=== PATIENT | female | born 1955 | race Caucasian/White ===

== ENCOUNTER 2023-04-28 14:49 | Emergency (ER) | payer MEDICARE, SELFPAY ==
[2023-04-28] VITALS (15 sets, daily range): BP systolic 144–218; BP diastolic 78–112; PULSE 59–72; RESP 14–29; TEMP 36.7; O2SAT 95–97; BMI 23.1
--- NOTE | 2023-04-28 16:32 | ECG_ITS ---
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
--- NOTE | 2023-04-28 16:33 | ED_ITS ---
HPI - General Adult General Chief complaint: Recheck/Abnormal Lab/Rx Stated complaint: HIGH BLOOD PRESSURE Time Seen by Provider: 04/28/23 16:26 Source: patient Mode of arrival: walk-in History of Present Illness HPI narrative: 67-year-old female presents for elevated blood pressure. She has a history of hypertension and takes 20 mg of lisinopril every day and she hasn't missed any doses and she took it this morning, her regular scheduled time. She felt a little bit dizzy today and she checked her blood pressure was high. She had been seen at another hospital's emergency department three days ago and at that time was diagnosed with radiculopathy after an extensive workup. She's been on prednisone. She doesn't complain of fever or chest pain or vomiting. Related Data Home Medications Medication Instructions Recorded Confirmed levothyroxine 25 mcg tablet 25 mcg PO DAILY 04/28/23 04/28/23 lisinopril 20 mg tablet 20 mg PO DAILY 04/28/23 04/28/23 simvastatin 40 mg tablet 40 mg PO QPM 04/28/23 04/28/23 Allergies Allergy/AdvReac Type Severity Reaction Status Date / Time cephalexin [From Keflex] Allergy Severe Verified 04/28/23 15:17 ciprofloxacin [From Cipro] Allergy Severe Verified 04/28/23 15:17 naproxen Allergy Severe Verified 04/28/23 15:17 Penicillins Allergy Severe Verified 04/28/23 15:17 Review of Systems ROS Narrative A ten point review of systems is negative except as noted above. Exam Narrative Exam Narrative: Nurses note and vital signs reviewed and patient is not hypoxic. General: The patient appears well and in no apparent distress. Patient is resting comfortably on cart. Skin: Warm, dry, no pallor noted. There is no rash noted. Head: Normocephalic, atraumatic Eye: Normal conjunctiva, no drainage Ears, Nose, Mouth, and Throat: oral mucosa is moist. Nares patent. Cardiovascular: Regular Rate and Rhythm Respiratory: Patient is in no distress, no accessory muscle use, lungs are clear to auscultation, no wheezing, rales or rhonchi Back: non-tender GI: soft and nontender Musculoskeletal: The patient has no evidence of calf tenderness, no pitting edema, symmetrical pulses noted bilaterally Neurological: A&O, normal speech Psychiatric: Cooperative Constitutional Vital Signs, click to edit/add: Last Vital Signs Temp 98.0 F 04/28/23 15:07 Pulse 68 04/28/23 17:00 Resp 29 H 04/28/23 17:00 BP 152/80 H 04/28/23 17:00 Pulse Ox 97 04/28/23 17:00 O2 Del Method Room Air 04/28/23 15:07 Course Vital Signs Vital signs: Vital Signs Temperature 98.0 F 04/28/23 15:07 Pulse Rate 64 04/28/23 15:07 Respiratory Rate 16 04/28/23 15:07 Blood Pressure 180/102 H 04/28/23 15:07 Pulse Oximetry 95 04/28/23 15:07 Oxygen Delivery Method Room Air 04/28/23 15:07 Temperature 98.0 F 04/28/23 15:07 Pulse Rate 68 04/28/23 17:00 Respiratory Rate 29 H 04/28/23 17:00 Blood Pressure 152/80 H 04/28/23 17:00 Pulse Oximetry 97 04/28/23 17:00 Oxygen Delivery Method Room Air 04/28/23 15:07 Medical Decision Making MDM Narrative Medical decision making narrative: the patient presented with elevated blood pressure. This may be due to the prednisone that she was recently started on and she took her last dose today. She was given IV hydralazine with appropriate decrease in her blood pressure. She has an appointment with her doctor in three days that she will keep. She will check her blood pressure twice a day beginning tomorrow and will have her blood pressure rechecked at her appointment. Treatment diagnosis and follow-up were discussed with the patient. Differential Diagnosis Differential Diagnosis: hypertension, acute kidney injury Lab Data Lab results reviewed: Yes I reviewed the patient's lab results Labs: Lab Results 04/28/23 Range/Units 16:25 WBC 9.3 (4.0-11.0) 10^3/uL RBC 4.01 L (4.20-5.40) 10^6/uL Hgb 12.8 (12.0-16.0) g/dL Hct 39.6 (36.0-48.0) % MCV 98.8 (81.0-99.0) fL MCH 31.9 (26.7-34.0) pg MCHC 32.3 (29.9-35.2) g/dL RDW 13.0 (11.0-15.0) % Plt Count 237 (150-450) 10^3/uL MPV 10.1 (9.5-13.5) fL Neut % (Auto) 84.2 H (43.0-75.0) % Lymph % (Auto) 14.3 L (20.5-60.0) % [place] % (Auto) 0.9 L (1.7-12.0) % Eos % (Auto) 0.0 L (0.9-7.0) % Baso % (Auto) 0.2 (0.2-2.0) % Neut # (Auto) 7.8 H (1.4-6.5) 10^3/uL Lymph # (Auto) 1.3 (1.2-3.8) 10^3/uL [place] # (Auto) 0.1 L (0.3-0.8) 10^3/uL Eos # (Auto) 0.0 (0.0-0.7) 10^3/uL Baso # (Auto) 0.0 (0.0-0.1) 10^3/uL Abs Immat Gran (auto) 0.04 H (0.00-0.03) 10^3/uL Imm/Tot Granulo (auto) 0.4 (0.0-0.5) % Sodium 140 (136-145) mmol/L Potassium 3.9 (3.5-5.1) mmol/L Chloride 104 (98-107) mmol/L Carbon Dioxide 23.5 (21.0-32.0) mmol/L Anion Gap 16.4 BUN 25.0 H (7.0-18.0) mg/dL Creatinine 0.84 (0.55-1.02) mg/dL Est GFR ( Amer) >60 (>=60) Est GFR (Non-Af Amer) >60 (>=60) BUN/Creatinine Ratio 29.8 Glucose 123 H (74-106) mg/dL Calcium 8.9 (8.5-10.1) mg/dL ECG Data Attestation: I personally reviewed and interpreted this ECG as follows: (EKG on my interpretation shows normal sinus rhythm without acute change and a rate of 57.) Critical Care Time Critical Care Time Critical Care Time: Yes Total Critical Care Time: 35 Attestation: Due to the high probability of sudden and clinically significant deterioration in the patient's condition he/she required the highest level of my preparedness to intervene urgently I provided critical care time including documentation time, medication orders and management, reevaluation, vital sign assessment, ordering and reviewing of lab tests, ordering and reviewing of x-ray studies, and admission orders. Aggregate critical care time is 35 minutes including only time during which I was engaged in work directly related to his/her care and did not include time spent treating other patients simultaneously. Discharge Plan Discharge Chief Complaint: Recheck/Abnormal Lab/Rx Clinical Impression: Hypertension Patient Disposition: Home, Self-Care Time of Disposition Decision: 17:21 Condition: Good Mode of Transportation: Private Vehicle Prescriptions / Home Meds: No Action lisinopril 20 mg tablet 20 mg PO DAILY levothyroxine 25 mcg tablet 25 mcg PO DAILY simvastatin 40 mg tablet 40 mg PO QPM Instructions: Hypertension (ED) Additional Instructions: see her doctor at your appointment on Saturday. Check your blood pressure twice a day until then. Stand Alone Forms: Portal Instructions Referrals: Olu Coelho MD [Primary Care Provider] - 1 week
[2023-04-28 16:42] LABS: Basophils Percent Auto 0.2 % (0.2-2.0); Hematocrit 39.6 % (36.0-48.0); Hemoglobin 12.8 g/dL (12.0-16.0); Immature Granulocytes Abs Auto 0.04 10^3/uL (0.00-0.03); Immature Granulocytes Pct Auto 0.4 % (0.0-0.5); Lymphocytes Absolute Auto 1.3 10^3/uL (1.2-3.8); Lymphocytes Percent Auto 14.3 % (20.5-60.0); Mean Corpuscular HGB Conc 32.3 g/dL (29.9-35.2); Mean Corpuscular Hemoglobin 31.9 pg (26.7-34.0); Mean Corpuscular Volume 98.8 fL (81.0-99.0); Mean Platelet Volume 10.1 fL (9.5-13.5); Monocytes Absolute Auto 0.1 10^3/uL (0.3-0.8); Monocytes Percent Auto 0.9 % (1.7-12.0); Neutrophils Absolute Auto 7.8 10^3/uL (1.4-6.5); Neutrophils Percent Auto 84.2 % (43.0-75.0); Platelet Count 237 10^3/uL (150-450); Red Blood Count 4.01 10^6/uL (4.20-5.40); White Blood Count 9.3 10^3/uL (4.0-11.0)
[2023-04-28] MEDS: HYDRALAZINE HCL 20 MG/ML VIAL 10 MG IVP (16:48)
[2023-04-28 16:51] LABS: Anion Gap 16.4; BUN Creatinine Ratio 29.8; Calcium 8.9 mg/dL (8.5-10.1); Carbon Dioxide 23.5 mmol/L (21.0-32.0); Chloride 104 mmol/L (98-107); Estimated GFR (African America >60 (>=60); Estimated GFR (Non-African Ame >60 (>=60); Glucose 123 mg/dL (74-106); Potassium 3.9 mmol/L (3.5-5.1); Sodium 140 mmol/L (136-145)
== END 2023-04-28 17:51 | disposition home or self-care (01) ==
PROVIDERS: Emergency Provider Emergency Medicine; PCP Family Medicine
DX: I10 Essential (primary) hypertension (principal); Z79.899 Other long term (current) drug therapy; Z79.890 Hormone replacement therapy
CPT/HCPCS: 36415; 80048; 85025; 93005; 96374; 99285

== ENCOUNTER 2023-05-22 06:49 | Outpatient (OUT) | payer MEDICARE, SELFPAY ==
--- NOTE | 2023-05-22 | MM_ITS ---
Patient Name: MARK SAL MR#: [id number] : 1955 Exam Date: 05/22/2023 Ordering Doctor: RAFIA Corona CNP RADIOLOGY REPORT PROCEDURE: MM TOMOSYNTHESIS SCREENING BI COMPARISON: MG MAMM SCREEN 3D TACO CAD, 10/31/2021. MG MAMM SCREEN 3D TACO CAD, 10/28/2020. MG MAMM SCREEN TACO W CAD, 10/27/2019. MG MAMM TACO SCRN W CAD DIG, 02/07/2016. INDICATIONS: Taco Screening Mammogram Calculator Name NCI Breast Cancer Risk Assessment Tool 5 Year Breast Cancer Risk 1.40% Lifetime Breast Cancer Risk 4.60% Personal Breast Cancer No Personal Ovarian Cancer No Treatments None Family Cancers Grandmother-maternal with throat cancer at age ~60; Mother with lung cancer at age 82; Father with throat cancer at age 82. LOCATION: [facility] BREAST COMPOSITION: Heterogeneously dense,which may obscure small masses. FINDINGS: DIAGNOSTIC CATEGORY 1--NEGATIVE. RIGHT BREAST: No significant suspicious finding. No significant change has occurred. LEFT BREAST: No significant suspicious finding. No significant change has occurred. RECOMMENDATIONS: ROUTINE MAMMOGRAM AND CLINICAL EVALUATION IN 12 MONTHS. PLEASE NOTE: A NORMAL MAMMOGRAM DOES NOT EXCLUDE THE POSSIBILITY OF BREAST CANCER. A CLINICALLY SUSPICIOUS PALPABLE LUMP SHOULD BE BIOPSIED. Dictated by: Vince Drew M.D. on 05/22/2023 at 10:36 Approved by: Vince Drew M.D. on 05/22/2023 at 10:38
--- OUTSIDE RECORDS SUMMARY | 2023-05-22 06:52 | XMS_ITS | CCD ---
Author Name Unknown Address [address] [facility] [facility] [address] [place] [address] Organization [facility] Care Team Providers Care Compressor Operator Name Role Phone ELIZABETH, DR OLU Martinez Primary Care Unavailable PAY ., DR HUTCHINS Admitting Unavailable PAY ., DR HUTCHINS Attending Unavailable PAY ., DR HUTCHINS Consulting Unavailable NADERER, DR OLU Martinez Primary Care Unavailable NADERER, DR OLU Martinez Admitting Unavailable NADERER, DR OLU Martinez Attending Unavailable NADERER, DR OLU Martinez Consulting Unavailable NADERER, DR OLU Martinez Primary Care Unavailable NADERER, DR OLU Martinez Admitting Unavailable NADERER, DR OLU Martinez Referring Unavailable GERONIMO, DR JIMENEZ Hernandez Consulting Unavailable NADERER, DR OLU Martinez Attending Unavailable NADERER, DR OLU Martinez Consulting Unavailable CECILY Falk Emergency Provider [phone] MD Olu Johnson Primary Care Provider [phone] Candelaria Falk Attending Unavailable Candelaria Falk Admitting Unavailable Olu Johnson Primary Care Unavailable Allergies Allergy Classification Reported Allergen(s) Allergy Type Date of Onset Reaction(s) Facility (1 source) Cephalexin Drug Allergy 07-28-19 [facility] (1 source) Ciprofloxacin Drug Allergy 07-28-19 [facility] (1 source) Penicillin Drug Allergy 07-28-19 [facility] (2 sources) Cephalexin; Translations: [cephalexin] Drug Allergy 04-25-20 Dizziness [facility] (2 sources) Ciprofloxacin; Translations: [ciprofloxacin] Drug Allergy 04-25-20 Gastrointestinal Upset [facility] (2 sources) Penicillins; Translations: [Penicillins] Allergy to substance 04-25-20 Unknown Reaction [facility] Medications Current Medications Medication Drug Class(es) Dates Sig (Normalized) Sig (Original) levothyroxine sodium 0.025 mg oral tablet (1 source) l-Thyroxine Start: 04-25-2023 Levothyroxine Active MCG TABLET April 25, 2023 12:00am lisinopril 20 mg oral tablet (1 source) Angiotensin Converting Enzyme Inhibitor Start: 04-25-2023 Lisinopril Active MG TABLET April 25, 2023 12:00am naproxen 500 mg oral tablet (1 source) Nonsteroidal Anti-inflammatory Drug Start: 04-25-2023 take 500 mg by mouth twice daily Naproxen Active 500 MG PO Twice daily April 25, 2023 12:00am predniSONE 20 mg oral tablet (1 source) Start: 04-25-2023 take 40 mg by mouth once daily Prednisone Active 40 MG PO Daily 6 April 25, 2023 12:00am simvastatin 40 mg oral tablet (1 source) HMG-CoA Reductase Inhibitor Start: 04-25-2023 Simvastatin Active MG TABLET April 25, 2023 12:00am Problems Active Problems Problem Classification Problem Date Documented Da te Episodic/Chronic Disorders of lipid metabolism (2 sources) Pure hypercholesterole fang, unspecified; Translations: [Hyperlipidemia, unspecified] Onset: 10-21-2021 Chronic Essential hypertension (5 sources) Essential (primary) hypertension; Translations: [ESSENTIAL PRIMARY HYPERTENSION] Onset: 10-18-2021 Chronic Headache; including migraine (1 source) Headache; including migraine; Translations: [HEADACHE UNSPECIFIED] Onset: 07-31-2022 Nausea and vomiting (4 sources) Nausea with vomiting, unspecified; Translations: [NAUSEA WITH VOMITING UNSPECIFIED] Onset: 07-27-2022 Episodic Nonspecific chest pain (2 sources) Chest pain; Translations: [Chest pain, unspecified] Onset: 04-25-2023 04-25-2023 Episodic Other aftercare (1 source) 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; Translations: [OTH SHELTER CURRENT DRUG THERAPY] Onset: 07-31-2022 Episodic Other gastrointestinal disorders (1 source) Diarrhea, unspecified; Translations: [DIARRHEA UNSPECIFIED] Onset: 07-31-2022 Episodic Screening and history of mental health and substance abuse codes (1 source) Personal history of nicotine dependence; Translations: [PERSONAL HISTORY OF NICOTINE DEPEND] Onset: 07-31-2022 Episodic Spondylosis; intervertebral disc disorders; other back problems (1 source) Nerve root disorder; Translations: [Radiculopathy, site unspecified] 04-25-2023 Episodic Thyroid disorders (1 source) Hypothyroidism, unspecified; Translations: [HYPOTHYROIDISM UNSPECIFIED] Onset: 10-21-2021 Chronic Past or Other Problems Problem Classification Problem Date Documented Da te Episodic/Chronic Other lower respiratory disease (4 sources) Solitary pulmonary nodule; Translations: [SOLITARY PULMONARY NODULE] Onset: 10-31-2021 Episodic Other screening for suspected conditions (not mental disorders or infectious disease) (1 source) Encounter for screening mammogram for malignant neoplasm of breast; Translations: [ENC SCR MAMMO MALIG NEOPLASM BREAST] Onset: 11-02-2021 Episodic Residual codes; unclassified (1 source) Family history of malignant neoplasm of trachea, bronchus and lung; Translations: [FAM HX MALIG NEOPLSM TRACH BRON LNG] Onset: 11-02-2021 Episodic Residual codes; unclassified (1 source) Family history of malignant neoplasm of other organs or systems; Translations: [FAM HX MALIG NEOPLASM OTH ORGN/SYS] Onset: 11-02-2021 Episodic Results Test Name Value Interpretation Reference Range Facility Activated partial thrombopla stin time (aPTT) in platelet poor plasma by coagulation aOrdered By: Candelaria Falk on 04-25-2023 aPTT Coag (PPP) [Time] 27.5 s 25.1-36.5 [facility] Comment on above: A hematocrit value g reater than 55% may lead to inaccurate results in coagulation testing. Patients having hematocrit values >55% require a special collection tube for coagulation studies. Please contact the laboratory at [phone] for redraw instructions. B-Type Natriuretic Peptideon 04-25-2023 Natriuretic peptide B (Bld) [Mass/Vol] 44.0 pg/mL Normal 5-100 [facility] Comment on above: Result Comment: PERF ORMED BY: [place] [address] PATHOLOGIST SWING RIDE OPERATOR YUSRA WHITE M.D. Performed By: #### P TT, BMP, CBC, HS TROP, PT, BNP #### [address] Basic Metabolic Panelon 12- Anion gap [Moles/Vol] 12.1 mmol/L Normal 6.0-15.0 [facility] Comment on above: Performed By: #### P TT, BMP, CBC, HS TROP, PT, BNP #### [facility] [address] Calcium [Mass/Vol] 9.5 mg/dL Normal 8.6-10.3 [facility] Comment on above: Performed By: #### P TT, BMP, CBC, HS TROP, PT, BNP #### [facility] [address] Chloride [Moles/Vol] 103 mmol/L Normal 98-107 [facility] Comment on above: Performed By: #### P TT, BMP, CBC, HS TROP, PT, BNP #### [facility] [address] CO2 [Moles/Vol] 27.0 mmol/L Normal 21.0-31.0 [facility] Comment on above: Performed By: #### P TT, BMP, CBC, HS TROP, PT, BNP #### [facility] [address] Creatinine [Mass/Vol] 0.81 mg/dL Normal 0.60-1.20 [facility] Comment on above: Performed By: #### P TT, BMP, CBC, HS TROP, PT, BNP #### [facility] [address] [place] [address] [place] Creatinine Clr Calc Pharmacy 57.40 [facility] Comment on above: Result Comment: PERF ORMED BY: [place] [address] PATHOLOGIST SWING RIDE OPERATOR YUSRA WHITE M.D. Performed By: #### P TT, BMP, CBC, HS TROP, PT, BNP #### [facility] [address] [place] [address] [place] GFR/1.73 sq M.predicted MDRD (S/P/Bld) [Vol rate/Area] mL/min/{1.73_m2} Normal [facility] Comment on above: Performed By: #### P TT, BMP, CBC, HS TROP, PT, BNP #### [facility] [address] Glucose [Mass/Vol] 87 mg/dL Normal 70-100 [facility] Comment on above: Result Comment: [place] Glucose Reference Range is dependent on time and content of last meal. Glucose of more than 200 mg/dL in a nonstressed, ambulatory subject supports the diagnosis of Diabetes Mellitus. ADA recommended reference range Performed By: #### P TT, BMP, CBC, HS TROP, PT, BNP #### [facility] [address] Potassium [Moles/Vol] 4.1 mmol/L Normal 3.5-5.1 [facility] Comment on above: Performed By: #### P TT, BMP, CBC, HS TROP, PT, BNP #### [address] Sodium [Moles/Vol] 138 mmol/L Normal 136-145 [facility] Comment on above: Performed By: #### P TT, BMP, CBC, HS TROP, PT, BNP #### [address] Urea nitrogen [Mass/Vol] 17 mg/dL Normal 7-25 [facility] Comment on above: Performed By: #### P TT, BMP, CBC, HS TROP, PT, BNP #### [place] [address] [place] Basophils Auto (Bld) [#/Vol] Ordered By: Candelaria Falk on 04-25-2023 Basophils (Bld) [#/Vol] 0.0 10*3/uL 0.0-0.2 [facility] Basophils/100 WBC Auto (Bld) Ordered By: Candelaria Falk on 04-25-2023 Basophils/100 WBC (Bld) 0.3 % . [facility] COVID CepheidOrdered By: Carie Falk on 04-25-2023 SARS-CoV-2 (COVID-19) Ab IA Ql Negative Negative [facility] Comment on above: This is a duplicate Cepheid Xpert Xpress CoV-2/Flu/RSV Plus RNA by RT-PCR result to be used for statistical tracking purpose only. SARS-CoV-2 (COVID-19) RNA CASSIDY+probe Ql (Unsp spec) [facility] COVID-19 / Flu A/B / RSV PCR on 04-25-2023 SARS-CoV-2 (COVID-19) RNA CASSIDY+probe Ql (Unsp spec) COVID-19 Cepheid Result Negative for SARS-CoV-2 RNA by RT-PCR Flu A Cepheid Result Negative for Flu A RNA by RT-PCR Flu B Cepheid Result Negative for Flu B RNA by RT-PCR RSV Cepheid Result Negative for RSV RNA by RT-PCR COVID19 Blank Space -- Reference: Negative COVID19 Blank Space -- Cepheid Disclaimer The Cepheid Xpert Xpress CoV-2/Flu/RSV Plus has Cepheid Disclaimer not been FDA cleared or approved; this test has Cepheid Disclaimer been authorized by FDA under an EUA for use by Cepheid Disclaimer authorized laboratories; this test has been Cepheid Disclaimer authorized only for the simultaneous qualitative Cepheid Disclaimer detection and differentiation of nucleic acids from Cepheid Disclaimer SARS-CoV-2, influenza A, influenza B, and Cepheid Disclaimer respiratory syncytial virus (RSV), and not for any Cepheid Disclaimer other viruses or pathogens; and this test is only Cepheid Disclaimer authorized for the duration of the declaration that Cepheid Disclaimer circumstances exist justifying the authorization of Cepheid Disclaimer emergency use of in vitro diagnostic tests for Cepheid Disclaimer detection and/or diagnosis of COVID-19 under Cepheid Disclaimer Section 564(b)(1) of the Act, 21 U.S.C. 360bbb- Cepheid Disclaimer 3(b)(1), unless the authorization is terminated or Cepheid Disclaimer revoked sooner. PERFORMED BY: [place] [address] PATHOLOGIST SWING RIDE OPERATOR YUSRA WHITE M.D. [facility] Comment on above: Performed By: #### C EPHEID NEG, COVID19 FLU RSV #### [address] head/brain wo conon 04-25 CT head/brain wo con [facility] [place] [address] [place] [address] CT Scan Report Signed Patient: Edilma Leonardo MR#: [id number] : 1955 Acct:[id number] Age/Sex: 67 / F ADM Date: 04/25/23 Loc: ER Room: Type: [facility] ER Attending Dr: Copies to: Candelaria Falk APRN Ordering Provider: Candelaria Falk APRN Date of Service: 04/25/23 CT/CT head/brain wo con: left arm deficit CT head/brain wo con 04/25/2023 6:08 PM SIGNS AND SYMPTOMS: Left arm numbness and tingling, chest pain TECHNIQUE:Multi-detector CT axial slices of the brain were obtained without IV contrast. CT was performed with one or more of the following dose reduction techniques: Automated exposure control, adjustment of the mA and/or kV according to patient size, or use of iterative reconstruction technique. COMPARISON: None. FINDINGS: There is no shift of the midline structures, acute intracranial bleeding, mass effects, or evidence of acute ischemia. There is periventricular and subcortical white matter hypoattenuation suggesting mild chronic microvascular ischemic change. The ventricular system is normal in size. The brainstem and the cerebellum are unremarkable. The visualized intraorbital contents, the visualized paranasal sinuses, and the infratemporal soft tissues show no acute abnormality. The osseous structures in the skull base and the calvarium show no abnormality. CT/CT head/brain wo con IMPRESSION: No acute intracranial pathology. Findings suggest chronic microvascular ischemic change. Impression dictated by: Lamin Park M.D.04/25/2023 9:04 PM Dictation Location: [place] [address] Transcribed By: JONATHON 04/25/232103 Dictated By: Lamin Park II, MD 04/25/232101 Signed By: 04/25/232103 Normal [facility] Calcium [Mass/volume] in Ser um or PlasmaOrdered By: Candelaria Falk on 04-25-2023 Calcium [Mass/Vol] 9.5 mg/dL 8.6-10.3 [facility] Carbon dioxide, total [Moles /volume] in Serum or PlasmaOrdered By: Candelaria Falk on 04-25-2023 CO2 [Moles/Vol] 27.0 mmol/L 21.0-31.0 [facility] Cepheid COVID PCR Negativeon 04-25-2023 SARS-CoV-2 (COVID-19) RNA CASSIDY+probe Ql (Unsp spec) Negative Normal Negative [facility] Comment on above: Result Comment: This is a duplicate Cepheid Xpert Xpress CoV-2/Flu/RSV Plus RNA by RT-PCR result to be used for statistical tracking purpose only. PERFORMED BY: [place] [address] PATHOLOGIST SWING RIDE OPERATOR YUSRA WHITE M.D. Performed By: #### C EPHEID NEG, COVID19 FLU RSV #### [address] Chloride [Moles/volume] in S pawel or PlasmaOrdered By: Candelaria Falk on 04-25-2023 Chloride [Moles/Vol] 103 mmol/L 98-107 [facility] Complete Blood Count Auto Di ffon 04-25-2023 Basophils (Bld) [#/Vol] 0.0 10*3/uL Normal 0.0-0.2 [facility] Comment on above: Result Comment: PERF ORMED BY: [place] [address] PATHOLOGIST SWING RIDE OPERATOR YUSRA WHITE M.D. Performed By: #### P TT, BMP, CBC, HS TROP, PT, BNP #### [address] Basophils/100 WBC (Bld) 0.3 % Normal . [facility] Comment on above: Performed By: #### P TT, BMP, CBC, HS TROP, PT, BNP #### [address] Eosinophils (Bld) [#/Vol] 0.2 10*3/uL Normal 0.0-0.45 [facility] Comment on above: Performed By: #### P TT, BMP, CBC, HS TROP, PT, BNP #### [address] Eosinophils/100 WBC (Bld) 2.6 % Normal . [facility] Comment on above: Performed By: #### P TT, BMP, CBC, HS TROP, PT, BNP #### [address] Erythrocyte distribution width (RBC) [Ratio] 13.5 % Normal 11.9-15.3 [facility] Comment on above: Performed By: #### P TT, BMP, CBC, HS TROP, PT, BNP #### [address] Hematocrit (Bld) [Volume fraction] 42.5 % Normal 34.0-46.4 [facility] Comment on above: Performed By: #### P TT, BMP, CBC, HS TROP, PT, BNP #### [address] Hemoglobin (Bld) [Mass/Vol] 14.4 g/dL Normal 11.8-15.4 [facility] Comment on above: Performed By: #### P TT, BMP, CBC, HS TROP, PT, BNP #### [address] Lymphocytes (Bld) [#/Vol] 2.9 10*3/uL Normal 1.00-4.8 [facility] Comment on above: Performed By: #### P TT, BMP, CBC, HS TROP, PT, BNP #### [address] Lymphocytes/100 WBC (Bld) 40.1 % Normal . [facility] Comment on above: Performed By: #### P TT, BMP, CBC, HS TROP, PT, BNP #### [address] MCH (RBC) [Entitic mass] 31.9 pg Normal 24.7-34.3 [facility] Comment on above: Performed By: #### P TT, BMP, CBC, HS TROP, PT, BNP #### [address] MCV (RBC) [Entitic vol] 93.8 fL Normal 80-100 [facility] Comment on above: Performed By: #### P TT, BMP, CBC, HS TROP, PT, BNP #### [address] Mean Corpuscular HGB Conc 34.0 g/dL Normal 32.0-35.0 [facility] Comment on above: Performed By: #### P TT, BMP, CBC, HS TROP, PT, BNP #### [address] Monocytes (Bld) [#/Vol] 0.6 10*3/uL Normal 0.0-0.8 [facility] Comment on above: Performed By: #### P TT, BMP, CBC, HS TROP, PT, BNP #### [address] Monocytes/100 WBC (Bld) 20.21 % High 0.00-20.00 [facility] Comment on above: Result Comment: For adults in ED, MDW > 20.0 may be associated with a higher risk of sepsis during the first 12 hrs of hospital admission Performed By: #### P TT, BMP, CBC, HS TROP, PT, BNP #### [address] Monocytes/100 WBC (Bld) 7.9 % Normal . [facility] Comment on above: Performed By: #### P TT, BMP, CBC, HS TROP, PT, BNP #### [address] Neutrophils (Bld) [#/Vol] 3.5 10*3/uL Normal 1.8-7.7 [facility] Comment on above: Performed By: #### P TT, BMP, CBC, HS TROP, PT, BNP #### [address] Neutrophils/100 WBC (Bld) 49.1 % Normal . [facility] Comment on above: Performed By: #### P TT, BMP, CBC, HS TROP, PT, BNP #### [address] NRBC% 0.0 /100{WBC} Normal 0-0.5 [facility] Comment on above: Performed By: #### P TT, BMP, CBC, HS TROP, PT, BNP #### [address] Platelet mean volume (Bld) [Entitic vol] 8.1 fL Normal 6.3-10.7 [facility] Comment on above: Performed By: #### P TT, BMP, CBC, HS TROP, PT, BNP #### [place] [address] [place] Platelets (Bld) [#/Vol] 247 10*3/uL Normal 150-450 [facility] Comment on above: Performed By: #### P TT, BMP, CBC, HS TROP, PT, BNP #### [place] [address] [place] RBC (Bld) [#/Vol] 4.53 10*6/uL Normal 3.60-5.00 [facility] Comment on above: Performed By: #### P TT, BMP, CBC, HS TROP, PT, BNP #### [place] [address] [place] WBC (Bld) [#/Vol] 7.2 10*3/uL Normal 3.8-11.6 [facility] Comment on above: Performed By: #### P TT, BMP, CBC, HS TROP, PT, BNP #### [facility] [address] Creatinine [Mass/volume] in Serum or PlasmaOrdered By: Candelaria Falk on 04-25-2023 Creatinine [Mass/Vol] 0.81 mg/dL 0.60-1.20 [facility] ECG 12 lead ECGon 04-25-2023 ECG 12 lead ECG [facility] [place] [address] [place] [address] Electrocardiograph Report Signed Patient: Edilma Leonardo MR#: [id number] : 1955 Acct:[id number] Age/Sex: 67 / F ADM Date: 04/25/23 Loc: ER Room: Type: PRE ER Attending Dr: Ordering Provider: Candelaria Falk APRN Date of Service: 04/25/23 ECG/ECG 12 lead ECG: Chest Pain Copies to: Test Reason : Blood Pressure : / mmHG Vent. Rate : 073 BPM Atrial Rate : 073 BPM P-R Int : 150 ms QRS Dur : 070 ms QT Int : 388 ms P-R-T Axes : 077 082 066 degrees QTc Int : 427 ms Normal sinus rhythm Confirmed by Santiago GLORIA DO ([id number]) on 04/25/2023 6:14:25 PM Referred By: Electronically Signed By:Santiago GLORIA DO Transcribed By: MUS Signed By Santiago Gloria DO 1 06/26/22 181 Normal [facility] Eosinophils Auto (Bld) [#/Vo l]Ordered By: Candelaria Falk on 04-25-2023 Eosinophils (Bld) [#/Vol] 0.2 10*3/uL 0.0-0.45 [facility] Eosinophils/100 WBC Auto (Bl d)Ordered By: Candelaria Falk on 04-25-2023 Eosinophils/100 WBC (Bld) 2.6 % . [facility] Erythrocyte distribution wid th Auto (RBC) [Ratio]Ordered By: Candelaria Falk on 04-25-2023 Erythrocyte distribution width (RBC) [Ratio] 13.5 % 11.9-15.3 [facility] Glucose [Mass/volume] in Ser um or PlasmaOrdered By: Candelaria Falk on 04-25-2023 Glucose [Mass/Vol] 87 mg/dL 70-100 [facility] Comment on above: ADA recommended refe rence rangeRandom Glucose Reference Range is dependent on time and content of last meal. Glucose of more than 200 mg/dL in a nonstressed, ambulatory subject supports the diagnosis of Diabetes Mellitus. Hematocrit Auto (Bld) [Volum e fraction]Ordered By: Candelaria Falk on 04-25-2023 Hematocrit (Bld) [Volume fraction] 42.5 % 34.0-46.4 [facility] Hemoglobin [Mass/volume] in BloodOrdered By: Candelaria Falk on 04-25-2023 Hemoglobin (Bld) [Mass/Vol] 14.4 g/dL 11.8-15.4 [facility] INR in Platelet poor plasma by Coagulation assayOrdered By: Candelaria Falk on 04-25-2023 INR Coag (PPP) [Relative time] 1.0 {INR} [facility] Comment on above: INR Therapeutic Rang e A) Pre- and Peroperative OAT started two weeks before surgery. NOT HIP SURGERY: 1.5 - 2.5 HIP SURGERY: 2 - 3B) Primary and secondary prevention of venous THROMBOSIS: 2 - 3C) Active venous thrombosis, pulmonary embolismand prevention of recurrent venous thrombosis: 2 - 3D) Prevention of arterial thromboembolismincluding patients with mechanical heart valves: 3 - 4.5 Leukocytes [#/volume] correc jovana for nucleated erythrocytes in Blood by Automated counOrdered By: Candelaria Falk on 04-25-2023 WBC corrected for nucl RBC Auto (Bld) [#/Vol] 7.2 10*3/uL 3.8-11.6 [facility] Lymphocytes Auto (Bld) [#/Vo l]Ordered By: Candelaria Falk on 04-25-2023 Lymphocytes (Bld) [#/Vol] 2.9 10*3/uL 1.00-4.8 [facility] Lymphocytes/100 WBC Auto (Bl d)Ordered By: Candelaria Falk on 04-25-2023 Lymphocytes/100 WBC (Bld) 40.1 % . [facility] MCH Auto (RBC) [Entitic mass ]Ordered By: Candelaria Falk on 04-25-2023 MCH (RBC) [Entitic mass] 31.9 pg 24.7-34.3 [facility] MCHC Auto (RBC) [Mass/Vol]Or dered By: Candelaria Falk on 04-25-2023 MCHC (RBC) [Mass/Vol] 34.0 g/dL 32.0-35.0 [facility] MCV Auto (RBC) [Entitic vol] Ordered By: Candelaria Falk on 04-25-2023 MCV (RBC) [Entitic vol] 93.8 fL 80-100 [facility] Monocyte distribution width [Entitic volume] in Blood by AutomatedOrdered By: Candelaria Falk on 04-25-2023 Monocyte distribution width Auto (Bld) [Entitic vol] 20.21 % 0.00-20.00 [facility] Comment on above: For adults in ED, MD W > 20.0 may be associated with a higher risk of sepsis during the first 12 hrs of hospital admission Monocytes Auto (Bld) [#/Vol] Ordered By: Candelaria Falk on 04-25-2023 Monocytes (Bld) [#/Vol] 0.6 10*3/uL 0.0-0.8 [facility] Monocytes/100 WBC Auto (Bld) Ordered By: Candelaria Falk on 04-25-2023 Monocytes/100 WBC (Bld) 7.9 % . [facility] Natriuretic peptide B [Mass/ Vol]Ordered By: Candelaria Falk on 04-25-2023 Natriuretic peptide B (Bld) [Mass/Vol] 44.0 pg/mL 5-100 [facility] Neutrophils Auto (Bld) [#/Vo l]Ordered By: Candelaria Falk on 04-25-2023 Neutrophils (Bld) [#/Vol] 3.5 10*3/uL 1.8-7.7 [facility] Neutrophils/100 WBC Auto (Bl d)Ordered By: Candelaria Falk on 04-25-2023 Neutrophils/100 WBC (Bld) 49.1 % . [facility] No Panel InformationOrdered By: Candelaria Snelltata on 04-25-2023 Estimated GFR (CKD-EPI) > 60.0 mL/Min [facility] Creatinine Clearance (Chem 57.40 [facility] Nucleated erythrocytes [Pres ence] in Blood by Automated countOrdered By: Candelaria Falk on 04-25-2023 Nucleated RBC Auto Ql (Bld) 0.0 /100{WBC} 0-0.5 [facility] Partial Thromboplastin Timeo n 04-25-2023 aPTT Coag (Bld) [Time] 27.5 s Normal 25.1-36.5 [facility] Comment on above: Result Comment: A he matocrit value greater than 55% may lead to inaccurate results in coagulation testing. Patients having hematocrit values >55% require a special collection tube for coagulation studies. Please contact the laboratory at [phone] for redraw instructions. PERFORMED BY: [place] [address] PATHOLOGIST SWING RIDE OPERATOR YUSRA WHITE M.D. Performed By: #### H S TROP #### [address] Platelet mean volume Auto (B ld) [Entitic vol]Ordered By: Candelaria Falk on 04-25-2023 Platelet mean volume (Bld) [Entitic vol] 8.1 fL 6.3-10.7 [facility] Platelets Auto (Bld) [#/Vol] Ordered By: Candelaria Falk on 04-25-2023 Platelets (Bld) [#/Vol] 247 10*3/uL 150-450 [facility] Potassium [Moles/volume] in Serum or PlasmaOrdered By: Candelaria Falk on 04-25-2023 Potassium [Moles/Vol] 4.1 mmol/L 3.5-5.1 [facility] Prothrombin Time INRon 04-25 INR Coag (PPP) [Relative time] 1.0 {INR} Normal [facility] Comment on above: Result Comment: INR Therapeutic Range A) Pre- and Peroperative OAT started two weeks before surgery. NOT HIP SURGERY: 1.5 - 2.5 HIP SURGERY: 2 - 3 B) Primary and secondary prevention of venous THROMBOSIS: 2 - 3 C) Active venous thrombosis, pulmonary embolism and prevention of recurrent venous thrombosis: 2 - 3 D) Prevention of arterial thromboembolism including patients with mechanical heart valves: 3 - 4.5 Performed By: #### P TT, BMP, CBC, HS TROP, PT, BNP #### [facility] [id number] [facility] PT Coag (PPP) [Time] 11.5 s Normal 9.0-12.9 [facility] Comment on above: Result Comment: A he matocrit value greater than 55% may lead to inaccurate results in coagulation testing. Patients having hematocrit values >55% require a special collection tube for coagulation studies. Please contact the laboratory at [phone] for redraw instructions. Performed By: #### P TT, BMP, CBC, HS TROP, PT, BNP #### [facility] [id number] [facility] Prothrombin time (PT)Ordered By: Candelaria Falk on 04-25-2023 PT Coag (PPP) [Time] 11.5 s 9.0-12.9 [facility] Comment on above: A hematocrit value g reater than 55% may lead to inaccurate results in coagulation testing. Patients having hematocrit values >55% require a special collection tube for coagulation studies. Please contact the laboratory at [phone] for redraw instructions. RBC Auto (Bld) [#/Vol]Ordere d By: Candelaria Falk on 04-25-2023 RBC (Bld) [#/Vol] 4.53 10*6/uL 3.60-5.00 [facility] Serum or plasma anion gap de terminationOrdered By: Candelaria Falk on 04-25-2023 Anion gap [Moles/Vol] 12.1 mmol/L 6.0-15.0 [facility] Sodium [Moles/volume] in Ser um or PlasmaOrdered By: Candelaria Falk on 04-25-2023 Sodium [Moles/Vol] 138 mmol/L 136-145 [facility] Troponin I High Sensitivityo n 04-25-2023 Troponin I High Sensitivity 3.8 pg/mL Normal 0.0-15.0 [facility] Comment on above: Result Comment: PERF ORMED BY: [place] [address] PATHOLOGIST SWING RIDE OPERATOR YUSRA WHITE M.D. Performed By: #### H S TROP #### [address] Troponin I High Sensitivity 3.9 pg/mL Normal 0.0-15.0 [facility] Comment on above: Result Comment: PERF ORMED BY: [place] [address] PATHOLOGIST SWING RIDE OPERATOR YUSRA WHITE M.D. Performed By: #### P TT, BMP, CBC, HS TROP, PT, BNP #### [facility] [address] [place] [address] Troponin I.cardiac [Mass/vol ume] in Serum or Plasma by Detection limit <= 0.01 ng/Ordered By: Candelaria Falk on 04-25-2023 Troponin I.cardiac DL <= 0.01 ng/mL [Mass/Vol] 3.8 pg/mL 0.0-15.0 [facility] Urea nitrogen [Mass/volume] in Serum or PlasmaOrdered By: Candelaria Falk on 04-25-2023 Urea nitrogen [Mass/Vol] 17 mg/dL 7-25 [facility] WBC Auto (Bld) [#/Vol]Ordere d By: Candelaria Falk on 04-25-2023 WBC (Bld) [#/Vol] 7.2 10*3/uL 3.8-11.6 [facility] XR chest 2V*on 04-25-2023 XR chest 2V* [facility] [place] [address] [place] [id number] XRay Report Signed Patient: Edilma Leonardo MR#: [id number] : 1955 Acct:[id number] Age/Sex: 67 / F ADM Date: 04/25/23 Loc: ER Room: Type: [facility] ER Attending Dr: Copies to: Candelaria Falk APRN Ordering Provider: Candelaria Falk APRN Date of Service: 04/25/23 XR/XR chest 2V*: Chest Pain XR chest 2V* 04/25/2023 5:48 PM SIGNS AND SYMPTOMS: Chest and left arm pain, hypertension PROTOCOL: Frontal and lateral radiographs of the chest COMPARISON: None FINDINGS: The trachea is midline. The heart and mediastinal structures are within normal limits. The lung parenchyma is clear. The bony thorax is intact. XR/XR chest 2V* IMPRESSION: No acute cardiopulmonary pathology. Impression dictated by: Lamin Park M.D.04/25/2023 6:34 PM Dictation Location: [place] [address] Transcribed By: [facility] 04/25/231833 Dictated By: Lamin Park II, MD 04/25/231832 Signed By: 04/25/231833 [facility] CBC W MANUAL DIFFon 07-28-19 ATYPICAL LYMPH # Normal [facility] Comment on above: Performed By: #### F T3, ALT, AST, BMP, TSH, LIPID #### [facility] [address] [place] [address] Dr. Reji Pickett ATYPICAL LYMPH % Normal [facility] Comment on above: Performed By: #### F T3, ALT, AST, BMP, TSH, LIPID #### [facility] [address] [address] [address] Reji Pickett BAND # Normal 0.0-0.3 [facility] Comment on above: Performed By: #### F T3, ALT, AST, BMP, TSH, LIPID #### [facility] [address] [address] [address] Reji Pickett BAND % Normal 0-5 [facility] Comment on above: Performed By: #### F T3, ALT, AST, BMP, TSH, LIPID #### [facility] [address] [address] [address] Reji Pickett BASOM # 0.00 103/ul Normal 0.00-0.10 [facility] Comment on above: Performed By: #### F T3, ALT, AST, BMP, TSH, LIPID #### [facility] [address] [address] [address] Reji Pickett BASOM % 0.0 % Critically low 0.2-2.0 [facility] Comment on above: Performed By: #### F T3, ALT, AST, BMP, TSH, LIPID #### [facility] [address] [address] [address] Reji Pickett BLAST # Normal [facility] Comment on above: Performed By: #### F T3, ALT, AST, BMP, TSH, LIPID #### [facility] [address] [place] [address] Dr. Reji Pickett BLAST % Normal [facility] Comment on above: Performed By: #### F T3, ALT, AST, BMP, TSH, LIPID #### [facility] [address] [place] [address] Dr. Reji Pickett CORRECTED WBC Normal 4.0-11.0 [facility] Comment on above: Performed By: #### F T3, ALT, AST, BMP, TSH, LIPID #### [facility] [address] [place] [address] Dr. Reji Pickett EOS # 0.10 103/ul Normal 0.00-0.70 [facility] Comment on above: Performed By: #### F T3, ALT, AST, BMP, TSH, LIPID #### [facility] [address] [place] [address] Dr. Reji Pickett EOS% 1.0 % Normal 0.9-7.0 [facility] Comment on above: Performed By: #### F T3, ALT, AST, BMP, TSH, LIPID #### [facility] [address] [place] [address] Dr. Reji Pickett HCT 41.1 % Normal 36.0-48.0 [facility] Comment on above: Performed By: #### F T3, ALT, AST, BMP, TSH, LIPID #### [facility] [address] [place] [address] Dr. Reji Pickett HGB 13.6 g/dl Normal 12.0-16.0 [facility] Comment on above: Performed By: #### F T3, ALT, AST, BMP, TSH, LIPID #### [facility] [address] [address] [address] Reji Pickett LYMPHM # 0.40 103/ul Critically low 1.20-3.80 [facility] Comment on above: Performed By: #### F T3, ALT, AST, BMP, TSH, LIPID #### [facility] [address] [place] [address] Dr. Reji Pickett LYMPHM% 4.0 % Critically low 20.5-60.0 [facility] Comment on above: Performed By: #### F T3, ALT, AST, BMP, TSH, LIPID #### [facility] [address] [place] [address] Dr. Reji Pickett MCH 31.3 pg Normal 26.7-34.0 [facility] Comment on above: Performed By: #### F T3, ALT, AST, BMP, TSH, LIPID #### [facility] [address] [place] [address] Dr. Reji Pickett MCHC 33.1 g/dl Normal 29.9-35.2 [facility] Comment on above: Performed By: #### F T3, ALT, AST, BMP, TSH, LIPID #### [facility] [address] [place] [address] Dr. Reji Pickett MCV 94.5 fL Normal 81.0-99.0 [facility] Comment on above: Performed By: #### F T3, ALT, AST, BMP, TSH, LIPID #### [facility] [address] [place] [address] Dr. Reji Pickett METAMYELOCYTE # Normal [facility] Comment on above: Performed By: #### F T3, ALT, AST, BMP, TSH, LIPID #### [facility] [address] [address] [address] Reji Pickett METAMYELOCYTE % Normal [facility] Comment on above: Performed By: #### F T3, ALT, AST, BMP, TSH, LIPID #### [facility] [address] [place] [address] Dr. Reji Pickett MONOM# 0.61 103/ul Normal 0.30-0.80 [facility] Comment on above: Performed By: #### F T3, ALT, AST, BMP, TSH, LIPID #### [facility] [address] [place] [address] Dr. Reji Pickett MONOM% 6.0 % Normal 1.7-12.0 [facility] Comment on above: Performed By: #### F T3, ALT, AST, BMP, TSH, LIPID #### [facility] [address] [place] [address] Dr. Reji Pickett MPV 9.8 fL Normal 9.5-13.5 [facility] Comment on above: Performed By: #### F T3, ALT, AST, BMP, TSH, LIPID #### [facility] [address] [place] [address] Dr. Reji Pickett MYELOCYTE # Normal [facility] Comment on above: Performed By: #### F T3, ALT, AST, BMP, TSH, LIPID #### [facility] [address] [place] [address] Dr. Reji Pickett MYELOCYTE % Normal [facility] Comment on above: Performed By: #### F T3, ALT, AST, BMP, TSH, LIPID #### [facility] [address] [place] [address] Dr. Reji Pickett NRBC Normal [facility] Comment on above: Performed By: #### F T3, ALT, AST, BMP, TSH, LIPID #### [facility] [address] [place] [address] Dr. Reji Pickett PLT 191 103/ul Normal 150-450 [facility] Comment on above: Performed By: #### F T3, ALT, AST, BMP, TSH, LIPID #### [facility] [address] [place] [address] Dr. Reji Pickett RBC 4.35 106/ul Normal 4.20-5.40 [facility] Comment on above: Performed By: #### F T3, ALT, AST, BMP, TSH, LIPID #### [facility] [address] [place] [address] Dr. Reji Pickett RDW 13.7 % Normal 11.0-15.0 [facility] Comment on above: Performed By: #### F T3, ALT, AST, BMP, TSH, LIPID #### [facility] [address] [place] [address] Dr. Reji Pickett SEG # 8.99 103/ul Critically high 1.40-6.50 [facility] Comment on above: Performed By: #### F T3, ALT, AST, BMP, TSH, LIPID #### [facility] [address] [place] [address] Dr. Reji Pickett SEG % 89.0 % Critically high 43.0-75.0 [facility] Comment on above: Performed By: #### F T3, ALT, AST, BMP, TSH, LIPID #### [facility] [address] [place] [address] Dr. Reji Pickett WBC 10.1 103/ul Normal 4.0-11.0 [facility] Comment on above: Performed By: #### F T3, ALT, AST, BMP, TSH, LIPID #### [facility] [address] [place] [address] Dr. Reji Pickett CPKon 07-27-2022 CK [Catalytic activity/Vol] 53 U/L Normal 26-192 [facility] Comment on above: Performed By: #### F T3, ALT, AST, BMP, TSH, LIPID #### [facility] [address] [place] [address] Dr. Reji Pickett ER URINE PROFILEon 3 Bilirubin Ql (U) Negative Normal NEGATIVE [facility] Comment on above: Performed By: #### E RUR #### [facility] [address] [place] [address] Dr. Reji Pickett Clarity (U) CLEAR Normal CLEAR [facility] Comment on above: Performed By: #### E RUR #### [facility] [address] [place] [address] Dr. Reji Pickett Color (U) LT. YELLOW Normal YELLOW [facility] Comment on above: Performed By: #### E RUR #### [facility] [address] [place] [address] Dr. Reji BOYD A micrscopic examina tion will be performed if indicated. Normal [facility] Comment on above: Performed By: #### E RUR #### [facility] [address] [place] [address] Dr. Reji Pickett Glucose Ql (U) Negative Normal NEGATIVE [facility] Comment on above: Performed By: #### E RUR #### [facility] [address] [place] [address] Dr. Reji Pickett Hemoglobin Ql (U) Negative Normal NEGATIVE [facility] Comment on above: Performed By: #### E RUR #### [facility] [address] [place] [address] Dr. Reji Pickett Ketones Ql (U) TRACE Abnormal NEGATIVE [facility] Comment on above: Performed By: #### E RUR #### [facility] [address] [place] [address] Dr. Reji Pickett LEUKOCYTES Negative Normal NEGATIVE [facility] Comment on above: Performed By: #### E RUR #### [facility] [address] [place] [address] Dr. Reji Pickett Nitrite Ql (U) Negative Normal NEGATIVE [facility] Comment on above: Performed By: #### E RUR #### [facility] [address] [place] [address] Dr. Reji Pickett pH (U) 6.0 [pH] Normal 5-9 [facility] Comment on above: Performed By: #### E RUR #### [facility] [address] [place] [address] Dr. Reji Pickett SPEC GRAVITY 1.020 Normal 1.005-<=1.0 25 [facility] Comment on above: Performed By: #### E RUR #### [facility] [address] [place] [address] Dr. Reji Pickett UA PROTEIN Negative Normal NEGATIVE/ TRACE [facility] Comment on above: Performed By: #### E RUR #### [facility] [address] [place] [address] Dr. Reji Pickett UR MICRO IND NOT INDICATED Normal [facility] Comment on above: Performed By: #### E RUR #### [facility] [address] [place] [address] Dr. Reji Pickett Urobilinogen Qn (U) 0.2 {Yamile'U}/dL Normal 0.2 - 1. 0 [facility] Comment on above: Performed By: #### E RUR #### [facility] [address] [place] [address] Dr. Reji Pickett LIPASEon 07-27-2022 Lipase [Catalytic activity/Vol] 138.0 U/L Normal 73.0-393.0 [facility] Comment on above: Performed By: #### F T3, ALT, AST, BMP, TSH, LIPID #### [facility] [address] [place] [address] Dr. Reji Pickett PROF 14(COMP METB)on 023 Albumin [Mass/Vol] 3.8 g/dL Normal 3.4-5.0 [facility] Comment on above: Performed By: #### F T3, ALT, AST, BMP, TSH, LIPID #### [facility] [address] [place] [address] Dr. Reji Pickett Albumin/Globulin [Mass ratio] 1.4 {ratio} Normal [facility] Comment on above: Performed By: #### F T3, ALT, AST, BMP, TSH, LIPID #### [facility] [address] [place] [address] Dr. Reji Pickett ALP [Catalytic activity/Vol] 74 U/L Normal 46-116 [facility] Comment on above: Performed By: #### F T3, ALT, AST, BMP, TSH, LIPID #### [facility] [address] [place] [address] Dr. Reji Pickett ALT [Catalytic activity/Vol] 36 U/L Normal 14-59 [facility] Comment on above: Performed By: #### F T3, ALT, AST, BMP, TSH, LIPID #### [facility] [address] [address] [address] Reji Pickett Anion gap [Moles/Vol] 14.1 mmol/L Normal [facility] Comment on above: Performed By: #### F T3, ALT, AST, BMP, TSH, LIPID #### [facility] [address] [place] [address] Dr. Reji Pickett AST [Catalytic activity/Vol] 25 U/L Normal 15-37 [facility] Comment on above: Performed By: #### F T3, ALT, AST, BMP, TSH, LIPID #### [facility] [address] [place] [address] Dr. Reji Pickett Bilirubin [Mass/Vol] 0.8 mg/dL Normal 0.2-1.0 [facility] Comment on above: Performed By: #### F T3, ALT, AST, BMP, TSH, LIPID #### [facility] [address] [place] [address] Dr. Reji Pickett Calcium [Mass/Vol] 8.7 mg/dL Normal 8.5-10.1 [facility] Comment on above: Performed By: #### F T3, ALT, AST, BMP, TSH, LIPID #### [facility] [address] [place] [address] Dr. Reji Pickett Chloride [Moles/Vol] 111 mmol/L Critically high 98-107 [facility] Comment on above: Performed By: #### F T3, ALT, AST, BMP, TSH, LIPID #### [facility] [address] [place] [address] Dr. Reji Pickett CO2 [Moles/Vol] 22.7 mmol/L Normal 21.0-32.0 [facility] Comment on above: Performed By: #### F T3, ALT, AST, BMP, TSH, LIPID #### [facility] [address] [place] [address] Dr. Reji Pickett Creatinine [Mass/Vol] 0.79 mg/dL Normal 0.55-1.02 [facility] Comment on above: Performed By: #### F T3, ALT, AST, BMP, TSH, LIPID #### [facility] [address] [address] [address] Reji Pickett EGFR-AF TUVALUAN >60 Normal >=60 [facility] Comment on above: Performed By: #### F T3, ALT, AST, BMP, TSH, LIPID #### [facility] [address] [address] [address] Reji Pickett EGFR-NON AF TUVALUAN >60 Normal >=60 [facility] Comment on above: Performed By: #### F T3, ALT, AST, BMP, TSH, LIPID #### [facility] [address] [address] [address] Reji Pickett Globulin (S) [Mass/Vol] 2.7 g/dL Normal [facility] Comment on above: Performed By: #### F T3, ALT, AST, BMP, TSH, LIPID #### [facility] [address] [address] [address] Reji Pickett Glucose [Mass/Vol] 94 mg/dL Normal 74-106 [facility] Comment on above: Performed By: #### F T3, ALT, AST, BMP, TSH, LIPID #### [facility] [address] [address] [address] Reji Pickett Potassium [Moles/Vol] 4.8 mmol/L Normal 3.5-5.1 [facility] Comment on above: Performed By: #### F T3, ALT, AST, BMP, TSH, LIPID #### [facility] [address] [address] [address] Reji Pickett Protein [Mass/Vol] 6.5 g/dL Normal 6.4-8.2 [facility] Comment on above: Performed By: #### F T3, ALT, AST, BMP, TSH, LIPID #### [facility] [address] [place] [address] Dr. Reji Pickett Sodium [Moles/Vol] 143 mmol/L Normal 136-145 [facility] Comment on above: Performed By: #### F T3, ALT, AST, BMP, TSH, LIPID #### [facility] [address] [place], [place] [id number] Dr. Reji Pickett Urea nitrogen [Mass/Vol] 20.0 mg/dL Critically high 7.0-18.0 [facility] Comment on above: Performed By: #### F T3, ALT, AST, BMP, TSH, LIPID #### [facility] [address] [address] [address] Reji Pickett Urea nitrogen/Creatinine [Mass ratio] 25.3 mg/mg Normal [facility] Comment on above: Performed By: #### F T3, ALT, AST, BMP, TSH, LIPID #### [facility] [address] [address] [address] Reji Pickett TROPONIN, HIGH SENSITIVITYon 07-27-2022 HSTROP 4.5 pg/mL Normal 4.0-51.3 [facility] Comment on above: Result Comment: CUT- OFF POINTS HAVE BEEN ESTABLISHED BASED ON THE FOURTH UNIVERSAL DEFINITIONS OF MYOCARDIAL INFARCTION. THE UPPER REFERENCE LIMIT (URL) OF TROPONIN, DEFINED THE 99TH PERCENTILE OF cTnI DISTRIBUTION IN A REFERENCE POPULATION, HAS BEEN CONFIRMED THE DECISION THRESHOLD FOR DC DIAGNOSIS. Performed By: #### F T3, ALT, AST, BMP, TSH, LIPID #### [facility] [address] [address] [address] CHEST WO CONon 10-31-2021 CT CHEST WO CON EXAMINATION: CT CHES T WO CON HISTORY: Solitary nodule of lung COMPARISON: 10/28/2020, 10/23/2019 TECHNIQUE: Multi-planar CT images were created with IV contrast. Axial, Coronal, and Sagittal images. Dose reduction techniques were achieved by using automated exposure control and/or adjustment of mA and/or kV according to patient size and/or use of iterative reconstruction technique. FINDINGS: LUNGS: Stable spiculated 1.5 x 1.0 cm groundglass nodule in the right lower lobe best seen on axial image 72, stable from the exam one year ago. Additional stable scattered patchy nodular densities throughout both lungs. No new significant pulmonary nodule or mass. PLEURA: No mass, effusion, or pneumothorax. VASCULATURE: No abnormality. FRANCISCO J: No mass or adenopathy. MEDIASTINUM: No mass or adenopathy. CARDIAC: No enlargement or pericardial effusion. Mild coronary atherosclerosis. AORTA: No aneurysm or dissection. CHEST WALL: No mass or axillary adenopathy. BONES: No bone lesion or fracture. LIMITED ABDOMEN: No suspicious findings. Limited images of the upper abdomen. OTHER: Negative. IMPRESSION: Stable spiculated groundglass nodule in the right lower lobe. Stability over the course of 2 years suggests a benign process Electronically authenticated by: JIMENEZ OLIVA Date: 2021-10-31 11:54 Normal [facility] MG MAMM SCREEN 3D TACO CADon 10-31-2021 MG MAMM SCREEN 3D TACO CAD Patient: EDILMA LEONARDO Exam Date: 10/31/2021 : 1955 Gender:F Ordering : DR OLU JOHNSON . Admission #: [id number] Family : Order #: [id number] CLICK HERE TO VIEW EXAM RADIOLOGY REPORT PROCEDURE: MAMMOGRAM SCREENING 3D BILATERAL CAD COMPARISON: MG MAMM SCREEN TACO W CAD, 10/27/2019. MG MAMM SCREEN 3D TACO CAD, 10/28/2020. INDICATIONS: Screening mammography Calculator Name NCI Breast Cancer Risk Assessment Tool 5 Year Breast Cancer Risk 1.40% Lifetime Breast Cancer Risk 4.80% Personal Breast Cancer No Personal Ovarian Cancer No Treatments None Family Cancers Grandmother-maternal with throat cancer at age 60; Mother with lung cancer at age 82; Father with throat cancer at age 82. LOCATION: [facility] BREAST COMPOSITION: Heterogeneously dense,which may obscure small masses. FINDINGS: DIAGNOSTIC CATEGORY 1--NEGATIVE. NO CHANGE FROM COMPARISON ASSESSMENT. Scattered benign-appearing calcifications are present. Scattered benign-appearing lymph nodes are present. RIGHT BREAST: No significant suspicious finding. LEFT BREAST: No significant suspicious finding. RECOMMENDATIONS: ROUTINE MAMMOGRAM AND CLINICAL EVALUATION IN 12 MONTHS. PLEASE NOTE: A NORMAL MAMMOGRAM DOES NOT EXCLUDE THE POSSIBILITY OF BREAST CANCER. A CLINICALLY SUSPICIOUS PALPABLE LUMP SHOULD BE BIOPSIED. Dictated by: Jimenez Oliva MD on 10/31/2021 at 13:48 Approved by: Jimenez Oliva MD on 10/31/2021 at 13:49 Normal [facility] CBC AUTO DIFFon 10-18-2021 BASO # 0.1 103/ul Normal 0.0-0.1 [facility] Comment on above: Performed By: #### F T3, ALT, AST, BMP, TSH, LIPID #### [facility] [address] [place] [address] Dr. Reji Pickett Basophils/100 WBC (Bld) 1.2 % Normal 0.2-2.0 [facility] [facility] Comment on above: Performed By: #### F T3, ALT, AST, BMP, TSH, LIPID #### [facility] [address] [place] [address] Dr. Reji Pickett EO # 0.1 103/ul Normal 0.0-0.7 [facility] Comment on above: Performed By: #### F T3, ALT, AST, BMP, TSH, LIPID #### [facility] [address] [place] [address] Dr. Reji Pickett Eosinophils/100 WBC (Bld) 2.3 % Normal 0.9-7.0 [facility] Comment on above: Performed By: #### F T3, ALT, AST, BMP, TSH, LIPID #### [facility] [address] [place] [address] Dr. Reji Pickett Erythrocyte distribution width (RBC) [Ratio] 14.3 % Normal 11.0-15.0 [facility] Comment on above: Performed By: #### F T3, ALT, AST, BMP, TSH, LIPID #### [facility] [address] [place] [address] Dr. Reji Pickett Hematocrit (Bld) [Volume fraction] 40.6 % Normal 36.0-48.0 [facility] Comment on above: Performed By: #### F T3, ALT, AST, BMP, TSH, LIPID #### [facility] [address] [place] [address] Dr. Reji Pickett Hemoglobin (Bld) [Mass/Vol] 12.6 g/dL Normal 12.0-16.0 [facility] Comment on above: Performed By: #### F T3, ALT, AST, BMP, TSH, LIPID #### [facility] [address] [place] [address] Dr. Reji Pickett IG # 0.01 10e3/ul Normal 0.00-0.03 [facility] Comment on above: Performed By: #### F T3, ALT, AST, BMP, TSH, LIPID #### [facility] [address] [place] [address] Dr. Reji Pickett IG % 0.2 % Normal 0.0-0.5 [facility] Comment on above: Performed By: #### F T3, ALT, AST, BMP, TSH, LIPID #### [facility] [address] [place] [address] Dr. Reji Pickett LYMPH # 2.2 103/ul Normal 1.2-3.8 [facility] Comment on above: Performed By: #### F T3, ALT, AST, BMP, TSH, LIPID #### [facility] [address] [place] [address] Dr. Reji Pickett Lymphocytes/100 WBC (Bld) 39.1 % Normal 20.5-60.0 [facility] Comment on above: Performed By: #### F T3, ALT, AST, BMP, TSH, LIPID #### [facility] [address] [place] [address] Dr. Reji Pickett MANUAL DIFF REQ NO Normal [facility] Comment on above: Performed By: #### F T3, ALT, AST, BMP, TSH, LIPID #### [facility] [address] [place] [address] Dr. Reji Pickett MCH (RBC) [Entitic mass] 31.0 pg Normal 26.7-34.0 [facility] Comment on above: Performed By: #### F T3, ALT, AST, BMP, TSH, LIPID #### [facility] [address] [place] [address] Dr. Reji Pickett MCHC (RBC) [Mass/Vol] 31.0 g/dL Normal 29.9-35.2 [facility] Comment on above: Performed By: #### F T3, ALT, AST, BMP, TSH, LIPID #### [facility] [address] [place] [address] Dr. Reji Pickett MCV (RBC) [Entitic vol] 99.8 fL Critically high 81.0-99.0 [facility] Comment on above: Performed By: #### F T3, ALT, AST, BMP, TSH, LIPID #### [facility] [address] [place] [address] Dr. Reji Pickett MONO # 0.6 103/ul Normal 0.3-0.8 [facility] Comment on above: Performed By: #### F T3, ALT, AST, BMP, TSH, LIPID #### [facility] [address] [place] [address] Dr. Reji Pickett Monocytes/100 WBC (Bld) 10.5 % Normal 1.7-12.0 [facility] Comment on above: Performed By: #### F T3, ALT, AST, BMP, TSH, LIPID #### [facility] [address] [place] [address] Dr. Reji Pickett NEUT # 2.7 103/ul Normal 1.4-6.5 [facility] Comment on above: Performed By: #### F T3, ALT, AST, BMP, TSH, LIPID #### [facility] [address] [place] [address] Dr. Reji Pickett Neutrophils/100 WBC (Bld) 46.7 % Normal 43.0-75.0 [facility] Comment on above: Performed By: #### F T3, ALT, AST, BMP, TSH, LIPID #### [facility] [address] [place] [address] Dr. Reji Pickett Platelet mean volume (Bld) [Entitic vol] 11.2 fL Normal 9.5-13.5 [facility] Comment on above: Performed By: #### F T3, ALT, AST, BMP, TSH, LIPID #### [facility] [address] [place] [address] Dr. Reji Pickett PLT 242 103/ul Normal 150-450 [facility] Comment on above: Performed By: #### F T3, ALT, AST, BMP, TSH, LIPID #### [facility] [address] [place] [address] Dr. Reji Pickett RBC 4.07 106/ul Critically low 4.20-5.40 [facility] Comment on above: Performed By: #### F T3, ALT, AST, BMP, TSH, LIPID #### [facility] [address] [place] [address] Dr. Reji Pickett WBC 5.7 103/ul Normal 4.0-11.0 [facility] Comment on above: Performed By: #### F T3, ALT, AST, BMP, TSH, LIPID #### [facility] [address] [address] [address] Reji Pickett FREE T3on 10-18-2021 FREE T3 1.91 pg/mlL Critically low 2.18-3.98 [facility] Comment on above: Performed By: #### F T3, ALT, AST, BMP, TSH, LIPID #### [facility] [address] [address] [address] Reji Pickett FREE T4on 10-18-2021 Free T4 [Mass/Vol] 1.06 ng/dL Normal 0.76-1.46 [facility] Comment on above: Performed By: #### F T4 #### [facility] [address] [place] [address] Dr. Reji Pickett LIPID PROFILEon 10-18-2021 CHOL-HDL RATIO NORM SEE BELOW Normal [facility] Comment on above: Result Comment: 3.3 - 4.4 LOW RISK 4.4 - 7.1 AVERAGE RISK 7.1 - 11.0 MODERATE RISK >11.0 HIGH RISK Performed By: #### F T3, ALT, AST, BMP, TSH, LIPID #### [facility] [address] [address] [address] Reji Pickett Cholesterol [Mass/Vol] 181 mg/dL Normal <=200 [facility] Comment on above: Performed By: #### F T3, ALT, AST, BMP, TSH, LIPID #### [facility] [address] [address] [address] Reji Pickett Cholesterol in HDL [Mass/Vol] 69 mg/dL Critically high 40-60 [facility] Comment on above: Performed By: #### F T3, ALT, AST, BMP, TSH, LIPID #### [facility] [address] [address] [address] Reji Pickett Cholesterol in LDL [Mass/Vol] 97.4 mg/dL Normal [facility] Comment on above: Performed By: #### F T3, ALT, AST, BMP, TSH, LIPID #### [facility] [address] [address] [address] Reji Pickett Cholesterol.total/Chol esterol in HDL [Mass ratio] 2.6 {ratio} Normal [facility] Comment on above: Performed By: #### F T3, ALT, AST, BMP, TSH, LIPID #### [facility] [address] [address] [address] Reji Pickett HDL NORMAL > or = 60 mg/dl - LO W CARDIOVASCULAR RISK <40 mg/dl - HIGH CARDIOVASCULAR RISK Normal [facility] Comment on above: Performed By: #### F T3, ALT, AST, BMP, TSH, LIPID #### [facility] [address] [address] [address] Reji Pickett LDL CALC NORMAL SEE BELOW Normal [facility] Comment on above: Result Comment: <100 mg/dl OPTIMAL 100 - 129 mg/dl NEAR OR ABOVE OPTIMAL 130 - 159 mg/dl BORDERLINE HIGH 160 - 189 mg/dl HIGH >190 mg/dl VERY HIGH Performed By: #### F T3, ALT, AST, BMP, TSH, LIPID #### [facility] [address] [place] [address] Dr. Reji Pickett Triglyceride [Mass/Vol] 73 mg/dL Normal <=150 [facility] Comment on above: Performed By: #### F T3, ALT, AST, BMP, TSH, LIPID #### [facility] [address] [address] [address] Reji Pickett VLDL CALC 14.6 mg/dL Normal [facility] Comment on above: Performed By: #### F T3, ALT, AST, BMP, TSH, LIPID #### [facility] [address] [address] [address] Reji Pickett PROF CHEM 8 (BAS METB)on Anion gap [Moles/Vol] 14.1 mmol/L Normal [facility] Comment on above: Performed By: #### F T3, ALT, AST, BMP, TSH, LIPID #### [facility] [address] [place] [address] Dr. Reji Pickett Calcium [Mass/Vol] 9.1 mg/dL Normal 8.5-10.1 [facility] Comment on above: Performed By: #### F T3, ALT, AST, BMP, TSH, LIPID #### [facility] [address] [address] [address] Reji Pickett Chloride [Moles/Vol] 105 mmol/L Normal 98-107 [facility] Comment on above: Performed By: #### F T3, ALT, AST, BMP, TSH, LIPID #### [facility] [address] [address] [address] Reji Pickett CO2 [Moles/Vol] 27.0 mmol/L Normal 21.0-32.0 [facility] Comment on above: Performed By: #### F T3, ALT, AST, BMP, TSH, LIPID #### [facility] [address] [place] [address] Dr. Reji Pickett Creatinine [Mass/Vol] 0.78 mg/dL Normal 0.55-1.02 [facility] Comment on above: Performed By: #### F T3, ALT, AST, BMP, TSH, LIPID #### [facility] [address] [address] [address] Reji Pickett EGFR-AF TUVALUAN Normal >=60 [facility] Comment on above: Performed By: #### F T3, ALT, AST, BMP, TSH, LIPID #### [facility] [address] [address] [address] Reji Pickett EGFR-NON AF TUVALUAN Normal >=60 [facility] Comment on above: Performed By: #### F T3, ALT, AST, BMP, TSH, LIPID #### [facility] [address] [address] [address] Reji Pickett Glucose [Mass/Vol] 74 mg/dL Normal 74-106 [facility] Comment on above: Performed By: #### F T3, ALT, AST, BMP, TSH, LIPID #### [facility] [address] [address] [address] Reji Pickett Potassium [Moles/Vol] 4.1 mmol/L Normal 3.5-5.1 [facility] Comment on above: Performed By: #### F T3, ALT, AST, BMP, TSH, LIPID #### [facility] [address] [place] [address] Dr. Reji Pickett Sodium [Moles/Vol] 142 mmol/L Normal 136-145 [facility] Comment on above: Performed By: #### F T3, ALT, AST, BMP, TSH, LIPID #### [facility] [address] [place] [address] Dr. Reji Pickett Urea nitrogen [Mass/Vol] 15.0 mg/dL Normal 7.0-18.0 [facility] Comment on above: Performed By: #### F T3, ALT, AST, BMP, TSH, LIPID #### [facility] [address] [place] [address] Dr. Reji Pickett Urea nitrogen/Creatinine [Mass ratio] 19.2 mg/mg Normal [facility] Comment on above: Performed By: #### F T3, ALT, AST, BMP, TSH, LIPID #### [facility] [address] [place] [address] Dr. Reji Pickett SGOToanastasia 10-18-2021 AST [Catalytic activity/Vol] 33 U/L Normal 15-37 [facility] Comment on above: Performed By: #### F T3, ALT, AST, BMP, TSH, LIPID #### [facility] [address] [place] [address] Dr. Reji Pickett SGPTon 10-18-2021 ALT [Catalytic activity/Vol] 59 U/L Normal 14-59 [facility] Comment on above: Performed By: #### F T3, ALT, AST, BMP, TSH, LIPID #### [facility] [address] [place] [address] Dr. Reji Pickett TSHon 10-18-2021 TSH 1.079 uIU/mL Normal 0.358-3.740 [facility] Comment on above: Performed By: #### F T3, ALT, AST, BMP, TSH, LIPID #### [facility] [address] [place] [address] Dr. Reji Pickett TSH RANGE SEE BELOW Normal [facility] Comment on above: Result Comment: <0.3 4 UIU/ml HYPERTHYROID 0.34-5.60 UIU/ml EUTHYROID >5.60 UIU/ml HYPOTHYROID Performed By: #### F T3, ALT, AST, BMP, TSH, LIPID #### [facility] [address] [address] [address] Reji Pickett Vital Signs Date Time Vital Sign Value Performing Clinician Faci lity 04-25-2023 21:50-0500 Body temperature 97.5 [degF] SEED TR[employer]ER Candelaria Saffle Work Phone: [facility] 04-25-2023 21:50-0500 Diastolic blood pressure 71 mm[Hg] SEED TR[employer]ER Candelaria Saffle Work Phone: [facility] 04-25-2023 21:50-0500 Heart rate 59 /min SE[employer] TR[employer]ER Candelaria Snellfle Work Phone: [facility] 04-25-2023 21:50-0500 Respiratory rate 20 /min SEED TR[employer]ER Candelaria Saffle Work Phone: [facility] 04-25-2023 21:50-0500 SaO2% (BldA) [Mass fraction] 95 % SE[employer] TR[employer]ER Candelaria Saffle Work Phone: [facility] 04-25-2023 21:50-0500 Systolic blood pressure 134 mm[Hg] SEED TR[employer]ER Candelaria Saffle Work Phone: [facility] 04-25-2023 17:23-0500 Body height 162.56 cm SEED TR[employer]ER Candelaria Snellfle Work Phone: [facility] 04-25-2023 17:23-0500 Body weight 63.4 kg SEED TR[employer]ER Candelaria Snellfle Work Phone: [facility] Encounters Encounter Date Encounter Type Care Provider Facility Start: 04-25-2023 End: 04-26-2023 Emergency department patient visit Candelaria Merlos Milagromartha Facility:[facility] Start: 04-25-2023 End: 04-25-2023 Emergency department patient visit CECILY Falk Work Phone: [facility] Work Phone: Start: 07-27-2022 End: 07-27-[address] OLU JOHNSON Facility:[facility] Start: 10-31-2021 End: 11-01-[address] OLU JOHNSON Facility:[facility] Start: 10-18-2021 End: 10-19-[address] OLU JOHNSON Facility:[facility] Procedures Date Procedure Procedure Detail Performing Clinician Start: 04-25-2023 CT of head without contrast CECILY Falk Work Phone: Start: 04-25-2023 Plain chest X-ray CECILY Falk Work Phone: Start: 04-25-2023 SARS-CoV-2, Influenz a & RSV (PCR) SEED TRUCKERAnastasia Falk Work Phone: Plan of Treatment Date Care Activity Detail Author Patient Education Radiculopathy [facility] Work Phone: Patient referral [facility] Work Phone: Payers Date Payer Category Payer Self-pay 1960 Medicare [id number] 1960 Private Health Insurance CLI [id number] 1955 Unknown [id number] 1955 Unknown [id number] 1954 Unknown [id number] Unknown [employer] [id number] Unknown [id number] Social History Date Type Detail Facility Start: 04-25-2023 Tobacco smoking stat us NHIS Ex-smoker (finding) [facility] Start: 1955 Sex Assigned At Female F [facility] Evaluation note Note Date & Type Note Facility Evaluation note No assessment information availa ble [facility] Work Phone: Hospital Discharge instructions Note Date & Type Note Facility Hospital Discharge instructions Additional Instructions Take steroids as directed Apply ice for the next 24 hours and rotate heat You can take your Flexeril at home if needed for muscle spasms Follow-up with your PCP regarding your chest pain and radiculopathy for further evaluation Take Naprosyn or Tylenol if needed for pain Return here if you have any increased numbness, tingling, fevers, chills, unsteady gait or any other concerns [facility] Work Phone: Summary Purpose Family History No Family History Records FoundNo Family History Records Found Advance Directives No Advanced Directives Records Found Advance Directive Response Recorded Date/ Time Advance Directives No April 6:19pm Chief Complaint and Reason for Visit Chief Complaint lt arm numb Additional Source Comments INFORMATION SOURCE (unrecogn ized section and content) DATE CREATED AUTHOR 07/31/2022 [facility] DATE CREATED AUTHOR AUTHOR'S ORGANIZ ATION 05/03/2023 [facility] Care Teams (unrecognized sec tion and content) Team Status: Active Member Role Status Dates Olu Johnson MD Primary Care Provider Active Team Status: Inactive Member Role Status Dates Candelaria Falk APRN Emergency Provider Active Olu Johnson MD Primary Care Provider Active Goals (unrecognized section and content) Goals may be documented in a n alternate section FOR RECORDS PERTAINING TO PATIENTS WHO ARE OR HAVE BEEN ENROLLED IN A CHEMICAL DEPENDENCY/SUBSTANCEABUSE PROGRAM, SOME INFORMATION MAY BE OMITTED. This clinical summary was aggregated from multiple sources. Caution should be exercised in using it in the provision of clinical care. This summary normalizes information from multiple sources, and as a consequence, information in this document may materially change the coding, format and clinical context of patient data. In addition, data may be omitted in some cases. CLINICAL DECISIONS SHOULD BE BASED ON THE PRIMARY CLINICAL RECORDS. [facility] [employer] [facility]. provides no warranty or guarantee of the accuracy or completeness of information in this document.
[2023-05-22 07:41] LABS: Basophils Absolute Auto 0.1 10^3/uL (0.0-0.1); Basophils Percent Auto 1.5 % (0.2-2.0); Eosinophils Absolute Auto 0.2 10^3/uL (0.0-0.7); Eosinophils Percent Auto 3.7 % (0.9-7.0); Hematocrit 41.3 % (36.0-48.0); Hemoglobin 13.5 g/dL (12.0-16.0); Immature Granulocytes Abs Auto 0.02 10^3/uL (0.00-0.03); Immature Granulocytes Pct Auto 0.4 % (0.0-0.5); Lymphocytes Percent Auto 37.6 % (20.5-60.0); Mean Corpuscular HGB Conc 32.7 g/dL (29.9-35.2); Mean Corpuscular Hemoglobin 31.3 pg (26.7-34.0); Mean Corpuscular Volume 95.6 fL (81.0-99.0); Monocytes Absolute Auto 0.6 10^3/uL (0.3-0.8); Monocytes Percent Auto 10.2 % (1.7-12.0); Neutrophils Absolute Auto 2.5 10^3/uL (1.4-6.5); Neutrophils Percent Auto 46.6 % (43.0-75.0); Platelet Count 275 10^3/uL (150-450); Red Blood Count 4.32 10^6/uL (4.20-5.40); Red Cell Distribution Width 12.7 % (11.0-15.0); White Blood Count 5.4 10^3/uL (4.0-11.0)
[2023-05-22 07:49] LABS: Bilirubin Urine NEGATIVE (NEGATIVE); Blood Urine NEGATIVE (NEGATIVE); Clarity Urine CLEAR (CLEAR); Color Urine LT. YELLOW (YELLOW); Glucose Urine UA NEGATIVE (NEGATIVE); Ketones Urine NEGATIVE (NEGATIVE); Leukocyte Esterase Urine NEGATIVE (NEGATIVE); Nitrite Urine NEGATIVE (NEGATIVE); Protein Urine NEGATIVE (NEG/TRACE); Urobilinogen Urine 0.2 EU/dL (0.2-1.0)
[2023-05-22 07:54] LABS: Urine Microscopic Indicated NO
[2023-05-22 08:28] LABS: Alanine Aminotransferase 35 U/L (14-59); Albumin Globulin Ratio 1.1; Albumin Level 3.8 g/dL (3.4-5.0); Alkaline Phosphatase 70 U/L (46-116); Aspartate Amino Transferase 21 U/L (15-37); BUN Creatinine Ratio 28.9; Bilirubin Total 0.6 mg/dL (0.2-1.0); Calcium 9.7 mg/dL (8.5-10.1); Carbon Dioxide 31.1 mmol/L (21.0-32.0); Chloride 102 mmol/L (98-107); Cholesterol 231 mg/dL (<=200); Estimated GFR (African America >60 (>=60); Estimated GFR (Non-African Ame >60 (>=60); Globulin 3.6 g/dL; Glucose 93 mg/dL (74-106); HDL Cholesterol 78 mg/dL (40-60); Potassium 4.1 mmol/L (3.5-5.1); Sodium 140 mmol/L (136-145); TSH W/ REFLEX FT4 1.713 uIU/mL (0.358-3.740); Total Protein 7.4 g/dL (6.4-8.2); Triglycerides 77 mg/dL (<=150); VLDL CHOLESTEROL 15.4 mg/dL
== END 2023-05-22 06:50 | disposition home or self-care (01) ==
LOC: MAMMO 06:50
PROVIDERS: PCP Family Medicine; Visit Provider Nurse Practitioner
DX: E78.2 Mixed hyperlipidemia (principal); E03.9 Hypothyroidism, unspecified; I10 Essential (primary) hypertension; Z12.31 Encounter for screening mammogram for malignant neoplasm of breast; Z80.1 Family history of malignant neoplasm of trachea, bronchus and lung; Z80.8 Family history of malignant neoplasm of other organs or systems
CPT/HCPCS: 36415; 77063; 77067; 80053; 80061; 81003; 84443; 85025

== ENCOUNTER 2023-06-25 09:46 | Outpatient (OUT) | payer MEDICARE, SELFPAY ==
--- OUTSIDE RECORDS SUMMARY | 2023-06-25 09:56 | XMS_ITS | CCD ---
Author Name Unknown Address [id number] [place] [address] Organization [facility] Care Team Providers Care Supervisor Refractory Products Name Role Phone ELIZABETH, DR OLU Martinez [...] Unavailable NADERER, DR OLU Martinez Referring Unavailable RAYNESFORD, DR JIMEENZ Hernandez Consulting Unavailable NADERER, DR OLU Martinez Attending Unavailable NADERER, DR OLU Martinez Consulting Unavailable CECILY Falk Emergency Provider [phone] MD Olu Johnson Primary Care Provider Candelaria Falk Attending Unavailable Candelaria Falk Admitting Unavailable Elizabeth, Olu Primary Care Unavailable Chloe DYED YARN OPERATOR, Laure Unavailable Olu Johnson MD Primary Care Provider Allergies Allergy Classification Reported Allergen(s) Allergy Type Date of Onset Reaction(s) Facility (1 source) Cephalexin Drug Allergy 07-28-19 [facility] Repository (1 source) Ciprofloxacin Drug Allergy 07-28-19 [facility] (1 source) Penicillin Drug Allergy 07-28-19 [facility] Rep[facility] (5 sources) Cephalexin; Translations: [cephalexin] Drug Allergy 11-11-19 Dizziness, Rash [facility] (2 sources) Ciprofloxacin; Translations: [ciprofloxacin] Drug Allergy 12-14-20 23 Gastrointestinal Upset [facility] (5 sources) Penicillins; Translations: [Penicillins] Allergy to substance 04-25-20 23 Rash [facility] (3 sources) Naproxen Drug Allergy 05-20-19 24 Swelling, Rash [facility] Medications Current Medications Medication Drug Class(es) Dates Sig (Normalized) Sig (Original) amLODIPine 5 mg oral tablet (2 sources) Dihydropyridine Calcium Channel [place] Start: 06-18-2023 End: 07-18-2023 take 1 tablet by mouth in the morning amLODIPine (Norvasc) 5 MG tablet Indications: Primary hypertension (CMS/HCC) Take 1 tablet (5 mg) by mouth in the morning. 30 tablet 1 06/18/2023 07/18/2023 Active levothyroxine sodium 0.025 mg oral tablet (4 sources) l-Thyroxine Start: 04-25-2023 Levothyroxine Active MCG TABLET April 25, 2023 12:00am Start: 02-08-2023 take 1 tablet by maria a th in the morning levothyroxine (Synthroid, Levoxyl) 25 MCG tablet Take 25 mcg by mouth in the morning. 0 02/08/2023 Active lisinopril 20 mg oral tablet (4 sources) Angiotensin Converting Enzyme Inhibitor Start: 06-18-2023 End: 09-16-2023 take 1 tablet by mouth in the morning, then take 1 tablet by mouth twice daily at bedtime lisinopril 20 MG tablet Indications: Primary hypertension (CMS/HCC) Take 1 tablet (20 mg) by mouth in the morning and 1 tablet (20 mg) before bedtime. Twice a day. 180 tablet 1 06/18/2023 09/16/2023 Active Start: 05-01-2023 lisinopril 20 MG tablet Indications: Primary hypertension (CMS/HCC) Twice a day 60 tablet 1 05/01/2023 Active Start: 04-25-2023 Lisinopril Act reed MG TABLET April 25, 2023 12:00am naproxen 500 mg oral tablet (1 source) Nonsteroidal Anti-inflammatory Drug Start: 04-25-2023 take 500 mg by mouth twice daily Naproxen Active 500 MG PO Twice daily April 25, 2023 12:00am predniSONE 20 mg oral tablet (1 source) Start: 04-25-2023 take 40 mg by mouth once daily Prednisone Active 40 MG PO Daily 6 3 April 25, 2023 12:00am simvastatin 40 mg oral tablet (4 sources) HMG-CoA Reductase Inhibitor Start: 04-25-2023 Simvastatin Active MG TABLET April 25, 2023 12:00am Start: 02-08-2023 take 1 tablet by maria a th at bedtime simvastatin (Zocor) 40 MG tablet Take 40 mg by mouth at bedtime 0 02/08/2023 Active Problems Active Problems Problem Classification Problem Date Documented Da te Episodic/Chronic Disorders of lipid metabolism (5 sources) Pure hypercholesterolemi a, unspecified; Translations: [Hyperlipidemia, unspecified] Onset: 03-19-2019 05-01-2023 Chronic Essential hypertension (10 sources) Essential (primary) hypertension; Translations: [Hypertensive disorder] Onset: 03-19-2019 Chronic Headache; including migraine (1 source) Headache; including migraine; Translations: [HEADACHE UNSPECIFIED] Onset: 07-31-2022 Nausea and vomiting (4 sources) Nausea with vomiting, unspecified; Translations: [NAUSEA WITH VOMITING UNSPECIFIED] Onset: 07-27-2022 Episodic Nonspecific chest pain (2 sources) Chest pain; Translations: [Chest pain, unspecified] Onset: 04-25-2023 04-25-2023 Episodic Other aftercare (1 source) Other nursing home (current) drug therapy; Translations: [OTH MANAGER IN HOME CURRENT DRUG THERAPY] Onset: 07-31-2022 Episodic Other connective tissue disease (5 sources) Lateral epicondylitis of left humerus; Translations: [Lateral epicondylitis, left elbow] Onset: 05-01-2023 06-13-2023 Episodic Other gastrointestinal disorders (1 source) Diarrhea, unspecified; Translations: [DIARRHEA UNSPECIFIED] Onset: 07-31-2022 Episodic Other nutritional; endocrine; and metabolic disorders (2 sources) Overweight in adulthood with body mass index of 25 or more but less than 30; Translations: [Body mass index (BMI) 25.0-25.9, adult] Onset: 06-17-2023 06-17-2023 Episodic Other screening for suspected conditions (not mental disorders or infectious disease) (4 sources) Encounter for screening mammogram for malignant neoplasm of breast; Translations: [Patient encounter status] Onset: 11-02-2021 05-20-2023 Episodic Screening and history of mental health and substance abuse codes (1 source) Personal history of nicotine dependence; Translations: [PERSONAL HISTORY OF NICOTINE DEPEND] Onset: 07-31-2022 Episodic Spondylosis; intervertebral disc disorders; other back problems (6 sources) Nerve root disorder; Translations: [Radiculopathy, site unspecified] Onset: 05-01-2023 04-25-2023 Episodic Thyroid disorders (4 sources) Hypothyroidism, unspecified; Translations: [Hypothyroidism] Onset: 03-19-2019 05-01-2023 Chronic Past or Other Problems Problem Classification Problem Date Documented Da te Episodic/Chronic Mood disorders (2 sources) Mood disorders Onset: 06-17-2023 06-17-2023 Other lower respiratory disease (4 sources) Solitary pulmonary nodule; Translations: [SOLITARY PULMONARY NODULE] Onset: 10-31-2021 Episodic Residual codes; unclassified (1 source) Family [...] aPTT Coag (PPP) [Time] 27.5 s 25.1-36.5 [facility] Comment on above: A hematocrit value g reater than 55% may lead to inaccurate results in coagulation testing. Patients having hematocrit values >55% require a special collection tube for coagulation studies. Please contact the laboratory at [phone] for redraw instructions. B-Type Natriuretic Peptideon 04-25-2023 Natriuretic peptide B (Bld) [Mass/Vol] 44.0 pg/mL Normal 5-100 [facility] Comment on above: Result Comment: PERF ORMED BY: [facility] [address] [place] [address] PATHOLOGIST WATER MECHANIC YUSRA WHITE M.D. Performed By: #### P TT, BMP, CBC, HS TROP, PT, BNP #### [address] Basic Metabolic Panelon 04-12 Anion gap [Moles/Vol] 12.1 mmol/L Normal 6.0-15.0 [facility] Comment on above: Performed By: #### P TT, BMP, CBC, HS TROP, PT, BNP #### [address] Calcium [Mass/Vol] 9.5 mg/dL Normal 8.6-10.3 [facility] Comment on above: Performed By: #### P TT, BMP, CBC, HS TROP, PT, BNP #### [address] Chloride [Moles/Vol] 103 mmol/L Normal 98-107 [facility] Comment on above: Performed By: #### P TT, BMP, CBC, HS TROP, PT, BNP #### [address] CO2 [Moles/Vol] 27.0 mmol/L Normal 21.0-31.0 [facility] Comment on above: Performed By: #### P TT, BMP, CBC, HS TROP, PT, BNP #### [address] Creatinine [Mass/Vol] 0.81 mg/dL Normal 0.60-1.20 [facility] Comment on above: Performed By: #### P TT, BMP, CBC, HS TROP, PT, BNP #### [address] Creatinine Clr Calc Pharmacy 57.40 Normal [facility] Comment on above: Result Comment: PERF ORMED BY: [place] [address] PATHOLOGIST WATER MECHANIC YUSRA WHITE M.D. Performed By: #### P TT, BMP, CBC, HS TROP, PT, BNP #### [place] [address] [place] GFR/1.73 sq M.predicted MDRD (S/P/Bld) [Vol rate/Area] mL/min/{1.73_m2} Normal [facility] Comment on above: Performed By: #### P TT, BMP, CBC, HS TROP, PT, BNP #### [facility] [address] Glucose [Mass/Vol] 87 mg/dL Normal 70-100 [facility] Comment on above: Result Comment: [facility] Glucose Reference Range is dependent on time and content of last meal. Glucose of more than 200 mg/dL in a nonstressed, ambulatory subject supports the diagnosis of Diabetes Mellitus. ADA recommended reference range Performed By: #### P TT, BMP, CBC, HS TROP, PT, BNP #### [facility] [address] Potassium [Moles/Vol] 4.1 mmol/L Normal 3.5-5.1 [facility] Comment on above: Performed By: #### P TT, BMP, CBC, HS TROP, PT, BNP #### [facility] [address] [place] [address] [place] Sodium [Moles/Vol] 138 mmol/L Normal 136-145 [facility] Comment on above: Performed By: #### P TT, BMP, CBC, HS TROP, PT, BNP #### [facility] [address] [place] [address] [place] Urea nitrogen [Mass/Vol] 17 mg/dL Normal 7-25 [facility] Comment on above: Performed By: #### P TT, BMP, CBC, HS TROP, PT, BNP #### [facility] [address] [place] [address] [place] Basophils Auto (Bld) [#/Vol] Ordered By: Candelaria Falk on 04-25-2023 Basophils (Bld) [#/Vol] 0.0 10*3/uL 0.0-0.2 [facility] Basophils/100 WBC Auto (Bld) Ordered By: Candelaria Falk on 04-25-2023 Basophils/100 WBC (Bld) 0.3 % . [facility] COVID CepheidOrdered By: Carie Falk on 04-25-2023 SARS-CoV-2 (COVID-19) Ab IA Ql Negative Negative [facility] Comment on above: This is a duplicate Cepheid Xpert Xpress CoV-2/Flu/RSV Plus RNA by RT-PCR result to be used for statistical tracking purpose only. SARS-CoV-2 (COVID-19) RNA CASSIDY+probe Ql (Unsp spec) [facility] COVID-19 / Flu A/B / RSV PCR [...] or Cepheid Disclaimer revoked sooner. PERFORMED BY: [place] [address] PATHOLOGIST WATER MECHANIC YUSRA WHITE M.D. [facility] Comment on above: Performed By: #### C EPHEID NEG, COVID19 FLU RSV #### [address] head/brain wo conon 04-25 CT head/brain wo con [facility] Main [place] [address] [place] [address] CT Scan Report Signed Patient: Edilma Leonardo MR#: [id number] : 1955 Acct:[id number] Age/Sex: 67 / F ADM Date: 04/25/23 Loc: ER Room: Type: [facility] ER Attending Dr: Copies to: Candelaria Falk [...] Lamin Park M.D.04/25/2023 9:04 PM Dictation Location: [place] [address] Transcribed By: [facility] 04/25/232103 Dictated By: Lamin Park II, MD 04/25/232101 Signed By: 04/25/232103 Normal [facility] Calcium [Mass/volume] in Ser um or PlasmaOrdered By: Candelariafortunato Falk on 04-25-2023 Calcium [Mass/Vol] 9.5 mg/dL 8.6-10.3 [facility] Carbon dioxide, total [Moles /volume] in Serum or PlasmaOrdered By: Candelaria Falk on 04-25-2023 CO2 [Moles/Vol] 27.0 mmol/L 21.0-31.0 [facility] Cepheid COVID PCR Negativeon 04-25-2023 SARS-CoV-2 (COVID-19) RNA CASSIDY+probe Ql (Unsp spec) Negative Normal Negative [facility] Comment on above: Result Comment: This is a duplicate CepCentrifyid Xpert Xpress CoV-2/Flu/RSV Plus RNA by RT-PCR result to be used for statistical tracking purpose only. PERFORMED BY: [place] [address] PATHOLOGIST WATER MECHANIC YUSRA WHITE M.D. Performed By: #### C EPHEID NEG, COVID19 FLU RSV #### [address] Chloride [Moles/volume] in S pawel or PlasmaOrdered By: Candelaria Falk on 04-25-2023 Chloride [Moles/Vol] 103 mmol/L 98-107 [facility] Complete Blood Count Auto Di ffon 04-25-2023 Basophils (Bld) [#/Vol] 0.0 10*3/uL Normal 0.0-0.2 [facility] Comment on above: Result Comment: PERF ORMED BY: [place] [address] PATHOLOGIST WATER MECHANIC YUSRA WHITE M.D. Performed By: #### P TT, BMP, CBC, HS TROP, PT, BNP #### [address] Basophils/100 WBC (Bld) 0.3 % Normal . [facility] Comment on above: Performed By: #### P TT, BMP, CBC, HS TROP, PT, BNP #### [address] Eosinophils (Bld) [#/Vol] 0.2 10*3/uL Normal 0.0-0.45 [facility] Comment on above: Performed By: #### P TT, BMP, CBC, HS TROP, PT, BNP #### [address] Eosinophils/100 WBC (Bld) 2.6 % Normal . [facility] Comment on above: Performed By: #### P TT, BMP, CBC, HS TROP, PT, BNP #### [address] Erythrocyte distribution width (RBC) [Ratio] 13.5 % Normal 11.9-15.3 [facility] Comment on above: Performed By: #### P TT, BMP, CBC, HS TROP, PT, BNP #### [address] Hematocrit (Bld) [Volume fraction] 42.5 % Normal 34.0-46.4 [facility] Comment on above: Performed By: #### P TT, BMP, CBC, HS TROP, PT, BNP #### [address] Hemoglobin (Bld) [Mass/Vol] 14.4 g/dL Normal 11.8-15.4 [facility] Comment on above: Performed By: #### P TT, BMP, CBC, HS TROP, PT, BNP #### [place] [address] [place] Lymphocytes (Bld) [#/Vol] 2.9 10*3/uL Normal 1.00-4.8 [facility] Comment on above: Performed By: #### P TT, BMP, CBC, HS TROP, PT, BNP #### [address] Lymphocytes/100 WBC (Bld) 40.1 % Normal . [facility] Comment on above: Performed By: #### P TT, BMP, CBC, HS TROP, PT, BNP #### [address] MCH (RBC) [Entitic mass] 31.9 pg Normal 24.7-34.3 [facility] Comment on above: Performed By: #### P TT, BMP, CBC, HS TROP, PT, BNP #### [address] MCV (RBC) [Entitic vol] 93.8 fL Normal 80-100 [facility] Comment on above: Performed By: #### P TT, BMP, CBC, HS TROP, PT, BNP #### [address] Mean Corpuscular HGB Conc 34.0 g/dL Normal 32.0-35.0 [facility] Comment on above: Performed By: #### P TT, BMP, CBC, HS TROP, PT, BNP #### [address] Monocytes (Bld) [#/Vol] 0.6 10*3/uL Normal 0.0-0.8 [facility] Comment on above: Performed By: #### P TT, BMP, CBC, HS TROP, PT, BNP #### [address] Monocytes/100 WBC (Bld) 20.21 % High 0.00-20.00 [facility] Comment on above: Result Comment: For adults in ED, MDW > 20.0 may be associated with a higher risk of sepsis during the first 12 hrs of hospital admission Performed By: #### P TT, BMP, CBC, HS TROP, PT, BNP #### [address] Monocytes/100 WBC (Bld) 7.9 % Normal . [facility] Comment on above: Performed By: #### P TT, BMP, CBC, HS TROP, PT, BNP #### [address] Neutrophils (Bld) [#/Vol] 3.5 10*3/uL Normal 1.8-7.7 [facility] Comment on above: Performed By: #### P TT, BMP, CBC, HS TROP, PT, BNP #### [address] Neutrophils/100 WBC (Bld) 49.1 % Normal . [facility] Comment on above: Performed By: #### P TT, BMP, CBC, HS TROP, PT, BNP #### [address] NRBC% 0.0 /100{WBC} Normal 0-0.5 [facility] Comment on above: Performed By: #### P TT, BMP, CBC, HS TROP, PT, BNP #### [address] Platelet mean volume (Bld) [Entitic vol] 8.1 fL Normal 6.3-10.7 [facility] Comment on above: Performed By: #### P TT, BMP, CBC, HS TROP, PT, BNP #### [address] Platelets (Bld) [#/Vol] 247 10*3/uL Normal 150-450 [facility] Comment on above: Performed By: #### P TT, BMP, CBC, HS TROP, PT, BNP #### [address] RBC (Bld) [#/Vol] 4.53 10*6/uL Normal 3.60-5.00 [facility] Comment on above: Performed By: #### P TT, BMP, CBC, HS TROP, PT, BNP #### [facility] [address] [place] [address] [place] WBC (Bld) [#/Vol] 7.2 10*3/uL Normal 3.8-11.6 [facility] Comment on above: Performed By: #### P TT, BMP, CBC, HS TROP, PT, BNP #### [facility] [address] Creatinine [Mass/volume] in Serum or PlasmaOrdered By: Candelaria Falk on 04-25-2023 Creatinine [Mass/Vol] 0.81 mg/dL 0.60-1.20 [facility] ECG 12 lead ECGon 04-25-2023 ECG 12 lead ECG [facility] Main [place] [address] [place] [address] Electrocardiograph Report Signed Patient: Edilma Leonardo MR#: [id number] : 1955 Acct:[id number] Age/Sex: 67 / F ADM Date: 04/25/23 [...] ms Normal sinus rhythm Confirmed by Santiago BLAKE DO ([id number]) on 04/25/2023 6:14:25 PM Referred By: Electronically Signed By:Santiago BLAKE DO Transcribed By: MUS Signed By Santiago Blake DO 1 06/26/221813 Normal [facility] Eosinophils Auto (Bld) [#/Vo l]Ordered By: Candelaria Falk on 04-25-2023 Eosinophils (Bld) [#/Vol] 0.2 10*3/uL 0.0-0.45 [facility] Eosinophils/100 WBC Auto (Bl d)Ordered By: Candelaria Falk on 04-25-2023 Eosinophils/100 WBC (Bld) 2.6 % . [facility] Erythrocyte distribution wid th Auto (RBC) [Ratio]Ordered By: Candelaria Falk on 04-25-2023 Erythrocyte distribution width (RBC) [Ratio] 13.5 % 11.9-15.3 [facility] Glucose [Mass/volume] in Ser um or PlasmaOrdered By: Candelaria Falk on 04-25-2023 Glucose [Mass/Vol] 87 mg/dL 70-100 [facility] Comment on above: ADA recommended refe rence rangeRandom Glucose Reference Range is dependent on time and content of last meal. Glucose of more than 200 mg/dL in a nonstressed, ambulatory subject supports the diagnosis of Diabetes Mellitus. Hematocrit Auto (Bld) [Volum e fraction]Ordered By: Candelaria Falk on 04-25-2023 Hematocrit (Bld) [Volume fraction] 42.5 % 34.0-46.4 [facility] Hemoglobin [Mass/volume] in BloodOrdered By: Candelaria Falk on 04-25-2023 Hemoglobin (Bld) [Mass/Vol] 14.4 g/dL 11.8-15.4 [facility] INR in Platelet poor plasma by Coagulation assayOrdered By: Candelaria Falk on 04-25-2023 INR Coag (PPP) [Relative time] 1.0 {INR} [facility] Comment on above: INR Therapeutic Rang e [...] RBC Auto (Bld) [#/Vol] 7.2 10*3/uL 3.8-11.6 [facility] Lymphocytes Auto (Bld) [#/Vo l]Ordered By: Candelaria Falk on 04-25-2023 Lymphocytes (Bld) [#/Vol] 2.9 10*3/uL 1.00-4.8 [facility] Lymphocytes/100 WBC Auto (Bl d)Ordered By: Candelaria Falk on 04-25-2023 Lymphocytes/100 WBC (Bld) 40.1 % . [facility] MCH Auto (RBC) [Entitic mass ]Ordered By: Candelaria Falk on 04-25-2023 MCH (RBC) [Entitic mass] 31.9 pg 24.7-34.3 [facility] MCHC Auto (RBC) [Mass/Vol]Or dered By: Candelaria Falk on 04-25-2023 MCHC (RBC) [Mass/Vol] 34.0 g/dL 32.0-35.0 [facility] MCV Auto (RBC) [Entitic vol] Ordered By: Candelaria Falk on 04-25-2023 MCV (RBC) [Entitic vol] 93.8 fL 80-100 [facility] Monocyte distribution width [Entitic volume] in Blood by AutomatedOrdered By: Candelaria Falk on 04-25-2023 Monocyte distribution width Auto (Bld) [Entitic vol] 20.21 % 0.00-20.00 [facility] Comment on above: For adults in ED, MD W > 20.0 may be associated with a higher risk of sepsis during the first 12 hrs of hospital admission Monocytes Auto (Bld) [#/Vol] Ordered By: Candelaria Falk on 04-25-2023 Monocytes (Bld) [#/Vol] 0.6 10*3/uL 0.0-0.8 [facility] Monocytes/100 WBC Auto (Bld) Ordered By: Candelaria Falk on 04-25-2023 Monocytes/100 WBC (Bld) 7.9 % . [facility] Natriuretic peptide B [Mass/ Vol]Ordered By: Candelaria Falk on 04-25-2023 Natriuretic peptide B (Bld) [Mass/Vol] 44.0 pg/mL 5-100 [facility] Neutrophils Auto (Bld) [#/Vo l]Ordered By: Candelaria Falk on 04-25-2023 Neutrophils (Bld) [#/Vol] 3.5 10*3/uL 1.8-7.7 [facility] Neutrophils/100 WBC Auto (Bl d)Ordered By: Candelaria Falk on 04-25-2023 Neutrophils/100 WBC (Bld) 49.1 % . [facility] No Panel InformationOrdered By: Candelaria Falk on 04-25-2023 Estimated GFR (CKD-EPI) > 60.0 mL/Min [facility] Pharmacy Creatinine Clearance (Chem 57.40 [facility] Nucleated erythrocytes [Pres ence] in Blood by Automated countOrdered By: Candelaria Falk on 04-25-2023 Nucleated RBC Auto Ql (Bld) 0.0 /100{WBC} 0-0.5 [facility] Partial Thromboplastin Timeo n 04-25-2023 aPTT Coag (Bld) [Time] 27.5 s Normal 25.1-36.5 [facility] Comment on above: Result Comment: A he matocrit value greater than 55% may lead to inaccurate results in coagulation testing. Patients having hematocrit values >55% require a special collection tube for coagulation studies. Please contact the laboratory at [phone] for redraw instructions. PERFORMED BY: [place] [address] PATHOLOGIST WATER MECHANIC YUSRA WHITE M.D. Performed By: #### H S TROP #### [address] Platelet mean volume Auto (B ld) [Entitic vol]Ordered By: Candelaria Falk on 04-25-2023 Platelet mean volume (Bld) [Entitic vol] 8.1 fL 6.3-10.7 [facility] Platelets Auto (Bld) [#/Vol] Ordered By: Candelaria Falk on 04-25-2023 Platelets (Bld) [#/Vol] 247 10*3/uL 150-450 [facility] Potassium [Moles/volume] in Serum or PlasmaOrdered By: Candelaria Falk on 04-25-2023 Potassium [Moles/Vol] 4.1 mmol/L 3.5-5.1 [facility] Prothrombin Time INRon 04-25 INR Coag (PPP) [Relative time] 1.0 {INR} Normal [facility] Comment on above: Result Comment: INR Therapeutic [...] BMP, CBC, HS TROP, PT, BNP #### [facility] [address] [place] [id number] [facility] PT Coag (PPP) [Time] 11.5 s Normal 9.0-12.9 [facility] Comment on above: Result Comment: A he matocrit value greater than 55% may lead to inaccurate results in coagulation testing. Patients having hematocrit values >55% require a special collection tube for coagulation studies. Please contact the laboratory at [phone] for redraw instructions. Performed By: #### P TT, BMP, CBC, HS TROP, PT, BNP #### [facility] [address] [place] [id number] [facility] Prothrombin time (PT)Ordered By: Candelaria Falk on 04-25-2023 PT Coag (PPP) [Time] 11.5 s 9.0-12.9 [facility] Comment on above: A hematocrit value g reater than 55% may lead to inaccurate results in coagulation testing. Patients having hematocrit values >55% require a special collection tube for coagulation studies. Please contact the laboratory at [phone] for redraw instructions. RBC Auto (Bld) [#/Vol]Ordere d By: Candelaria Falk on 04-25-2023 RBC (Bld) [#/Vol] 4.53 10*6/uL 3.60-5.00 [facility] Serum or plasma anion gap de terminationOrdered By: Candelaria Falk on 04-25-2023 Anion gap [Moles/Vol] 12.1 mmol/L 6.0-15.0 [facility] Sodium [Moles/volume] in Ser um or PlasmaOrdered By: Candelaria Falk on 04-25-2023 Sodium [Moles/Vol] 138 mmol/L 136-145 [facility] Troponin I High Sensitivityo n 04-25-2023 Troponin I High Sensitivity 3.8 pg/mL Normal 0.0-15.0 [facility] Comment on above: Result Comment: PERF ORMED BY: [place] [address] PATHOLOGIST WATER MECHANIC YUSRA WHITE M.D. Performed By: #### H S TROP #### [address] Troponin I High Sensitivity 3.9 pg/mL Normal 0.0-15.0 [facility] Comment on above: Result Comment: PERF ORMED BY: [place] [address] PATHOLOGIST WATER MECHANIC YUSRA WHITE M.D. Performed By: #### P TT, BMP, CBC, HS TROP, PT, BNP #### [facility] [address] [place] [id number] [facility] Troponin I.cardiac [Mass/vol ume] in Serum or Plasma by Detection limit <= 0.01 ng/Ordered By: Candelaria Falk on 04-25-2023 Troponin I.cardiac DL <= 0.01 ng/mL [Mass/Vol] 3.8 pg/mL 0.0-15.0 [facility] Urea nitrogen [Mass/volume] in Serum or PlasmaOrdered By: Candelaria Falk on 04-25-2023 Urea nitrogen [Mass/Vol] 17 mg/dL 7-25 [facility] WBC Auto (Bld) [#/Vol]Ordere d By: Candelaria Falk on 04-25-2023 WBC (Bld) [#/Vol] 7.2 10*3/uL 3.8-11.6 [facility] XR chest 2V*on 04-25-2023 XR chest 2V* [facility] Main [place] [address] [place] [id number] XRay Report Signed Patient: Edilma Leonardo MR#: [id number] : 1955 Acct:[id number] Age/Sex: 67 / F ADM Date: 04/25/23 Loc: ER Room: Type: [facility] ER Attending Dr: Copies to: Candelaria Falk [...] Lamin Park M.D.04/25/2023 6:34 PM Dictation Location: [place] [address] Transcribed By: JONATHON 04/25/231833 Dictated By: Lamin Park II, MD 04/25/231832 Signed By: 04/25/231833 [facility] CBC W MANUAL DIFFon 07-28-19 ATYPICAL LYMPH # Normal [facility] Comment on above: Performed By: #### F T3, ALT, AST, BMP, TSH, LIPID #### [facility] [address] [address] [address] Reji Pickett ATYPICAL LYMPH % Normal [facility] Comment on above: Performed By: #### F T3, ALT, AST, BMP, TSH, LIPID #### [facility] [address] [address] [address] Reji Pickett BAND # Normal 0.0-0.3 [facility] Comment on above: Performed By: #### F T3, ALT, AST, BMP, TSH, LIPID #### [facility] [address] [address] [address] Reji Pickett BAND % Normal 0-5 [facility] Comment on above: Performed By: #### F T3, ALT, AST, BMP, TSH, LIPID #### [facility] [address] [address] [address] Reji Pickett BASOM # 0.00 103/ul Normal 0.00-0.10 [facility] Comment on above: Performed By: #### F T3, ALT, AST, BMP, TSH, LIPID #### [facility] [address] [place] [address] Dr. Reji Pickett BASOM % 0.0 % Critically low 0.2-2.0 [facility] Comment on above: Performed By: #### F T3, ALT, AST, BMP, TSH, LIPID #### [facility] [address] [place] [address] Dr. Reji Pickett BLAST # Normal [facility] Comment on above: Performed By: #### F T3, ALT, AST, BMP, TSH, LIPID #### [facility] [address] [place] [address] Dr. Reji Pickett BLAST % Normal [facility] Comment on above: Performed By: #### F T3, ALT, AST, BMP, TSH, LIPID #### [facility] [address] [place] [address] Dr. Reji Pickett CORRECTED WBC Normal 4.0-11.0 [facility] Comment on above: Performed By: #### F T3, ALT, AST, BMP, TSH, LIPID #### [facility] [address] [place] [address] Dr. Reji Pickett EOS # 0.10 103/ul Normal 0.00-0.70 [facility] Comment on above: Performed By: #### F T3, ALT, AST, BMP, TSH, LIPID #### [facility] [address] [place] [address] Dr. Reji Pickett EOS% 1.0 % Normal 0.9-7.0 [facility] Comment on above: Performed By: #### F T3, ALT, AST, BMP, TSH, LIPID #### [facility] [address] [place] [address] Dr. Reji Pickett HCT 41.1 % Normal 36.0-48.0 [facility] Comment on above: Performed By: #### F T3, ALT, AST, BMP, TSH, LIPID #### [facility] [address] [address] [address] Reji Pickett HGB 13.6 g/dl Normal 12.0-16.0 [facility] Comment on above: Performed By: #### F T3, ALT, AST, BMP, TSH, LIPID #### [facility] [address] [place] [address] Dr. Reji Pickett LYMPHM # 0.40 103/ul Critically low 1.20-3.80 [facility] Comment on above: Performed By: #### F T3, ALT, AST, BMP, TSH, LIPID #### [facility] [address] [place] [address] Dr. Reji Pickett LYMPHM% 4.0 % Critically low 20.5-60.0 [facility] Comment on above: Performed By: #### F T3, ALT, AST, BMP, TSH, LIPID #### [facility] [address] [place] [address] Dr. Reji Pickett MCH 31.3 pg Normal 26.7-34.0 [facility] Comment on above: Performed By: #### F T3, ALT, AST, BMP, TSH, LIPID #### [facility] [address] [place] [address] Dr. Reji Pickett MCHC 33.1 g/dl Normal 29.9-35.2 [facility] Comment on above: Performed By: #### F T3, ALT, AST, BMP, TSH, LIPID #### [facility] [address] [place] [address] Dr. Reji Pickett MCV 94.5 fL Normal 81.0-99.0 [facility] Comment on above: Performed By: #### F T3, ALT, AST, BMP, TSH, LIPID #### [facility] [address] [place] [address] Dr. Reji Pickett METAMYELOCYTE # Normal [facility] Comment on above: Performed By: #### F T3, ALT, AST, BMP, TSH, LIPID #### [facility] [address] [place] [address] Dr. Reji Pickett METAMYELOCYTE % Normal [facility] Comment on above: Performed By: #### F T3, ALT, AST, BMP, TSH, LIPID #### [facility] [address] [address] [address] Reji Pickett MONOM# 0.61 103/ul Normal 0.30-0.80 [facility] Comment on above: Performed By: #### F T3, ALT, AST, BMP, TSH, LIPID #### [facility] [address] [place] [address] Dr. Reji Pickett MONOM% 6.0 % Normal 1.7-12.0 [facility] Comment on above: Performed By: #### F T3, ALT, AST, BMP, TSH, LIPID #### [facility] [address] [place] [address] Dr. Reij Pickett MPV 9.8 fL Normal 9.5-13.5 [facility] Comment on above: Performed By: #### F T3, ALT, AST, BMP, TSH, LIPID #### [facility] [address] [place] [address] Dr. Reji Pickett MYELOCYTE # Normal [facility] Comment on above: Performed By: #### F T3, ALT, AST, BMP, TSH, LIPID #### [facility] [address] [place] [address] Dr. Reji Pickett MYELOCYTE % Normal [facility] Comment on above: Performed By: #### F T3, ALT, AST, BMP, TSH, LIPID #### [facility] [address] [place] [address] Dr. Reji Pickett NRBC Normal [facility] Comment on above: Performed By: #### F T3, ALT, AST, BMP, TSH, LIPID #### [facility] [address] [place] [address] Dr. Reji Pickett PLT 191 103/ul Normal 150-450 [facility] Comment on above: Performed By: #### F T3, ALT, AST, BMP, TSH, LIPID #### [facility] [address] [place] [address] Dr. Reji Pickett RBC 4.35 106/ul Normal 4.20-5.40 [facility] Comment on above: Performed By: #### F T3, ALT, AST, BMP, TSH, LIPID #### [facility] [address] [place] [address] Dr. Reji Pickett RDW 13.7 % Normal 11.0-15.0 [facility] Comment on above: Performed By: #### F T3, ALT, AST, BMP, TSH, LIPID #### [facility] [address] [place] [address] Dr. Reji Pickett SEG # 8.99 103/ul Critically high 1.40-6.50 [facility] Comment on above: Performed By: #### F T3, ALT, AST, BMP, TSH, LIPID #### [facility] [address] [place] [address] Dr. Reji Pickett SEG % 89.0 % Critically high 43.0-75.0 [facility] Comment on above: Performed By: #### F T3, ALT, AST, BMP, TSH, LIPID #### [facility] [address] [place] [address] Dr. Reji Pickett WBC 10.1 103/ul Normal 4.0-11.0 [facility] Comment on above: Performed By: #### F T3, ALT, AST, BMP, TSH, LIPID #### [facility] [address] [place] [address] Dr. Reji Pickett CPKon 07-27-2022 CK [Catalytic activity/Vol] 53 U/L Normal 26-192 [facility] Comment on above: Performed By: #### F T3, ALT, AST, BMP, TSH, LIPID #### [facility] [address] [place] [address] Dr. Reji Pickett ER URINE PROFILEon 3 Bilirubin Ql (U) Negative Normal NEGATIVE [facility] Comment on above: Performed By: #### E RUR #### [facility] [address] [place] [address] Dr. Reji Pickett Clarity (U) CLEAR Normal CLEAR [facility] Comment on above: Performed By: #### E RUR #### [facility] [address] [place] [address] Dr. Reji Pickett Color (U) LT. YELLOW Normal YELLOW [facility] Comment on above: Performed By: #### E RUR #### [facility] [address] [place] [address] Dr. Reji Pickett ERUAHD A micrscopic examina tion will be performed if indicated. Normal [facility] Comment on above: Performed By: #### E RUR #### [facility] [address] [place] [address] Dr. Reji Pickett Glucose Ql (U) Negative Normal NEGATIVE [facility] Comment on above: Performed By: #### E RUR #### [facility] [address] [place] [address] Dr. Reji Pickett Hemoglobin Ql (U) Negative Normal NEGATIVE [facility] Comment on above: Performed By: #### E RUR #### [facility] [address] [place] [address] Dr. Reji Pickett Ketones Ql (U) TRACE Abnormal NEGATIVE [facility] Comment on above: Performed By: #### E RUR #### [facility] [address] [place] [address] Dr. Reji Pickett LEUKOCYTES Negative Normal NEGATIVE [facility] Comment on above: Performed By: #### E RUR #### [facility] [address] [place] [address] Dr. Reji Pickett Nitrite Ql (U) Negative Normal NEGATIVE [facility] Comment on above: Performed By: #### E RUR #### [facility] [address] [place] [address] Dr. Reji Pickett pH (U) 6.0 [pH] Normal 5-9 [facility] Comment on above: Performed By: #### E RUR #### [facility] [address] [place] [address] Dr. Reji Pickett SPEC GRAVITY 1.020 Normal 1.005-<=1.0 25 [facility] Comment on above: Performed By: #### E RUR #### [facility] [address] [place] [address] Dr. Reji Pickett UA PROTEIN Negative Normal NEGATIVE/ TRACE [facility] Comment on above: Performed By: #### E RUR #### [facility] [address] [place] [address] Dr. Reji Pickett UR MICRO IND NOT INDICATED Normal [facility] Comment on above: Performed By: #### E RUR #### [facility] [address] [place] [address] Dr. Reji Pickett Urobilinogen Qn (U) 0.2 {Yamile'U}/dL Normal 0.2 - 1. 0 [facility] Comment on above: Performed By: #### E RUR #### [facility] [address] [place] [address] Dr. Reji Pickett LIPASEon 07-27-2022 Lipase [Catalytic activity/Vol] 138.0 U/L Normal 73.0-393.0 [facility] Comment on above: Performed By: #### F T3, ALT, AST, BMP, TSH, LIPID #### [facility] [address] [place] [address] Dr. Reji Pickett PROF 14(COMP METB)on 023 Albumin [Mass/Vol] 3.8 g/dL Normal 3.4-5.0 [facility] Comment on above: Performed By: #### F T3, ALT, AST, BMP, TSH, LIPID #### [facility] [address] [place] [address] Dr. Reji Pickett Albumin/Globulin [Mass ratio] 1.4 {ratio} Normal [facility] Comment on above: Performed By: #### F T3, ALT, AST, BMP, TSH, LIPID #### [facility] [address] [place] [address] Dr. Reji Pickett ALP [Catalytic activity/Vol] 74 U/L Normal 46-116 [facility] Comment on above: Performed By: #### F T3, ALT, AST, BMP, TSH, LIPID #### [facility] [address] [place] [address] Dr. Reji Pickett ALT [Catalytic activity/Vol] 36 U/L Normal 14-59 [facility] Comment on above: Performed By: #### F T3, ALT, AST, BMP, TSH, LIPID #### [facility] [address] [address] [address] Reji Pickett Anion gap [Moles/Vol] 14.1 mmol/L Normal Th e [facility] Comment on above: Performed By: #### F T3, ALT, AST, BMP, TSH, LIPID #### [facility] [address] [place] [address] Dr. Reji Pickett AST [Catalytic activity/Vol] 25 U/L Normal 15-37 [facility] Comment on above: Performed By: #### F T3, ALT, AST, BMP, TSH, LIPID #### [facility] [address] [place] [address] Dr. Reji Pickett Bilirubin [Mass/Vol] 0.8 mg/dL Normal 0.2-1.0 [facility] Comment on above: Performed By: #### F T3, ALT, AST, BMP, TSH, LIPID #### [facility] [address] [place] [address] Dr. Reji Pickett Calcium [Mass/Vol] 8.7 mg/dL Normal 8.5-10.1 [facility] Comment on above: Performed By: #### F T3, ALT, AST, BMP, TSH, LIPID #### [facility] [address] [address] [address] Reji Pickett Chloride [Moles/Vol] 111 mmol/L Critically high 98-107 [facility] Comment on above: Performed By: #### F T3, ALT, AST, BMP, TSH, LIPID #### [facility] [address] [address] [address] Reji Pickett CO2 [Moles/Vol] 22.7 mmol/L Normal 21.0-32.0 [facility] Comment on above: Performed By: #### F T3, ALT, AST, BMP, TSH, LIPID #### [facility] [address] [place] [address] Dr. Reji Pickett Creatinine [Mass/Vol] 0.79 mg/dL Normal 0.55-1.02 [facility] Comment on above: Performed By: #### F T3, ALT, AST, BMP, TSH, LIPID #### [facility] [address] [address] [address] Reji Pickett EGFR-AF ARGENTINE >60 Normal >=60 [facility] Comment on above: Performed By: #### F T3, ALT, AST, BMP, TSH, LIPID #### [facility] [address] [address] [address] Reji Pickett EGFR-NON AF ARGENTINE >60 Normal >=60 [facility] Comment on above: Performed By: #### F T3, ALT, AST, BMP, TSH, LIPID #### [facility] [address] [place] [address] Dr. Reji Pickett Globulin (S) [Mass/Vol] 2.7 g/dL Normal [facility] Comment on above: Performed By: #### F T3, ALT, AST, BMP, TSH, LIPID #### [facility] [address] [place] [address] Dr. Reji Pickett Glucose [Mass/Vol] 94 mg/dL Normal 74-106 [facility] Comment on above: Performed By: #### F T3, ALT, AST, BMP, TSH, LIPID #### [facility] [address] [place] [address] Dr. Reji Pickett Potassium [Moles/Vol] 4.8 mmol/L Normal 3.5-5.1 [facility] Comment on above: Performed By: #### F T3, ALT, AST, BMP, TSH, LIPID #### [facility] [address] [place] [address] Dr. Reji Pickett Protein [Mass/Vol] 6.5 g/dL Normal 6.4-8.2 [facility] Comment on above: Performed By: #### F T3, ALT, AST, BMP, TSH, LIPID #### [facility] [address] [place] [address] Dr. Reji Pickett Sodium [Moles/Vol] 143 mmol/L Normal 136-145 [facility] Comment on above: Performed By: #### F T3, ALT, AST, BMP, TSH, LIPID #### [facility] [address] [address] [address] Reji Pickett Urea nitrogen [Mass/Vol] 20.0 mg/dL Critically high 7.0-18.0 [facility] Comment on above: Performed By: #### F T3, ALT, AST, BMP, TSH, LIPID #### [facility] [address] [address] [address] Reji Pickett Urea nitrogen/Creatinine [Mass ratio] 25.3 mg/mg Normal [facility] Comment on above: Performed By: #### F T3, ALT, AST, BMP, TSH, LIPID #### [facility] [address] [address] [address] Reji Pickett TROPONIN, HIGH SENSITIVITYon 07-27-2022 HSTROP 4.5 pg/mL Normal 4.0-51.3 [facility] Comment on above: Result Comment: CUT- OFF POINTS HAVE BEEN ESTABLISHED BASED ON THE FOURTH UNIVERSAL DEFINITIONS OF MYOCARDIAL INFARCTION. THE UPPER REFERENCE LIMIT (URL) OF TROPONIN, DEFINED THE 99TH PERCENTILE OF cTnI DISTRIBUTION IN A REFERENCE POPULATION, HAS BEEN CONFIRMED THE DECISION THRESHOLD FOR AL DIAGNOSIS. Performed By: #### F T3, ALT, AST, BMP, TSH, LIPID #### [facility] [address] [address] [address] CHEST WO CONon [...] by: JIMENEZ OLIVA Date: 2021-10-31 11:54 Normal [facility] MAMM SCREEN 3D TACO CADon 10-31-2021 MG MAMM SCREEN 3D TACO CAD Patient: EDILMA LEONARDO Exam Date: 10/31/2021 : 1955 Gender:F Ordering : DR OLU JOHNSON . Admission #: [id number] Family : Order #: [id number] CLICK HERE TO VIEW EXAM RADIOLOGY REPORT [...] throat cancer at age 81. LOCATION: [facility] BREAST COMPOSITION: Heterogeneously dense,which may obscure small [...] MD on 10/31/2021 at 13:49 Normal [facility] CBC AUTO DIFFon 10-18-2021 BASO # 0.1 103/ul Normal 0.0-0.1 [facility] Comment on above: Performed By: #### F T3, ALT, AST, BMP, TSH, LIPID #### [facility] [address] [place] [address] Dr. Reji Pickett Basophils/100 WBC (Bld) 1.2 % Normal 0.2-2.0 [facility] Comment on above: Performed By: #### F T3, ALT, AST, BMP, TSH, LIPID #### [facility] [address] [place] [address] Dr. Reji Pickett EO # 0.1 103/ul Normal 0.0-0.7 [facility] Comment on above: Performed By: #### F T3, ALT, AST, BMP, TSH, LIPID #### [facility] [address] [place] [address] Dr. Reji Pickett Eosinophils/100 WBC (Bld) 2.3 % Normal 0.9-7.0 [facility] Comment on above: Performed By: #### F T3, ALT, AST, BMP, TSH, LIPID #### [facility] [address] [place] [address] Dr. Reji Pickett Erythrocyte distribution width (RBC) [Ratio] 14.3 % Normal 11.0-15.0 [facility] Comment on above: Performed By: #### F T3, ALT, AST, BMP, TSH, LIPID #### [facility] [address] [place] [address] Dr. Reji Pickett Hematocrit (Bld) [Volume fraction] 40.6 % Normal 36.0-48.0 [facility] Comment on above: Performed By: #### F T3, ALT, AST, BMP, TSH, LIPID #### [facility] [address] [place] [address] Dr. Reji Pickett Hemoglobin (Bld) [Mass/Vol] 12.6 g/dL Normal 12.0-16.0 [facility] Comment on above: Performed By: #### F T3, ALT, AST, BMP, TSH, LIPID #### [facility] [address] [place] [address] Dr. Reji Pickett IG # 0.01 10e3/ul Normal 0.00-0.03 [facility] Comment on above: Performed By: #### F T3, ALT, AST, BMP, TSH, LIPID #### [facility] [address] [place] [address] Dr. Reji Pickett IG % 0.2 % Normal 0.0-0.5 [facility] Comment on above: Performed By: #### F T3, ALT, AST, BMP, TSH, LIPID #### [facility] [address] [place] [address] Dr. Reji Pickett LYMPH # 2.2 103/ul Normal 1.2-3.8 [facility] Comment on above: Performed By: #### F T3, ALT, AST, BMP, TSH, LIPID #### [facility] [address] [place] [address] Dr. Reji Pickett Lymphocytes/100 WBC (Bld) 39.1 % Normal 20.5-60.0 [facility] Comment on above: Performed By: #### F T3, ALT, AST, BMP, TSH, LIPID #### [facility] [address] [place] [address] Dr. Reji Pickett MANUAL DIFF REQ NO Normal [facility] Comment on above: Performed By: #### F T3, ALT, AST, BMP, TSH, LIPID #### [facility] [address] [place] [address] Dr. Reji Pickett MCH (RBC) [Entitic mass] 31.0 pg Normal 26.7-34.0 [facility] Comment on above: Performed By: #### F T3, ALT, AST, BMP, TSH, LIPID #### [facility] [address] [place] [address] Dr. Reji Pickett MCHC (RBC) [Mass/Vol] 31.0 g/dL Normal 29.9-35.2 [facility] Comment on above: Performed By: #### F T3, ALT, AST, BMP, TSH, LIPID #### [facility] [address] [place] [address] Dr. Reji Pickett MCV (RBC) [Entitic vol] 99.8 fL Critically high 81.0-99.0 [facility] Comment on above: Performed By: #### F T3, ALT, AST, BMP, TSH, LIPID #### [facility] [address] [place] [address] Dr. Reji Pickett MONO # 0.6 103/ul Normal 0.3-0.8 [facility] Comment on above: Performed By: #### F T3, ALT, AST, BMP, TSH, LIPID #### [facility] [address] [place] [address] Dr. Reji Pickett Monocytes/100 WBC (Bld) 10.5 % Normal 1.7-12.0 [facility] Comment on above: Performed By: #### F T3, ALT, AST, BMP, TSH, LIPID #### [facility] [address] [place] [address] Dr. Reji Pickett NEUT # 2.7 103/ul Normal 1.4-6.5 [facility] Comment on above: Performed By: #### F T3, ALT, AST, BMP, TSH, LIPID #### [facility] [address] [place] [address] Dr. Reji Pickett Neutrophils/100 WBC (Bld) 46.7 % Normal 43.0-75.0 [facility] Comment on above: Performed By: #### F T3, ALT, AST, BMP, TSH, LIPID #### [facility] [address] [place] [address] Dr. Reji Pickett Platelet mean volume (Bld) [Entitic vol] 11.2 fL Normal 9.5-13.5 [facility] Comment on above: Performed By: #### F T3, ALT, AST, BMP, TSH, LIPID #### [facility] [address] [place] [address] Dr. Reji Pickett PLT 242 103/ul Normal 150-450 [facility] Comment on above: Performed By: #### F T3, ALT, AST, BMP, TSH, LIPID #### [facility] [address] [place] [address] Dr. Reji Pickett RBC 4.07 106/ul Critically low 4.20-5.40 [facility] Comment on above: Performed By: #### F T3, ALT, AST, BMP, TSH, LIPID #### [facility] [address] [address] [address] Reji Pickett WBC 5.7 103/ul Normal 4.0-11.0 [facility] Comment on above: Performed By: #### F T3, ALT, AST, BMP, TSH, LIPID #### [facility] [address] [address] [address] Reji Pickett FREE T3on 10-18-2021 FREE T3 1.91 pg/mlL Critically low 2.18-3.98 [facility] Comment on above: Performed By: #### F T3, ALT, AST, BMP, TSH, LIPID #### [facility] [address] [place] [address] Dr. Reji Pcikett FREE T4on 10-18-2021 Free T4 [Mass/Vol] 1.06 ng/dL Normal 0.76-1.46 [facility] Comment on above: Performed By: #### F T4 #### [facility] [address] [place] [address] Dr. Reji Pickett LIPID PROFILEon 10-18-2021 CHOL-HDL RATIO NORM SEE BELOW Normal [facility] Comment on above: Result Comment: 3.3 - 4.4 LOW RISK 4.4 - 7.1 AVERAGE RISK 7.1 - 11.0 MODERATE RISK >11.0 HIGH RISK Performed By: #### F T3, ALT, AST, BMP, TSH, LIPID #### [facility] [address] [place] [address] Dr. Reji Pickett Cholesterol [Mass/Vol] 181 mg/dL Normal <=200 [facility] Comment on above: Performed By: #### F T3, ALT, AST, BMP, TSH, LIPID #### [facility] [address] [place] [address] Dr. Reji Pickett Cholesterol in HDL [Mass/Vol] 69 mg/dL Critically high 40-60 [facility] Comment on above: Performed By: #### F T3, ALT, AST, BMP, TSH, LIPID #### [facility] [address] [place] [address] Dr. Reji Pickett Cholesterol in LDL [Mass/Vol] 97.4 mg/dL Normal [facility] Comment on above: Performed By: #### F T3, ALT, AST, BMP, TSH, LIPID #### [facility] [address] [address] [address] Reji Pickett Cholesterol.total/Chol esterol in HDL [Mass ratio] 2.6 {ratio} Normal [facility] Comment on above: Performed By: #### F T3, ALT, AST, BMP, TSH, LIPID #### [facility] [address] [address] [address] Reji Pickett HDL NORMAL > or = 60 mg/dl - LO W CARDIOVASCULAR RISK <40 mg/dl - HIGH CARDIOVASCULAR RISK Normal [facility] Comment on above: Performed By: #### F T3, ALT, AST, BMP, TSH, LIPID #### [facility] [address] [address] [address] Reji Pickett LDL CALC NORMAL SEE BELOW Normal [facility] Comment on above: Result Comment: <100 mg/dl OPTIMAL 100 - 129 mg/dl NEAR OR ABOVE OPTIMAL 130 - 159 mg/dl BORDERLINE HIGH 160 - 189 mg/dl HIGH >190 mg/dl VERY HIGH Performed By: #### F T3, ALT, AST, BMP, TSH, LIPID #### [facility] [address] [address] [address] Reji Pickett Triglyceride [Mass/Vol] 73 mg/dL Normal <=150 [facility] Comment on above: Performed By: #### F T3, ALT, AST, BMP, TSH, LIPID #### [facility] [address] [address] [address] Reji Pickett VLDL CALC 14.6 mg/dL Normal [facility] Comment on above: Performed By: #### F T3, ALT, AST, BMP, TSH, LIPID #### [facility] [address] [address] [address] Reji Pickett PROF CHEM 8 (BAS METB)on Anion gap [Moles/Vol] 14.1 mmol/L Normal [facility] Comment on above: Performed By: #### F T3, ALT, AST, BMP, TSH, LIPID #### [facility] [address] [place] [address] Dr. Reji Pickett Calcium [Mass/Vol] 9.1 mg/dL Normal 8.5-10.1 [facility] Comment on above: Performed By: #### F T3, ALT, AST, BMP, TSH, LIPID #### [facility] [address] [place] [address] Dr. Reji Pickett Chloride [Moles/Vol] 105 mmol/L Normal 98-107 [facility] Comment on above: Performed By: #### F T3, ALT, AST, BMP, TSH, LIPID #### [facility] [address] [place] [address] Dr. Reji Pickett CO2 [Moles/Vol] 27.0 mmol/L Normal 21.0-32.0 [facility] Comment on above: Performed By: #### F T3, ALT, AST, BMP, TSH, LIPID #### [facility] [address] [place] [address] Dr. Reji Pickett Creatinine [Mass/Vol] 0.78 mg/dL Normal 0.55-1.02 [facility] Comment on above: Performed By: #### F T3, ALT, AST, BMP, TSH, LIPID #### [facility] [address] [place] [address] Dr. Reji Pickett EGFR-AF ARGENTINE Normal >=60 [facility] Comment on above: Performed By: #### F T3, ALT, AST, BMP, TSH, LIPID #### [facility] [address] [place] [address] Dr. Reji Pickett EGFR-NON AF ARGENTINE Normal >=60 [facility] Comment on above: Performed By: #### F T3, ALT, AST, BMP, TSH, LIPID #### [facility] [address] [place] [address] Dr. Reji Pickett Glucose [Mass/Vol] 74 mg/dL Normal 74-106 [facility] Comment on above: Performed By: #### F T3, ALT, AST, BMP, TSH, LIPID #### [facility] [address] [place] [address] Dr. Reji Pickett Potassium [Moles/Vol] 4.1 mmol/L Normal 3.5-5.1 [facility] Comment on above: Performed By: #### F T3, ALT, AST, BMP, TSH, LIPID #### [facility] [address] [place] [address] Dr. Reji Pickett Sodium [Moles/Vol] 142 mmol/L Normal 136-145 [facility] Comment on above: Performed By: #### F T3, ALT, AST, BMP, TSH, LIPID #### [facility] [address] [place] [address] Dr. Reji Pickett Urea nitrogen [Mass/Vol] 15.0 mg/dL Normal 7.0-18.0 [facility] Comment on above: Performed By: #### F T3, ALT, AST, BMP, TSH, LIPID #### [facility] [address] [place] [address] Dr. Reji Pickett Urea nitrogen/Creatinine [Mass ratio] 19.2 mg/mg Normal [facility] Comment on above: Performed By: #### F T3, ALT, AST, BMP, TSH, LIPID #### [facility] [address] [place] [address] Dr. Reji Pickett SGOTon 10-18-2021 AST [Catalytic activity/Vol] 33 U/L Normal 15-37 [facility] Comment on above: Performed By: #### F T3, ALT, AST, BMP, TSH, LIPID #### [facility] [address] [place] [address] Dr. Reji Pickett SGPTon 10-18-2021 ALT [Catalytic activity/Vol] 59 U/L Normal 14-59 [facility] Comment on above: Performed By: #### F T3, ALT, AST, BMP, TSH, LIPID #### [facility] [address] [place] [address] Dr. Reji Pickett TSHon 10-18-2021 TSH 1.079 uIU/mL Normal 0.358-3.740 [facility] Comment on above: Performed By: #### F T3, ALT, AST, BMP, TSH, LIPID #### [facility] [address] [place], [place] [address] Dr. Reji Pickett TSH RANGE SEE BELOW Normal [facility] Comment on above: Result Comment: <0.3 4 UIU/ml HYPERTHYROID 0.34-5.60 UIU/ml EUTHYROID >5.60 UIU/ml HYPOTHYROID Performed By: #### F T3, ALT, AST, BMP, TSH, LIPID #### [facility] [address] [place], [place] [address] Dr. Reji Pickett Vital Signs Date Time Vital Sign Value Performing Clinician Faci lity 04-25-2023 21:50-0500 Body temperature 97.5 [degF] GRAPHIC DESIGN INTERN Candelaria Saffle Work Phone: [facility] 04-25-2023 21:50-0500 Diastolic blood pressure 71 mm[Hg] GRAPHIC DESIGN INTERN Candelaria Saffle Work Phone: [facility] 04-25-2023 21:50-0500 Heart rate 59 /min GRAPHIC DESIGN INTERN Candelaria Saffle Work Phone: [facility] 04-25-2023 21:50-0500 Respiratory rate 20 /min GRAPHIC DESIGN INTERN Candelaria Saffle Work Phone: [facility] 04-25-2023 21:50-0500 SaO2% (BldA) [Mass fraction] 95 % GRAPHIC DESIGN INTERN Candelaria Saffle Work Phone: [facility] 04-25-2023 21:50-0500 Systolic blood pressure 134 mm[Hg] GRAPHIC DESIGN INTERN Candelaria Saffle Work Phone: [facility] 04-25-2023 17:23-0500 Body height 162.56 cm GRAPHIC DESIGN INTERN Candelaria Saffle Work Phone: [facility] 04-25-2023 17:23-0500 Body weight 63.4 kg GRAPHIC DESIGN INTERN Candelaria Saffle Work Phone: [facility] Encounters Encounter Date Encounter Type Care Provider Facility Start: 06-24-2023 Bamboo flowsheet Yemi Self 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 [facility] Start: 06-24-2023 Bamboo flowsheet Yemi Self 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 [facility] Start: 06-24-2023 End: 06-24-2023 ambulatory Yemi Self 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 [facility] Comment on above: Radiculopathy affect ing upper extremity (Primary Dx); Lateral epicondylitis of left elbow Start: 06-17-2023 Patient encounter procedure Yemi Self 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 [facility] Start: 06-13-2023 End: 06-13-2023 ambulatory Cassi Pollard 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 [facility] Comment on above: Radiculopathy affect ing upper extremity (Primary Dx); Lateral epicondylitis of left elbow Start: 04-25-2023 End: 04-26-2023 Emergency department patient visit Candelaria Falk Facility:[facility] Start: 04-25-2023 End: 04-25-2023 Emergency department patient visit CECILY Falk Work Phone: [facility] Work Phone: Start: 07-27-2022 End: 07-27-[address] OLU JOHNSON Facility:[facility] Start: 10-31-2021 End: 11-01-[address] OLU JOHNSON Facility:[facility] Start: 10-18-2021 End: 10-19-[address] OLU JOHNSON Facility:[facility] Procedures Date Procedure Procedure Detail Performing Clinician Start: 05-22-2023 Mammography Cassi Hensley candis 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 Start: 04-25-2023 CT of head without contrast GRAPHIC DESIGN INTERNChelita Falk Work Phone: Start: 04-25-2023 Plain chest X-ray CECILY Falk Work Phone: Start: 04-25-2023 SARS-CoV-2, Influenz a & RSV (PCR) GRAPHIC DESIGN INTERNChelita Falk Work Phone: Start: 12-07-2019 Colonoscopy Cassi Hensley ricardakendal 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 Plan of Treatment Date Care Activity Detail Author Start: 12-06-2029 Screening for malignant neoplasm of colon [facility] Start: 06-17-2024 Medicare Annual Wellness (AWV) Medicare Annual Wellness (AWV) [facility] Start: 05-22-2024 Screening for malignant neoplasm of breast Mammogram [facility] Start: 07-10-2023 End: 07-10-2023 Patient encounter procedure 07/10/2023 9:00 AM EST Office Visit [facility] [address] [place] [address] Laure Corona, DYED YARN OPERATOR [address] [place] [address] [facility] Start: 06-26-2023 End: 06-26-2023 ambulatory 06/26/2023 11:00 AM EST Treatment [facility] [address] [place] [address] Nick Prasad, PT [address] [place] [address] [facility] Start: 06-24-2023 End: 06-24-2023 ambulatory [facility] Comment on above: Arrived Start: 06-20-2023 End: 06-20-2023 ambulatory 06/20/2023 11:30 AM EST Treatment [facility] [address] [place] [address] 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, 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 [facility] Start: 06-18-2023 End: 06-18-2023 ambulatory 06/18/2023 11:30 AM EST Treatment [facility] [address] [place] [address] 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, [employer]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 [facility] Start: 06-17-2023 End: 06-17-2023 Patient encounter procedure 06/17/2023 4:30 PM EST Office Visit [facility] [address] [place] [address] Laure Corona, DYED YARN OPERATOR [address] [place] [address] [facility] Start: 10-26-2022 Screening for malignant neoplasm of colon [facility] Start: 1955 Medicare Annual Wellness (AWV) Medicare Annual Wellness (AWV) [facility] Start: 1955 Screening for malignant neoplasm of colon [facility] Patient Education Radiculopathy [facility] Work Phone: Patient referral [facility] Work Phone: Payers Date Payer Category Payer Private Health Insurance [id number] 2023 Self-pay 2019 Medicare MEDICARE MEDICAR E PART B [id number] 2019-[place] [address] [place] [address] Medicare [id number] 1959 Medicare [id number] 1959 Private Health Insurance CLI [id number] 1954 Unknown [id number] 1954 Unknown [id number] 1954 Unknown [id number] Unknown [employer] [id number] Unknown [id number] Social History Date Type Detail Facility Start: 04-25-2023 End: 05-20-2023 Tobacco smoking status NHIS Ex-smoker (finding) [facility] Start: 1955 Sex Assigned At Female [facility] End: 05-13-2015 History of tobacco use Current smoker [facility] End: 05-13-2015 History of tobacco use Cigarette Smoker [facility] Start: 05-20-2023 Tobacco use and exposure Smokeless tobacco non-user [facility] Start: 05-20-2023 End: 06-17-2023 Alcohol intake Current drinker of alcohol (finding) [facility] Start: 05-13-2023 End: 05-20-2023 Alcohol intake [facility] Start: 05-13-2023 End: 06-17-2023 Humiliation, Afraid, Rape, and Kick questionnaire [HARK] [facility] Within the last year , have you been afraid of your partner or ex-partner? No [facility] Frequency of Communication with Friends and Family Not on file [facility] Do you belong to any clubs or organizations such as latter-day groups, unions, fraternal or athletic groups, or school groups? Yes [facility] Are you now , , , , never or living with a partner? [facility] How often to you hav e a drink containing alcohol? 2-4 times a month [facility] How many standard dr inks containing alcohol do you have on a typical day? 3 or 4 [facility] How often do you hav e 6 or more drinks on 1 occasion? Less than monthly [facility] Do you feel stress - tense, restless, nervous, or anxious, or unable to sleep at night because your mind is troubled all the time - these days [OSQ] Very much [facility] (I/We) worried wheth er (my/our) food would run out before (I/we) got money to buy more. Never true [facility] Start: 05-20-2023 Alcohol Comment caffine: 3cups daily [facility] Start: 05-01-2023 Gender identity Identifies as female gender (finding) [facility] How often do you hav e 6 or more drinks on 1 occasion? Never [facility] Do you feel stress - tense, restless, nervous, or anxious, or unable to sleep at night because your mind is troubled all the time - these days [OSQ] Only a little [facility] History of Present illness Narrative 06-13-2023 Cassi Pollard, [employer]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 - 06/13/2023 11:30 AM EST Note Date & Type Note Facility 06-13-2023 History of Presen t illness Narrative Physical Therapy Physical Therapy Treatment Visit Patient Name: Edilma Leonardo Today's Date: 06/13/2023 Encounter Diagnoses Name Primary? Radiculopathy affecting upper extremity Yes Lateral epicondylitis of left elbow Visit number: 2 Supervised Time: 41 minutes Total Time: 56 minutes Time IN: 11:31 AM Time OUT: 12:25 PM History: Pt. Presents PT with c/c left elbow/arm pain which started a month ago. Reports of severe elbow with supination/pronation. Left Upper trapezius muscle spasm catching with shoulder flexion movement. Pt. Injured left UE while throwing her grandson up in air and catching him and a couple days later she started having severe left arm pain. Denies N/T sensation. Presents to PT with left elbow brace. Unable to sleep on left side. Precautions: as tolerated Objective: PT Evaluation (06/11/23) Left shoulder: WFL in all planes except severe catching pain with ER behind head movement Cervical ROM: normal Elbow ROM: supination/pronation WFL but has severe catching pain with movement. Flexibility: right upper trapezius muscle tightness, right deltoid muscle tightness/spasm Strength: shoulder grossly 4+/5 in all planes, triceps 4/5, ER 4/5 Palpation: TTP lateral deltiod UEFS: 50/80 Goals: To be met by 4-6 weeks 1) Pt. Will report of 0/10 left arm pain while reaching/lifting objects to help improve her functional mobility with daily tasks and return to prior level of function. 2) Pt. Will demonstrate normal shoulder AROM ER behind head to blow dry her hair to help improve her functional mobility. 3) Pt. Will demonstrate normal supination/pronation ROM to help improve her functional mobility with daily tasks. 4) Pt. Will demonstrate normal right upper trapezius muscle flexibility to help decrease pain and improve her functional mobility with daily tasks. 5) Pt will demonstrate 5/5 left shoulder strength grossly in all planes to allow her to lift/carry objects to help return to prior level of function. 6) Pt. Will score 70 or greater on UEFS to help improve her functional mobility. Subjective/Pain: localized mid L bicep pain 4/10 denies cervical pain this date TREATMENT: Manual:Delivered manual ther pt supine: SOR, cervical distraction,bilateral UT stretching, STM to left lateral arm/ bicep muscle belly ( 23 minutes) Therapeutic Exercise: Guided patient through skilled therapeutic exercises; exercises in grid ( 18 minutes)focusing on cervical and L UE mobility and strength Therapeutic Activity: Neuromuscular Re-education: Modalities: sitting: IFC with MHP to left shoulder (15 minutes) Assessment: The patient has participated in 2 outpatient PT sessions since start of care on 06/11/23 left arm pain with radicular symptoms. Pt reports pain in elbow has subsided and c/o 4/10 left bicep pain, with popping and grabbing sensation with abduction and external rotation. Continued with manual demos lump along mid bicep muscle. Relief post I.E but pain returned after a few hours. Compliant with performing HEP as instructed. Discussed icing for pain, voiced understanding Plan: Recommend outpatient PT 2x/week for 4-6 weeks per above PT POC pending patient progress and medical necessity standards I hereby deem this POC medically necessary. Please sign below and fax back to the number below. Physician Signature: Date: documented in this encounter [facility] Evaluation note Note Date & Type Note Facility Evaluation note No assessment information availa [facility] Work Phone: Evaluation note Note Date & Type Note Facility Evaluation note Diagnosis Radiculopathy affecting upper extremity- Primary Lateral epicondylitis of left elbow documented in this encounter [facility] Evaluation note Note Date & Type Note Facility Evaluation note Diagnosis Radiculopathy affecting upper extremity- Primary Lateral epicondylitis of left elbow documented in this encounter [facility] Hospital Discharge instructions Note Date & Type [...] chills, unsteady gait or any other concerns [facility] Work Phone: Reason for visit Narrative Consultation (Routine) - Authorized Note Date & Type Note Facility Reason for visit Narrative Specialty Diagnoses / Procedures Referred By Tina vora Referred To Contact Physical Therapy Diagnoses Radiculopathy affecting upper extremity Lateral epicondylitis of left elbow Procedures [facility] OFFICE/OUTPATIENT NEW HIGH [facility] 60 MINUTES Laure Corona NP [address] [place] [address] Nick Prasad, PT [address] [address] Referral ID Status Reason Start Date Expiration Date Visits Requested Visits Authorized [id number] Authorized Consult and Treat 05/20/2023 11/16/2023 10 10 [facility] Reason for visit Narrative Consultation (Routine) - Pending Review Note Date & Type Note Facility Reason for visit Narrative Specialty Diagnoses / Procedures Referred By Tina vora Referred To Contact Physical Therapy Diagnoses Radiculopathy affecting upper extremity Lateral epicondylitis of left elbow Procedures MS OFFICE/OUTPATIENT NEW HIGH [facility] 60 MINUTES Laure Corona NP [address] [place] [address] Nick Prasad, PT [address] [address] Referral ID Status Reason Start Date Expiration Date Visits Requested Visits Authorized [id number] Pending Review Consult and Treat 05/20/2023 11/16/2023 10 10 [facility] Summary Purpose Family History No Family History Records FoundNo Family History Records Found Advance Directives Advance Directive Response Recorded Date/ Time Advance Directives No April 6:19pm Chief Complaint and Reason for Visit Chief Complaint lt arm numb Additional Source Comments INFORMATION SOURCE (unrecogn ized section and content) DATE CREATED AUTHOR 07/31/2022 [facility] DATE CREATED AUTHOR AUTHOR'S ORGANIZ ATION 05/03/2023 [facility] Care Teams (unrecognized sec tion and content) Team Status: Active Member Role Status Dates Olu Johnson MD Primary Care Provider Active Team Status: Inactive Member Role Status Dates Candelaria Falk , GRAPHIC DESIGN INTERN Emergency Provider Active Olu Johnson MD Primary Care Provider Active Supervisor [employer] Relationship Specialty Start Date End Date Olu Johnson MD [address] [place] [address] PCP - General Family Medicine 05/01/23 Laure Cornoa NP [address] [place] [address] Nurse Practitioner Family Medicine 05/01/23 Supervisor [employer] Relationship Specialty Start Date End Date Olu Johnson MD [address] [place] [address] PCP - General Family Medicine 05/01/23 Laure Corona NP [address] [place] [address] Nurse Practitioner Family Medicine 05/01/23 Supervisor [employer] Relationship Specialty Start Date End Date Olu Johnson MD [address] [place] [address] PCP - General Family Medicine 05/01/23 Laure Corona NP [address] [place] [id number] Nurse Practitioner Family Medicine 05/01/23 Goals (unrecognized section and content) Goals may [...] BE BASED ON THE PRIMARY CLINICAL RECORDS. [facility] [employer] [facility]. provides no warranty or guarantee of the accuracy or completeness of information in this document.
[2023-06-25 10:43] LABS: Basophils Absolute Auto 0.1 10^3/uL (0.0-0.1); Basophils Percent Auto 1.5 % (0.2-2.0); Eosinophils Absolute Auto 0.2 10^3/uL (0.0-0.7); Eosinophils Percent Auto 3.2 % (0.9-7.0); Hematocrit 41.7 % (36.0-48.0); Hemoglobin 13.2 g/dL (12.0-16.0); Immature Granulocytes Abs Auto 0.04 10^3/uL (0.00-0.03); Immature Granulocytes Pct Auto 0.6 % (0.0-0.5); Lymphocytes Absolute Auto 2.5 10^3/uL (1.2-3.8); Lymphocytes Percent Auto 38.4 % (20.5-60.0); Mean Corpuscular HGB Conc 31.7 g/dL (29.9-35.2); Mean Corpuscular Hemoglobin 30.6 pg (26.7-34.0); Mean Corpuscular Volume 96.5 fL (81.0-99.0); Mean Platelet Volume 10.2 fL (9.5-13.5); Monocytes Absolute Auto 0.8 10^3/uL (0.3-0.8); Monocytes Percent Auto 11.8 % (1.7-12.0); Neutrophils Absolute Auto 2.9 10^3/uL (1.4-6.5); Neutrophils Percent Auto 44.5 % (43.0-75.0); Platelet Count 259 10^3/uL (150-450); Red Blood Count 4.32 10^6/uL (4.20-5.40); Red Cell Distribution Width 13.2 % (11.0-15.0); White Blood Count 6.6 10^3/uL (4.0-11.0)
== END 2023-06-25 09:47 | disposition home or self-care (01) ==
LOC: LAB 09:47
PROVIDERS: PCP Family Medicine
DX: H02.839 Dermatochalasis of unspecified eye, unspecified eyelid (principal)
CPT/HCPCS: 85025

== ENCOUNTER 2023-11-06 11:13 | Emergency (ER) | payer MEDICARE, SELFPAY ==
[2023-11-06] VITALS (14 sets, daily range): BP systolic 148–214; BP diastolic 69–107; PULSE 43–60; TEMP 36.4; O2SAT 92–96; BMI 24.1
--- NOTE | 2023-11-06 11:25 | ECG_ITS ---
[facility] Test Date: 2023-11-06 Pat Name: MARK SAL Department: Room: - Gender: Female Decaler: : 1955 Requested By: MIRTA JOHNSON Order Number: [id number] Reading MD: CRISTHIAN CARRANZA Measurements Intervals [place] Rate: 59 P: 78 [place]: 156 QRS: 84 QRSD: 74 T: 81 QT: 446 QTc: 446 Interpretive Statements 1100 Sinus rhythm 9110 normal ECG Compared to ECG 04/28/2023 16:20:03 No significant changes Electronically Signed On 11-06-2023 22:42:20 EDT by CRISTHIAN CARRANZA
--- NOTE | 2023-11-06 11:26 | ED_ITS ---
HPI HPI - General Adult General Chief complaint: Headache Stated complaint: HIGH BLOOD PRESSURE Time Seen by Provider: 11/06/23 11:19 Source: patient Mode of arrival: walk-in Limitations: no limitations History of Present Illness HPI narrative: 68-year-old female presents to the emergency department for an elevated blood pressure. She has a history of hypertension and has been taking her medications regularly. For the past few days she has had a headache and elevated blood pressure readings at home. No trauma fever or stiff neck and the headache was not of sudden onset. Her headache is mild to moderate. Related Data Home Medications ?Medication ?Instructions ?Recorded ?Confirmed levothyroxine 25 mcg tablet 25 mcg PO DAILY 04/28/23 11/06/23 lisinopril 20 mg tablet 20 mg PO BID 04/28/23 11/06/23 simvastatin 40 mg tablet 40 mg PO QPM 04/28/23 11/06/23 carvedilol 3.125 mg tablet mg 11/06/23 sertraline 25 mg tablet mg 11/06/23 Allergies Allergy/AdvReac Type Severity Reaction Status Date / Time cephalexin [From Keflex] Allergy Severe Verified 11/06/23 11:20 ciprofloxacin [From Cipro] Allergy Severe Verified 11/06/23 11:20 naproxen Allergy Severe Verified 11/06/23 11:20 Penicillins Allergy Severe Verified 11/06/23 11:20 Opioid HPI Opioid Management Most Recent Opioid Data: Last Pain Scale 4 11/06/23 12:35 Last ED Pain Assessment 11/06/23 12:35 Last MAR Pain Assessment 11/06/23 11:53 Review of Systems ROS Narrative A ten point review of systems is negative except as noted above. Exam Narrative Exam Narrative: Nurses note and vital signs reviewed and patient is not hypoxic. General: The patient appears well and in no apparent distress. Patient is resting comfortably on cart. Skin: Warm, dry, no pallor noted. There is no rash noted. Head: Normocephalic, atraumatic Eye: Normal conjunctiva, no drainage Ears, Nose, Mouth, and Throat: oral mucosa is moist. Nares patent. Neck supple, no nuchal rigidity Cardiovascular: Regular Rate and Rhythm Respiratory: Patient is in no distress, no accessory muscle use, lungs are clear to auscultation, no wheezing, rales or rhonchi Back: non-tender GI: Soft and nontender Musculoskeletal: The patient has no evidence of calf tenderness, no pitting edema, symmetrical pulses noted bilaterally Neurological: A&O, normal speech Psychiatric: Cooperative Constitutional Vital Signs, click to edit/add: Last Vital Signs Temp 97.5 F L 11/06/23 11:17 Pulse 55 L 11/06/23 12:30 Resp 16 11/06/23 12:30 BP 148/91 H 11/06/23 12:30 Pulse Ox 96 11/06/23 12:11 O2 Del Method Room Air 11/06/23 11:17 Course Vital Signs Vital signs: Vital Signs Temperature 97.5 F L 11/06/23 11:17 Pulse Rate 60 11/06/23 11:17 Respiratory Rate 16 11/06/23 11:17 Blood Pressure 210/90 H 11/06/23 11:17 Pulse Oximetry 95 11/06/23 11:17 Oxygen Delivery Method Room Air 11/06/23 11:17 Temperature 97.5 F L 11/06/23 11:17 Pulse Rate 55 L 11/06/23 12:30 Respiratory Rate 16 11/06/23 12:30 Blood Pressure 148/91 H 11/06/23 12:30 Pulse Oximetry 96 11/06/23 12:11 Oxygen Delivery Method Room Air 11/06/23 11:17 Medical Decision Making MDM Narrative Medical decision making narrative: Blood pressure has come down with IV hydralazine and her head is feeling better as well. I have no clinical suspicion of intracranial hemorrhage. She is able to be discharged home and will follow-up with her PCP for blood pressure recheck. Differential Diagnosis Differential Diagnosis: Hypertension, intracranial hemorrhage, tension headache Lab Data Lab results reviewed: Yes I reviewed the patient's lab results Labs: Lab Results 11/06/23 Range/Units 11:27 WBC 7.2 (4.0-11.0) 10^3/uL RBC 3.92 L (4.20-5.40) 10^6/uL Hgb 12.2 (12.0-16.0) g/dL Hct 37.2 (36.0-48.0) % MCV 94.9 (81.0-99.0) fL MCH 31.1 (26.7-34.0) pg MCHC 32.8 (29.9-35.2) g/dL RDW 13.7 (11.0-15.0) % Plt Count 200 (150-450) 10^3/uL MPV 10.3 (9.5-13.5) fL Neut % (Auto) 62.3 (43.0-75.0) % Lymph % (Auto) 25.5 (20.5-60.0) % [place] % (Auto) 9.2 (1.7-12.0) % Eos % (Auto) 2.2 (0.9-7.0) % Baso % (Auto) 0.7 (0.2-2.0) % Neut # (Auto) 4.5 (1.4-6.5) 10^3/uL Lymph # (Auto) 1.8 (1.2-3.8) 10^3/uL [place] # (Auto) 0.7 (0.3-0.8) 10^3/uL Eos # (Auto) 0.2 (0.0-0.7) 10^3/uL Baso # (Auto) 0.1 (0.0-0.1) 10^3/uL Abs Immat Gran (auto) 0.01 (0.00-0.03) 10^3/uL Imm/Tot Granulo (auto) 0.1 (0.0-0.5) % Sodium 141 (136-145) mmol/L Potassium 4.0 (3.5-5.1) mmol/L Chloride 106 (98-107) mmol/L Carbon Dioxide 26.3 (21.0-32.0) mmol/L Anion Gap 12.7 BUN 13.0 (7.0-18.0) mg/dL Creatinine 0.81 (0.55-1.02) mg/dL Est GFR ( Amer) >60 (>=60) Est GFR (Non-Af Amer) >60 (>=60) BUN/Creatinine Ratio 16.0 Glucose 100 (74-106) mg/dL Calcium 9.2 (8.5-10.1) mg/dL ECG Data Attestation: I personally reviewed and interpreted this ECG as follows: (EKG on my interpretation shows normal sinus rhythm with a rate of 59 and no acute changes) Critical Care Time Critical Care Time Critical Care Time: Yes Total Critical Care Time: 35 Attestation: Due to the high probability of sudden and clinically significant deterioration in the patient's condition he/she required the highest level of my preparedness to intervene urgently I provided critical care time including documentation time, medication orders and management, reevaluation, vital sign assessment, ordering and reviewing of lab tests, ordering and reviewing of x-ray studies, and admission orders. Aggregate critical care time is 35 minutes including only time during which I was engaged in work directly related to his/her care and did not include time spent treating other patients simultaneously. Discharge Plan Discharge Stand Alone Forms: Portal Instructions Chief Complaint: Headache Clinical Impression: Hypertension Patient Disposition: Home, Self-Care Time of Disposition Decision: 12:39 Condition: Good Mode of Transportation: Private Vehicle Prescriptions / Home Meds: No Action carvedilol 3.125 mg tablet sertraline 25 mg tablet lisinopril 20 mg tablet 20 mg PO BID levothyroxine 25 mcg tablet 25 mcg PO DAILY simvastatin 40 mg tablet 40 mg PO QPM Print Language: Serbian Instructions: How to Take a Blood Pressure Reading (ED), Hypertension (ED) Additional Instructions: Follow-up with your PCP and keep a record of your blood pressure readings. Referrals: Olu Coelho MD [Primary Care Provider] - 1 week
--- OUTSIDE RECORDS SUMMARY | 2023-11-06 11:28 | XMS_ITS ---
Patient Summarization (C-CDA 2.1 CCD) Created on: November 06, 2023 EDILMA LEONARDO : 1955 Sex: Female Author Organization Sample organization Care Team Providers Care Sales Manager [place] Name Role Phone ELIZABETH, DR OLU Martinez [...] Unavailable NADERER, DR OLU Martinez Referring Unavailable BRYANTS STORE, DR JIMENEZ Hernandez Consulting Unavailable NADERER, DR OLU Martinez Attending Unavailable NADERER, DR OLU Martinez Consulting Unavailable CECILY Falk Emergency Provider MD Olu Johnson Primary Care Provider [phone] Candelaria Falk Attending Unavailable Candelaria Falk Admitting Unavailable Elizabeth, Olu Primary Care Unavailable Aichholz POSTMASTER RELIEF, Laure Unavailable Olu Johnson MD Primary Care Provider AICHHOLZ, LAURE Attending Unavailable BHAKTI PRASAD Attending Unavailable AICHHOLZ, LAURE Referring Unavailable BLANCA POLLARD Attending Unavailable AICHHOLZ, LAURE Referring Unavailable AICHHOLZ, LAURE Attending Unavailable YEMI STERN Attending Unavailable AICHHOLZ, LAURE Referring Unavailable YEMI STERN Attending Unavailable AICHHOLZ, LAURE Referring Unavailable YEMI STERN Attending Unavailable AICHHOLZ, LAURE Referring Unavailable BHAKTI PRASAD Attending Unavailable AICHHOLZ, LAURE Referring Unavailable AICHHOLZ, LAURE Attending Unavailable GARY CEBALLOS Attending Unavailable GARY CEBALLOS Referring Unavailable AICHHOLZ, LAURE Attending Unavailable AICHHOLZ, LAURE Attending Unavailable AICHHOLZ, LAURE Attending Unavailable AICHHOLZ, LAURE Attending Unavailable Allergies Allergy Classification Reported Allergen(s) Allergy Type Date of Onset Reaction(s) Facility (1 source) Cephalexin Drug Allergy 07-28-19 23 [facility] (1 source) Ciprofloxacin Drug Allergy 07-28-19 23 [facility] (1 source) Penicillin Drug Allergy 07-28-19 [facility] (8 sources) Cephalexin; Translations: [cephalexin] Drug Allergy 11-11-19 Dizziness, Rash [facility] (2 sources) Ciprofloxacin; Translations: [ciprofloxacin] Drug Allergy 04-25-20 Gastrointestinal Upset [facility] (8 sources) Penicillins; Translations: [Penicillins] Allergy to substance 04-25-20 Rash [facility] (6 sources) Naproxen Drug Allergy 05-20-19 Swelling, Rash [facility] Encounters Encounter Date Encounter Type Care Provider Facility Start: 10-16-2023 End: 10-16-2023 ambulatory LAURE SABRINA Not Available Start: 09-23-2023 End: 09-23-2023 ambulatory LAURE LITAHHOLZ Not Available Start: 08-21-2023 End: 08-21-2023 ambulatory LAURE CIELOHOLZ Not Available Start: 07-15-2023 End: 07-15-2023 ambulatory GARY Dandre CEBALLOS Not Available Start: 07-10-2023 End: 07-10-2023 ambulatory LAURE LITAHHOLZ Not Available Start: 06-26-2023 Bamboo flowsmichelle hdz PT Work Phone: [facility] Start: 06-26-2023 Bamboo flowsmichelle hdz PT Work Phone: [facility] Start: 06-26-2023 End: 06-26-2023 ambulatory Bhakti Prasad PT Work Phone: [facility] Comment on above: Radiculopathy affect ing upper extremity (Primary Dx); Lateral epicondylitis of left elbow Start: 06-25-2023 Clinisync Result Encounter Generic External Data Provider [facility] Unsolicited Start: 02-13-2024 Clinisync Result Encounter Generic External Data Provider [facility] Unsolicited Start: 06-24-2023 Bamboo flowsheet Yemi Stern TUBING ASSEMBLER [facility] Start: 06-24-2023 Bamboo flowsheet Yemi Stern TUBING ASSEMBLER [facility] Start: 06-24-2023 End: 06-24-2023 ambulatory Yemi Stern TUBING ASSEMBLER [facility] Comment on above: Radiculopathy affect ing upper extremity (Primary Dx); Lateral epicondylitis of left elbow Start: 06-20-2023 End: 06-20-2023 ambulatory YEMI STERN Not Available Start: 06-18-2023 End: 06-18-2023 ambulatory YEMI STERN Not Available Start: 06-17-2023 End: 06-17-2023 ambulatory LAURE AICHHOLZ Not Available Start: 06-17-2023 Patient encounter procedure Yemi Stern TUBING ASSEMBLER [facility] Start: 06-13-2023 End: 06-13-2023 ambulatory Blanca Pollard TUBING ASSEMBLER [facility] Comment on above: Radiculopathy affect ing upper extremity (Primary Dx); Lateral epicondylitis of left elbow Start: 06-11-2023 End: 06-11-2023 ambulatory BHAKTI PRASAD Not Available Start: 05-20-2023 End: 05-20-2023 ambulatory LAURE AICHHOLZ Not Available Start: 05-01-2023 End: 05-01-2023 ambulatory LAURE AICHHOLZ Not Available Start: 04-25-2023 End: 04-26-2023 Emergency department patient visit Candelaria Falk Facility:[facility] Start: 04-25-2023 End: 04-25-2023 Emergency department patient visit CECILY Falk Work Phone: [facility] Work Phone: Start: 07-27-2022 End: 07-27-[address] OLU JOHNSON Facility:[facility] Start: 10-31-2021 End: 11-01-[address] OLU JOHNSON Facility:[facility] Start: 10-18-2021 End: 10-19-[address] OLU JOHNSON Facility:[facility] Medications Current Medications Medication Drug Class(es) Dates Sig (Normalized) Sig (Original) amLODIPine 5 mg oral tablet (5 sources) Dihydropyridine Calcium Channel Balbina Start: 06-18-2023 End: 07-18-2023 take 1 tablet by mouth in the morning amLODIPine (Norvasc) 5 MG tablet Indications: Primary hypertension (CMS/HCC) Take 1 tablet (5 mg) by mouth in the morning. 30 tablet 1 06/18/2023 07/18/2023 Active levothyroxine sodium 0.025 mg oral tablet (7 sources) l-Thyroxine Start: 04-25-2023 Levothyroxine Active MCG TABLET April 25, 2023 12:00am Start: 02-08-2023 take 1 tablet by maria a th in the morning levothyroxine (Synthroid, Levoxyl) 25 MCG tablet Take 25 mcg by mouth in the morning. 0 02/08/2023 Active lisinopril 20 mg oral tablet (7 sources) Angiotensin Converting Enzyme Inhibitor Start: 06-18-2023 [...] 2023 12:00am simvastatin 40 mg oral tablet (7 sources) HMG-CoA Reductase Inhibitor Start: 04-25-2023 Simvastatin Active MG TABLET April 25, 2023 12:00am Start: 02-08-2023 take 1 tablet by maria a th at bedtime simvastatin (Zocor) 40 MG tablet Take 40 mg by mouth at bedtime 0 02/08/2023 Active Payers Date Payer Category Payer Private Health Insurance [id number] 2023 Self-pay 2019 Medicare MEDICARE MEDICAR E PART B [id number] 2019-[place] [address] Medicare [id number] 1959 Medicare [id number] 1959 Private Health Insurance CLI [id number] 1955 Unknown [id number] [id number] .593 1955 Unknown [id number] 2.16.840.1.663413.3.579.2 .593 1954 Unknown [id number] 2.16.840.1.564695.3.579.2 .593 1954 Unknown [id number] 2.16.840.1.355202.3.579.2 .1259 1954 Unknown [id number] 2.16.840.1.126328.3.579.2 .1258 1954 Unknown [id number] 2.16.840.1.653769.3.579.2 .1259 1954 Unknown [id number] 2.16.840.1.194471.3.579.2 .1258 1954 Unknown [id number] 2.16.840.1.381614.3.579.2 .1259 1954 Unknown [id number] 2.16.840.1.330080.3.579.2 .1258 1954 Unknown [id number] 2.16.840.1.967177.3.579.2 .1259 1954 Unknown [id number] 2.16.840.1.342088.3.579.2 .1258 1954 Unknown [id number] 2.16.840.1.273904.3.579.2 .9 1955 Unknown [id number] 2.16.840.1.801164.3.579.2 .1258 1954 Unknown [id number] 2.16.840.1.957246.3.579.2 .1258 1954 Unknown [id number] 2.16.840.1.433658.3.579.2 .1258 1954 Unknown [id number] 2.16.840.1.246896.3.579.2 .1258 1954 Unknown [id number] 2.16.840.1.249396.3.579.2 .1258 1954 Unknown [id number] 2.16.840.1.603041.3.579.2 .1259 Unknown [facility] CLAIM[facility] [id number] Unknown [id number] 2.16.840.1.501243.3.579.2 .531 Plan of Treatment Date Care Activity Detail Author Start: 12-06-2029 Screening for malignant neoplasm of colon [facility] Start: 06-17-2024 Medicare Annual Wellness (AWV) Medicare Annual Wellness (AWV) [facility] Start: 05-22-2024 Screening for malignant neoplasm of breast Mammogram [facility] Start: 07-10-2023 End: 07-10-2023 Patient encounter procedure 07/10/2023 9:00 AM EST Office Visit [facility] [address] [place] [address] Laure Corona NP [address] [place] [id number] [facility] Start: 06-26-2023 End: 06-26-2023 ambulatory [facility] Comment on above: Arrived Start: 06-24-2023 End: 06-24-2023 ambulatory [facility] Comment on above: Arrived Start: 06-20-2023 End: 06-20-2023 ambulatory 06/20/2023 11:30 AM EST Treatment [facility] [address] [facility] [address] [place] [address] Yemi Stern PTA [facility] Start: 06-18-2023 End: 06-18-2023 ambulatory 06/18/2023 11:30 AM EST Treatment [facility] [address] [place] [address] [place] [address] Yemi Stern TUBING ASSEMBLER [facility] Start: 06-17-2023 End: 06-17-2023 Patient encounter procedure 06/17/2023 4:30 PM EST Office Visit [facility] [address] [place] [address] Laure Corona, POSTMASTER RELIEF [address] [place] [address] [facility] Start: 10-26-2022 Screening for malignant neoplasm of colon FIT-DNA [facility] Start: 1955 Medicare Annual Wellness (AWV) Medicare Annual Wellness (AWV) [facility] Start: 1955 Screening for malignant neoplasm of colon [facility] Patient Education Radiculopathy [facility] Work Phone: Patient referral [facility] Work Phone: Problems Active Problems Problem Classification Problem Date Documented Da te Episodic/Chronic Disorders of lipid metabolism (8 sources) Pure hypercholesterolemi a, unspecified; Translations: [Hyperlipidemia, unspecified] Onset: 03-19-2019 05-01-2023 Chronic Essential hypertension (16 sources) Essential (primary) hypertension; Translations: [Hypertensive disorder] Onset: 03-19-2019 Chronic Headache; including migraine (1 source) Headache; including migraine; Translations: [HEADACHE UNSPECIFIED] Onset: 07-31-2022 Nausea and vomiting (4 sources) Nausea with vomiting, unspecified; Translations: [NAUSEA WITH VOMITING UNSPECIFIED] Onset: 07-27-2022 Episodic Nonspecific chest pain (2 sources) Chest pain; Translations: [Chest pain, unspecified] Onset: 04-25-2023 04-25-2023 Episodic Other aftercare (1 source) 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 therapy; Translations: [OTH CUSTODIAL CURRENT DRUG THERAPY] Onset: 07-31-2022 Episodic Other connective tissue disease (9 sources) Lateral epicondylitis of left humerus; Translations: [Lateral epicondylitis, left elbow] Onset: 05-01-2023 06-13-2023 Episodic Other gastrointestinal disorders (1 source) Diarrhea, unspecified; Translations: [DIARRHEA UNSPECIFIED] Onset: 07-31-2022 Episodic Other nutritional; endocrine; and metabolic disorders (5 sources) Overweight in adulthood with body mass index of 25 or more but less than 30; Translations: [Body mass index (BMI) 25.0-25.9, adult] Onset: 06-17-2023 06-17-2023 Episodic Other screening for suspected conditions (not mental disorders or infectious disease) (7 sources) Encounter for screening mammogram for malignant neoplasm of breast; Translations: [Patient encounter status] Onset: 11-02-2021 05-20-2023 Episodic Screening and history of mental health and substance abuse codes (1 source) Personal history of nicotine dependence; Translations: [PERSONAL HISTORY OF NICOTINE DEPEND] Onset: 07-31-2022 Episodic Spondylosis; intervertebral disc disorders; other back problems (10 sources) Nerve root disorder; Translations: [Radiculopathy, site unspecified] Onset: 05-01-2023 04-25-2023 Episodic Thyroid disorders (7 sources) Hypothyroidism, unspecified; Translations: [Hypothyroidism] Onset: 03-19-2019 05-01-2023 Chronic Past or Other Problems Problem Classification Problem Date Documented Da te Episodic/Chronic Mood disorders (5 sources) Mood disorders Onset: 06-17-2023 06-17-2023 Other lower respiratory disease (4 sources) Solitary pulmonary nodule; Translations: [SOLITARY PULMONARY NODULE] Onset: 10-31-2021 Episodic Residual codes; unclassified (1 source) Family history of malignant neoplasm of trachea, bronchus and lung; Translations: [FAM HX MALLORRAINE NEOPLSM TRACH BRON LNG] Onset: 11-02-2021 Episodic Residual codes; unclassified (1 source) Family history of malignant neoplasm of other organs or systems; Translations: [FAM HX MALLORRAINE NEOPLASM OTH ORGN/SYS] Onset: 11-02-2021 Episodic Procedures Date Procedure Procedure Detail Performing Clinician Start: 06-25-2023 ALL CBC WITH AUTO DIFF Generic External Data Provider Start: 05-22-2023 Mammography Blanca chirinos TUBING ASSEMBLER Start: 04-25-2023 CT of head without contrast 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Anastasia Gaona Door 6 Work Phone: Start: 04-25-2023 Plain chest X-ray 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Anastasia Gaona [address] Work Phone: Start: 04-25-2023 SARS-CoV-2, Influenz a & RSV (PCR) 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Anastasia Gaona [address] Work Phone: Start: 12-07-2019 Colonoscopy Blanca chirinos TUBING ASSEMBLER Results Test Name Value Interpretation Reference Range Facility ALL CBC WITH AUTO DIFFon BASOPHILS ABSOLUTE AUTO 0.1 [facility] Basophils/100 WBC (Bld) 1.5 % 0.2 - 2.0 % [facility] Eosinophils/100 WBC (Bld) 3.2 % 0.9 - 7.0 % [facility] Erythrocyte distribution width (RBC) [Ratio] 13.2 % 11.0 - 15.0 % [facility] Hematocrit (Bld) [Volume fraction] 41.7 % 36.0 - 48.0 % [facility] Hemoglobin (Bld) [Mass/Vol] 13.2 g/dL 12.0 - 16.0 g/dL [facility] IMMATURE GRANULOCYTES ABS AUTO 0.04 High [facility] Immature granulocytes/100 WBC (Bld) 0.6 % High 0.0 - 0.5 % [facility] Interpretation and review of laboratory results Abnormal [facility] LYMPHOCYTES ABSOLUTE AUTO 2.5 [facility] Lymphocytes/100 WBC (Bld) 38.4 % 20.5 - 60.0 % [facility] MCH (RBC) [Entitic mass] 30.6 pg 26.7 - 34.0 pg [facility] MCHC (RBC) [Mass/Vol] 31.7 g/dL 29.9 - 35.2 g/dL [facility] MCV (RBC) [Entitic vol] 96.5 fL 81.0 - 99.0 fL [facility] MONOCYTES ABSOLUTE AUTO 0.8 [facility] Monocytes/100 WBC (Bld) 11.8 % 1.7 - 12.0 % [facility] NEUTROPHILS ABSOLUTE AUTO 2.9 [facility] Neutrophils/100 WBC (Bld) 44.5 % 43.0 - 75.0 % [facility] Platelet mean volume (Bld) [Entitic vol] 10.2 fL 9.5 - 13.5 fL [facility] TBH EO # 0.2 [facility]H PLT 259 [facility] TBH RBC 4.32 [facility] WBC 6.6 [facility] Activated partial thrombopla stin time (aPTT) in platelet poor plasma by coagulation aOrdered By: Candelaria Falk on 04-25-2023 aPTT Coag (PPP) [Time] 27.5 s 25.1-36.5 [facility] Comment on above: A hematocrit value g reater than 55% may lead to inaccurate results in coagulation testing. Patients having hematocrit values >55% require a special collection tube for coagulation studies. Please contact the laboratory at [phone] for redraw instructions. B-Type Natriuretic Peptideon 04-25-2023 Natriuretic peptide B (Bld) [Mass/Vol] 44.0 pg/mL Normal 5-100 [facility] Comment on above: Result Comment: PERF ORMED BY: [place] [address] PATHOLOGIST SHIPFITTER YUSRA WHITE M.D. Performed By: #### P TT, BMP, CBC, HS TROP, PT, BNP #### [facility] [address] [place] [address] Basic Metabolic Panelon 04-12 Anion gap [Moles/Vol] 12.1 mmol/L Normal 6.0-15.0 [facility] Comment on above: Performed By: #### P TT, BMP, CBC, HS TROP, PT, BNP #### [facility] [address] Calcium [Mass/Vol] 9.5 mg/dL Normal 8.6-10.3 [facility] Comment on above: Performed By: #### P TT, BMP, CBC, HS TROP, PT, BNP #### [facility] [address] [place] [address] [place] Chloride [Moles/Vol] 103 mmol/L Normal 98-107 [facility] Comment on above: Performed By: #### P TT, BMP, CBC, HS TROP, PT, BNP #### [facility] [address] CO2 [Moles/Vol] 27.0 mmol/L Normal 21.0-31.0 [facility] Comment on above: Performed By: #### P TT, BMP, CBC, HS TROP, PT, BNP #### [facility] [address] Creatinine [Mass/Vol] 0.81 mg/dL Normal 0.60-1.20 [facility] Comment on above: Performed By: #### P TT, BMP, CBC, HS TROP, PT, BNP #### [facility] [address] [place] [address] [place] Creatinine Clr Calc Pharmacy 57.40 [facility] Comment on above: Result Comment: PERF ORMED BY: [place] [address] PATHOLOGIST SHIPFITTER YUSRA WHITE M.D. Performed By: #### P TT, BMP, CBC, HS TROP, PT, BNP #### [facility] [address] [place] [address] [place] GFR/1.73 sq M.predicted MDRD (S/P/Bld) [Vol rate/Area] mL/min/{1.73_m2} [facility] Comment on above: Performed By: #### P TT, BMP, CBC, HS TROP, PT, BNP #### [facility] [address] [place] [address] [place] Glucose [Mass/Vol] 87 mg/dL Normal 70-100 [facility] Comment on above: Result Comment: [place] Glucose Reference Range is dependent on time and content of last meal. Glucose of more than 200 mg/dL in a nonstressed, ambulatory subject supports the diagnosis of Diabetes Mellitus. ADA recommended reference range Performed By: #### P TT, BMP, CBC, HS TROP, PT, BNP #### [facility] [address] Potassium [Moles/Vol] 4.1 mmol/L Normal 3.5-5.1 [facility] Comment on above: Performed By: #### P TT, BMP, CBC, HS TROP, PT, BNP #### [facility] [address] Sodium [Moles/Vol] 138 mmol/L Normal 136-145 [facility] Comment on above: Performed By: #### P TT, BMP, CBC, HS TROP, PT, BNP #### [facility] [address] Urea nitrogen [Mass/Vol] 17 mg/dL Normal 7-25 [facility] Comment on above: Performed By: #### P TT, BMP, CBC, HS TROP, PT, BNP #### [facility] [address] Basophils Auto (Bld) [#/Vol] Ordered By: Candelaria Falk on 04-25-2023 Basophils (Bld) [#/Vol] 0.0 10*3/uL 0.0-0.2 [facility] Basophils/100 WBC Auto (Bld) Ordered By: Candelaria Falk on 04-25-2023 Basophils/100 WBC (Bld) 0.3 % . [facility] COVID CepheidOrdered By: Carie Falk on 04-25-2023 SARS-CoV-2 (COVID-19) Ab IA Ql Negative Negative [facility] Comment on above: This is a duplicate Cepheid Xpert Xpress CoV-2/Flu/RSV Plus RNA by RT-PCR result to be used for statistical tracking purpose only. SARS-CoV-2 (COVID-19) RNA CASSIDY+probe Ql (Unsp spec) [facility] COVID-19 / Flu A/B / [...] or Cepheid Disclaimer revoked sooner. PERFORMED BY: [facility] [place] [id number] PATHOLOGIST SHIPFITTER YUSRA WHITE M.D. [facility] Comment on above: Performed By: #### C EPHEID NEG, COVID19 FLU RSV #### [address] head/brain wo conon 04-25 CT head/brain wo con [facility] [place] [address] [place] [address] CT Scan Report Signed Patient: Edilma Leonardo MR#: [id number] : 1955 Acct:[id number] Age/Sex: 67 / F ADM Date: 04/25/23 Loc: ER Room: Type: [facility] ER Attending Dr: Copies to: Candelaria Falk [...] Lamin Park M.D.04/25/2023 9:04 PM Dictation Location: [place] [address] Transcribed By: [facility] 04/25/232103 Dictated By: Lamin Park II, MD 04/25/232101 Signed By: 04/25/232103 Normal [facility] Calcium [Mass/volume] in Ser um or PlasmaOrdered By: Candelaria Falk on 04-25-2023 Calcium [Mass/Vol] 9.5 mg/dL 8.6-10.3 [facility] Carbon dioxide, total [Moles /volume] in Serum or PlasmaOrdered By: Candelaria Falk on 04-25-2023 CO2 [Moles/Vol] 27.0 mmol/L 21.0-31.0 [facility] Cepheid COVID PCR Negativeon 04-25-2023 SARS-CoV-2 (COVID-19) RNA CASSIDY+probe Ql (Unsp spec) Negative Normal Negative [facility] Comment on above: Result Comment: This is a duplicate CepMeridian Xpert Xpress CoV-2/Flu/RSV Plus RNA by RT-PCR result to be used for statistical tracking purpose only. PERFORMED BY: [place] [address] PATHOLOGIST SHIPFITTER YUSRA WHITE M.D. Performed By: #### C EPHEID NEG, COVID19 FLU RSV #### [facility] [address] [place] [address] [place] Chloride [Moles/volume] in S pawel or PlasmaOrdered By: Candelaria Falk on 04-25-2023 Chloride [Moles/Vol] 103 mmol/L 98-107 [facility] Complete Blood Count Auto Di ffon 04-25-2023 Basophils (Bld) [#/Vol] 0.0 10*3/uL Normal 0.0-0.2 [facility] Comment on above: Result Comment: PERF ORMED BY: [facility] [address] [place] [address] PATHOLOGIST SHIPFITTER YUSRA WHITE M.D. Performed By: #### P TT, BMP, CBC, HS TROP, PT, BNP #### [facility] [address] [place] [address] [place] Basophils/100 WBC (Bld) 0.3 % Normal . [facility] Comment on above: Performed By: #### P TT, BMP, CBC, HS TROP, PT, BNP #### [address] Eosinophils (Bld) [#/Vol] 0.2 10*3/uL Normal 0.0-0.45 [facility] Comment on above: Performed By: #### P TT, BMP, CBC, HS TROP, PT, BNP #### [address] Eosinophils/100 WBC (Bld) 2.6 % Normal . [facility] Comment on above: Performed By: #### P TT, BMP, CBC, HS TROP, PT, BNP #### [address] Erythrocyte distribution width (RBC) [Ratio] 13.5 % Normal 11.9-15.3 [facility] Comment on above: Performed By: #### P TT, BMP, CBC, HS TROP, PT, BNP #### [address] Hematocrit (Bld) [Volume fraction] 42.5 % Normal 34.0-46.4 [facility] Comment on above: Performed By: #### P TT, BMP, CBC, HS TROP, PT, BNP #### [address] Hemoglobin (Bld) [Mass/Vol] 14.4 g/dL Normal 11.8-15.4 [facility] Comment on above: Performed By: #### P TT, BMP, CBC, HS TROP, PT, BNP #### [address] Lymphocytes (Bld) [#/Vol] 2.9 10*3/uL Normal 1.00-4.8 [facility] Comment on above: Performed By: #### P TT, BMP, CBC, HS TROP, PT, BNP #### [address] Lymphocytes/100 WBC (Bld) 40.1 % Normal . [facility] Comment on above: Performed By: #### P TT, BMP, CBC, HS TROP, PT, BNP #### [address] MCH (RBC) [Entitic mass] 31.9 pg Normal 24.7-34.3 [facility] Comment on above: Performed By: #### P TT, BMP, CBC, HS TROP, PT, BNP #### [address] MCV (RBC) [Entitic vol] 93.8 fL Normal 80-100 [facility] Comment on above: Performed By: #### P TT, BMP, CBC, HS TROP, PT, BNP #### [address] Mean Corpuscular HGB Conc 34.0 g/dL Normal 32.0-35.0 [facility] Comment on above: Performed By: #### P TT, BMP, CBC, HS TROP, PT, BNP #### [address] Monocytes (Bld) [#/Vol] 0.6 10*3/uL Normal 0.0-0.8 [facility] Comment on above: Performed By: #### P TT, BMP, CBC, HS TROP, PT, BNP #### [address] Monocytes/100 WBC (Bld) 20.21 % High 0.00-20.00 [facility] Comment on above: Result Comment: For adults in ED, MDW > 20.0 may be associated with a higher risk of sepsis during the first 12 hrs of hospital admission Performed By: #### P TT, BMP, CBC, HS TROP, PT, BNP #### [address] Monocytes/100 WBC (Bld) 7.9 % Normal . [facility] Comment on above: Performed By: #### P TT, BMP, CBC, HS TROP, PT, BNP #### [address] Neutrophils (Bld) [#/Vol] 3.5 10*3/uL Normal 1.8-7.7 [facility] Comment on above: Performed By: #### P TT, BMP, CBC, HS TROP, PT, BNP #### [facility] [address] Neutrophils/100 WBC (Bld) 49.1 % Normal . [facility] Comment on above: Performed By: #### P TT, BMP, CBC, HS TROP, PT, BNP #### [facility] [address] NRBC% 0.0 /100{WBC} Normal 0-0.5 [facility] Comment on above: Performed By: #### P TT, BMP, CBC, HS TROP, PT, BNP #### [address] Platelet mean volume (Bld) [Entitic vol] 8.1 fL Normal 6.3-10.7 [facility] Comment on above: Performed By: #### P TT, BMP, CBC, HS TROP, PT, BNP #### [address] Platelets (Bld) [#/Vol] 247 10*3/uL Normal 150-450 [facility] Comment on above: Performed By: #### P TT, BMP, CBC, HS TROP, PT, BNP #### [address] RBC (Bld) [#/Vol] 4.53 10*6/uL Normal 3.60-5.00 [facility] Comment on above: Performed By: #### P TT, BMP, CBC, HS TROP, PT, BNP #### [address] WBC (Bld) [#/Vol] 7.2 10*3/uL Normal 3.8-11.6 [facility] Comment on above: Performed By: #### P TT, BMP, CBC, HS TROP, PT, BNP #### [address] Creatinine [Mass/volume] in Serum or PlasmaOrdered By: Candelaria Falk on 04-25-2023 Creatinine [Mass/Vol] 0.81 mg/dL 0.60-1.20 [facility] ECG 12 lead ECGon 04-25-2023 ECG [address] [facility] Main [place] [id number] Electrocardiograph Report Signed Patient: Edilma Leonardo MR#: [id number] : 1955 Acct:[id number] Age/Sex: 67 / F ADM Date: 04/25/23 [...] sinus rhythm Confirmed by Santiago BLAKE DO ([id number]) on 04/25/2023 6:14:25 PM Referred By: Electronically Signed By:Santiago BLAKE DO Transcribed By: MUS Signed By Santiago Blake DO 1 06/26/221813 Normal [facility] Eosinophils Auto (Bld) [#/Vo l]Ordered By: Candelaria Falk on 04-25-2023 Eosinophils (Bld) [#/Vol] 0.2 10*3/uL 0.0-0.45 [facility] Eosinophils/100 WBC Auto (Bl d)Ordered By: Candelaria Falk on 04-25-2023 Eosinophils/100 WBC (Bld) 2.6 % . [facility] Erythrocyte distribution wid th Auto (RBC) [Ratio]Ordered By: Candelaria Falk on 04-25-2023 Erythrocyte distribution width (RBC) [Ratio] 13.5 % 11.9-15.3 [facility] Glucose [Mass/volume] in Ser um or PlasmaOrdered By: Candelaria Falk on 04-25-2023 Glucose [Mass/Vol] 87 mg/dL 70-100 [facility] Comment on above: ADA recommended refe rence rangeRandom Glucose Reference Range is dependent on time and content of last meal. Glucose of more than 200 mg/dL in a nonstressed, ambulatory subject supports the diagnosis of Diabetes Mellitus. Hematocrit Auto (Bld) [Volum e fraction]Ordered By: Candelaria Falk on 04-25-2023 Hematocrit (Bld) [Volume fraction] 42.5 % 34.0-46.4 [facility] Hemoglobin [Mass/volume] in BloodOrdered By: Candelaria Falk on 04-25-2023 Hemoglobin (Bld) [Mass/Vol] 14.4 g/dL 11.8-15.4 [facility] INR in Platelet poor plasma by Coagulation assayOrdered By: Candelaria Falk on 04-25-2023 INR Coag (PPP) [Relative time] 1.0 {INR} [facility] Comment on above: INR Therapeutic [...] RBC Auto (Bld) [#/Vol] 7.2 10*3/uL 3.8-11.6 [facility] Lymphocytes Auto (Bld) [#/Vo l]Ordered By: Candelaria Falk on 04-25-2023 Lymphocytes (Bld) [#/Vol] 2.9 10*3/uL 1.00-4.8 [facility] Lymphocytes/100 WBC Auto (Bl d)Ordered By: Candelaria Falk on 04-25-2023 Lymphocytes/100 WBC (Bld) 40.1 % . [facility] MCH Auto (RBC) [Entitic mass ]Ordered By: Candelaria Falk on 04-25-2023 MCH (RBC) [Entitic mass] 31.9 pg 24.7-34.3 [facility] MCHC Auto (RBC) [Mass/Vol]Or dered By: Candelaria Falk on 04-25-2023 MCHC (RBC) [Mass/Vol] 34.0 g/dL 32.0-35.0 [facility] MCV Auto (RBC) [Entitic vol] Ordered By: Candelaria Falk on 04-25-2023 MCV (RBC) [Entitic vol] 93.8 fL 80-100 [facility] Monocyte distribution width [Entitic volume] in Blood by AutomatedOrdered By: Candelaria Falk on 04-25-2023 Monocyte distribution width Auto (Bld) [Entitic vol] 20.21 % 0.00-20.00 [facility] Comment on above: For adults in ED, MD W > 20.0 may be associated with a higher risk of sepsis during the first 12 hrs of hospital admission Monocytes Auto (Bld) [#/Vol] Ordered By: Candelaria Falk on 04-25-2023 Monocytes (Bld) [#/Vol] 0.6 10*3/uL 0.0-0.8 [facility] Monocytes/100 WBC Auto (Bld) Ordered By: Candelaria Falk on 04-25-2023 Monocytes/100 WBC (Bld) 7.9 % . [facility] Natriuretic peptide B [Mass/ Vol]Ordered By: Candelaria Falk on 04-25-2023 Natriuretic peptide B (Bld) [Mass/Vol] 44.0 pg/mL 5-100 [facility] Neutrophils Auto (Bld) [#/Vo l]Ordered By: Candelaria Falk on 04-25-2023 Neutrophils (Bld) [#/Vol] 3.5 10*3/uL 1.8-7.7 [facility] Neutrophils/100 WBC Auto (Bl d)Ordered By: Candelaria Falk on 04-25-2023 Neutrophils/100 WBC (Bld) 49.1 % . [facility] No Panel InformationOrdered By: Candelaria Falk on 04-25-2023 Estimated GFR (CKD-EPI) > 60.0 mL/Min [facility] Creatinine Clearance (Chem 57.40 [facility] Nucleated erythrocytes [Pres ence] in Blood by Automated countOrdered By: Candelaria Falk on 04-25-2023 Nucleated RBC Auto Ql (Bld) 0.0 /100{WBC} 0-0.5 [facility] Partial Thromboplastin Timeo n 04-25-2023 aPTT Coag (Bld) [Time] 27.5 s Normal 25.1-36.5 [facility] Comment on above: Result Comment: A he matocrit value greater than 55% may lead to inaccurate results in coagulation testing. Patients having hematocrit values >55% require a special collection tube for coagulation studies. Please contact the laboratory at [phone] for redraw instructions. PERFORMED BY: [place] [address] PATHOLOGIST SHIPFITTER YUSRA WHITE M.D. Performed By: #### H S TROP #### [address] Platelet mean volume Auto (B ld) [Entitic vol]Ordered By: Candelaria Falk on 04-25-2023 Platelet mean volume (Bld) [Entitic vol] 8.1 fL 6.3-10.7 [facility] Platelets Auto (Bld) [#/Vol] Ordered By: Candelaria Falk on 04-25-2023 Platelets (Bld) [#/Vol] 247 10*3/uL 150-450 [facility] Potassium [Moles/volume] in Serum or PlasmaOrdered By: Candelaria Falk on 04-25-2023 Potassium [Moles/Vol] 4.1 mmol/L 3.5-5.1 [facility] Prothrombin Time INRon 04-25 INR Coag (PPP) [Relative time] 1.0 {INR} Normal [facility] Comment on above: Result Comment: [...] BMP, CBC, HS TROP, PT, BNP #### [facility] [address] [place] [address] [facility] PT Coag (PPP) [Time] 11.5 s Normal 9.0-12.9 [facility] Comment on above: Result Comment: A he matocrit value greater than 55% may lead to inaccurate results in coagulation testing. Patients having hematocrit values >55% require a special collection tube for coagulation studies. Please contact the laboratory at [phone] for redraw instructions. Performed By: #### P TT, BMP, CBC, HS TROP, PT, BNP #### [facility] [address] [place] [address] [facility] Prothrombin time (PT)Ordered By: Candelaria Falk on 04-25-2023 PT Coag (PPP) [Time] 11.5 s 9.0-12.9 [facility] Comment on above: A hematocrit value g reater than 55% may lead to inaccurate results in coagulation testing. Patients having hematocrit values >55% require a special collection tube for coagulation studies. Please contact the laboratory at [phone] for redraw instructions. RBC Auto (Bld) [#/Vol]Ordere d By: Candelaria Falk on 04-25-2023 RBC (Bld) [#/Vol] 4.53 10*6/uL 3.60-5.00 [facility] Serum or plasma anion gap de terminationOrdered By: Candelaria Falk on 04-25-2023 Anion gap [Moles/Vol] 12.1 mmol/L 6.0-15.0 [facility] Sodium [Moles/volume] in Ser um or PlasmaOrdered By: Candelaria Falk on 04-25-2023 Sodium [Moles/Vol] 138 mmol/L 136-145 [facility] Troponin I High Sensitivityo n 04-25-2023 Troponin I High Sensitivity 3.9 pg/mL Normal 0.0-15.0 [facility] Comment on above: Result Comment: PERF ORMED BY: [facility] [address] [place] [id number] PATHOLOGIST SHIPFITTER YUSRA WHITE M.D. Performed By: #### P TT, BMP, CBC, HS TROP, PT, BNP #### [facility] [address] [place] [id number] [facility] Troponin I High Sensitivity 3.8 pg/mL Normal 0.0-15.0 [facility] Comment on above: Result Comment: PERF ORMED BY: [place] [address] PATHOLOGIST SHIPFITTER YUSRA WHITE M.D. Performed By: #### H S TROP #### [address] Troponin I.cardiac [Mass/vol ume] in Serum or Plasma by Detection limit <= 0.01 ng/Ordered By: Candelaria Falk on 04-25-2023 Troponin I.cardiac DL <= 0.01 ng/mL [Mass/Vol] 3.8 pg/mL 0.0-15.0 [facility] Urea nitrogen [Mass/volume] in Serum or PlasmaOrdered By: Candelaria Falk on 04-25-2023 Urea nitrogen [Mass/Vol] 17 mg/dL 7-25 [facility] WBC Auto (Bld) [#/Vol]Ordere d By: Candelaria Falk on 04-25-2023 WBC (Bld) [#/Vol] 7.2 10*3/uL 3.8-11.6 [facility] XR chest 2V*on 04-25-2023 XR chest 2V* [facility] Main [address] [address] XRay Report Signed Patient: Edilma Leonardo MR#: [id number] : 1955 Acct:[id number] Age/Sex: 67 / F ADM Date: 04/25/23 Loc: ER Room: Type: [facility] ER Attending Dr: Copies to: Candelaria Falk [...] Lamin Park M.D.04/25/2023 6:34 PM Dictation Location: [place] [address] Transcribed By: [facility] 04/25/231833 Dictated By: Lamin Park II, MD 04/25/231832 Signed By: 04/25/231833 Normal [facility] CBC W MANUAL DIFFon 07-28-19 ATYPICAL LYMPH # Normal [facility] Comment on above: Performed By: #### F T3, ALT, AST, BMP, TSH, LIPID #### [facility] [address] [place] [address] [address] Reji Pickett ATYPICAL LYMPH % Normal [facility] Comment on above: Performed By: #### F T3, ALT, AST, BMP, TSH, LIPID #### [facility] [address] [place] [address] [address] Reji Pickett BAND # Normal 0.0-0.3 [facility] Comment on above: Performed By: #### F T3, ALT, AST, BMP, TSH, LIPID #### [facility] [address] [place] [address] [address] Reji Pickett BAND % Normal 0-5 [facility] Comment on above: Performed By: #### F T3, ALT, AST, BMP, TSH, LIPID #### [facility] [address] [place] [address] [address] Reji Pickett BASOM # 0.00 103/ul Normal 0.00-0.10 [facility] Comment on above: Performed By: #### F T3, ALT, AST, BMP, TSH, LIPID #### [facility] [address] [place] [address] [address] Reji Pickett BASOM % 0.0 % Critically low 0.2-2.0 [facility] Comment on above: Performed By: #### F T3, ALT, AST, BMP, TSH, LIPID #### [facility] [address] [place] [address] Dr. Reji Pickett BLAST # Normal [facility] Comment on above: Performed By: #### F T3, ALT, AST, BMP, TSH, LIPID #### [facility] [address] [place] [address] Dr. Reji Pickett BLAST % Normal [facility] Comment on above: Performed By: #### F T3, ALT, AST, BMP, TSH, LIPID #### [facility] [address] [place] [address] Dr. Reji Pickett CORRECTED WBC Normal 4.0-11.0 [facility] Comment on above: Performed By: #### F T3, ALT, AST, BMP, TSH, LIPID #### [facility] [address] [place] [address] Dr. Reji Pickett EOS # 0.10 103/ul Normal 0.00-0.70 [facility] Comment on above: Performed By: #### F T3, ALT, AST, BMP, TSH, LIPID #### [facility] [address] [place] [address] Dr. Reji Pickett EOS% 1.0 % Normal 0.9-7.0 [facility] Comment on above: Performed By: #### F T3, ALT, AST, BMP, TSH, LIPID #### [facility] [address] [place] [address] Dr. Reji Pickett HCT 41.1 % Normal 36.0-48.0 [facility] Comment on above: Performed By: #### F T3, ALT, AST, BMP, TSH, LIPID #### [facility] [address] [place] [address] Dr. Reji Pickett HGB 13.6 g/dl Normal 12.0-16.0 [facility] Comment on above: Performed By: #### F T3, ALT, AST, BMP, TSH, LIPID #### [facility] [address] [place] [address] Dr. Reji Pickett LYMPHM # 0.40 103/ul Critically low 1.20-3.80 [facility] Comment on above: Performed By: #### F T3, ALT, AST, BMP, TSH, LIPID #### [facility] [address] [place] [address] Dr. Reji Pickett LYMPHM% 4.0 % Critically low 20.5-60.0 [facility] Comment on above: Performed By: #### F T3, ALT, AST, BMP, TSH, LIPID #### [facility] [address] [place] [address] Dr. Reji Pickett MCH 31.3 pg Normal 26.7-34.0 [facility] Comment on above: Performed By: #### F T3, ALT, AST, BMP, TSH, LIPID #### [facility] [address] [place] [address] Dr. Reji Pickett MCHC 33.1 g/dl Normal 29.9-35.2 [facility] Comment on above: Performed By: #### F T3, ALT, AST, BMP, TSH, LIPID #### [facility] [address] [place] [address] Dr. Reji Pickett MCV 94.5 fL Normal 81.0-99.0 [facility] Comment on above: Performed By: #### F T3, ALT, AST, BMP, TSH, LIPID #### [facility] [address] [place] [address] Dr. Reji Pickett METAMYELOCYTE # Normal [facility] Comment on above: Performed By: #### F T3, ALT, AST, BMP, TSH, LIPID #### [facility] [address] [place] [address] Dr. Reji Pickett METAMYELOCYTE % Normal [facility] Comment on above: Performed By: #### F T3, ALT, AST, BMP, TSH, LIPID #### [facility] [address] [place] [address] Dr. Reji Pickett MONOM# 0.61 103/ul Normal 0.30-0.80 [facility] Comment on above: Performed By: #### F T3, ALT, AST, BMP, TSH, LIPID #### [facility] [address] [place] [address] Dr. Reji Pickett MONOM% 6.0 % Normal 1.7-12.0 [facility] Comment on above: Performed By: #### F T3, ALT, AST, BMP, TSH, LIPID #### [facility] [address] [place] [address] Dr. Reji Pickett MPV 9.8 fL Normal 9.5-13.5 [facility] Comment on above: Performed By: #### F T3, ALT, AST, BMP, TSH, LIPID #### [facility] [address] [place] [address] Dr. Reji Pickett MYELOCYTE # Normal [facility] Comment on above: Performed By: #### F T3, ALT, AST, BMP, TSH, LIPID #### [facility] [address] [place] [address] Dr. Reji Pickett MYELOCYTE % Normal [facility] Comment on above: Performed By: #### F T3, ALT, AST, BMP, TSH, LIPID #### [facility] [address] [place] [address] Dr. Reji Pickett NRBC Normal [facility] Comment on above: Performed By: #### F T3, ALT, AST, BMP, TSH, LIPID #### [facility] [address] [place] [address] Dr. Reji Pickett PLT 191 103/ul Normal 150-450 [facility] Comment on above: Performed By: #### F T3, ALT, AST, BMP, TSH, LIPID #### [facility] [address] [place] [address] Dr. Reji Pickett RBC 4.35 106/ul Normal 4.20-5.40 [facility] Comment on above: Performed By: #### F T3, ALT, AST, BMP, TSH, LIPID #### [facility] [address] [place] [address] Dr. Rjei Pickett RDW 13.7 % Normal 11.0-15.0 [facility] Comment on above: Performed By: #### F T3, ALT, AST, BMP, TSH, LIPID #### [facility] [address] [place] [address] Dr. Reji Pickett SEG # 8.99 103/ul Critically high 1.40-6.50 [facility] Comment on above: Performed By: #### F T3, ALT, AST, BMP, TSH, LIPID #### [facility] [address] [place] [address] Dr. Reji Pickett SEG % 89.0 % Critically high 43.0-75.0 [facility] Comment on above: Performed By: #### F T3, ALT, AST, BMP, TSH, LIPID #### [facility] [address] [place] [address] Dr. Reji Pickett WBC 10.1 103/ul Normal 4.0-11.0 [facility] Comment on above: Performed By: #### F T3, ALT, AST, BMP, TSH, LIPID #### [facility] [address] [place] [address] Dr. Reji Pickett CPKon 07-27-2022 CK [Catalytic activity/Vol] 53 U/L Normal 26-192 [facility] Comment on above: Performed By: #### F T3, ALT, AST, BMP, TSH, LIPID #### [facility] [address] [place] [address] Dr. Reji Pickett ER URINE PROFILEon 3 Bilirubin Ql (U) Negative Normal NEGATIVE [facility] Comment on above: Performed By: #### E RUR #### [facility] [address] [place] [address] Dr. Reji Pickett Clarity (U) CLEAR Normal CLEAR [facility] Comment on above: Performed By: #### E RUR #### [facility] [address] [place] [address] Dr. Reji Pickett Color (U) LT. YELLOW Normal YELLOW [facility] Comment on above: Performed By: #### E RUR #### [facility] [address] [place] [address] Dr. Reji Pickett ERUAHD A micrscopic examina tion will be performed if indicated. Normal [facility] Comment on above: Performed By: #### E RUR #### [facility] [address] [place] [address] Dr. Reji Pickett Glucose Ql (U) Negative Normal NEGATIVE [facility] Comment on above: Performed By: #### E RUR #### [facility] [address] [place] [address] Dr. Reji Pickett Hemoglobin Ql (U) Negative Normal NEGATIVE [facility] Comment on above: Performed By: #### E RUR #### [facility] [address] [place] [address] Dr. Reji Pickett Ketones Ql (U) TRACE Abnormal NEGATIVE [facility] Comment on above: Performed By: #### E RUR #### [facility] [address] [place] [address] Dr. Reji Pickett LEUKOCYTES Negative Normal NEGATIVE [facility] Comment on above: Performed By: #### E RUR #### [facility] [address] [place] [address] Dr. Reji Pickett Nitrite Ql (U) Negative Normal NEGATIVE [facility] Comment on above: Performed By: #### E RUR #### [facility] [address] [place] [address] Dr. Reji Pickett pH (U) 6.0 [pH] Normal 5-9 [facility] Comment on above: Performed By: #### E RUR #### [facility] [address] [place] [address] Dr. Reji Pickett SPEC GRAVITY 1.020 Normal 1.005-<=1. 025 [facility] Comment on above: Performed By: #### E RUR #### [facility] [address] [place] [address] Dr. Reji Pickett UA PROTEIN Negative Normal NEGATIVE/ TRACE [facility] Comment on above: Performed By: #### E RUR #### [facility] [address] [place] [address] Dr. Reji Pickett UR MICRO IND NOT INDICATED Normal [facility] Comment on above: Performed By: #### E RUR #### [facility] [address] [place] [address] Dr. Reji Pickett Urobilinogen Qn (U) 0.2 {Yamile'U}/dL Normal 0.2 - 1. 0 [facility] Comment on above: Performed By: #### E RUR #### [facility] [address] [place] [address] Dr. Reji Pickett LIPASEon 07-27-2022 Lipase [Catalytic activity/Vol] 138.0 U/L Normal 73.0-393.0 [facility] Comment on above: Performed By: #### F T3, ALT, AST, BMP, TSH, LIPID #### [facility] [address] [place] [address] Dr. Reji Pickett PROF 14(COMP METB)on 023 Albumin [Mass/Vol] 3.8 g/dL Normal 3.4-5.0 [facility] Comment on above: Performed By: #### F T3, ALT, AST, BMP, TSH, LIPID #### [facility] [address] [place] [address] Dr. Reji Pickett Albumin/Globulin [Mass ratio] 1.4 {ratio} Normal [facility] Comment on above: Performed By: #### F T3, ALT, AST, BMP, TSH, LIPID #### [facility] [address] [place] [address] Dr. Reji Pickett ALP [Catalytic activity/Vol] 74 U/L Normal 46-116 [facility] Comment on above: Performed By: #### F T3, ALT, AST, BMP, TSH, LIPID #### [facility] [address] [place] [address] Dr. Reji Pickett ALT [Catalytic activity/Vol] 36 U/L Normal 14-59 [facility] Comment on above: Performed By: #### F T3, ALT, AST, BMP, TSH, LIPID #### [facility] [address] [place] [address] Dr. Reji Pickett Anion gap [Moles/Vol] 14.1 mmol/L Normal [facility] Comment on above: Performed By: #### F T3, ALT, AST, BMP, TSH, LIPID #### [facility] [address] [place] [address] Dr. Reji Pickett AST [Catalytic activity/Vol] 25 U/L Normal 15-37 [facility] Comment on above: Performed By: #### F T3, ALT, AST, BMP, TSH, LIPID #### [facility] [address] [place] [address] Dr. Reji Pickett Bilirubin [Mass/Vol] 0.8 mg/dL Normal 0.2-1.0 [facility] Comment on above: Performed By: #### F T3, ALT, AST, BMP, TSH, LIPID #### [facility] [address] [place] [address] [address] Reji Pickett Calcium [Mass/Vol] 8.7 mg/dL Normal 8.5-10.1 [facility] Comment on above: Performed By: #### F T3, ALT, AST, BMP, TSH, LIPID #### [facility] [address] [place] [address] [address] Reji Pickett Chloride [Moles/Vol] 111 mmol/L Critically high 98-107 [facility] Comment on above: Performed By: #### F T3, ALT, AST, BMP, TSH, LIPID #### [facility] [facility] [address] [place] [address] Dr. Reji Pickett CO2 [Moles/Vol] 22.7 mmol/L Normal 21.0-32.0 [facility] Comment on above: Performed By: #### F T3, ALT, AST, BMP, TSH, LIPID #### [facility] [address] [place] [address] Dr. Reji Pickett Creatinine [Mass/Vol] 0.79 mg/dL Normal 0.55-1.02 [facility] Comment on above: Performed By: #### F T3, ALT, AST, BMP, TSH, LIPID #### [facility] [address] [place] [address] Dr. Reji Pickett EGFR-AF MACEDONIAN >60 Normal >=60 [facility] Comment on above: Performed By: #### F T3, ALT, AST, BMP, TSH, LIPID #### [facility] [address] [address] [address] Reji Pickett EGFR-NON AF MACEDONIAN >60 Normal >=60 [facility] Comment on above: Performed By: #### F T3, ALT, AST, BMP, TSH, LIPID #### [facility] [address] [address] [address] Reji Pickett Globulin (S) [Mass/Vol] 2.7 g/dL Normal [facility] Comment on above: Performed By: #### F T3, ALT, AST, BMP, TSH, LIPID #### [facility] [address] [place] [address] Dr. Reji Pickett Glucose [Mass/Vol] 94 mg/dL Normal 74-106 [facility] Comment on above: Performed By: #### F T3, ALT, AST, BMP, TSH, LIPID #### [facility] [address] [place] [address] Dr. Reji Pickett Potassium [Moles/Vol] 4.8 mmol/L Normal 3.5-5.1 [facility] Comment on above: Performed By: #### F T3, ALT, AST, BMP, TSH, LIPID #### [facility] [address] [place] [address] Dr. Reji Pickett Protein [Mass/Vol] 6.5 g/dL Normal 6.4-8.2 [facility] Comment on above: Performed By: #### F T3, ALT, AST, BMP, TSH, LIPID #### [facility] [address] [place] [address] Dr. Reji Pickett Sodium [Moles/Vol] 143 mmol/L Normal 136-145 [facility] Comment on above: Performed By: #### F T3, ALT, AST, BMP, TSH, LIPID #### [facility] [address] [place] [address] Dr. Reji Pickett Urea nitrogen [Mass/Vol] 20.0 mg/dL Critically high 7.0-18.0 [facility] Comment on above: Performed By: #### F T3, ALT, AST, BMP, TSH, LIPID #### [facility] [address] [place], [place] [address] Dr. Reji Pickett Urea nitrogen/Creatinine [Mass ratio] 25.3 mg/mg Normal [facility] Comment on above: Performed By: #### F T3, ALT, AST, BMP, TSH, LIPID #### [facility] [address] [place], [place] [address] Dr. Reji Pickett TROPONIN, HIGH SENSITIVITYon 07-27-2022 HSTROP 4.5 pg/mL Normal 4.0-51.3 [facility] Comment on above: Result Comment: CUT- OFF POINTS HAVE BEEN ESTABLISHED BASED ON THE FOURTH UNIVERSAL DEFINITIONS OF MYOCARDIAL INFARCTION. THE UPPER REFERENCE LIMIT (URL) OF TROPONIN, DEFINED THE 99TH PERCENTILE OF cTnI DISTRIBUTION IN A REFERENCE POPULATION, HAS BEEN CONFIRMED THE DECISION THRESHOLD FOR OR DIAGNOSIS. Performed By: #### F T3, ALT, AST, BMP, TSH, LIPID #### [facility] [address] [place], [place] [address] CHEST WO CONon [...] JIMENEZ OLIVA Date: 2021-10-31 11:54 Normal [facility] MG MAMM SCREEN 3D TACO CADon 10-31-2021 MG MAMM SCREEN 3D TACO CAD Patient: EDILMA LEONARDO Exam Date: 10/31/2021 : 1955 Gender:F Ordering : DR OLU JOHNSON . Admission #: [id number] Family : Order #: [id number] CLICK HERE TO VIEW EXAM RADIOLOGY REPORT [...] throat cancer at age 81. LOCATION: [facility] BREAST COMPOSITION: Heterogeneously dense,which may obscure [...] MD on 10/31/2021 at 13:49 Normal [facility] CBC AUTO DIFFon 10-18-2021 BASO # 0.1 103/ul Normal 0.0-0.1 [facility] Comment on above: Performed By: #### F T3, ALT, AST, BMP, TSH, LIPID #### [facility] [address] [address] [address] Reji Pickett Basophils/100 WBC (Bld) 1.2 % Normal 0.2-2.0 [facility] Comment on above: Performed By: #### F T3, ALT, AST, BMP, TSH, LIPID #### [facility] [address] [place] [address] Dr. Reji Pickett EO # 0.1 103/ul Normal 0.0-0.7 [facility] Comment on above: Performed By: #### F T3, ALT, AST, BMP, TSH, LIPID #### [facility] [address] [place] [address] Dr. Reji Pickett Eosinophils/100 WBC (Bld) 2.3 % Normal 0.9-7.0 [facility] Comment on above: Performed By: #### F T3, ALT, AST, BMP, TSH, LIPID #### [facility] [address] [place] [address] Dr. Reji Pickett Erythrocyte distribution width (RBC) [Ratio] 14.3 % Normal 11.0-15.0 [facility] Comment on above: Performed By: #### F T3, ALT, AST, BMP, TSH, LIPID #### [facility] [address] [place] [address] Dr. Reji Pickett Hematocrit (Bld) [Volume fraction] 40.6 % Normal 36.0-48.0 [facility] Comment on above: Performed By: #### F T3, ALT, AST, BMP, TSH, LIPID #### [facility] [address] [place] [address] Dr. Reji Pickett Hemoglobin (Bld) [Mass/Vol] 12.6 g/dL Normal 12.0-16.0 [facility] Comment on above: Performed By: #### F T3, ALT, AST, BMP, TSH, LIPID #### [facility] [address] [place] [address] Dr. Reji Pickett IG # 0.01 10e3/ul Normal 0.00-0.03 [facility] Comment on above: Performed By: #### F T3, ALT, AST, BMP, TSH, LIPID #### [facility] [address] [place] [address] Dr. Reji Pickett IG % 0.2 % Normal 0.0-0.5 [facility] Comment on above: Performed By: #### F T3, ALT, AST, BMP, TSH, LIPID #### [facility] [address] [place] [address] Dr. Reji Pickett LYMPH # 2.2 103/ul Normal 1.2-3.8 [facility] Comment on above: Performed By: #### F T3, ALT, AST, BMP, TSH, LIPID #### [facility] [address] [place] [address] Dr. Reji Pickett Lymphocytes/100 WBC (Bld) 39.1 % Normal 20.5-60.0 [facility] Comment on above: Performed By: #### F T3, ALT, AST, BMP, TSH, LIPID #### [facility] [address] [place] [address] Dr. Reji Pickett MANUAL DIFF REQ NO Normal [facility] Comment on above: Performed By: #### F T3, ALT, AST, BMP, TSH, LIPID #### [facility] [address] [place] [address] Dr. Reji Pickett MCH (RBC) [Entitic mass] 31.0 pg Normal 26.7-34.0 [facility] Comment on above: Performed By: #### F T3, ALT, AST, BMP, TSH, LIPID #### [facility] [address] [place] [address] Dr. Reji Pickett MCHC (RBC) [Mass/Vol] 31.0 g/dL Normal 29.9-35.2 [facility] Comment on above: Performed By: #### F T3, ALT, AST, BMP, TSH, LIPID #### [facility] [address] [place] [address] Dr. Reji Pickett MCV (RBC) [Entitic vol] 99.8 fL Critically high 81.0-99.0 [facility] Comment on above: Performed By: #### F T3, ALT, AST, BMP, TSH, LIPID #### [facility] [address] [place] [address] Dr. Reji Pickett MONO # 0.6 103/ul Normal 0.3-0.8 [facility] Comment on above: Performed By: #### F T3, ALT, AST, BMP, TSH, LIPID #### [facility] [address] [place] [address] Dr. Reji Pickett Monocytes/100 WBC (Bld) 10.5 % Normal 1.7-12.0 [facility] Comment on above: Performed By: #### F T3, ALT, AST, BMP, TSH, LIPID #### [facility] [address] [place] [address] Dr. Reji Pickett NEUT # 2.7 103/ul Normal 1.4-6.5 [facility] Comment on above: Performed By: #### F T3, ALT, AST, BMP, TSH, LIPID #### [facility] [address] [place] [address] Dr. Reji Pickett Neutrophils/100 WBC (Bld) 46.7 % Normal 43.0-75.0 [facility] Comment on above: Performed By: #### F T3, ALT, AST, BMP, TSH, LIPID #### [facility] [address] [place] [address] Dr. Reji Pickett Platelet mean volume (Bld) [Entitic vol] 11.2 fL Normal 9.5-13.5 [facility] Comment on above: Performed By: #### F T3, ALT, AST, BMP, TSH, LIPID #### [facility] [address] [place] [address] Dr. Reji Pickett PLT 242 103/ul Normal 150-450 [facility] Comment on above: Performed By: #### F T3, ALT, AST, BMP, TSH, LIPID #### [facility] [address] [place] [address] Dr. Reji Pickett RBC 4.07 106/ul Critically low 4.20-5.40 [facility] Comment on above: Performed By: #### F T3, ALT, AST, BMP, TSH, LIPID #### [facility] [address] [place] [address] Dr. Reji Pickett WBC 5.7 103/ul Normal 4.0-11.0 [facility] Comment on above: Performed By: #### F T3, ALT, AST, BMP, TSH, LIPID #### [facility] [address] [place] [address] Dr. Reji Pickett FREE T3on 10-18-2021 FREE T3 1.91 pg/mlL Critically low 2.18-3.98 [facility] Comment on above: Performed By: #### F T3, ALT, AST, BMP, TSH, LIPID #### [facility] [address] [address] [address] Reji Pickett FREE T4on 10-18-2021 Free T4 [Mass/Vol] 1.06 ng/dL Normal 0.76-1.46 [facility] Comment on above: Performed By: #### F T4 #### [facility] [address] [address] [address] Reji Pickett LIPID PROFILEon 10-18-2021 CHOL-HDL RATIO NORM SEE BELOW Normal [facility] Comment on above: Result Comment: 3.3 - 4.4 LOW RISK 4.4 - 7.1 AVERAGE RISK 7.1 - 11.0 MODERATE RISK >11.0 HIGH RISK Performed By: #### F T3, ALT, AST, BMP, TSH, LIPID #### [facility] [address] [address] [address] Reji Pickett Cholesterol [Mass/Vol] 181 mg/dL Normal <=200 [facility] Comment on above: Performed By: #### F T3, ALT, AST, BMP, TSH, LIPID #### [facility] [address] [address] [address] Reji Pickett Cholesterol in HDL [Mass/Vol] 69 mg/dL Critically high 40-60 [facility] Comment on above: Performed By: #### F T3, ALT, AST, BMP, TSH, LIPID #### [facility] [address] [address] [address] Reji Pickett Cholesterol in LDL [Mass/Vol] 97.4 mg/dL Normal [facility] Comment on above: Performed By: #### F T3, ALT, AST, BMP, TSH, LIPID #### [facility] [address] [address] [address] Reji Pickett Cholesterol.total/Chol esterol in HDL [Mass ratio] 2.6 {ratio} Normal [facility] Comment on above: Performed By: #### F T3, ALT, AST, BMP, TSH, LIPID #### [facility] [address] [address] [address] Reji Pickett HDL NORMAL > or = 60 mg/dl - LO W CARDIOVASCULAR RISK <40 mg/dl - HIGH CARDIOVASCULAR RISK Normal [facility] Comment on above: Performed By: #### F T3, ALT, AST, BMP, TSH, LIPID #### [facility] [address] [address] [address] Reji Pickett LDL CALC NORMAL SEE BELOW Normal [facility] Comment on above: Result Comment: <100 mg/dl OPTIMAL 100 - 129 mg/dl NEAR OR ABOVE OPTIMAL 130 - 159 mg/dl BORDERLINE HIGH 160 - 189 mg/dl HIGH >190 mg/dl VERY HIGH Performed By: #### F T3, ALT, AST, BMP, TSH, LIPID #### [facility] [address] [address] [address] Reji Pickett Triglyceride [Mass/Vol] 73 mg/dL Normal <=150 [facility] Comment on above: Performed By: #### F T3, ALT, AST, BMP, TSH, LIPID #### [facility] [address] [address] [address] Reji Pickett VLDL CALC 14.6 mg/dL Normal [facility] Comment on above: Performed By: #### F T3, ALT, AST, BMP, TSH, LIPID #### [facility] [address] [address] [address] Reji Pickett PROF CHEM 8 (BAS METB)on Anion gap [Moles/Vol] 14.1 mmol/L Normal [facility] Comment on above: Performed By: #### F T3, ALT, AST, BMP, TSH, LIPID #### [facility] [address] [address] [address] Reji Pickett Calcium [Mass/Vol] 9.1 mg/dL Normal 8.5-10.1 [facility] Comment on above: Performed By: #### F T3, ALT, AST, BMP, TSH, LIPID #### [facility] [address] [place] [address] Dr. Reji Pickett Chloride [Moles/Vol] 105 mmol/L Normal 98-107 [facility] Comment on above: Performed By: #### F T3, ALT, AST, BMP, TSH, LIPID #### [facility] [address] [address] [address] Reji Pickett CO2 [Moles/Vol] 27.0 mmol/L Normal 21.0-32.0 [facility] Comment on above: Performed By: #### F T3, ALT, AST, BMP, TSH, LIPID #### [facility] [address] [address] [address] Reji Pickett Creatinine [Mass/Vol] 0.78 mg/dL Normal 0.55-1.02 [facility] Comment on above: Performed By: #### F T3, ALT, AST, BMP, TSH, LIPID #### [facility] [address] [place] [address] Dr. Reji Pickett EGFR-AF MACEDONIAN Normal >=60 [facility] Comment on above: Performed By: #### F T3, ALT, AST, BMP, TSH, LIPID #### [facility] [address] [address] [address] Reji Pickett EGFR-NON AF MACEDONIAN Normal >=60 [facility] Comment on above: Performed By: #### F T3, ALT, AST, BMP, TSH, LIPID #### [facility] [address] [address] [address] Reji Pickett Glucose [Mass/Vol] 74 mg/dL Normal 74-106 [facility] Comment on above: Performed By: #### F T3, ALT, AST, BMP, TSH, LIPID #### [facility] [address] [address] [address] Reji Pickett Potassium [Moles/Vol] 4.1 mmol/L Normal 3.5-5.1 [facility] Comment on above: Performed By: #### F T3, ALT, AST, BMP, TSH, LIPID #### [facility] [address] [address] [address] Reji Pickett Sodium [Moles/Vol] 142 mmol/L Normal 136-145 [facility] Comment on above: Performed By: #### F T3, ALT, AST, BMP, TSH, LIPID #### [facility] [address] [place] [address] Dr. Reji Pickett Urea nitrogen [Mass/Vol] 15.0 mg/dL Normal 7.0-18.0 [facility] Comment on above: Performed By: #### F T3, ALT, AST, BMP, TSH, LIPID #### [facility] [address] [place] [address] Dr. Reji Pickett Urea nitrogen/Creatinine [Mass ratio] 19.2 mg/mg Normal [facility] Comment on above: Performed By: #### F T3, ALT, AST, BMP, TSH, LIPID #### [facility] [address] [place] [address] Dr. Reji STOKESOToanastasia 10-18-2021 AST [Catalytic activity/Vol] 33 U/L Normal 15-37 [facility] Comment on above: Performed By: #### F T3, ALT, AST, BMP, TSH, LIPID #### [facility] [address] [place] [address] Dr. Reji Pickett SGPTon 10-18-2021 ALT [Catalytic activity/Vol] 59 U/L Normal 14-59 [facility] Comment on above: Performed By: #### F T3, ALT, AST, BMP, TSH, LIPID #### [facility] [address] [place] [address] Dr. Reji Pickett TSHon 10-18-2021 TSH 1.079 uIU/mL Normal 0.358-3.74 0 [facility] Comment on above: Performed By: #### F T3, ALT, AST, BMP, TSH, LIPID #### [facility] [address] [place] [address] Dr. Reji Pickett TSH RANGE SEE BELOW Normal [facility] Comment on above: Result Comment: <0.3 4 UIU/ml HYPERTHYROID 0.34-5.60 UIU/ml EUTHYROID >5.60 UIU/ml HYPOTHYROID Performed By: #### F T3, ALT, AST, BMP, TSH, LIPID #### [facility] [address] [address] [address] Reji Pickett Social History Date Type Detail Facility Start: 05-20-2023 Tobacco use and exposure Smokeless tobacco non-user [facility] Start: 05-20-2023 End: 06-17-2023 Alcohol intake Current drinker of alcohol (finding) [facility] Start: 05-13-2023 End: 05-20-2023 Alcohol intake [facility] Start: 05-20-2023 Alcohol Comment caffine: 3cups daily [facility] Start: 05-13-2023 End: 06-17-2023 Humiliation, Afraid, Rape, and Kick questionnaire [HARK] [facility] Start: 05-01-2023 Gender identity Identifies as female gender (finding) [facility] Start: 04-25-2023 End: 05-20-2023 Tobacco smoking status NHIS Ex-smoker (finding) [facility] Start: 1955 Sex Assigned At Female [facility] End: 05-13-2015 History of tobacco use Current smoker [facility] End: 05-13-2015 History of tobacco use Cigarette Smoker [facility] Within the last year , have you been afraid of your partner or ex-partner? No [facility] Frequency of Communication with Friends and Family Not on file [facility] Do you belong to any clubs or organizations such as adventism groups, unions, fraternal or athletic groups, or [...] to buy more. Never true [facility] How often do you hav e 6 or more drinks on 1 occasion? Never [facility] Do you feel stress - tense, restless, nervous, or anxious, or unable to sleep at night because your mind is troubled all the time - these days [OSQ] Only a little [facility] Vital Signs Date Time Vital Sign Value Performing Clinician Faci lity 04-25-2023 21:50-0500 Body temperature 97.5 [degF] [facility] [address] Work Phone: [facility] 04-25-2023 21:50-0500 Diastolic blood pressure 71 mm[Hg] [facility] [employer] Work Phone: [facility] 04-25-2023 21:50-0500 Heart rate 59 /min [facility] [employer] Work Phone: [facility] 04-25-2023 21:50-0500 Respiratory rate 20 /min [facility] [employer] Work Phone: [facility] 04-25-2023 21:50-0500 SaO2% (BldA) [Mass fraction] 95 % 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 [employer] Work Phone: [facility] 04-25-2023 21:50-0500 Systolic blood pressure 134 mm[Hg] [facility] [employer] Work Phone: [facility] 04-25-2023 17:23-0500 Body height 162.56 cm [facility] [employer] Work Phone: [facility] 04-25-2023 17:23-0500 Body weight 63.4 kg [facility] [employer] Work Phone: [facility] History of Present illness Narrative 06-13-2023 Blanca Francescamaria g, [employer] - 06/13/2023 11:30 AM EST Note Date [...] Physician Signature: Date: documented in this encounter [facility] Evaluation note Note Date & Type Note Facility Evaluation note No assessment information availa [facility] Work Phone: Evaluation note Note Date & Type Note Facility Evaluation note Diagnosis Radiculopathy affecting upper extremity- Primary Lateral epicondylitis of left elbow documented in this encounter [facility] Evaluation note Note Date & Type Note Facility Evaluation note Diagnosis Radiculopathy affecting upper extremity- Primary Lateral epicondylitis of left elbow documented in this encounter [facility] Evaluation note Note Date & Type Note Facility Evaluation note Diagnosis Radiculopathy affecting upper extremity- Primary Lateral epicondylitis of left elbow documented in this encounter [facility] Discharge instructions Note Date & [...] chills, unsteady gait or any other concerns [facility] Work Phone: Reason for visit Narrative Consultation (Routine) - Authorized Note Date & Type Note Facility Reason for visit Narrative Specialty Diagnoses / Procedures Referred By Tina vora Referred To Contact Physical Therapy Diagnoses Radiculopathy affecting upper extremity Lateral epicondylitis of left elbow Procedures SC OFFICE/OUTPATIENT NEW HIGH MDM 60 MINUTES Laure Corona NP [address] [place] [address] Bhakti Prasad, PT [address] [address] Referral ID Status Reason Start Date Expiration Date Visits Requested Visits Authorized [id number] Authorized Consult and Treat 05/20/2023 11/16/2023 10 10 [facility] Reason for visit Narrative Consultation (Routine) - Pending Review Note Date & Type Note Facility Reason for visit Narrative Specialty Diagnoses / Procedures Referred By Tina vora Referred To Contact Physical Therapy Diagnoses Radiculopathy affecting upper extremity Lateral epicondylitis of left elbow Procedures SC OFFICE/OUTPATIENT NEW HIGH MDM 60 MINUTES Laure Corona NP [address] [place] [address] Bhakti Prasad, PT [address] [address] Referral ID Status Reason Start Date Expiration Date Visits Requested Visits Authorized [id number] Pending Review Consult and Treat 05/20/2023 11/16/2023 10 10 [facility] Summary Purpose Family History No Family History Records FoundNo Family History Records FoundNo Family History Records Found Advance Directives No Advanced Directives Records Found Advance Directive Response Recorded Date/ Time Advance Directives No April 6:19pm Chief Complaint and Reason for Visit Chief Complaint lt arm numb Additional Source Comments INFORMATION SOURCE (unrecogn ized section and content) DATE CREATED AUTHOR 07/31/2022 [facility] DATE CREATED AUTHOR AUTHOR'S ORGANIZ ATION 05/03/2023 [facility] DATE CREATED AUTHOR AUTHOR'S ORGANIZ ATION 10/17/2023 [facility] Care Teams (unrecognized sec tion and content) Team Status: Active Member Role Status Dates Olu Johnson MD Primary Care Provider Active Team Status: Inactive Member Role Status Dates Candelaria Falk , 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 Emergency Provider Active Olu Johnson MD Primary Care Provider Active [employer] Manager [employer] Relationship Specialty Start Date End Date Olu Johnson MD [address] [place] [phone] PCP - General Family Medicine 05/01/23 Laure Corona NP [address] [place] [phone] Nurse Practitioner Family Medicine 05/01/23 [employer] Relationship Specialty Start Date End Date Olu Johnson MD [address] [place] [phone] PCP - General Family Medicine 05/01/23 Laure Corona NP [address] [place] [phone] Nurse Practitioner Family Medicine 05/01/23 [employer] Relationship Specialty Start Date End Date Olu Johnson MD [address] [place] [phone] PCP - General Family Medicine 05/01/23 Laure Corona NP [address] [place] [phone] Nurse Practitioner Family Medicine 05/01/23 [employer] Relationship Specialty Start Date End Date Olu Johnson MD [address] [place] [id number] PCP - General [facility] 05/01/23 Laure Corona NP [address] [place] [id number] Nurse Practitioner [facility] 05/01/23 [employer] [place] [employer] Relationship Specialty Start Date End Date Olu Johnson MD [address] [place] [id number] PCP - General [facility] 05/01/23 Laure Corona NP [address] [place] [phone] Nurse Practitioner [facility] 05/01/23 Goals (unrecognized section and content) Goals [...] BE BASED ON THE PRIMARY CLINICAL RECORDS. [facility]. provides no warranty or guarantee of the accuracy or completeness of information in this document.
[2023-11-06 11:34] LABS: Basophils Absolute Auto 0.1 10^3/uL (0.0-0.1); Basophils Percent Auto 0.7 % (0.2-2.0); Eosinophils Absolute Auto 0.2 10^3/uL (0.0-0.7); Eosinophils Percent Auto 2.2 % (0.9-7.0); Hematocrit 37.2 % (36.0-48.0); Hemoglobin 12.2 g/dL (12.0-16.0); Immature Granulocytes Abs Auto 0.01 10^3/uL (0.00-0.03); Immature Granulocytes Pct Auto 0.1 % (0.0-0.5); Lymphocytes Absolute Auto 1.8 10^3/uL (1.2-3.8); Lymphocytes Percent Auto 25.5 % (20.5-60.0); Mean Corpuscular HGB Conc 32.8 g/dL (29.9-35.2); Mean Corpuscular Hemoglobin 31.1 pg (26.7-34.0); Mean Corpuscular Volume 94.9 fL (81.0-99.0); Mean Platelet Volume 10.3 fL (9.5-13.5); Monocytes Absolute Auto 0.7 10^3/uL (0.3-0.8); Monocytes Percent Auto 9.2 % (1.7-12.0); Neutrophils Absolute Auto 4.5 10^3/uL (1.4-6.5); Neutrophils Percent Auto 62.3 % (43.0-75.0); Platelet Count 200 10^3/uL (150-450); Red Blood Count 3.92 10^6/uL (4.20-5.40); Red Cell Distribution Width 13.7 % (11.0-15.0); White Blood Count 7.2 10^3/uL (4.0-11.0)
[2023-11-06] MEDS: HYDRALAZINE HCL 20 MG/ML VIAL 10 MG IVP (11:51)
[2023-11-06 11:53] LABS: Anion Gap 12.7; Calcium 9.2 mg/dL (8.5-10.1); Carbon Dioxide 26.3 mmol/L (21.0-32.0); Chloride 106 mmol/L (98-107); Estimated GFR (African America >60 (>=60); Estimated GFR (Non-African Ame >60 (>=60); Glucose 100 mg/dL (74-106); Sodium 141 mmol/L (136-145)
[2023-11-06] MEDS: MORPHINE SULFATE 4 MG/ML VIAL IV (11:53)
== END 2023-11-06 12:45 | disposition home or self-care (01) ==
PROVIDERS: Emergency Provider Emergency Medicine; PCP Family Medicine
DX: I10 Essential (primary) hypertension (principal)
CPT/HCPCS: 36415; 80048; 85025; 93005; 96374; 96375; 99284; J0360; J2270

== ENCOUNTER 2023-11-06 14:01 | Observation (INO) | payer MEDICARE, SELFPAY ==
[2023-11-06] VITALS (13 sets, daily range): BP systolic 128–243; BP diastolic 70–110; PULSE 64–74; TEMP 36.7–36.9; O2SAT 92–97; BMI 24.6; BMI 26.8
--- NOTE | 2023-11-06 14:16 | ECG_ITS ---
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
--- NOTE | 2023-11-06 14:17 | CT_ITS ---
The [address] [address] Patient Name: MARK SAL MRN: [id number] date: 1955 Sex: F Assigned Patient Location: ER Current Patient Location: ER Accession/Order Number: [id number] Exam Date: 11/06/2023 14:55 Report Date: 11/06/2023 15:22 At the request of: KIMBERLEY CARSON Procedure: CT head/brain wo con Exam: Radiographs: XR chest 1V, Reason for exam: Hypertension, headache Comparison: CT scan dated 10/31/2021 CT/CT head/brain wo con IMPRESSION: Possible small amount of atelectasis and/or infiltrate in the lower lungs bilaterally. Mild interstitial prominence in both lungs likely represent edema. Pulmonary venous hypertension. Hyperinflation both lungs. Remainder the chest is unremarkable. EXAM: CT scan of the head without contrast. Dose reduction technique used: Automated exposure control and/or adjustment of the mA and/or kV according to patient size and/or use of iterative reconstruction technique. REASON FOR EXAM: Hypertension, headache COMPARISON: None FINDINGS: No intracranial hemorrhage, mass effect, midline shift, fractures or evidence of acute ischemic infarct. No hydrocephalus. Mild small vessel gliosis. Paranasal sinuses and mastoid air cells are clear. Remainder unremarkable. IMPRESSION: No acute intracranial abnormalities. Electronically authenticated by: CHONG FERRARA Date: 11/06/2023 15:22
--- NOTE | 2023-11-06 14:24 | ED.GENADUL1 ---
HPI HPI - General Adult General Chief complaint: Nausea/Vomiting/Diarrhea Stated complaint: HIGH BLOOD PRESSURE/ SHORTNESS OF BREATH Time Seen by Provider: 11/06/23 14:02 Source: patient Mode of arrival: Wheelchair History of Present Illness HPI narrative: Patient is a 68-year-old female who returns to the emergency department for high blood pressure, frontal headache, dry heaving. She was seen in this emergency department several hours ago for high blood pressure and headache which has been going on since last night. She was given an additional blood pressure medication by her PCP last month, she has a history of high blood pressure. She denies chest pain but states she feels like she cannot breathe and has been dry heaving, she is visibly anxious at my initial interview. She has no other strokelike symptoms. She is noted to be bradycardic at initial interview, carvedilol was the medication that was added for her last month. Related Data Home Medications ?Medication ?Instructions ?Recorded ?Confirmed levothyroxine 25 mcg tablet 25 mcg PO DAILY 04/28/23 11/06/23 lisinopril 20 mg tablet 20 mg PO BID 04/28/23 11/06/23 simvastatin 40 mg tablet 40 mg PO QPM 04/28/23 11/06/23 carvedilol 3.125 mg tablet 3.125 mg 11/06/23 sertraline 25 mg tablet mg 11/06/23 Allergies Allergy/AdvReac Type Severity Reaction Status Date / Time cephalexin [From Keflex] Allergy Severe Verified 11/06/23 14:11 ciprofloxacin [From Cipro] Allergy Severe Verified 11/06/23 14:11 naproxen Allergy Severe Verified 11/06/23 14:11 Penicillins Allergy Severe Verified 11/06/23 14:11 Opioid HPI Opioid Management Most Recent Opioid Data: Last Pain Scale 8 11/06/23 14:52 Last ED Pain Assessment 11/06/23 12:35 Review of Systems ROS Constitutional Denies: fever or chills Ears, nose, mouth, and throat Denies: throat pain Cardiovascular Denies: chest pain Respiratory Reports: shortness of breath; Denies: cough Gastrointestinal Reports: nausea; Denies: vomiting Musculoskeletal Denies: back pain or neck pain Integumentary/Breast Denies: rash or itching Neurological Reports: headache; Denies: numbness in extremities or weakness in extremities Hematologic/Lymphatic Denies: easy bruising or easy bleeding Exam Narrative Exam Narrative: Gen.: Awake, alert, in no distress Head: Normocephalic, atraumatic ENT: Moist mucous membranes Respiratory: No respiratory distress, lungs clear bilaterally Cardio: Regular rate and rhythm Extremities: Moves extremities equally, No pitting edema Psych: Normal mood and affect Neuro: No focal neuro deficit Skin: Warm, dry, intact Constitutional Vital Signs, click to edit/add: Last Vital Signs Temp 98.0 F 11/06/23 14:06 Pulse 71 11/06/23 16:06 Resp 18 11/06/23 16:06 BP 142/90 H 11/06/23 16:06 Pulse Ox 92 L 11/06/23 16:06 O2 Del Method Room Air 11/06/23 14:06 Course Vital Signs Vital signs: Vital Signs Temperature 98.0 F 11/06/23 14:06 Pulse Rate 74 11/06/23 14:06 Respiratory Rate 24 H 11/06/23 14:06 Blood Pressure 214/105 H 11/06/23 14:06 Pulse Oximetry 97 11/06/23 14:06 Oxygen Delivery Method Room Air 11/06/23 14:06 Temperature 98.0 F 11/06/23 14:06 Pulse Rate 71 11/06/23 16:06 Respiratory Rate 18 11/06/23 16:06 Blood Pressure 142/90 H 11/06/23 16:06 Pulse Oximetry 92 L 11/06/23 16:06 Oxygen Delivery Method Room Air 11/06/23 14:06 Medical Decision Making MDM Narrative Medical decision making narrative: Patient medicated with 20 mg IV hydralazine and 1.25 mg IV Vasotec. Her blood pressure improved significantly after giving 0.5 mg IV Ativan. She is resting comfortably. BNP is slightly elevated, patient was reevaluated by attending physician. She states she feels better than when she came in but is not fully back at her baseline and comfortable going home. Given this is her second visit today, she will be admitted for hypertensive urgency. Repeat blood pressure prior to admission is 142/90 manually. Admitted to hospitalist for further evaluation and treatment. SHARED APC VISIT, PHYSICIAN ATTESTATION: [id number] I performed a substantive part of the MDM during the patient?s E/M visit. I personally evaluated and examined the patient. I personally made or approved the documented management plan and acknowledge its risk of complications. Medical Records Medical records reviewed: Yes I reviewed the patient's medical records Lab Data Lab results reviewed: Yes I reviewed the patient's lab results Labs: Lab Results 11/06/23 Range/Units 11:27 PT 11.2 (9.0-11.6) sec INR 1.06 Magnesium 2.0 (1.8-2.4) mg/dL Troponin I High Sens 6.9 (4.0-51.3) pg/mL NT-Pro-B Natriuret Pep 1547.0 H* (<=900.0) pg/mL TSH 1.478 (0.358-3.740) uIU/mL Imaging Data CT scan - head: Attestation: I have reviewed the pertinent imaging results. Radiologist's impression: ITS Impressions Chest X-Ray 11/06/23 14:16 IMPRESSION: Possible small amount of atelectasis and/or infiltrate in the lower lungs bilaterally. Mild interstitial prominence in both lungs likely represent edema. Pulmonary venous hypertension. Hyperinflation both lungs. Remainder the chest is unremarkable. EXAM: CT scan of the head without contrast. Dose reduction technique used: Automated exposure control and/or adjustment of the mA and/or kV according to patient size and/or use of iterative reconstruction technique. REASON FOR EXAM: Hypertension, headache COMPARISON: None FINDINGS: No intracranial hemorrhage, mass effect, midline shift, fractures or evidence of acute ischemic infarct. No hydrocephalus. Mild small vessel gliosis. Paranasal sinuses and mastoid air cells are clear. Remainder unremarkable. IMPRESSION: No acute intracranial abnormalities. Electronically authenticated by: CHONG FERRARA Date: 11/06/2023 15:[address] 11/06/23 14:17 IMPRESSION: Possible small amount of atelectasis and/or infiltrate in the lower lungs bilaterally. Mild interstitial prominence in both lungs likely represent edema. Pulmonary venous hypertension. Hyperinflation both lungs. Remainder the chest is unremarkable. EXAM: CT scan of the head without contrast. Dose reduction technique used: Automated exposure control and/or adjustment of the mA and/or kV according to patient size and/or use of iterative reconstruction technique. REASON FOR EXAM: Hypertension, headache COMPARISON: None FINDINGS: No intracranial hemorrhage, mass effect, midline shift, fractures or evidence of acute ischemic infarct. No hydrocephalus. Mild small vessel gliosis. Paranasal sinuses and mastoid air cells are clear. Remainder unremarkable. IMPRESSION: No acute intracranial abnormalities. Electronically authenticated by: CHONG FERRARA Date: 11/06/2023 15:22 ECG Data Attestation: I personally reviewed and interpreted this ECG as follows: (Normal sinus rhythm at a rate of 64, no acute ST elevation or ectopy. EKG reviewed by attending physician) Discharge Plan Discharge Chief Complaint: Nausea/Vomiting/Diarrhea Patient Disposition: Admitted as Observation Time of Disposition Decision: 16:31 Prescriptions / Home Meds: No Action carvedilol 3.125 mg tablet 3.125 mg sertraline 25 mg tablet lisinopril 20 mg tablet 20 mg PO BID levothyroxine 25 mcg tablet 25 mcg PO DAILY simvastatin 40 mg tablet 40 mg PO QPM Print Language: Mexican Referrals: Olu Coelho MD [Primary Care Provider] - 1 week
--- OUTSIDE RECORDS SUMMARY | 2023-11-06 14:25 | XMS_ITS | CCD ---
Author Organization [facility] Care Team Providers Care Finance Teacher Name Role Phone ELIZABETH, DR OLU Martinez [...] Unavailable NADERER, DR OLU Martinez Referring Unavailable [place], DR JIMENEZ Hernandez Consulting Unavailable NADERER, DR OLU Martinez Attending Unavailable NADERER, DR OLU Martinez Consulting Unavailable CECILY Falk Emergency Provider MD Olu Johnson Primary Care Provider Candelaria Falk Attending Unavailable Candelaria Falk Admitting Unavailable Olu Johnson Primary Care Unavailable Aichholz SORTER OPERATOR, Laure Unavailable Olu Johnson MD Primary Care Provider AICPAULINE, LAURE Attending Unavailable BHAKTI PRASAD Attending Unavailable AICHHOLZ, LAURE Referring Unavailable BLANCA POLLARD Attending Unavailable AICHHOLZ, LAURE Referring Unavailable AICHHOLZ, LAURE Attending Unavailable YEMI STERN Attending Unavailable AICHHOLZ, LAURE Referring Unavailable YEMI STERN Attending Unavailable AICHHOLZ, LAURE Referring Unavailable YEIM STERN Attending Unavailable AICHHOLZ, LAURE Referring Unavailable BHAKTI PRASAD Attending Unavailable AICHHOLZ, LAURE Referring Unavailable AICHHOLZ, LAURE Attending Unavailable GARY CEBALLOS Attending Unavailable GARY CEBALLOS Referring Unavailable AICHHOLZ, LAURE Attending Unavailable AICHHOLZ, LAURE Attending Unavailable AICHHOLZ, LAURE Attending Unavailable AICHHOLZ, LAURE Attending Unavailable Allergies Allergy Classification Reported Allergen(s) Allergy Type Date of Onset Reaction(s) Facility (1 source) Cephalexin Drug Allergy 07-28-19 [facility] Repository (1 source) Ciprofloxacin Drug Allergy 07-28-19 [facility] Rep[facility] (1 source) Penicillin Drug Allergy 07-28-19 [facility] Rep[facility] (8 sources) Cephalexin; Translations: [cephalexin] Drug Allergy 11-11-19 Dizziness, Rash [facility] (2 sources) Ciprofloxacin; Translations: [ciprofloxacin] Drug Allergy 04-25-20 Gastrointestinal Upset [facility] (8 sources) Penicillins; Translations: [Penicillins] Allergy to substance 04-25-20 Rash [facility] (6 sources) Naproxen Drug Allergy 05-20-19 Swelling, Rash [facility] Medications Current Medications [...] 04-25-2023 Episodic Other aftercare (1 source) Other [facility] (current) drug therapy; Translations: [OTH LONG-TERM CURRENT DRUG THERAPY] Onset: 07-31-2022 Episodic Other [...] WITH AUTO DIFFon BASOPHILS ABSOLUTE AUTO 0.1 [facility] Basophils/100 WBC (Bld) 1.5 % 0.2 - 2.0 % [facility] Eosinophils/100 WBC (Bld) 3.2 % 0.9 - 7.0 % [facility] Erythrocyte distribution width (RBC) [Ratio] 13.2 % 11.0 - 15.0 % [facility] Hematocrit (Bld) [Volume fraction] 41.7 % 36.0 - 48.0 % [facility] Hemoglobin (Bld) [Mass/Vol] 13.2 g/dL 12.0 - 16.0 g/dL [facility] IMMATURE GRANULOCYTES ABS AUTO 0.04 High [facility] Immature granulocytes/100 WBC (Bld) 0.6 % High 0.0 - 0.5 % [facility] Interpretation and review of laboratory results Abnormal [facility] LYMPHOCYTES ABSOLUTE AUTO 2.5 [facility] Lymphocytes/100 WBC (Bld) 38.4 % 20.5 - 60.0 % [facility] MCH (RBC) [Entitic mass] 30.6 pg 26.7 - 34.0 pg [facility] MCHC (RBC) [Mass/Vol] 31.7 g/dL 29.9 - 35.2 g/dL [facility] MCV (RBC) [Entitic vol] 96.5 fL 81.0 - 99.0 fL [facility] MONOCYTES ABSOLUTE AUTO 0.8 [facility] Monocytes/100 WBC (Bld) 11.8 % 1.7 - 12.0 % [facility] NEUTROPHILS ABSOLUTE AUTO 2.9 [facility] Neutrophils/100 WBC (Bld) 44.5 % 43.0 - 75.0 % [facility] Platelet mean volume (Bld) [Entitic vol] 10.2 fL 9.5 - 13.5 fL [facility] TBH EO # 0.2 [facility] PLT 259 [facility] RBC 4.32 [facility] WBC 6.6 [facility] Activated partial thrombopla stin time (aPTT) in platelet poor plasma by coagulation aOrdered By: Candelaria Falk on 04-25-2023 aPTT Coag (PPP) [Time] 27.5 s 25.1-36.5 [facility] Comment on above: A hematocrit value g reater than 55% may lead to inaccurate results in coagulation testing. Patients having hematocrit values >55% require a special collection tube for coagulation studies. Please contact the laboratory at [phone] for redraw instructions. B-Type Natriuretic Peptideon 04-25-2023 Natriuretic peptide B (Bld) [Mass/Vol] 44.0 pg/mL Normal 5-100 [facility] Comment on above: Result Comment: PERF ORMED BY: [place] [address] PATHOLOGIST HOOP MAKER HELPER MACHINE YUSRA WHITE M.D. Performed By: #### P TT, BMP, CBC, HS TROP, PT, BNP #### [address] Basic Metabolic Panelon 04-12 Anion gap [Moles/Vol] 12.1 mmol/L Normal 6.0-15.0 [facility] Comment on above: Performed By: #### P TT, BMP, CBC, HS TROP, PT, BNP #### [address] Calcium [Mass/Vol] 9.5 mg/dL Normal 8.6-10.3 [facility] Comment on above: Performed By: #### P TT, BMP, CBC, HS TROP, PT, BNP #### [facility] [address] Chloride [Moles/Vol] 103 mmol/L Normal 98-107 [facility] Comment on above: Performed By: #### P TT, BMP, CBC, HS TROP, PT, BNP #### [address] CO2 [Moles/Vol] 27.0 mmol/L Normal 21.0-31.0 [facility] Comment on above: Performed By: #### P TT, BMP, CBC, HS TROP, PT, BNP #### [address] Creatinine [Mass/Vol] 0.81 mg/dL Normal 0.60-1.20 [facility] Comment on above: Performed By: #### P TT, BMP, CBC, HS TROP, PT, BNP #### [place] [address] [place] Creatinine Clr Calc Pharmacy 57.40 Normal [facility] Comment on above: Result Comment: PERF ORMED BY: [place] [address] PATHOLOGIST HOOP MAKER HELPER MACHINE YUSRA WHITE M.D. Performed By: #### P TT, BMP, CBC, HS TROP, PT, BNP #### [address] GFR/1.73 sq M.predicted MDRD (S/P/Bld) [Vol rate/Area] mL/min/{1.73_m2} Normal [facility] Comment on above: Performed By: #### P TT, BMP, CBC, HS TROP, PT, BNP #### [address] Glucose [Mass/Vol] 87 mg/dL Normal 70-100 [facility] Comment on above: Result Comment: [facility] Glucose Reference Range is dependent on time and content of last meal. Glucose of more than 200 mg/dL in a nonstressed, ambulatory subject supports the diagnosis of Diabetes Mellitus. ADA recommended reference range Performed By: #### P TT, BMP, CBC, HS TROP, PT, BNP #### [address] Potassium [Moles/Vol] 4.1 mmol/L Normal 3.5-5.1 [facility] Comment on above: Performed By: #### P TT, BMP, CBC, HS TROP, PT, BNP #### [place] [address] [place] Sodium [Moles/Vol] 138 mmol/L Normal 136-145 [facility] Comment on above: Performed By: #### P TT, BMP, CBC, HS TROP, PT, BNP #### [place] [address] [place] Urea nitrogen [Mass/Vol] 17 mg/dL Normal 7-25 [facility] Comment on above: Performed By: #### P TT, BMP, CBC, HS TROP, PT, BNP #### [place] [address] [place] Basophils Auto (Bld) [#/Vol] Ordered By: Candelaria Falk on 04-25-2023 Basophils (Bld) [#/Vol] 0.0 10*3/uL 0.0-0.2 [facility] Basophils/100 WBC Auto (Bld) Ordered By: Candelaria Falk on 04-25-2023 Basophils/100 WBC (Bld) 0.3 % . [facility] COVID CepheidOrdered By: Carie fortunato Falk on 04-25-2023 SARS-CoV-2 (COVID-19) Ab IA Ql Negative Negative [facility] Comment on above: This is a duplicate Cepheid Xpert Xpress CoV-2/Flu/RSV Plus RNA by RT-PCR result to be used for statistical tracking purpose only. SARS-CoV-2 (COVID-19) RNA CASSIDY+probe Ql (Unsp spec) [facility] COVID-19 / Flu A/B / RSV [...] or Cepheid Disclaimer revoked sooner. PERFORMED BY: [place] [address] PATHOLOGIST HOOP MAKER HELPER MACHINE YUSRA WHITE M.D. [facility] Comment on above: Performed By: #### C EPHEID NEG, COVID19 FLU RSV #### [address] head/brain wo conon 04-25 CT head/brain wo con [facility] Main [place] [address] [place] [address] CT Scan Report Signed Patient: Edilma Leonardo MR#: [id number] : 1955 Acct:[id number] Age/Sex: 67 / F ADM Date: 04/25/23 Loc: ER Room: Type: [facility] ER Attending Dr: Copies to: Candelaria [...] Lamin Park M.D.04/25/2023 9:04 PM Dictation Location: [place] [address] Transcribed By: [facility] 04/25/232103 Dictated By: Lamin Park II, MD 04/25/232101 Signed By: 04/25/232103 Normal [facility] Calcium [Mass/volume] in Ser um or PlasmaOrdered By: Candelaria Falk on 04-25-2023 Calcium [Mass/Vol] 9.5 mg/dL 8.6-10.3 [facility] Carbon dioxide, total [Moles /volume] in Serum or PlasmaOrdered By: Candelaria Falk on 04-25-2023 CO2 [Moles/Vol] 27.0 mmol/L 21.0-31.0 [facility] Cepheid COVID PCR Negativeon 04-25-2023 SARS-CoV-2 (COVID-19) RNA CASSIDY+probe Ql (Unsp spec) Negative Normal Negative [facility] Comment on above: Result Comment: This is a duplicate Cepheid Xpert Xpress CoV-2/Flu/RSV Plus RNA by RT-PCR result to be used for statistical tracking purpose only. PERFORMED BY: [place] [address] PATHOLOGIST HOOP MAKER HELPER MACHINE YUSRA WHITE M.D. Performed By: #### C EPHEID NEG, COVID19 FLU RSV #### [address] Chloride [Moles/volume] in S pawel or PlasmaOrdered By: Candelaria Falk on 12-14-2023 Chloride [Moles/Vol] 103 mmol/L 98-107 [facility] Complete Blood Count Auto Di ffon 04-25-2023 Basophils (Bld) [#/Vol] 0.0 10*3/uL Normal 0.0-0.2 [facility] Comment on above: Result Comment: PERF ORMED BY: [place] [address] PATHOLOGIST HOOP MAKER HELPER MACHINE YUSRA WHITE M.D. Performed By: #### P TT, BMP, CBC, HS TROP, PT, BNP #### [facility] [address] Basophils/100 WBC (Bld) 0.3 % Normal . [facility] Comment on above: Performed By: #### P TT, BMP, CBC, HS TROP, PT, BNP #### [address] Eosinophils (Bld) [#/Vol] 0.2 10*3/uL Normal 0.0-0.45 [facility] Comment on above: Performed By: #### P TT, BMP, CBC, HS TROP, PT, BNP #### [address] Eosinophils/100 WBC (Bld) 2.6 % Normal . [facility] Comment on above: Performed By: #### P TT, BMP, CBC, HS TROP, PT, BNP #### [address] Erythrocyte distribution width (RBC) [Ratio] 13.5 % Normal 11.9-15.3 [facility] Comment on above: Performed By: #### P TT, BMP, CBC, HS TROP, PT, BNP #### [address] Hematocrit (Bld) [Volume fraction] 42.5 % Normal 34.0-46.4 [facility] Comment on above: Performed By: #### P TT, BMP, CBC, HS TROP, PT, BNP #### [facility] [address] [place] [address] [place] Hemoglobin (Bld) [Mass/Vol] 14.4 g/dL Normal 11.8-15.4 [facility] Comment on above: Performed By: #### P TT, BMP, CBC, HS TROP, PT, BNP #### [address] Lymphocytes (Bld) [#/Vol] 2.9 10*3/uL Normal 1.00-4.8 [facility] Comment on above: Performed By: #### P TT, BMP, CBC, HS TROP, PT, BNP #### [address] Lymphocytes/100 WBC (Bld) 40.1 % Normal . [facility] Comment on above: Performed By: #### P TT, BMP, CBC, HS TROP, PT, BNP #### [address] MCH (RBC) [Entitic mass] 31.9 pg Normal 24.7-34.3 [facility] Comment on above: Performed By: #### P TT, BMP, CBC, HS TROP, PT, BNP #### [address] MCV (RBC) [Entitic vol] 93.8 fL Normal 80-100 [facility] Comment on above: Performed By: #### P TT, BMP, CBC, HS TROP, PT, BNP #### [address] Mean Corpuscular HGB Conc 34.0 g/dL Normal 32.0-35.0 [facility] Comment on above: Performed By: #### P TT, BMP, CBC, HS TROP, PT, BNP #### [place] [address] [place] Monocytes (Bld) [#/Vol] 0.6 10*3/uL Normal 0.0-0.8 [facility] Comment on above: Performed By: #### P TT, BMP, CBC, HS TROP, PT, BNP #### [address] Monocytes/100 WBC (Bld) 20.21 % High 0.00-20.00 [facility] Comment on above: Result Comment: For adults in ED, MDW > 20.0 may be associated with a higher risk of sepsis during the first 12 hrs of hospital admission Performed By: #### P TT, BMP, CBC, HS TROP, PT, BNP #### [address] Monocytes/100 WBC (Bld) 7.9 % Normal . [facility] Comment on above: Performed By: #### P TT, BMP, CBC, HS TROP, PT, BNP #### [address] Neutrophils (Bld) [#/Vol] 3.5 10*3/uL Normal 1.8-7.7 [facility] Comment on above: Performed By: #### P TT, BMP, CBC, HS TROP, PT, BNP #### [address] Neutrophils/100 WBC (Bld) 49.1 % Normal . [facility] Comment on above: Performed By: #### P TT, BMP, CBC, HS TROP, PT, BNP #### [address] NRBC% 0.0 /100{WBC} Normal 0-0.5 [facility] Comment on above: Performed By: #### P TT, BMP, CBC, HS TROP, PT, BNP #### [address] Platelet mean volume (Bld) [Entitic vol] 8.1 fL Normal 6.3-10.7 [facility] Comment on above: Performed By: #### P TT, BMP, CBC, HS TROP, PT, BNP #### [place] [address] [place] Platelets (Bld) [#/Vol] 247 10*3/uL Normal 150-450 [facility] Comment on above: Performed By: #### P TT, BMP, CBC, HS TROP, PT, BNP #### [address] [place] [address] [place] RBC (Bld) [#/Vol] 4.53 10*6/uL Normal 3.60-5.00 [facility] Comment on above: Performed By: #### P TT, BMP, CBC, HS TROP, PT, BNP #### [facility] [address] WBC (Bld) [#/Vol] 7.2 10*3/uL Normal 3.8-11.6 [facility] Comment on above: Performed By: #### P TT, BMP, CBC, HS TROP, PT, BNP #### [address] Creatinine [Mass/volume] in Serum or PlasmaOrdered By: Candelaria Falk on 04-25-2023 Creatinine [Mass/Vol] 0.81 mg/dL 0.60-1.20 [facility] ECG 12 lead ECGon 04-25-2023 ECG 12 lead ECG [facility] Main [place] [address] [place] [address] Electrocardiograph Report Signed Patient: Edilma Leonardo MR#: [id number] : 1955 Acct:[id number] Age/Sex: 67 / F ADM Date: 04/25/23 [...] sinus rhythm Confirmed by Santiago BLAKE DO ([id number]) on 04/25/2023 6:14:25 PM Referred By: Electronically Signed By:Santiago BLAKE DO Transcribed By: MUS Signed By Santiago Blake DO 1 06/26/221813 [facility] Eosinophils Auto (Bld) [#/Vo l]Ordered By: Candelaria Falk on 04-25-2023 Eosinophils (Bld) [#/Vol] 0.2 10*3/uL 0.0-0.45 [facility] Eosinophils/100 WBC Auto (Bl d)Ordered By: Candelaria Falk on 04-25-2023 Eosinophils/100 WBC (Bld) 2.6 % . [facility] Erythrocyte distribution wid th Auto (RBC) [Ratio]Ordered By: Candelaria Falk on 04-25-2023 Erythrocyte distribution width (RBC) [Ratio] 13.5 % 11.9-15.3 [facility] Glucose [Mass/volume] in Ser um or PlasmaOrdered By: Candelaria Falk on 04-25-2023 Glucose [Mass/Vol] 87 mg/dL 70-100 [facility] Comment on above: ADA recommended refe rence rangeRandom Glucose Reference Range is dependent on time and content of last meal. Glucose of more than 200 mg/dL in a nonstressed, ambulatory subject supports the diagnosis of Diabetes Mellitus. Hematocrit Auto (Bld) [Volum e fraction]Ordered By: Candelaria Falk on 04-25-2023 Hematocrit (Bld) [Volume fraction] 42.5 % 34.0-46.4 [facility] Hemoglobin [Mass/volume] in BloodOrdered By: Candelaria Falk on 04-25-2023 Hemoglobin (Bld) [Mass/Vol] 14.4 g/dL 11.8-15.4 [facility] INR in Platelet poor plasma by Coagulation assayOrdered By: Candelaria Falk on 04-25-2023 INR Coag (PPP) [Relative time] 1.0 {INR} [facility] Comment on above: INR Therapeutic Rang [...] RBC Auto (Bld) [#/Vol] 7.2 10*3/uL 3.8-11.6 [facility] Lymphocytes Auto (Bld) [#/Vo l]Ordered By: Candelaria Falk on 04-25-2023 Lymphocytes (Bld) [#/Vol] 2.9 10*3/uL 1.00-4.8 [facility] Lymphocytes/100 WBC Auto (Bl d)Ordered By: Candelaria Falk on 04-25-2023 Lymphocytes/100 WBC (Bld) 40.1 % . [facility] MCH Auto (RBC) [Entitic mass ]Ordered By: Candelaria Falk on 04-25-2023 MCH (RBC) [Entitic mass] 31.9 pg 24.7-34.3 [facility] MCHC Auto (RBC) [Mass/Vol]Or dered By: Candelaria Falk on 04-25-2023 MCHC (RBC) [Mass/Vol] 34.0 g/dL 32.0-35.0 [facility] MCV Auto (RBC) [Entitic vol] Ordered By: Candelaria Falk on 04-25-2023 MCV (RBC) [Entitic vol] 93.8 fL 80-100 [facility] Monocyte distribution width [Entitic volume] in Blood by AutomatedOrdered By: Candelaria Falk on 04-25-2023 Monocyte distribution width Auto (Bld) [Entitic vol] 20.21 % 0.00-20.00 [facility] Comment on above: For adults in ED, MD W > 20.0 may be associated with a higher risk of sepsis during the first 12 hrs of hospital admission Monocytes Auto (Bld) [#/Vol] Ordered By: Candelaria Falk on 04-25-2023 Monocytes (Bld) [#/Vol] 0.6 10*3/uL 0.0-0.8 [facility] Monocytes/100 WBC Auto (Bld) Ordered By: Candelaria Falk on 04-25-2023 Monocytes/100 WBC (Bld) 7.9 % . [facility] Natriuretic peptide B [Mass/ Vol]Ordered By: Candelaria Falk on 04-25-2023 Natriuretic peptide B (Bld) [Mass/Vol] 44.0 pg/mL 5-100 [facility] Neutrophils Auto (Bld) [#/Vo l]Ordered By: Candelaria Falk on 04-25-2023 Neutrophils (Bld) [#/Vol] 3.5 10*3/uL 1.8-7.7 [facility] Neutrophils/100 WBC Auto (Bl d)Ordered By: Candelaria Falk on 04-25-2023 Neutrophils/100 WBC (Bld) 49.1 % . [facility] No Panel InformationOrdered By: Candelaria Falk on 04-25-2023 Estimated GFR (CKD-EPI) > 60.0 mL/Min [facility] Creatinine Clearance (Chem 57.40 [facility] Nucleated erythrocytes [Pres ence] in Blood by Automated countOrdered By: Candelaria Falk on 04-25-2023 Nucleated RBC Auto Ql (Bld) 0.0 /100{WBC} 0-0.5 [facility] Partial Thromboplastin Timeo n 04-25-2023 aPTT Coag (Bld) [Time] 27.5 s Normal 25.1-36.5 [facility] Comment on above: Result Comment: A he matocrit value greater than 55% may lead to inaccurate results in coagulation testing. Patients having hematocrit values >55% require a special collection tube for coagulation studies. Please contact the laboratory at [phone] for redraw instructions. PERFORMED BY: [place] [id number] PATHOLOGIST HOOP MAKER HELPER MACHINE YUSRA WHITE M.D. Performed By: #### H S TROP #### [address] Platelet mean volume Auto (B ld) [Entitic vol]Ordered By: Candelaria Falk on 04-25-2023 Platelet mean volume (Bld) [Entitic vol] 8.1 fL 6.3-10.7 [facility] Platelets Auto (Bld) [#/Vol] Ordered By: Candelaria Falk on 04-25-2023 Platelets (Bld) [#/Vol] 247 10*3/uL 150-450 [facility] Potassium [Moles/volume] in Serum or PlasmaOrdered By: Candelaria Falk on 04-25-2023 Potassium [Moles/Vol] 4.1 mmol/L 3.5-5.1 [facility] Prothrombin Time INRon 04-25 INR Coag (PPP) [Relative time] 1.0 {INR} Normal [facility] Comment on above: Result Comment: INR [...] BMP, CBC, HS TROP, PT, BNP #### [facility] [address] PT Coag (PPP) [Time] 11.5 s Normal 9.0-12.9 [facility] Comment on above: Result Comment: A he matocrit value greater than 55% may lead to inaccurate results in coagulation testing. Patients having hematocrit values >55% require a special collection tube for coagulation studies. Please contact the laboratory at [phone] for redraw instructions. Performed By: #### P TT, BMP, CBC, HS TROP, PT, BNP #### [facility] [address] [place] [id number] [facility] Prothrombin time (PT)Ordered By: Candelaria Falk on 04-25-2023 PT Coag (PPP) [Time] 11.5 s 9.0-12.9 [facility] Comment on above: A hematocrit value g reater than 55% may lead to inaccurate results in coagulation testing. Patients having hematocrit values >55% require a special collection tube for coagulation studies. Please contact the laboratory at [phone] for redraw instructions. RBC Auto (Bld) [#/Vol]Ordere d By: Candelaria Falk on 04-25-2023 RBC (Bld) [#/Vol] 4.53 10*6/uL 3.60-5.00 [facility] Serum or plasma anion gap de terminationOrdered By: Candelaria Falk on 04-25-2023 Anion gap [Moles/Vol] 12.1 mmol/L 6.0-15.0 [facility] Sodium [Moles/volume] in Ser um or PlasmaOrdered By: Candelaria Falk on 04-25-2023 Sodium [Moles/Vol] 138 mmol/L 136-145 [facility] Troponin I High Sensitivityo n 04-25-2023 Troponin I High Sensitivity 3.8 pg/mL Normal 0.0-15.0 [facility] Comment on above: Result Comment: PERF ORMED BY: [place] [address] PATHOLOGIST HOOP MAK[employer] HELPER MACHINE YUSRA WHITE M.D. Performed By: #### H S TROP #### [facility] [address] [place] [address] Troponin I High Sensitivity 3.9 pg/mL Normal 0.0-15.0 [facility] Comment on above: Result Comment: PERF ORMED BY: [place] [address] PATHOLOGIST HOOP MAK[employer] HELPER MACHINE YUSRA WHITE M.D. Performed By: #### P TT, BMP, CBC, HS TROP, PT, BNP #### [facility] [address] [place] [address] Troponin I.cardiac [Mass/vol ume] in Serum or Plasma by Detection limit <= 0.01 ng/Ordered By: Candelaria Falk on 04-25-2023 Troponin I.cardiac DL <= 0.01 ng/mL [Mass/Vol] 3.8 pg/mL 0.0-15.0 [facility] Urea nitrogen [Mass/volume] in Serum or PlasmaOrdered By: Candelaria Falk on 04-25-2023 Urea nitrogen [Mass/Vol] 17 mg/dL 7-25 [facility] WBC Auto (Bld) [#/Vol]Ordere d By: Candelaria Falk on 04-25-2023 WBC (Bld) [#/Vol] 7.2 10*3/uL 3.8-11.6 [facility] XR chest 2V*on 04-25-2023 XR chest 2V* [facility] Main [address] [address] XRay Report Signed Patient: Edilma Lenoardo MR#: [id number] : 1955 Acct:[id number] Age/Sex: 67 / F ADM Date: 04/25/23 Loc: ER Room: Type: [facility] ER Attending Dr: Copies to: Candelaria [...] Lamin Park M.D.04/25/2023 6:34 PM Dictation Location: [place] [address] Transcribed By: [facility] 04/25/231833 Dictated By: Lamin Park II, MD 04/25/231832 Signed By: 04/25/231833 Normal [facility] CBC W MANUAL DIFFon 07-28-19 23 ATYPICAL LYMPH # Normal [facility] Comment on above: Performed By: #### F T3, ALT, AST, BMP, TSH, LIPID #### [facility] [address] [place] [address] [address] Reji Pickett ATYPICAL LYMPH % Normal [facility] Comment on above: Performed By: #### F T3, ALT, AST, BMP, TSH, LIPID #### [facility] [address] [place], [place] [address] Dr. Reji Pickett BAND # Normal 0.0-0.3 [facility] Comment on above: Performed By: #### F T3, ALT, AST, BMP, TSH, LIPID #### [facility] [address] [place] [address] [address] Reji Pickett BAND % Normal 0-5 [facility] Comment on above: Performed By: #### F T3, ALT, AST, BMP, TSH, LIPID #### [facility] [address] [place] [address] [address] Reji Pickett BASOM # 0.00 103/ul Normal 0.00-0.10 [facility] Comment on above: Performed By: #### F T3, ALT, AST, BMP, TSH, LIPID #### [facility] [address] [place] [address] Dr. Reji Pickett BASOM % 0.0 % Critically low 0.2-2.0 [facility] Comment on above: Performed By: #### F T3, ALT, AST, BMP, TSH, LIPID #### [facility] [address] [place] [address] Dr. Reji Pickett BLAST # Normal [facility] Comment on above: Performed By: #### F T3, ALT, AST, BMP, TSH, LIPID #### [facility] [address] [place] [address] Dr. Reji Pickett BLAST % Normal [facility] Comment on above: Performed By: #### F T3, ALT, AST, BMP, TSH, LIPID #### [facility] [address] [place] [address] Dr. Reji Pickett CORRECTED WBC Normal 4.0-11.0 [facility] Comment on above: Performed By: #### F T3, ALT, AST, BMP, TSH, LIPID #### [facility] [address] [place] [address] Dr. Reji Pickett EOS # 0.10 103/ul Normal 0.00-0.70 [facility] Comment on above: Performed By: #### F T3, ALT, AST, BMP, TSH, LIPID #### [facility] [address] [place] [address] Dr. Reji Pickett EOS% 1.0 % Normal 0.9-7.0 [facility] Comment on above: Performed By: #### F T3, ALT, AST, BMP, TSH, LIPID #### [facility] [address] [place] [address] [address] Reji Pickett HCT 41.1 % Normal 36.0-48.0 [facility] Comment on above: Performed By: #### F T3, ALT, AST, BMP, TSH, LIPID #### [facility] [address] [place] [address] Dr. Reji Pickett HGB 13.6 g/dl Normal 12.0-16.0 [facility] Comment on above: Performed By: #### F T3, ALT, AST, BMP, TSH, LIPID #### [facility] [address] [place] [address] Dr. Reji Pickett LYMPHM # 0.40 103/ul Critically low 1.20-3.80 [facility] Comment on above: Performed By: #### F T3, ALT, AST, BMP, TSH, LIPID #### [facility] [address] [place] [address] Dr. Reji Pickett LYMPHM% 4.0 % Critically low 20.5-60.0 [facility] Comment on above: Performed By: #### F T3, ALT, AST, BMP, TSH, LIPID #### [facility] [address] [place] [address] Dr. Reji Pickett MCH 31.3 pg Normal 26.7-34.0 [facility] Comment on above: Performed By: #### F T3, ALT, AST, BMP, TSH, LIPID #### [facility] [address] [place] [address] Dr. Reji Pickett MCHC 33.1 g/dl Normal 29.9-35.2 [facility] Comment on above: Performed By: #### F T3, ALT, AST, BMP, TSH, LIPID #### [facility] [address] [place] [address] Dr. Reji Pickett MCV 94.5 fL Normal 81.0-99.0 [facility] Comment on above: Performed By: #### F T3, ALT, AST, BMP, TSH, LIPID #### [facility] [address] [address] [address] Reji Pickett METAMYELOCYTE # Normal [facility] Comment on above: Performed By: #### F T3, ALT, AST, BMP, TSH, LIPID #### [facility] [address] [place] [address] Dr. Reji Pickett METAMYELOCYTE % Normal [facility] Comment on above: Performed By: #### F T3, ALT, AST, BMP, TSH, LIPID #### [facility] [address] [address] [address] Reji Pickett MONOM# 0.61 103/ul Normal 0.30-0.80 [facility] Comment on above: Performed By: #### F T3, ALT, AST, BMP, TSH, LIPID #### [facility] [address] [place] [address] Dr. Reji Pickett MONOM% 6.0 % Normal 1.7-12.0 [facility] Comment on above: Performed By: #### F T3, ALT, AST, BMP, TSH, LIPID #### [facility] [address] [place] [address] Dr. Reji Pickett MPV 9.8 fL Normal 9.5-13.5 [facility] Comment on above: Performed By: #### F T3, ALT, AST, BMP, TSH, LIPID #### [facility] [address] [place] [address] Dr. Reji Pickett MYELOCYTE # Normal [facility] Comment on above: Performed By: #### F T3, ALT, AST, BMP, TSH, LIPID #### [facility] [address] [place] [address] Dr. Reji Pickett MYELOCYTE % Normal [facility] Comment on above: Performed By: #### F T3, ALT, AST, BMP, TSH, LIPID #### [facility] [address] [place] [address] Dr. Reji Pickett NRBC Normal [facility] Comment on above: Performed By: #### F T3, ALT, AST, BMP, TSH, LIPID #### [facility] [address] [place] [address] Dr. Reji Pickett PLT 191 103/ul Normal 150-450 [facility] Comment on above: Performed By: #### F T3, ALT, AST, BMP, TSH, LIPID #### [facility] [address] [address] [address] Reji Pickett RBC 4.35 106/ul Normal 4.20-5.40 [facility] Comment on above: Performed By: #### F T3, ALT, AST, BMP, TSH, LIPID #### [facility] [address] [address] [address] Reji Pickett RDW 13.7 % Normal 11.0-15.0 [facility] Comment on above: Performed By: #### F T3, ALT, AST, BMP, TSH, LIPID #### [facility] [address] [address] [address] Reji Pickett SEG # 8.99 103/ul Critically high 1.40-6.50 [facility] Comment on above: Performed By: #### F T3, ALT, AST, BMP, TSH, LIPID #### [facility] [address] [address] [address] Reji Pickett SEG % 89.0 % Critically high 43.0-75.0 [facility] Comment on above: Performed By: #### F T3, ALT, AST, BMP, TSH, LIPID #### [facility] [address] [address] [address] Reji Pickett WBC 10.1 103/ul Normal 4.0-11.0 [facility] Comment on above: Performed By: #### F T3, ALT, AST, BMP, TSH, LIPID #### [facility] [address] [address] [address] Reji Pickett CPKon 07-27-2022 CK [Catalytic activity/Vol] 53 U/L Normal 26-192 [facility] Comment on above: Performed By: #### F T3, ALT, AST, BMP, TSH, LIPID #### [facility] [address] [address] [address] Reji Pickett ER URINE PROFILEon 3 Bilirubin Ql (U) Negative Normal NEGATIVE [facility] Comment on above: Performed By: #### E RUR #### [facility] [address] [place] [address] Dr. Reji Pickett Clarity (U) CLEAR Normal CLEAR [facility] Comment on above: Performed By: #### E RUR #### [facility] [address] [place] [address] Dr. Reji Pickett Color (U) LT. YELLOW Normal YELLOW [facility] Comment on above: Performed By: #### E RUR #### [facility] [address] [place] [address] Dr. Reji Pickett ERUAHD A micrscopic examina tion will be performed if indicated. Normal [facility] Comment on above: Performed By: #### E RUR #### [facility] [address] [place] [address] Dr. Reji Pickett Glucose Ql (U) Negative Normal NEGATIVE [facility] Comment on above: Performed By: #### E RUR #### [facility] [address] [place] [address] Dr. Reji Pickett Hemoglobin Ql (U) Negative Normal NEGATIVE [facility] Comment on above: Performed By: #### E RUR #### [facility] [address] [place] [address] Dr. Reji Pickett Ketones Ql (U) TRACE Abnormal NEGATIVE [facility] Comment on above: Performed By: #### E RUR #### [facility] [address] [place] [address] Dr. Reji Pickett LEUKOCYTES Negative Normal NEGATIVE [facility] Comment on above: Performed By: #### E RUR #### [facility] [address] [place] [address] Dr. Reji Pickett Nitrite Ql (U) Negative Normal NEGATIVE [facility] Comment on above: Performed By: #### E RUR #### [facility] [address] [place] [address] Dr. Reji Pickett pH (U) 6.0 [pH] Normal 5-9 [facility] Comment on above: Performed By: #### E RUR #### [facility] [address] [place] [address] Dr. Reji Pickett SPEC GRAVITY 1.020 Normal 1.005-<=1. 025 [facility] Comment on above: Performed By: #### E RUR #### [facility] [address] [place] [address] Dr. Reji Pickett UA PROTEIN Negative Normal NEGATIVE/ TRACE [facility] Comment on above: Performed By: #### E RUR #### [facility] [address] [place] [address] Dr. Reji Pickett UR MICRO IND NOT INDICATED Normal [facility] Comment on above: Performed By: #### E RUR #### [facility] [address] [place] [address] Dr. Reji Pickett Urobilinogen Qn (U) 0.2 {Yamile'U}/dL Normal 0.2 - 1. 0 [facility] Comment on above: Performed By: #### E RUR #### [facility] [address] [place] [address] Dr. Reji Pickett LIPASEon 07-27-2022 Lipase [Catalytic activity/Vol] 138.0 U/L Normal 73.0-393.0 [facility] Comment on above: Performed By: #### F T3, ALT, AST, BMP, TSH, LIPID #### [facility] [address] [place] [address] Dr. Reji Pickett PROF 14(COMP METB)on 023 Albumin [Mass/Vol] 3.8 g/dL Normal 3.4-5.0 [facility] Comment on above: Performed By: #### F T3, ALT, AST, BMP, TSH, LIPID #### [facility] [address] [place] [address] Dr. Reji Pickett Albumin/Globulin [Mass ratio] 1.4 {ratio} Normal [facility] Comment on above: Performed By: #### F T3, ALT, AST, BMP, TSH, LIPID #### [facility] [address] [place] [address] Dr. Reji Pickett ALP [Catalytic activity/Vol] 74 U/L Normal 46-116 [facility] Comment on above: Performed By: #### F T3, ALT, AST, BMP, TSH, LIPID #### [facility] [address] [address] [address] Reji Pickett ALT [Catalytic activity/Vol] 36 U/L Normal 14-59 [facility] Comment on above: Performed By: #### F T3, ALT, AST, BMP, TSH, LIPID #### [facility] [address] [place] [address] Dr. Reji Pickett Anion gap [Moles/Vol] 14.1 mmol/L Normal Th e [facility] Comment on above: Performed By: #### F T3, ALT, AST, BMP, TSH, LIPID #### [facility] [address] [place] [address] Dr. Reji Pickett AST [Catalytic activity/Vol] 25 U/L Normal 15-37 [facility] Comment on above: Performed By: #### F T3, ALT, AST, BMP, TSH, LIPID #### [facility] [address] [place] [address] Dr. Reji Pickett Bilirubin [Mass/Vol] 0.8 mg/dL Normal 0.2-1.0 [facility] Comment on above: Performed By: #### F T3, ALT, AST, BMP, TSH, LIPID #### [facility] [address] [place] [address] Dr. Reji Pickett Calcium [Mass/Vol] 8.7 mg/dL Normal 8.5-10.1 [facility] Comment on above: Performed By: #### F T3, ALT, AST, BMP, TSH, LIPID #### [facility] [address] [address] [address] Reji Pickett Chloride [Moles/Vol] 111 mmol/L Critically high 98-107 [facility] Comment on above: Performed By: #### F T3, ALT, AST, BMP, TSH, LIPID #### [facility] [address] [address] [address] Reji Pickett CO2 [Moles/Vol] 22.7 mmol/L Normal 21.0-32.0 [facility] Comment on above: Performed By: #### F T3, ALT, AST, BMP, TSH, LIPID #### [facility] [address] [place] [address] Dr. Reji Pickett Creatinine [Mass/Vol] 0.79 mg/dL Normal 0.55-1.02 [facility] Comment on above: Performed By: #### F T3, ALT, AST, BMP, TSH, LIPID #### [facility] [address] [place] [address] Dr. Reji Pickett EGFR-AF URUGUAYAN >60 Normal >=60 [facility] Comment on above: Performed By: #### F T3, ALT, AST, BMP, TSH, LIPID #### [facility] [address] [place] [address] Dr. Reji Pickett EGFR-NON AF URUGUAYAN >60 Normal >=60 [facility] Comment on above: Performed By: #### F T3, ALT, AST, BMP, TSH, LIPID #### [facility] [address] [place] [address] Dr. Reji Pickett Globulin (S) [Mass/Vol] 2.7 g/dL Normal [facility] Comment on above: Performed By: #### F T3, ALT, AST, BMP, TSH, LIPID #### [facility] [address] [place] [address] Dr. Reji Pickett Glucose [Mass/Vol] 94 mg/dL Normal 74-106 [facility] Comment on above: Performed By: #### F T3, ALT, AST, BMP, TSH, LIPID #### [facility] [address] [place] [address] Dr. Reji Pikcett Potassium [Moles/Vol] 4.8 mmol/L Normal 3.5-5.1 [facility] Comment on above: Performed By: #### F T3, ALT, AST, BMP, TSH, LIPID #### [facility] [address] [place] [address] Dr. Reji Pickett Protein [Mass/Vol] 6.5 g/dL Normal 6.4-8.2 [facility] Comment on above: Performed By: #### F T3, ALT, AST, BMP, TSH, LIPID #### [facility] [address] [address] [address] Reji Pickett Sodium [Moles/Vol] 143 mmol/L Normal 136-145 [facility] Comment on above: Performed By: #### F T3, ALT, AST, BMP, TSH, LIPID #### [facility] [address] [address] [address] Reji Pickett Urea nitrogen [Mass/Vol] 20.0 mg/dL Critically high 7.0-18.0 [facility] Comment on above: Performed By: #### F T3, ALT, AST, BMP, TSH, LIPID #### [facility] [address] [address] [address] Reji Pickett Urea nitrogen/Creatinine [Mass ratio] 25.3 mg/mg Normal [facility] Comment on above: Performed By: #### F T3, ALT, AST, BMP, TSH, LIPID #### [facility] [address] [address] [address] Reji Pickett TROPONIN, HIGH SENSITIVITYon 07-27-2022 HSTROP 4.5 pg/mL Normal 4.0-51.3 [facility] Comment on above: Result Comment: CUT- OFF POINTS HAVE BEEN ESTABLISHED BASED ON THE FOURTH UNIVERSAL DEFINITIONS OF MYOCARDIAL INFARCTION. THE UPPER REFERENCE LIMIT (URL) OF TROPONIN, DEFINED THE 99TH PERCENTILE OF cTnI DISTRIBUTION IN A REFERENCE POPULATION, HAS BEEN CONFIRMED THE DECISION THRESHOLD FOR AR DIAGNOSIS. Performed By: #### F T3, ALT, AST, BMP, TSH, LIPID #### [facility] [address] [place] [address] CHEST WO CONon [...] JIMENEZ OLIVA Date: 2021-10-31 11:54 Normal [facility] MAMM SCREEN 3D TACO CADon 10-31-2021 MAMM SCREEN 3D TACO CAD Patient: EDILMA LEONARDO Exam Date: 10/31/2021 : 1955 Gender:F Ordering : DR OLU JOHNSON . Admission #: [id number] Family : Order #: [id number] CLICK HERE TO VIEW EXAM RADIOLOGY REPORT PROCEDURE: MAMMOGRAM SCREENING 3D BILATERAL CAD COMPARISON: MAMM SCREEN TACO W CAD, 10/27/2019. MG [...] throat cancer at age 81. LOCATION: [facility] BREAST COMPOSITION: Heterogeneously dense,which may obscure small [...] MD on 10/31/2021 at 13:49 Normal [facility] CBC AUTO DIFFon 10-18-2021 BASO # 0.1 103/ul Normal 0.0-0.1 [facility] Comment on above: Performed By: #### F T3, ALT, AST, BMP, TSH, LIPID #### [facility] [address] [place] [address] Dr. Reji Pickett Basophils/100 WBC (Bld) 1.2 % Normal 0.2-2.0 [facility] Comment on above: Performed By: #### F T3, ALT, AST, BMP, TSH, LIPID #### [facility] [address] [place] [address] Dr. Reji Pickett EO # 0.1 103/ul Normal 0.0-0.7 [facility] Comment on above: Performed By: #### F T3, ALT, AST, BMP, TSH, LIPID #### [facility] [address] [place] [address] Dr. Rjei Pickett Eosinophils/100 WBC (Bld) 2.3 % Normal 0.9-7.0 [facility] Comment on above: Performed By: #### F T3, ALT, AST, BMP, TSH, LIPID #### [facility] [address] [place] [address] Dr. Reji Pickett Erythrocyte distribution width (RBC) [Ratio] 14.3 % Normal 11.0-15.0 [facility] Comment on above: Performed By: #### F T3, ALT, AST, BMP, TSH, LIPID #### [facility] [address] [place] [address] Dr. Reji Pickett Hematocrit (Bld) [Volume fraction] 40.6 % Normal 36.0-48.0 [facility] Comment on above: Performed By: #### F T3, ALT, AST, BMP, TSH, LIPID #### [facility] [address] [place] [address] Dr. Reji Pickett Hemoglobin (Bld) [Mass/Vol] 12.6 g/dL Normal 12.0-16.0 [facility] Comment on above: Performed By: #### F T3, ALT, AST, BMP, TSH, LIPID #### [facility] [address] [place] [address] Dr. Reji Pickett IG # 0.01 10e3/ul Normal 0.00-0.03 [facility] Comment on above: Performed By: #### F T3, ALT, AST, BMP, TSH, LIPID #### [facility] [address] [place] [address] Dr. Reji Pickett IG % 0.2 % Normal 0.0-0.5 [facility] Comment on above: Performed By: #### F T3, ALT, AST, BMP, TSH, LIPID #### [facility] [address] [place] [address] Dr. Reji Pickett LYMPH # 2.2 103/ul Normal 1.2-3.8 [facility] Comment on above: Performed By: #### F T3, ALT, AST, BMP, TSH, LIPID #### [facility] [address] [place] [address] Dr. Reji Pickett Lymphocytes/100 WBC (Bld) 39.1 % Normal 20.5-60.0 [facility] Comment on above: Performed By: #### F T3, ALT, AST, BMP, TSH, LIPID #### [facility] [address] [place] [address] Dr. Reji Pickett MANUAL DIFF REQ NO Normal [facility] Comment on above: Performed By: #### F T3, ALT, AST, BMP, TSH, LIPID #### [facility] [address] [place] [address] Dr. Reji Pickett MCH (RBC) [Entitic mass] 31.0 pg Normal 26.7-34.0 [facility] Comment on above: Performed By: #### F T3, ALT, AST, BMP, TSH, LIPID #### [facility] [address] [place] [address] Dr. Reji Pickett MCHC (RBC) [Mass/Vol] 31.0 g/dL Normal 29.9-35.2 [facility] Comment on above: Performed By: #### F T3, ALT, AST, BMP, TSH, LIPID #### [facility] [address] [place] [address] Dr. Reji Pickett MCV (RBC) [Entitic vol] 99.8 fL Critically high 81.0-99.0 [facility] Comment on above: Performed By: #### F T3, ALT, AST, BMP, TSH, LIPID #### [facility] [address] [place] [address] Dr. Reji Pickett MONO # 0.6 103/ul Normal 0.3-0.8 [facility] Comment on above: Performed By: #### F T3, ALT, AST, BMP, TSH, LIPID #### [facility] [address] [place] [address] Dr. Reji Pickett Monocytes/100 WBC (Bld) 10.5 % Normal 1.7-12.0 [facility] Comment on above: Performed By: #### F T3, ALT, AST, BMP, TSH, LIPID #### [facility] [address] [place] [address] Dr. Reji Pickett NEUT # 2.7 103/ul Normal 1.4-6.5 [facility] Comment on above: Performed By: #### F T3, ALT, AST, BMP, TSH, LIPID #### [facility] [address] [place] [address] Dr. Reji Pickett Neutrophils/100 WBC (Bld) 46.7 % Normal 43.0-75.0 [facility] Comment on above: Performed By: #### F T3, ALT, AST, BMP, TSH, LIPID #### [facility] [address] [place] [address] Dr. Reji Pickett Platelet mean volume (Bld) [Entitic vol] 11.2 fL Normal 9.5-13.5 [facility] Comment on above: Performed By: #### F T3, ALT, AST, BMP, TSH, LIPID #### [facility] [address] [place] [address] Dr. Reji Pickett PLT 242 103/ul Normal 150-450 [facility] Comment on above: Performed By: #### F T3, ALT, AST, BMP, TSH, LIPID #### [facility] [address] [address] [address] Reji Pickett RBC 4.07 106/ul Critically low 4.20-5.40 [facility] Comment on above: Performed By: #### F T3, ALT, AST, BMP, TSH, LIPID #### [facility] [address] [place] [address] Dr. Reji Pickett WBC 5.7 103/ul Normal 4.0-11.0 [facility] Comment on above: Performed By: #### F T3, ALT, AST, BMP, TSH, LIPID #### [facility] [address] [place] [address] Dr. Reji Pickett FREE T3on 10-18-2021 FREE T3 1.91 pg/mlL Critically low 2.18-3.98 [facility] Comment on above: Performed By: #### F T3, ALT, AST, BMP, TSH, LIPID #### [facility] [address] [place] [address] Dr. Reji Pickett FREE T4on 10-18-2021 Free T4 [Mass/Vol] 1.06 ng/dL Normal 0.76-1.46 [facility] Comment on above: Performed By: #### F T4 #### [facility] [address] [place] [address] Dr. Reji Pickett LIPID PROFILEon 10-18-2021 CHOL-HDL RATIO NORM SEE BELOW Normal [facility] Comment on above: Result Comment: 3.3 - 4.4 LOW RISK 4.4 - 7.1 AVERAGE RISK 7.1 - 11.0 MODERATE RISK >11.0 HIGH RISK Performed By: #### F T3, ALT, AST, BMP, TSH, LIPID #### [facility] [address] [place] [address] Dr. Reji Pickett Cholesterol [Mass/Vol] 181 mg/dL Normal <=200 [facility] Comment on above: Performed By: #### F T3, ALT, AST, BMP, TSH, LIPID #### [facility] [address] [place] [address] Dr. Reji Pickett Cholesterol in HDL [Mass/Vol] 69 mg/dL Critically high 40-60 [facility] Comment on above: Performed By: #### F T3, ALT, AST, BMP, TSH, LIPID #### [facility] [address] [address] [address] Reji Pickett Cholesterol in LDL [Mass/Vol] 97.4 mg/dL Normal [facility] Comment on above: Performed By: #### F T3, ALT, AST, BMP, TSH, LIPID #### [facility] [address] [address] [address] Reji Pickett Cholesterol.total/Chol esterol in HDL [Mass ratio] 2.6 {ratio} Normal [facility] Comment on above: Performed By: #### F T3, ALT, AST, BMP, TSH, LIPID #### [facility] [address] [place] [address] Dr. Reji Pickett HDL NORMAL > or = 60 mg/dl - LO W CARDIOVASCULAR RISK <40 mg/dl - HIGH CARDIOVASCULAR RISK Normal [facility] Comment on above: Performed By: #### F T3, ALT, AST, BMP, TSH, LIPID #### [facility] [address] [address] [address] Reji Pickett LDL CALC NORMAL SEE BELOW Normal [facility] Comment on above: Result Comment: <100 mg/dl OPTIMAL 100 - 129 mg/dl NEAR OR ABOVE OPTIMAL 130 - 159 mg/dl BORDERLINE HIGH 160 - 189 mg/dl HIGH >190 mg/dl VERY HIGH Performed By: #### F T3, ALT, AST, BMP, TSH, LIPID #### [facility] [address] [address] [address] Reji Pickett Triglyceride [Mass/Vol] 73 mg/dL Normal <=150 [facility] Comment on above: Performed By: #### F T3, ALT, AST, BMP, TSH, LIPID #### [facility] [address] [address] [address] Reji Pickett VLDL CALC 14.6 mg/dL Normal [facility] Comment on above: Performed By: #### F T3, ALT, AST, BMP, TSH, LIPID #### [facility] [address] [place] [address] Dr. Reji Pickett PROF CHEM 8 (BAS METB)on Anion gap [Moles/Vol] 14.1 mmol/L Normal Th e [facility] Comment on above: Performed By: #### F T3, ALT, AST, BMP, TSH, LIPID #### [facility] [address] [place] [address] Dr. Reji Pickett Calcium [Mass/Vol] 9.1 mg/dL Normal 8.5-10.1 [facility] Comment on above: Performed By: #### F T3, ALT, AST, BMP, TSH, LIPID #### [facility] [address] [place] [address] Dr. Reji Pickett Chloride [Moles/Vol] 105 mmol/L Normal 98-107 [facility] Comment on above: Performed By: #### F T3, ALT, AST, BMP, TSH, LIPID #### [facility] [address] [place] [address] Dr. Reji Pickett CO2 [Moles/Vol] 27.0 mmol/L Normal 21.0-32.0 [facility] Comment on above: Performed By: #### F T3, ALT, AST, BMP, TSH, LIPID #### [facility] [address] [place] [address] Dr. Reji Pickett Creatinine [Mass/Vol] 0.78 mg/dL Normal 0.55-1.02 [facility] Comment on above: Performed By: #### F T3, ALT, AST, BMP, TSH, LIPID #### [facility] [address] [place] [address] Dr. Reji Pickett EGFR-AF URUGUAYAN Normal >=60 [facility] Comment on above: Performed By: #### F T3, ALT, AST, BMP, TSH, LIPID #### [facility] [address] [place] [address] Dr. Reji Pickett EGFR-NON AF URUGUAYAN Normal >=60 [facility] Comment on above: Performed By: #### F T3, ALT, AST, BMP, TSH, LIPID #### [facility] [address] [place] [address] Dr. Reji Pickett Glucose [Mass/Vol] 74 mg/dL Normal 74-106 [facility] Comment on above: Performed By: #### F T3, ALT, AST, BMP, TSH, LIPID #### [facility] [address] [place] [address] Dr. Reji Pickett Potassium [Moles/Vol] 4.1 mmol/L Normal 3.5-5.1 [facility] Comment on above: Performed By: #### F T3, ALT, AST, BMP, TSH, LIPID #### [facility] [address] [place] [address] Dr. Reji Pickett Sodium [Moles/Vol] 142 mmol/L Normal 136-145 [facility] Comment on above: Performed By: #### F T3, ALT, AST, BMP, TSH, LIPID #### [facility] [address] [place] [address] Dr. Reji Pickett Urea nitrogen [Mass/Vol] 15.0 mg/dL Normal 7.0-18.0 [facility] Comment on above: Performed By: #### F T3, ALT, AST, BMP, TSH, LIPID #### [facility] [address] [place] [address] Dr. Reij Pickett Urea nitrogen/Creatinine [Mass ratio] 19.2 mg/mg Normal [facility] Comment on above: Performed By: #### F T3, ALT, AST, BMP, TSH, LIPID #### [facility] [address] [place] [address] Dr. Reji Leyva 10-18-2021 AST [Catalytic activity/Vol] 33 U/L Normal 15-37 [facility] Comment on above: Performed By: #### F T3, ALT, AST, BMP, TSH, LIPID #### [facility] [address] [place] [address] Dr. Reji Lopez 10-18-2021 ALT [Catalytic activity/Vol] 59 U/L Normal 14-59 [facility] Comment on above: Performed By: #### F T3, ALT, AST, BMP, TSH, LIPID #### [facility] [address] [place], [place] [address] Dr. Reji Pickett TSHon 10-18-2021 TSH 1.079 uIU/mL Normal 0.358-3.74 0 [facility] Comment on above: Performed By: #### F T3, ALT, AST, BMP, TSH, LIPID #### [facility] [address] [place], [place] [address] Dr. Reji Pickett TSH RANGE SEE BELOW Normal [facility] Comment on above: Result Comment: <0.3 4 UIU/ml HYPERTHYROID 0.34-5.60 UIU/ml EUTHYROID >5.60 UIU/ml HYPOTHYROID Performed By: #### F T3, ALT, AST, BMP, TSH, LIPID #### [facility] [address] [place] [id number] Reji Pickett Vital Signs Date Time Vital Sign Value Performing Clinician Faci lity 04-25-2023 21:50-0500 Body temperature 97.5 [degF] 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 Candelaria [employer] Work Phone: [facility] 04-25-2023 21:50-0500 Diastolic blood pressure 71 mm[Hg] 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 Candelaria [employer] Work Phone: [facility] 04-25-2023 21:50-0500 Heart rate 59 /min 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 Candelaria [employer] Work Phone: [facility] 04-25-2023 21:50-0500 Respiratory rate 20 /min 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 Candelaria [employer] Work Phone: [facility] 04-25-2023 21:50-0500 SaO2% (BldA) [Mass fraction] 95 % 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 Candelaria [employer] Work Phone: [facility] 04-25-2023 21:50-0500 Systolic blood pressure 134 mm[Hg] 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 Candelaria [employer] Work Phone: [facility] 04-25-2023 17:23-0500 Body height 162.56 cm 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 Candelaria Saffle Work Phone: [facility] 04-25-2023 17:49-7689 Body weight 63.4 kg CECILY Falk Work Phone: [facility] Encounters Encounter Date Encounter Type Care Provider Facility Start: 10-16-2023 End: 10-16-2023 ambulatory LAURE AICHHOLZ Not Available Start: 09-23-2023 End: 09-23-2023 ambulatory LAURE AICHHOLZ Not Available Start: 08-21-2023 End: 08-21-2023 ambulatory LAURE AICHHOLZ Not Available Start: 07-15-2023 End: 07-15-2023 ambulatory GARY CEBALLOS Not Available Start: 07-10-2023 End: 07-10-2023 ambulatory LAURE AICHHOLZ Not Available Start: 06-26-2023 Bamboo flowsheet Bhakti hdz PT Work Phone: [facility] Start: 06-26-2023 Bamboo flowsheet Bhakti hdz PT Work Phone: [facility] Start: 06-26-2023 End: 06-26-2023 ambulatory Bhakti Prasad PT Work Phone: [facility] Comment on above: Radiculopathy affect ing upper extremity (Primary Dx); Lateral epicondylitis of left elbow Start: 06-25-2023 Clinisync Result Encounter Generic External Data Provider [facility] Unsolicited Start: 06-25-2023 Clinisync Result Encounter Generic External Data Provider [facility] Unsolicited Start: 06-24-2023 Bamboo flowsheet Yemi Stern PERMIT AGENT [facility] Start: 06-24-2023 Bamboo flowsheet Yemi Brink PERMIT AGENT [facility] Start: 06-24-2023 End: 06-24-2023 ambulatory Yemi Stern PERMIT AGENT [facility] Comment on above: Radiculopathy affect ing upper extremity (Primary Dx); Lateral epicondylitis of left elbow Start: 06-20-2023 End: 06-20-2023 ambulatory YEMI STERN Not Available Start: 06-18-2023 End: 06-18-2023 ambulatory YEMI STERN Not Available Start: 06-17-2023 End: 06-17-2023 ambulatory LAURE AICHHOLZ Not Available Start: 06-17-2023 Patient encounter procedure Yemi Stern PERMIT AGENT [facility] Start: 06-13-2023 End: 06-13-2023 ambulatory Blanca Pollard PERMIT AGENT [facility] Comment on above: Radiculopathy affect ing upper extremity (Primary Dx); Lateral epicondylitis of left elbow Start: 06-11-2023 End: 06-11-2023 ambulatory BHAKTI PRASAD Not Available Start: 05-20-2023 End: 05-20-2023 ambulatory LAURE AICHHOLZ Not Available Start: 05-01-2023 End: 05-01-2023 ambulatory LAURE AICHHOLZ Not Available Start: 04-25-2023 End: 04-26-2023 Emergency department patient visit Candelaria Falk Facility:[facility] Start: 04-25-2023 End: 04-25-2023 Emergency department patient visit CECILY Falk Work Phone: [facility] Work Phone: Start: 07-27-2022 End: 07-27-[address] OLU JOHNSON Facility:[facility] Start: 10-31-2021 End: 11-01-[address] OLU JOHNSON Facility:[facility] Start: 10-18-2021 End: 10-19-[address] OLU JOHNSON Facility:[facility] Procedures Date Procedure Procedure Detail Performing Clinician Start: 06-25-2023 ALL CBC WITH AUTO DIFF Generic External Data Provider Start: 05-22-2023 Mammography Blanca chirinos PERMIT AGENT Start: 04-25-2023 CT of head without contrast 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 Candelaria Falk Work Phone: Start: 04-25-2023 Plain chest X-ray CECILY Falk Work Phone: Start: 04-25-2023 SARS-CoV-2, Influenz a & RSV (PCR) 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 Candelaria Falk Work Phone: Start: 12-07-2019 Colonoscopy Blanca Ayden chirinos PERMIT AGENT Plan of Treatment Date Care Activity Detail Author Start: 12-06-2029 Screening for malignant neoplasm of colon [facility] Start: 06-17-2024 Medicare Annual Wellness (AWV) Medicare Annual Wellness (AWV) [facility] Start: 05-22-2024 Screening for malignant neoplasm of breast Mammogram [facility] Start: 07-10-2023 End: 07-10-2023 Patient encounter procedure 07/10/2023 9:00 AM EST Office Visit [facility] [address] [place] [address] Laure Corona, JORDEN [address] [place] [address] [facility] Start: 06-26-2023 End: 06-26-2023 ambulatory [facility] Comment on above: Arrived Start: 06-24-2023 End: 06-24-2023 ambulatory [facility] Comment on above: Arrived Start: 06-20-2023 End: 06-20-2023 ambulatory 06/20/2023 11:30 AM EST Treatment [facility] [address] [place] [address] Yemi Stern PTA [facility] Start: 06-18-2023 End: 06-18-2023 ambulatory 06/18/2023 11:30 AM EST Treatment [facility] [address] [place] [address] Yemi Stern PTA [facility] Start: 06-17-2023 End: 06-17-2023 Patient encounter procedure 06/17/2023 4:30 PM EST Office Visit [facility] [address] [place] [address] Laure Corona, JORDEN [address] [place] [address] [facility] Start: 10-26-2022 Screening for malignant neoplasm of colon FIT-DNA [facility] Start: 1954 Medicare Annual Wellness (AWV) Medicare Annual Wellness (AWV) [facility] Start: 1955 Screening for malignant neoplasm of colon [facility] Patient Education Radiculopathy [facility] Work Phone: Patient referral [facility] Work Phone: Payers Date Payer Category Payer Private Health Insurance [id number] 2023 Self-pay 2019 Medicare MEDICARE MEDICAR E PART B [id number] 2019-[place] [address] Medicare [id number] 1959 Medicare [id number] 1959 Private Health Insurance CLI [id number] 1954 Unknown [id number] [id number] .593 1954 Unknown [id number] 2.16.840.1.880392.3.579.2 .593 1954 Unknown [id number] 2.16.840.1.997258.3.579.2 .593 1954 Unknown [id number] 2.16.840.1.089930.3.579.2 .1259 1954 Unknown [id number] 2.16.840.1.830956.3.579.2 .1258 1954 Unknown [id number] 2.16.840.1.633397.3.579.2 .1259 1954 Unknown [id number] 2.16.840.1.979826.3.579.2 .1259 1954 Unknown [id number] 2.16.840.1.812074.3.579.2 .9 1954 Unknown [id number] 2.16.840.1.085538.3.579.2 .1258 1954 Unknown [id number] 2.16.840.1.668359.3.579.2 .1258 1954 Unknown [id number] 2.16.840.1.669236.3.579.2 .1258 1954 Unknown [id number] 2.16.840.1.059613.3.579.2 .1258 1954 Unknown [id number] 2.16.840.1.719481.3.579.2 .1258 1954 Unknown [id number] 2.16.840.1.490281.3.579.2 .1258 1954 Unknown [id number] 2.16.840.1.263408.3.579.2 .1258 1954 Unknown [id number] 2.16.840.1.911571.3.579.2 .1258 1954 Unknown [id number] 2.16.840.1.424079.3.579.2 .1258 1954 Unknown [id number] 2.16.840.1.456247.3.579.2 .1259 Unknown [employer] [id number] Unknown [id number] 2.16.840.1.613651.3.579.2 .531 Social History Date Type Detail Facility Start: 04-25-2023 End: 05-20-2023 Tobacco smoking status NDIS Ex-smoker (finding) [facility] Start: 1955 Sex Assigned At Female [facility] End: 05-13-2015 History of tobacco use Current smoker [facility] End: 05-13-2015 History of tobacco use Cigarette Smoker [facility] Start: 05-20-2023 Tobacco use and exposure Smokeless tobacco non-user [facility] Start: 05-20-2023 End: 06-17-2023 Alcohol intake [...] to any clubs or organizations such as pentecostal groups, unions, fraternal or athletic groups, or [...] Healthcare History of Present illness Narrative 06-13-2023 Blanca Atul, PERMIT AGENT - 06/13/2023 11:30 AM EST Note Date [...] Facility Evaluation note No assessment information availa [facility] Work Phone: Evaluation note Note [...] of left elbow documented in this encounter [facility] Discharge instructions Note Date & Type [...] chills, unsteady gait or any other concerns [facility] Work Phone: Reason for visit Narrative Consultation (Routine) - Authorized Note Date & Type Note Facility Reason for visit Narrative Specialty Diagnoses / Procedures Referred By Tina vora Referred To Contact Physical Therapy Diagnoses Radiculopathy affecting upper extremity Lateral epicondylitis of left elbow Procedures DC OFFICE/OUTPATIENT NEW HIGH MDM 60 MINUTES Laure Corona NP [address] [place] [address] Bhakti Prasad, PT [address] [address] Referral ID Status Reason Start Date Expiration Date Visits Requested Visits Authorized [id number] Authorized Consult and Treat 05/20/2023 11/16/2023 10 10 [facility] Reason for visit Narrative Consultation (Routine) - Pending Review Note Date & Type Note Facility Reason for visit Narrative Specialty Diagnoses / Procedures Referred By Tina vora Referred To Contact Physical Therapy Diagnoses Radiculopathy affecting upper extremity Lateral epicondylitis of left elbow Procedures DC OFFICE/OUTPATIENT NEW HIGH MDM 60 MINUTES Laure Corona NP [address] [place] [address] Bhakti Prasad, PT [address] [address] Referral ID Status Reason Start Date Expiration Date Visits Requested Visits Authorized [id number] Pending Review Consult and Treat 05/20/2023 11/16/2023 [...] DATE CREATED AUTHOR AUTHOR'S ORGANIZ ATION 05/03/2023 [facility] DATE CREATED AUTHOR AUTHOR'S ORGANIZ ATION 10/17/2023 [facility] EPIC Care Teams (unrecognized sec tion and content) Team Status: Active Member Role Status Dates Olu Johnson MD Primary Care Provider Active Team Status: Inactive Member Role Status Dates Candelaria Falk , 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 Emergency Provider Active Olu Johnson MD Primary Care Provider Active Finance Teacher Relationship Specialty Start Date End Date Olu Johnson MD [address] [place] [phone] PCP - General Family Medicine 05/01/23 Laure Corona NP [address] [place] [phone] Nurse Practitioner Family Medicine 05/01/23 Finance Teacher Relationship Specialty Start Date End Date Olu Johnson MD [address] [place] [phone] PCP - General Family Medicine 05/01/23 Laure Corona NP [address] [place] [phone] Nurse Practitioner Family Medicine 05/01/23 Finance Teacher Relationship Specialty Start Date End Date Olu Johnson MD [address] [place] [phone] PCP - General Family Medicine 05/01/23 Laure Corona NP [address] [place] [phone] Nurse Practitioner Family Medicine 05/01/23 Finance Teacher Relationship Specialty Start Date End Date Olu Johnson MD [address] [place] [phone] PCP - General Family [facility] 05/01/23 Laure Corona NP [address] [place] [phone] Nurse Practitioner [facility] 05/01/23 Finance Teacher Relationship Specialty Start Date End Date Olu Johnson MD [address] [place] [phone] PCP - General [facility] 05/01/23 Laure Corona NP [address] [place] [phone] Nurse Practitioner [facility] 05/01/23 Goals (unrecognized section and content) Goals [...] BE BASED ON THE PRIMARY CLINICAL RECORDS. [employer] [facility]. provides no warranty or guarantee of the accuracy or completeness of information in this document.
[2023-11-06] MEDS: ONDANSETRON PF 4 MG/2 ML VIAL IV (14:28)
[2023-11-06] MEDS: 0.9 % SODIUM CHLORIDE 1,000 ML 999 ML IV (14:28)
[2023-11-06] MEDS: ENALAPRILAT DIHYDRATE 1.25 MG/ML VIAL IV (14:28)
[2023-11-06] MEDS: HYDRALAZINE HCL 20 MG/ML VIAL IVP (14:28)
[2023-11-06 14:30] LABS: INR 1.06; Prothrombin Time 11.2 sec (9.0-11.6)
[2023-11-06] MEDS: LORAZEPAM 2 MG/ML VIAL 0.5 MG IV (14:38)
[2023-11-06 14:46] LABS: Thyroid Stimulating Hormone 1.478 uIU/mL (0.358-3.740); Troponin I High Sensitivity 6.9 pg/mL (4.0-51.3)
--- NOTE | 2023-11-06 17:13 | P.HP_ITS ---
<Statement entered by Jaison Almeida MD - 11/07/23 23:07> This documentation has been reviewed and approved. Pt seen and examined at bedside - CP had resoled at that time agree with plan from [facility] HPI H&P: HPI History of Present Illness Chief complaint: HYPERTENSIVE URGENCY Narrative: 11/06/23 [id number] This is a 68-year-old female patient with a past medical history significant for hypertension, hypothyroidism, hyperlipidemia, and anxiety; who presented to the ED twice today complaining of hypertension and headache. She was initially seen in the ED, treated with hydralazine and morphine and she was feeling improved and discharged home. After returning home she checked her blood pressure again and it was still elevated and she had a headache and then began to feel short of breath and return to the ED for further evaluation. Her initial labs had been unremarkable. On representation troponin, NT proBNP, TSH, and magnesium were added to her lab profile and these were all unremarkable except her proBNP was mildly elevated (1547). Chest x-ray revealed possible mild interstitial prominence in both lungs representing likely edema. CT of the brain was unremarkable. Repeat dosing with hydralazine did not significantly improve the patient's hypertension she was finally given IV Ativan and the ED provider did note a significant drop in her blood pressure at that time. She is being admitted in observation to the hospitalist service due to persistent hypertension and headache. At the time of my exam the patient is resting comfortably in bed. She is alert and oriented x 3 and able to explain her recent medical history. She reports that her PCP recently took her off of amlodipine due to swelling in her legs and started carvedilol twice daily about 1 month ago. The patient monitors her blood pressure every day and has not seen a significant change in her blood pressure and this has been concerning her. Her PCP also initiated sertraline about 2 weeks ago as she was concerned that the patient's anxiety is driving some of her hypertension. The patient admits that she only took 1 tablet of the sertraline and did not take it daily as prescribed. When asked why, she commented that it was, just for anxiety and I thought I had only take it when I needed it . Appropriate dosing of sertraline was explained to the patient, and she verbalizes understanding. Opioid HPI Opioid Management Most Recent Pain and Opioid Data: Last Pain Scale 8 11/07/23 10:00 Last Pain Assessment 11/07/23 10:00 Last ED Pain Assessment 11/06/23 12:35 Last MAR Pain Assessment 11/07/23 05:49 Last ORT Total Score 0 11/06/23 17:28 Last ORT Risk Category Low Risk 11/06/23 17:28 Review of Systems ROS Status of ROS 10 or more systems reviewed and unremark able except as noted in history and below PFSH PFS Medical History (Updated 11/07/23 @ 11:23 by Paulina Harvey NP) Anxiety ?F41.9 - Anxiety disorder, unspecified (ICD-10) Hyperlipidemia ?E78.5 - Hyperlipidemia, unspecified (ICD-10) Hypothyroidism ?E03.9 - Hypothyroidism, unspecified (ICD-10) Hypertension ?I10 - Essential (primary) hypertension (ICD-10) Family History (Updated 11/06/23 @ 17:24 by Kristen Smart LPN) Father Family history of cancer Mother Family history of cancer Family history of hypertension Social History (Updated 11/06/23 @ 17:25 by Kristen Smart LPN) Within the past year, how often did you have a drink containing alcohol: 2-3 times a week Within the past year, how many standard drinks containing alcohol did you have on a typical day: 1 or 2 Within the past year, how often did you have six or more drinks on one occasion: never Total score: 0 Score interpretation: Questions 2 and 3 are 0. It can be assumed that the patient's drinking is below the recommended limits. However, please confirm the accuracy of the patient's alcohol intake over the last few months. Smoking status: Former smoker Second hand tobacco smoke exposure: No Non-prescribed substance use: denies use Previous occupational history: retired Known occupational exposures/hazards: No Highest level of school completed/degree received: some college, no degree Do you want help with school or training: No Are you now , , , , never or living with a partner: In a typical week, how many times do you talk on the telephone with family, friends, or neighbors: 3 or more times per week How often do you get together with friends or relatives: 3 or more times per week How often do you attend mandaen or mandaen services: never Do you belong to any clubs or organizations such as mandaen groups unions, fraternal or athletic groups, or school groups: no Total score: 2 Score interpretation: A score of greater than or equal to 2 indicates the lowest level of social isolation. Little interest or pleasure in doing things: not at all Feeling down, depressed, or hopeless: not at all Feel stressed/tense/nervous/anxious/difficulty sleeping: rather much Due to disability, difficulty making decisions: No Do you think of yourself as: straight/heterosexual Gender Identity: female Meds Home Medications and Allergies Home Medications ?Medication ?Instructions ?Recorded ?Confirmed ?Type levothyroxine 25 mcg tablet 25 mcg PO DAILY 04/28/23 11/06/23 History lisinopril 20 mg tablet 20 mg PO BID 04/28/23 11/06/23 History simvastatin 40 mg tablet 40 mg PO QPM 04/28/23 11/06/23 History carvedilol 3.125 mg tablet 3.125 mg 11/06/23 History sertraline 25 mg tablet mg 11/06/23 History Allergies Allergy/AdvReac Type Severity Reaction Status Date / Time cephalexin [From Keflex] Allergy Severe Verified 11/06/23 14:11 ciprofloxacin [From Cipro] Allergy Severe Verified 11/06/23 14:11 naproxen Allergy Severe Verified 11/06/23 14:11 Penicillins Allergy Severe Verified 11/06/23 14:11 Exam Constitutional Vital Signs, click to edit/add: Last Vital Signs Temp 98.0 F 11/06/23 14:06 Pulse 71 11/06/23 16:06 Resp 18 11/06/23 16:06 BP 142/90 H 11/06/23 16:06 Pulse Ox 92 L 11/06/23 16:06 O2 Del Method Room Air 11/06/23 14:06 Common normals: no apparent distress, oriented x3, alert and well nourished General appearance: cooperative Orientation/consciousness: Yes awake HENMT Common normals: normocephalic, head/scalp atraumatic, hearing grossly normal bilaterally, external nose normal and moist oral mucous membranes Eye Common normals: PERRL, EOMs intact bilaterally, conjunctivae normal and no scleral icterus Alignment: alignment normal Eyelid: eyelids normal Neck & C-Spine Common normals: full ROM, supple and no JVD Chest Common normals: inspection of chest normal Chest: symmetrical chest wall rise Respiratory Common normals: normal respiratory effort, no retractions, no use of accessory muscles and clear to auscultation bilaterally Auscultation: diminished lung sounds (Slightly diminished BLL) Cardio Common normals: no JVD, regular rate, regular rhythm, S1 normal heart sound, S2 normal heart sound, no gallops, no clicks, no rub and peripheral pulses 2+ throughout Heart sounds: murmur (HSM 2/6) GI Common normals: Normal to inspection, nondistended, normoactive bowel sounds present, soft to palpation, non-tender, no hepatosplenomegaly, no masses and no bruits Bladder/kidney exam: bladder normal to palpation Back & Pelvis Common normals: thoracic and lumbar spine normal to inspection Extremity Common normals: normal capillary refill General: normal exam except as noted and edema (Trace bilat insteps); no clubbing and no cyanosis Neuro [place] Coma Scale: GCS not evaluated Common normals: CN's II-XII intact bilaterally, moves all extremities, no focal motor deficits and no sensory deficits noted Speech: speech normal Motor exam: strength 5/5 throughout Psych Common normals: mental status grossly normal, thought process normal, affect normal and activity/motor behavior normal Mood and affect: anxious Insight: fair Judgement: fair Results Pulse Oximetry Attestation: I have reviewed the pertinent pulse oximetry results. Imaging Chest x-ray: Attestation: I have reviewed the pertinent imaging results. Radiologist's impression: IMPRESSION: Possible small amount of atelectasis and/or infiltrate in the lower lungs bilaterally. Mild interstitial prominence in both lungs likely represent edema. Pulmonary venous hypertension. Hyperinflation both lungs. Remainder the chest is unremarkable. CT scan - head: Attestation: I have reviewed the pertinent imaging results. Radiologist's impression: IMPRESSION: No acute intracranial abnormalities. Assessment and Plan Assessment and Plan (1) Hypertensive urgency: Assessment and Plan: Acute * Adm observation * BP 230/110 in the ED on re-presentation today * BP improved some with IVP Hydralazine in the ED on first visit, but rebounded * Significant improvement noted after Ativan was given in the ED but BP is starting to rise again * Suspect poorly controlled baseline hypertension, but exacerbated by anxiety/panic attack today * Amlodipine recently discontinued by PCP d/t peripheral edema * Coreg recently added by PCP at 3.125 BID * HR in the low to mid 50's in the ED today * Add HCTZ 25 mg daily to BP regimen * PRN Ativan PO for anxiety * PRN Hydralazine IVP for uncontrolled BP despite the above measures (2) Elevated brain natriuretic peptide (BNP) level: Assessment and Plan: Acute * No known CHF history * Recent onset of peripheral edema, thought to be 2/2 amlodipine (D/C'd) * CXR - Mild interstitial prominence bilaterally which may indicate pulmonary edema * 2D Echo in AM * Daily weights/ strict I&O * Consider lasix dosing pending clinical course (3) Headache: Assessment and Plan: Acute * Unclear if the HAWK is 2/2 to her elevated BP or contributing to HTN, as it persists even when BP is lowered * NSAIDS cause increased BP so will avoid ibuprofen/Toradol for now * Tylenol PRN for HAWK * Reduce HTN as much as possible - see above (4) Anxiety: Assessment and Plan: Chronic * Pt and spouse admit to significant anxiety at times, and likely panic attack earlier today leading to her subjective SOB and return to the ED * Start home Zoloft per PCP order * Pt instructed to take this daily as prescribed (not PRN) to help control her baseline anxiety (5) Hypothyroidism: Assessment and Plan: Chronic * Continue home levothyroxine (6) Hyperlipidemia: Assessment and Plan: Chronic * Continue home statin
--- OUTSIDE RECORDS SUMMARY | 2023-11-06 17:34 | XMS_ITS | CCD ---
Author Organization [facility] Care Team Providers Care Scientist/Engineer Name Role Phone ELIZABETH, DR OLU Martinez [...] Unavailable NADERER, DR OLU Martinez Referring Unavailable BARRE, DR JIMENEZ Hernandez Consulting Unavailable NADERER, DR OLU Martinez Attending Unavailable NADERER, DR OLU Martinez Consulting Unavailable CECILY Falk Emergency Provider [phone] MD Olu Johnson Primary Care Provider Candelaria Falk Attending Unavailable Candelaria Falk Admitting Unavailable Olu Johnson Primary Care Unavailable Aichholz CIGAR HEAD PIERCER, Laure Unavailable Olu Johnson MD Primary Care [...] (1 source) Cephalexin Drug Allergy 07-28-19 [facility] (1 source) Ciprofloxacin Drug Allergy 07-28-19 [facility] (1 source) Penicillin Drug Allergy 07-28-19 [facility] (8 sources) Cephalexin; Translations: [cephalexin] Drug Allergy 11-11-19 Dizziness, Rash [facility] (2 sources) Ciprofloxacin; Translations: [ciprofloxacin] Drug Allergy 04-25-20 Gastrointestinal Upset [facility] (8 sources) Penicillins; Translations: [Penicillins] Allergy to substance 04-25-20 Rash [facility] (6 sources) Naproxen Drug Allergy 05-20-19 Swelling, [...] 04-25-2023 Episodic Other aftercare (1 source) Other jail (current) drug therapy; Translations: [OTH PRISON CURRENT DRUG THERAPY] Onset: 07-31-2022 Episodic Other [...] 13.2 % 11.0 - 15.0 % [facility] Hematocrit (Bld) [Volume fraction] 41.7 % 36.0 - 48.0 % [facility] Hemoglobin (Bld) [Mass/Vol] 13.2 g/dL 12.0 - 16.0 g/dL [facility] IMMATURE GRANULOCYTES ABS AUTO 0.04 High [facility] Immature granulocytes/100 WBC (Bld) 0.6 % High 0.0 - 0.5 % [facility] Interpretation and review of laboratory results Abnormal [facility] LYMPHOCYTES ABSOLUTE AUTO 2.5 [facility] Lymphocytes/100 WBC (Bld) 38.4 % 20.5 - 60.0 % [facility] MCH (RBC) [Entitic mass] 30.6 pg 26.7 - 34.0 pg [facility] MCHC (RBC) [Mass/Vol] 31.7 g/dL 29.9 - 35.2 g/dL [facility] MCV (RBC) [Entitic vol] 96.5 fL 81.0 - 99.0 fL [facility] MONOCYTES ABSOLUTE AUTO 0.8 [facility] Monocytes/100 WBC (Bld) 11.8 % 1.7 - 12.0 % [facility] NEUTROPHILS ABSOLUTE AUTO 2.9 [facility] Neutrophils/100 WBC (Bld) 44.5 % 43.0 - 75.0 % [facility] Platelet mean volume (Bld) [Entitic vol] 10.2 fL 9.5 - 13.5 fL [facility] TBH EO # 0.2 [facility] PLT 259 [facility] RBC 4.32 [facility] WBC 6.6 [facility] Activated partial thrombopla stin time (aPTT) in platelet poor plasma by coagulation aOrdered By: Candelaria Falk on 04-25-2023 aPTT Coag (PPP) [Time] 27.5 s 25.1-36.5 [facility] Comment on above: A hematocrit value g reater than 55% may lead to inaccurate results in coagulation testing. Patients having hematocrit values >55% require a special collection tube for coagulation studies. Please contact the laboratory at [phone] for redraw instructions. B-Type Natriuretic Peptideon 04-25-2023 Natriuretic peptide B (Bld) [Mass/Vol] 44.0 pg/mL Normal 5-100 [facility] Comment on above: Result Comment: PERF ORMED BY: [place] [address] PATHOLOGIST POCKET GRINDER OPERATOR YUSRA WHITE M.D. Performed By: #### P TT, BMP, CBC, HS TROP, PT, BNP #### [address] Basic Metabolic Panelon 04-12 Anion gap [Moles/Vol] 12.1 mmol/L Normal 6.0-15.0 [facility] Comment on above: Performed By: #### P TT, BMP, CBC, HS TROP, PT, BNP #### [address] Calcium [Mass/Vol] 9.5 mg/dL Normal 8.6-10.3 [facility] Comment on above: Performed By: #### P TT, BMP, CBC, HS TROP, PT, BNP #### [facility] [address] Chloride [Moles/Vol] 103 mmol/L Normal 98-107 [facility] Comment on above: Performed By: #### P TT, BMP, CBC, HS TROP, PT, BNP #### [address] CO2 [Moles/Vol] 27.0 mmol/L Normal 21.0-31.0 [facility] Comment on above: Performed By: #### P TT, BMP, CBC, HS TROP, PT, BNP #### [address] Creatinine [Mass/Vol] 0.81 mg/dL Normal 0.60-1.20 [facility] Comment on above: Performed By: #### P TT, BMP, CBC, HS TROP, PT, BNP #### [place] [address] [place] Creatinine Clr Calc Pharmacy 57.40 Normal [facility] Comment on above: Result Comment: PERF ORMED BY: [place] [address] PATHOLOGIST POCKET GRINDER OPERATOR YUSRA WHITE M.D. Performed By: #### P TT, BMP, CBC, HS TROP, PT, BNP #### [address] GFR/1.73 sq M.predicted MDRD (S/P/Bld) [Vol rate/Area] mL/min/{1.73_m2} Normal [facility] Comment on above: Performed By: #### P TT, BMP, CBC, HS TROP, PT, BNP #### [address] Glucose [Mass/Vol] 87 mg/dL Normal 70-100 [facility] Comment on above: Result Comment: [facility] Glucose Reference Range is dependent on time and content of last meal. Glucose of more than 200 mg/dL in a nonstressed, ambulatory subject supports the diagnosis of Diabetes Mellitus. ADA recommended reference range Performed By: #### P TT, BMP, CBC, HS TROP, PT, BNP #### [address] Potassium [Moles/Vol] 4.1 mmol/L Normal 3.5-5.1 [facility] Comment on above: Performed By: #### P TT, BMP, CBC, HS TROP, PT, BNP #### [place] [address] [place] Sodium [Moles/Vol] 138 mmol/L Normal 136-145 [facility] Comment on above: Performed By: #### P TT, BMP, CBC, HS TROP, PT, BNP #### [place] [address] [place] Urea nitrogen [Mass/Vol] 17 mg/dL Normal 7-25 [facility] Comment on above: Performed By: #### P TT, BMP, CBC, HS TROP, PT, BNP #### [place] [address] [place] Basophils Auto (Bld) [#/Vol] Ordered By: Candelaria Falk on 04-25-2023 Basophils (Bld) [#/Vol] 0.0 10*3/uL 0.0-0.2 [facility] Basophils/100 WBC Auto (Bld) Ordered By: Candelaria Falk on 04-25-2023 Basophils/100 WBC (Bld) 0.3 % . [facility] COVID CepheidOrdered By: Carie fortunato Falk on 04-25-2023 SARS-CoV-2 (COVID-19) Ab IA Ql Negative Negative [facility] Comment on above: This is a duplicate Cepheid Xpert Xpress CoV-2/Flu/RSV Plus RNA by RT-PCR result to be used for statistical tracking purpose only. SARS-CoV-2 (COVID-19) RNA CASSIDY+probe Ql (Unsp spec) [facility] COVID-19 / Flu A/B / RSV PCR [...] or Cepheid Disclaimer revoked sooner. PERFORMED BY: [place] [address] PATHOLOGIST POCKET GRINDER OPERATOR YUSRA WHITE M.D. [facility] Comment on above: Performed By: #### C EPHEID NEG, COVID19 FLU RSV #### [address] head/brain wo conon 04-25 CT head/brain wo con [facility] [address] [place] [address] CT Scan Report Signed Patient: Edilma Leonardo MR#: [id number] : 1955 Acct:[id number] Age/Sex: 67 / F ADM Date: 04/25/23 Loc: ER Room: Type: [facility] ER Attending Dr: Copies to: Candelaria Falk [...] Lamin Park M.D.04/25/2023 9:04 PM Dictation Location: [place] [address] Transcribed By: [facility] 04/25/232103 Dictated By: Lamin Park II, MD 04/25/232101 Signed By: 04/25/232103 Normal [facility] Calcium [Mass/volume] in Ser um or PlasmaOrdered By: Candelaria Falk on 04-25-2023 Calcium [Mass/Vol] 9.5 mg/dL 8.6-10.3 [facility] Carbon dioxide, total [Moles /volume] in Serum or PlasmaOrdered By: Candelaria Falk on 04-25-2023 CO2 [Moles/Vol] 27.0 mmol/L 21.0-31.0 [facility] Cepheid COVID PCR Negativeon 04-25-2023 SARS-CoV-2 (COVID-19) RNA CASSIDY+probe Ql (Unsp spec) Negative Normal Negative [facility] Comment on above: Result Comment: This is a duplicate Cepheid Xpert Xpress CoV-2/Flu/RSV Plus RNA by RT-PCR result to be used for statistical tracking purpose only. PERFORMED BY: [place] [address] PATHOLOGIST POCKET GRINDER OPERATOR YUSRA WHITE M.D. Performed By: #### C EPHEID NEG, COVID19 FLU RSV #### [address] Chloride [Moles/volume] in S pawel or PlasmaOrdered By: Candelaria Falk on 12-14-2023 Chloride [Moles/Vol] 103 mmol/L 98-107 [facility] Complete Blood Count Auto Di ffon 04-25-2023 Basophils (Bld) [#/Vol] 0.0 10*3/uL Normal 0.0-0.2 [facility] Comment on above: Result Comment: PERF ORMED BY: [place] [address] PATHOLOGIST POCKET GRINDER OPERATOR YUSRA WHITE M.D. Performed By: #### P TT, BMP, CBC, HS TROP, PT, BNP #### [facility] [address] Basophils/100 WBC (Bld) 0.3 % Normal . [facility] Comment on above: Performed By: #### P TT, BMP, CBC, HS TROP, PT, BNP #### [address] Eosinophils (Bld) [#/Vol] 0.2 10*3/uL Normal 0.0-0.45 [facility] Comment on above: Performed By: #### P TT, BMP, CBC, HS TROP, PT, BNP #### [address] Eosinophils/100 WBC (Bld) 2.6 % Normal . [facility] Comment on above: Performed By: #### P TT, BMP, CBC, HS TROP, PT, BNP #### [address] Erythrocyte distribution width (RBC) [Ratio] 13.5 % Normal 11.9-15.3 [facility] Comment on above: Performed By: #### P TT, BMP, CBC, HS TROP, PT, BNP #### [address] Hematocrit (Bld) [Volume fraction] 42.5 % Normal 34.0-46.4 [facility] Comment on above: Performed By: #### P TT, BMP, CBC, HS TROP, PT, BNP #### [facility] [address] [place] [address] [place] Hemoglobin (Bld) [Mass/Vol] 14.4 g/dL Normal 11.8-15.4 [facility] Comment on above: Performed By: #### P TT, BMP, CBC, HS TROP, PT, BNP #### [address] Lymphocytes (Bld) [#/Vol] 2.9 10*3/uL Normal 1.00-4.8 [facility] Comment on above: Performed By: #### P TT, BMP, CBC, HS TROP, PT, BNP #### [address] Lymphocytes/100 WBC (Bld) 40.1 % Normal . [facility] Comment on above: Performed By: #### P TT, BMP, CBC, HS TROP, PT, BNP #### [address] MCH (RBC) [Entitic mass] 31.9 pg Normal 24.7-34.3 [facility] Comment on above: Performed By: #### P TT, BMP, CBC, HS TROP, PT, BNP #### [address] MCV (RBC) [Entitic vol] 93.8 fL Normal 80-100 [facility] Comment on above: Performed By: #### P TT, BMP, CBC, HS TROP, PT, BNP #### [address] Mean Corpuscular HGB Conc 34.0 g/dL Normal 32.0-35.0 [facility] Comment on above: Performed By: #### P TT, BMP, CBC, HS TROP, PT, BNP #### [place] [address] [place] Monocytes (Bld) [#/Vol] 0.6 10*3/uL Normal 0.0-0.8 [facility] Comment on above: Performed By: #### P TT, BMP, CBC, HS TROP, PT, BNP #### [address] Monocytes/100 WBC (Bld) 20.21 % High 0.00-20.00 [facility] Comment on above: Result Comment: For adults in ED, MDW > 20.0 may be associated with a higher risk of sepsis during the first 12 hrs of hospital admission Performed By: #### P TT, BMP, CBC, HS TROP, PT, BNP #### [address] Monocytes/100 WBC (Bld) 7.9 % Normal . [facility] Comment on above: Performed By: #### P TT, BMP, CBC, HS TROP, PT, BNP #### [address] Neutrophils (Bld) [#/Vol] 3.5 10*3/uL Normal 1.8-7.7 [facility] Comment on above: Performed By: #### P TT, BMP, CBC, HS TROP, PT, BNP #### [address] Neutrophils/100 WBC (Bld) 49.1 % Normal . [facility] Comment on above: Performed By: #### P TT, BMP, CBC, HS TROP, PT, BNP #### [address] NRBC% 0.0 /100{WBC} Normal 0-0.5 [facility] Comment on above: Performed By: #### P TT, BMP, CBC, HS TROP, PT, BNP #### [address] Platelet mean volume (Bld) [Entitic vol] 8.1 fL Normal 6.3-10.7 [facility] Comment on above: Performed By: #### P TT, BMP, CBC, HS TROP, PT, BNP #### [place] [address] [place] Platelets (Bld) [#/Vol] 247 10*3/uL Normal 150-450 [facility] Comment on above: Performed By: #### P TT, BMP, CBC, HS TROP, PT, BNP #### [address] [place] [address] [place] RBC (Bld) [#/Vol] 4.53 10*6/uL Normal 3.60-5.00 [facility] Comment on above: Performed By: #### P TT, BMP, CBC, HS TROP, PT, BNP #### [facility] [address] WBC (Bld) [#/Vol] 7.2 10*3/uL Normal 3.8-11.6 [facility] Comment on above: Performed By: #### P TT, BMP, CBC, HS TROP, PT, BNP #### [address] Creatinine [Mass/volume] in Serum or PlasmaOrdered By: Candelaria Falk on 04-25-2023 Creatinine [Mass/Vol] 0.81 mg/dL 0.60-1.20 [facility] ECG 12 lead ECGon 04-25-2023 ECG 12 lead ECG [facility] [place] [address] [place] [address] Electrocardiograph Report Signed Patient: Edilma Leonardo MR#: [id number] : 1955 Acct:[id number] Age/Sex: 67 / F ADM Date: 04/25/23 [...] sinus rhythm Confirmed by Santiago BLAKE DO ([id number]) on 04/25/2023 6:14:25 PM Referred By: Electronically Signed By:Santiago BLAKE DO Transcribed By: MUS Signed By Santiago Blake DO 1 06/26/221813 [facility] Eosinophils Auto (Bld) [#/Vo l]Ordered By: Candelaria Falk on 04-25-2023 Eosinophils (Bld) [#/Vol] 0.2 10*3/uL 0.0-0.45 [facility] Eosinophils/100 WBC Auto (Bl d)Ordered By: Candelaria Falk on 04-25-2023 Eosinophils/100 WBC (Bld) 2.6 % . [facility] Erythrocyte distribution wid th Auto (RBC) [Ratio]Ordered By: Candelaria Falk on 04-25-2023 Erythrocyte distribution width (RBC) [Ratio] 13.5 % 11.9-15.3 [facility] Glucose [Mass/volume] in Ser um or PlasmaOrdered By: Candelaria Falk on 04-25-2023 Glucose [Mass/Vol] 87 mg/dL 70-100 [facility] Comment on above: ADA recommended refe rence rangeRandom Glucose Reference Range is dependent on time and content of last meal. Glucose of more than 200 mg/dL in a nonstressed, ambulatory subject supports the diagnosis of Diabetes Mellitus. Hematocrit Auto (Bld) [Volum e fraction]Ordered By: Candelaria Falk on 04-25-2023 Hematocrit (Bld) [Volume fraction] 42.5 % 34.0-46.4 [facility] Hemoglobin [Mass/volume] in BloodOrdered By: Candelaria Falk on 04-25-2023 Hemoglobin (Bld) [Mass/Vol] 14.4 g/dL 11.8-15.4 [facility] INR in Platelet poor plasma by Coagulation assayOrdered By: Candelaria Falk on 04-25-2023 INR Coag (PPP) [Relative time] 1.0 {INR} [facility] Comment on above: INR Therapeutic Rang e [...] RBC Auto (Bld) [#/Vol] 7.2 10*3/uL 3.8-11.6 [facility] Lymphocytes Auto (Bld) [#/Vo l]Ordered By: Candelaria Falk on 04-25-2023 Lymphocytes (Bld) [#/Vol] 2.9 10*3/uL 1.00-4.8 [facility] Lymphocytes/100 WBC Auto (Bl d)Ordered By: Candelaria Falk on 04-25-2023 Lymphocytes/100 WBC (Bld) 40.1 % . [facility] MCH Auto (RBC) [Entitic mass ]Ordered By: Candelaria Falk on 04-25-2023 MCH (RBC) [Entitic mass] 31.9 pg 24.7-34.3 [facility] MCHC Auto (RBC) [Mass/Vol]Or dered By: Candelaria Falk on 04-25-2023 MCHC (RBC) [Mass/Vol] 34.0 g/dL 32.0-35.0 [facility] MCV Auto (RBC) [Entitic vol] Ordered By: Candelaria Falk on 04-25-2023 MCV (RBC) [Entitic vol] 93.8 fL 80-100 [facility] Monocyte distribution width [Entitic volume] in Blood by AutomatedOrdered By: Candelaria Falk on 04-25-2023 Monocyte distribution width Auto (Bld) [Entitic vol] 20.21 % 0.00-20.00 [facility] Comment on above: For adults in ED, MD W > 20.0 may be associated with a higher risk of sepsis during the first 12 hrs of hospital admission Monocytes Auto (Bld) [#/Vol] Ordered By: Candelaria Falk on 04-25-2023 Monocytes (Bld) [#/Vol] 0.6 10*3/uL 0.0-0.8 [facility] Monocytes/100 WBC Auto (Bld) Ordered By: Candelaria Falk on 04-25-2023 Monocytes/100 WBC (Bld) 7.9 % . [facility] Natriuretic peptide B [Mass/ Vol]Ordered By: Candelaria Falk on 04-25-2023 Natriuretic peptide B (Bld) [Mass/Vol] 44.0 pg/mL 5-100 [facility] Neutrophils Auto (Bld) [#/Vo l]Ordered By: Candelaria Falk on 04-25-2023 Neutrophils (Bld) [#/Vol] 3.5 10*3/uL 1.8-7.7 [facility] Neutrophils/100 WBC Auto (Bl d)Ordered By: Candelaria Falk on 04-25-2023 Neutrophils/100 WBC (Bld) 49.1 % . [facility] No Panel InformationOrdered By: Candelaria Falk on 04-25-2023 Estimated GFR (CKD-EPI) > 60.0 mL/Min [facility] Pharmacy Creatinine Clearance (Chem 57.40 [facility] Nucleated erythrocytes [Pres ence] in Blood by Automated countOrdered By: Candelaria Falk on 04-25-2023 Nucleated RBC Auto Ql (Bld) 0.0 /100{WBC} 0-0.5 [facility] Partial Thromboplastin Timeo n 04-25-2023 aPTT Coag (Bld) [Time] 27.5 s Normal 25.1-36.5 [facility] Comment on above: Result Comment: A he matocrit value greater than 55% may lead to inaccurate results in coagulation testing. Patients having hematocrit values >55% require a special collection tube for coagulation studies. Please contact the laboratory at [phone] for redraw instructions. PERFORMED BY: [place] [id number] PATHOLOGIST POCKET GRINDER OPERATOR YUSRA WHITE M.D. Performed By: #### H S TROP #### [address] Platelet mean volume Auto (B ld) [Entitic vol]Ordered By: Candelaria Falk on 04-25-2023 Platelet mean volume (Bld) [Entitic vol] 8.1 fL 6.3-10.7 [facility] Platelets Auto (Bld) [#/Vol] Ordered By: Candelaria Falk on 04-25-2023 Platelets (Bld) [#/Vol] 247 10*3/uL 150-450 [facility] Potassium [Moles/volume] in Serum or PlasmaOrdered By: Candelaria Falk on 04-25-2023 Potassium [Moles/Vol] 4.1 mmol/L 3.5-5.1 [facility] Prothrombin Time INRon 04-25 INR Coag (PPP) [Relative time] 1.0 {INR} Normal [facility] Comment on above: Result Comment: INR Therapeutic [...] BMP, CBC, HS TROP, PT, BNP #### [facility] [address] PT Coag (PPP) [Time] 11.5 s Normal 9.0-12.9 [facility] Comment on above: Result Comment: A he matocrit value greater than 55% may lead to inaccurate results in coagulation testing. Patients having hematocrit values >55% require a special collection tube for coagulation studies. Please contact the laboratory at [phone] for redraw instructions. Performed By: #### P TT, BMP, CBC, HS TROP, PT, BNP #### [facility] [address] [place] [id number] [facility] Prothrombin time (PT)Ordered By: Candelaria Falk on 04-25-2023 PT Coag (PPP) [Time] 11.5 s 9.0-12.9 [facility] Comment on above: A hematocrit value g reater than 55% may lead to inaccurate results in coagulation testing. Patients having hematocrit values >55% require a special collection tube for coagulation studies. Please contact the laboratory at [phone] for redraw instructions. RBC Auto (Bld) [#/Vol]Ordere d By: Candelaria Falk on 04-25-2023 RBC (Bld) [#/Vol] 4.53 10*6/uL 3.60-5.00 [facility] Serum or plasma anion gap de terminationOrdered By: Candelaria Falk on 04-25-2023 Anion gap [Moles/Vol] 12.1 mmol/L 6.0-15.0 [facility] Sodium [Moles/volume] in Ser um or PlasmaOrdered By: Candelaria Falk on 04-25-2023 Sodium [Moles/Vol] 138 mmol/L 136-145 [facility] Troponin I High Sensitivityo n 04-25-2023 Troponin I High Sensitivity 3.8 pg/mL Normal 0.0-15.0 [facility] Comment on above: Result Comment: PERF ORMED BY: [place] [address] PATHOLOGIST POCKET GRINDER OPERATOR YUSRA WHITE M.D. Performed By: #### H S TROP #### [facility] [address] [place] [address] Troponin I High Sensitivity 3.9 pg/mL Normal 0.0-15.0 [facility] Comment on above: Result Comment: PERF ORMED BY: [place] [address] PATHOLOGIST POCKET GRINDER OPERATOR YUSRA WHITE M.D. Performed By: #### P TT, BMP, CBC, HS TROP, PT, BNP #### [facility] [address] [place] [address] Troponin I.cardiac [Mass/vol ume] in Serum or Plasma by Detection limit <= 0.01 ng/Ordered By: Candelaria Falk on 04-25-2023 Troponin I.cardiac DL <= 0.01 ng/mL [Mass/Vol] 3.8 pg/mL 0.0-15.0 [facility] Urea nitrogen [Mass/volume] in Serum or PlasmaOrdered By: Candelaria Falk on 04-25-2023 Urea nitrogen [Mass/Vol] 17 mg/dL 7-25 [facility] WBC Auto (Bld) [#/Vol]Ordere d By: Candelaria Falk on 04-25-2023 WBC (Bld) [#/Vol] 7.2 10*3/uL 3.8-11.6 [facility] XR chest 2V*on 04-25-2023 XR chest 2V* [facility] Main [address] [address] XRay Report Signed Patient: Edilma Leonardo MR#: [id number] : 1955 Acct:[id number] Age/Sex: 67 / F ADM Date: 04/25/23 Loc: ER Room: Type: [facility] ER Attending Dr: Copies to: Candelaria Falk [...] Lamin Park M.D.04/25/2023 6:34 PM Dictation Location: [place] [address] Transcribed By: [facility] 04/25/231833 Dictated By: Lamin Park II, MD 04/25/231832 Signed By: 04/25/231833 Normal [facility] CBC W MANUAL DIFFon 07-28-19 23 ATYPICAL LYMPH # Normal [facility] Comment on above: Performed By: #### F T3, ALT, AST, BMP, TSH, LIPID #### [facility] [address] [place] [address] [address] Reji Pickett ATYPICAL LYMPH % Normal [facility] Comment on above: Performed By: #### F T3, ALT, AST, BMP, TSH, LIPID #### [facility] [address] [place], [place] [address] Dr. Reji Pickett BAND # Normal 0.0-0.3 [facility] Comment on above: Performed By: #### F T3, ALT, AST, BMP, TSH, LIPID #### [facility] [address] [place] [address] [address] Reji Pickett BAND % Normal 0-5 [facility] Comment on above: Performed By: #### F T3, ALT, AST, BMP, TSH, LIPID #### [facility] [address] [place] [address] [address] Reji Pickett BASOM # 0.00 103/ul Normal 0.00-0.10 [facility] Comment on above: Performed By: #### F T3, ALT, AST, BMP, TSH, LIPID #### [facility] [address] [place] [address] Dr. Reji [place] BASOM % 0.0 % Critically low 0.2-2.0 [facility] Comment on above: Performed By: #### F T3, ALT, AST, BMP, TSH, LIPID #### [facility] [address] [place] [address] Dr. Reji Pickett BLAST # Normal [facility] Comment on above: Performed By: #### F T3, ALT, AST, BMP, TSH, LIPID #### [facility] [address] [place] [address] Dr. Reji Pickett BLAST % Normal [facility] Comment on above: Performed By: #### F T3, ALT, AST, BMP, TSH, LIPID #### [facility] [address] [place] [address] Dr. Reji Pickett CORRECTED WBC Normal 4.0-11.0 [facility] Comment on above: Performed By: #### F T3, ALT, AST, BMP, TSH, LIPID #### [facility] [address] [place] [address] Dr. Reji Pickett EOS # 0.10 103/ul Normal 0.00-0.70 [facility] Comment on above: Performed By: #### F T3, ALT, AST, BMP, TSH, LIPID #### [facility] [address] [place] [address] Dr. Reji Pickett EOS% 1.0 % Normal 0.9-7.0 [facility] Comment on above: Performed By: #### F T3, ALT, AST, BMP, TSH, LIPID #### [facility] [address] [address] [address] Reji Pickett HCT 41.1 % Normal 36.0-48.0 [facility] Comment on above: Performed By: #### F T3, ALT, AST, BMP, TSH, LIPID #### [facility] [address] [place] [address] Dr. Reji Pickett HGB 13.6 g/dl Normal 12.0-16.0 [facility] Comment on above: Performed By: #### F T3, ALT, AST, BMP, TSH, LIPID #### [facility] [address] [place] [address] Dr. Reji Pickett LYMPHM # 0.40 103/ul Critically low 1.20-3.80 [facility] Comment on above: Performed By: #### F T3, ALT, AST, BMP, TSH, LIPID #### [facility] [address] [place] [address] Dr. Reji Pickett LYMPHM% 4.0 % Critically low 20.5-60.0 [facility] Comment on above: Performed By: #### F T3, ALT, AST, BMP, TSH, LIPID #### [facility] [address] [place] [address] Dr. Reji Pickett MCH 31.3 pg Normal 26.7-34.0 [facility] Comment on above: Performed By: #### F T3, ALT, AST, BMP, TSH, LIPID #### [facility] [address] [place] [address] Dr. Reji Pickett MCHC 33.1 g/dl Normal 29.9-35.2 [facility] Comment on above: Performed By: #### F T3, ALT, AST, BMP, TSH, LIPID #### [facility] [address] [place] [address] Dr. Reji Pickett MCV 94.5 fL Normal 81.0-99.0 [facility] Comment on above: Performed By: #### F T3, ALT, AST, BMP, TSH, LIPID #### [facility] [address] [address] [address] Reji Pickett METAMYELOCYTE # Normal [facility] Comment on above: Performed By: #### F T3, ALT, AST, BMP, TSH, LIPID #### [facility] [address] [place] [address] Dr. Reji Pickett METAMYELOCYTE % Normal [facility] Comment on above: Performed By: #### F T3, ALT, AST, BMP, TSH, LIPID #### [facility] [address] [address] [address] Reji Pickett MONOM# 0.61 103/ul Normal 0.30-0.80 [facility] Comment on above: Performed By: #### F T3, ALT, AST, BMP, TSH, LIPID #### [facility] [address] [place] [address] Dr. Reji Pickett MONOM% 6.0 % Normal 1.7-12.0 [facility] Comment on above: Performed By: #### F T3, ALT, AST, BMP, TSH, LIPID #### [facility] [address] [place] [address] Dr. Reji Pickett MPV 9.8 fL Normal 9.5-13.5 [facility] Comment on above: Performed By: #### F T3, ALT, AST, BMP, TSH, LIPID #### [facility] [address] [place] [address] Dr. Reji Pickett MYELOCYTE # Normal [facility] Comment on above: Performed By: #### F T3, ALT, AST, BMP, TSH, LIPID #### [facility] [address] [place] [address] Dr. Reji Pickett MYELOCYTE % Normal [facility] Comment on above: Performed By: #### F T3, ALT, AST, BMP, TSH, LIPID #### [facility] [address] [place] [address] Dr. Reji Pickett NRBC Normal [facility] Comment on above: Performed By: #### F T3, ALT, AST, BMP, TSH, LIPID #### [facility] [address] [place] [address] Dr. Reji Pickett PLT 191 103/ul Normal 150-450 [facility] Comment on above: Performed By: #### F T3, ALT, AST, BMP, TSH, LIPID #### [facility] [address] [address] [address] Reji Pickett RBC 4.35 106/ul Normal 4.20-5.40 [facility] Comment on above: Performed By: #### F T3, ALT, AST, BMP, TSH, LIPID #### [facility] [address] [address] [address] Reji Pickett RDW 13.7 % Normal 11.0-15.0 [facility] Comment on above: Performed By: #### F T3, ALT, AST, BMP, TSH, LIPID #### [facility] [address] [address] [address] Reji Pickett SEG # 8.99 103/ul Critically high 1.40-6.50 [facility] Comment on above: Performed By: #### F T3, ALT, AST, BMP, TSH, LIPID #### [facility] [address] [address] [address] Reji Pickett SEG % 89.0 % Critically high 43.0-75.0 [facility] Comment on above: Performed By: #### F T3, ALT, AST, BMP, TSH, LIPID #### [facility] [address] [address] [address] Reji Pickett WBC 10.1 103/ul Normal 4.0-11.0 [facility] Comment on above: Performed By: #### F T3, ALT, AST, BMP, TSH, LIPID #### [facility] [address] [address] [address] Reji Pickett CPKon 07-27-2022 CK [Catalytic activity/Vol] 53 U/L Normal 26-192 [facility] Comment on above: Performed By: #### F T3, ALT, AST, BMP, TSH, LIPID #### [facility] [address] [address] [address] Reji Pickett ER URINE PROFILEon 3 Bilirubin Ql (U) Negative Normal NEGATIVE [facility] Comment on above: Performed By: #### E RUR #### [facility] [address] [place] [address] Dr. Reji Pickett Clarity (U) CLEAR Normal CLEAR [facility] Comment on above: Performed By: #### E RUR #### [facility] [address] [place] [address] Dr. Reji Pickett Color (U) LT. YELLOW Normal YELLOW [facility] Comment on above: Performed By: #### E RUR #### [facility] [address] [place] [address] Dr. Reji Pickett ERUAHD A micrscopic examina tion will be performed if indicated. Normal [facility] Comment on above: Performed By: #### E RUR #### [facility] [address] [place] [address] Dr. Reji Pickett Glucose Ql (U) Negative Normal NEGATIVE [facility] Comment on above: Performed By: #### E RUR #### [facility] [address] [place] [address] Dr. Reji Pickett Hemoglobin Ql (U) Negative Normal NEGATIVE [facility] Comment on above: Performed By: #### E RUR #### [facility] [address] [place] [address] Dr. Reji Pickett Ketones Ql (U) TRACE Abnormal NEGATIVE [facility] Comment on above: Performed By: #### E RUR #### [facility] [address] [place] [address] Dr. Reji Pickett LEUKOCYTES Negative Normal NEGATIVE [facility] Comment on above: Performed By: #### E RUR #### [facility] [address] [place] [address] Dr. Reji Pickett Nitrite Ql (U) Negative Normal NEGATIVE [facility] Comment on above: Performed By: #### E RUR #### [facility] [address] [place] [address] Dr. Reji Pickett pH (U) 6.0 [pH] Normal 5-9 [facility] Comment on above: Performed By: #### E RUR #### [facility] [address] [place] [address] Dr. Reji Pickett SPEC GRAVITY 1.020 Normal 1.005-<=1. 025 [facility] Comment on above: Performed By: #### E RUR #### [facility] [address] [place] [address] Dr. Reji Pickett UA PROTEIN Negative Normal NEGATIVE/ TRACE [facility] Comment on above: Performed By: #### E RUR #### [facility] [address] [place] [address] Dr. Reji Pickett UR MICRO IND NOT INDICATED Normal [facility] Comment on above: Performed By: #### E RUR #### [facility] [address] [place] [address] Dr. Reji Pickett Urobilinogen Qn (U) 0.2 {Yamile'U}/dL Normal 0.2 - 1. 0 [facility] Comment on above: Performed By: #### E RUR #### [facility] [address] [place] [address] Dr. Reji Pickett LIPASEon 07-27-2022 Lipase [Catalytic activity/Vol] 138.0 U/L Normal 73.0-393.0 [facility] Comment on above: Performed By: #### F T3, ALT, AST, BMP, TSH, LIPID #### [facility] [address] [place] [address] Dr. Reji Pickett PROF 14(COMP METB)on 023 Albumin [Mass/Vol] 3.8 g/dL Normal 3.4-5.0 [facility] Comment on above: Performed By: #### F T3, ALT, AST, BMP, TSH, LIPID #### [facility] [address] [place] [address] Dr. Reji Pickett Albumin/Globulin [Mass ratio] 1.4 {ratio} Normal [facility] Comment on above: Performed By: #### F T3, ALT, AST, BMP, TSH, LIPID #### [facility] [address] [place] [address] Dr. Reji Pickett ALP [Catalytic activity/Vol] 74 U/L Normal 46-116 [facility] Comment on above: Performed By: #### F T3, ALT, AST, BMP, TSH, LIPID #### [facility] [address] [address] [address] Reji Pickett ALT [Catalytic activity/Vol] 36 U/L Normal 14-59 [facility] Comment on above: Performed By: #### F T3, ALT, AST, BMP, TSH, LIPID #### [facility] [address] [place] [address] Dr. Reji Pickett Anion gap [Moles/Vol] 14.1 mmol/L Normal [facility] Comment on above: Performed By: #### F T3, ALT, AST, BMP, TSH, LIPID #### [facility] [address] [place] [address] Dr. Reji Pickett AST [Catalytic activity/Vol] 25 U/L Normal 15-37 [facility] Comment on above: Performed By: #### F T3, ALT, AST, BMP, TSH, LIPID #### [facility] [address] [place] [address] Dr. Reji Pickett Bilirubin [Mass/Vol] 0.8 mg/dL Normal 0.2-1.0 [facility] Comment on above: Performed By: #### F T3, ALT, AST, BMP, TSH, LIPID #### [facility] [address] [place] [address] Dr. Reji Pickett Calcium [Mass/Vol] 8.7 mg/dL Normal 8.5-10.1 [facility] Comment on above: Performed By: #### F T3, ALT, AST, BMP, TSH, LIPID #### [facility] [address] [address] [address] Reji Pickett Chloride [Moles/Vol] 111 mmol/L Critically high 98-107 [facility] Comment on above: Performed By: #### F T3, ALT, AST, BMP, TSH, LIPID #### [facility] [address] [address] [address] Reji Pickett CO2 [Moles/Vol] 22.7 mmol/L Normal 21.0-32.0 [facility] Comment on above: Performed By: #### F T3, ALT, AST, BMP, TSH, LIPID #### [facility] [address] [place] [address] Dr. Reji Pickett Creatinine [Mass/Vol] 0.79 mg/dL Normal 0.55-1.02 [facility] Comment on above: Performed By: #### F T3, ALT, AST, BMP, TSH, LIPID #### [facility] [address] [place] [address] Dr. Reji Pickett EGFR-AF GAMBIAN >60 Normal >=60 [facility] Comment on above: Performed By: #### F T3, ALT, AST, BMP, TSH, LIPID #### [facility] [address] [place] [address] Dr. Reji Pickett EGFR-NON AF GAMBIAN >60 Normal >=60 [facility] Comment on above: Performed By: #### F T3, ALT, AST, BMP, TSH, LIPID #### [facility] [address] [place] [address] Dr. Reji Pickett Globulin (S) [Mass/Vol] 2.7 g/dL Normal [facility] Comment on above: Performed By: #### F T3, ALT, AST, BMP, TSH, LIPID #### [facility] [address] [place] [address] Dr. Reji Pickett Glucose [Mass/Vol] 94 mg/dL Normal 74-106 [facility] Comment on above: Performed By: #### F T3, ALT, AST, BMP, TSH, LIPID #### [facility] [address] [place] [address] Dr. Reji Pickett Potassium [Moles/Vol] 4.8 mmol/L Normal 3.5-5.1 [facility] Comment on above: Performed By: #### F T3, ALT, AST, BMP, TSH, LIPID #### [facility] [address] [place] [address] Dr. Reji Pickett Protein [Mass/Vol] 6.5 g/dL Normal 6.4-8.2 [facility] Comment on above: Performed By: #### F T3, ALT, AST, BMP, TSH, LIPID #### [facility] [address] [address] [address] Reji Pickett Sodium [Moles/Vol] 143 mmol/L Normal 136-145 [facility] Comment on above: Performed By: #### F T3, ALT, AST, BMP, TSH, LIPID #### [facility] [address] [address] [address] Reji Pickett Urea nitrogen [Mass/Vol] 20.0 mg/dL Critically high 7.0-18.0 [facility] Comment on above: Performed By: #### F T3, ALT, AST, BMP, TSH, LIPID #### [facility] [address] [address] [address] Reji Pickett Urea nitrogen/Creatinine [Mass ratio] 25.3 mg/mg Normal [facility] Comment on above: Performed By: #### F T3, ALT, AST, BMP, TSH, LIPID #### [facility] [address] [address] [address] Reji Pickett TROPONIN, HIGH SENSITIVITYon 07-27-2022 HSTROP 4.5 pg/mL Normal 4.0-51.3 [facility] Comment on above: Result Comment: CUT- OFF POINTS HAVE BEEN ESTABLISHED BASED ON THE FOURTH UNIVERSAL DEFINITIONS OF MYOCARDIAL INFARCTION. THE UPPER REFERENCE LIMIT (URL) OF TROPONIN, DEFINED THE 99TH PERCENTILE OF cTnI DISTRIBUTION IN A REFERENCE POPULATION, HAS BEEN CONFIRMED THE DECISION THRESHOLD FOR MO DIAGNOSIS. Performed By: #### F T3, ALT, AST, BMP, TSH, LIPID #### [facility] [address] [place] [address] CHEST WO CONon [...] JIMENEZ OLIVA Date: 2021-10-31 11:54 Normal [facility] MAMM SCREEN 3D TACO CADon 10-31-2021 MAMM SCREEN 3D TACO CAD Patient: EDILMA LEONARDO Exam Date: 10/31/2021 : 1955 Gender:F Ordering : DR OLU JOHNSON . Admission #: [id number] Family : Order #: [id number] CLICK HERE TO VIEW EXAM RADIOLOGY REPORT [...] throat cancer at age 81. LOCATION: [facility] BREAST COMPOSITION: Heterogeneously dense,which may [...] MD on 10/31/2021 at 13:49 Normal [facility] CBC AUTO DIFFon 10-18-2021 BASO # 0.1 103/ul Normal 0.0-0.1 [facility] Comment on above: Performed By: #### F T3, ALT, AST, BMP, TSH, LIPID #### [facility] [address] [place] [address] Dr. Reji Pickett Basophils/100 WBC (Bld) 1.2 % Normal 0.2-2.0 [facility] Comment on above: Performed By: #### F T3, ALT, AST, BMP, TSH, LIPID #### [facility] [address] [place] [address] Dr. Reji Pickett EO # 0.1 103/ul Normal 0.0-0.7 [facility] Comment on above: Performed By: #### F T3, ALT, AST, BMP, TSH, LIPID #### [facility] [address] [place] [address] Dr. Reji Pickett Eosinophils/100 WBC (Bld) 2.3 % Normal 0.9-7.0 [facility] Comment on above: Performed By: #### F T3, ALT, AST, BMP, TSH, LIPID #### [facility] [address] [place] [address] Dr. Reji Pickett Erythrocyte distribution width (RBC) [Ratio] 14.3 % Normal 11.0-15.0 [facility] Comment on above: Performed By: #### F T3, ALT, AST, BMP, TSH, LIPID #### [facility] [address] [place] [address] Dr. Reji Pickett Hematocrit (Bld) [Volume fraction] 40.6 % Normal 36.0-48.0 [facility] Comment on above: Performed By: #### F T3, ALT, AST, BMP, TSH, LIPID #### [facility] [address] [place] [address] Dr. Reji Pickett Hemoglobin (Bld) [Mass/Vol] 12.6 g/dL Normal 12.0-16.0 [facility] Comment on above: Performed By: #### F T3, ALT, AST, BMP, TSH, LIPID #### [facility] [address] [place] [address] Dr. Reji Pickett IG # 0.01 10e3/ul Normal 0.00-0.03 [facility] Comment on above: Performed By: #### F T3, ALT, AST, BMP, TSH, LIPID #### [facility] [address] [place] [address] Dr. Reji Pickett IG % 0.2 % Normal 0.0-0.5 [facility] Comment on above: Performed By: #### F T3, ALT, AST, BMP, TSH, LIPID #### [facility] [address] [place] [address] Dr. Reji Pickett LYMPH # 2.2 103/ul Normal 1.2-3.8 [facility] Comment on above: Performed By: #### F T3, ALT, AST, BMP, TSH, LIPID #### [facility] [address] [place] [address] Dr. Reji Pickett Lymphocytes/100 WBC (Bld) 39.1 % Normal 20.5-60.0 [facility] Comment on above: Performed By: #### F T3, ALT, AST, BMP, TSH, LIPID #### [facility] [address] [place] [address] Dr. Reji Pickett MANUAL DIFF REQ NO Normal [facility] Comment on above: Performed By: #### F T3, ALT, AST, BMP, TSH, LIPID #### [facility] [address] [place] [address] Dr. Reji Pickett MCH (RBC) [Entitic mass] 31.0 pg Normal 26.7-34.0 [facility] Comment on above: Performed By: #### F T3, ALT, AST, BMP, TSH, LIPID #### [facility] [address] [place] [address] Dr. Reji Pickett MCHC (RBC) [Mass/Vol] 31.0 g/dL Normal 29.9-35.2 [facility] Comment on above: Performed By: #### F T3, ALT, AST, BMP, TSH, LIPID #### [facility] [address] [place] [address] Dr. Reji Pickett MCV (RBC) [Entitic vol] 99.8 fL Critically high 81.0-99.0 [facility] Comment on above: Performed By: #### F T3, ALT, AST, BMP, TSH, LIPID #### [facility] [address] [place] [address] Dr. Reji Pickett MONO # 0.6 103/ul Normal 0.3-0.8 [facility] Comment on above: Performed By: #### F T3, ALT, AST, BMP, TSH, LIPID #### [facility] [address] [place] [address] Dr. Reji Pickett Monocytes/100 WBC (Bld) 10.5 % Normal 1.7-12.0 [facility] Comment on above: Performed By: #### F T3, ALT, AST, BMP, TSH, LIPID #### [facility] [address] [place] [address] Dr. Reji Pickett NEUT # 2.7 103/ul Normal 1.4-6.5 [facility] Comment on above: Performed By: #### F T3, ALT, AST, BMP, TSH, LIPID #### [facility] [address] [place] [address] Dr. Reji Pickett Neutrophils/100 WBC (Bld) 46.7 % Normal 43.0-75.0 [facility] Comment on above: Performed By: #### F T3, ALT, AST, BMP, TSH, LIPID #### [facility] [address] [place] [address] Dr. Reji Pickett Platelet mean volume (Bld) [Entitic vol] 11.2 fL Normal 9.5-13.5 [facility] Comment on above: Performed By: #### F T3, ALT, AST, BMP, TSH, LIPID #### [facility] [address] [place] [address] Dr. Reji Pickett PLT 242 103/ul Normal 150-450 [facility] Comment on above: Performed By: #### F T3, ALT, AST, BMP, TSH, LIPID #### [facility] [address] [address] [address] Reji Pickett RBC 4.07 106/ul Critically low 4.20-5.40 [facility] Comment on above: Performed By: #### F T3, ALT, AST, BMP, TSH, LIPID #### [facility] [address] [place] [address] Dr. Reji Pickett WBC 5.7 103/ul Normal 4.0-11.0 [facility] Comment on above: Performed By: #### F T3, ALT, AST, BMP, TSH, LIPID #### [facility] [address] [place] [address] Dr. Reji Pickett FREE T3on 10-18-2021 FREE T3 1.91 pg/mlL Critically low 2.18-3.98 [facility] Comment on above: Performed By: #### F T3, ALT, AST, BMP, TSH, LIPID #### [facility] [address] [place] [address] Dr. Reji Pickett FREE T4on 10-18-2021 Free T4 [Mass/Vol] 1.06 ng/dL Normal 0.76-1.46 [facility] Comment on above: Performed By: #### F T4 #### [facility] [address] [place] [address] Dr. Reji Pickett LIPID PROFILEon 10-18-2021 CHOL-HDL RATIO NORM SEE BELOW Normal [facility] Comment on above: Result Comment: 3.3 - 4.4 LOW RISK 4.4 - 7.1 AVERAGE RISK 7.1 - 11.0 MODERATE RISK >11.0 HIGH RISK Performed By: #### F T3, ALT, AST, BMP, TSH, LIPID #### [facility] [address] [place] [address] Dr. Reji Pickett Cholesterol [Mass/Vol] 181 mg/dL Normal <=200 [facility] Comment on above: Performed By: #### F T3, ALT, AST, BMP, TSH, LIPID #### [facility] [address] [place] [address] Dr. Reji Pickett Cholesterol in HDL [Mass/Vol] 69 mg/dL Critically high 40-60 [facility] Comment on above: Performed By: #### F T3, ALT, AST, BMP, TSH, LIPID #### [facility] [address] [address] [address] Reji Pickett Cholesterol in LDL [Mass/Vol] 97.4 mg/dL Normal [facility] Comment on above: Performed By: #### F T3, ALT, AST, BMP, TSH, LIPID #### [facility] [address] [address] [address] Reji Pickett Cholesterol.total/Chol esterol in HDL [Mass ratio] 2.6 {ratio} Normal [facility] Comment on above: Performed By: #### F T3, ALT, AST, BMP, TSH, LIPID #### [facility] [address] [place] [address] Dr. Reji Pickett HDL NORMAL > or = 60 mg/dl - LO W CARDIOVASCULAR RISK <40 mg/dl - HIGH CARDIOVASCULAR RISK Normal [facility] Comment on above: Performed By: #### F T3, ALT, AST, BMP, TSH, LIPID #### [facility] [address] [address] [address] Reji Pickett LDL CALC NORMAL SEE BELOW Normal [facility] Comment on above: Result Comment: <100 mg/dl OPTIMAL 100 - 129 mg/dl NEAR OR ABOVE OPTIMAL 130 - 159 mg/dl BORDERLINE HIGH 160 - 189 mg/dl HIGH >190 mg/dl VERY HIGH Performed By: #### F T3, ALT, AST, BMP, TSH, LIPID #### [facility] [address] [address] [address] Reji Pickett Triglyceride [Mass/Vol] 73 mg/dL Normal <=150 [facility] Comment on above: Performed By: #### F T3, ALT, AST, BMP, TSH, LIPID #### [facility] [address] [address] [address] Reji Pickett VLDL CALC 14.6 mg/dL Normal [facility] Comment on above: Performed By: #### F T3, ALT, AST, BMP, TSH, LIPID #### [facility] [address] [place] [address] Dr. Reji Pickett PROF CHEM 8 (BAS METB)on Anion gap [Moles/Vol] 14.1 mmol/L Normal Th e [facility] Comment on above: Performed By: #### F T3, ALT, AST, BMP, TSH, LIPID #### [facility] [address] [place] [address] Dr. Reji Pickett Calcium [Mass/Vol] 9.1 mg/dL Normal 8.5-10.1 [facility] Comment on above: Performed By: #### F T3, ALT, AST, BMP, TSH, LIPID #### [facility] [address] [place] [address] Dr. Reji Pickett Chloride [Moles/Vol] 105 mmol/L Normal 98-107 [facility] Comment on above: Performed By: #### F T3, ALT, AST, BMP, TSH, LIPID #### [facility] [address] [place] [address] Dr. Reji Pickett CO2 [Moles/Vol] 27.0 mmol/L Normal 21.0-32.0 [facility] Comment on above: Performed By: #### F T3, ALT, AST, BMP, TSH, LIPID #### [facility] [address] [place] [address] Dr. Reji Pickett Creatinine [Mass/Vol] 0.78 mg/dL Normal 0.55-1.02 [facility] Comment on above: Performed By: #### F T3, ALT, AST, BMP, TSH, LIPID #### [facility] [address] [place] [address] Dr. Reji Pickett EGFR-AF GAMBIAN Normal >=60 [facility] Comment on above: Performed By: #### F T3, ALT, AST, BMP, TSH, LIPID #### [facility] [address] [place] [address] Dr. Reji Pickett EGFR-NON AF GAMBIAN Normal >=60 [facility] Comment on above: Performed By: #### F T3, ALT, AST, BMP, TSH, LIPID #### [facility] [address] [place] [address] Dr. Reji Pickett Glucose [Mass/Vol] 74 mg/dL Normal 74-106 [facility] Comment on above: Performed By: #### F T3, ALT, AST, BMP, TSH, LIPID #### [facility] [address] [place] [address] Dr. Reji Pickett Potassium [Moles/Vol] 4.1 mmol/L Normal 3.5-5.1 [facility] Comment on above: Performed By: #### F T3, ALT, AST, BMP, TSH, LIPID #### [facility] [address] [place] [address] Dr. Reji Pickett Sodium [Moles/Vol] 142 mmol/L Normal 136-145 [facility] Comment on above: Performed By: #### F T3, ALT, AST, BMP, TSH, LIPID #### [facility] [address] [place] [address] Dr. Reji Pickett Urea nitrogen [Mass/Vol] 15.0 mg/dL Normal 7.0-18.0 [facility] Comment on above: Performed By: #### F T3, ALT, AST, BMP, TSH, LIPID #### [facility] [address] [place] [address] Dr. Reji Pickett Urea nitrogen/Creatinine [Mass ratio] 19.2 mg/mg Normal [facility] Comment on above: Performed By: #### F T3, ALT, AST, BMP, TSH, LIPID #### [facility] [address] [place] [address] Dr. Reji Leyva 10-18-2021 AST [Catalytic activity/Vol] 33 U/L Normal 15-37 [facility] Comment on above: Performed By: #### F T3, ALT, AST, BMP, TSH, LIPID #### [facility] [address] [place] [address] Dr. Reji Lopez 10-18-2021 ALT [Catalytic activity/Vol] 59 U/L Normal 14-59 [facility] Comment on above: Performed By: #### F T3, ALT, AST, BMP, TSH, LIPID #### [facility] [address] [place], [place] [address] Dr. Reji Pickett TSHon 10-18-2021 TSH 1.079 uIU/mL Normal 0.358-3.74 0 [facility] Comment on above: Performed By: #### F T3, ALT, AST, BMP, TSH, LIPID #### [facility] [address] [place], [place] [address] Dr. Reji Pickett TSH RANGE SEE BELOW Normal [facility] Comment on above: Result Comment: <0.3 4 UIU/ml HYPERTHYROID 0.34-5.60 UIU/ml EUTHYROID >5.60 UIU/ml HYPOTHYROID Performed By: #### F T3, ALT, AST, BMP, TSH, LIPID #### [facility] [id number] Reji Pickett Vital Signs Date Time Vital Sign Value Performing Clinician Faci lity 04-25-2023 21:50-0500 Body temperature 97.5 [degF] PUBLICATIONS DISTRIBUTION CLERK Candelaria Lolly Wolly Doodlee Work Phone: [facility] 04-25-2023 21:50-0500 Diastolic blood pressure 71 mm[Hg] PUBLICATIONS DISTRIBUTION CLERK Candelaria Lolly Wolly Doodlee Work Phone: [facility] 04-25-2023 21:50-0500 Heart rate 59 /min PUBLICATIONS DISTRIBUTION CLERK Candelaria Lolly Wolly Doodlee Work Phone: [facility] 04-25-2023 21:50-0500 Respiratory rate 20 /min PUBLICATIONS DISTRIBUTION CLERK Candelaria Lolly Wolly Doodlee Work Phone: [facility] 04-25-2023 21:50-0500 SaO2% (BldA) [Mass fraction] 95 % PUBLICATIONS DISTRIBUTION CLERK Candelaria Lolly Wolly Doodlee Work Phone: [facility] 04-25-2023 21:50-0500 Systolic blood pressure 134 mm[Hg] PUBLICATIONS DISTRIBUTION CLERK Candelaria Lolly Wolly Doodlee Work Phone: [facility] 04-25-2023 17:23-0500 Body height 162.56 cm PUBLICATIONS DISTRIBUTION CLERK Candelaria Saffle Work Phone: [facility] 04-25-2023 17:21-5684 Body weight 63.4 kg CECILY Falk Work Phone: [facility] Encounters Encounter Date Encounter Type Care Provider [...] Unsolicited Start: 06-24-2023 Bamboo flowsheet Yemi Stern 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 [facility] Start: 06-24-2023 Bamboo flowsheet Yemi Brink 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 [facility] Start: 06-24-2023 End: 06-24-2023 ambulatory Yemi Stern 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 [facility] Comment on above: Radiculopathy affect ing upper extremity (Primary Dx); Lateral epicondylitis of left elbow Start: 06-20-2023 End: 06-20-2023 ambulatory YEMI STERN Not Available Start: 06-18-2023 End: 06-18-2023 ambulatory EYMI STERN Not Available Start: 06-17-2023 End: 06-17-2023 ambulatory LAURE AICHHOLZ Not Available Start: 06-17-2023 Patient encounter procedure Yemi Stern 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 [facility] Start: 06-13-2023 End: 06-13-2023 ambulatory Blanca Pollard 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 [facility] Comment on above: Radiculopathy affect ing upper extremity (Primary Dx); Lateral epicondylitis of left elbow Start: 06-11-2023 End: 06-11-2023 ambulatory BHAKTI PRASAD Not Available Start: 05-20-2023 End: 05-20-2023 ambulatory LAURE AICHHOLZ Not Available Start: 05-01-2023 End: 05-01-2023 ambulatory LAURE AICHHOLZ Not Available Start: 04-25-2023 End: 04-26-2023 Emergency department patient visit Candelaria Falk Facility:[facility] Start: 04-25-2023 End: 04-25-2023 Emergency department patient visit CECILY Falk Work Phone: [facility] Work Phone: Start: 07-27-2022 End: 07-27-[address] OLU JOHNSON Facility:[facility] Start: 10-31-2021 End: 11-01-[address] OLU JOHNSON Facility:[facility] Start: 10-18-2021 End: 10-19-[address] OLU JOHNSON Facility:[facility] Procedures Date Procedure Procedure Detail Performing Clinician Start: 06-25-2023 ALL CBC WITH AUTO DIFF Generic External Data Provider Start: 05-22-2023 Mammography Blanca chirinos 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 Start: 04-25-2023 CT of head without contrast PUBLICATIONS DISTRIBUTION CLERK Candelaria Falk Work Phone: Start: 04-25-2023 Plain chest X-ray CECILY Falk Work Phone: Start: 04-25-2023 SARS-CoV-2, Influenz a & RSV (PCR) PUBLICATIONS DISTRIBUTION CLERK Candelaria Falk Work Phone: Start: 12-07-2019 Colonoscopy Blanca Ayden chirinos 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 Plan of Treatment Date Care Activity Detail Author Start: 12-06-2029 Screening for malignant neoplasm of colon [facility] Start: 06-17-2024 Medicare Annual Wellness (AWV) Medicare Annual Wellness (AWV) [facility] Start: 05-22-2024 Screening for malignant neoplasm of breast Mammogram [facility] Start: 07-10-2023 End: 07-10-2023 Patient encounter procedure 07/10/2023 9:00 AM EST Office Visit [facility] [address] [place] [address] Laure Corona, JORDEN [address] [place] [address] [facility] Start: 06-26-2023 End: 06-26-2023 ambulatory [facility] Comment on above: Arrived Start: 06-24-2023 End: 06-24-2023 ambulatory [facility] Comment on above: Arrived Start: 06-20-2023 End: 06-20-2023 ambulatory 06/20/2023 11:30 AM EST Treatment [facility] [address] [place] [address] Yemi Stern PTA [facility] Start: 06-18-2023 End: 06-18-2023 ambulatory 06/18/2023 11:30 AM EST Treatment [facility] [address] [place] [address] Yemi Stern PTA [facility] Start: 06-17-2023 End: 06-17-2023 Patient encounter procedure 06/17/2023 4:30 PM EST Office Visit [facility] [address] [place] [address] Laure Corona, JORDEN [address] [place] [address] [facility] Start: 10-26-2022 Screening for malignant neoplasm of colon [facility] Start: 1955 Medicare Annual Wellness (AWV) Medicare Annual Wellness (AWV) [facility] Start: 1955 Screening for malignant neoplasm of colon [facility] Patient Education Radiculopathy [facility] Work Phone: Patient referral [facility] Work Phone: Payers Date Payer Category Payer Private Health Insurance [id number] 2023 Self-pay 2019 Medicare MEDICARE MEDICAR E PART B [id number] 2019-[place] [address] Medicare [id number] 1959 Medicare [id number] 1959 Private Health Insurance CLI [id number] 1954 Unknown [id number] [id number] .593 1954 Unknown [id number] 2.16.840.1.085416.3.579.2 .593 1954 Unknown [id number] 2.16.840.1.639732.3.579.2 .593 1954 Unknown [id number] 2.16.840.1.461322.3.579.2 .1259 1954 Unknown [id number] 2.16.840.1.440216.3.579.2 .1258 1954 Unknown [id number] 2.16.840.1.017603.3.579.2 .1259 1954 Unknown [id number] 2.16.840.1.104443.3.579.2 .1259 1954 Unknown [id number] 2.16.840.1.663733.3.579.2 .9 1954 Unknown [id number] 2.16.840.1.461622.3.579.2 .1258 1954 Unknown [id number] 2.16.840.1.574120.3.579.2 .1258 1954 Unknown [id number] 2.16.840.1.491081.3.579.2 .1258 1954 Unknown [id number] 2.16.840.1.030036.3.579.2 .1258 1954 Unknown [id number] 2.16.840.1.887840.3.579.2 .1258 1954 Unknown [id number] 2.16.840.1.955869.3.579.2 .1258 1954 Unknown [id number] 2.16.840.1.650670.3.579.2 .1258 1954 Unknown [id number] 2.16.840.1.681020.3.579.2 .1258 1954 Unknown [id number] 2.16.840.1.663891.3.579.2 .1258 1954 Unknown [id number] 2.16.840.1.454052.3.579.2 .1259 Unknown [employer] [id number] Unknown [id number] 2.16.840.1.457807.3.579.2 .531 Social History Date Type Detail Facility Start: 04-25-2023 End: 05-20-2023 Tobacco smoking status WAIS Ex-smoker (finding) [facility] Start: 1955 Sex Assigned At Female [facility] End: 05-13-2015 History of tobacco use Current smoker [facility] End: 05-13-2015 History of tobacco use Cigarette Smoker [facility] Start: 05-20-2023 Tobacco use and exposure Smokeless tobacco non-user [facility] Start: 05-20-2023 End: 06-17-2023 Alcohol intake [...] of Present illness Narrative 06-13-2023 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, 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 - 06/13/2023 11:30 AM EST Note Date [...] Physician Signature: Date: documented in this encounter [facility] Evaluation note Note Date & Type Note Facility Evaluation note No assessment information availa [facility] Work Phone: Evaluation note Note Date & Type Note Facility Evaluation note Diagnosis Radiculopathy affecting upper extremity- Primary Lateral epicondylitis of left elbow documented in this encounter [facility] Evaluation note Note Date & Type Note Facility Evaluation note Diagnosis Radiculopathy affecting upper extremity- Primary Lateral epicondylitis of left elbow documented in this encounter [facility] Evaluation note Note Date & Type Note Facility Evaluation note Diagnosis Radiculopathy affecting upper extremity- Primary Lateral epicondylitis of left elbow documented in this encounter [facility] Discharge instructions Note Date & [...] chills, unsteady gait or any other concerns [facility] Work Phone: Reason for visit Narrative Consultation (Routine) - Authorized Note Date & Type Note Facility Reason for visit Narrative Specialty Diagnoses / Procedures Referred By Tina vora Referred To Contact Physical Therapy Diagnoses Radiculopathy affecting upper extremity Lateral epicondylitis of left elbow Procedures UT OFFICE/OUTPATIENT NEW HIGH MDM 60 MINUTES Laure Corona NP [address] [place] [address] Bhakti Prasad, PT [address] [address] Referral ID Status Reason Start Date Expiration Date Visits Requested Visits Authorized [id number] Authorized Consult and Treat 05/20/2023 11/16/2023 10 10 [facility] Reason for visit Narrative Consultation (Routine) - Pending Review Note Date & Type Note Facility Reason for visit Narrative Specialty Diagnoses / Procedures Referred By Tina vora Referred To Contact Physical Therapy Diagnoses Radiculopathy affecting upper extremity Lateral epicondylitis of left elbow Procedures UT OFFICE/OUTPATIENT NEW HIGH MDM 60 MINUTES Laure Corona NP [address] [place] [address] Bhakti Prasad, PT [address] [address] Referral ID Status Reason Start Date Expiration Date Visits Requested Visits Authorized [id number] Pending Review Consult and Treat 05/20/2023 11/16/2023 [...] DATE CREATED AUTHOR AUTHOR'S ORGANIZ ATION 05/03/2023 [facility] DATE CREATED AUTHOR AUTHOR'S ORGANIZ ATION 10/17/2023 [facility] dical Specialists EPIC Care Teams (unrecognized sec tion and content) Team Status: Active Member Role Status Dates Olu Johnson MD Primary Care Provider Active Team Status: Inactive Member Role Status Dates Candelaria Falk , PUBLICATIONS DISTRIBUTION CLERK Emergency Provider Active Olu Johnson MD Primary Care Provider Active Scientist/Engineer Relationship Specialty Start Date End Date Olu Johnson MD [address] [place] [address] PCP - General Family Medicine 05/01/23 Laure Corona NP [address] [place] [address] Nurse Practitioner Family Medicine 05/01/23 Scientist/Engineer Relationship Specialty Start Date End Date Olu Johnson MD [address] [place] [address] PCP - General Family Medicine 05/01/23 Laure Corona NP [address] [place] [address] Nurse Practitioner Family Medicine 05/01/23 Scientist/Engineer Relationship Specialty Start Date End Date Olu Johnson MD [address] [place] [phone] PCP - General Family Medicine 05/01/23 Laure Corona NP [address] [place] [address] Nurse Practitioner Family Medicine 05/01/23 Scientist/Engineer Relationship Specialty Start Date End Date Olu Johnson MD [address] [place] [address] PCP - General Family [facility] 05/01/23 Laure Corona NP [address] [place] [address] Nurse Practitioner [facility] 05/01/23 Scientist/Engineer Relationship Specialty Start Date End Date Olu Johnson MD [address] [place] [address] PCP - General [facility] 05/01/23 Laure Corona NP [address] [place] [address] Nurse Practitioner [facility] 05/01/23 Goals (unrecognized section and content) Goals [...] BE BASED ON THE PRIMARY CLINICAL RECORDS. [employer] [facility]. provides no warranty or guarantee of the accuracy or completeness of information in this document.
[2023-11-06] MEDS: HYDROCHLOROTHIAZIDE 25 MG TABLET PO (18:38)
[2023-11-06] MEDS: ENOXAPARIN SODIUM 40 MG/0.4 ML SYRINGE SUBQ (18:38)
[2023-11-06] MEDS: ATORVASTATIN CALCIUM 20 MG TABLET PO (20:55)
[2023-11-06] MEDS: CARVEDILOL 3.125 MG TABLET PO (20:55)
[2023-11-06] MEDS: LISINOPRIL 20 MG TABLET PO (20:55)
[2023-11-06] MEDS: ACETAMINOPHEN 325 MG TABLET 650 MG PO (20:55)
[2023-11-07] VITALS (15 sets, daily range): BP systolic 109–155; BP diastolic 61–71; PULSE 60–76; TEMP 36.8–37.2; O2SAT 88–91
[2023-11-07 05:46] LABS: Basophils Absolute Auto 0.1 10^3/uL (0.0-0.1); Basophils Percent Auto 0.9 % (0.2-2.0); Eosinophils Absolute Auto 0.1 10^3/uL (0.0-0.7); Eosinophils Percent Auto 1.2 % (0.9-7.0); Hematocrit 33.2 % (36.0-48.0); Hemoglobin 10.6 g/dL (12.0-16.0); Immature Granulocytes Abs Auto 0.03 10^3/uL (0.00-0.03); Immature Granulocytes Pct Auto 0.4 % (0.0-0.5); Lymphocytes Absolute Auto 1.7 10^3/uL (1.2-3.8); Lymphocytes Percent Auto 25.1 % (20.5-60.0); Mean Corpuscular HGB Conc 31.9 g/dL (29.9-35.2); Mean Corpuscular Hemoglobin 30.9 pg (26.7-34.0); Mean Corpuscular Volume 96.8 fL (81.0-99.0); Mean Platelet Volume 10.6 fL (9.5-13.5); Monocytes Absolute Auto 0.6 10^3/uL (0.3-0.8); Monocytes Percent Auto 9.4 % (1.7-12.0); Neutrophils Absolute Auto 4.2 10^3/uL (1.4-6.5); Platelet Count 169 10^3/uL (150-450); Red Blood Count 3.43 10^6/uL (4.20-5.40); Red Cell Distribution Width 13.7 % (11.0-15.0); White Blood Count 6.7 10^3/uL (4.0-11.0)
[2023-11-07] MEDS: LEVOTHYROXINE SODIUM 25 MCG TABLET PO (05:49)
[2023-11-07] MEDS: ACETAMINOPHEN 325 MG TABLET 650 MG PO (05:49)
--- NOTE | 2023-11-07 06:00 | CA_ITS ---
Patient Name: MARK SAL MR#: [id number] : 1955 Exam Date: 11/07/2023 Ordering Doctor: Paulina Harvey ECHOCARDIOGRAM REPORT PROCEDURE: CA ECHO DOPPLER COMPLETE INDICATIONS: SOB, pulmonary edema, elevated BNP, hypertension COMPARISON: None. DESCRIPTION: COMPLETE ECHOCARDIOGRAM Real-time transthoracic echocardiography with 2D, M-mode, spectral and color flow Doppler performed. QUALITY: Technical quality was good. LEFT VENTRICLE: Normal chamber size. Normal left ventricular wall thickness. Normal systolic function. LV EF: Normal left ventricular ejection fraction, (>55%). DIASTOLIC: Diastolic function is indeterminate. ATRIAL SEPTUM: Visually appears intact. LEFT ATRIUM: Mild dilatation. RIGHT ATRIUM: Normal chamber size. RIGHT VENTRICLE: Normal chamber size. Normal right ventricular systolic function. TRICUSPID VALVE: Normal mobility and thickness. No stenosis with trivial regurgitation. No evidence of pulmonary hypertension. RVSP 26 mmHg MITRAL VALVE: Normal mobility and thickness. No evidence of mitral valve stenosis. Mild mitral annular calcification. Trivial mitral regurgitation. AORTIC VALVE: Normal trileaflet appearance. Mildly calcified aortic valve. Normal leaflet mobility. No evidence of aortic valve stenosis. No aortic regurgitation. AORTIC ROOT: Normal diameter and appearance. PULMONIC VALVE: Not well visualized. Normal with No regurgitation. PERICARDIUM: No evidence of pericardial effusion. IVC: Collapses with inspirations. IVC is normal in size. PLEURA: CONCLUSION: 1. Normal ventricular size and systolic function. LVEF is estimated at 55 to 60%. 2. Mild left atrial dilatation. 3. No significant valvular dysfunction. 4. Normal right-sided pressures. Adult Echocardiography Procedure Report Left Ventricle LVEDD (3.7 - 5.6 cm): 4.47 cm LVESD (2.2 - 4.0 cm): 3.02 cm LVIVS thickness (0.6 - 1.2 cm): 0.99 cm LVPW thickness (0.5 - 1.0 cm): 0.74 cm e': 0.08 m/s E - e': 11.16 LVOT Max Gradient: 7.74 mm[Hg] LVOT Area (cm2): 1.39 m/s Peak Velocity (LVOT): 1.39 m/s Mean Velocity (LVOT): 0.99 m/s LVOT Diameter 1.96 cm Left Atrium LA Volume Index (2D A2C): 26.84 ml/m2 Left Atrium Systolic Dimension: 3.49 cm Mitral Valve MV E to A Ratio: 0.85 Mitral Valve A-Wave Peak Velocity: 1.05 m/s Mitral Valve E-Wave Peak Velocity: 0.90 m/s Right Ventricle Aorta AO Root Diam: 3.11 cm Aortic Valve AoV Area (Peak Darvin): 1.69 cm2, 1.69 cm2 AoV Area (VTI): 1.58 cm2, 1.58 cm2 Peak Velocity(Antegrade Flow): 2.47 m/s Peak Gradient(Antegrade Flow): 24.37 mm[Hg] Mean Velocity(Antegrade Flow): 1.65 m/s Mean Gradient(Antegrade Flow): 12.40 mm[Hg] Velocity Time Integral: 56.09 cm Tricuspid Valve Peak Velocity (Regurgitant Flow): 2.42 m/s Pulmonic Valve Mean Gradient: 1.36 mm[Hg] Mean Velocity: 0.56 m/s Peak Velocity: 0.78 m/s, 0.92 m/s Peak Gradient: 3.36 mm[Hg], 2.43 mm[Hg] Right Atrium Right Atrium Systolic Pressure: 23.64 ml, 23.64 ml Dictated by: Bola Silva M.D. on 11/07/2023 at 17:41 Approved by: Bola Silva M.D. on 11/07/2023 at 17:43
[2023-11-07 06:22] LABS: Alanine Aminotransferase 31 U/L (14-59); Albumin Globulin Ratio 1.1; Albumin Level 3.1 g/dL (3.4-5.0); Alkaline Phosphatase 67 U/L (46-116); Anion Gap 14.5; Aspartate Amino Transferase 19 U/L (15-37); BUN Creatinine Ratio 13.6; Bilirubin Total 0.8 mg/dL (0.2-1.0); Calcium 8.3 mg/dL (8.5-10.1); Carbon Dioxide 25.1 mmol/L (21.0-32.0); Chloride 105 mmol/L (98-107); Estimated GFR (African America >60 (>=60); Estimated GFR (Non-African Ame >60 (>=60); Globulin 2.8 g/dL; Glucose 82 mg/dL (74-106); Potassium 3.6 mmol/L (3.5-5.1); Sodium 141 mmol/L (136-145); Total Protein 5.9 g/dL (6.4-8.2)
[2023-11-07] MEDS: LISINOPRIL 20 MG TABLET PO (08:23)
[2023-11-07] MEDS: SERTRALINE HCL 50 MG TABLET 25 MG PO (08:23)
[2023-11-07] MEDS: POTASSIUM CHLORIDE 10 MEQ ER TABLET PO (08:23)
[2023-11-07] MEDS: HYDROCHLOROTHIAZIDE 25 MG TABLET PO (08:23)
[2023-11-07] MEDS: FUROSEMIDE 20 MG/2 ML VIAL IVP (08:23)
[2023-11-07] MEDS: CARVEDILOL 3.125 MG TABLET PO ×2 (08:23→09:06)
--- NOTE | 2023-11-07 08:36 | XR_ITS ---
The [address] [address] Patient Name: MARK SAL MRN: [id number] date: 1955 Sex: F Assigned Patient Location: [place] Current Patient Location: [place] Accession/Order Number: [id number] Exam Date: 11/07/2023 09:00 Report Date: 11/07/2023 09:17 At the request of: LANI LONGO Procedure: XR chest 1V EXAM: XR chest 1V HISTORY: Hypoxia COMPARISON: 11/06/2023 TECHNIQUE: AP portable FINDINGS: LUNGS: No significant pulmonary parenchymal abnormalities. VASCULATURE: No increased pulmonary vasculature. PLEURA: No pneumothorax, effusion, or pleural thickening. CARDIAC: No cardiomegaly or cardiac silhouette abnormality. MEDIASTINUM: No visible mass or adenopathy. BONES: No fracture or visible bone lesion. OTHER: Negative. XR/XR chest 1V IMPRESSION: No acute radiographic abnormality Electronically authenticated by: JIMENEZ OLIVA Date: 11/07/2023 09:17
[2023-11-07] MEDS: BUTALB/ACETAMINOPHEN/CAFFEINE 50-325-40MG TABLET 1 TAB PO (09:50)
--- NOTE | 2023-11-07 10:57 | SWNOTE1 ---
SW attempted to see pt 2x this morning. 1st time she was using restroom and 2nd attempt she was sleeping. Daughter was in room both times, she wanted pt to sleep so SW did not wake her.
--- NOTE | 2023-11-07 11:19 | CM.NOTE ---
Rounds made with Dr. Almeida. Dr Almeida discussed labs and plan of care including adjustment of BP med. Edilma Verbalized understanding. Edilma did state SOB improved but has bad HAWK. Plan is for possible discharge later today if HAWK improved.
--- NOTE | 2023-11-07 12:12 | SWNOTE1 ---
SW met with pt to discuss dc needs. Pt is independent and has no anticipated discharge needs. Medicare Outpatient Observation Notice reviewed and discussed with patient. Pt. verbalized understanding and signed the form. Original given to patient and copy placed in patient?s chart.
[2023-11-07 15:30] LABS: D Dimer 0.27 mg/L FEU (<=0.59)
[2023-11-07] MEDS: KETOROLAC TROMETHAMINE 30 MG/ML VIAL IVP (16:32)
--- NOTE | 2023-11-07 16:32 | P.DS_ITS ---
<Statement entered by Jaison Almeida MD - 11/07/23 22:57> This documentation has been reviewed and approved. Pt seen and examined, no complaints agree with inoput and plan as reviewed adn provided by drink box mechanic DS: Providers Provider Date of admission: 11/06/23 17:08 Primary care physician: Olu Coelho MD Discharging clinician: Paulina Harvey DS: Diagnosis Discharge Diagnosis (1) Hypertensive urgency: (2) Elevated brain natriuretic peptide (BNP) level: (3) Headache: (4) Anxiety: (5) Hypothyroidism: (6) Hyperlipidemia: DS: Summary Hospital Course Hospital Course: The patient was admitted in observation for hypertensive urgency and associated headache. The patient was treated with multiple modalities, but initially her first improvement in blood pressure was after administration of Ativan, thus anxiety is suspected to be partially driving her hypertension. The patient had not been taking her sertraline that was recently prescribed for anxiety as she thought she could just take it when she felt anxious. She has been instructed to take this on a daily basis to improve her anxiety management. She was given hydrochlorothiazide and tolerated this well with improvement in her blood pressure. On the day of discharge her Coreg was increased and she tolerated this well without bradycardia or hypotension. She did have a mildly elevated proBNP and suggestion of pulmonary edema on her initial chest x-ray. A 2D echo was obtained during her stay and official cardiology reading is still pending, however her LVEF is 55 to 60%. The patient was borderline hypoxic on her day of discharge and she was given a dose of Lasix due to concern for fluid overload after receiving a fluid bolus in the ED. She appeared euvolemic at the time of discharge. A repeat chest x-ray was unremarkable and no evidence of pulmonary edema was noted. A D-dimer was negative and thus PE is not suspected. She remains borderline hypoxic (90-92%) with activity but she does not appear to be dyspneic and denies shortness of breath. She is being discharged home in stable condition with prescriptions for hydrochlorothiazide and increased dosing of Coreg. She should follow-up with her PCP in 5 to 7 days. She is instructed to return to the ED if she becomes short of breath. Time Spent with Patient Time attestation: Total time spent providing and/or coordinating discharge services: Time spent: greater than 30 minutes Specific discharge activities: Physical exam, discussion of discharge plan, questions answered. Exam Constitutional Vital Signs, click to edit/add: Last Vital Signs Temp 98.2 F 11/07/23 12:06 Pulse 71 11/07/23 16:14 Resp 14 11/07/23 12:06 BP 109/61 11/07/23 12:06 Pulse Ox 90 L 11/07/23 16:14 O2 Del Method Room Air 11/07/23 16:14 Common normals: no apparent distress, oriented x3 and alert General appearance: cooperative Orientation/consciousness: Yes awake HENMT Common normals: normocephalic and head/scalp atraumatic Eye Common normals: PERRL, EOMs intact bilaterally, conjunctivae normal and no scleral icterus Neck & C-Spine Common normals: no JVD Respiratory Common normals: normal respiratory effort and no use of accessory muscles Effort & inspection: able to speak in complete sentences and symmetric chest movement Auscultation: rales (Faint rales RLL) and diminished lung sounds (BLL) Cardio Common normals: no JVD, regular rate, regular rhythm, S1 normal heart sound, S2 normal heart sound, no murmurs and peripheral pulses 2+ throughout Heart sounds: murmur (HSM 2/6) GI Common normals: Normal to inspection, nondistended, normoactive bowel sounds present, soft to palpation and non-tender Bladder/kidney exam: bladder normal to palpation Extremity Common normals: normal to inspection, full ROM and normal capillary refill General: edema (Tr-1+ bilat shins and insteps); no clubbing and no cyanosis Neuro Common normals: moves all extremities, no focal motor deficits and no sensory deficits noted Speech: speech normal Psych Common normals: mental status grossly normal and activity/motor behavior normal DS: Data Data Completed and Pending Completed studies during hospitalization: CXR, Head CT, 2D Echo Labs on day of discharge: Labs from last 24 hours 11/07/23 11/07/23 14:48 05:16 WBC 6.7 RBC 3.43 L Hgb 10.6 L Hct 33.2 L MCV 96.8 MCH 30.9 MCHC 31.9 RDW 13.7 Plt Count 169 MPV 10.6 Neut % (Auto) 63.0 Lymph % (Auto) 25.1 [place] % (Auto) 9.4 Eos % (Auto) 1.2 Baso % (Auto) 0.9 Neut # (Auto) 4.2 Lymph # (Auto) 1.7 [place] # (Auto) 0.6 Eos # (Auto) 0.1 Baso # (Auto) 0.1 Abs Immat Gran (auto) 0.03 Imm/Tot Granulo (auto) 0.4 D-Dimer 0.27 Sodium 141 Potassium 3.6 Chloride 105 Carbon Dioxide 25.1 Anion Gap 14.5 BUN 12.0 Creatinine 0.88 Est GFR ( Amer) >60 Est GFR (Non-Af Amer) >60 BUN/Creatinine Ratio 13.6 Glucose 82 Calcium 8.3 L Total Bilirubin 0.8 AST 19 ALT 31 Alkaline Phosphatase 67 NT-Pro-B Natriuret Pep 1864.0 H* Total Protein 5.9 L Albumin 3.1 L Globulin 2.8 Albumin/Globulin Ratio 1.1 Imaging Chest x-ray: Attestation: I have reviewed the pertinent imaging results. Radiologist's impression: 11/07/23 IMPRESSION: No acute radiographic abnormality Discharge Plan Discharge Disposition: Home, Self-Care Condition: Good Discharge Medications: New carvedilol 6.25 mg tablet 6.25 mg PO BID Qty: 60 0RF Rx Instructions: Must administer with a meal/food. hydrochlorothiazide 25 mg tablet 25 mg PO DAILY Qty: 30 0RF Continued sertraline 25 mg tablet 25 mg PO DAILY lisinopril 20 mg tablet 20 mg PO BID levothyroxine 25 mcg tablet 25 mcg PO DAILY simvastatin 40 mg tablet 40 mg PO QPM Discontinued carvedilol 3.125 mg tablet 3.125 mg Activity: increase activity as tolerated Diet: advance to your usual diet Print Language: Romanian Activity Restrictions/Additional Instructions: - May take two 3.125 carvedilol tabs to equal 6.25 dosing until your previous prescription is gone. - Return to the ED if you become short of breath Forms: Portal Instructions Follow Up Appointments: November 12 @ 2pm with Dr. Lugo [phone]
--- NOTE | 2023-11-11 11:36 | CM.DCFOLLOWU ---
1st attempt 11/11/23
== END 2023-11-07 17:37 | disposition home or self-care (01) ==
LOC: ER 16:31 → MS 17:20
PROVIDERS: Physician Assistant; Admitting Provider Family Medicine; Emergency Provider Emergency Medicine; PCP Family Medicine; Visit Provider Nurse Practitioner
DX: I16.0 Hypertensive urgency (principal); R51.9 Headache, unspecified; R79.89 Other specified abnormal findings of blood chemistry; F41.9 Anxiety disorder, unspecified; E03.9 Hypothyroidism, unspecified; E78.5 Hyperlipidemia, unspecified; Z79.899 Other long term (current) drug therapy; Z79.890 Hormone replacement therapy; Z87.891 Personal history of nicotine dependence; R06.02 Shortness of breath; I10 Essential (primary) hypertension
CPT/HCPCS: 36415; 70450; 71045; 80048; 80053; 83735; 83880; 84443; 84484; 85025; 85378; 85610; 93005; 93306; 94667; 96372; 96374; 96375; 99284; 99285; G0378; J0360; J1650; J1885; J1940; J2060; J2270; J2405

== ENCOUNTER 2023-11-15 08:16 | Outpatient (OUT) | payer MEDICARE, SELFPAY ==
--- OUTSIDE RECORDS SUMMARY | 2023-11-15 08:21 | XMS_ITS | CCD ---
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 Role Phone ELIZABETH, DR OLU [...] Unavailable NADERER, DR OLU Martinez Referring Unavailable CARMEL, DR JIMENEZ Hernandez Consulting Unavailable NADERER, DR OLU Martinez Attending Unavailable NADERER, DR OLU Martinez Consulting Unavailable CECILY Falk Emergency Provider [phone] MD Olu Johnson Primary Care Provider Candelaria Falk Attending Unavailable Candelaria Falk Admitting Unavailable Olu Johnson Primary Care Unavailable Aichholz SUPERVISOR SHED WORKERS, Laure Unavailable Olu Johnson MD Primary Care [...] LAURE Attending Unavailable AICHHOLZ, LAURE Attending Unavailable SHAIKH WRIGHT Attending Unavailable Allergies Allergy Classification Reported Allergen(s) Allergy Type Date of Onset Reaction(s) Facility (1 source) Cephalexin Drug Allergy 07-28-19 [facility] Repository (1 source) Ciprofloxacin Drug Allergy 07-28-19 [facility] (1 source) Penicillin Drug Allergy 07-28-19 [facility] (8 sources) Cephalexin; Translations: [cephalexin] Drug Allergy 11-11-19 Dizziness, Rash [facility] (2 sources) Ciprofloxacin; Translations: [ciprofloxacin] Drug Allergy 04-25-20 Gastrointestinal Upset [facility] (8 sources) Penicillins; Translations: [Penicillins] Allergy to substance 04-25-20 [facility] (6 sources) Naproxen Drug Allergy 05-20-19 [...] 04-25-2023 Episodic Other aftercare (1 source) Other emt intermediate (current) drug therapy; Translations: [OTH PROGRAMMING INTERN CURRENT DRUG THERAPY] Onset: 07-31-2022 Episodic Other [...] [Ratio] 13.2 % 11.0 - 15.0 % [facility] Hematocrit (Bld) [Volume fraction] 41.7 % 36.0 - 48.0 % [facility] Hemoglobin (Bld) [Mass/Vol] 13.2 g/dL 12.0 - 16.0 g/dL [facility] IMMATURE GRANULOCYTES ABS AUTO 0.04 High [facility] Immature granulocytes/100 WBC (Bld) 0.6 % High 0.0 - 0.5 % [facility] Interpretation and review of laboratory results Abnormal [facility] LYMPHOCYTES ABSOLUTE AUTO 2.5 [facility] Lymphocytes/100 WBC (Bld) 38.4 % 20.5 - 60.0 % [facility] MCH (RBC) [Entitic mass] 30.6 pg 26.7 - 34.0 pg [facility] MCHC (RBC) [Mass/Vol] 31.7 g/dL 29.9 - 35.2 g/dL [facility] MCV (RBC) [Entitic vol] 96.5 fL 81.0 - 99.0 fL [facility] MONOCYTES ABSOLUTE AUTO 0.8 [facility] Monocytes/100 WBC (Bld) 11.8 % 1.7 - 12.0 % [facility] NEUTROPHILS ABSOLUTE AUTO 2.9 [facility] Neutrophils/100 WBC (Bld) 44.5 % 43.0 - 75.0 % [facility] Platelet mean volume (Bld) [Entitic vol] 10.2 fL 9.5 - 13.5 fL [facility] TBH EO # 0.2 [facility] PLT 259 [facility] RBC 4.32 [facility] WBC 6.6 [facility] Activated partial thrombopla stin time (aPTT) in platelet poor plasma by coagulation aOrdered By: Candelaria Falk on 04-25-2023 aPTT Coag (PPP) [Time] 27.5 s 25.1-36.5 [facility] Comment on above: A hematocrit value g reater than 55% may lead to inaccurate results in coagulation testing. Patients having hematocrit values >55% require a special collection tube for coagulation studies. Please contact the laboratory at [phone] for redraw instructions. B-Type Natriuretic Peptideon 12-14-2023 Natriuretic peptide B (Bld) [Mass/Vol] 44.0 pg/mL Normal 5-100 [facility] Comment on above: Result Comment: PERF ORMED BY: [place] [address] PATHOLOGIST NAVAL ENGINEER YUSRA WHITE M.D. Performed By: #### P TT, BMP, CBC, HS TROP, PT, BNP #### [address] Basic Metabolic Panelon 12- Anion gap [Moles/Vol] 12.1 mmol/L Normal 6.0-15.0 [facility] Comment on above: Performed By: #### P TT, BMP, CBC, HS TROP, PT, BNP #### [address] Calcium [Mass/Vol] 9.5 mg/dL Normal 8.6-10.3 [facility] Comment on above: Performed By: #### P TT, BMP, CBC, HS TROP, PT, BNP #### [address] Chloride [Moles/Vol] 103 mmol/L Normal 98-107 [facility] Comment on above: Performed By: #### P TT, BMP, CBC, HS TROP, PT, BNP #### [address] CO2 [Moles/Vol] 27.0 mmol/L Normal 21.0-31.0 [facility] Comment on above: Performed By: #### P TT, BMP, CBC, HS TROP, PT, BNP #### [address] Creatinine [Mass/Vol] 0.81 mg/dL Normal 0.60-1.20 [facility] Comment on above: Performed By: #### P TT, BMP, CBC, HS TROP, PT, BNP #### [place] [address] [place] Creatinine Clr Calc Pharmacy 57.40 Normal [facility] Comment on above: Result Comment: PERF ORMED BY: [place] [address] PATHOLOGIST NAVAL ENGINEER YUSRA WHITE M.D. Performed By: #### P TT, BMP, CBC, HS TROP, PT, BNP #### [facility] [address] [place] [address] [place] GFR/1.73 sq M.predicted MDRD (S/P/Bld) [Vol rate/Area] mL/min/{1.73_m2} Normal [facility] Comment on above: Performed By: #### P TT, BMP, CBC, HS TROP, PT, BNP #### [facility] [address] Glucose [Mass/Vol] 87 mg/dL Normal 70-100 [facility] Comment on above: Result Comment: [facility] Glucose Reference Range is dependent on time and content of last meal. Glucose of more than 200 mg/dL in a nonstressed, ambulatory subject supports the diagnosis of Diabetes Mellitus. ADA recommended reference range Performed By: #### P TT, BMP, CBC, HS TROP, PT, BNP #### [facility] [address] Potassium [Moles/Vol] 4.1 mmol/L Normal 3.5-5.1 [facility] Comment on above: Performed By: #### P TT, BMP, CBC, HS TROP, PT, BNP #### [facility] [address] [place] [address] [place] Sodium [Moles/Vol] 138 mmol/L Normal 136-145 [facility] Comment on above: Performed By: #### P TT, BMP, CBC, HS TROP, PT, BNP #### [facility] [address] [place] [address] [place] Urea nitrogen [Mass/Vol] 17 mg/dL Normal 7-25 [facility] Comment on above: Performed By: #### P TT, BMP, CBC, HS TROP, PT, BNP #### [facility] [address] [place] [address] [place] Basophils Auto (Bld) [#/Vol] Ordered By: Candelaria Falk on 04-25-2023 Basophils (Bld) [#/Vol] 0.0 10*3/uL 0.0-0.2 [facility] Basophils/100 WBC Auto (Bld) Ordered By: Candelaria Snelltata on 04-25-2023 Basophils/100 WBC (Bld) 0.3 % . [facility] COVID CepheidOrdered By: Carie richard Snelltata on 04-25-2023 SARS-CoV-2 (COVID-19) Ab IA Ql Negative Negative [facility] Comment on above: This is a duplicate Cepheid Xpert Xpress CoV-2/Flu/RSV Plus RNA by RT-PCR result to be used for statistical tracking purpose only. SARS-CoV-2 (COVID-19) RNA CASSIDY+probe Ql (Unsp spec) [facility] COVID-19 / Flu A/B / RSV [...] or Cepheid Disclaimer revoked sooner. PERFORMED BY: [place] [address] PATHOLOGIST NAVAL ENGINEER YUSRA WHITE M.D. [facility] Comment on above: Performed By: #### C EPHEID NEG, COVID19 FLU RSV #### [address] head/brain wo conon 04-25 CT head/brain wo con [facility] [place] [address] [place] [address] CT Scan Report Signed Patient: Edilma Leonardo MR#: [id number] : 1955 Acct:[id number] Age/Sex: 67 / F ADM Date: 04/25/23 Loc: ER Room: Type: [facility] ER Attending Dr: Copies to: Candelaria [...] chronic microvascular ischemic change. Impression dictated by: aLmin Park M.D.04/25/2023 9:04 PM Dictation Location: [place] [address] Transcribed By: [facility] 04/25/232103 Dictated By: Lamin Park II, MD 04/25/232101 Signed By: 04/25/232103 Normal [facility] Calcium [Mass/volume] in Ser um or PlasmaOrdered By: Candelaria Falk on 04-25-2023 Calcium [Mass/Vol] 9.5 mg/dL 8.6-10.3 [facility] Carbon dioxide, total [Moles /volume] in Serum or PlasmaOrdered By: Candelaria Falk on 04-25-2023 CO2 [Moles/Vol] 27.0 mmol/L 21.0-31.0 [facility] Cepheid COVID PCR Negativeon 04-25-2023 SARS-CoV-2 (COVID-19) RNA CASSIDY+probe Ql (Unsp spec) Negative Normal Negative [facility] Comment on above: Result Comment: This is a duplicate Cepheid Xpert Xpress CoV-2/Flu/RSV Plus RNA by RT-PCR result to be used for statistical tracking purpose only. PERFORMED BY: [place] [address] PATHOLOGIST NAVAL ENGINEER YUSRA WHITE M.D. Performed By: #### C EPHEID NEG, COVID19 FLU RSV #### [address] Chloride [Moles/volume] in S pawel or PlasmaOrdered By: Candelaria Falk on 04-25-2023 Chloride [Moles/Vol] 103 mmol/L 98-107 [facility] Complete Blood Count Auto Di ffon 04-25-2023 Basophils (Bld) [#/Vol] 0.0 10*3/uL Normal 0.0-0.2 [facility] Comment on above: Result Comment: PERF ORMED BY: [place] [address] PATHOLOGIST NAVAL ENGINEER YUSRA WHITE M.D. Performed By: #### P TT, BMP, CBC, HS TROP, PT, BNP #### [address] Basophils/100 WBC (Bld) 0.3 % Normal . [facility] Comment on above: Performed By: #### P TT, BMP, CBC, HS TROP, PT, BNP #### [address] Eosinophils (Bld) [#/Vol] 0.2 10*3/uL Normal 0.0-0.45 [facility] Comment on above: Performed By: #### P TT, BMP, CBC, HS TROP, PT, BNP #### [address] Eosinophils/100 WBC (Bld) 2.6 % Normal . [facility] Comment on above: Performed By: #### P TT, BMP, CBC, HS TROP, PT, BNP #### [facility] [address] [place] [address] Erythrocyte distribution width (RBC) [Ratio] 13.5 % Normal 11.9-15.3 [facility] Comment on above: Performed By: #### P TT, BMP, CBC, HS TROP, PT, BNP #### [address] Hematocrit (Bld) [Volume fraction] 42.5 % Normal 34.0-46.4 [facility] Comment on above: Performed By: #### P TT, BMP, CBC, HS TROP, PT, BNP #### [address] Hemoglobin (Bld) [Mass/Vol] 14.4 g/dL Normal 11.8-15.4 [facility] Comment on above: Performed By: #### P TT, BMP, CBC, HS TROP, PT, BNP #### [address] Lymphocytes (Bld) [#/Vol] 2.9 10*3/uL Normal 1.00-4.8 [facility] Comment on above: Performed By: #### P TT, BMP, CBC, HS TROP, PT, BNP #### [address] Lymphocytes/100 WBC (Bld) 40.1 % Normal . [facility] Comment on above: Performed By: #### P TT, BMP, CBC, HS TROP, PT, BNP #### [address] MCH (RBC) [Entitic mass] 31.9 pg Normal 24.7-34.3 [facility] Comment on above: Performed By: #### P TT, BMP, CBC, HS TROP, PT, BNP #### [address] MCV (RBC) [Entitic vol] 93.8 fL Normal 80-100 [facility] Comment on above: Performed By: #### P TT, BMP, CBC, HS TROP, PT, BNP #### [address] Mean Corpuscular HGB Conc 34.0 g/dL Normal 32.0-35.0 [facility] Comment on above: Performed By: #### P TT, BMP, CBC, HS TROP, PT, BNP #### [address] Monocytes (Bld) [#/Vol] 0.6 10*3/uL Normal 0.0-0.8 [facility] Comment on above: Performed By: #### P TT, BMP, CBC, HS TROP, PT, BNP #### [address] Monocytes/100 WBC (Bld) 20.21 % High 0.00-20.00 [facility] Comment on above: Result Comment: For adults in ED, MDW > 20.0 may be associated with a higher risk of sepsis during the first 12 hrs of hospital admission Performed By: #### P TT, BMP, CBC, HS TROP, PT, BNP #### [address] Monocytes/100 WBC (Bld) 7.9 % Normal . [facility] Comment on above: Performed By: #### P TT, BMP, CBC, HS TROP, PT, BNP #### [address] Neutrophils (Bld) [#/Vol] 3.5 10*3/uL Normal 1.8-7.7 [facility] Comment on above: Performed By: #### P TT, BMP, CBC, HS TROP, PT, BNP #### [address] Neutrophils/100 WBC (Bld) 49.1 % Normal . [facility] Comment on above: Performed By: #### P TT, BMP, CBC, HS TROP, PT, BNP #### [address] NRBC% 0.0 /100{WBC} Normal 0-0.5 [facility] Comment on above: Performed By: #### P TT, BMP, CBC, HS TROP, PT, BNP #### [address] Platelet mean volume (Bld) [Entitic vol] 8.1 fL Normal 6.3-10.7 [facility] Comment on above: Performed By: #### P TT, BMP, CBC, HS TROP, PT, BNP #### [address] Platelets (Bld) [#/Vol] 247 10*3/uL Normal 150-450 [facility] Comment on above: Performed By: #### P TT, BMP, CBC, HS TROP, PT, BNP #### [facility] [address] RBC (Bld) [#/Vol] 4.53 10*6/uL Normal 3.60-5.00 [facility] Comment on above: Performed By: #### P TT, BMP, CBC, HS TROP, PT, BNP #### [facility] [address] WBC (Bld) [#/Vol] 7.2 10*3/uL Normal 3.8-11.6 [facility] Comment on above: Performed By: #### P TT, BMP, CBC, HS TROP, PT, BNP #### [facility] [address] Creatinine [Mass/volume] in Serum or PlasmaOrdered By: Candelaria Falk on 04-25-2023 Creatinine [Mass/Vol] 0.81 mg/dL 0.60-1.20 [facility] ECG 12 lead ECGon 04-25-2023 ECG 12 lead ECG [facility] [place] [address] [place] [address] Electrocardiograph Report Signed Patient: Edilma Leonardo MR#: [id number] : 1955 Acct:[id number] Age/Sex: 67 / F ADM Date: 04/25/23 [...] sinus rhythm Confirmed by Santiago BLAKE DO ([id number]) on 04/25/2023 6:14:25 PM Referred By: Electronically Signed By:Santiago BLAKE DO Transcribed By: [facility] Signed By Santiago Blake DO [address] [facility] Eosinophils Auto (Bld) [#/Vo l]Ordered By: Candelaria Falk on 04-25-2023 Eosinophils (Bld) [#/Vol] 0.2 10*3/uL 0.0-0.45 [facility] Eosinophils/100 WBC Auto (Bl d)Ordered By: Candelaria Falk on 04-25-2023 Eosinophils/100 WBC (Bld) 2.6 % . [facility] Erythrocyte distribution wid th Auto (RBC) [Ratio]Ordered By: Candelaria Falk on 04-25-2023 Erythrocyte distribution width (RBC) [Ratio] 13.5 % 11.9-15.3 [facility] Glucose [Mass/volume] in Ser um or PlasmaOrdered By: Candelaria Falk on 04-25-2023 Glucose [Mass/Vol] 87 mg/dL 70-100 [facility] Comment on above: ADA recommended refe rence rangeRandom Glucose Reference Range is dependent on time and content of last meal. Glucose of more than 200 mg/dL in a nonstressed, ambulatory subject supports the diagnosis of Diabetes Mellitus. Hematocrit Auto (Bld) [Volum e fraction]Ordered By: Candelaria Falk on 04-25-2023 Hematocrit (Bld) [Volume fraction] 42.5 % 34.0-46.4 [facility] Hemoglobin [Mass/volume] in BloodOrdered By: Candelaria Falk on 04-25-2023 Hemoglobin (Bld) [Mass/Vol] 14.4 g/dL 11.8-15.4 [facility] INR in Platelet poor plasma by Coagulation assayOrdered By: Candelaria Falk on 04-25-2023 INR Coag (PPP) [Relative time] 1.0 {INR} [facility] Comment on above: INR Therapeutic Rang [...] Auto (Bld) [#/Vol] 7.2 10*3/uL 3.8-11.6 [facility] Lymphocytes Auto (Bld) [#/Vo l]Ordered By: Candelaria Falk on 04-25-2023 Lymphocytes (Bld) [#/Vol] 2.9 10*3/uL 1.00-4.8 [facility] Lymphocytes/100 WBC Auto (Bl d)Ordered By: Candelaria Falk on 04-25-2023 Lymphocytes/100 WBC (Bld) 40.1 % . [facility] MCH Auto (RBC) [Entitic mass ]Ordered By: Candelaria Falk on 04-25-2023 MCH (RBC) [Entitic mass] 31.9 pg 24.7-34.3 [facility] MCHC Auto (RBC) [Mass/Vol]Or dered By: Candelaria Falk on 04-25-2023 MCHC (RBC) [Mass/Vol] 34.0 g/dL 32.0-35.0 [facility] MCV Auto (RBC) [Entitic vol] Ordered By: Candelaria Falk on 04-25-2023 MCV (RBC) [Entitic vol] 93.8 fL 80-100 [facility] Monocyte distribution width [Entitic volume] in Blood by AutomatedOrdered By: Candelaria Falk on 04-25-2023 Monocyte distribution width Auto (Bld) [Entitic vol] 20.21 % 0.00-20.00 [facility] Comment on above: For adults in ED, MD W > 20.0 may be associated with a higher risk of sepsis during the first 12 hrs of hospital admission Monocytes Auto (Bld) [#/Vol] Ordered By: Candelaria Falk on 04-25-2023 Monocytes (Bld) [#/Vol] 0.6 10*3/uL 0.0-0.8 [facility] Monocytes/100 WBC Auto (Bld) Ordered By: Candelaria Falk on 04-25-2023 Monocytes/100 WBC (Bld) 7.9 % . [facility] Natriuretic peptide B [Mass/ Vol]Ordered By: Candelaria Falk on 04-25-2023 Natriuretic peptide B (Bld) [Mass/Vol] 44.0 pg/mL 5-100 [facility] Neutrophils Auto (Bld) [#/Vo l]Ordered By: Candelaria Falk on 04-25-2023 Neutrophils (Bld) [#/Vol] 3.5 10*3/uL 1.8-7.7 [facility] Neutrophils/100 WBC Auto (Bl d)Ordered By: Candelaria Falk on 04-25-2023 Neutrophils/100 WBC (Bld) 49.1 % . [facility] No Panel InformationOrdered By: Candelaria Falk on 04-25-2023 Estimated GFR (CKD-EPI) > 60.0 mL/Min [facility] Creatinine Clearance (Chem 57.40 [facility] Nucleated erythrocytes [Pres ence] in Blood by Automated countOrdered By: Candelaria Falk on 04-25-2023 Nucleated RBC Auto Ql (Bld) 0.0 /100{WBC} 0-0.5 [facility] Partial Thromboplastin Timeo n 04-25-2023 aPTT Coag (Bld) [Time] 27.5 s Normal 25.1-36.5 [facility] Comment on above: Result Comment: A he matocrit value greater than 55% may lead to inaccurate results in coagulation testing. Patients having hematocrit values >55% require a special collection tube for coagulation studies. Please contact the laboratory at [phone] for redraw instructions. PERFORMED BY: [place] [address] PATHOLOGIST NAVAL ENGINEER YUSRA WHITE M.D. Performed By: #### H S TROP #### [address] Platelet mean volume Auto (B ld) [Entitic vol]Ordered By: Candelaria Falk on 04-25-2023 Platelet mean volume (Bld) [Entitic vol] 8.1 fL 6.3-10.7 [facility] Platelets Auto (Bld) [#/Vol] Ordered By: Candelaria Falk on 04-25-2023 Platelets (Bld) [#/Vol] 247 10*3/uL 150-450 [facility] Potassium [Moles/volume] in Serum or PlasmaOrdered By: Candelaria Falk on 04-25-2023 Potassium [Moles/Vol] 4.1 mmol/L 3.5-5.1 [facility] Prothrombin Time INRon 04-25 INR Coag (PPP) [Relative time] 1.0 {INR} Normal [facility] Comment on above: Result Comment: INR [...] #### [facility] [address] PT Coag (PPP) [Time] 11.5 s Normal 9.0-12.9 [facility] Comment on above: Result Comment: A he matocrit value greater than 55% may lead to inaccurate results in coagulation testing. Patients having hematocrit values >55% require a special collection tube for coagulation studies. Please contact the laboratory at [phone] for redraw instructions. Performed By: #### P TT, BMP, CBC, HS TROP, PT, BNP #### [facility] [address] [place] [id number] [facility] Prothrombin time (PT)Ordered By: Candelaria Falk on 04-25-2023 PT Coag (PPP) [Time] 11.5 s 9.0-12.9 [facility] Comment on above: A hematocrit value g reater than 55% may lead to inaccurate results in coagulation testing. Patients having hematocrit values >55% require a special collection tube for coagulation studies. Please contact the laboratory at [phone] for redraw instructions. RBC Auto (Bld) [#/Vol]Ordere d By: Candelaria Falk on 04-25-2023 RBC (Bld) [#/Vol] 4.53 10*6/uL 3.60-5.00 [facility] Serum or plasma anion gap de terminationOrdered By: Candelaria Falk on 04-25-2023 Anion gap [Moles/Vol] 12.1 mmol/L 6.0-15.0 [facility] Sodium [Moles/volume] in Ser um or PlasmaOrdered By: Candelaria Falk on 04-25-2023 Sodium [Moles/Vol] 138 mmol/L 136-145 [facility] Troponin I High Sensitivityo n 04-25-2023 Troponin I High Sensitivity 3.8 pg/mL Normal 0.0-15.0 [facility] Comment on above: Result Comment: PERF ORMED BY: [place] [address] PATHOLOGIST NAVAL ENGINEER YUSRA WHITE M.D. Performed By: #### H S TROP #### [facility] [address] [place] [address] Troponin I High Sensitivity 3.9 pg/mL Normal 0.0-15.0 [facility] Comment on above: Result Comment: PERF ORMED BY: [place] [address] PATHOLOGIST NAVAL ENGINEER YUSRA WHITE M.D. Performed By: #### P TT, BMP, CBC, HS TROP, PT, BNP #### [facility] [address] [place] [address] Troponin I.cardiac [Mass/vol ume] in Serum or Plasma by Detection limit <= 0.01 ng/Ordered By: Candelaria Falk on 04-25-2023 Troponin I.cardiac DL <= 0.01 ng/mL [Mass/Vol] 3.8 pg/mL 0.0-15.0 [facility] Urea nitrogen [Mass/volume] in Serum or PlasmaOrdered By: Candelaria Falk on 04-25-2023 Urea nitrogen [Mass/Vol] 17 mg/dL 7-25 [facility] WBC Auto (Bld) [#/Vol]Ordere d By: Candelaria Falk on 04-25-2023 WBC (Bld) [#/Vol] 7.2 10*3/uL 3.8-11.6 [facility] XR chest 2V*on 04-25-2023 XR chest 2V* [facility] [place] [address] [place], [place] [id number] XRay Report Signed Patient: Edilma Leonardo MR#: [id number] : 1955 Acct:[id number] Age/Sex: 67 / F ADM Date: 04/25/23 Loc: ER Room: Type: [facility] ER Attending Dr: Copies to: Candelaria [...] Lamin Park M.D.04/25/2023 6:34 PM Dictation Location: [place] [address] Transcribed By: [facility] 04/25/231833 Dictated By: Lamin Park II, MD 04/25/231832 Signed By: 04/25/231833 Normal [facility] CBC W MANUAL DIFFon 07-28-19 23 ATYPICAL LYMPH # Normal [facility] Comment on above: Performed By: #### F T3, ALT, AST, BMP, TSH, LIPID #### [facility] [address] [place] [address] [address] Reji Pickett ATYPICAL LYMPH % Normal [facility] Comment on above: Performed By: #### F T3, ALT, AST, BMP, TSH, LIPID #### [facility] [address] [place] [address] [address] Reji Pickett BAND # Normal 0.0-0.3 [facility] Comment on above: Performed By: #### F T3, ALT, AST, BMP, TSH, LIPID #### [facility] [address] [place] [address] [address] Reji Pickett BAND % Normal 0-5 [facility] Comment on above: Performed By: #### F T3, ALT, AST, BMP, TSH, LIPID #### [facility] [address] [place] [address] [address] Reji MORELOM # 0.00 103/ul Normal 0.00-0.10 [facility] Comment on above: Performed By: #### F T3, ALT, AST, BMP, TSH, LIPID #### [facility] [address] [place] [address] [address] Reji Pickett BASOM % 0.0 % Critically low 0.2-2.0 [facility] Comment on above: Performed By: #### F T3, ALT, AST, BMP, TSH, LIPID #### [facility] [address] [place] [address] [address] Reji Pickett BLAST # Normal [facility] Comment on above: Performed By: #### F T3, ALT, AST, BMP, TSH, LIPID #### [facility] [address] [place] [address] [address] Reji Pickett BLAST % Normal [facility] Comment on above: Performed By: #### F T3, ALT, AST, BMP, TSH, LIPID #### [facility] [address] [place] [address] [address] Reji Pickett CORRECTED WBC Normal 4.0-11.0 [facility] Comment on above: Performed By: #### F T3, ALT, AST, BMP, TSH, LIPID #### [facility] [address] [place] [address] [address] Reji Pickett EOS # 0.10 103/ul Normal 0.00-0.70 [facility] Comment on above: Performed By: #### F T3, ALT, AST, BMP, TSH, LIPID #### [facility] [address] [place] [address] [address] Reji Pickett EOS% 1.0 % Normal 0.9-7.0 [facility] Comment on above: Performed By: #### F T3, ALT, AST, BMP, TSH, LIPID #### [facility] [address] [address] [address] Reji Pickett HCT 41.1 % Normal 36.0-48.0 [facility] Comment on above: Performed By: #### F T3, ALT, AST, BMP, TSH, LIPID #### [facility] [address] [address] [address] Reji Pickett HGB 13.6 g/dl Normal 12.0-16.0 [facility] Comment on above: Performed By: #### F T3, ALT, AST, BMP, TSH, LIPID #### [facility] [address] [place] [address] Dr. Reji Pickett LYMPHM # 0.40 103/ul Critically low 1.20-3.80 [facility] Comment on above: Performed By: #### F T3, ALT, AST, BMP, TSH, LIPID #### [facility] [address] [place] [address] Dr. Reji Pickett LYMPHM% 4.0 % Critically low 20.5-60.0 [facility] Comment on above: Performed By: #### F T3, ALT, AST, BMP, TSH, LIPID #### [facility] [address] [place] [address] Dr. Reji Pickett MCH 31.3 pg Normal 26.7-34.0 [facility] Comment on above: Performed By: #### F T3, ALT, AST, BMP, TSH, LIPID #### [facility] [address] [place] [address] Dr. Reji Pickett MCHC 33.1 g/dl Normal 29.9-35.2 [facility] Comment on above: Performed By: #### F T3, ALT, AST, BMP, TSH, LIPID #### [facility] [address] [place] [address] Dr. eRji Pikcett MCV 94.5 fL Normal 81.0-99.0 [facility] Comment on above: Performed By: #### F T3, ALT, AST, BMP, TSH, LIPID #### [facility] [address] [address] [address] Reji Pickett METAMYELOCYTE # Normal [facility] Comment on above: Performed By: #### F T3, ALT, AST, BMP, TSH, LIPID #### [facility] [address] [address] [address] Reji Pickett METAMYELOCYTE % Normal [facility] Comment on above: Performed By: #### F T3, ALT, AST, BMP, TSH, LIPID #### [facility] [address] [address] [address] Reji Pickett MONOM# 0.61 103/ul Normal 0.30-0.80 [facility] Comment on above: Performed By: #### F T3, ALT, AST, BMP, TSH, LIPID #### [facility] [address] [address] [address] Reji Pickett MONOM% 6.0 % Normal 1.7-12.0 [facility] Comment on above: Performed By: #### F T3, ALT, AST, BMP, TSH, LIPID #### [facility] [address] [address] [address] Reji Pickett MPV 9.8 fL Normal 9.5-13.5 [facility] Comment on above: Performed By: #### F T3, ALT, AST, BMP, TSH, LIPID #### [facility] [address] [address] [address] Reji Pickett MYELOCYTE # Normal [facility] Comment on above: Performed By: #### F T3, ALT, AST, BMP, TSH, LIPID #### [facility] [address] [address] [address] Reji Pickett MYELOCYTE % Normal [facility] Comment on above: Performed By: #### F T3, ALT, AST, BMP, TSH, LIPID #### [facility] [address] [address] [address] Reji Pickett NRBC Normal [facility] Comment on above: Performed By: #### F T3, ALT, AST, BMP, TSH, LIPID #### [facility] [address] [place] [address] Dr. Reji Pickett PLT 191 103/ul Normal 150-450 [facility] Comment on above: Performed By: #### F T3, ALT, AST, BMP, TSH, LIPID #### [facility] [address] [place] [address] Dr. Reji Pickett RBC 4.35 106/ul Normal 4.20-5.40 [facility] Comment on above: Performed By: #### F T3, ALT, AST, BMP, TSH, LIPID #### [facility] [address] [place] [address] Dr. Reji Pickett RDW 13.7 % Normal 11.0-15.0 [facility] Comment on above: Performed By: #### F T3, ALT, AST, BMP, TSH, LIPID #### [facility] [address] [place] [address] Dr. Reji Pickett SEG # 8.99 103/ul Critically high 1.40-6.50 [facility] Comment on above: Performed By: #### F T3, ALT, AST, BMP, TSH, LIPID #### [facility] [address] [place] [address] Dr. Reji Pickett SEG % 89.0 % Critically high 43.0-75.0 [facility] Comment on above: Performed By: #### F T3, ALT, AST, BMP, TSH, LIPID #### [facility] [address] [place] [address] Dr. Reji Pickett WBC 10.1 103/ul Normal 4.0-11.0 [facility] Comment on above: Performed By: #### F T3, ALT, AST, BMP, TSH, LIPID #### [facility] [address] [place] [address] Dr. Reji Pickett CPKon 07-27-2022 CK [Catalytic activity/Vol] 53 U/L Normal 26-192 [facility] Comment on above: Performed By: #### F T3, ALT, AST, BMP, TSH, LIPID #### [facility] [address] [place] [address] Dr. Reji Pickett ER URINE PROFILEon 3 Bilirubin Ql (U) Negative Normal NEGATIVE [facility] Comment on above: Performed By: #### E RUR #### [facility] [address] [place] [address] Dr. Reji Pickett Clarity (U) CLEAR Normal CLEAR [facility] Comment on above: Performed By: #### E RUR #### [facility] [address] [place] [address] Dr. Reji Pickett Color (U) LT. YELLOW Normal YELLOW [facility] Comment on above: Performed By: #### E RUR #### [facility] [address] [place] [address] Dr. Reji Pickett ERUAHD A micrscopic examina tion will be performed if indicated. Normal [facility] Comment on above: Performed By: #### E RUR #### [facility] [address] [place] [address] Dr. Reji Pickett Glucose Ql (U) Negative Normal NEGATIVE [facility] Comment on above: Performed By: #### E RUR #### [facility] [address] [place] [address] Dr. Reji Pickett Hemoglobin Ql (U) Negative Normal NEGATIVE [facility] Comment on above: Performed By: #### E RUR #### [facility] [address] [place] [address] Dr. Reji Pickett Ketones Ql (U) TRACE Abnormal NEGATIVE [facility] Comment on above: Performed By: #### E RUR #### [facility] [address] [place] [address] Dr. Reji Pickett LEUKOCYTES Negative Normal NEGATIVE [facility] Comment on above: Performed By: #### E RUR #### [facility] [address] [place] [address] Dr. Reji Pickett Nitrite Ql (U) Negative Normal NEGATIVE [facility] Comment on above: Performed By: #### E RUR #### [facility] [address] [place] [address] Dr. Reji Pickett pH (U) 6.0 [pH] Normal 5-9 [facility] Comment on above: Performed By: #### E RUR #### [facility] [address] [place] [address] Dr. Reji Pickett SPEC GRAVITY 1.020 Normal 1.005-<=1. 025 [facility] Comment on above: Performed By: #### E RUR #### [facility] [address] [place] [address] Dr. Reji Pickett UA PROTEIN Negative Normal NEGATIVE/ TRACE [facility] Comment on above: Performed By: #### E RUR #### [facility] [address] [place] [address] Dr. Reji Pickett UR MICRO IND NOT INDICATED Normal [facility] Comment on above: Performed By: #### E RUR #### [facility] [address] [place] [address] Dr. Reji Pickett Urobilinogen Qn (U) 0.2 {Yamile'U}/dL Normal 0.2 - 1. 0 [facility] Comment on above: Performed By: #### E RUR #### [facility] [address] [place] [address] Dr. Reji Pickett LIPASEon 07-27-2022 Lipase [Catalytic activity/Vol] 138.0 U/L Normal 73.0-393.0 [facility] Comment on above: Performed By: #### F T3, ALT, AST, BMP, TSH, LIPID #### [facility] [address] [place] [address] Dr. Reji Pickett PROF 14(COMP METB)on 023 Albumin [Mass/Vol] 3.8 g/dL Normal 3.4-5.0 [facility] Comment on above: Performed By: #### F T3, ALT, AST, BMP, TSH, LIPID #### [facility] [address] [place] [address] Dr. Reji Pickett Albumin/Globulin [Mass ratio] 1.4 {ratio} Normal [facility] Comment on above: Performed By: #### F T3, ALT, AST, BMP, TSH, LIPID #### [facility] [address] [place], [place] [id number] Dr. Reji Pickett ALP [Catalytic activity/Vol] 74 U/L Normal 46-116 [facility] Comment on above: Performed By: #### F T3, ALT, AST, BMP, TSH, LIPID #### [facility] [address] [place] [address] Dr. Reji Pickett ALT [Catalytic activity/Vol] 36 U/L Normal 14-59 [facility] Comment on above: Performed By: #### F T3, ALT, AST, BMP, TSH, LIPID #### [facility] [address] [place] [address] Dr. Reji Pickett Anion gap [Moles/Vol] 14.1 mmol/L Normal [facility] Comment on above: Performed By: #### F T3, ALT, AST, BMP, TSH, LIPID #### [facility] [address] [place] [address] Dr. Reji Pickett AST [Catalytic activity/Vol] 25 U/L Normal 15-37 [facility] Comment on above: Performed By: #### F T3, ALT, AST, BMP, TSH, LIPID #### [facility] [address] [place] [address] Dr. Reji Pickett Bilirubin [Mass/Vol] 0.8 mg/dL Normal 0.2-1.0 [facility] Comment on above: Performed By: #### F T3, ALT, AST, BMP, TSH, LIPID #### [facility] [address] [place] [address] Dr. Reji Pickett Calcium [Mass/Vol] 8.7 mg/dL Normal 8.5-10.1 [facility] Comment on above: Performed By: #### F T3, ALT, AST, BMP, TSH, LIPID #### [facility] [address] [place] [address] Dr. Reji Pickett Chloride [Moles/Vol] 111 mmol/L Critically high 98-107 [facility] Comment on above: Performed By: #### F T3, ALT, AST, BMP, TSH, LIPID #### [facility] [address] [place] [address] Dr. Reji Pickett CO2 [Moles/Vol] 22.7 mmol/L Normal 21.0-32.0 [facility] Comment on above: Performed By: #### F T3, ALT, AST, BMP, TSH, LIPID #### [facility] [address] [address] [address] Reji Pickett Creatinine [Mass/Vol] 0.79 mg/dL Normal 0.55-1.02 [facility] Comment on above: Performed By: #### F T3, ALT, AST, BMP, TSH, LIPID #### [facility] [address] [address] [address] Reji Pickett EGFR-AF CONGOLESE >60 Normal >=60 [facility] Comment on above: Performed By: #### F T3, ALT, AST, BMP, TSH, LIPID #### [facility] [address] [place] [address] Dr. Reji Pickett EGFR-NON AF CONGOLESE >60 Normal >=60 [facility] Comment on above: Performed By: #### F T3, ALT, AST, BMP, TSH, LIPID #### [facility] [address] [address] [address] Reji Pickett Globulin (S) [Mass/Vol] 2.7 g/dL Normal [facility] Comment on above: Performed By: #### F T3, ALT, AST, BMP, TSH, LIPID #### [facility] [address] [place] [address] Dr. Reji Pickett Glucose [Mass/Vol] 94 mg/dL Normal 74-106 [facility] Comment on above: Performed By: #### F T3, ALT, AST, BMP, TSH, LIPID #### [facility] [address] [address] [address] Reji Pickett Potassium [Moles/Vol] 4.8 mmol/L Normal 3.5-5.1 [facility] Comment on above: Performed By: #### F T3, ALT, AST, BMP, TSH, LIPID #### [facility] [address] [place] [address] Dr. Reji Pickett Protein [Mass/Vol] 6.5 g/dL Normal 6.4-8.2 [facility] Comment on above: Performed By: #### F T3, ALT, AST, BMP, TSH, LIPID #### [facility] [address] [address] [address] Reji Pickett Sodium [Moles/Vol] 143 mmol/L Normal 136-145 [facility] Comment on above: Performed By: #### F T3, ALT, AST, BMP, TSH, LIPID #### [facility] [address] [address] [address] Reji Pickett Urea nitrogen [Mass/Vol] 20.0 mg/dL Critically high 7.0-18.0 [facility] Comment on above: Performed By: #### F T3, ALT, AST, BMP, TSH, LIPID #### [facility] [address] [address] [address] Reji Pickett Urea nitrogen/Creatinine [Mass ratio] 25.3 mg/mg Normal [facility] Comment on above: Performed By: #### F T3, ALT, AST, BMP, TSH, LIPID #### [facility] [address] [address] [address] Reji Pickett TROPONIN, HIGH SENSITIVITYon 07-27-2022 HSTROP 4.5 pg/mL Normal 4.0-51.3 [facility] Comment on above: Result Comment: CUT- OFF POINTS HAVE BEEN ESTABLISHED BASED ON THE FOURTH UNIVERSAL DEFINITIONS OF MYOCARDIAL INFARCTION. THE UPPER REFERENCE LIMIT (URL) OF TROPONIN, DEFINED THE 99TH PERCENTILE OF cTnI DISTRIBUTION IN A REFERENCE POPULATION, HAS BEEN CONFIRMED THE DECISION THRESHOLD FOR GA DIAGNOSIS. Performed By: #### F T3, ALT, AST, BMP, TSH, LIPID #### [facility] [address] [place] [address] CHEST WO CONon [...] JIMENEZ OLIVA Date: 2021-10-31 11:54 Normal [facility] MAMM SCREEN 3D TACO CADon 10-31-2021 MG MAMM SCREEN 3D TACO CAD Patient: EDILMA LEONARDO Exam Date: 10/31/2021 : 1955 Gender:F Ordering : DR OLU JOHNSON . Admission #: [id number] Family : Order #: [id number] CLICK HERE TO VIEW EXAM RADIOLOGY REPORT [...] throat cancer at age 81. LOCATION: [facility] BREAST COMPOSITION: Heterogeneously dense,which may obscure small [...] MD on 10/31/2021 at 13:49 Normal [facility] CBC AUTO DIFFon 10-18-2021 BASO # 0.1 103/ul Normal 0.0-0.1 [facility] Comment on above: Performed By: #### F T3, ALT, AST, BMP, TSH, LIPID #### [facility] [address] [place] [address] Dr. Reji Pickett Basophils/100 WBC (Bld) 1.2 % Normal 0.2-2.0 [facility] Comment on above: Performed By: #### F T3, ALT, AST, BMP, TSH, LIPID #### [facility] [address] [place] [address] Dr. Reji Pickett EO # 0.1 103/ul Normal 0.0-0.7 [facility] Comment on above: Performed By: #### F T3, ALT, AST, BMP, TSH, LIPID #### [facility] [address] [place] [address] Dr. Reji Pickett Eosinophils/100 WBC (Bld) 2.3 % Normal 0.9-7.0 [facility] Comment on above: Performed By: #### F T3, ALT, AST, BMP, TSH, LIPID #### [facility] [address] [place] [address] Dr. Reji Pickett Erythrocyte distribution width (RBC) [Ratio] 14.3 % Normal 11.0-15.0 [facility] Comment on above: Performed By: #### F T3, ALT, AST, BMP, TSH, LIPID #### [facility] [address] [place] [address] Dr. Reji Pickett Hematocrit (Bld) [Volume fraction] 40.6 % Normal 36.0-48.0 [facility] Comment on above: Performed By: #### F T3, ALT, AST, BMP, TSH, LIPID #### [facility] [address] [place] [address] Dr. Reji Pickett Hemoglobin (Bld) [Mass/Vol] 12.6 g/dL Normal 12.0-16.0 [facility] Comment on above: Performed By: #### F T3, ALT, AST, BMP, TSH, LIPID #### [facility] [address] [place] [address] Dr. Reji Pickett IG # 0.01 10e3/ul Normal 0.00-0.03 [facility] Comment on above: Performed By: #### F T3, ALT, AST, BMP, TSH, LIPID #### [facility] [address] [place] [address] Dr. Reji Pickett IG % 0.2 % Normal 0.0-0.5 [facility] Comment on above: Performed By: #### F T3, ALT, AST, BMP, TSH, LIPID #### [facility] [address] [place] [address] Dr. Reji Pickett LYMPH # 2.2 103/ul Normal 1.2-3.8 [facility] Comment on above: Performed By: #### F T3, ALT, AST, BMP, TSH, LIPID #### [facility] [address] [place] [address] Dr. Reji Pickett Lymphocytes/100 WBC (Bld) 39.1 % Normal 20.5-60.0 [facility] Comment on above: Performed By: #### F T3, ALT, AST, BMP, TSH, LIPID #### [facility] [address] [place] [address] Dr. Reji Pickett MANUAL DIFF REQ NO Normal [facility] Comment on above: Performed By: #### F T3, ALT, AST, BMP, TSH, LIPID #### [facility] [address] [place] [address] Dr. Reji Pickett MCH (RBC) [Entitic mass] 31.0 pg Normal 26.7-34.0 [facility] Comment on above: Performed By: #### F T3, ALT, AST, BMP, TSH, LIPID #### [facility] [address] [place] [address] Dr. Reji Pickett MCHC (RBC) [Mass/Vol] 31.0 g/dL Normal 29.9-35.2 [facility] Comment on above: Performed By: #### F T3, ALT, AST, BMP, TSH, LIPID #### [facility] [address] [place] [address] Dr. Reji Pickett MCV (RBC) [Entitic vol] 99.8 fL Critically high 81.0-99.0 [facility] Comment on above: Performed By: #### F T3, ALT, AST, BMP, TSH, LIPID #### [facility] [address] [place] [address] Dr. Reji Pickett MONO # 0.6 103/ul Normal 0.3-0.8 [facility] Comment on above: Performed By: #### F T3, ALT, AST, BMP, TSH, LIPID #### [facility] [address] [place] [address] Dr. Reji Pickett Monocytes/100 WBC (Bld) 10.5 % Normal 1.7-12.0 [facility] Comment on above: Performed By: #### F T3, ALT, AST, BMP, TSH, LIPID #### [facility] [address] [place] [address] Dr. Reji Pickett NEUT # 2.7 103/ul Normal 1.4-6.5 [facility] Comment on above: Performed By: #### F T3, ALT, AST, BMP, TSH, LIPID #### [facility] [address] [place] [address] Dr. Reji Pickett Neutrophils/100 WBC (Bld) 46.7 % Normal 43.0-75.0 [facility] Comment on above: Performed By: #### F T3, ALT, AST, BMP, TSH, LIPID #### [facility] [address] [place] [address] Dr. Reji Pickett Platelet mean volume (Bld) [Entitic vol] 11.2 fL Normal 9.5-13.5 [facility] Comment on above: Performed By: #### F T3, ALT, AST, BMP, TSH, LIPID #### [facility] [address] [place] [address] Dr. Reji Pickett PLT 242 103/ul Normal 150-450 [facility] Comment on above: Performed By: #### F T3, ALT, AST, BMP, TSH, LIPID #### [facility] [address] [place] [address] Dr. Reji Pickett RBC 4.07 106/ul Critically low 4.20-5.40 [facility] Comment on above: Performed By: #### F T3, ALT, AST, BMP, TSH, LIPID #### [facility] [address] [place] [address] Dr. Reji Pickett WBC 5.7 103/ul Normal 4.0-11.0 [facility] Comment on above: Performed By: #### F T3, ALT, AST, BMP, TSH, LIPID #### [facility] [address] [place] [address] Dr. Reji Pickett FREE T3on 10-18-2021 FREE T3 1.91 pg/mlL Critically low 2.18-3.98 [facility] Comment on above: Performed By: #### F T3, ALT, AST, BMP, TSH, LIPID #### [facility] [address] [place] [address] Dr. Reji Pickett FREE T4on 10-18-2021 Free T4 [Mass/Vol] 1.06 ng/dL Normal 0.76-1.46 [facility] Comment on above: Performed By: #### F T4 #### [facility] [address] [place] [address] Dr. Reji Pickett LIPID PROFILEon 10-18-2021 CHOL-HDL RATIO NORM SEE BELOW Normal [facility] Comment on above: Result Comment: 3.3 - 4.4 LOW RISK 4.4 - 7.1 AVERAGE RISK 7.1 - 11.0 MODERATE RISK >11.0 HIGH RISK Performed By: #### F T3, ALT, AST, BMP, TSH, LIPID #### [facility] [address] [place] [address] Dr. Reji Pickett Cholesterol [Mass/Vol] 181 mg/dL Normal <=200 [facility] Comment on above: Performed By: #### F T3, ALT, AST, BMP, TSH, LIPID #### [facility] [address] [address] [address] Reji Pickett Cholesterol in HDL [Mass/Vol] 69 mg/dL Critically high 40-60 [facility] Comment on above: Performed By: #### F T3, ALT, AST, BMP, TSH, LIPID #### [facility] [address] [address] [address] Reji Pickett Cholesterol in LDL [Mass/Vol] 97.4 mg/dL Normal [facility] Comment on above: Performed By: #### F T3, ALT, AST, BMP, TSH, LIPID #### [facility] [address] [address] [address] Reji Pickett Cholesterol.total/Chol esterol in HDL [Mass ratio] 2.6 {ratio} Normal [facility] Comment on above: Performed By: #### F T3, ALT, AST, BMP, TSH, LIPID #### [facility] [address] [address] [address] Reji Pickett HDL NORMAL > or = 60 mg/dl - LO W CARDIOVASCULAR RISK <40 mg/dl - HIGH CARDIOVASCULAR RISK Normal [facility] Comment on above: Performed By: #### F T3, ALT, AST, BMP, TSH, LIPID #### [facility] [address] [address] [address] Reji Pickett LDL CALC NORMAL SEE BELOW Normal [facility] Comment on above: Result Comment: <100 mg/dl OPTIMAL 100 - 129 mg/dl NEAR OR ABOVE OPTIMAL 130 - 159 mg/dl BORDERLINE HIGH 160 - 189 mg/dl HIGH >190 mg/dl VERY HIGH Performed By: #### F T3, ALT, AST, BMP, TSH, LIPID #### [facility] [address] [address] [address] Reji Pickett Triglyceride [Mass/Vol] 73 mg/dL Normal <=150 [facility] Comment on above: Performed By: #### F T3, ALT, AST, BMP, TSH, LIPID #### [facility] [address] [address] [address] Reji Pickett VLDL CALC 14.6 mg/dL Normal [facility] Comment on above: Performed By: #### F T3, ALT, AST, BMP, TSH, LIPID #### [facility] [address] [place] [address] Dr. Reji Pickett PROF CHEM 8 (BAS METB)on Anion gap [Moles/Vol] 14.1 mmol/L Normal Th [facility] Comment on above: Performed By: #### F T3, ALT, AST, BMP, TSH, LIPID #### [facility] [address] [place] [address] Dr. Reji Pickett Calcium [Mass/Vol] 9.1 mg/dL Normal 8.5-10.1 [facility] Comment on above: Performed By: #### F T3, ALT, AST, BMP, TSH, LIPID #### [facility] [address] [place] [address] Dr. Reji Pickett Chloride [Moles/Vol] 105 mmol/L Normal 98-107 [facility] Comment on above: Performed By: #### F T3, ALT, AST, BMP, TSH, LIPID #### [facility] [address] [place] [address] Dr. Reji Pickett CO2 [Moles/Vol] 27.0 mmol/L Normal 21.0-32.0 [facility] Comment on above: Performed By: #### F T3, ALT, AST, BMP, TSH, LIPID #### [facility] [address] [place] [address] Dr. Reji Pickett Creatinine [Mass/Vol] 0.78 mg/dL Normal 0.55-1.02 [facility] Comment on above: Performed By: #### F T3, ALT, AST, BMP, TSH, LIPID #### [facility] [address] [place] [address] Dr. Reji Pickett EGFR-AF CONGOLESE Normal >=60 [facility] Comment on above: Performed By: #### F T3, ALT, AST, BMP, TSH, LIPID #### [facility] [address] [place] [address] Dr. Reji Pickett EGFR-NON AF CONGOLESE Normal >=60 [facility] Comment on above: Performed By: #### F T3, ALT, AST, BMP, TSH, LIPID #### [facility] [address] [place] [address] Dr. Reji Pickett Glucose [Mass/Vol] 74 mg/dL Normal 74-106 [facility] Comment on above: Performed By: #### F T3, ALT, AST, BMP, TSH, LIPID #### [facility] [address] [place] [address] Dr. Reji Pickett Potassium [Moles/Vol] 4.1 mmol/L Normal 3.5-5.1 [facility] Comment on above: Performed By: #### F T3, ALT, AST, BMP, TSH, LIPID #### [facility] [address] [place] [address] Dr. Reji Pickett Sodium [Moles/Vol] 142 mmol/L Normal 136-145 [facility] Comment on above: Performed By: #### F T3, ALT, AST, BMP, TSH, LIPID #### [facility] [address] [place] [address] Dr. Reji Pickett Urea nitrogen [Mass/Vol] 15.0 mg/dL Normal 7.0-18.0 [facility] Comment on above: Performed By: #### F T3, ALT, AST, BMP, TSH, LIPID #### [facility] [address] [place] [address] Dr. Reji Pickett Urea nitrogen/Creatinine [Mass ratio] 19.2 mg/mg Normal [facility] Comment on above: Performed By: #### F T3, ALT, AST, BMP, TSH, LIPID #### [facility] [address] [place] [address] Dr. Reji Leyva 10-18-2021 AST [Catalytic activity/Vol] 33 U/L Normal 15-37 [facility] Comment on above: Performed By: #### F T3, ALT, AST, BMP, TSH, LIPID #### [facility] [address] [place] [address] Dr. Reji Lopez 10-18-2021 ALT [Catalytic activity/Vol] 59 U/L Normal 14-59 [facility] Comment on above: Performed By: #### F T3, ALT, AST, BMP, TSH, LIPID #### [facility] [address], [place] [address] Dr. Reji Pickett TSHon 10-18-2021 TSH 1.079 uIU/mL Normal 0.358-3.74 0 [facility] Comment on above: Performed By: #### F T3, ALT, AST, BMP, TSH, LIPID #### [facility] [address] [id number] [address] Reji Pickett TSH RANGE SEE BELOW Normal [facility] Comment on above: Result Comment: <0.3 4 UIU/ml HYPERTHYROID 0.34-5.60 UIU/ml EUTHYROID >5.60 UIU/ml HYPOTHYROID Performed By: #### F T3, ALT, AST, BMP, TSH, LIPID #### [facility] [address], [place] [address] Dr. Reji Pickett Vital Signs Date Time Vital Sign Value Performing Clinician Joycei lity 04-25-2023 21:50-0500 Body temperature 97.5 [degF] [facility] [employer] Work Phone: [facility] 04-25-2023 21:50-0500 Diastolic blood pressure 71 mm[Hg] [employer] Work Phone: [facility] 04-25-2023 21:50-0500 Heart rate 59 /min [employer] Work Phone: [facility] 04-25-2023 21:50-0500 Respiratory rate 20 /min [facility] [employer] Work Phone: [facility] 04-25-2023 21:50-0500 SaO2% (BldA) [Mass fraction] 95 % [employer] Work Phone: [facility] 04-25-2023 21:50-0500 Systolic blood pressure 134 mm[Hg] [facility] 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[employer]ADC[employer]ita Falk Work Phone: [facility] Encounters Encounter Date Encounter Type Care Provider Facility Start: 11-13-2023 End: 11-13-2023 ambulatory SHAIKH ADRIANA Not Available Start: 10-16-2023 End: 10-16-2023 ambulatory LAURE AICHHOLZ [...] Department Unsolicited Start: 06-24-2023 Bamboo flowsheet Yemi Brink [employer] DEVEL[employer] [facility] Start: 06-24-2023 Bamboo flowsheet Yemi Brink [employer] DEVELOPER [facility] Start: 06-24-2023 End: 06-24-2023 ambulatory Yemi Stern [employer] DEVEL[employer] [facility] Comment on above: Radiculopathy affect ing upper extremity (Primary Dx); Lateral epicondylitis of left elbow Start: 06-20-2023 End: 06-20-2023 ambulatory YEMI STERN Not Available Start: 06-18-2023 End: 06-18-2023 ambulatory YEMI STERN Not Available Start: 06-17-2023 End: 06-17-2023 ambulatory LAURE AICHHOLZ Not Available Start: 06-17-2023 Patient encounter procedure Yemi Stern [employer] DEVELOPER [facility] Start: 06-13-2023 End: 06-13-2023 ambulatory Blanca Pollard [employer] DEVEL[employer] [facility] Comment on above: Radiculopathy affect ing upper extremity (Primary Dx); Lateral epicondylitis of left elbow Start: 06-11-2023 End: 06-11-2023 ambulatory BHAKTI PRASAD Not Available Start: 05-20-2023 End: 05-20-2023 ambulatory LAURE AICHHOLZ Not Available Start: 05-01-2023 End: 05-01-2023 ambulatory LAURE AICHHOLZ Not Available Start: 04-25-2023 End: 04-26-2023 Emergency department patient visit Candelaria Falk Facility:[facility] Start: 04-25-2023 End: 04-25-2023 Emergency department patient visit CECILY Falk Work Phone: [facility] Work Phone: Start: 07-27-2022 End: 07-27-[address] OLU JOHNSON Facility:[facility] Start: 10-31-2021 End: 11-01-[address] OLU JOHNSON Facility:[facility] Start: 10-18-2021 End: 10-19-[address] OLU JOHNSON Facility:[facility] Procedures Date Procedure Procedure Detail Performing Clinician Start: 06-25-2023 ALL CBC WITH AUTO DIFF Generic External Data Provider Start: 05-22-2023 Mammography Blanca chirinos [employer] DEVELOPER Start: 04-25-2023 CT of head without contrast CECILY Falk Work Phone: Start: 04-25-2023 Plain chest X-ray CECILY Falk Work Phone: Start: 04-25-2023 SARS-CoV-2, Influenz a & RSV (PCR) CECILY Falk Work Phone: Start: 12-07-2019 Colonoscopy Blanca chirinos PTA Plan of Treatment Date Care Activity Detail Author Start: 12-06-2029 Screening for malignant neoplasm of colon [facility] Start: 06-17-2024 Medicare Annual Wellness (AWV) Medicare Annual Wellness (AWV) [facility] Start: 05-22-2024 Screening for malignant neoplasm of breast Mammogram [facility] Start: 07-10-2023 End: 07-10-2023 Patient encounter procedure 07/10/2023 9:00 AM EST Office Visit [facility] [address] [place] [phone] Laure Corona NP [address] [place] [phone] [facility] Start: 06-26-2023 End: 06-26-2023 ambulatory [facility] Comment on above: Arrived Start: 06-24-2023 End: 06-24-2023 ambulatory [facility] Comment on above: Arrived Start: 06-20-2023 End: 06-20-2023 ambulatory 06/20/2023 11:30 AM EST Treatment [facility] [address] [place] [address] Yemi Stern PTA [facility] Start: 06-18-2023 End: 06-18-2023 ambulatory 06/18/2023 11:30 AM EST Treatment [facility] [address] [place] [address] Yemi Stern PTA [facility] Start: 06-17-2023 End: 06-17-2023 Patient encounter procedure 06/17/2023 4:30 PM EST Office Visit [facility] [address] [place] [phone] Laure Corona, JORDEN [address] [place] [address] [facility] Start: 10-26-2022 Screening for malignant neoplasm of colon FIT-DNA [facility] Start: 1955 Medicare Annual Wellness (AWV) Medicare Annual Wellness (AWV) [facility] Start: 1955 Screening for malignant neoplasm of colon [facility] Patient Education Radiculopathy [facility] Work Phone: Patient referral [facility] Work Phone: Payers Date Payer Category Payer Private Health Insurance [id number] 2023 Self-pay 2019 Medicare MEDICARE MEDICAR E PART B [id number] 2019-[place] [address] [place] [address] Medicare [id number] 1959 Medicare [id number] 1959 Private Health Insurance CLI [id number] 1954 Unknown [id number] 2.16.840.1.798089.3.579.2 .593 1954 Unknown [id number] 2.16.840.1.333481.3.579.2 .593 1954 Unknown [id number] 2.16.840.1.794979.3.579.2 .593 1954 Unknown [id number] 2.16.840.1.486247.3.579.2 .1259 1954 Unknown [id number] 2.16.840.1.285995.3.579.2 .1259 1954 Unknown [id number] 2.16.840.1.635825.3.579.2 .1259 1954 Unknown [id number] 2.16.840.1.287507.3.579.2 .1258 1954 Unknown [id number] 2.16.840.1.844124.3.579.2 .1258 1954 Unknown [id number] 2.16.840.1.102566.3.579.2 .1258 1954 Unknown [id number] 2.16.840.1.209036.3.579.2 .1258 1954 Unknown [id number] 2.16.840.1.209806.3.579.2 .1258 1954 Unknown [id number] 2.16.840.1.064624.3.579.2 .1258 1954 Unknown [id number] 2.16.840.1.498557.3.579.2 .1258 1954 Unknown [id number] 2.16.840.1.524143.3.579.2 .1258 1954 Unknown [id number] 2.16.840.1.715207.3.579.2 .1258 1954 Unknown [id number] 2.16.840.1.458705.3.579.2 .1258 1954 Unknown [id number] 2.16.840.1.028438.3.579.2 .1258 1954 Unknown [id number] 2.16.840.1.239226.3.579.2 .1258 1954 Unknown [id number] 2.16.840.1.578173.3.579.2 .1259 Unknown [employer] [id number] Unknown [id number] 2.16.840.1.008696.3.579.2 .531 Social History Date Type Detail Facility Start: 04-25-2023 End: 05-20-2023 Tobacco smoking status ARIS Ex-smoker (finding) [facility] Start: 1955 Sex Assigned At Female [facility] End: 05-13-2015 History of tobacco use [...] to any clubs or organizations such as yazidism groups, unions, [employer] or athletic groups, or school groups? Yes [...] History of Present illness Narrative 06-13-2023 Blanca Pollard, [employer] DEVELOPER - 06/13/2023 11:30 AM EST Note Date [...] Physician Signature: Date: documented in this encounter [facility] Evaluation note Note Date & Type Note Facility Evaluation note No assessment information availa [facility] Work Phone: Evaluation note Note Date & Type Note Facility Evaluation note Diagnosis Radiculopathy affecting upper extremity- Primary Lateral epicondylitis of left elbow documented in this encounter [facility] Evaluation note Note Date & Type Note Facility Evaluation note Diagnosis Radiculopathy affecting upper extremity- Primary Lateral epicondylitis of left elbow documented in this encounter [facility] Evaluation note Note Date & Type Note Facility Evaluation note Diagnosis Radiculopathy affecting upper extremity- Primary Lateral epicondylitis of left elbow documented in this encounter [facility] Discharge instructions Note Date & Type [...] [facility] Work Phone: Reason for visit Narrative Consultation (Routine) - Authorized Note Date & Type Note Facility Reason for visit Narrative Specialty Diagnoses / Procedures Referred By Tina vora Referred To Contact Physical Therapy Diagnoses Radiculopathy affecting upper extremity Lateral epicondylitis of left elbow Procedures OR OFFICE/OUTPATIENT NEW HIGH MDM 60 MINUTES Laure Corona NP [address] [place] [address] Bhakti Prasad, PT [address] [employer] [address] [address] Referral ID Status Reason Start Date Expiration Date Visits Requested Visits Authorized [id number] Authorized Consult and Treat 05/20/2023 11/16/2023 10 [address] [facility] Reason for visit Narrative Consultation (Routine) - Pending Review Note Date & Type Note Facility Reason for visit Narrative Specialty Diagnoses / Procedures Referred By Tina vora Referred To Contact Physical Therapy Diagnoses Radiculopathy affecting upper extremity Lateral epicondylitis of left elbow Procedures OR OFFICE/OUTPATIENT NEW HIGH MDM 60 MINUTES Laure Corona NP [address] [place] [address] Bhakti Prasad, PT [address] [employer] [facility] [address] [place] [address] Referral ID Status Reason Start Date Expiration Date Visits Requested Visits Authorized [id number] Pending Review Consult and Treat 05/20/2023 11/16/2023 10 10 [facility] Summary Purpose Family History No Family History [...] DATE CREATED AUTHOR AUTHOR'S ORGANIZ ATION 05/03/2023 [facility] DATE CREATED AUTHOR AUTHOR'S ORGANIZ ATION 11/14/2023 [facility] dical Specialists EPIC Care Teams (unrecognized sec tion and content) Team Status: Active Member Role Status Dates Olu Johnson MD Primary Care Provider Active Team Status: Inactive Member Role Status Dates Candelaria Falk , CECILY Emergency Provider Active Olu Johnson MD Primary Care Provider Active [employer] Relationship Specialty Start Date End Date Olu Johnson MD [address] [place] [phone] PCP - General Family Medicine 05/01/23 Laure Corona NP [address] [place] [phone] Nurse Practitioner Family Medicine 05/01/23 [employer] Relationship Specialty Start Date End Date Olu Johnson MD [address] [place] [phone] PCP - General Family Medicine 05/01/23 Laure Corona NP [address] [place] [phone] Nurse Practitioner Family Medicine 05/01/23 [employer] Operator Relationship Specialty Start Date End Date Olu Johnson MD [address] [place] [phone] PCP - General Family Medicine 05/01/23 Laure Corona NP [address] [place] [phone] Nurse Practitioner [facility] 05/01/23 [employer] Operator Relationship Specialty Start Date End Date Olu Johnson MD [address] [place] [phone] PCP - General [facility] 05/01/23 Laure Corona NP [address] [place] [phone] Nurse Practitioner [facility] 05/01/23 [employer] Operator Relationship Specialty Start Date End Date Olu Johnson MD [address] [place] [phone] PCP - General [facility] 05/01/23 Laure Corona NP [address] [place] [phone] Nurse Practitioner [facility] 05/01/23 Goals (unrecognized section and [...] BE BASED ON THE PRIMARY CLINICAL RECORDS. [facility] [employer] [facility]. provides no warranty or guarantee of the accuracy or completeness of information in this document.
[2023-11-15 09:13] LABS: Anion Gap 10.1; Chloride 102 mmol/L (98-107); Estimated GFR (African America >60 (>=60); Estimated GFR (Non-African Ame 58 (>=60); Glucose 102 mg/dL (74-106); Potassium 4.1 mmol/L (3.5-5.1); Sodium 139 mmol/L (136-145)
== END 2023-11-15 08:17 | disposition home or self-care (01) ==
LOC: LAB 08:17
PROVIDERS: PCP Nurse Practitioner; Visit Provider Internal Medicine
DX: I10 Essential (primary) hypertension (principal)
CPT/HCPCS: 36415; 80048

== ENCOUNTER 2024-05-27 08:38 | Outpatient (OUT) | payer MEDICARE, SELFPAY ==
--- NOTE | 2024-05-27 08:56 | MM_ITS ---
Patient Name: MARK SAL MR#: [id number] : 1955 Exam Date: 05/27/2024 Ordering Doctor: RAFIA Corona CNP RADIOLOGY REPORT PROCEDURE: MM TOMOSYNTHESIS SCREENING BI COMPARISON: MG MAMM SCREEN 3D TACO CAD, 10/31/2021. MM TOMOSYNTHESIS SCREENING BI, 05/22/2023. INDICATIONS: Screening Calculator Name NCI Breast Cancer Risk Assessment Tool 5 Year Breast Cancer Risk 1.40% Lifetime Breast Cancer Risk 4.30% Personal Breast Cancer No Personal Ovarian Cancer No Treatments None Family Cancers Grandmother-maternal with throat cancer at age ~60; Mother with lung cancer at age 82; Father with throat cancer at age 82. LOCATION: [facility] BREAST COMPOSITION: The breasts are heterogeneously dense,which may obscure small masses. FINDINGS: DIAGNOSTIC CATEGORY 1--NEGATIVE. NO CHANGE FROM COMPARISON ASSESSMENT. Scattered benign-appearing calcifications are present. Scattered benign-appearing lymph nodes are present. RIGHT BREAST: No significant suspicious finding. LEFT BREAST: No significant suspicious finding. RECOMMENDATIONS: ROUTINE MAMMOGRAM AND CLINICAL EVALUATION IN 12 MONTHS. PLEASE NOTE: A NORMAL MAMMOGRAM DOES NOT EXCLUDE THE POSSIBILITY OF BREAST CANCER. A CLINICALLY SUSPICIOUS PALPABLE LUMP SHOULD BE BIOPSIED. Dictated by: Alessandro Unger MD on 05/27/2024 at 09:55 Approved by: Alessandro Unger MD on 05/27/2024 at 10:02
[2024-05-27 09:06] LABS: Basophils Absolute Auto 0.1 10^3/uL (0.0-0.1); Basophils Percent Auto 1.1 % (0.2-2.0); Eosinophils Absolute Auto 0.1 10^3/uL (0.0-0.7); Hematocrit 38.6 % (36.0-48.0); Hemoglobin 12.7 g/dL (12.0-16.0); Immature Granulocytes Abs Auto 0.02 10^3/uL (0.00-0.03); Immature Granulocytes Pct Auto 0.3 % (0.0-0.5); Lymphocytes Absolute Auto 2.1 10^3/uL (1.2-3.8); Lymphocytes Percent Auto 33.2 % (20.5-60.0); Mean Corpuscular HGB Conc 32.9 g/dL (29.9-35.2); Mean Corpuscular Hemoglobin 31.6 pg (26.7-34.0); Mean Platelet Volume 10.3 fL (9.5-13.5); Monocytes Absolute Auto 0.6 10^3/uL (0.3-0.8); Monocytes Percent Auto 9.5 % (1.7-12.0); Neutrophils Absolute Auto 3.5 10^3/uL (1.4-6.5); Neutrophils Percent Auto 53.9 % (43.0-75.0); Platelet Count 233 10^3/uL (150-450); Red Blood Count 4.02 10^6/uL (4.20-5.40); Red Cell Distribution Width 12.5 % (11.0-15.0); White Blood Count 6.4 10^3/uL (4.0-11.0)
[2024-05-27 09:37] LABS: Free T4 0.95 ng/dL (0.76-1.46)
[2024-05-27 09:41] LABS: Alanine Aminotransferase 32 U/L (14-59); Albumin Globulin Ratio 1.2; Alkaline Phosphatase 71 U/L (46-116); Anion Gap 11.6; Aspartate Amino Transferase 26 U/L (15-37); BUN Creatinine Ratio 24.1; Bilirubin Total 0.6 mg/dL (0.2-1.0); Calcium 9.4 mg/dL (8.5-10.1); Carbon Dioxide 28.2 mmol/L (21.0-32.0); Chloride 103 mmol/L (98-107); Chol HDL Ratio 2.9; Cholesterol 240 mg/dL (<=200); Estimated GFR (African America 48 (>=60 mL/min/1.73m^2); Estimated GFR (Non-African Ame 40 (>=60 mL/min/1.73m^2); Globulin 3.4 g/dL; Glucose 101 mg/dL (74-106); HDL Cholesterol 83 mg/dL (40-60); Potassium 3.8 mmol/L (3.5-5.1); Sodium 139 mmol/L (136-145); Thyroid Stimulating Hormone 1.063 uIU/mL (0.358-3.740); Total Protein 7.4 g/dL (6.4-8.2); Triglycerides 85 mg/dL (<=150)
== END 2024-05-27 08:39 | disposition home or self-care (01) ==
LOC: MAMMO 08:38
PROVIDERS: PCP Nurse Practitioner; Visit Provider Nurse Practitioner
DX: Z12.31 Encounter for screening mammogram for malignant neoplasm of breast (principal); I10 Essential (primary) hypertension; E78.2 Mixed hyperlipidemia; E03.9 Hypothyroidism, unspecified; Z80.1 Family history of malignant neoplasm of trachea, bronchus and lung; Z80.8 Family history of malignant neoplasm of other organs or systems
CPT/HCPCS: 36415; 77063; 77067; 80053; 80061; 82043; 82570; 84439; 84443; 85025

== ENCOUNTER 2024-05-28 10:09 | Outpatient (REF) | payer MEDICARE, SELFPAY ==
--- OUTSIDE RECORDS SUMMARY | 2024-05-28 10:22 | XMS_ITS | CCD ---
Author Organization [facility] CliniSynh Care Team Providers Care Braid Pattern Setter Name Role Phone ELIZABETH, DR OLU Martinez Primary Care Unavailable PAY ., DR HUTCHINS Admitting Unavailable PAY ., DR HUTCHINS Attending Unavailable PAY ., DR HUTCHINS Consulting Unavailable NADERER, DR OLU Martinez Primary Care Unavailable NADERER, DR OLU Martinez Admitting Unavailable NADERER, DR LOU Martinez Attending Unavailable NADERER, DR OLU Martinez Consulting Unavailable NADERER, DR OLU Martinez Primary Care Unavailable NADERER, DR OLU Martinez Admitting Unavailable NADERER, DR OLU Martinez Referring Unavailable GILA BEND, DR JIMENEZ Hernandez Consulting Unavailable NADERER, DR OLU Martinez Attending Unavailable NADERER, DR OLU Martinez Consulting Unavailable CECILY Falk Emergency Provider MD Olu Johnson Primary Care Provider Candelaria Falk Attending Unavailable Candelaria Falk Admitting Unavailable Olu Johnson Primary Care Unavailable Aichholmagan COMMUNICATIONS SPECIALIST, Laure Unavailable Olu Johnson MD Primary Care Provider Chloe COMMUNICATIONS SPECIALIST, Laure Unavailable Olu Johnson MD Primary Care Provider Aicpauline COMMUNICATIONS SPECIALIST, Laure Unavailable AICHHOLZ, LAURE Attending Unavailable BHAKTI PRASAD Attending Unavailable AICHHOLZ, LAURE Referring Unavailable BLANCA POLLARD Attending Unavailable AICHHOLZ, LAURE Referring Unavailable AICHHOLZ, LAURE Attending Unavailable YEMI STERN Attending Unavailable AICHHOLZ, LAURE Referring Unavailable YEMI STERN Attending Unavailable AICHHOLZ, LAURE Referring Unavailable YEMI STERN Attending Unavailable AICHHOLZ, LAURE Referring Unavailable BHAKTI PRASAD Attending Unavailable AICPAULINE, LAURE Referring Unavailable AICPremHOLMagan, LAURE Attending Unavailable GARY CEBLALOS Attending Unavailable GARY CEBALLOS Referring Unavailable AICPremHOLMagan, LAURE Attending Unavailable AICHHOLZ, LAURE Attending Unavailable AICHHOLZ, LAURE Attending Unavailable AICHHOLZ, LAURE Attending Unavailable SHAIKH WRIGHT Attending Unavailable AICHHOLZ, LAURE Attending Unavailable AICHHOLZ, LAURE Attending Unavailable AICHHOLZ, LAURE Attending Unavailable Allergies Allergy Classification Reported Allergen(s) Allergy Type Date of Onset Reaction(s) Facility (1 source) Cephalexin Drug Allergy 07-28-19 23 [facility] (1 source) Ciprofloxacin Drug Allergy 07-28-19 23 [facility] (1 source) Penicillin Drug Allergy 07-28-19 23 [facility] (15 sources) Cephalexin; Translations: [cephalexin] Drug Allergy 11-11-19 20 Dizziness, Rash [facility] (2 sources) Ciprofloxacin; Translations: [ciprofloxacin] Drug Allergy 04-25-20 23 Gastrointestinal Upset [facility] (15 sources) Penicillins; Translations: [Penicillins] Allergy to substance 04-25-20 23 Rash [facility] (13 sources) Naproxen Drug Allergy 05-20-19 24 Swelling, Rash [facility] (7 sources) Prednisone Propensity to adverse reactions 07-10-19 24 [facility] Medications Current Medications Medication Drug Class(es) Dates Sig (Normalized) Sig (Original) amLODIPine 5 mg oral tablet (5 sources) Dihydropyridine Calcium Channel [place] Start: 06-18-19 24 End: 07-18-19 24 take 1 tablet by mouth in the morning amLODIPine (Norvasc) 5 MG tablet Indications: Primary hypertension (CMS/HCC) Take 1 tablet (5 mg) by mouth in the morning. 30 tablet 1 06/18/2023 07/18/2023 Active hydroCHLOROthiazide 25 mg oral tablet (9 sources) Thiazide Diuretic Start: 12-09-19 24 End: 12-09-19 25 take 1 tablet by mouth once daily hydroCHLOROthiazide (HYDRODiuril) 25 MG tablet Indications: Primary hypertension (CMS/HCC) Take 1 tablet (25 mg) by mouth Daily 90 tablet 1 04/21/2024 07/20/2024 Active levothyroxine sodium 0.025 mg oral tablet (16 sources) l-Thyroxine Start: 11-06-19 End: 07-26-19 take 1 tablet by mouth before mealtime levothyroxine (Synthroid, Levoxyl) 25 MCG tablet Indications: Hypothyroidism, unspecified (CMS/HCC) Take 1 tablet (25 mcg) by mouth in the morning. Take before meals. 90 tablet 1 04/26/2024 07/25/2024 Active Start: 04-25-2023 Levothyroxine Active MCG TABLET April 25, 2023 12:00am Start: 02-08-2023 take 1 tablet by maria a th in the morning levothyroxine (Synthroid, Levoxyl) 25 MCG tablet Take 25 mcg by mouth in the morning. 0 02/08/2023 Active lisinopril 20 mg oral tablet (16 sources) Angiotensin Converting Enzyme Inhibitor Start: 04-21-2024 End: 07-20-2024 take 1 tablet by mouth once daily lisinopril 20 MG tablet Indications: Primary hypertension (CMS/HCC) Take 1 tablet (20 mg) by mouth Daily 90 tablet 1 04/21/2024 07/20/2024 Active Start: 12-18-2023 End: 04-21-2024 take 1 tablet by mouth once daily lisinopril 40 MG tablet Indications: Primary hypertension (CMS/HCC) Take 1 tablet (40 mg) by mouth Daily 90 tablet 12/18/2023 04/21/2024 Discontinued (Side effects) Start: 06-18-2023 End: 09-16-2023 take 1 tablet [...] PO Daily 6 April 25, 2023 12:00am sertraline 50 mg oral tablet (9 sources) Serotonin Reuptake Inhibitor Start: 12-18-2023 End: 07-25-2024 take 1 tablet by mouth once daily sertraline (Zoloft) 50 MG tablet Indications: TIMOTEO (generalized anxiety disorder) (CMS/HCC) Take 1 tablet (50 mg) by mouth Daily 90 tablet 1 04/26/2024 07/25/2024 Active simvastatin 40 mg oral tablet (16 sources) HMG-CoA Reductase Inhibitor Start: 11-06-2023 End: 07-25-2024 take 1 tablet by mouth at bedtime simvastatin (Zocor) 40 MG tablet Indications: Hyperlipidemia, unspecified (CMS/HCC) Take 1 tablet (40 mg) by mouth at bedtime 90 tablet 1 04/26/2024 07/25/2024 Active Start: 04-25-2023 Simvastatin Ac tive MG TABLET April 25, 2023 12:00am Start: 02-08-2023 take 1 tablet by maria a th at bedtime simvastatin (Zocor) 40 MG tablet Take 40 mg by mouth at bedtime 0 02/08/2023 Active Problems Active Problems Problem Classification Problem Date Documented Da te Episodic/Chronic Anxiety disorders (11 sources) Generalized anxiety disorder; Translations: [Generalized anxiety disorder] Onset: 10-16-2023 10-16-2023 Chronic Disorders of lipid metabolism (19 sources) Pure hypercholesterolem ia, unspecified; Translations: [Hyperlipidemia, unspecified] Onset: 03-19-2019 05-01-2023 Chronic Essential hypertension (20 sources) Essential (primary) hypertension; Translations: [Hypertensive disorder] Onset: 03-19-2019 Resolved: 07-10-2023 Chronic Headache; including migraine (1 source) Headache; including migraine; Translations: [HEADACHE UNSPECIFIED] Onset: 07-31-2022 Immunizations and screening for infectious disease (5 sources) Needs influenza immunization; Translations: [Encounter for immunization] Onset: 04-21-2024 04-21-2024 Episodic Nausea and vomiting (4 sources) Nausea with vomiting, unspecified; Translations: [NAUSEA WITH VOMITING UNSPECIFIED] Onset: 07-27-2022 Episodic Nonspecific chest pain (2 sources) Chest pain; Translations: [Chest pain, unspecified] Onset: 04-25-2023 04-25-2023 Episodic Other aftercare (1 source) Other oysterman (current) drug therapy; Translations: [OTH SEAT COVERER CURRENT DRUG THERAPY] Onset: 07-31-2022 Episodic Other gastrointestinal disorders (1 source) Diarrhea, unspecified; Translations: [DIARRHEA UNSPECIFIED] Onset: 07-31-2022 Episodic Screening and history of mental health and substance abuse codes (1 source) Personal history of nicotine dependence; Translations: [PERSONAL HISTORY OF NICOTINE DEPEND] Onset: 07-31-2022 Episodic Thyroid disorders (16 sources) Hypothyroidism, unspecified; Translations: [Hypothyroidism] Onset: 03-19-2019 05-01-2023 Chronic Past or Other Problems Problem Classification Problem Date Documented Date Episodic/Chronic Mood disorders (12 sources) Mood disorders Onset: 06-17-2023 06-17-2023 Other connective tissue disease (16 sources) Lateral epicondylitis of left humerus; Translations: [Lateral epicondylitis, left elbow] Onset: 05-01-2023 06-13-2023 Episodic Other lower respiratory disease (4 sources) Solitary pulmonary nodule; Translations: [SOLITARY PULMONARY NODULE] Onset: 10-31-2021 Episodic Other non-traumatic joint disorders (7 sources) Pain in left shoulder; Translations: [Pain in joint, shoulder region] Onset: 07-10-2023 07-10-2023 Episodic Other nutritional; endocrine; and metabolic disorders (14 sources) Overweight in adulthood with body mass index of 25 or more but less than 30; Translations: [Body mass index (BMI) 25.0-25.9, adult] Onset: 06-17-2023 06-17-2023 Episodic Other screening for suspected conditions (not mental disorders or infectious disease) (16 sources) Encounter for screening mammogram for malignant neoplasm of breast; Translations: [Patient encounter status] Onset: 11-02-2021 05-20-2023 Episodic Other upper respiratory infections (15 sources) Acute upper respiratory infection; Translations: [Acute upper respiratory infection, unspecified] Onset: 07-10-2023 Resolved: 04-21-2024 12-18-2023 Episodic Residual codes; unclassified (1 source) Family history of malignant neoplasm of trachea, bronchus and lung; Translations: [FAM HX MALLORRAINE NEOPLSM TRACH BRON LNG] Onset: 11-02-2021 Episodic Residual codes; unclassified (1 source) Family history of malignant neoplasm of other organs or systems; Translations: [FAM HX MALIG NEOPLASM OTH ORGN/SYS] Onset: 11-02-2021 Episodic Spondylosis; intervertebral disc disorders; other back problems (17 sources) Nerve root disorder; Translations: [Radiculopathy, site unspecified] Onset: 05-01-2023 04-25-2023 Episodic Results Test Name Value Interpretation Reference Range Facility ALL CBC WITH AUTO DIFFon BASOPHILS ABSOLUTE AUTO 0.1 [facility] Basophils/100 WBC (Bld) 1.1 % 0.2 - 2.0 % [facility] Eosinophils/100 WBC (Bld) 2 % 0.9 - 7.0 % [facility] Erythrocyte distribution width (RBC) [Ratio] 12.5 % 11.0 - 15.0 % [facility] Hematocrit (Bld) [Volume fraction] 38.6 % 36.0 - 48.0 % [facility] Hemoglobin (Bld) [Mass/Vol] 12.7 g/dL 12.0 - 16.0 g/dL [facility] IMMATURE GRANULOCYTES ABS AUTO 0.02 [facility] Immature granulocytes/100 WBC (Bld) 0.3 % 0.0 - 0.5 % [facility] Interpretation and review of laboratory results Abnormal [facility] LYMPHOCYTES ABSOLUTE AUTO 2.1 [facility] Lymphocytes/100 WBC (Bld) 33.2 % 20.5 - 60.0 % [facility] MCH (RBC) [Entitic mass] 31.6 pg 26.7 - 34.0 pg [facility] MCHC (RBC) [Mass/Vol] 32.9 g/dL 29.9 - 35.2 g/dL [facility] MCV (RBC) [Entitic vol] 96 fL 81.0 - 99.0 fL [facility] MONOCYTES ABSOLUTE AUTO 0.6 [facility] Monocytes/100 WBC (Bld) 9.5 % 1.7 - 12.0 % [facility] NEUTROPHILS ABSOLUTE AUTO 3.5 [facility] Neutrophils/100 WBC (Bld) 53.9 % 43.0 - 75.0 % [facility] Platelet mean volume (Bld) [Entitic vol] 10.3 fL 9.5 - 13.5 fL [facility] EO # 0.1 [facility] PLT 233 [facility] RBC 4.02 Low [facility] WBC 6.4 [facility] ALL CBC WITH AUTO DIFFon BASOPHILS ABSOLUTE AUTO 0.1 [facility] Basophils/100 WBC (Bld) 1.5 % 0.2 - 2.0 % [facility] Eosinophils/100 WBC (Bld) 3.2 % 0.9 - 7.0 % [facility] Erythrocyte distribution width (RBC) [Ratio] 13.2 % 11.0 - 15.0 % [facility] Hematocrit (Bld) [Volume fraction] 41.7 % 36.0 - 48.0 % [facility] Hemoglobin (Bld) [Mass/Vol] 13.2 g/dL 12.0 - 16.0 g/dL [facility] IMMATURE GRANULOCYTES ABS AUTO 0.04 High [facility] Immature granulocytes/100 WBC (Bld) 0.6 % High 0.0 - 0.5 % [facility] Interpretation and review of laboratory results Abnormal [facility] LYMPHOCYTES ABSOLUTE AUTO 2.5 [facility] Lymphocytes/100 WBC (Bld) 38.4 % 20.5 - 60.0 % [facility] MCH (RBC) [Entitic mass] 30.6 pg 26.7 - 34.0 pg [facility] MCHC (RBC) [Mass/Vol] 31.7 g/dL 29.9 - 35.2 g/dL [facility] MCV (RBC) [Entitic vol] 96.5 fL 81.0 - 99.0 fL [facility] MONOCYTES ABSOLUTE AUTO 0.8 [facility] Monocytes/100 WBC (Bld) 11.8 % 1.7 - 12.0 % [facility] NEUTROPHILS ABSOLUTE AUTO 2.9 [facility] Neutrophils/100 WBC (Bld) 44.5 % 43.0 - 75.0 % [facility] Platelet mean volume (Bld) [Entitic vol] 10.2 fL 9.5 - 13.5 fL [facility] EO # 0.2 [facility] PLT 259 [facility] RBC 4.32 [facility] WBC 6.6 [facility] Activated partial thrombopla stin time (aPTT) in platelet poor plasma by coagulation aOrdered By: Candelaria Falk on 04-25-2023 aPTT Coag (PPP) [Time] 27.5 s 25.1-36.5 [facility] Comment on above: A hematocrit value g reater than 55% may lead to inaccurate results in coagulation testing. Patients having hematocrit values >55% require a special collection tube for coagulation studies. Please contact the laboratory at [phone] for redraw instructions. B-Type Natriuretic Peptideon 04-25-2023 Natriuretic peptide B (Bld) [Mass/Vol] 44.0 pg/mL Normal 5-100 [facility] Comment on above: Result Comment: PERF ORMED BY: [place] [address] PATHOLOGIST HOME MANAGER YUSRA WHITE M.D. Performed By: #### P TT, BMP, CBC, HS TROP, PT, BNP #### [address] Basic Metabolic Panelon 04-12 Anion gap [Moles/Vol] 12.1 mmol/L Normal 6.0-15.0 [facility] Comment on above: Performed By: #### P TT, BMP, CBC, HS TROP, PT, BNP #### [facility] [address] [place] [address] [place] Calcium [Mass/Vol] 9.5 mg/dL Normal 8.6-10.3 [facility] Comment on above: Performed By: #### P TT, BMP, CBC, HS TROP, PT, BNP #### [facility] [address] [place] [address] [place] Chloride [Moles/Vol] 103 mmol/L Normal 98-107 [facility] Comment on above: Performed By: #### P TT, BMP, CBC, HS TROP, PT, BNP #### [place] [address] [place] CO2 [Moles/Vol] 27.0 mmol/L Normal 21.0-31.0 [facility] Comment on above: Performed By: #### P TT, BMP, CBC, HS TROP, PT, BNP #### [facility] [address] Creatinine [Mass/Vol] 0.81 mg/dL Normal 0.60-1.20 [facility] Comment on above: Performed By: #### P TT, BMP, CBC, HS TROP, PT, BNP #### [facility] [address] [place] [address] [place] Creatinine Clr Calc Pharmacy 57.40 [facility] Comment on above: Result Comment: PERF ORMED BY: [place] [address] PATHOLOGIST HOME MANAGER YUSRA WHITE M.D. Performed By: #### P TT, BMP, CBC, HS TROP, PT, BNP #### [address] GFR/1.73 sq M.predicted MDRD (S/P/Bld) [Vol rate/Area] mL/min/{1.73_m2} [facility] Comment on above: Performed By: #### P TT, BMP, CBC, HS TROP, PT, BNP #### [address] Glucose [Mass/Vol] 87 mg/dL Normal 70-100 [facility] Comment on above: Result Comment: [place] Glucose Reference Range is dependent on time and content of last meal. Glucose of more than 200 mg/dL in a nonstressed, ambulatory subject supports the diagnosis of Diabetes Mellitus. ADA recommended reference range Performed By: #### P TT, BMP, CBC, HS TROP, PT, BNP #### [facility] [address] Potassium [Moles/Vol] 4.1 mmol/L Normal 3.5-5.1 [facility] Comment on above: Performed By: #### P TT, BMP, CBC, HS TROP, PT, BNP #### [address] [place] [address] [place] Sodium [Moles/Vol] 138 mmol/L Normal 136-145 [facility] Comment on above: Performed By: #### P TT, BMP, CBC, HS TROP, PT, BNP #### [facility] [address] Urea nitrogen [Mass/Vol] 17 mg/dL Normal 7-25 [facility] Comment on above: Performed By: #### P TT, BMP, CBC, HS TROP, PT, BNP #### [facility] [address] Basophils Auto (Bld) [#/Vol] Ordered By: Candelaria Falk on 04-25-2023 Basophils (Bld) [#/Vol] 0.0 10*3/uL 0.0-0.2 [facility] Basophils/100 WBC Auto (Bld) Ordered By: Candelaria Falk on 04-25-2023 Basophils/100 WBC (Bld) 0.3 % . [facility] COVID CepheidOrdered By: Carie Falk on 04-25-2023 SARS-CoV-2 (COVID-19) Ab IA Ql Negative Negative [facility] Comment on above: This is a duplicate Cepheid Xpert Xpress CoV-2/Flu/RSV Plus RNA by RT-PCR result to be used for statistical tracking purpose only. SARS-CoV-2 (COVID-19) RNA CASSIDY+probe Ql (Unsp spec) [facility] COVID-19 / Flu A/B / RSV [...] or Cepheid Disclaimer revoked sooner. PERFORMED BY: [place] [address] PATHOLOGIST HOME MANAGER YUSRA WHITE M.D. [facility] Comment on above: Performed By: #### C EPHEID NEG, COVID19 FLU RSV #### [address] head/brain wo jaye 04-25 CT head/brain wo [facility] [address] [place] [address] CT Scan Report Signed Patient: Edilma Leonardo MR#: [id number] : 1955 Acct:[id number] Age/Sex: 67 / F ADM Date: 04/25/23 Loc: ER Room: Type: [facility] ER Attending Dr: Copies to: Candelaria Falk [...] Lamin Park M.D.04/25/2023 9:04 PM Dictation Location: [place] [address] Transcribed By: [facility] 04/25/232103 Dictated By: Lamin Park II, MD 04/25/232101 Signed By: 04/25/232103 Normal [facility] Calcium [Mass/volume] in Ser um or PlasmaOrdered By: Candelaria Falk on 04-25-2023 Calcium [Mass/Vol] 9.5 mg/dL 8.6-10.3 [facility] Carbon dioxide, total [Moles /volume] in Serum or PlasmaOrdered By: Candelaria Falk on 04-25-2023 CO2 [Moles/Vol] 27.0 mmol/L 21.0-31.0 [facility] Cepheid COVID PCR Negativeon 04-25-2023 SARS-CoV-2 (COVID-19) RNA CASSIDY+probe Ql (Unsp spec) Negative Normal Negative [facility] Comment on above: Result Comment: This is a duplicate Senscient Xpert Xpress CoV-2/Flu/RSV Plus RNA by RT-PCR result to be used for statistical tracking purpose only. PERFORMED BY: [place] [address] PATHOLOGIST HOME MANAGER YUSRA WHITE M.D. Performed By: #### C EPHEID NEG, COVID19 FLU RSV #### [place] [address] [place] Chloride [Moles/volume] in S pawel or PlasmaOrdered By: Candelaria Falk on 04-25-2023 Chloride [Moles/Vol] 103 mmol/L 98-107 [facility] Complete Blood Count Auto Di ffon 04-25-2023 Basophils (Bld) [#/Vol] 0.0 10*3/uL Normal 0.0-0.2 [facility] Comment on above: Result Comment: PERF ORMED BY: [place] [address] PATHOLOGIST HOME MANAGER YUSRA WHITE M.D. Performed By: #### P TT, BMP, CBC, HS TROP, PT, BNP #### [place] [address] [place] Basophils/100 WBC (Bld) 0.3 % Normal . [facility] Comment on above: Performed By: #### P TT, BMP, CBC, HS TROP, PT, BNP #### [place] [address] [place] Eosinophils (Bld) [#/Vol] 0.2 10*3/uL Normal 0.0-0.45 [facility] Comment on above: Performed By: #### P TT, BMP, CBC, HS TROP, PT, BNP #### [place] [address] [place] Eosinophils/100 WBC (Bld) 2.6 % Normal . [facility] Comment on above: Performed By: #### P TT, BMP, CBC, HS TROP, PT, BNP #### [address] Erythrocyte distribution width (RBC) [Ratio] 13.5 % Normal 11.9-15.3 [facility] Comment on above: Performed By: #### P TT, BMP, CBC, HS TROP, PT, BNP #### [address] Hematocrit (Bld) [Volume fraction] 42.5 % Normal 34.0-46.4 [facility] Comment on above: Performed By: #### P TT, BMP, CBC, HS TROP, PT, BNP #### [address] Hemoglobin (Bld) [Mass/Vol] 14.4 g/dL Normal 11.8-15.4 [facility] Comment on above: Performed By: #### P TT, BMP, CBC, HS TROP, PT, BNP #### [address] Lymphocytes (Bld) [#/Vol] 2.9 10*3/uL Normal 1.00-4.8 [facility] Comment on above: Performed By: #### P TT, BMP, CBC, HS TROP, PT, BNP #### [address] Lymphocytes/100 WBC (Bld) 40.1 % Normal . [facility] Comment on above: Performed By: #### P TT, BMP, CBC, HS TROP, PT, BNP #### [address] MCH (RBC) [Entitic mass] 31.9 pg Normal 24.7-34.3 [facility] Comment on above: Performed By: #### P TT, BMP, CBC, HS TROP, PT, BNP #### [address] MCV (RBC) [Entitic vol] 93.8 fL Normal 80-100 [facility] Comment on above: Performed By: #### P TT, BMP, CBC, HS TROP, PT, BNP #### [facility] [address] Mean Corpuscular HGB Conc 34.0 g/dL Normal 32.0-35.0 [facility] Comment on above: Performed By: #### P TT, BMP, CBC, HS TROP, PT, BNP #### [facility] [address] Monocytes (Bld) [#/Vol] 0.6 10*3/uL Normal 0.0-0.8 [facility] Comment on above: Performed By: #### P TT, BMP, CBC, HS TROP, PT, BNP #### [address] Monocytes/100 WBC (Bld) 20.21 % High 0.00-20.00 [facility] Comment on above: Result Comment: For adults in ED, MDW > 20.0 may be associated with a higher risk of sepsis during the first 12 hrs of hospital admission Performed By: #### P TT, BMP, CBC, HS TROP, PT, BNP #### [address] Monocytes/100 WBC (Bld) 7.9 % Normal . [facility] Comment on above: Performed By: #### P TT, BMP, CBC, HS TROP, PT, BNP #### [place] [address] [place] Neutrophils (Bld) [#/Vol] 3.5 10*3/uL Normal 1.8-7.7 [facility] Comment on above: Performed By: #### P TT, BMP, CBC, HS TROP, PT, BNP #### [place] [address] [place] Neutrophils/100 WBC (Bld) 49.1 % Normal . [facility] Comment on above: Performed By: #### P TT, BMP, CBC, HS TROP, PT, BNP #### [place] [address] [place] NRBC% 0.0 /100{WBC} Normal 0-0.5 [facility] Comment on above: Performed By: #### P TT, BMP, CBC, HS TROP, PT, BNP #### [facility] [address] Platelet mean volume (Bld) [Entitic vol] 8.1 fL Normal 6.3-10.7 [facility] Comment on above: Performed By: #### P TT, BMP, CBC, HS TROP, PT, BNP #### [facility] [address] [place] [address] [place] Platelets (Bld) [#/Vol] 247 10*3/uL Normal 150-450 [facility] Comment on above: Performed By: #### P TT, BMP, CBC, HS TROP, PT, BNP #### [facility] [address] RBC (Bld) [#/Vol] 4.53 10*6/uL Normal 3.60-5.00 [facility] Comment on above: Performed By: #### P TT, BMP, CBC, HS TROP, PT, BNP #### [facility] [address] WBC (Bld) [#/Vol] 7.2 10*3/uL Normal 3.8-11.6 [facility] Comment on above: Performed By: #### P TT, BMP, CBC, HS TROP, PT, BNP #### [address] Creatinine [Mass/volume] in Serum or PlasmaOrdered By: Candelaria Falk on 04-25-2023 Creatinine [Mass/Vol] 0.81 mg/dL 0.60-1.20 [facility] ECG 12 lead ECGon 04-25-2023 ECG 12 lead ECG [facility] [address] [place] [address] Electrocardiograph Report Signed Patient: Edilma Leonardo MR#: [id number] : 1955 Acct:[id number] Age/Sex: 67 / F ADM Date: 04/25/23 [...] sinus rhythm Confirmed by Santiago BLAKE DO ([id number]) on 04/25/2023 6:14:25 PM Referred By: Electronically Signed By:Santiago BLAKE DO Transcribed By: MUS Signed By Santiago Blake DO 1 06/26/221813 Normal [facility] Eosinophils Auto (Bld) [#/Vo l]Ordered By: Candelaria Falk on 04-25-2023 Eosinophils (Bld) [#/Vol] 0.2 10*3/uL 0.0-0.45 [facility] Eosinophils/100 WBC Auto (Bl d)Ordered By: Candelaria Falk on 04-25-2023 Eosinophils/100 WBC (Bld) 2.6 % . [facility] Erythrocyte distribution wid th Auto (RBC) [Ratio]Ordered By: Candelaria Falk on 04-25-2023 Erythrocyte distribution width (RBC) [Ratio] 13.5 % 11.9-15.3 [facility] Glucose [Mass/volume] in Ser um or PlasmaOrdered By: Candelaria Falk on 04-25-2023 Glucose [Mass/Vol] 87 mg/dL 70-100 [facility] Comment on above: ADA recommended refe rence rangeRandom Glucose Reference Range is dependent on time and content of last meal. Glucose of more than 200 mg/dL in a nonstressed, ambulatory subject supports the diagnosis of Diabetes Mellitus. Hematocrit Auto (Bld) [Volum e fraction]Ordered By: Candelaria Falk on 04-25-2023 Hematocrit (Bld) [Volume fraction] 42.5 % 34.0-46.4 [facility] Hemoglobin [Mass/volume] in BloodOrdered By: Candelaria Falk on 04-25-2023 Hemoglobin (Bld) [Mass/Vol] 14.4 g/dL 11.8-15.4 [facility] INR in Platelet poor plasma by Coagulation assayOrdered By: Candelaria Falk on 04-25-2023 INR Coag (PPP) [Relative time] 1.0 {INR} [facility] Comment on above: INR Therapeutic Rang [...] RBC Auto (Bld) [#/Vol] 7.2 10*3/uL 3.8-11.6 [facility] Lymphocytes Auto (Bld) [#/Vo l]Ordered By: Candelaria Falk on 04-25-2023 Lymphocytes (Bld) [#/Vol] 2.9 10*3/uL 1.00-4.8 [facility] Lymphocytes/100 WBC Auto (Bl d)Ordered By: Candelaria Falk on 04-25-2023 Lymphocytes/100 WBC (Bld) 40.1 % . [facility] MCH Auto (RBC) [Entitic mass ]Ordered By: Candelaria Falk on 04-25-2023 MCH (RBC) [Entitic mass] 31.9 pg 24.7-34.3 [facility] MCHC Auto (RBC) [Mass/Vol]Or dered By: Candelaria Falk on 04-25-2023 MCHC (RBC) [Mass/Vol] 34.0 g/dL 32.0-35.0 [facility] MCV Auto (RBC) [Entitic vol] Ordered By: Candelaria Falk on 04-25-2023 MCV (RBC) [Entitic vol] 93.8 fL 80-100 [facility] Monocyte distribution width [Entitic volume] in Blood by AutomatedOrdered By: Candelaria Falk on 12-14-2023 Monocyte distribution width Auto (Bld) [Entitic vol] 20.21 % 0.00-20.00 [facility] Comment on above: For adults in ED, MD W > 20.0 may be associated with a higher risk of sepsis during the first 12 hrs of hospital admission Monocytes Auto (Bld) [#/Vol] Ordered By: Candelaria Falk on 04-25-2023 Monocytes (Bld) [#/Vol] 0.6 10*3/uL 0.0-0.8 [facility] Monocytes/100 WBC Auto (Bld) Ordered By: Candelaria Falk on 04-25-2023 Monocytes/100 WBC (Bld) 7.9 % . [facility] Natriuretic peptide B [Mass/ Vol]Ordered By: Candelaria Falk on 04-25-2023 Natriuretic peptide B (Bld) [Mass/Vol] 44.0 pg/mL 5-100 [facility] Neutrophils Auto (Bld) [#/Vo l]Ordered By: Candelaria Falk on 04-25-2023 Neutrophils (Bld) [#/Vol] 3.5 10*3/uL 1.8-7.7 [facility] Neutrophils/100 WBC Auto (Bl d)Ordered By: Candelaria Falk on 04-25-2023 Neutrophils/100 WBC (Bld) 49.1 % . [facility] No Panel InformationOrdered By: Candelaria Falk on 04-25-2023 Estimated GFR (CKD-EPI) > 60.0 mL/Min [facility] Creatinine Clearance (Chem 57.40 [facility] Nucleated erythrocytes [Pres ence] in Blood by Automated countOrdered By: Candelaria Falk on 04-25-2023 Nucleated RBC Auto Ql (Bld) 0.0 /100{WBC} 0-0.5 [facility] Partial Thromboplastin Timeo n 04-25-2023 aPTT Coag (Bld) [Time] 27.5 s Normal 25.1-36.5 [facility] Comment on above: Result Comment: A he matocrit value greater than 55% may lead to inaccurate results in coagulation testing. Patients having hematocrit values >55% require a special collection tube for coagulation studies. Please contact the laboratory at [phone] for redraw instructions. PERFORMED BY: [place] [address] PATHOLOGIST HOME MANAGER YUSRA WHITE M.D. Performed By: #### H S TROP #### [facility] [address] [place], [place] [id number] [facility] Platelet mean volume Auto (B ld) [Entitic vol]Ordered By: Candelaria Falk on 04-25-2023 Platelet mean volume (Bld) [Entitic vol] 8.1 fL 6.3-10.7 [facility] Platelets Auto (Bld) [#/Vol] Ordered By: Candelaria Falk on 04-25-2023 Platelets (Bld) [#/Vol] 247 10*3/uL 150-450 [facility] Potassium [Moles/volume] in Serum or PlasmaOrdered By: Candelaria Falk on 04-25-2023 Potassium [Moles/Vol] 4.1 mmol/L 3.5-5.1 [facility] Prothrombin Time INRon 04-25 INR Coag (PPP) [Relative time] 1.0 {INR} Normal [facility] Comment on above: Result Comment: INR [...] BMP, CBC, HS TROP, PT, BNP #### [facility] [address] [place] [id number] [facility] PT Coag (PPP) [Time] 11.5 s Normal 9.0-12.9 [facility] Comment on above: Result Comment: A he matocrit value greater than 55% may lead to inaccurate results in coagulation testing. Patients having hematocrit values >55% require a special collection tube for coagulation studies. Please contact the laboratory at [phone] for redraw instructions. Performed By: #### P TT, BMP, CBC, HS TROP, PT, BNP #### [facility] [address] Prothrombin time (PT)Ordered By: Candelaria Falk on 04-25-2023 PT Coag (PPP) [Time] 11.5 s 9.0-12.9 [facility] Comment on above: A hematocrit value g reater than 55% may lead to inaccurate results in coagulation testing. Patients having hematocrit values >55% require a special collection tube for coagulation studies. Please contact the laboratory at [phone] for redraw instructions. RBC Auto (Bld) [#/Vol]Ordere d By: Candelaria Falk on 04-25-2023 RBC (Bld) [#/Vol] 4.53 10*6/uL 3.60-5.00 [facility] Serum or plasma anion gap de terminationOrdered By: Candelaria Falk on 04-25-2023 Anion gap [Moles/Vol] 12.1 mmol/L 6.0-15.0 [facility] Sodium [Moles/volume] in Ser um or PlasmaOrdered By: Candelaria Falk on 04-25-2023 Sodium [Moles/Vol] 138 mmol/L 136-145 [facility] Troponin I High Sensitivityo n 04-25-2023 Troponin I High Sensitivity 3.8 pg/mL Normal 0.0-15.0 [facility] Comment on above: Result Comment: PERF ORMED BY: [place] [address] PATHOLOGIST HOME MANAGER YUSRA WHITE M.D. Performed By: #### H S TROP #### [facility] [address] [place] [address] [place] Troponin I High Sensitivity 3.9 pg/mL Normal 0.0-15.0 [facility] Comment on above: Result Comment: PERF ORMED BY: [place] [address] PATHOLOGIST HOME MANAGER YUSRA WHITE M.D. Performed By: #### P TT, BMP, CBC, HS TROP, PT, BNP #### [facility] [address] [place] [address] [facility] Troponin I.cardiac [Mass/vol ume] in Serum or Plasma by Detection limit <= 0.01 ng/Ordered By: Candelaria Falk on 04-25-2023 Troponin I.cardiac DL <= 0.01 ng/mL [Mass/Vol] 3.8 pg/mL 0.0-15.0 [facility] Urea nitrogen [Mass/volume] in Serum or PlasmaOrdered By: Candelaria Falk on 04-25-2023 Urea nitrogen [Mass/Vol] 17 mg/dL 7- [facility] WBC Auto (Bld) [#/Vol]Ordere d By: Candelaria Falk on 04-25-2023 WBC (Bld) [#/Vol] 7.2 10*3/uL 3.8-11.6 [facility] XR chest 2V*on 04-25-2023 XR chest 2V* [facility] [place] [address] [place] [address] XRay Report Signed Patient: Edilma Leonardo MR#: [id number] : 1955 Acct:[id number] Age/Sex: 67 / F ADM Date: 04/25/23 Loc: ER Room: Type: [facility] ER Attending Dr: Copies to: Candelaria Falk [...] Lamin Park M.D.04/25/2023 6:34 PM Dictation Location: [place] [address] Transcribed By: JONATHON 04/25/231833 Dictated By: Lamin Park II, MD 04/25/231832 Signed By: 04/25/231833 Normal [facility] CBC W MANUAL DIFFon 07-28-19 ATYPICAL LYMPH # Normal [facility] Comment on above: Performed By: #### F T3, ALT, AST, BMP, TSH, LIPID #### [facility] [address] [place] [address] [address] Reji Pickett ATYPICAL LYMPH % Normal [facility] Comment on above: Performed By: #### F T3, ALT, AST, BMP, TSH, LIPID #### [facility] [address] [place] [address] [address] Reji Pickett BAND # Normal 0.0-0.3 [facility] Comment on above: Performed By: #### F T3, ALT, AST, BMP, TSH, LIPID #### [facility] [address] [place] [address] [address] Reji Pickett BAND % Normal 0-5 [facility] Comment on above: Performed By: #### F T3, ALT, AST, BMP, TSH, LIPID #### [facility] [address] [place] [address] [address] Reji Pickett BASOM # 0.00 103/ul Normal 0.00-0.10 [facility] Comment on above: Performed By: #### F T3, ALT, AST, BMP, TSH, LIPID #### [facility] [address] [place] [address] [address] Reji Pickett BASOM % 0.0 % Critically low 0.2-2.0 [facility] Comment on above: Performed By: #### F T3, ALT, AST, BMP, TSH, LIPID #### [facility] [address] [place] [address] [address] Reji Pickett BLAST # Normal [facility] Comment on above: Performed By: #### F T3, ALT, AST, BMP, TSH, LIPID #### [facility] [address] [place] [address] [address] Reji Pickett BLAST % Normal [facility] Comment on above: Performed By: #### F T3, ALT, AST, BMP, TSH, LIPID #### [facility] [address] [place] [address] [address] Reji Pickett CORRECTED WBC Normal 4.0-11.0 [facility] Comment on above: Performed By: #### F T3, ALT, AST, BMP, TSH, LIPID #### [facility] [address] [place] [address] [address] Reji Pickett EOS # 0.10 103/ul Normal 0.00-0.70 [facility] Comment on above: Performed By: #### F T3, ALT, AST, BMP, TSH, LIPID #### [facility] [address] [place] [address] [address] Reji Pickett EOS% 1.0 % Normal 0.9-7.0 [facility] Comment on above: Performed By: #### F T3, ALT, AST, BMP, TSH, LIPID #### [facility] [address] [place] [address] Dr. Reji Pickett HCT 41.1 % Normal 36.0-48.0 [facility] Comment on above: Performed By: #### F T3, ALT, AST, BMP, TSH, LIPID #### [facility] [address] [place] [address] [address] Reji Pickett HGB 13.6 g/dl Normal 12.0-16.0 [facility] Comment on above: Performed By: #### F T3, ALT, AST, BMP, TSH, LIPID #### [facility] [address] [place] [address] [address] Reji Pickett LYMPHM # 0.40 103/ul Critically low 1.20-3.80 [facility] Comment on above: Performed By: #### F T3, ALT, AST, BMP, TSH, LIPID #### [facility] [address] [place] [address] [address] Reji Pickett LYMPHM% 4.0 % Critically low 20.5-60.0 [facility] Comment on above: Performed By: #### F T3, ALT, AST, BMP, TSH, LIPID #### [facility] [address] [place] [address] Dr. Reji Pickett MCH 31.3 pg Normal 26.7-34.0 [facility] Comment on above: Performed By: #### F T3, ALT, AST, BMP, TSH, LIPID #### [facility] [address] [place] [address] Dr. Reji Pickett MCHC 33.1 g/dl Normal 29.9-35.2 [facility] Comment on above: Performed By: #### F T3, ALT, AST, BMP, TSH, LIPID #### [facility] [address] [place] [address] Dr. Reji Pickett MCV 94.5 fL Normal 81.0-99.0 [facility] Comment on above: Performed By: #### F T3, ALT, AST, BMP, TSH, LIPID #### [facility] [address] [place] [address] Dr. Reji Pickett METAMYELOCYTE # Normal [facility] Comment on above: Performed By: #### F T3, ALT, AST, BMP, TSH, LIPID #### [facility] [address] [place] [address] Dr. Reji Pickett METAMYELOCYTE % Normal [facility] Comment on above: Performed By: #### F T3, ALT, AST, BMP, TSH, LIPID #### [facility] [address] [place] [address] Dr. Reji Pickett MONOM# 0.61 103/ul Normal 0.30-0.80 [facility] Comment on above: Performed By: #### F T3, ALT, AST, BMP, TSH, LIPID #### [facility] [address] [place] [address] Dr. Reji Pickett MONOM% 6.0 % Normal 1.7-12.0 [facility] Comment on above: Performed By: #### F T3, ALT, AST, BMP, TSH, LIPID #### [facility] [address] [place] [address] Dr. Reji Pickett MPV 9.8 fL Normal 9.5-13.5 [facility] Comment on above: Performed By: #### F T3, ALT, AST, BMP, TSH, LIPID #### [facility] [address] [place] [address] Dr. Reji Pickett MYELOCYTE # Normal [facility] Comment on above: Performed By: #### F T3, ALT, AST, BMP, TSH, LIPID #### [facility] [address] [place] [address] Dr. Reji Pickett MYELOCYTE % Normal [facility] Comment on above: Performed By: #### F T3, ALT, AST, BMP, TSH, LIPID #### [facility] [address] [place] [address] Dr. Reji Pickett NRBC Normal [facility] Comment on above: Performed By: #### F T3, ALT, AST, BMP, TSH, LIPID #### [facility] [address] [place] [address] Dr. Reji Pickett PLT 191 103/ul Normal 150-450 [facility] Comment on above: Performed By: #### F T3, ALT, AST, BMP, TSH, LIPID #### [facility] [address] [place] [address] Dr. Reji Pickett RBC 4.35 106/ul Normal 4.20-5.40 [facility] Comment on above: Performed By: #### F T3, ALT, AST, BMP, TSH, LIPID #### [facility] [address] [place] [address] Dr. Reji Pickett RDW 13.7 % Normal 11.0-15.0 [facility] Comment on above: Performed By: #### F T3, ALT, AST, BMP, TSH, LIPID #### [facility] [address] [place] [address] Dr. Reji Pickett SEG # 8.99 103/ul Critically high 1.40-6.50 [facility] Comment on above: Performed By: #### F T3, ALT, AST, BMP, TSH, LIPID #### [facility] [address] [place] [address] Dr. Reji Pickett SEG % 89.0 % Critically high 43.0-75.0 [facility] Comment on above: Performed By: #### F T3, ALT, AST, BMP, TSH, LIPID #### [facility] [address] [place] [address] Dr. Reji Pickett WBC 10.1 103/ul Normal 4.0-11.0 [facility] Comment on above: Performed By: #### F T3, ALT, AST, BMP, TSH, LIPID #### [facility] [address] [place] [address] Dr. Reji Pickett CPKon 07-27-2022 CK [Catalytic activity/Vol] 53 U/L Normal 26-192 [facility] Comment on above: Performed By: #### F T3, ALT, AST, BMP, TSH, LIPID #### [facility] [address] [place] [address] Dr. Reji Pickett ER URINE PROFILEon 3 Bilirubin Ql (U) Negative Normal NEGATIVE [facility] Comment on above: Performed By: #### E RUR #### [facility] [address] [place] [address] Dr. Reji Pickett Clarity (U) CLEAR Normal CLEAR [facility] Comment on above: Performed By: #### E RUR #### [facility] [address] [place] [address] Dr. Reji Pickett Color (U) LT. YELLOW Normal YELLOW [facility] Comment on above: Performed By: #### E RUR #### [facility] [address] [place] [address] Dr. Reji Pickett ERUAHD A micrscopic examina tion will be performed if indicated. Normal [facility] Comment on above: Performed By: #### E RUR #### [facility] [address] [place] [address] Dr. Reji Pickett Glucose Ql (U) Negative Normal NEGATIVE [facility] Comment on above: Performed By: #### E RUR #### [facility] [address] [place] [address] Dr. Reji Pickett Hemoglobin Ql (U) Negative Normal NEGATIVE [facility] Comment on above: Performed By: #### E RUR #### [facility] [address] [place] [address] Dr. Reji Pickett Ketones Ql (U) TRACE Abnormal NEGATIVE [facility] Comment on above: Performed By: #### E RUR #### [facility] [address] [place] [address] Dr. Reji Pickett LEUKOCYTES Negative Normal NEGATIVE [facility] Comment on above: Performed By: #### E RUR #### [facility] [address] [place] [address] Dr. Reji Pickett Nitrite Ql (U) Negative Normal NEGATIVE [facility] Comment on above: Performed By: #### E RUR #### [facility] [address] [place] [address] Dr. Reji Pickett pH (U) 6.0 [pH] Normal 5-9 [facility] Comment on above: Performed By: #### E RUR #### [facility] [address] [place] [address] Dr. Reji Pickett SPEC GRAVITY 1.020 Normal 1.005-<=1. 025 [facility] Comment on above: Performed By: #### E RUR #### [facility] [address] [place] [address] Dr. Reji Pickett UA PROTEIN Negative Normal NEGATIVE/ TRACE [facility] Comment on above: Performed By: #### E RUR #### [facility] [address] [place] [address] Dr. Reji Pickett UR MICRO IND NOT INDICATED Normal [facility] Comment on above: Performed By: #### E RUR #### [facility] [address] [place] [address] Dr. Reji Pickett Urobilinogen Qn (U) 0.2 {Yamile'U}/dL Normal 0.2 - 1. 0 [facility] Comment on above: Performed By: #### E RUR #### [facility] [address] [place] [address] Dr. Reji Pickett LIPASEon 07-27-2022 Lipase [Catalytic activity/Vol] 138.0 U/L Normal 73.0-393.0 [facility] Comment on above: Performed By: #### F T3, ALT, AST, BMP, TSH, LIPID #### [facility] [address] [place] [address] Dr. Reji Pickett PROF 14(COMP METB)on 023 Albumin [Mass/Vol] 3.8 g/dL Normal 3.4-5.0 [facility] Comment on above: Performed By: #### F T3, ALT, AST, BMP, TSH, LIPID #### [facility] [address] [place] [address] Dr. Reji Pickett Albumin/Globulin [Mass ratio] 1.4 {ratio} Normal [facility] Comment on above: Performed By: #### F T3, ALT, AST, BMP, TSH, LIPID #### [facility] [address] [place] [address] Dr. Reji Pickett ALP [Catalytic activity/Vol] 74 U/L Normal 46-116 [facility] Comment on above: Performed By: #### F T3, ALT, AST, BMP, TSH, LIPID #### [facility] [address] [place] [address] Dr. Reji Pickett ALT [Catalytic activity/Vol] 36 U/L Normal 14-59 [facility] Comment on above: Performed By: #### F T3, ALT, AST, BMP, TSH, LIPID #### [facility] [address] [place] [address] Dr. Reji Pickett Anion gap [Moles/Vol] 14.1 mmol/L Normal [facility] Comment on above: Performed By: #### F T3, ALT, AST, BMP, TSH, LIPID #### [facility] [address] [place] [address] Dr. Reji Pickett AST [Catalytic activity/Vol] 25 U/L Normal 15-37 [facility] Comment on above: Performed By: #### F T3, ALT, AST, BMP, TSH, LIPID #### [facility] [address] [place] [address] Dr. Reji Pickett Bilirubin [Mass/Vol] 0.8 mg/dL Normal 0.2-1.0 [facility] Comment on above: Performed By: #### F T3, ALT, AST, BMP, TSH, LIPID #### [facility] [address] [address] [address] Reji Picktet Calcium [Mass/Vol] 8.7 mg/dL Normal 8.5-10.1 [facility] Comment on above: Performed By: #### F T3, ALT, AST, BMP, TSH, LIPID #### [facility] [address] [address] [address] Reji Pickett Chloride [Moles/Vol] 111 mmol/L Critically high 98-107 [facility] Comment on above: Performed By: #### F T3, ALT, AST, BMP, TSH, LIPID #### [facility] [address] [address] [address] Reji Pickett CO2 [Moles/Vol] 22.7 mmol/L Normal 21.0-32.0 [facility] Comment on above: Performed By: #### F T3, ALT, AST, BMP, TSH, LIPID #### [facility] [address] [place] [address] Dr. Reji Pickett Creatinine [Mass/Vol] 0.79 mg/dL Normal 0.55-1.02 [facility] Comment on above: Performed By: #### F T3, ALT, AST, BMP, TSH, LIPID #### [facility] [address] [place] [address] Dr. Reji Pickett EGFR-AF [place] >60 Normal >=60 [facility] Comment on above: Performed By: #### F T3, ALT, AST, BMP, TSH, LIPID #### [facility] [address] [place] [address] Dr. Reji Pickett EGFR-NON AF [place] >60 Normal >=60 [facility] Comment on above: Performed By: #### F T3, ALT, AST, BMP, TSH, LIPID #### [facility] [address] [place] [address] Dr. Reji Pickett Globulin (S) [Mass/Vol] 2.7 g/dL Normal [facility] Comment on above: Performed By: #### F T3, ALT, AST, BMP, TSH, LIPID #### [facility] [address] [place] [address] Dr. Reji Pickett Glucose [Mass/Vol] 94 mg/dL Normal 74-106 [facility] Comment on above: Performed By: #### F T3, ALT, AST, BMP, TSH, LIPID #### [facility] [address] [address] [address] Reji Pickett Potassium [Moles/Vol] 4.8 mmol/L Normal 3.5-5.1 [facility] Comment on above: Performed By: #### F T3, ALT, AST, BMP, TSH, LIPID #### [facility] [address] [address] [address] Reji Pickett Protein [Mass/Vol] 6.5 g/dL Normal 6.4-8.2 [facility] Comment on above: Performed By: #### F T3, ALT, AST, BMP, TSH, LIPID #### [facility] [address] [place] [address] Dr. Reji Pickett Sodium [Moles/Vol] 143 mmol/L Normal 136-145 [facility] Comment on above: Performed By: #### F T3, ALT, AST, BMP, TSH, LIPID #### [facility] [address] [address] [address] Reji Pickett Urea nitrogen [Mass/Vol] 20.0 mg/dL Critically high 7.0-18.0 [facility] Comment on above: Performed By: #### F T3, ALT, AST, BMP, TSH, LIPID #### [facility] [address] [address] [address] Reji Pickett Urea nitrogen/Creatinine [Mass ratio] 25.3 mg/mg Normal [facility] Comment on above: Performed By: #### F T3, ALT, AST, BMP, TSH, LIPID #### [facility] [address] [place] [address] Dr. Reji Pickett TROPONIN, HIGH SENSITIVITYon 07-27-2022 HSTROP 4.5 pg/mL Normal 4.0-51.3 [facility] Comment on above: Result Comment: CUT- OFF POINTS HAVE BEEN ESTABLISHED BASED ON THE FOURTH UNIVERSAL DEFINITIONS OF MYOCARDIAL INFARCTION. THE UPPER REFERENCE LIMIT (URL) OF TROPONIN, DEFINED THE 99TH PERCENTILE OF cTnI DISTRIBUTION IN A REFERENCE POPULATION, HAS BEEN CONFIRMED THE DECISION THRESHOLD FOR NE DIAGNOSIS. Performed By: #### F T3, ALT, AST, BMP, TSH, LIPID #### [facility] [address] [address] CHEST WO CONon [...] 2021-10-31 11:54 Normal [facility] MAMM SCREEN 3D TACO CADon 10-31-2021 MG MAMM SCREEN 3D TACO CAD Patient: EDILMA LEONARDO Exam Date: 10/31/2021 : 1955 Gender:F Ordering : DR OLU JOHNSON . Admission #: [id number] Family : Order #: [id number] CLICK HERE TO VIEW EXAM RADIOLOGY REPORT [...] throat cancer at age 81. LOCATION: [facility] BREAST COMPOSITION: Heterogeneously dense,which may obscure small [...] MD on 10/31/2021 at 13:49 Normal [facility] CBC AUTO DIFFon 10-18-2021 BASO # 0.1 103/ul Normal 0.0-0.1 [facility] Comment on above: Performed By: #### F T3, ALT, AST, BMP, TSH, LIPID #### [facility] [address] [place] [address] Dr. Reji Pickett Basophils/100 WBC (Bld) 1.2 % Normal 0.2-2.0 [facility] Comment on above: Performed By: #### F T3, ALT, AST, BMP, TSH, LIPID #### [facility] [address] [place] [address] Dr. Reji Pickett EO # 0.1 103/ul Normal 0.0-0.7 [facility] Comment on above: Performed By: #### F T3, ALT, AST, BMP, TSH, LIPID #### [facility] [address] [place] [address] Dr. Reji Pickett Eosinophils/100 WBC (Bld) 2.3 % Normal 0.9-7.0 [facility] Comment on above: Performed By: #### F T3, ALT, AST, BMP, TSH, LIPID #### [facility] [address] [place] [address] Dr. Reji Pickett Erythrocyte distribution width (RBC) [Ratio] 14.3 % Normal 11.0-15.0 [facility] Comment on above: Performed By: #### F T3, ALT, AST, BMP, TSH, LIPID #### [facility] [address] [place] [address] Dr. Reji Pickett Hematocrit (Bld) [Volume fraction] 40.6 % Normal 36.0-48.0 [facility] Comment on above: Performed By: #### F T3, ALT, AST, BMP, TSH, LIPID #### [facility] [address] [place] [address] Dr. Reji Pickett Hemoglobin (Bld) [Mass/Vol] 12.6 g/dL Normal 12.0-16.0 [facility] Comment on above: Performed By: #### F T3, ALT, AST, BMP, TSH, LIPID #### [facility] [address] [place] [address] Dr. Reji Pickett IG # 0.01 10e3/ul Normal 0.00-0.03 [facility] Comment on above: Performed By: #### F T3, ALT, AST, BMP, TSH, LIPID #### [facility] [address] [place] [address] Dr. Reji Pickett IG % 0.2 % Normal 0.0-0.5 [facility] Comment on above: Performed By: #### F T3, ALT, AST, BMP, TSH, LIPID #### [facility] [address] [place] [address] Dr. Reji Pickett LYMPH # 2.2 103/ul Normal 1.2-3.8 [facility] Comment on above: Performed By: #### F T3, ALT, AST, BMP, TSH, LIPID #### [facility] [address] [place] [address] Dr. Reji Pickett Lymphocytes/100 WBC (Bld) 39.1 % Normal 20.5-60.0 [facility] Comment on above: Performed By: #### F T3, ALT, AST, BMP, TSH, LIPID #### [facility] [address] [place] [address] Dr. Reji Pickett MANUAL DIFF REQ NO Normal [facility] Comment on above: Performed By: #### F T3, ALT, AST, BMP, TSH, LIPID #### [facility] [address] [place] [address] Dr. Reji Pickett MCH (RBC) [Entitic mass] 31.0 pg Normal 26.7-34.0 [facility] Comment on above: Performed By: #### F T3, ALT, AST, BMP, TSH, LIPID #### [facility] [address] [place] [address] Dr. Reji Pickett MCHC (RBC) [Mass/Vol] 31.0 g/dL Normal 29.9-35.2 [facility] Comment on above: Performed By: #### F T3, ALT, AST, BMP, TSH, LIPID #### [facility] [address] [place] [address] Dr. Reji Pickett MCV (RBC) [Entitic vol] 99.8 fL Critically high 81.0-99.0 [facility] Comment on above: Performed By: #### F T3, ALT, AST, BMP, TSH, LIPID #### [facility] [address] [place] [address] Dr. Reji Pickett MONO # 0.6 103/ul Normal 0.3-0.8 [facility] Comment on above: Performed By: #### F T3, ALT, AST, BMP, TSH, LIPID #### [facility] [address] [place] [address] Dr. Reji Pickett Monocytes/100 WBC (Bld) 10.5 % Normal 1.7-12.0 [facility] Comment on above: Performed By: #### F T3, ALT, AST, BMP, TSH, LIPID #### [facility] [address] [place] [address] Dr. Reji Pickett NEUT # 2.7 103/ul Normal 1.4-6.5 [facility] Comment on above: Performed By: #### F T3, ALT, AST, BMP, TSH, LIPID #### [facility] [address] [place] [address] Dr. Reji Pickett Neutrophils/100 WBC (Bld) 46.7 % Normal 43.0-75.0 [facility] Comment on above: Performed By: #### F T3, ALT, AST, BMP, TSH, LIPID #### [facility] [address] [place] [address] Dr. Reji Pickett Platelet mean volume (Bld) [Entitic vol] 11.2 fL Normal 9.5-13.5 [facility] Comment on above: Performed By: #### F T3, ALT, AST, BMP, TSH, LIPID #### [facility] [address] [place] [address] Dr. Reji Pickett PLT 242 103/ul Normal 150-450 [facility] Comment on above: Performed By: #### F T3, ALT, AST, BMP, TSH, LIPID #### [facility] [address] [place] [address] Dr. Reji Pickett RBC 4.07 106/ul Critically low 4.20-5.40 [facility] Comment on above: Performed By: #### F T3, ALT, AST, BMP, TSH, LIPID #### [facility] [address] [place] [address] Dr. Reji Pickett WBC 5.7 103/ul Normal 4.0-11.0 [facility] Comment on above: Performed By: #### F T3, ALT, AST, BMP, TSH, LIPID #### [facility] [address] [place] [address] Dr. Reji Pickett FREE T3on 10-18-2021 FREE T3 1.91 pg/mlL Critically low 2.18-3.98 [facility] Comment on above: Performed By: #### F T3, ALT, AST, BMP, TSH, LIPID #### [facility] [address] [place] [address] Dr. Reji Pickett FREE T4on 10-18-2021 Free T4 [Mass/Vol] 1.06 ng/dL Normal 0.76-1.46 [facility] Comment on above: Performed By: #### F T4 #### [facility] [address] [place] [address] Dr. Reji Pickett LIPID PROFILEon 10-18-2021 CHOL-HDL RATIO NORM SEE BELOW Normal [facility] Comment on above: Result Comment: 3.3 - 4.4 LOW RISK 4.4 - 7.1 AVERAGE RISK 7.1 - 11.0 MODERATE RISK >11.0 HIGH RISK Performed By: #### F T3, ALT, AST, BMP, TSH, LIPID #### [facility] [address] [address] [address] Reji Pickett Cholesterol [Mass/Vol] 181 mg/dL Normal <=200 [facility] Comment on above: Performed By: #### F T3, ALT, AST, BMP, TSH, LIPID #### [facility] [address] [address] [address] Reji Pickett Cholesterol in HDL [Mass/Vol] 69 mg/dL Critically high 40-60 [facility] Comment on above: Performed By: #### F T3, ALT, AST, BMP, TSH, LIPID #### [facility] [address] [address] [address] Reji Pickett Cholesterol in LDL [Mass/Vol] 97.4 mg/dL Normal [facility] Comment on above: Performed By: #### F T3, ALT, AST, BMP, TSH, LIPID #### [facility] [address] [address] [address] Reji Pickett Cholesterol.total/Chol esterol in HDL [Mass ratio] 2.6 {ratio} Normal [facility] Comment on above: Performed By: #### F T3, ALT, AST, BMP, TSH, LIPID #### [facility] [address] [place] [address] Dr. Reji Pickett HDL NORMAL > or = 60 mg/dl - LO W CARDIOVASCULAR RISK <40 mg/dl - HIGH CARDIOVASCULAR RISK Normal [facility] Comment on above: Performed By: #### F T3, ALT, AST, BMP, TSH, LIPID #### [facility] [address] [address] [address] Reji Pickett LDL CALC NORMAL SEE BELOW Normal [facility] Comment on above: Result Comment: <100 mg/dl OPTIMAL 100 - 129 mg/dl NEAR OR ABOVE OPTIMAL 130 - 159 mg/dl BORDERLINE HIGH 160 - 189 mg/dl HIGH >190 mg/dl VERY HIGH Performed By: #### F T3, ALT, AST, BMP, TSH, LIPID #### [facility] [address] [address] [address] Reji Pickett Triglyceride [Mass/Vol] 73 mg/dL Normal <=150 [facility] Comment on above: Performed By: #### F T3, ALT, AST, BMP, TSH, LIPID #### [facility] [address] [address] [address] Reji Pickett VLDL CALC 14.6 mg/dL Normal [facility] Comment on above: Performed By: #### F T3, ALT, AST, BMP, TSH, LIPID #### [facility] [address] [place] [address] Dr. Reji Pickett PROF CHEM 8 (BAS METB)on Anion gap [Moles/Vol] 14.1 mmol/L Normal [facility] Comment on above: Performed By: #### F T3, ALT, AST, BMP, TSH, LIPID #### [facility] [address] [place] [address] Dr. Reji Pickett Calcium [Mass/Vol] 9.1 mg/dL Normal 8.5-10.1 [facility] Comment on above: Performed By: #### F T3, ALT, AST, BMP, TSH, LIPID #### [facility] [address] [place] [address] Dr. Reji Pickett Chloride [Moles/Vol] 105 mmol/L Normal 98-107 [facility] Comment on above: Performed By: #### F T3, ALT, AST, BMP, TSH, LIPID #### [facility] [address] [place] [address] Dr. Reji Pickett CO2 [Moles/Vol] 27.0 mmol/L Normal 21.0-32.0 [facility] Comment on above: Performed By: #### F T3, ALT, AST, BMP, TSH, LIPID #### [facility] [address] [place] [address] Dr. Reji Pickett Creatinine [Mass/Vol] 0.78 mg/dL Normal 0.55-1.02 [facility] Comment on above: Performed By: #### F T3, ALT, AST, BMP, TSH, LIPID #### [facility] [address] [address] [address] Reji Pickett EGFR-AF [place] Normal >=60 [facility] Comment on above: Performed By: #### F T3, ALT, AST, BMP, TSH, LIPID #### [facility] [address] [address] [address] Reji Pickett EGFR-NON AF [place] Normal >=60 [facility] Comment on above: Performed By: #### F T3, ALT, AST, BMP, TSH, LIPID #### [facility] [address] [place] [address] Dr. Reji Pickett Glucose [Mass/Vol] 74 mg/dL Normal 74-106 [facility] Comment on above: Performed By: #### F T3, ALT, AST, BMP, TSH, LIPID #### [facility] [address] [place] [address] Dr. Reji Pickett Potassium [Moles/Vol] 4.1 mmol/L Normal 3.5-5.1 [facility] Comment on above: Performed By: #### F T3, ALT, AST, BMP, TSH, LIPID #### [facility] [address] [place] [address] Dr. Reji Pickett Sodium [Moles/Vol] 142 mmol/L Normal 136-145 [facility] Comment on above: Performed By: #### F T3, ALT, AST, BMP, TSH, LIPID #### [facility] [address] [place] [address] Dr. Reji Pickett Urea nitrogen [Mass/Vol] 15.0 mg/dL Normal 7.0-18.0 [facility] Comment on above: Performed By: #### F T3, ALT, AST, BMP, TSH, LIPID #### [facility] [address] [place] [address] Dr. Reji Pickett Urea nitrogen/Creatinine [Mass ratio] 19.2 mg/mg Normal [facility] Comment on above: Performed By: #### F T3, ALT, AST, BMP, TSH, LIPID #### [facility] [address] [place] [address] Dr. Reji Pickett SGOTon 10-18-2021 AST [Catalytic activity/Vol] 33 U/L Normal 15-37 [facility] Comment on above: Performed By: #### F T3, ALT, AST, BMP, TSH, LIPID #### [facility] [address] [place] [address] Dr. Reji Pickett SGPTon 10-18-2021 ALT [Catalytic activity/Vol] 59 U/L Normal 14-59 [facility] Comment on above: Performed By: #### F T3, ALT, AST, BMP, TSH, LIPID #### [facility] [address] [place] [address] Dr. Reji Pickett TSHon 10-18-2021 TSH 1.079 uIU/mL Normal 0.358-3.74 0 [facility] Comment on above: Performed By: #### F T3, ALT, AST, BMP, TSH, LIPID #### [facility] [address] [place] [address] Dr. Reji Pickett TSH RANGE SEE BELOW Normal [facility] Comment on above: Result Comment: <0.3 4 UIU/ml HYPERTHYROID 0.34-5.60 UIU/ml EUTHYROID >5.60 UIU/ml HYPOTHYROID Performed By: #### F T3, ALT, AST, BMP, TSH, LIPID #### [facility] [address] [place] [address] Dr. Reji Pickett Vital Signs Date Time Vital Sign Value Performing Clinician Facility 04-21-2024 09:00-0500 Body height 161.3 cm Laure Corona COMMUNICATIONS SPECIALIST Work Phone: [facility] 04-21-2024 09:00-0500 Body mass index (BMI) [Ratio] 25.21 kg/m2 Laure Corona COMMUNICATIONS SPECIALIST Work Phone: [facility] 04-21-2024 09:00-0500 Body temperature 98.8 [degF] Laure Aichholz COMMUNICATIONS SPECIALIST Work Phone: [facility] 04-21-2024 09:00-0500 Body weight 65.59 kg Laure Aichholz COMMUNICATIONS SPECIALIST Work Phone: [facility] 04-21-2024 09:00-0500 Diastolic blood pressure 82 mm[Hg] Laure Aichholz COMMUNICATIONS SPECIALIST Work Phone: [facility] 04-21-2024 09:00-0500 Heart rate 67 /min Laure Aichholz COMMUNICATIONS SPECIALIST Work Phone: [facility] 04-21-2024 09:00-0500 Respiratory rate 18 /min Laure Aichholz COMMUNICATIONS SPECIALIST Work Phone: [facility] 04-21-2024 09:00-0500 SaO2% (BldA) [Mass fraction] 96 % Laure Aichholz COMMUNICATIONS SPECIALIST Work Phone: [facility] 04-21-2024 09:00-0500 Systolic blood pressure 122 mm[Hg] Laure Aichholz COMMUNICATIONS SPECIALIST Work Phone: [facility] 01-21-2024 09:22-0400 Body height 161.3 cm Laure Aichholz COMMUNICATIONS SPECIALIST Work Phone: [facility] 01-21-2024 09:22-0400 Body mass index (BMI) [Ratio] 25.04 kg/m2 Laure Aichholz COMMUNICATIONS SPECIALIST Work Phone: [facility] 01-21-2024 09:22-0400 Body temperature 98.71 [degF] Laure Aichholz COMMUNICATIONS SPECIALIST Work Phone: [facility] 01-21-2024 09:22-0400 Body weight 65.14 kg Laure Aichholz COMMUNICATIONS SPECIALIST Work Phone: [facility] 01-21-2024 09:22-0400 Diastolic blood pressure 90 mm[Hg] Laure Aichholz COMMUNICATIONS SPECIALIST Work Phone: [facility] 01-21-2024 09:22-0400 Heart rate 67 /min Laure Aichholz COMMUNICATIONS SPECIALIST Work Phone: [facility] 01-21-2024 09:22-0400 Respiratory rate 18 /min Laure Chloe COMMUNICATIONS SPECIALIST Work Phone: [facility] 01-21-2024 09:22-0400 SaO2% (BldA) [Mass fraction] 95 % Laure Chloe COMMUNICATIONS SPECIALIST Work Phone: [facility] 01-21-2024 09:22-0400 Systolic blood pressure 150 mm[Hg] Laure Jacypremdorothy COMMUNICATIONS SPECIALIST Work Phone: [facility] 04-25-2023 21:50-0500 Body temperature 97.5 [degF] WASHING MACHINE OPERATOR Candelaria Saffle Work Phone: [facility] 04-25-2023 21:50-0500 Diastolic blood pressure 71 mm[Hg] WASHING MACHINE OPERATOR Candelaria Saffle Work Phone: [facility] 04-25-2023 21:50-0500 Heart rate 59 /min WASHING MACHINE OPERATOR Candelaria Saffle Work Phone: [facility] 04-25-2023 21:50-0500 Respiratory rate 20 /min WASHING MACHINE OPERATOR Candelaria Saffle Work Phone: [facility] 04-25-2023 21:50-0500 SaO2% (BldA) [Mass fraction] 95 % WASHING MACHINE OPERATOR Candelaria Saffle Work Phone: [facility] 04-25-2023 21:50-0500 Systolic blood pressure 134 mm[Hg] WASHING MACHINE OPERATOR Candelaria Saffle Work Phone: [facility] 04-25-2023 17:23-0500 Body height 162.56 cm WASHING MACHINE OPERATOR Candelaria Saffle Work Phone: [facility] 04-25-2023 17:23-0500 Body weight 63.4 kg WASHING MACHINE OPERATOR Candelaria Saffle Work Phone: [facility] Encounters Encounter Date Encounter Type Care Provider Facility Start: 05-27-2024 End: 05-27-2024 Clinisync Result Encounter Laure Louiepauline COMMUNICATIONS SPECIALIST Work Phone: [facility] Unsolicited Start: 05-27-2024 End: 05-27-2024 Clinisync Result Encounter Laure Chloe COMMUNICATIONS SPECIALIST Work Phone: [facility] Unsolicited Start: 04-21-2024 End: 04-21-2024 Bamboo flowsheet Laure Chloe COMMUNICATIONS SPECIALIST Work Phone: [facility] Start: 04-21-2024 End: 04-21-2024 Bamboo flowsheet Laure Chloe COMMUNICATIONS SPECIALIST Work Phone: [facility] Start: 04-21-2024 End: 04-21-2024 Office outpatient visit 25 minutes Laure Chloe COMMUNICATIONS SPECIALIST Work Phone: [facility] Comment on above: Primary hypertension (CMS/HCC) (Primary Dx); Hypothyroidism, unspecified type (CMS/HCC); Mixed hyperlipidemia (CMS/HCC); TIMOTEO (generalized anxiety disorder) (CMS/HCC); Encounter for screening mammogram for malignant neoplasm of breast; Needs flu shot; Hypothyroidism, unspecified (CMS/HCC); Hyperlipidemia, unspecified (CMS/HCC) Start: 04-21-2024 End: 04-21-2024 ambulatory LAURE CHLOE Not Available Start: 01-21-2024 End: 01-21-2024 Bamboo flowsheet Laure Chloe COMMUNICATIONS SPECIALIST Work Phone: [facility] Start: 01-21-2024 End: 01-21-2024 Bamboo flowsheet Laure Chloe COMMUNICATIONS SPECIALIST Work Phone: [facility] Start: 01-21-2024 End: 01-21-2024 Office outpatient visit 25 minutes Laurenatalie Corona COMMUNICATIONS SPECIALIST Work Phone: [facility] Comment on above: Primary hypertension (CMS/HCC) (Primary Dx); BMI 25.0-25.9,adult; TIMOTEO (generalized anxiety disorder) (CMS/FORMERLY [facility]); Viral upper respiratory tract infection Start: 01-21-2024 End: 01-21-2024 ambulatory LAURE AICHHOLZ Not Available Start: 12-18-2023 End: 12-18-2023 ambulatory LAURE AICHHOLZ Not Available Start: 11-13-2023 End: 11-13-2023 ambulatory SHAIKH ADRIANA [...] Department Unsolicited Start: 06-24-2023 Bamboo flowsheet Yemi Negreteink REHABILITATION SERVICES MANAGER [facility] Start: 06-24-2023 Bamboo flowsheet Yemi Brink REHABILITATION SERVICES MANAGER [facility] Start: 06-24-2023 End: 06-24-2023 ambulatory Yemi Stern REHABILITATION SERVICES MANAGER [facility] Comment on above: Radiculopathy affect ing upper extremity (Primary Dx); Lateral epicondylitis of left elbow Start: 06-20-2023 End: 06-20-2023 ambulatory YEMI STERN Not Available Start: 06-18-2023 End: 06-18-2023 ambulatory YEMI STERN Not Available Start: 06-17-2023 End: 06-17-2023 ambulatory LAURE CORONA Not Available Start: 06-17-2023 Patient encounter procedure Yemi Stern REHABILITATION SERVICES MANAGER [facility] Start: 06-13-2023 End: 06-13-2023 ambulatory Blanca Pollard REHABILITATION SERVICES MANAGER [facility] Comment on above: Radiculopathy affect ing upper extremity (Primary Dx); Lateral epicondylitis of left elbow Start: 06-11-2023 End: 06-11-2023 ambulatory BAHKTI PRASAD Not Available Start: 05-20-2023 End: 05-20-2023 ambulatory LAURE CORONA Not Available Start: 05-01-2023 End: 05-01-2023 ambulatory LAURE CHLOE Not Available Start: 04-25-2023 End: 04-26-2023 Emergency department patient visit Candelaria Falk Facility:[facility] Start: 04-25-2023 End: 04-25-2023 Emergency department patient visit CECILY Falk Work Phone: [facility] Work Phone: Start: 07-27-2022 End: 07-27-[address] OLU JOHNSON Facility:[facility] Start: 10-31-2021 End: 11-01-[address] OLU JOHNSON Facility:[facility] Start: 10-18-2021 End: 10-19-[address] OLU JOHNSON Facility:[facility] Procedures Date Procedure Procedure Detail Performing Clinician Start: 05-27-2024 ALL CBC WITH AUTO DIFF Lauer Aicpauline COMMUNICATIONS SPECIALIST Work Phone: Start: 06-25-2023 ALL CBC WITH AUTO DIFF Generic External Data Provider Start: 05-22-2023 Mammography Blanca chirinos REHABILITATION SERVICES MANAGER Start: 04-25-2023 CT of head without contrast WASHING MACHINE OPERATOR Candelaria Falk Work Phone: Start: 04-25-2023 Plain chest X-ray WASHING MACHINE OPERATOR Candelaria Saffle Work Phone: Start: 04-25-2023 SARS-CoV-2, Influenz a & RSV (PCR) CECILY Falk Work Phone: Start: 12-07-2019 Colonoscopy Blanca chirinos REHABILITATION SERVICES MANAGER Plan of Treatment Date Care Activity Detail Author Start: 12-06-2029 Screening for malign ant neoplasm of colon [facility] Start: 06-23-2024 End: 06-23-2024 Patient encounter procedure 06/23/2024 10:30 AM EST Office Visit [facility] [address] [place] [address] Laure Corona NP [address] [place] [id number] [facility] Start: 06-17-2024 Medicare Annual Well ness (AWV) Medicare Annual Wellness (AWV) [facility] Start: 05-22-2024 End: 06-22-2025 MG Breast - bilateral Screening Bilateral screening mammogram Imaging Routine Encounter for screening mammogram for malignant neoplasm of breast Expected: 05/22/2024 (Approximate), Expires: 06/22/2025 [facility] Comment on above: Expected: 05/22/2024 (Approximate), Expires: 06/22/2025 Start: 05-22-2024 Screening for malign ant neoplasm of breast Mammogram [facility] Start: 04-21-2024 End: 04-21-2025 CBC W Auto Differential panel - Blood CBC and differential Lab Routine Hypothyroidism, unspecified type (CMS/HCC) Expected: 04/21/2024 (Approximate), Expires: 04/21/2025 [facility] Comment on above: Expected: 04/21/2024 (Approximate), Expires: 04/21/2025 Start: 04-21-2024 End: 04-21-2025 Comprehensive metabolic 2000 panel - Serum or Plasma Comprehensive metabolic panel Lab Routine Primary hypertension (CMS/HCC) Mixed hyperlipidemia (CMS/HCC) Expected: 04/21/2024 (Approximate), Expires: 04/21/2025 [facility] Comment on above: Expected: 04/21/2024 (Approximate), Expires: 04/21/2025 Start: 04-21-2024 End: 04-21-2025 Lipid 1996 panel - Serum or Plasma Lipid panel Lab Routine Mixed hyperlipidemia (CMS/HCC) Expected: 04/21/2024 (Approximate), Expires: 04/21/2025 [facility] Work Phone: Comment on above: Expected: 04/21/2024 (Approximate), Expires: 04/21/2025 Start: 04-21-2024 End: 04-21-2025 Microalbumin/Creatinine panel in random Urine Microalbumin / creatinine, urine ratio Lab Routine Primary hypertension (CMS/HCC) Expected: 04/21/2024 (Approximate), Expires: 04/21/2025 [facility] Comment on above: Expected: 04/21/2024 (Approximate), Expires: 04/21/2025 Start: 04-21-2024 End: 04-21-2025 Thyrotropin [Units/volume] in Serum or Plasma TSH Lab Routine Mixed hyperlipidemia (CMS/HCC) Expected: 04/21/2024 (Approximate), Expires: 04/21/2025 [facility] Comment on above: Expected: 04/21/2024 (Approximate), Expires: 04/21/2025 Start: 04-21-2024 End: 04-21-2025 Thyroxine (T4) free [Mass/volume] in Serum or Plasma T4, free Lab Routine Mixed hyperlipidemia (CMS/HCC) Expected: 04/21/2024 (Approximate), Expires: 04/21/2025 [facility] Comment on above: Expected: 04/21/2024 (Approximate), Expires: 04/21/2025 Start: 04-21-2024 End: 04-21-2025 Urinalysis complete panel - Urine Urinalysis with reflex microscopic (clean catch) Lab Routine Primary hypertension (CMS/HCC) Expected: 04/21/2024 (Approximate), Expires: 04/21/2025 [facility] Comment on above: Expected: 04/21/2024 (Approximate), Expires: 04/21/2025 Start: 04-21-2024 End: 04-21-2024 Patient encounter procedure [facility] Comment on above: Primary hypertension (CMS/HCC) (Primary Dx); Hypothyroidism, unspecified type (CMS/HCC); Mixed hyperlipidemia (CMS/HCC); TIMOTEO (generalized anxiety disorder) (CMS/HCC); Encounter for screening mammogram for malignant neoplasm of breast Start: 01-21-2024 End: 01-21-2024 Patient encounter procedure 01/21/2024 9:20 AM EDT Office Visit [facility] [address] [place] [address] Laure Corona, COMMUNICATIONS SPECIALIST [address] [place] [address] Arrived [facility] Comment on above: Arrived Start: 07-10-2023 End: 07-10-2023 Patient encounter procedure 07/10/2023 9:00 AM EST Office Visit [facility] [address] [place] [address] Laure Corona, COMMUNICATIONS SPECIALIST [address] [place] [address] [facility] Start: 06-26-2023 End: 06-26-2023 ambulatory [facility] Comment on above: Arrived Start: 06-24-2023 End: 06-24-2023 ambulatory [facility] Comment on above: Arrived Start: 06-20-2023 End: 06-20-2023 ambulatory 06/20/2023 11:30 AM EST Treatment [facility] [address] [facility] [address] [place] [address] eYmi Stern, REHABILITATION SERVICES MANAGER [facility] Start: 06-18-2023 End: 06-18-2023 ambulatory 06/18/2023 11:30 AM EST Treatment [facility] [address] [place] [place] [address] Yemi Stern, REHABILITATION SERVICES MANAGER [facility] Start: 06-17-2023 End: 06-17-2023 Patient encounter procedure 06/17/2023 4:30 PM EST Office Visit [facility] [address] [place] [id number] Laure Corona, COMMUNICATIONS SPECIALIST [address] [place] [phone] [facility] Start: 10-26-2022 Screening for malign ant neoplasm of colon FIT-DNA [facility] Start: 1955 Medicare Annual Well ness (AWV) Medicare Annual Wellness (AWV) [facility] Start: 1955 Screening for malign ant neoplasm of colon [facility] Patient Education Radiculopathy [facility] Work Phone: Patient referral [facility] Work Phone: Immunizations Immunization Date Immunization Notes Care Provider [facility] 04-21-2024 Influenza, injectabl e, Madin [place] Canine Kidney, preservative free, quadrivalent Laure Aichholz COMMUNICATIONS SPECIALIST Work Phone: [facility] 02-23-2021 Influenza, High-dose Seasonal, Quadrivalent, Preservative Free Laure Aichholz COMMUNICATIONS SPECIALIST Work Phone: [facility] 02-26-2018 influenza, injectabl e, quadrivalent, preservative free Laure Aichholz COMMUNICATIONS SPECIALIST Work Phone: [facility] 11-06-2017 zoster vaccine recombinant Laure Aichholz COMMUNICATIONS SPECIALIST Work Phone: [facility] 09-04-2017 zoster vaccine recombinant Laure Aichholz COMMUNICATIONS SPECIALIST Work Phone: [facility] 02-14-2017 influenza, seasonal, injectable Laure Aichholz COMMUNICATIONS SPECIALIST Work Phone: [facility] 03-23-2016 influenza, seasonal, injectable, preservative free Laure Aichholz COMMUNICATIONS SPECIALIST Work Phone: [facility] Payers Date Payer Category Payer Private Health Insurance [id number] 2023 Self-pay 2019 Medicare [id number] 1959 Medicare [id number] 1959 Private Health Insurance CLI [id number] 1954 Unknown [id number] 2.16.840.1.763649.3.579.2. 593 1954 Unknown [id number] 2.16.840.1.818906.3.579.2. 593 1954 Unknown [id number] 2.16.840.1.937625.3.579.2. 593 1954 Unknown [id number] 2.16.840.1.862554.3.579.2. 1258 1954 Unknown [id number] 2.16.840.1.957965.3.579.2. 1258 1954 Unknown [id number] 2.16.840.1.614907.3.579.2. 1258 1954 Unknown [id number] 2.16.840.1.120824.3.579.2. 1258 1954 Unknown [id number] 2.16.840.1.298173.3.579.2. 1258 1954 Unknown [id number] 2.16.840.1.243949.3.579.2. 1258 1954 Unknown [id number] 2.16.840.1.032099.3.579.2. 1258 1954 Unknown [id number] 2.16.840.1.967194.3.579.2. 1258 1954 Unknown [id number] 2.16.840.1.318261.3.579.2. 1258 1954 Unknown [id number] 2.16.840.1.360806.3.579.2. 1258 1954 Unknown [id number] 2.16.840.1.470195.3.579.2. 1258 1954 Unknown [id number] 2.16.840.1.042889.3.579.2. 1258 1954 Unknown [id number] 2.16.840.1.594399.3.579.2. 1258 1954 Unknown [id number] 2.16.840.1.918274.3.579.2. 1258 1954 Unknown [id number] 2.16.840.1.041569.3.579.2. 1258 1954 Unknown [id number] 2.16.840.1.285350.3.579.2. 1258 1954 Unknown [id number] 2.16.840.1.169485.3.579.2. 1258 1954 Unknown [id number] 2.16.840.1.782310.3.579.2. 1258 1954 Unknown [id number] 2.16.840.1.965536.3.579.2. 1259 Unknown [facility] [id number] Unknown [id number] 2.16.840.1.779331.3.579.2. 531 Social History Date Type Detail Facility Start: 04-25-2023 End: 11-13-2023 Tobacco smoking status [facility] Ex-smoker (finding) [facility] Start: 1955 Sex Assigned At Female [facility] End: 05-13-2015 History of tobacco use Current smoker [facility] End: 05-13-2015 History of tobacco use Cigarette Smoker [facility] Start: 05-20-2023 End: 11-13-2023 Tobacco use and exposure Smokeless tobacco non-user [facility] Start: 05-20-2023 End: 06-17-2023 Alcohol intake Current drinker of alcohol (finding) [facility] Start: 05-13-2023 End: 05-20-2023 Alcohol intake [facility] Start: 05-13-2023 End: 06-17-2023 Humiliation, Afraid, Rape, and Kick questionnaire [HARK] [facility] Within the last year , have you been afraid of your partner or ex-partner? No [facility] Frequency of Communication with Friends and Family Not on file [facility] Do you belong to any clubs or organizations such as latter day groups, unions, fraVirgance or athletic groups, or school groups? Yes [...] Only a little [facility] History of tobacco use Passive smoker [facility] Start: 01-21-2024 End: 04-21-2024 Alcoholic beverage intake Lifetime non-drinker (finding) [facility] Clinical Notes 06-13-2023 to 04-21-2024 Laure Corona NP - 04/21/2024 9:16 AM ANNALEE KINCAID 04/21/2024 9:00 AM Liz Corona NP - 04/21/2024 9:00 AM Liz Corona NP - 04/21/2024 6:28 AM ESTPatient Instructions Note Date & Type Note Facility 04-21-2024 History of Present illness Narrative Associated Problem(s): Needs flu shot Declines high dose d/t concerns about not tolerating it as sister had difficulty with this Ok for regular dose flu shot Pt cut her dosage on her blood pressure back to 20mg (lisinopril) due to making her dizzy Since middle january, pt states the dizziness has subsided she has had a few dizzy spells if she has stood up to quickly Pt states zoloft has been helping with anxiety Pt blood pressure today before appt was 113/75 she states that has been her avg Images from the original note were not included. Edilma Leonardo is a 68 y.o. female presents with chief complaint of Hypertension HPI: Hypertension This is a chronic problem. The current episode started more than 1 year ago. The problem has been gradually improving since onset. The problem is controlled. Associated symptoms include anxiety. Pertinent negatives include no blurred vision, chest pain, headaches, orthopnea, palpitations, peripheral edema or shortness of breath. There are no associated agents to hypertension. Past treatments include RADHA inhibitors and diuretics. The current treatment provides significant improvement. There are no compliance problems. Anxiety Presents for follow-up visit. Symptoms include irritability, muscle tension and nervous/anxious behavior. Patient reports no chest pain, confusion, decreased concentration, dizziness, excessive worry, impotence, insomnia, nausea, palpitations, shortness of breath or suicidal ideas. Symptoms occur most days. The quality of sleep is good. Compliance with medications is 76-100%. SUBJECTIVE: MEDICATIONS: Current Outpatient Medications Medication Instructions hydroCHLOROthiazide (HYDRODIURIL) 25 mg, Oral, Daily levothyroxine (SYNTHROID, LEVOXYL) 25 mcg, Oral, Daily before breakfast lisinopril 40 mg, Oral, Daily sertraline (ZOLOFT) 50 mg, Oral, Daily simvastatin (ZOCOR) 40 mg, Oral, Nightly ALLERGIES: Allergies Allergen Reactions Prednisone High blood pressure Aleve [Naproxen] Swelling and Rash Cephalexin Dizziness and Rash Penicillins Rash REVIEW OF SYMPTOMS: Review of Systems Constitutional: Positive for irritability. Negative for appetite change, chills and fever. HENT: Negative for congestion, ear pain and sore throat. Eyes: Negative for blurred vision, pain, discharge, redness and visual disturbance. Respiratory: Negative for cough, shortness of breath and wheezing. Cardiovascular: Negative for chest pain, palpitations, orthopnea and leg swelling. Gastrointestinal: Negative for abdominal pain, blood in stool, constipation, diarrhea (intermittent), nausea and vomiting. Genitourinary: Negative for difficulty urinating, dysuria, frequency and impotence. Musculoskeletal: Negative for arthralgias, back pain, joint swelling and myalgias. Skin: Negative for rash and wound. Neurological: Negative for dizziness, tremors, seizures, syncope and headaches. Psychiatric/Behavioral: Negative for behavioral problems, confusion, decreased concentration, self-injury and suicidal ideas. The patient is nervous/anxious. The patient does not have insomnia. Hematological: Does not bruise/bleed easily. Endocrine: Negative for polydipsia, polyphagia and polyuria. Allergic/Immunologic: Negative for environmental allergies and food allergies. PAST MEDICAL HISTORY Past Medical History: Diagnosis Date Lateral epicondylitis of left elbow 05/01/2023 Radiculopathy affecting upper extremity 05/01/2023 Past Surgical History: Procedure Laterality Date BLEPHAROPLASTY Bilateral 06/27/2023 CATARACT EXTRACTION Bilateral 2022 family history includes COPD in her mother; HTN in her mother; Stomach cancer in her father. OBJECTIVE: Visit Vitals BP 122/82 (BP Location: Left arm, Patient Position: Sitting, BP Cuff Size: Adult long) Pulse 67 Temp 98.8 F (Temporal) Resp 18 Ht 5' 3.5 Wt 144 lb 9.6 oz SpO2 96% BMI 25.21 kg/m Smoking Status Former BSA 1.71 m Physical Exam Vitals and nursing note reviewed. Constitutional: General: She is not in acute distress. Appearance: Normal appearance. HENT: Head: Normocephalic and atraumatic. Right Ear: External ear normal. Left Ear: External ear normal. Nose: Nose normal. Mouth/Throat: Mouth: Mucous membranes are moist. Eyes: Extraocular Movements: Extraocular movements intact. Conjunctiva/sclera: Conjunctivae normal. Neck: Vascular: No carotid bruit. Cardiovascular: Rate and Rhythm: Normal rate and regular rhythm. Pulses: Normal pulses. Heart sounds: Normal heart sounds. Pulmonary: Effort: Pulmonary effort is normal. Breath sounds: Normal breath sounds. Abdominal: General: Bowel sounds are normal. There is no distension. Palpations: Abdomen is soft. There is no mass. Tenderness: There is no abdominal tenderness. Musculoskeletal: General: Normal range of motion. Cervical back: Normal range of motion and neck supple. Right lower leg: No edema. Left lower leg: No edema. Lymphadenopathy: Cervical: No cervical adenopathy. Skin: General: Skin is warm and dry. Capillary Refill: Capillary refill takes 2 to 3 seconds. Findings: No rash. Neurological: General: No focal deficit present. Mental Status: She is alert and oriented to person, place, and time. Psychiatric: Mood and Affect: Mood normal. Behavior: Behavior normal. Thought Content: Thought content normal. Judgment: Judgment normal. ASSESSMENT AND PLAN: No follow-ups on file. Problem List Items Addressed This Visit Hyperlipidemia (CMS/HCC) Current med is simvastatin at 40mg daily Check labs yearly and prn dose changes Recommend low fat diet Relevant Orders Lipid panel Comprehensive metabolic panel TSH T4, free Hypothyroidism (CMS/HCC) Current med is levo at 25mcg Check labs yearly and prn dose changes Relevant Orders CBC and differential Encounter for screening mammogram for malignant neoplasm of breast Relevant Orders Bilateral screening mammogram Primary hypertension (CMS/HCC) - Primary Please check blood pressure daily and record DASH diet Limit caffeine Take medication as directed Contact office if chest pain, pressure, dizziness, shortness of breath, swelling legs Recommend slow position changes Current meds: lisinopril and hydrochlorothiazide Home reads 110's since cutting dose down to 20mg W 40mg pressures were 90's SBP Relevant Medications lisinopril 20 MG tablet hydroCHLOROthiazide (HYDRODiuril) 25 MG tablet Other Relevant Orders Comprehensive metabolic panel Urinalysis with reflex microscopic (clean catch) Microalbumin / creatinine, urine ratio TIMOTEO (generalized anxiety disorder) (CMS/HCC) Current med is sertraline at 50mg daily Relevant Medications sertraline (Zoloft) 50 MG tablet Needs flu shot Declines high dose d/t concerns about not tolerating it as sister had difficulty with this Ok for regular dose flu shot Relevant Orders Flu vaccine, MDCK, quadrivalent, PF (MST420) (Flucelvax single dose syringe) Other Visit Diagnoses Hypothyroidism, unspecified (CMS/HCC) Relevant Medications levothyroxine (Synthroid, Levoxyl) 25 MCG tablet Other Relevant Orders CBC and differential Hyperlipidemia, unspecified (CMS/HCC) Relevant Medications simvastatin (Zocor) 40 MG tablet Other Relevant Orders Lipid panel Comprehensive metabolic panel TSH T4, free Associated Problem(s): TIMOTEO (generalized anxiety disorder) (CMS/HCC) Current med is sertraline at 50mg daily Associated Problem(s): Hyperlipidemia (CMS/HCC) Current med is simvastatin at 40mg daily Check labs yearly and prn dose changes Recommend low fat diet Associated Problem(s): Hypothyroidism (CMS/HCC) Current med is levo at 25mcg Check labs yearly and prn dose changes Associated Problem(s): Primary hypertension (CMS/HCC) Please check blood pressure daily and record DASH diet Limit caffeine Take medication as directed Contact office if chest pain, pressure, dizziness, shortness of breath, swelling legs Recommend slow position changes Current meds: lisinopril and hydrochlorothiazide Home reads 110's since cutting dose down to 20mg W 40mg pressures were 90's SBP documented in this encounter [facility] 04-21-2024 Instructions Laure Corona NP - 04/21/2024 9:00 AM EST Labs/mammogram : due in mid May 2024 documented in this encounter [facility] 01-21-2024 History of Present illness Narrative Associated Problem(s): Viral upper respiratory tract infection Mild symptoms, started 2 days ago Recommend treating sxs: antihistamine, throat lozenges, warm salt water gargles, rest, fluids Recommend at home COVID testing as well Will contact office if worsening, or not improving or if positive test NAD Associated Problem(s): TIMOTEO (generalized anxiety disorder) (CMS/HCC) Continue current dose of SSRI Fu in 3 months Associated Problem(s): Primary hypertension (CMS/HCC) Home reads primarily in the 110/70 range Occ dizziness with position changes Recommend 20mg BID of lisinopril and then the 25 hydrochlorothiazide Elevated in the office, suspect white coat hypertension as well Fu in 3 months 160/100 Pt states she might be coming down with something she has a scratchy throat, headache, drainage, and nausea. Pt states she just does not feel right. Images from the original note were not included. Edilma Leonardo is a 68 y.o. female presents with chief complaint of No chief complaint on file. HPI: Early URI symptoms: no fever, +runny nose and scratchy throat, no NVD, no ear pain or body aches Hypertension This is a chronic problem. The current episode started more than 1 month ago. The problem has been gradually improving since onset. The problem is controlled. Associated symptoms include anxiety and malaise/fatigue. Pertinent negatives include no chest pain, headaches, palpitations, peripheral edema or shortness of breath. There are no associated agents to hypertension. Risk factors for coronary artery disease include dyslipidemia and post-menopausal state. Past treatments include RADHA inhibitors and diuretics. The current treatment provides significant improvement. There are no compliance problems. Anxiety Presents for follow-up visit. Symptoms include dizziness, excessive worry and irritability. Patient reports no chest pain, confusion, decreased concentration, depressed mood, nausea, nervous/anxious behavior, palpitations, shortness of breath or suicidal ideas. Symptoms occur most days. The severity of symptoms is mild. The quality of sleep is good. Compliance with medications is 76-100%. SUBJECTIVE: MEDICATIONS: Current Outpatient Medications Medication Instructions hydroCHLOROthiazide (HYDRODIURIL) 25 mg, Oral, Daily levothyroxine (SYNTHROID, LEVOXYL) 25 mcg, Oral, Daily before breakfast lisinopril 40 mg, Oral, Daily sertraline (ZOLOFT) 50 mg, Oral, Daily simvastatin (ZOCOR) 40 mg, Oral, Nightly ALLERGIES: Allergies Allergen Reactions Prednisone High blood pressure Aleve [Naproxen] Swelling and Rash Cephalexin Dizziness and Rash Penicillins Rash REVIEW OF SYMPTOMS: Review of Systems Constitutional: Positive for irritability and malaise/fatigue. Negative for appetite change, chills and fever. HENT: Positive for sinus pressure and sore throat. Negative for congestion and ear pain. Eyes: Negative for pain, discharge, redness and visual disturbance. Respiratory: Negative for cough, shortness of breath and wheezing. Cardiovascular: Negative for chest pain, palpitations and leg swelling. Gastrointestinal: Negative for abdominal pain, blood in stool, constipation, diarrhea, nausea and vomiting. Genitourinary: Negative for difficulty urinating, dysuria and frequency. Musculoskeletal: Negative for arthralgias, back pain, joint swelling and myalgias. Skin: Negative for rash and wound. Neurological: Positive for dizziness. Negative for tremors, seizures, syncope and headaches. Psychiatric/Behavioral: Negative for behavioral problems, confusion, decreased concentration, self-injury and suicidal ideas. The patient is not nervous/anxious. Hematological: Does not bruise/bleed easily. Endocrine: Negative for polydipsia, polyphagia and polyuria. Allergic/Immunologic: Negative for environmental allergies and food allergies. PAST MEDICAL HISTORY Past Medical History: Diagnosis Date Lateral epicondylitis of left elbow 05/01/2023 Radiculopathy affecting upper extremity 05/01/2023 Past Surgical History: Procedure Laterality Date BLEPHAROPLASTY Bilateral 06/27/2023 CATARACT EXTRACTION Bilateral 2022 family history includes COPD in her mother; HTN in her mother; Stomach cancer in her father. OBJECTIVE: Visit Vitals BP 150/90 (BP Location: Left arm, Patient Position: Sitting, BP Cuff Size: Adult long) Pulse 67 Temp 98.7 F (Temporal) Resp 18 Ht 5' 3.5 Wt 143 lb 9.6 oz SpO2 95% BMI 25.04 kg/m Smoking Status Former BSA 1.71 m Physical Exam Vitals and nursing note reviewed. Constitutional: General: She is not in acute distress. Appearance: Normal appearance. HENT: Head: Normocephalic and atraumatic. Right Ear: Tympanic membrane, ear canal and external ear normal. Left Ear: Tympanic membrane, ear canal and external ear normal. Nose: Congestion and rhinorrhea present. Mouth/Throat: Mouth: Mucous membranes are moist. Pharynx: No oropharyngeal exudate or posterior oropharyngeal erythema. Eyes: Extraocular Movements: Extraocular movements intact. Conjunctiva/sclera: Conjunctivae normal. Cardiovascular: Rate and Rhythm: Normal rate and regular rhythm. Pulses: Normal pulses. Heart sounds: Normal heart sounds. Pulmonary: Effort: Pulmonary effort is normal. Breath sounds: Normal breath sounds. Abdominal: General: Bowel sounds are normal. There is no distension. Palpations: Abdomen is soft. There is no mass. Tenderness: There is no abdominal tenderness. Musculoskeletal: General: Normal range of motion. Cervical back: Normal range of motion and neck supple. Right lower leg: No edema. Left lower leg: No edema. Lymphadenopathy: Cervical: No cervical adenopathy. Skin: General: Skin is warm and dry. Capillary Refill: Capillary refill takes 2 to 3 seconds. Findings: No rash. Neurological: General: No focal deficit present. Mental Status: She is alert and oriented to person, place, and time. Psychiatric: Mood and Affect: Mood normal. Behavior: Behavior normal. Thought Content: Thought content normal. Judgment: Judgment normal. ASSESSMENT AND PLAN: No follow-ups on file. Problem List Items Addressed This Visit BMI 25.0-25.9,adult Primary hypertension (CMS/HCC) - Primary Home reads primarily in the 110/70 range Occ dizziness with position changes Recommend 20mg BID of lisinopril and then the 25 hydrochlorothiazide Elevated in the office, suspect white coat hypertension as well Fu in 3 months TIMOTEO (generalized anxiety disorder) ([facility]) Continue current dose of SSRI Fu in 3 months Viral upper respiratory tract infection Mild symptoms, started 2 days ago Recommend treating sxs: antihistamine, throat lozenges, warm salt water gargles, rest, fluids Recommend at home COVID testing as well Will contact office if worsening, or not improving or if positive test NAD documented in this encounter [facility] 06-13-2023 History of Present illness Narrative Physical Therapy Physical Therapy Treatment [...] Physician Signature: Date: documented in this encounter [facility] Evaluation note No assessment inform ation available [facility] Work Phone: Evaluation note Diagnosis Radiculopathy affecting upper extremity- Primary Lateral epicondylitis of left elbow documented in this encounter [facility] HealthcareEvaluation note* Diagnosis Radiculopathy affecting upper extremity- Primary Lateral epicondylitis of left elbow documented in this encounter [facility] Healthcare[facility] note* Diagnosis Radiculopathy affecting upper extremity- Primary Lateral epicondylitis of left elbow documented in this encounter [facility] note* Diagnosis Primary hypertension (CMS/HCC)- Primary Unspecified essential hypertension Lateral epicondylitis of left elbow Radiculopathy affecting upper extremity Radiculopathy affecting upper extremity- Primary Mixed hyperlipidemia (CMS/HCC) Mixed hyperlipidemia Hypothyroidism, unspecified type (CMS/HCC) Primary hypertension (CMS/HCC) Unspecified essential hypertension Encounter for screening mammogram for malignant neoplasm of breast Lateral epicondylitis of left elbow Encounter for Medicare annual wellness exam- Primary BMI 25.0-25.9,adult Radiculopathy affecting upper extremity Primary hypertension (CMS/HCC) Unspecified essential hypertension Primary hypertension (CMS/HCC)- Primary Unspecified essential hypertension Radiculopathy affecting upper extremity BMI 25.0-25.9,adult Acute pain of left shoulder URI, acute Acute upper respiratory infections of unspecified site Primary hypertension (CMS/HCC) Unspecified essential hypertension Primary hypertension (CMS/HCC)- Primary Unspecified essential hypertension Primary hypertension (CMS/HCC)- Primary Unspecified essential hypertension TIMOTEO (generalized anxiety disorder) (CMS/HCC) Generalized anxiety disorder Primary hypertension (CMS/HCC)- Primary Unspecified essential hypertension TIMOTEO (generalized anxiety disorder) (CMS/HCC) Generalized anxiety disorder Primary hypertension (CMS/HCC) Unspecified essential hypertension TIMOTEO (generalized anxiety disorder) (CMS/HCC) Generalized anxiety disorder Primary hypertension (CMS/HCC)- Primary Unspecified essential hypertension BMI 25.0-25.9,adult TIMOTEO (generalized anxiety disorder) (CMS/HCC) Generalized anxiety disorder Viral upper respiratory tract infection Acute upper respiratory infections of unspecified site Primary hypertension (CMS/HCC)- Primary Unspecified essential hypertension Hypothyroidism, unspecified type (CMS/HCC) Mixed hyperlipidemia (CMS/HCC) Mixed hyperlipidemia TIMOTEO (generalized anxiety disorder) (CMS/HCC) Generalized anxiety disorder Encounter for screening mammogram for malignant neoplasm of breast Needs flu shot Need for prophylactic vaccination and inoculation against influenza Hyperlipidemia, unspecified (CMS/[facility]) documented in this encounter [facility] HealthcareEvaluation note* Diagnosis Primary hypertension ([facility])- Primary Unspecified essential hypertension BMI 25.0-25.9,adult TIMOTEO (generalized anxiety disorder) ([facility]) Generalized anxiety disorder Viral upper respiratory tract infection Acute upper respiratory infections of unspecified site documented in this encounter [facility] Discharge instructions Additional Instructions Take steroids as [...] fevers, chills, unsteady gait or any [facility] Phone: [facility] Narrative* Consultation (Routine) - Authorized Specialty Diagnoses / Procedures Referred By Tina vora Referred To Contact Physical Therapy Diagnoses Radiculopathy affecting upper extremity Lateral epicondylitis of left elbow Procedures [place] OFFICE/OUTPATIENT NEW HIGH MDM 60 MINUTES Laure Corona NP [address] [place] [address] Bhakti Prasad, PT [address] [address] Referral ID Status Reason Start Date Expiration Date Visits Requested Visits Authorized [id number] Authorized Consult and Treat 05/20/2023 11/16/2023 10 10 [facility] for visit Narrative* Consultation (Routine) - Pending Review Specialty Diagnoses / Procedures Referred By Tina vora Referred To Contact Physical Therapy Diagnoses Radiculopathy affecting upper extremity Lateral epicondylitis of left elbow Procedures [place] OFFICE/OUTPATIENT NEW HIGH MDM 60 MINUTES Laure Corona NP [address] [place] [address] Bhakti Prasad, PT [address] [facility] [address] [place] [address] Referral ID Status Reason Start Date Expiration Date Visits Requested Visits Authorized [id number] Pending Review Consult and Treat 05/20/2023 11/16/2023 [...] and content) DATE CREATED AUTHOR 07/31/2022 [facility] DATE CREATED AUTHOR AUTHOR'S ORGANIZ ATION 05/03/2023 [facility] DATE CREATED AUTHOR AUTHOR'S ORGANIZ ATION 04/24/2024 [facility] Care Teams (unrecognized sec tion and content) Team Status: Active Member Role Status Dates Olu Johnson MD Primary Care Provider Active Team Status: Inactive Member Role Status Dates Candelaria Falk APRN Emergency Provider Active Olu Johnson MD Primary Care Provider Active Braid Pattern Setter Relationship Specialty Start Date End Date Olu Johnson MD [address] [place] [phone] PCP - General Family Medicine 05/01/23 Laure Corona NP [address] [place] [address] Nurse Practitioner Family Medicine 05/01/23 Braid Pattern Setter Relationship Specialty Start Date End Date Olu Johnson MD [address] [place] [address] PCP - General Family Medicine 05/01/23 Laure Corona NP [address] [place] [address] Nurse Practitioner Family Medicine 05/01/23 Braid Pattern Setter Relationship Specialty Start Date End Date Olu Johnson MD [address] [place] [address] PCP - General Family Medicine 05/01/23 Laure Corona NP [address] [place] [address] Nurse Practitioner Family Medicine 05/01/23 Braid Pattern Setter Relationship Specialty Start Date End Date Olu Johnson MD [address] [place] [phone] PCP - General Family Medicine 05/01/23 Laure Corona NP [address] [place] [address] Nurse Practitioner Family Medicine 05/01/23 Braid Pattern Setter Relationship Specialty Start Date End Date Olu Johnson MD [address] [place] [address] PCP - General Family Medicine 05/01/23 Laure Corona NP [address] [place] [address] Nurse Practitioner Family Medicine 05/01/23 Braid Pattern Setter Relationship Specialty Start Date End Date Olu Johnson MD [address] [place] [address] PCP - General Family Medicine 07/10/23 Laure Corona NP [address] [place] [address] Nurse Practitioner Family Medicine 05/01/23 Laure Corona NP [address] [place] [address] Nurse Practitioner Family Medicine 07/10/23 Braid Pattern Setter Relationship Specialty Start Date End Date Olu Johnson MD [address] [place] [address] PCP - General Family Medicine 07/10/23 Laure Corona NP [address] [place] [address] Nurse Practitioner Family Medicine 05/01/23 Laure Corona NP [address] [place] [address] Nurse Practitioner Family Medicine 07/10/23 Braid Pattern Setter Relationship Specialty Start Date End Date Olu Johnson MD [address] [place] [address] PCP - General Family Medicine 07/10/23 Laure Corona NP [address] [place] [address] Nurse Practitioner Family Medicine 05/01/23 Laure Corona NP [address] [place] [address] Nurse Practitioner Family Medicine 07/10/23 Braid Pattern Setter Relationship Specialty Start Date End Date Olu Johnson MD [address] [place] [phone] PCP - General Family Medicine 07/10/23 Laure Corona NP [address] [place] [phone] Nurse Practitioner Family Medicine 05/01/23 Laure Corona NP [address] [place] [phone] Nurse Practitioner Family Medicine 07/10/23 Braid Pattern Setter Relationship Specialty Start Date End Date Olu Johnson MD [address] [place] [phone] PCP - General Family Medicine 07/10/23 Laure Corona NP [address] [place] [address] Nurse Practitioner Family Medicine 05/01/23 Laure Corona NP [address] [place] [address] Nurse Practitioner Family Medicine 07/10/23 Goals (unrecognized section and content) Goals may be documented in a n alternate section Reason for Visit (unrecogniz ed section and content) Reason Comments Hypertension FOR RECORDS PERTAINING TO PATIENTS WHO ARE [...] BE BASED ON THE PRIMARY CLINICAL RECORDS. [facility]. provides no warranty or guarantee of the accuracy or completeness of information in this document.
[2024-05-28 10:39] LABS: Bilirubin Urine NEGATIVE (NEGATIVE); Blood Urine NEGATIVE (NEGATIVE); Clarity Urine CLEAR (CLEAR); Color Urine LT. YELLOW (YELLOW); Glucose Urine UA NEGATIVE (NEGATIVE); Ketones Urine NEGATIVE (NEGATIVE); Leukocyte Esterase Urine NEGATIVE (NEGATIVE); Nitrite Urine NEGATIVE (NEGATIVE); Protein Urine NEGATIVE (NEG/TRACE); Specific Gravity Urine 1.015 (1.005-1.025); Urobilinogen Urine 0.2 EU/dL (0.2-1.0); pH Urine 5.5 (5.0-9.0)
[2024-05-28 10:41] LABS: Urine Microscopic Indicated NO
[2024-05-28 12:09] LABS: Creatinine Urine Random 74.01 mg/dL (20.00-300.00); Microalbum Creatinine Ratio Ur 17.5 mg/g (0.0-29.9); Microalbumin Urine Random <1.3 mg/dL (<=30.0)
== END 2024-05-28 10:10 | disposition home or self-care (01) ==
LOC: LAB 10:09
PROVIDERS: PCP Nurse Practitioner; Visit Provider Nurse Practitioner
DX: E78.2 Mixed hyperlipidemia (principal); I10 Essential (primary) hypertension; E03.9 Hypothyroidism, unspecified
CPT/HCPCS: 81003; 82043; 82570

== ENCOUNTER 2024-06-22 09:48 | Outpatient (OUT) | payer MEDICARE, SELFPAY ==
--- OUTSIDE RECORDS SUMMARY | 2024-06-22 09:58 | XMS_ITS | CCD ---
Author Organization [facility] Care Team Providers Care Doors Prefitter Name Role Phone ELIZABETH, DR OLU Martinez [...] Unavailable NADERER, DR OLU Martinez Referring Unavailable CANTON, DR JIMENEZ Hernandez Consulting Unavailable NADERER, DR OLU Martinez Attending Unavailable NADERER, DR OLU Martinez Consulting Unavailable CECILY Falk Emergency Provider MD Olu Johnson Primary Care Provider Candelaria Falk Attending Unavailable Candelaria Falk Admitting Unavailable Olu Johnson Primary Care Unavailable Aichholmagan WASH AND GREASER, Laure Unavailable Olu Johnson MD Primary Care Provider Chloe WASH AND GREASER, Laure Unavailable Olu Johnson MD Primary Care Provider Aicodalis WASH AND GREASER, Laure Unavailable AICHHOLZ, LAURE Attending Unavailable BHAKTI PRASAD Attending Unavailable AICHHOLZ, LAURE Referring Unavailable BLANCA POLLARD Attending Unavailable AICHHOLZ, LAURE Referring Unavailable AICHHOLZ, LAURE Attending Unavailable YEMI STERN Attending Unavailable AICHHOLZ, LAURE Referring Unavailable YEMI STERN Attending Unavailable AICHHOLZ, LAURE Referring Unavailable YEMI STERN Attending Unavailable AICHHOLZ, LAURE Referring Unavailable BHAKTI PRASAD Attending Unavailable AICJasminHOLMagan, LAURE Referring Unavailable AICJasminHOLMagan, LAURE Attending Unavailable GARY CEBALLOS Attending Unavailable GARY CEBALLOS Referring Unavailable AICJasminHOLMagan, LAURE Attending Unavailable AICHHOLZ, LAURE Attending Unavailable AICHHOLZ, LAURE Attending Unavailable AICHHOLZ, LAURE Attending Unavailable SHAIKH WRIGHT Attending Unavailable AICHHOLZ, LAURE Attending Unavailable AICHHOLZ, LAURE Attending Unavailable AICHHOLZ, LAURE Attending Unavailable Allergies Allergy Classification Reported Allergen(s) Allergy Type Date of Onset Reaction(s) Facility (1 source) Cephalexin Drug Allergy 07-28-19 23 [facility] Rep[facility] (1 source) Ciprofloxacin Drug Allergy 07-28-19 23 [facility] (1 source) Penicillin Drug Allergy 07-28-19 23 [facility] (18 sources) Cephalexin; Translations: [cephalexin] Drug Allergy 11-11-19 20 Dizziness, Rash [facility] (2 sources) Ciprofloxacin; Translations: [ciprofloxacin] Drug Allergy 04-25-20 23 Gastrointestinal Upset [facility] (18 sources) Penicillins; Translations: [Penicillins] Allergy to substance 04-25-20 23 Rash [facility] (16 sources) Naproxen Drug Allergy 05-20-19 24 Swelling, Rash [facility] (10 sources) Prednisone Propensity to adverse reactions 07-10-19 24 [facility] Medications Current Medications Medication Drug Class(es) Dates Sig (Normalized) Sig (Original) amLODIPine 5 mg oral tablet (5 sources) Dihydropyridine Calcium Channel [place] Start: 06-18-19 24 End: 07-18-19 24 take 1 tablet by mouth in the morning amLODIPine (Norvasc) 5 MG tablet Indications: Primary hypertension (CMS/HCC) Take 1 tablet (5 mg) by mouth in the morning. 30 tablet 1 06/18/2023 07/18/2023 Active atorvastatin 20 mg oral tablet (1 source) HMG-CoA Reductase Inhibitor Start: 06-03-19 25 End: 09-02-19 25 take 1 tablet by mouth at bedtime atorvastatin (Lipitor) 20 MG tablet Indications: Mixed hyperlipidemia (CMS/HCC) Take 1 tablet (20 mg) by mouth at bedtime 90 tablet 06/03/2024 09/01/2024 Active hydroCHLOROthiazide 25 mg oral tablet (12 sources) Thiazide Diuretic Start: 12-09-19 End: 12-09-19 take 1 tablet by mouth once daily hydroCHLOROthiazide (HYDRODiuril) 25 MG tablet Indications: Primary hypertension (CMS/HCC) Take 1 tablet (25 mg) by mouth Daily 90 tablet 1 04/21/2024 07/20/2024 Active levothyroxine sodium 0.025 mg oral tablet (19 sources) l-Thyroxine Start: 11-06-19 End: 07-26-19 take [...] 02/08/2023 Active lisinopril 20 mg oral tablet (19 sources) Angiotensin Converting Enzyme Inhibitor Start: 04-21-2024 [...] 2023 12:00am sertraline 50 mg oral tablet (12 sources) Serotonin Reuptake Inhibitor Start: 12-18-2023 End: 07-25-2024 take 1 tablet by mouth once daily sertraline (Zoloft) 50 MG tablet Indications: TIMOTEO (generalized anxiety disorder) (CMS/HCC) Take 1 tablet (50 mg) by mouth Daily 90 tablet 1 04/26/2024 07/25/2024 Active simvastatin 40 mg oral tablet (19 sources) HMG-CoA Reductase Inhibitor Start: 11-06-2023 End: 07-25-2024 take 1 tablet by mouth at bedtime simvastatin (Zocor) 40 MG tablet Indications: Hyperlipidemia, unspecified (CMS/HCC) Take 1 tablet (40 mg) by mouth at bedtime 90 tablet 1 04/26/2024 06/03/2024 Discontinued (Ineffective) Start: 04-25-2023 Simvastatin Ac tive MG TABLET April 25, 2023 12:00am Start: 02-08-2023 take 1 tablet by maria a th at bedtime simvastatin (Zocor) 40 MG tablet Take 40 mg by mouth at bedtime 0 02/08/2023 Active Problems Active Problems Problem Classification Problem Date Documented Da te Episodic/Chronic Anxiety disorders (14 sources) Generalized anxiety disorder; Translations: [Generalized anxiety disorder] Onset: 10-16-2023 10-16-2023 Chronic Disorders of lipid metabolism (20 sources) Pure hypercholesterolem ia, unspecified; Translations: [Hyperlipidemia, unspecified] Onset: 03-19-2019 05-01-2023 Chronic Essential hypertension (20 sources) Essential (primary) hypertension; Translations: [Hypertensive disorder] Onset: 03-19-2019 Resolved: 07-10-2023 Chronic Headache; including migraine (1 source) Headache; including migraine; Translations: [HEADACHE UNSPECIFIED] Onset: 07-31-2022 Immunizations and screening for infectious disease (8 sources) Needs influenza immunization; Translations: [Encounter for immunization] Onset: 04-21-2024 04-21-2024 Episodic Nausea and vomiting (4 sources) Nausea with vomiting, unspecified; Translations: [NAUSEA WITH VOMITING UNSPECIFIED] Onset: 07-27-2022 Episodic Nonspecific chest pain (2 sources) Chest pain; Translations: [Chest pain, unspecified] Onset: 04-25-2023 04-25-2023 Episodic Other aftercare (1 source) 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; Translations: [OTH CARE HOME CURRENT DRUG THERAPY] Onset: 07-31-2022 Episodic Other diseases of kidney and ureters (3 sources) Abnormal renal function; Translations: [Disorder of kidney and ureter, unspecified] Onset: 05-28-2024 05-28-2024 Episodic Other gastrointestinal disorders (1 source) Diarrhea, unspecified; Translations: [DIARRHEA UNSPECIFIED] Onset: 07-31-2022 Episodic Screening and history of mental health and substance abuse codes (1 source) Personal history of nicotine dependence; Translations: [PERSONAL HISTORY OF NICOTINE DEPEND] Onset: 07-31-2022 Episodic Thyroid disorders (19 sources) Hypothyroidism, unspecified; Translations: [Hypothyroidism] Onset: 03-19-2019 05-01-2023 Chronic Past or Other Problems Problem Classification Problem Date Documented Date Episodic/Chronic Mood disorders (15 sources) Mood disorders Onset: 06-17-2023 06-17-2023 Other connective tissue disease (19 sources) Lateral epicondylitis of left humerus; Translations: [Lateral epicondylitis, left elbow] Onset: 05-01-2023 06-13-2023 Episodic Other lower respiratory disease (4 sources) Solitary pulmonary nodule; Translations: [SOLITARY PULMONARY NODULE] Onset: 10-31-2021 Episodic Other non-traumatic joint disorders (10 sources) Pain in left shoulder; Translations: [Pain in joint, shoulder region] Onset: 07-10-2023 07-10-2023 Episodic Other nutritional; endocrine; and metabolic disorders (17 sources) Overweight in adulthood with body mass index of 25 or more but less than 30; Translations: [Body mass index (BMI) 25.0-25.9, adult] Onset: 06-17-2023 06-17-2023 Episodic Other screening for suspected conditions (not mental disorders or infectious disease) (19 sources) Encounter for screening mammogram for malignant neoplasm of breast; Translations: [Patient encounter status] Onset: 11-02-2021 05-20-2023 Episodic Other upper respiratory infections (20 sources) Acute upper respiratory infection; Translations: [Acute [...] Spondylosis; intervertebral disc disorders; other back problems (20 sources) Nerve root disorder; Translations: [Radiculopathy, site unspecified] Onset: 05-01-2023 04-25-2023 Episodic Results Test Name Value Interpretation Reference Range Facility [facility] UA (CLEAN/CATCH) MICROSC OPIC IF INDICATEon 05-28-2024 BILIRUBIN URINE Negative NEGATIVE [facility] BLOOD URINE Negative NEGATIVE [facility] Clarity (U) CLEAR CLEAR [facility] Color (U) LT. YELLOW YELLOW [facility] GLUCOSE URINE UA Negative NEGATIVE mg/dL [facility] Ketones Ql (U) Negative NEGATIVE mg/dL [facility] Leukocyte esterase Test strip Ql (U) Negative NEGATIVE [facility] NITRITE URINE Negative NEGATIVE [facility] pH (U) 5.5 [pH] 5.0 - 9.0 [facility] PROTEIN URINE Negative NEG/TRACE mg/dL [facility] SPECIFIC GRAVITY URINE 1.015 1.005 - 1.025 [facility] URINE MICROSCOPIC INDICATED NO [facility] UROBILINOGEN URINE 0.2 EU/dL 0.2 - 1.0 EU/dL [facility] ALL CBC WITH AUTO DIFFon BASOPHILS ABSOLUTE AUTO 0.1 [facility] Basophils/100 WBC (Bld) 1.1 % 0.2 - 2.0 % [facility] Eosinophils/100 WBC (Bld) 2 % 0.9 - 7.0 % [facility] Erythrocyte distribution width (RBC) [Ratio] 12.5 % 11.0 - 15.0 % [facility] Hematocrit (Bld) [Volume fraction] 38.6 % 36.0 - 48.0 % [facility] Hemoglobin (Bld) [Mass/Vol] 12.7 g/dL 12.0 - 16.0 g/dL [facility] IMMATURE GRANULOCYTES ABS AUTO 0.02 [facility] Immature granulocytes/100 WBC (Bld) 0.3 % 0.0 - 0.5 % [facility] Interpretation and review of laboratory results Abnormal [facility] LYMPHOCYTES ABSOLUTE AUTO 2.1 [facility] Lymphocytes/100 WBC (Bld) 33.2 % 20.5 - 60.0 % [facility] MCH (RBC) [Entitic mass] 31.6 pg 26.7 - 34.0 pg [facility] MCHC (RBC) [Mass/Vol] 32.9 g/dL 29.9 - 35.2 g/dL [facility] MCV (RBC) [Entitic vol] 96 fL 81.0 - 99.0 fL [facility] MONOCYTES ABSOLUTE AUTO 0.6 [facility] Monocytes/100 WBC (Bld) 9.5 % 1.7 - 12.0 % [facility] NEUTROPHILS ABSOLUTE AUTO 3.5 [facility] Neutrophils/100 WBC (Bld) 53.9 % 43.0 - 75.0 % [facility] Platelet mean volume (Bld) [Entitic vol] 10.3 fL 9.5 - 13.5 fL [facility] EO # 0.1 [facility] PLT 233 [facility] RBC 4.02 Low [facility] WBC 6.4 [facility] ALL CBC WITH AUTO DIFFon BASOPHILS ABSOLUTE AUTO 0.1 [facility] Basophils/100 WBC (Bld) 1.5 % 0.2 - 2.0 % [facility] Eosinophils/100 WBC (Bld) 3.2 % 0.9 - 7.0 % [facility] Erythrocyte distribution width (RBC) [Ratio] 13.2 % 11.0 - 15.0 % [facility] Hematocrit (Bld) [Volume fraction] 41.7 % 36.0 - 48.0 % [facility] Hemoglobin (Bld) [Mass/Vol] 13.2 g/dL 12.0 - 16.0 g/dL [facility] IMMATURE GRANULOCYTES ABS AUTO 0.04 High [facility] Immature granulocytes/100 WBC (Bld) 0.6 % High 0.0 - 0.5 % [facility] Interpretation and review of laboratory results Abnormal [facility] LYMPHOCYTES ABSOLUTE AUTO 2.5 [facility] Lymphocytes/100 WBC (Bld) 38.4 % 20.5 - 60.0 % [facility] MCH (RBC) [Entitic mass] 30.6 pg 26.7 - 34.0 pg [facility] MCHC (RBC) [Mass/Vol] 31.7 g/dL 29.9 - 35.2 g/dL [facility] MCV (RBC) [Entitic vol] 96.5 fL 81.0 - 99.0 fL [facility] MONOCYTES ABSOLUTE AUTO 0.8 [facility] Monocytes/100 WBC (Bld) 11.8 % 1.7 - 12.0 % [facility] NEUTROPHILS ABSOLUTE AUTO 2.9 [facility] Neutrophils/100 WBC (Bld) 44.5 % 43.0 - 75.0 % [facility] Platelet mean volume (Bld) [Entitic vol] 10.2 fL 9.5 - 13.5 fL [facility] EO # 0.2 [facility] PLT 259 [facility] RBC 4.32 [facility] WBC 6.6 [facility] Activated partial thrombopla stin time (aPTT) in platelet poor plasma by coagulation aOrdered By: Candelaria Falk on 04-25-2023 aPTT Coag (PPP) [Time] 27.5 s 25.1-36.5 [facility] Comment on above: A hematocrit value g reater than 55% may lead to inaccurate results in coagulation testing. Patients having hematocrit values >55% require a special collection tube for coagulation studies. Please contact the laboratory at [phone] for redraw instructions. B-Type Natriuretic Peptideon 04-25-2023 Natriuretic peptide B (Bld) [Mass/Vol] 44.0 pg/mL Normal 5-100 [facility] Comment on above: Result Comment: PERF ORMED BY: [place] [address] PATHOLOGIST CHURNER YUSRA WHITE M.D. Performed By: #### P TT, BMP, CBC, HS TROP, PT, BNP #### [address] Basic Metabolic Panelon 12- Anion gap [Moles/Vol] 12.1 mmol/L Normal 6.0-15.0 [facility] Comment on above: Performed By: #### P TT, BMP, CBC, HS TROP, PT, BNP #### [address] Calcium [Mass/Vol] 9.5 mg/dL Normal 8.6-10.3 [facility] Comment on above: Performed By: #### P TT, BMP, CBC, HS TROP, PT, BNP #### [address] Chloride [Moles/Vol] 103 mmol/L Normal 98-107 [facility] Comment on above: Performed By: #### P TT, BMP, CBC, HS TROP, PT, BNP #### [address] CO2 [Moles/Vol] 27.0 mmol/L Normal 21.0-31.0 [facility] Comment on above: Performed By: #### P TT, BMP, CBC, HS TROP, PT, BNP #### [address] Creatinine [Mass/Vol] 0.81 mg/dL Normal 0.60-1.20 [facility] Comment on above: Performed By: #### P TT, BMP, CBC, HS TROP, PT, BNP #### [place] [address] [place] Creatinine Clr Calc Pharmacy 57.40 Normal [facility] Comment on above: Result Comment: PERF ORMED BY: [place] [address] PATHOLOGIST CHURNER YUSRA WHITE M.D. Performed By: #### P TT, BMP, CBC, HS TROP, PT, BNP #### [facility] [address] [place] [address] [place] GFR/1.73 sq M.predicted MDRD (S/P/Bld) [Vol rate/Area] mL/min/{1.73_m2} Normal [facility] Comment on above: Performed By: #### P TT, BMP, CBC, HS TROP, PT, BNP #### [facility] [address] Glucose [Mass/Vol] 87 mg/dL Normal 70-100 [facility] Comment on above: Result Comment: [facility] Glucose Reference Range is dependent on time and content of last meal. Glucose of more than 200 mg/dL in a nonstressed, ambulatory subject supports the diagnosis of Diabetes Mellitus. ADA recommended reference range Performed By: #### P TT, BMP, CBC, HS TROP, PT, BNP #### [facility] [address] Potassium [Moles/Vol] 4.1 mmol/L Normal 3.5-5.1 [facility] Comment on above: Performed By: #### P TT, BMP, CBC, HS TROP, PT, BNP #### [facility] [address] [place] [address] [place] Sodium [Moles/Vol] 138 mmol/L Normal 136-145 [facility] Comment on above: Performed By: #### P TT, BMP, CBC, HS TROP, PT, BNP #### [facility] [address] [place] [address] [place] Urea nitrogen [Mass/Vol] 17 mg/dL Normal 7-25 [facility] Comment on above: Performed By: #### P TT, BMP, CBC, HS TROP, PT, BNP #### [facility] [address] [place] [address] [place] Basophils Auto (Bld) [#/Vol] Ordered By: Candelaria Falk on 04-25-2023 Basophils (Bld) [#/Vol] 0.0 10*3/uL 0.0-0.2 [facility] Basophils/100 WBC Auto (Bld) Ordered By: Candelaria Falk on 04-25-2023 Basophils/100 WBC (Bld) 0.3 % . [facility] COVID CepheidOrdered By: Carie Falk on 04-25-2023 SARS-CoV-2 (COVID-19) Ab IA Ql Negative Negative [facility] Comment on above: This is a duplicate Cepheid Xpert Xpress CoV-2/Flu/RSV Plus RNA by RT-PCR result to be used for statistical tracking purpose only. SARS-CoV-2 (COVID-19) RNA CASSIDY+probe Ql (Unsp spec) [facility] COVID-19 / Flu A/B / RSV [...] or Cepheid Disclaimer revoked sooner. PERFORMED BY: [place] [address] PATHOLOGIST CHURNER YUSRA WHITE M.D. [facility] Comment on above: Performed By: #### C EPHEID NEG, COVID19 FLU RSV #### [address] head/brain wo conon 04-25 CT head/brain wo con [facility] Main [place] [address] [place] [address] CT Scan Report Signed Patient: Edilma Leonardo MR#: [id number] : 1955 Acct:[id number] Age/Sex: 67 / F ADM Date: 04/25/23 Loc: ER Room: Type: [facility] Attending Dr: Copies to: Candelaria Falk APRN [...] Lamin Park M.D.04/25/2023 9:04 PM Dictation Location: [place] [address] Transcribed By: JONATHON 04/25/232103 Dictated By: Lamin Park II, MD 04/25/232101 Signed By: 04/25/232103 Normal [facility] Calcium [Mass/volume] in Ser um or PlasmaOrdered By: Candelaria Falk on 04-25-2023 Calcium [Mass/Vol] 9.5 mg/dL 8.6-10.3 [facility] Carbon dioxide, total [Moles /volume] in Serum or PlasmaOrdered By: Candelaria Falk on 04-25-2023 CO2 [Moles/Vol] 27.0 mmol/L 21.0-31.0 [facility] Cepheid COVID PCR Negativeon 04-25-2023 SARS-CoV-2 (COVID-19) RNA CASSIDY+probe Ql (Unsp spec) Negative Normal Negative [facility] Comment on above: Result Comment: This is a duplicate Cepheid Xpert Xpress CoV-2/Flu/RSV Plus RNA by RT-PCR result to be used for statistical tracking purpose only. PERFORMED BY: [place] [address] PATHOLOGIST CHURNER YUSRA WHITE M.D. Performed By: #### C EPHEID NEG, COVID19 FLU RSV #### [address] Chloride [Moles/volume] in S pawel or PlasmaOrdered By: Candelaria Falk on 04-25-2023 Chloride [Moles/Vol] 103 mmol/L 98-107 [facility] Complete Blood Count Auto Di ffon 04-25-2023 Basophils (Bld) [#/Vol] 0.0 10*3/uL Normal 0.0-0.2 [facility] Comment on above: Result Comment: PERF ORMED BY: [place] [address] PATHOLOGIST CHURNER YUSRA WHITE M.D. Performed By: #### P TT, BMP, CBC, HS TROP, PT, BNP #### [address] Basophils/100 WBC (Bld) 0.3 % Normal . [facility] Comment on above: Performed By: #### P TT, BMP, CBC, HS TROP, PT, BNP #### [place] [address] [place] Eosinophils (Bld) [#/Vol] 0.2 10*3/uL Normal 0.0-0.45 [facility] Comment on above: Performed By: #### P TT, BMP, CBC, HS TROP, PT, BNP #### [place] [address] [place] Eosinophils/100 WBC (Bld) 2.6 % Normal . [facility] Comment on above: Performed By: #### P TT, BMP, CBC, HS TROP, PT, BNP #### [address] Erythrocyte distribution width (RBC) [Ratio] 13.5 % Normal 11.9-15.3 [facility] Comment on above: Performed By: #### P TT, BMP, CBC, HS TROP, PT, BNP #### [place] [address] [place] Hematocrit (Bld) [Volume fraction] 42.5 % Normal 34.0-46.4 [facility] Comment on above: Performed By: #### P TT, BMP, CBC, HS TROP, PT, BNP #### [place] [address] [place] Hemoglobin (Bld) [Mass/Vol] 14.4 g/dL Normal 11.8-15.4 [facility] Comment on above: Performed By: #### P TT, BMP, CBC, HS TROP, PT, BNP #### [address] Lymphocytes (Bld) [#/Vol] 2.9 10*3/uL Normal 1.00-4.8 [facility] Comment on above: Performed By: #### P TT, BMP, CBC, HS TROP, PT, BNP #### [address] Lymphocytes/100 WBC (Bld) 40.1 % Normal . [facility] Comment on above: Performed By: #### P TT, BMP, CBC, HS TROP, PT, BNP #### [address] MCH (RBC) [Entitic mass] 31.9 pg Normal 24.7-34.3 [facility] Comment on above: Performed By: #### P TT, BMP, CBC, HS TROP, PT, BNP #### [address] MCV (RBC) [Entitic vol] 93.8 fL Normal 80-100 [facility] Comment on above: Performed By: #### P TT, BMP, CBC, HS TROP, PT, BNP #### [address] Mean Corpuscular HGB Conc 34.0 g/dL Normal 32.0-35.0 [facility] Comment on above: Performed By: #### P TT, BMP, CBC, HS TROP, PT, BNP #### [place] [address] [place] Monocytes (Bld) [#/Vol] 0.6 10*3/uL Normal 0.0-0.8 [facility] Comment on above: Performed By: #### P TT, BMP, CBC, HS TROP, PT, BNP #### [address] Monocytes/100 WBC (Bld) 20.21 % High 0.00-20.00 [facility] Comment on above: Result Comment: For adults in ED, MDW > 20.0 may be associated with a higher risk of sepsis during the first 12 hrs of hospital admission Performed By: #### P TT, BMP, CBC, HS TROP, PT, BNP #### [address] Monocytes/100 WBC (Bld) 7.9 % Normal . [facility] Comment on above: Performed By: #### P TT, BMP, CBC, HS TROP, PT, BNP #### [address] Neutrophils (Bld) [#/Vol] 3.5 10*3/uL Normal 1.8-7.7 [facility] Comment on above: Performed By: #### P TT, BMP, CBC, HS TROP, PT, BNP #### [address] Neutrophils/100 WBC (Bld) 49.1 % Normal . [facility] Comment on above: Performed By: #### P TT, BMP, CBC, HS TROP, PT, BNP #### [address] NRBC% 0.0 /100{WBC} Normal 0-0.5 [facility] Comment on above: Performed By: #### P TT, BMP, CBC, HS TROP, PT, BNP #### [place] [address] [place] Platelet mean volume (Bld) [Entitic vol] 8.1 fL Normal 6.3-10.7 [facility] Comment on above: Performed By: #### P TT, BMP, CBC, HS TROP, PT, BNP #### [place] [address] [place] Platelets (Bld) [#/Vol] 247 10*3/uL Normal 150-450 [facility] Comment on above: Performed By: #### P TT, BMP, CBC, HS TROP, PT, BNP #### [place] [address] [place] RBC (Bld) [#/Vol] 4.53 10*6/uL Normal 3.60-5.00 [facility] Comment on above: Performed By: #### P TT, BMP, CBC, HS TROP, PT, BNP #### [facility] [address] [place] [id number] [place] WBC (Bld) [#/Vol] 7.2 10*3/uL Normal 3.8-11.6 [facility] Comment on above: Performed By: #### P TT, BMP, CBC, HS TROP, PT, BNP #### [facility] [address] Creatinine [Mass/volume] in Serum or PlasmaOrdered By: Candelaria Falk on 04-25-2023 Creatinine [Mass/Vol] 0.81 mg/dL 0.60-1.20 [facility] ECG 12 lead ECGon 04-25-2023 ECG 12 lead ECG [facility] Main [place] [address] [place] [address] Electrocardiograph Report Signed Patient: Edilma Leonardo MR#: [id number] : 1955 Acct:[id number] Age/Sex: 67 / F ADM Date: 04/25/23 [...] sinus rhythm Confirmed by Santiago BLAKE DO ([id number]) on 04/25/2023 6:14:25 PM Referred By: Electronically Signed By:Santiago BLAKE DO Transcribed By: MUS Signed By Santiago Blake DO 1 06/26/221813 Normal [facility] Eosinophils Auto (Bld) [#/Vo l]Ordered By: Candelaria Falk on 04-25-2023 Eosinophils (Bld) [#/Vol] 0.2 10*3/uL 0.0-0.45 [facility] Eosinophils/100 WBC Auto (Bl d)Ordered By: Candelaria Falk on 04-25-2023 Eosinophils/100 WBC (Bld) 2.6 % . [facility] Erythrocyte distribution wid th Auto (RBC) [Ratio]Ordered By: Candelaria Falk on 04-25-2023 Erythrocyte distribution width (RBC) [Ratio] 13.5 % 11.9-15.3 [facility] Glucose [Mass/volume] in Ser um or PlasmaOrdered By: Candelaria Falk on 04-25-2023 Glucose [Mass/Vol] 87 mg/dL 70-100 [facility] Comment on above: ADA recommended refe rence rangeRandom Glucose Reference Range is dependent on time and content of last meal. Glucose of more than 200 mg/dL in a nonstressed, ambulatory subject supports the diagnosis of Diabetes Mellitus. Hematocrit Auto (Bld) [Volum e fraction]Ordered By: Candelaria Falk on 04-25-2023 Hematocrit (Bld) [Volume fraction] 42.5 % 34.0-46.4 [facility] Hemoglobin [Mass/volume] in BloodOrdered By: Candelaria Falk 04-25-2023 Hemoglobin (Bld) [Mass/Vol] 14.4 g/dL 11.8-15.4 [facility] INR in Platelet poor plasma by Coagulation assayOrdered By: Candelaria Falk 04-25-2023 INR Coag (PPP) [Relative time] 1.0 {INR} [facility] Comment on above: INR Therapeutic Rang [...] RBC Auto (Bld) [#/Vol] 7.2 10*3/uL 3.8-11.6 [facility] Lymphocytes Auto (Bld) [#/Vo l]Ordered By: Candelaria Falk on 04-25-2023 Lymphocytes (Bld) [#/Vol] 2.9 10*3/uL 1.00-4.8 [facility] Lymphocytes/100 WBC Auto (Bl d)Ordered By: Candealria Falk on 04-25-2023 Lymphocytes/100 WBC (Bld) 40.1 % . [facility] MCH Auto (RBC) [Entitic mass ]Ordered By: Candelaria Falk on 04-25-2023 MCH (RBC) [Entitic mass] 31.9 pg 24.7-34.3 [facility] MCHC Auto (RBC) [Mass/Vol]Or dered By: Candelaria Falk on 04-25-2023 MCHC (RBC) [Mass/Vol] 34.0 g/dL 32.0-35.0 [facility] MCV Auto (RBC) [Entitic vol] Ordered By: Candelaria Falk on 04-25-2023 MCV (RBC) [Entitic vol] 93.8 fL 80-100 [facility] Monocyte distribution width [Entitic volume] in Blood by AutomatedOrdered By: Candelaria Falk on 04-25-2023 Monocyte distribution width Auto (Bld) [Entitic vol] 20.21 % 0.00-20.00 [facility] Comment on above: For adults in ED, MD W > 20.0 may be associated with a higher risk of sepsis during the first 12 hrs of hospital admission Monocytes Auto (Bld) [#/Vol] Ordered By: Candelaria Falk on 04-25-2023 Monocytes (Bld) [#/Vol] 0.6 10*3/uL 0.0-0.8 [facility] Monocytes/100 WBC Auto (Bld) Ordered By: Candelaria Falk on 04-25-2023 Monocytes/100 WBC (Bld) 7.9 % . [facility] Natriuretic peptide B [Mass/ Vol]Ordered By: Candelaria Falk on 04-25-2023 Natriuretic peptide B (Bld) [Mass/Vol] 44.0 pg/mL 5-100 [facility] Neutrophils Auto (Bld) [#/Vo l]Ordered By: Candelaria Falk on 04-25-2023 Neutrophils (Bld) [#/Vol] 3.5 10*3/uL 1.8-7.7 [facility] Neutrophils/100 WBC Auto (Bl d)Ordered By: Candelaria Falk on 04-25-2023 Neutrophils/100 WBC (Bld) 49.1 % . [facility] No Panel InformationOrdered By: Candelaria Falk on 04-25-2023 Estimated GFR (CKD-EPI) > 60.0 mL/Min [facility] Creatinine Clearance (Chem 57.40 [facility] Nucleated erythrocytes [Pres ence] in Blood by Automated countOrdered By: Candelaria Falk on 04-25-2023 Nucleated RBC Auto Ql (Bld) 0.0 /100{WBC} 0-0.5 [facility] Partial Thromboplastin Timeo n 04-25-2023 aPTT Coag (Bld) [Time] 27.5 s Normal 25.1-36.5 [facility] Comment on above: Result Comment: A he matocrit value greater than 55% may lead to inaccurate results in coagulation testing. Patients having hematocrit values >55% require a special collection tube for coagulation studies. Please contact the laboratory at [phone] for redraw instructions. PERFORMED BY: [place] [id number] PATHOLOGIST CHURNER YUSRA WHITE M.D. Performed By: #### H S TROP #### [address] Platelet mean volume Auto (B ld) [Entitic vol]Ordered By: Candelaria Falk on 04-25-2023 Platelet mean volume (Bld) [Entitic vol] 8.1 fL 6.3-10.7 [facility] Platelets Auto (Bld) [#/Vol] Ordered By: Candelaria Falk on 04-25-2023 Platelets (Bld) [#/Vol] 247 10*3/uL 150-450 [facility] Potassium [Moles/volume] in Serum or PlasmaOrdered By: Candelaria Falk on 04-25-2023 Potassium [Moles/Vol] 4.1 mmol/L 3.5-5.1 [facility] Prothrombin Time INRon 04-25 INR Coag (PPP) [Relative time] 1.0 {INR} Normal [facility] Comment on above: Result Comment: INR [...] BMP, CBC, HS TROP, PT, BNP #### [facility] [address] PT Coag (PPP) [Time] 11.5 s Normal 9.0-12.9 [facility] Comment on above: Result Comment: A he matocrit value greater than 55% may lead to inaccurate results in coagulation testing. Patients having hematocrit values >55% require a special collection tube for coagulation studies. Please contact the laboratory at [phone] for redraw instructions. Performed By: #### P TT, BMP, CBC, HS TROP, PT, BNP #### [facility] [address] [place] [id number] [facility] Prothrombin time (PT)Ordered By: Candelaria Falk on 04-25-2023 PT Coag (PPP) [Time] 11.5 s 9.0-12.9 [facility] Comment on above: A hematocrit value g reater than 55% may lead to inaccurate results in coagulation testing. Patients having hematocrit values >55% require a special collection tube for coagulation studies. Please contact the laboratory at [phone] for redraw instructions. RBC Auto (Bld) [#/Vol]Ordere d By: Candelaria Falk on 04-25-2023 RBC (Bld) [#/Vol] 4.53 10*6/uL 3.60-5.00 [facility] Serum or plasma anion gap de terminationOrdered By: Candelaria Falk on 04-25-2023 Anion gap [Moles/Vol] 12.1 mmol/L 6.0-15.0 [facility] Sodium [Moles/volume] in Ser um or PlasmaOrdered By: Candelaria Falk on 04-25-2023 Sodium [Moles/Vol] 138 mmol/L 136-145 [facility] Troponin I High Sensitivityo n 04-25-2023 Troponin I High Sensitivity 3.8 pg/mL Normal 0.0-15.0 [facility] Comment on above: Result Comment: PERF ORMED BY: [place] [address] PATHOLOGIST CHURNER YUSRA WHITE M.D. Performed By: #### H S TROP #### [facility] [address] [place] [address] Troponin I High Sensitivity 3.9 pg/mL Normal 0.0-15.0 [facility] Comment on above: Result Comment: PERF ORMED BY: [place] [address] PATHOLOGIST CHURNER YUSRA WHITE M.D. Performed By: #### P TT, BMP, CBC, HS TROP, PT, BNP #### [facility] [address] [place] [address] Troponin I.cardiac [Mass/vol ume] in Serum or Plasma by Detection limit <= 0.01 ng/Ordered By: Candelaria Falk on 04-25-2023 Troponin I.cardiac DL <= 0.01 ng/mL [Mass/Vol] 3.8 pg/mL 0.0-15.0 [facility] Urea nitrogen [Mass/volume] in Serum or PlasmaOrdered By: Candelaria Falk on 04-25-2023 Urea nitrogen [Mass/Vol] 17 mg/dL 7-25 [facility] WBC Auto (Bld) [#/Vol]Ordere d By: Candelaria Falk on 04-25-2023 WBC (Bld) [#/Vol] 7.2 10*3/uL 3.8-11.6 [facility] XR chest 2V*on 04-25-2023 XR chest 2V* [facility] Main [employer] [address] [place] [address] XRay Report Signed Patient: Edilma Leonardo MR#: [id number] : 1955 Acct:[id number] Age/Sex: 67 / F ADM Date: 04/25/23 Loc: ER Room: Type: [facility] ER Attending Dr: Copies to: [...] Lamin Park M.D.04/25/2023 6:34 PM Dictation Location: [place] [address] Transcribed By: [facility] 04/25/231833 Dictated By: Lamin Park II, MD 04/25/231832 Signed By: 04/25/231833 Normal [facility] CBC W MANUAL DIFFon 07-28-19 ATYPICAL LYMPH # Normal [facility] Comment on above: Performed By: #### F T3, ALT, AST, BMP, TSH, LIPID #### [facility] [address] [place] [address] [address] Reji Pickett ATYPICAL LYMPH % Normal [facility] Comment on above: Performed By: #### F T3, ALT, AST, BMP, TSH, LIPID #### [facility] [address] [place] [address] [address] Reji Pickett BAND # Normal 0.0-0.3 [facility] Comment on above: Performed By: #### F T3, ALT, AST, BMP, TSH, LIPID #### [facility] [address] [place] [address] [address] Reji Pickett BAND % Normal 0-5 [facility] Comment on above: Performed By: #### F T3, ALT, AST, BMP, TSH, LIPID #### [facility] [address] [place] [address] [address] Reji Pickett BASOM # 0.00 103/ul Normal 0.00-0.10 [facility] Comment on above: Performed By: #### F T3, ALT, AST, BMP, TSH, LIPID #### [facility] [address] [place] [address] [address] Reji Pickett BASOM % 0.0 % Critically low 0.2-2.0 [facility] Comment on above: Performed By: #### F T3, ALT, AST, BMP, TSH, LIPID #### [facility] [address] [place] [address] Dr. Reji Pickett BLAST # Normal [facility] Comment on above: Performed By: #### F T3, ALT, AST, BMP, TSH, LIPID #### [facility] [address] [place] [address] Dr. Reji Pickett BLAST % Normal [facility] Comment on above: Performed By: #### F T3, ALT, AST, BMP, TSH, LIPID #### [facility] [address] [place] [address] Dr. Reji Pickett CORRECTED WBC Normal 4.0-11.0 [facility] Comment on above: Performed By: #### F T3, ALT, AST, BMP, TSH, LIPID #### [facility] [address] [place] [address] Dr. Reji Pickett EOS # 0.10 103/ul Normal 0.00-0.70 [facility] Comment on above: Performed By: #### F T3, ALT, AST, BMP, TSH, LIPID #### [facility] [address] [place] [address] Dr. Reji Pickett EOS% 1.0 % Normal 0.9-7.0 [facility] Comment on above: Performed By: #### F T3, ALT, AST, BMP, TSH, LIPID #### [facility] [address] [place] [address] [address] Reji Pickett HCT 41.1 % Normal 36.0-48.0 [facility] Comment on above: Performed By: #### F T3, ALT, AST, BMP, TSH, LIPID #### [facility] [address] [place] [address] [address] Reji Pickett HGB 13.6 g/dl Normal 12.0-16.0 [facility] Comment on above: Performed By: #### F T3, ALT, AST, BMP, TSH, LIPID #### [facility] [address] [place] [address] Dr. Reji Pickett LYMPHM # 0.40 103/ul Critically low 1.20-3.80 [facility] Comment on above: Performed By: #### F T3, ALT, AST, BMP, TSH, LIPID #### [facility] [address] [place] [address] Dr. Reji Pickett LYMPHM% 4.0 % Critically low 20.5-60.0 [facility] Comment on above: Performed By: #### F T3, ALT, AST, BMP, TSH, LIPID #### [facility] [address] [place] [address] Dr. Reji Pickett MCH 31.3 pg Normal 26.7-34.0 [facility] Comment on above: Performed By: #### F T3, ALT, AST, BMP, TSH, LIPID #### [facility] [address] [place] [address] Dr. Reji Pickett MCHC 33.1 g/dl Normal 29.9-35.2 [facility] Comment on above: Performed By: #### F T3, ALT, AST, BMP, TSH, LIPID #### [facility] [address] [place] [address] Dr. Reji Pickett MCV 94.5 fL Normal 81.0-99.0 [facility] Comment on above: Performed By: #### F T3, ALT, AST, BMP, TSH, LIPID #### [facility] [address] [place] [address] Dr. Reji Pickett METAMYELOCYTE # Normal [facility] Comment on above: Performed By: #### F T3, ALT, AST, BMP, TSH, LIPID #### [facility] [address] [place] [address] Dr. Reji Pickett METAMYELOCYTE % Normal [facility] Comment on above: Performed By: #### F T3, ALT, AST, BMP, TSH, LIPID #### [facility] [address] [place] [address] Dr. Reji Pickett MONOM# 0.61 103/ul Normal 0.30-0.80 [facility] Comment on above: Performed By: #### F T3, ALT, AST, BMP, TSH, LIPID #### [facility] [address] [place] [address] Dr. Reji Pickett MONOM% 6.0 % Normal 1.7-12.0 [facility] Comment on above: Performed By: #### F T3, ALT, AST, BMP, TSH, LIPID #### [facility] [address] [place] [address] Dr. Reji Pickett MPV 9.8 fL Normal 9.5-13.5 [facility] Comment on above: Performed By: #### F T3, ALT, AST, BMP, TSH, LIPID #### [facility] [address] [place] [address] Dr. Reji Pickett MYELOCYTE # Normal [facility] Comment on above: Performed By: #### F T3, ALT, AST, BMP, TSH, LIPID #### [facility] [address] [place] [address] Dr. Reji Pickett MYELOCYTE % Normal [facility] Comment on above: Performed By: #### F T3, ALT, AST, BMP, TSH, LIPID #### [facility] [address] [place] [address] Dr. Reji Pickett NRBC Normal [facility] Comment on above: Performed By: #### F T3, ALT, AST, BMP, TSH, LIPID #### [facility] [address] [place] [address] Dr. Reji Pickett PLT 191 103/ul Normal 150-450 [facility] Comment on above: Performed By: #### F T3, ALT, AST, BMP, TSH, LIPID #### [facility] [address] [place] [address] Dr. Reji Pickett RBC 4.35 106/ul Normal 4.20-5.40 [facility] Comment on above: Performed By: #### F T3, ALT, AST, BMP, TSH, LIPID #### [facility] [address] [place] [address] Dr. Reji Pickett RDW 13.7 % Normal 11.0-15.0 [facility] Comment on above: Performed By: #### F T3, ALT, AST, BMP, TSH, LIPID #### [facility] [address] [place] [address] Dr. Reji Pickett SEG # 8.99 103/ul Critically high 1.40-6.50 [facility] Comment on above: Performed By: #### F T3, ALT, AST, BMP, TSH, LIPID #### [facility] [address] [place] [address] Dr. Reji Pickett SEG % 89.0 % Critically high 43.0-75.0 [facility] Comment on above: Performed By: #### F T3, ALT, AST, BMP, TSH, LIPID #### [facility] [address] [place] [address] Dr. Reji Pickett WBC 10.1 103/ul Normal 4.0-11.0 [facility] Comment on above: Performed By: #### F T3, ALT, AST, BMP, TSH, LIPID #### [facility] [address] [place] [address] Dr. Reji Pickett CPKon 07-27-2022 CK [Catalytic activity/Vol] 53 U/L Normal 26-192 [facility] Comment on above: Performed By: #### F T3, ALT, AST, BMP, TSH, LIPID #### [facility] [address] [place] [address] Dr. Reji Pickett ER URINE PROFILEon 3 Bilirubin Ql (U) Negative Normal NEGATIVE [facility] Comment on above: Performed By: #### E RUR #### [facility] [address] [place] [address] [address] Reji Pickett Clarity (U) CLEAR Normal CLEAR [facility] Comment on above: Performed By: #### E RUR #### [facility] [address] [place] [address] Dr. Reji Pickett Color (U) LT. YELLOW Normal YELLOW [facility] Comment on above: Performed By: #### E RUR #### [facility] [address] [place] [address] Dr. Reji Pickett ERUDEMETRIO A micrscopic examina tion will be performed if indicated. Normal [facility] Comment on above: Performed By: #### E RUR #### [facility] [address] [place] [address] Dr. Reji Pickett Glucose Ql (U) Negative Normal NEGATIVE [facility] Comment on above: Performed By: #### E RUR #### [facility] [address] [place] [address] Dr. Reji Pickett Hemoglobin Ql (U) Negative Normal NEGATIVE [facility] Comment on above: Performed By: #### E RUR #### [facility] [address] [place] [address] Dr. Reji Pickett Ketones Ql (U) TRACE Abnormal NEGATIVE [facility] Comment on above: Performed By: #### E RUR #### [facility] [address] [place] [address] Dr. Reji Pickett LEUKOCYTES Negative Normal NEGATIVE [facility] Comment on above: Performed By: #### E RUR #### [facility] [address] [place] [address] Dr. Reji Pickett Nitrite Ql (U) Negative Normal NEGATIVE [facility] Comment on above: Performed By: #### E RUR #### [facility] [address] [place] [address] Dr. Reji Pickett pH (U) 6.0 [pH] Normal 5-9 [facility] Comment on above: Performed By: #### E RUR #### [facility] [address] [place] [address] Dr. Reji Pickett SPEC GRAVITY 1.020 Normal 1.005-<=1. 025 [facility] Comment on above: Performed By: #### E RUR #### [facility] [address] [place] [address] Dr. Reji Pickett UA PROTEIN Negative Normal NEGATIVE/ TRACE [facility] Comment on above: Performed By: #### E RUR #### [facility] [address] [place] [address] Dr. Reji Pickett UR MICRO IND NOT INDICATED Normal [facility] Comment on above: Performed By: #### E RUR #### [facility] [address] [place] [address] Dr. Reji Pickett Urobilinogen Qn (U) 0.2 {Yamile'U}/dL Normal 0.2 - 1. 0 [facility] Comment on above: Performed By: #### E RUR #### [facility] [address] [place] [address] Dr. Reji Pickett LIPASEon 07-27-2022 Lipase [Catalytic activity/Vol] 138.0 U/L Normal 73.0-393.0 [facility] Comment on above: Performed By: #### F T3, ALT, AST, BMP, TSH, LIPID #### [facility] [address] [place] [address] Dr. Reji Pickett PROF 14(COMP METB)on 023 Albumin [Mass/Vol] 3.8 g/dL Normal 3.4-5.0 [facility] Comment on above: Performed By: #### F T3, ALT, AST, BMP, TSH, LIPID #### [facility] [address] [place] [address] Dr. Reji Pickett Albumin/Globulin [Mass ratio] 1.4 {ratio} Normal [facility] Comment on above: Performed By: #### F T3, ALT, AST, BMP, TSH, LIPID #### [facility] [address] [place] [address] Dr. Reji Pickett ALP [Catalytic activity/Vol] 74 U/L Normal 46-116 [facility] Comment on above: Performed By: #### F T3, ALT, AST, BMP, TSH, LIPID #### [facility] [address] [place] [address] Dr. Reji Pickett ALT [Catalytic activity/Vol] 36 U/L Normal 14-59 [facility] Comment on above: Performed By: #### F T3, ALT, AST, BMP, TSH, LIPID #### [facility] [address] [place] [address] Dr. Reji Pickett Anion gap [Moles/Vol] 14.1 mmol/L Normal [facility] Comment on above: Performed By: #### F T3, ALT, AST, BMP, TSH, LIPID #### [facility] [address] [place] [address] Dr. Reji Pickett AST [Catalytic activity/Vol] 25 U/L Normal 15-37 [facility] Comment on above: Performed By: #### F T3, ALT, AST, BMP, TSH, LIPID #### [facility] [address] [place] [address] Dr. Reji Pickett Bilirubin [Mass/Vol] 0.8 mg/dL Normal 0.2-1.0 [facility] Comment on above: Performed By: #### F T3, ALT, AST, BMP, TSH, LIPID #### [facility] [address] [place] [address] Dr. Reji Pickett Calcium [Mass/Vol] 8.7 mg/dL Normal 8.5-10.1 [facility] Comment on above: Performed By: #### F T3, ALT, AST, BMP, TSH, LIPID #### [facility] [address] [place] [address] Dr. Reji Pickett Chloride [Moles/Vol] 111 mmol/L Critically high 98-107 [facility] Comment on above: Performed By: #### F T3, ALT, AST, BMP, TSH, LIPID #### [facility] [address] [place] [address] Dr. Reji Pickett CO2 [Moles/Vol] 22.7 mmol/L Normal 21.0-32.0 [facility] Comment on above: Performed By: #### F T3, ALT, AST, BMP, TSH, LIPID #### [facility] [address] [place] [address] [address] Reji Pickett Creatinine [Mass/Vol] 0.79 mg/dL Normal 0.55-1.02 [facility] Comment on above: Performed By: #### F T3, ALT, AST, BMP, TSH, LIPID #### [facility] [address] [place] [address] Dr. Reji Pickett EGFR-AF LEBANESE >60 Normal >=60 [facility] Comment on above: Performed By: #### F T3, ALT, AST, BMP, TSH, LIPID #### [facility] [address] [place] [address] Dr. Reji Pickett EGFR-NON AF LEBANESE >60 Normal >=60 [facility] Comment on above: Performed By: #### F T3, ALT, AST, BMP, TSH, LIPID #### [facility] [address] [place] [address] Dr. Reji Pickett Globulin (S) [Mass/Vol] 2.7 g/dL Normal [facility] Comment on above: Performed By: #### F T3, ALT, AST, BMP, TSH, LIPID #### [facility] [address] [place] [address] Dr. Reji Pickett Glucose [Mass/Vol] 94 mg/dL Normal 74-106 [facility] Comment on above: Performed By: #### F T3, ALT, AST, BMP, TSH, LIPID #### [facility] [address] [place] [address] Dr. Reji Pickett Potassium [Moles/Vol] 4.8 mmol/L Normal 3.5-5.1 [facility] Comment on above: Performed By: #### F T3, ALT, AST, BMP, TSH, LIPID #### [facility] [address] [place] [address] Dr. Reji Pickett Protein [Mass/Vol] 6.5 g/dL Normal 6.4-8.2 [facility] Comment on above: Performed By: #### F T3, ALT, AST, BMP, TSH, LIPID #### [facility] [address] [address] [address] Reji Pickett Sodium [Moles/Vol] 143 mmol/L Normal 136-145 [facility] Comment on above: Performed By: #### F T3, ALT, AST, BMP, TSH, LIPID #### [facility] [address] [address] [address] Reji Pickett Urea nitrogen [Mass/Vol] 20.0 mg/dL Critically high 7.0-18.0 [facility] Comment on above: Performed By: #### F T3, ALT, AST, BMP, TSH, LIPID #### [facility] [address] [address] [address] Reji Pickett Urea nitrogen/Creatinine [Mass ratio] 25.3 mg/mg Normal [facility] Comment on above: Performed By: #### F T3, ALT, AST, BMP, TSH, LIPID #### [facility] [address] [address] [address] Reji Pickett TROPONIN, HIGH SENSITIVITYon 07-27-2022 HSTROP 4.5 pg/mL Normal 4.0-51.3 [facility] Comment on above: Result Comment: CUT- OFF POINTS HAVE BEEN ESTABLISHED BASED ON THE FOURTH UNIVERSAL DEFINITIONS OF MYOCARDIAL INFARCTION. THE UPPER REFERENCE LIMIT (URL) OF TROPONIN, DEFINED THE 99TH PERCENTILE OF cTnI DISTRIBUTION IN A REFERENCE POPULATION, HAS BEEN CONFIRMED THE DECISION THRESHOLD FOR IA DIAGNOSIS. Performed By: #### F T3, ALT, AST, BMP, TSH, LIPID #### [facility] [address] [address] CHEST WO CONon [...] JIMENEZ OLIVA Date: 2021-10-31 11:54 Normal [facility] MAMM SCREEN 3D TACO CADon 10-31-2021 MG MAMM SCREEN 3D TACO CAD Patient: EDILMA LEONARDO Exam Date: 10/31/2021 : 1955 Gender:F Ordering : DR OLU JOHNSON . Admission #: [id number] Family : Order #: [id number] CLICK HERE TO VIEW EXAM RADIOLOGY REPORT [...] throat cancer at age 81. LOCATION: [facility] BREAST COMPOSITION: Heterogeneously dense,which may obscure [...] MD on 10/31/2021 at 13:49 Normal [facility] CBC AUTO DIFFon 10-18-2021 BASO # 0.1 103/ul Normal 0.0-0.1 [facility] Comment on above: Performed By: #### F T3, ALT, AST, BMP, TSH, LIPID #### [facility] [address] [place] [address] Dr. Reji Pickett Basophils/100 WBC (Bld) 1.2 % Normal 0.2-2.0 [facility] Comment on above: Performed By: #### F T3, ALT, AST, BMP, TSH, LIPID #### [facility] [address] [place] [address] Dr. Reji Pickett EO # 0.1 103/ul Normal 0.0-0.7 [facility] Comment on above: Performed By: #### F T3, ALT, AST, BMP, TSH, LIPID #### [facility] [address] [place] [address] Dr. Reji Pickett Eosinophils/100 WBC (Bld) 2.3 % Normal 0.9-7.0 [facility] Comment on above: Performed By: #### F T3, ALT, AST, BMP, TSH, LIPID #### [facility] [address] [place] [address] Dr. Reji Pickett Erythrocyte distribution width (RBC) [Ratio] 14.3 % Normal 11.0-15.0 [facility] Comment on above: Performed By: #### F T3, ALT, AST, BMP, TSH, LIPID #### [facility] [address] [place] [address] Dr. Reji Pickett Hematocrit (Bld) [Volume fraction] 40.6 % Normal 36.0-48.0 [facility] Comment on above: Performed By: #### F T3, ALT, AST, BMP, TSH, LIPID #### [facility] [address] [place] [address] Dr. Reji Pickett Hemoglobin (Bld) [Mass/Vol] 12.6 g/dL Normal 12.0-16.0 [facility] Comment on above: Performed By: #### F T3, ALT, AST, BMP, TSH, LIPID #### [facility] [address] [place] [address] Dr. Reji Pickett IG # 0.01 10e3/ul Normal 0.00-0.03 [facility] Comment on above: Performed By: #### F T3, ALT, AST, BMP, TSH, LIPID #### [facility] [address] [place] [address] Dr. Reji Pickett IG % 0.2 % Normal 0.0-0.5 [facility] Comment on above: Performed By: #### F T3, ALT, AST, BMP, TSH, LIPID #### [facility] [address] [place] [address] Dr. Reji Pickett LYMPH # 2.2 103/ul Normal 1.2-3.8 [facility] Comment on above: Performed By: #### F T3, ALT, AST, BMP, TSH, LIPID #### [facility] [address] [place] [address] Dr. Reji Pickett Lymphocytes/100 WBC (Bld) 39.1 % Normal 20.5-60.0 [facility] Comment on above: Performed By: #### F T3, ALT, AST, BMP, TSH, LIPID #### [facility] [address] [place] [address] Dr. Reji Pickett MANUAL DIFF REQ NO Normal [facility] Comment on above: Performed By: #### F T3, ALT, AST, BMP, TSH, LIPID #### [facility] [address] [place] [address] Dr. Reji Pickett MCH (RBC) [Entitic mass] 31.0 pg Normal 26.7-34.0 [facility] Comment on above: Performed By: #### F T3, ALT, AST, BMP, TSH, LIPID #### [facility] [address] [place] [address] Dr. Reji Pickett MCHC (RBC) [Mass/Vol] 31.0 g/dL Normal 29.9-35.2 [facility] Comment on above: Performed By: #### F T3, ALT, AST, BMP, TSH, LIPID #### [facility] [address] [place] [address] Dr. Reji Pickett MCV (RBC) [Entitic vol] 99.8 fL Critically high 81.0-99.0 [facility] Comment on above: Performed By: #### F T3, ALT, AST, BMP, TSH, LIPID #### [facility] [address] [place] [address] Dr. Reji Pickett MONO # 0.6 103/ul Normal 0.3-0.8 [facility] Comment on above: Performed By: #### F T3, ALT, AST, BMP, TSH, LIPID #### [facility] [address] [place] [address] Dr. Reji Pickett Monocytes/100 WBC (Bld) 10.5 % Normal 1.7-12.0 [facility] Comment on above: Performed By: #### F T3, ALT, AST, BMP, TSH, LIPID #### [facility] [address] [place] [address] Dr. Reji Pcikett NEUT # 2.7 103/ul Normal 1.4-6.5 [facility] Comment on above: Performed By: #### F T3, ALT, AST, BMP, TSH, LIPID #### [facility] [address] [place] [address] Dr. Reji Pickett Neutrophils/100 WBC (Bld) 46.7 % Normal 43.0-75.0 [facility] Comment on above: Performed By: #### F T3, ALT, AST, BMP, TSH, LIPID #### [facility] [address] [place] [address] Dr. Reji Pickett Platelet mean volume (Bld) [Entitic vol] 11.2 fL Normal 9.5-13.5 [facility] Comment on above: Performed By: #### F T3, ALT, AST, BMP, TSH, LIPID #### [facility] [address] [place] [address] Dr. Reji Pickett PLT 242 103/ul Normal 150-450 [facility] Comment on above: Performed By: #### F T3, ALT, AST, BMP, TSH, LIPID #### [facility] [address] [address] [address] Reji Pickett RBC 4.07 106/ul Critically low 4.20-5.40 [facility] Comment on above: Performed By: #### F T3, ALT, AST, BMP, TSH, LIPID #### [facility] [address] [place] [address] Dr. Reji Pickett WBC 5.7 103/ul Normal 4.0-11.0 [facility] Comment on above: Performed By: #### F T3, ALT, AST, BMP, TSH, LIPID #### [facility] [address] [place] [address] Dr. Reji Pickett FREE T3on 10-18-2021 FREE T3 1.91 pg/mlL Critically low 2.18-3.98 [facility] Comment on above: Performed By: #### F T3, ALT, AST, BMP, TSH, LIPID #### [facility] [address] [place] [address] Dr. Reji Pickett FREE T4on 10-18-2021 Free T4 [Mass/Vol] 1.06 ng/dL Normal 0.76-1.46 [facility] Comment on above: Performed By: #### F T4 #### [facility] [address] [place] [address] Dr. Reji Pickett LIPID PROFILEon 10-18-2021 CHOL-HDL RATIO NORM SEE BELOW Normal [facility] Comment on above: Result Comment: 3.3 - 4.4 LOW RISK 4.4 - 7.1 AVERAGE RISK 7.1 - 11.0 MODERATE RISK >11.0 HIGH RISK Performed By: #### F T3, ALT, AST, BMP, TSH, LIPID #### [facility] [address] [place] [address] Dr. Reji Pickett Cholesterol [Mass/Vol] 181 mg/dL Normal <=200 [facility] Comment on above: Performed By: #### F T3, ALT, AST, BMP, TSH, LIPID #### [facility] [address] [place] [address] Dr. Reji Pickett Cholesterol in HDL [Mass/Vol] 69 mg/dL Critically high 40-60 [facility] Comment on above: Performed By: #### F T3, ALT, AST, BMP, TSH, LIPID #### [facility] [address] [address] [address] Reji Pickett Cholesterol in LDL [Mass/Vol] 97.4 mg/dL Normal [facility] Comment on above: Performed By: #### F T3, ALT, AST, BMP, TSH, LIPID #### [facility] [address] [address] [address] Reji Pickett Cholesterol.total/Chol esterol in HDL [Mass ratio] 2.6 {ratio} Normal [facility] Comment on above: Performed By: #### F T3, ALT, AST, BMP, TSH, LIPID #### [facility] [address] [place] [address] Dr. Reji Pickett HDL NORMAL > or = 60 mg/dl - LO W CARDIOVASCULAR RISK <40 mg/dl - HIGH CARDIOVASCULAR RISK Normal [facility] Comment on above: Performed By: #### F T3, ALT, AST, BMP, TSH, LIPID #### [facility] [address] [place] [address] Dr. Reji Pickett LDL CALC NORMAL SEE BELOW Normal [facility] Comment on above: Result Comment: <100 mg/dl OPTIMAL 100 - 129 mg/dl NEAR OR ABOVE OPTIMAL 130 - 159 mg/dl BORDERLINE HIGH 160 - 189 mg/dl HIGH >190 mg/dl VERY HIGH Performed By: #### F T3, ALT, AST, BMP, TSH, LIPID #### [facility] [address] [address] [address] Reji Pickett Triglyceride [Mass/Vol] 73 mg/dL Normal <=150 [facility] Comment on above: Performed By: #### F T3, ALT, AST, BMP, TSH, LIPID #### [facility] [address] [address] [address] Reji Pickett VLDL CALC 14.6 mg/dL Normal [facility] Comment on above: Performed By: #### F T3, ALT, AST, BMP, TSH, LIPID #### [facility] [address] [address] [address] Reji Pickett PROF CHEM 8 (BAS METB)on Anion gap [Moles/Vol] 14.1 mmol/L Normal [facility] Comment on above: Performed By: #### F T3, ALT, AST, BMP, TSH, LIPID #### [facility] [address] [place] [address] Dr. Reji Pickett Calcium [Mass/Vol] 9.1 mg/dL Normal 8.5-10.1 [facility] Comment on above: Performed By: #### F T3, ALT, AST, BMP, TSH, LIPID #### [facility] [address] [place] [address] Dr. Reji Pickett Chloride [Moles/Vol] 105 mmol/L Normal 98-107 [facility] Comment on above: Performed By: #### F T3, ALT, AST, BMP, TSH, LIPID #### [facility] [address] [place] [address] Dr. Reji Pickett CO2 [Moles/Vol] 27.0 mmol/L Normal 21.0-32.0 [facility] Comment on above: Performed By: #### F T3, ALT, AST, BMP, TSH, LIPID #### [facility] [address] [place] [address] Dr. Reji Pickett Creatinine [Mass/Vol] 0.78 mg/dL Normal 0.55-1.02 [facility] Comment on above: Performed By: #### F T3, ALT, AST, BMP, TSH, LIPID #### [facility] [address] [place] [address] Dr. Reji Pcikett EGFR-AF LEBANESE Normal >=60 [facility] Comment on above: Performed By: #### F T3, ALT, AST, BMP, TSH, LIPID #### [facility] [address] [place] [address] Dr. Reji Pickett EGFR-NON AF LEBANESE Normal >=60 [facility] Comment on above: Performed By: #### F T3, ALT, AST, BMP, TSH, LIPID #### [facility] [address] [place] [address] Dr. Reji Pickett Glucose [Mass/Vol] 74 mg/dL Normal 74-106 [facility] Comment on above: Performed By: #### F T3, ALT, AST, BMP, TSH, LIPID #### [facility] [address] [place] [address] Dr. Reji Pickett Potassium [Moles/Vol] 4.1 mmol/L Normal 3.5-5.1 [facility] Comment on above: Performed By: #### F T3, ALT, AST, BMP, TSH, LIPID #### [facility] [address] [place] [address] Dr. Reji Pickett Sodium [Moles/Vol] 142 mmol/L Normal 136-145 [facility] Comment on above: Performed By: #### F T3, ALT, AST, BMP, TSH, LIPID #### [facility] [address] [place] [address] Dr. Reji Pickett Urea nitrogen [Mass/Vol] 15.0 mg/dL Normal 7.0-18.0 [facility] Comment on above: Performed By: #### F T3, ALT, AST, BMP, TSH, LIPID #### [facility] [address] [place] [address] Dr. Reji Pickett Urea nitrogen/Creatinine [Mass ratio] 19.2 mg/mg Normal [facility] Comment on above: Performed By: #### F T3, ALT, AST, BMP, TSH, LIPID #### [facility] [address] [place] [address] Dr. Reji Leyva 10-18-2021 AST [Catalytic activity/Vol] 33 U/L Normal 15-37 [facility] Comment on above: Performed By: #### F T3, ALT, AST, BMP, TSH, LIPID #### [facility] [address] [place] [address] Dr. Reji Lopez 10-18-2021 ALT [Catalytic activity/Vol] 59 U/L Normal 14-59 [facility] Comment on above: Performed By: #### F T3, ALT, AST, BMP, TSH, LIPID #### [facility] [address] [place] [address] Dr. Reji Pickett TSHon 10-18-2021 TSH 1.079 uIU/mL Normal 0.358-3.74 0 [facility] Comment on above: Performed By: #### F T3, ALT, AST, BMP, TSH, LIPID #### [facility] [address] [address] [address] Reji Pickett TSH RANGE SEE BELOW Normal [facility] Comment on above: Result Comment: <0.3 4 UIU/ml HYPERTHYROID 0.34-5.60 UIU/ml EUTHYROID >5.60 UIU/ml HYPOTHYROID Performed By: #### F T3, ALT, AST, BMP, TSH, LIPID #### [facility] [address] [address] [address] Reji Pickett Vital Signs Date Time Vital Sign Value Performing Clinician Facility 04-21-2024 09:00-0500 Body height 161.3 cm Laure Corona [employer] Work Phone: [facility] 04-21-2024 09:00-0500 Body mass index (BMI) [Ratio] 25.21 kg/m2 Laure Chloe [employer] Work Phone: [facility] 04-21-2024 09:00-0500 Body temperature 98.8 [degF] Laure Corona [employer] Work Phone: [facility] 04-21-2024 09:00-0500 Body weight 65.59 kg Laure Corona [employer] Work Phone: [facility] 04-21-2024 09:00-0500 Diastolic blood pressure 82 mm[Hg] Laure Corona [employer] Work Phone: [facility] 04-21-2024 09:00-0500 Heart rate 67 /min Laure Corona [employer] Work Phone: [facility] 04-21-2024 09:00-0500 Respiratory rate 18 /min Laure Corona [employer] Work Phone: [facility] 04-21-2024 09:00-0500 SaO2% (BldA) [Mass fraction] 96 % Laure Aichholz [employer] Work Phone: [facility] 04-21-2024 09:00-0500 Systolic blood pressure 122 mm[Hg] Laure Aichholz [employer] Work Phone: [facility] 01-21-2024 09:22-0400 Body height 161.3 cm Laure Aichholz [employer] Work Phone: [facility] 01-21-2024 09:22-0400 Body mass index (BMI) [Ratio] 25.04 kg/m2 Laure Aichholz [employer] Work Phone: [facility] 01-21-2024 09:22-0400 Body temperature 98.71 [degF] Laure Aichholz [employer] Work Phone: [facility] 01-21-2024 09:22-0400 Body weight 65.14 kg Laure Aichholz [employer] Work Phone: [facility] 01-21-2024 09:22-0400 Diastolic blood pressure 90 mm[Hg] Laure Aichholz [employer] Work Phone: [facility] 01-21-2024 09:22-0400 Heart rate 67 /min Laure Aichholz [employer] Work Phone: [facility] 01-21-2024 09:22-0400 Respiratory rate 18 /min Laure Aichholz [employer] Work Phone: [facility] 01-21-2024 09:22-0400 SaO2% (BldA) [Mass fraction] 95 % Laure Aichholz [employer] Work Phone: [facility] 01-21-2024 09:22-0400 Systolic blood pressure 150 mm[Hg] Laure Aichholz [employer] Work Phone: [facility] 04-25-2023 21:50-0500 Body temperature 97.5 [degF] WATER OPERATOR Candelaria Snellfle Work Phone: [facility] 04-25-2023 21:50-0500 Diastolic blood pressure 71 mm[Hg] WATER OPERATOR Candelaria Saffle Work Phone: [facility] 04-25-2023 21:50-0500 Heart rate 59 /min WATER OPERATOR Candelaria Saffle Work Phone: [facility] 04-25-2023 21:50-0500 Respiratory rate 20 /min WATER OPERATOR Candelaria Saffle Work Phone: [facility] 04-25-2023 21:50-0500 SaO2% (BldA) [Mass fraction] 95 % WATER OPERATOR Candelaria Saffle Work Phone: [facility] 04-25-2023 21:50-0500 Systolic blood pressure 134 mm[Hg] WATER OPERATOR Candelaria Saffle Work Phone: [facility] 04-25-2023 17:23-0500 Body height 162.56 cm WATER OPERATOR Candelaria Saffle Work Phone: [facility] 04-25-2023 17:23-0500 Body weight 63.4 kg WATER OPERATOR Candelaria Humphreye Work Phone: [facility] Encounters Encounter Date Encounter Type Care Provider Facility Start: 06-03-2024 End: 06-03-2024 Refill Laure Corona [employer] Work Phone: [facility] Comment on above: Mixed hyperlipidemia (CMS/HCC) (Primary Dx) Start: 05-28-2024 End: 05-28-2024 Clinisync Result Encounter Laure Corona [employer] Work Phone: [facility] Unsolicited Start: 05-28-2024 End: 05-28-2024 Clinisync Result Encounter Laure Corona [employer] Work Phone: [facility] Unsolicited Start: 05-28-2024 End: 05-28-2024 Orders Only Laure Corona [employer] Work Phone: [facility] Comment on above: Abnormal kidney func tion (Primary Dx); Primary hypertension (CMS/HCC) Start: 05-27-2024 End: 05-27-2024 Clinisync Result Encounter Laure Chloe [employer] Work Phone: [facility] Unsolicited Start: 05-27-2024 End: 05-27-2024 Clinisync Result Encounter Laure Chloe [employer] Work Phone: [facility] Unsolicited Start: 04-21-2024 End: 04-21-2024 Bamboo flowsheet Laure Chloe [employer] Work Phone: [facility] Start: 04-21-2024 End: 04-21-2024 Bamboo flowsheet Laure Chloe [employer] Work Phone: [facility] Start: 04-21-2024 End: 04-21-2024 Office outpatient visit 25 minutes Laurenatalie Corona [employer] Work Phone: [facility] Comment on above: Primary hypertension (CMS/HCC) (Primary Dx); Hypothyroidism, unspecified type (CMS/HCC); Mixed hyperlipidemia (CMS/HCC); TIMOTEO (generalized anxiety disorder) (CMS/HCC); Encounter for screening mammogram for malignant neoplasm of breast; Needs flu shot; Hypothyroidism, unspecified (CMS/HCC); Hyperlipidemia, unspecified (CMS/HCC) Start: 04-21-2024 End: 04-21-2024 ambulatory LAURE CHLOE Not Available Start: 01-21-2024 End: 01-21-2024 Bamboo flowsheet Laure Chloe [employer] Work Phone: [facility] Start: 01-21-2024 End: 01-21-2024 Bamboo flowsheet Laure Chloe [employer] Work Phone: [facility] Start: 01-21-2024 End: 01-21-2024 Office outpatient visit 25 minutes Laurenatalie Corona [employer] Work Phone: [facility] Comment on above: Primary hypertension (CMS/HCC) (Primary Dx); BMI 25.0-25.9,adult; TIMOTEO (generalized anxiety disorder) (CMS/[facility]); Viral upper respiratory tract infection Start: 01-21-2024 [...] Unsolicited Start: 06-24-2023 Bamboo flowsheet Yemi Brink APPLICATION SUPPORT CONSULTANT [facility] Start: 06-24-2023 Bamboo flowsheet Yemi Brink APPLICATION SUPPORT CONSULTANT [facility] Start: 06-24-2023 End: 06-24-2023 ambulatory Yemi Brink APPLICATION SUPPORT CONSULTANT [facility] Comment on above: Radiculopathy affect ing upper extremity (Primary Dx); Lateral epicondylitis of left elbow Start: 06-20-2023 End: 06-20-2023 ambulatory YEMI STERN Not Available Start: 06-18-2023 End: 06-18-2023 ambulatory YEMI STERN Not Available Start: 06-17-2023 End: 06-17-2023 ambulatory LAURE CORONA Not Available Start: 06-17-2023 Patient encounter procedure Yemi Stern APPLICATION SUPPORT CONSULTANT [facility] Start: 06-13-2023 End: 06-13-2023 ambulatory Blanca Pollard APPLICATION SUPPORT CONSULTANT [facility] Comment on above: Radiculopathy affect ing upper extremity (Primary Dx); Lateral epicondylitis of left elbow Start: 06-11-2023 End: 06-11-2023 ambulatory BHAKTI PRASAD Not Available Start: 05-20-2023 End: 05-20-2023 ambulatory LAURE CORONA Not Available Start: 05-01-2023 End: 05-01-2023 ambulatory LAURE CHLOE Not Available Start: 04-25-2023 End: 04-26-2023 Emergency department patient visit Candelaria Falk Facility:[facility] Start: 04-25-2023 End: 04-25-2023 Emergency department patient visit WATER OPERATORChelita Falk Work Phone: [facility] Work Phone: Start: 07-27-2022 End: 07-27-[address] OLU JOHNSON Facility:[facility] Start: 10-31-2021 End: 11-01-[address] OLU JOHNSON Facility:[facility] Start: 10-18-2021 End: 10-19-[address] OLU JOHNSON Facility:[facility] Procedures Date Procedure Procedure Detail Performing Clinician Start: 05-28-2024 TBH UA (CLEAN/CATCH) MICROSCOPIC IF INDICATE Laure Chloe [employer] Work Phone: Start: 05-27-2024 ALL CBC WITH AUTO DIFF Laure Corona [employer] Work Phone: Start: 05-27-2024 Mammography Laure garcía [employer] Work Phone: Start: 06-25-2023 ALL CBC WITH AUTO DIFF Generic External Data Provider Start: 05-22-2023 Mammography Blanca chirinos APPLICATION SUPPORT CONSULTANT Start: 04-25-2023 CT of head without contrast WATER OPERATORChelita Falk Work Phone: Start: 04-25-2023 Plain chest X-ray CECILY Falk Work Phone: Start: 04-25-2023 SARS-CoV-2, Influenz a & RSV (PCR) WATER OPERATORChelita [employer] Work Phone: Start: 12-07-2019 Colonoscopy Blanca chirinos APPLICATION SUPPORT CONSULTANT Plan of Treatment Date Care Activity Detail Author Start: 12-06-2029 Screening for malign ant neoplasm of colon [facility] Start: 05-27-2025 Screening for malign ant neoplasm of breast Mammogram [facility] Start: 08-03-2024 End: 06-03-2025 Alanine aminotransferase [Enzymatic activity/volume] in Serum or Plasma ALT Lab Routine Mixed hyperlipidemia ([facility]/HCC) Expected: 08/03/2024 (Approximate), Expires: 06/03/2025 [facility] Comment on above: Expected: 08/03/2024 (Approximate), Expires: 06/03/2025 Start: 08-03-2024 End: 06-03-2025 Aspartate aminotransferase [Enzymatic activity/volume] in Serum or Plasma AST Lab Routine Mixed hyperlipidemia ([facility]/HCC) Expected: 08/03/2024 (Approximate), Expires: 06/03/2025 [facility] Comment on above: Expected: 08/03/2024 (Approximate), Expires: 06/03/2025 Start: 08-03-2024 End: 06-03-2025 Lipid 1996 panel - Serum or Plasma Lipid panel Lab Routine Mixed hyperlipidemia ([facility]/HCC) Expected: 08/03/2024 (Approximate), Expires: 06/03/2025 [facility] Work Phone: Comment on above: Expected: 08/03/2024 (Approximate), Expires: 06/03/2025 Start: 06-23-2024 End: 06-23-2024 Patient encounter procedure 06/23/2024 10:30 AM EST Office Visit [facility] [address] [place] [id number] Laure Corona NP [address] [place] [address] [facility] Start: 06-18-2024 End: 05-28-2025 Basic metabolic 1998 panel - Serum or Plasma Basic metabolic panel Lab Routine Primary hypertension (CMS/HCC) Abnormal kidney function Expected: 06/18/2024 (Approximate), Expires: 05/28/2025 [facility] Work Phone: Comment on above: Expected: 06/18/2024 (Approximate), Expires: 05/28/2025 Start: 06-17-2024 Medicare Annual Well ness (AWV) Medicare Annual Wellness (AWV) [facility] Start: 05-22-2024 End: 06-22-2025 MG Breast - bilateral Screening Bilateral screening mammogram Imaging Routine Encounter for screening mammogram for malignant neoplasm of breast Expected: 05/22/2024 (Approximate), Expires: 06/22/2025 [facility] Comment on above: Expected: 05/22/2024 (Approximate), Expires: 06/22/2025 Start: 05-22-2024 Screening for malign ant neoplasm of breast Mammogram [facility] Start: 04-21-2024 End: 04-21-2025 CBC W Auto Differential panel - Blood CBC and differential Lab Routine Hypothyroidism, unspecified type (CMS/HCC) Expected: 04/21/2024 (Approximate), Expires: 04/21/2025 [facility] Comment on above: Expected: 04/21/2024 (Approximate), Expires: 04/21/2025 Start: 04-21-2024 End: 04-21-2025 Comprehensive metabolic 2000 panel - Serum or Plasma Comprehensive metabolic panel Lab Routine Primary hypertension (CMS/HCC) Mixed hyperlipidemia (CMS/HCC) Expected: 04/21/2024 (Approximate), Expires: 04/21/2025 [facility] Comment on above: Expected: 04/21/2024 (Approximate), Expires: 04/21/2025 Start: 04-21-2024 End: 04-21-2025 Lipid 1996 panel - Serum or Plasma Lipid panel Lab Routine Mixed hyperlipidemia (CMS/HCC) Expected: 04/21/2024 (Approximate), Expires: 04/21/2025 [facility] Work Phone: Comment on above: Expected: 04/21/2024 (Approximate), Expires: 04/21/2025 Start: 04-21-2024 End: 04-21-2025 Microalbumin/Creatinine panel in random Urine Microalbumin / creatinine, urine ratio Lab Routine Primary hypertension (CMS/HCC) Expected: 04/21/2024 (Approximate), Expires: 04/21/2025 [facility] Comment on above: Expected: 04/21/2024 (Approximate), Expires: 04/21/2025 Start: 04-21-2024 End: 04-21-2025 Thyrotropin [Units/volume] in Serum or Plasma TSH Lab Routine Mixed hyperlipidemia (CMS/HCC) Expected: 04/21/2024 (Approximate), Expires: 04/21/2025 [facility] Comment on above: Expected: 04/21/2024 (Approximate), Expires: 04/21/2025 Start: 04-21-2024 End: 04-21-2025 Thyroxine (T4) free [Mass/volume] in Serum or Plasma T4, free Lab Routine Mixed hyperlipidemia (CMS/HCC) Expected: 04/21/2024 (Approximate), Expires: 04/21/2025 [facility] Comment on above: Expected: 04/21/2024 (Approximate), Expires: 04/21/2025 Start: 04-21-2024 End: 04-21-2025 Urinalysis complete panel - Urine Urinalysis with reflex microscopic (clean catch) Lab Routine Primary hypertension (CMS/HCC) Expected: 04/21/2024 (Approximate), Expires: 04/21/2025 [facility] Comment on above: Expected: 04/21/2024 (Approximate), Expires: 04/21/2025 Start: 04-21-2024 End: 04-21-2024 Patient encounter procedure [facility] Comment on above: Primary hypertension (CMS/HCC) (Primary Dx); Hypothyroidism, unspecified type (CMS/HCC); Mixed hyperlipidemia (CMS/HCC); TIMOTEO (generalized anxiety disorder) (CMS/HCC); Encounter for screening mammogram for malignant neoplasm of breast Start: 01-21-2024 End: 01-21-2024 Patient encounter procedure 01/21/2024 9:20 AM EDT Office Visit [facility] [address] [place] [address] Laure Corona, WASH AND GRE[employer]ER [address] [place] [address] Arrived [facility] Comment on above: Arrived Start: 07-10-2023 End: 07-10-2023 Patient encounter procedure 07/10/2023 9:00 AM EST Office Visit [facility] [address] [place] [address] Laure Corona, [employer] AND [employer]ER [address] [place] [address] [facility] Start: 06-26-2023 End: 06-26-2023 ambulatory [facility] Comment on above: Arrived Start: 06-24-2023 End: 06-24-2023 ambulatory [facility] Comment on above: Arrived Start: 06-20-2023 End: 06-20-2023 ambulatory 06/20/2023 11:30 AM EST Treatment [facility] [address] [place] [address] Yemi Stern, APPLICATION SUPPORT CONSULTANT [facility] Start: 06-18-2023 End: 06-18-2023 ambulatory 06/18/2023 11:30 AM EST Treatment [facility] [address] [place] [address] Yemi Stern, APPLICATION SUPPORT CONSULTANT [facility] Start: 06-17-2023 End: 06-17-2023 Patient encounter procedure 06/17/2023 4:30 PM EST Office Visit [facility] [address] [place] [address] Laure Corona, [employer] AND [employer] [address] [place] [address] [facility] Start: 10-26-2022 Screening for malign ant neoplasm of colon FIT-DNA [facility] Start: 1955 Medicare Annual Well ness (AWV) Medicare Annual Wellness (AWV) [facility] Start: 1955 Screening for malign ant neoplasm of colon [facility] Patient Education Radiculopathy [facility] Work Phone: Patient referral [facility] Work Phone: Immunizations Immunization Date Immunization Notes Care Provider Fa [facility] 04-21-2024 Influenza, injectabl e, [place] Canine Kidney, preservative free, quadrivalent Laure Aichholz [employer] Work Phone: [facility] 02-23-2021 Influenza, High-dose Seasonal, Quadrivalent, Preservative Free Laure Aichholz [employer] Work Phone: [facility] 02-26-2018 influenza, injectabl e, quadrivalent, preservative free Laure Aichholz [employer] Work Phone: [facility] 11-06-2017 zoster vaccine recombinant Laure Aichholz [employer] Work Phone: [facility] 09-04-2017 zoster vaccine recombinant Laure Aichholz [employer] Work Phone: [facility] 02-14-2017 influenza, seasonal, injectable Laure Aichholz [employer] Work Phone: [facility] 03-23-2016 influenza, seasonal, injectable, preservative free Laure Aichholz [employer] Work Phone: [facility] Payers Date Payer Category Payer Private Health Insurance [id number] 2023 Self-pay 2019 Medicare [id number] 1959 Medicare [id number] 1959 Private Health Insurance CLI [id number] 1954 Unknown [id number] 2.16.840.1.912121.3.579.2. 593 1954 Unknown [id number] 2.16.840.1.020164.3.579.2. 593 1954 Unknown [id number] 2.16.840.1.768722.3.579.2. 593 1954 Unknown [id number] 2.16.840.1.968037.3.579.2. 1258 1954 Unknown [id number] 2..840.1.117490.3.579.2. 1258 1954 Unknown [id number] 2.16.840.1.127646.3.579.2. 1258 1954 Unknown [id number] 2.16.840.1.571919.3.579.2. 1258 1954 Unknown [id number] 2.16.840.1.921721.3.579.2. 1258 1954 Unknown [id number] 2.16.840.1.442995.3.579.2. 1258 1954 Unknown [id number] 2.16.840.1.200925.3.579.2. 1258 1954 Unknown [id number] 2.16.840.1.216492.3.579.2. 1258 1954 Unknown [id number] 2.16.840.1.345366.3.579.2. 1258 1954 Unknown [id number] 2.16.840.1.767556.3.579.2. 1258 1954 Unknown [id number] 2.16.840.1.073128.3.579.2. 1258 1954 Unknown [id number] 2.16.840.1.752484.3.579.2. 1258 1954 Unknown [id number] 2.16.840.1.333142.3.579.2. 1258 1954 Unknown [id number] 2.16.840.1.547713.3.579.2. 1258 1954 Unknown [id number] 2.16.840.1.953935.3.579.2. 1258 1954 Unknown [id number] 2.16.840.1.724170.3.579.2. 1258 1954 Unknown [id number] 2.16.840.1.519445.3.579.2. 1258 1954 Unknown [id number] 2.16.840.1.532372.3.579.2. 1258 1954 Unknown [id number] 2.16.840.1.556066.3.579.2. 1259 Unknown [employer] [id number] Unknown [id number] 2.16.840.1.546885.3.579.2. 531 Social History Date Type Detail Facility Start: 04-25-2023 End: 11-13-2023 Tobacco smoking status AZIS Ex-smoker (finding) [facility] Start: 1955 Sex Assigned At Female [facility] End: 05-13-2015 History of tobacco use Current smoker [facility] End: 05-13-2015 History of tobacco use Cigarette Smoker [facility] Start: 05-20-2023 End: 11-13-2023 Tobacco use and exposure Smokeless tobacco non-user [facility] Start: 05-20-2023 End: 06-17-2023 Alcohol intake Current drinker of alcohol (finding) [facility] Start: 05-13-2023 End: 05-20-2023 Alcohol intake [facility] Start: 05-13-2023 End: 06-17-2023 Humiliation, Afraid, Rape, and Kick questionnaire [HARK] [facility] Within the last year , have you been afraid of your partner or ex-partner? No [facility] Frequency of Communication with Friends and Family Not on file [facility] Do you belong to any clubs or organizations such as anabaptism groups, unions, fraternal or athletic groups, or [...] [OSQ] Very much [facility] (I/We) worried emre er (my/our) food would run out before [...] NP - 04/21/2024 9:16 AM ANNALEE KINCAID - 04/21/2024 9:00 AM Liz Corona NP [...] Problem List Items Addressed This Visit Hyperlipidemia ([facility]/HCC) Current med is simvastatin at 40mg daily Check labs yearly and prn dose changes Recommend low fat diet Relevant Orders Lipid panel Comprehensive metabolic panel TSH T4, free Hypothyroidism ([facility]/HCC) Current med is levo at 25mcg Check labs yearly and prn dose changes Relevant Orders CBC and differential Encounter for screening mammogram for malignant neoplasm of breast Relevant Orders Bilateral screening mammogram Primary hypertension ([facility]/HCC) - Primary Please check blood pressure daily [...] Relevant Orders Flu vaccine, MDCK, quadrivalent, PF ([id number]) (Flucelvax single dose syringe) Other Visit Diagnoses [...] were 90's SBP documented in this encounter [facility] 04-21-2024 Instructions Laure Corona NP - 04/21/2024 9:00 AM EST Labs/mammogram : due in mid May 2024 documented in this encounter [facility] 01-21-2024 History of Present illness Narrative Associated [...] in 3 months TIMOTEO (generalized anxiety disorder) (CMS/HCC) Continue current dose of SSRI Fu in 3 months Viral upper respiratory tract infection Mild symptoms, started 2 days ago Recommend treating sxs: antihistamine, throat lozenges, warm salt water gargles, rest, fluids Recommend at home COVID testing as well Will contact office if worsening, or not improving or if positive test NAD documented in this encounter [facility] 06-13-2023 History of Present illness Narrative Physical [...] Evaluation note No assessment inform ation available [facility] Work Phone: Evaluation note Diagnosis Radiculopathy affecting upper extremity- Primary Lateral epicondylitis of left elbow documented in this encounter [facility]* Diagnosis Radiculopathy affecting upper extremity- Primary Lateral epicondylitis of left elbow documented in this encounter [facility]* Diagnosis Radiculopathy affecting upper extremity- Primary Lateral epicondylitis of left elbow documented in this encounter [facility]* Diagnosis Primary hypertension (CMS/HCC)- Primary [...] hypertension (CMS/HCC) Unspecified essential hypertension Primary hypertension ([facility]/HCC)- Primary Unspecified essential hypertension Radiculopathy affecting upper [...] hypertension BMI 25.0-25.9,adult TIMOTEO (generalized anxiety disorder) ([facility]/HCC) Generalized anxiety disorder Viral upper respiratory tract infection Acute upper respiratory infections of unspecified site Primary hypertension (CMS/HCC)- Primary Unspecified essential hypertension Hypothyroidism, unspecified type (CMS/HCC) Mixed hyperlipidemia (CMS/HCC) Mixed hyperlipidemia TIMOTEO (generalized anxiety disorder) ([facility]/HCC) Generalized anxiety disorder Encounter for screening mammogram for malignant neoplasm of breast Needs flu shot Need for prophylactic vaccination and inoculation against influenza Hyperlipidemia, unspecified (CMS/HCC) documented in this encounter [facility]* Diagnosis Primary hypertension (CMS/HCC)- Primary Unspecified essential hypertension BMI 25.0-25.9,adult TIMOTEO (generalized anxiety disorder) ([facility]/HCC) Generalized anxiety disorder Viral upper respiratory tract infection Acute upper respiratory infections of unspecified site documented in this encounter [facility] Healthcare[facility] note* Diagnosis Primary hypertension (CMS/HCC)- Primary Unspecified essential hypertension Lateral epicondylitis of left elbow Radiculopathy affecting upper extremity Radiculopathy affecting upper extremity- Primary Mixed hyperlipidemia (CMS/HCC) Mixed hyperlipidemia Hypothyroidism, unspecified type (CMS/HCC) Primary hypertension ([facility]/HCC) Unspecified essential hypertension Encounter for screening mammogram for malignant neoplasm of breast Lateral epicondylitis of left elbow Encounter for Medicare annual wellness exam- Primary BMI 25.0-25.9,adult Radiculopathy affecting upper extremity Primary hypertension ([facility]/HCC) Unspecified essential hypertension Primary hypertension ([facility]/HCC)- Primary Unspecified essential hypertension Radiculopathy affecting upper extremity BMI 25.0-25.9,adult Acute pain of left shoulder URI, acute Acute upper respiratory infections of unspecified site Primary hypertension ([facility]/HCC) Unspecified essential hypertension Primary hypertension (CMS/HCC)- Primary Unspecified essential hypertension Primary hypertension ([facility]/HCC)- Primary Unspecified essential hypertension TIMOTEO (generalized anxiety disorder) ([facility]/HCC) Generalized anxiety disorder Primary hypertension (CMS/HCC)- Primary Unspecified essential hypertension TIMOTEO (generalized anxiety disorder) ([facility]/HCC) Generalized anxiety disorder Primary hypertension ([facility]/HCC) Unspecified essential hypertension TIMOTEO (generalized anxiety disorder) ([facility]/HCC) Generalized anxiety disorder Primary hypertension ([facility]/HCC)- Primary Unspecified essential hypertension BMI 25.0-25.9,adult TIMOTEO (generalized anxiety disorder) ([facility]/HCC) Generalized anxiety disorder Viral upper respiratory tract infection Acute upper respiratory infections of unspecified site Primary hypertension (CMS/HCC)- Primary Unspecified essential hypertension Hypothyroidism, unspecified type (CMS/HCC) Mixed hyperlipidemia (CMS/HCC) Mixed hyperlipidemia TIMOTEO (generalized anxiety disorder) ([facility]/HCC) Generalized anxiety disorder Encounter for screening mammogram for malignant neoplasm of breast Needs flu shot Need for prophylactic vaccination and inoculation against influenza Hyperlipidemia, unspecified (CMS/HCC) Abnormal kidney function- Primary Nonspecific abnormal results of kidney function study Primary hypertension ([facility]) Unspecified essential hypertension documented in this encounter [facility] HealthcareEvaluation note* Diagnosis Primary hypertension ([facility]/HCC)- Primary Unspecified essential hypertension Lateral epicondylitis of left elbow Radiculopathy affecting upper extremity Radiculopathy affecting upper extremity- Primary Mixed hyperlipidemia ([facility]/HCC) Mixed hyperlipidemia Hypothyroidism, unspecified type ([facility]/HCC) Primary hypertension ([facility]/HCC) Unspecified essential hypertension Encounter for screening mammogram for malignant neoplasm of breast Lateral epicondylitis of left elbow Encounter for Medicare annual wellness exam- Primary BMI 25.0-25.9,adult Radiculopathy affecting upper extremity Primary hypertension ([facility]/HCC) Unspecified essential hypertension Primary hypertension ([facility]/HCC)- Primary Unspecified essential hypertension Radiculopathy affecting upper extremity BMI 25.0-25.9,adult Acute pain of left shoulder URI, acute Acute upper respiratory infections of unspecified site Primary hypertension ([facility]/HCC) Unspecified essential hypertension Primary hypertension ([facility]/HCC)- Primary Unspecified essential hypertension Primary hypertension ([facility]/HCC)- Primary Unspecified essential hypertension TIMOTEO (generalized anxiety disorder) ([facility]) Generalized anxiety disorder Primary hypertension ([facility]/HCC)- Primary Unspecified essential hypertension TIMOTEO (generalized anxiety disorder) ([facility]/HCC) Generalized anxiety disorder Primary hypertension ([facility]) Unspecified essential hypertension TIMOTEO (generalized anxiety disorder) ([facility]) Generalized anxiety disorder Primary hypertension ([facility])- Primary Unspecified essential hypertension BMI 25.0-25.9,adult TIMOTEO (generalized anxiety disorder) ([facility]) Generalized anxiety disorder Viral upper respiratory tract infection Acute upper respiratory infections of unspecified site Primary hypertension ([facility]/HCC)- Primary Unspecified essential hypertension Hypothyroidism, unspecified type ([facility]) Mixed hyperlipidemia ([facility]/HCC) Mixed hyperlipidemia TIMOTEO (generalized anxiety disorder) ([facility]) Generalized anxiety disorder Encounter for screening mammogram for malignant neoplasm of breast Needs flu shot Need for prophylactic vaccination and inoculation against influenza Hyperlipidemia, unspecified (CMS/HCC) Mixed hyperlipidemia ([facility]/HCC)- Primary Mixed hyperlipidemia documented in this encounter [facility] Discharge instructions Additional Instructions Take steroids [...] fevers, chills, unsteady gait or any other concerns[facility] Work Phone: Reason for visit Narrative* Consultation (Routine) - Authorized Specialty Diagnoses / Procedures Referred By Tina voar Referred To Contact Physical Therapy Diagnoses Radiculopathy affecting upper extremity Lateral epicondylitis of left elbow Procedures AL OFFICE/OUTPATIENT NEW HIGH MDM 60 MINUTES Laure Corona, JORDEN [address] [place] [address] Bhakti Prasad, PT [address] [facility] [address] [place] [address] Referral ID Status Reason Start Date Expiration Date Visits Requested Visits Authorized [id number] Authorized Consult and Treat 05/20/2023 11/16/2023 10 10 [facility] Narrative* Consultation (Routine) - Pending Review Specialty Diagnoses / Procedures Referred By Tina vora Referred To Contact Physical Therapy Diagnoses Radiculopathy affecting upper extremity Lateral epicondylitis of left elbow Procedures AL OFFICE/OUTPATIENT NEW HIGH MDM 60 MINUTES Laure Corona NP [address] [place] [address] Bhakti Prasad, PT [address] [facility] [address] [place] [address] Referral ID Status Reason Start Date Expiration Date Visits Requested Visits Authorized [id number] Pending Review Consult and Treat 05/20/2023 11/16/2023 [...] content) DATE CREATED AUTHOR 07/31/2022 [facility] DATE CREATED AUTHOR AUTHOR'S ORGANIZ ATION 05/03/2023 [facility] DATE CREATED AUTHOR AUTHOR'S ORGANIZ ATION 04/24/2024 [facility] Special[facility] EPIC Care Teams (unrecognized sec tion and content) Team Status: Active Member Role Status Dates Olu Johnson MD Primary Care Provider Active Team Status: Inactive Member Role Status Dates Candelaria Falk APRN Emergency Provider Active Olu Johnson MD Primary Care Provider Active Doors Prefitter Relationship Specialty Start Date End Date Olu Johnson MD [address] [place] [address] PCP - General Family Medicine 05/01/23 Laure Corona NP [address] [place] [place] [address] Nurse Practitioner Family Medicine 05/01/23 Doors Prefitter Relationship Specialty Start Date End Date Olu Johnson MD [address] [place] [address] PCP - General Family Medicine 05/01/23 Laure Corona NP [address] [place] [address] Nurse Practitioner Family Medicine 05/01/23 Doors Prefitter Relationship Specialty Start Date End Date Olu Johnson MD [address] [place] [address] PCP - General Family Medicine 05/01/23 Laure Corona NP [address] [place] [address] Nurse Practitioner Family Medicine 05/01/23 Doors Prefitter Relationship Specialty Start Date End Date Olu Johnson MD [address] [place] [address] PCP - General Family Medicine 05/01/23 Laure Corona NP [address] [place] [address] Nurse Practitioner Family Medicine 05/01/23 Doors Prefitter Relationship Specialty Start Date End Date Olu Johnson MD [address] [place] [address] PCP - General Family Medicine 05/01/23 Laure Corona NP [address] [place] [address] Nurse Practitioner Family Medicine 05/01/23 Doors Prefitter Relationship Specialty Start Date End Date Olu Johnson MD [address] [place] [address] PCP - General Family Medicine 07/10/23 Laure Corona NP [address] [place] [address] Nurse Practitioner Family Medicine 05/01/23 Laure Corona NP [address] [place] [address] Nurse Practitioner Family Medicine 07/10/23 Doors Prefitter Relationship Specialty Start Date End Date Olu Johnson MD [address] [place] [address] PCP - General Family Medicine 07/10/23 Laure Corona NP [address] [place] [address] Nurse Practitioner Family Medicine 05/01/23 Laure Corona NP [address] [place] [address] Nurse Practitioner Family Medicine 07/10/23 Doors Prefitter Relationship Specialty Start Date End Date Olu Johnson MD [address] [place] [address] PCP - General Family Medicine 07/10/23 Laure Corona NP [address] [place] [address] Nurse Practitioner Family Medicine 05/01/23 Laure Corona NP [address] [place] [address] Nurse Practitioner Family Medicine 07/10/23 Doors Prefitter Relationship Specialty Start Date End Date Olu Johnson MD [address] [place] [address] PCP - General Family Medicine 07/10/23 Laure Corona NP [address] [place] [address] Nurse Practitioner Family Medicine 05/01/23 Laure Corona NP [address] [place] [address] Nurse Practitioner Family Medicine 07/10/23 Doors Prefitter Relationship Specialty Start Date End Date Olu Johnson MD [address] [place] [address] PCP - General Family Medicine 07/10/23 Laure Corona NP [address] [place] [address] Nurse Practitioner Family Medicine 05/01/23 Laure Corona NP [address] [place] [address] Nurse Practitioner Family Medicine 07/10/23 Doors Prefitter Relationship Specialty Start Date End Date Olu Johnson MD [address] [place] [address] PCP - General Family Medicine 07/10/23 Laure Corona NP [address] [place] [address] Nurse Practitioner Family Medicine 05/01/23 Laure Corona NP [address] [place] [address] Nurse Practitioner Family Medicine 07/10/23 Doors Prefitter Relationship Specialty Start Date End Date Olu Johnson MD [address] [place] [address] PCP - General Family Medicine 07/10/23 Laure Corona NP [address] [place] [address] Nurse Practitioner Family Medicine 05/01/23 Laure Corona NP [address] [place] [address] Nurse Practitioner Family Medicine 07/10/23 Goals (unrecognized [...] BE BASED ON THE PRIMARY CLINICAL RECORDS. [facility] [employer] provides no warranty or guarantee of the accuracy or completeness of information in this document.
[2024-06-22 10:52] LABS: Anion Gap 12.2; BUN Creatinine Ratio 22.5; Calcium 9.3 mg/dL (8.5-10.1); Chloride 103 mmol/L (98-107); Estimated GFR (African America 54 (>=60 mL/min/1.73m^2); Estimated GFR (Non-African Ame 45 (>=60 mL/min/1.73m^2); Glucose 95 mg/dL (74-106); Potassium 4.2 mmol/L (3.5-5.1); Sodium 142 mmol/L (136-145)
== END 2024-06-22 09:49 | disposition home or self-care (01) ==
PROVIDERS: PCP Nurse Practitioner; Visit Provider Nurse Practitioner
DX: N28.9 Disorder of kidney and ureter, unspecified (principal); I10 Essential (primary) hypertension
CPT/HCPCS: 36415; 80048

== ENCOUNTER 2024-09-02 07:40 | Outpatient (OUT) | payer MEDICARE, SELFPAY ==
[2024-09-02 08:30] LABS: Alanine Aminotransferase 41 U/L (14-59); Aspartate Amino Transferase 30 U/L (15-37); Chol HDL Ratio 2.6; Cholesterol 170 mg/dL (<=200); HDL Cholesterol 65 mg/dL (40-60); Triglycerides 70 mg/dL (<=150)
== END 2024-09-02 07:41 | disposition home or self-care (01) ==
LOC: LAB 07:43
PROVIDERS: PCP Nurse Practitioner; Visit Provider Nurse Practitioner
DX: E78.2 Mixed hyperlipidemia (principal)
CPT/HCPCS: 36415; 80061; 84450; 84460

== ENCOUNTER 2024-10-14 07:42 | Outpatient (OUT) | payer MEDICARE, SELFPAY ==
--- OUTSIDE RECORDS SUMMARY | 2024-10-08 09:40 | XMS_ITS | Encounter Summary ---
Author Organization [facility] Address [address] [place] [address] Care Team Providers Care Licensed Clinician Name Role Phone Laure Corona NP Unavailable [phone] Olu Coelho MD Primary Care Provider [phone] Laure Corona QUICK SERVICE TECHNICIAN Unavailable [phone] Laure Corona NP Unavailable [phone] Reason for Referral * Imaging (Routine) - Authorized Specialty Diagnoses / Procedures Referred By Contac t Referred To Contact [facility] Diagnoses Former smoker Procedures CT lung screening low dose Laure Corona NP [address] [place] [address] Phone: tel: fax: [facility] [address] [place] [address] Referral ID Status Reason Start Date Expiration Date V isits Requested Visits Authorized [id number] Authorized 10/08/2024 04/06/2025 1 1 Reason for Visit * Reason Comments Follow-up 3m Encounter Details Date Type Department Care Team (Late st Contact Info) Description 10/08/2024 9:40 AM EDT Office Visit [facility] [address] [place] [address] Laure Corona NP [address] [place] [phone] Primary hypertension (CMS/HCC) (Primary Dx); Hypothyroidism, unspecified type (CMS/HCC); TIMOTEO (generalized anxiety disorder) (CMS/HCC); Abnormal kidney function; Subacute cough; Former smoker Social History Tobacco Use Types Packs/Day Years Used Date Smoking Tobacco: Former Cigarettes Q uit: 2016 Passive Smoke Exposure: Past Smokeless Tobacco: Never Alcohol Use Standard Drinks/Week Comments Never 2 (1 standard drink = 0.6 oz pur e alcohol) caffine: 3cups daily B1300 Health Literacy Answer Date Recor ded How often do you need to hav e someone help you when you read instructions, pamphlets, or other written material from your doctor or pharmacy? Never 06/16/2024 Humiliation, Afraid, Rape, and Kick questionnair e Answer Date Recorded Within the last year, have y ou been afraid of your partner or ex-partner? No 05/13/2023 Within the last year, have y ou been humiliated or emotionally abused in other ways by your partner or ex-partner? No Within the last year, have y ou been kicked, hit, slapped, or otherwise physically hurt by your partner or ex-partner? No 05/13/2023 Within the last year, have y ou been raped or forced to have any kind of sexual activity by your partner or ex-partner? No 05/13/2023 Social Connection and Isolation Panel [NHANES] A nswer Date Recorded In a typical week, how many times do you talk on the phone with family, friends, or neighbors? Three times a week 06/16/2024 How often do you get togethe r with friends or relatives? Twice a week 06/16/2024 How often do you attend chur ch or restorationism services? Never 06/16/2024 Do you belong to any clubs o r organizations such as jainism groups, unions, fraternal or athletic groups, or school groups? No 06/16/2024 How often do you attend meet ings of the clubs or organizations you belong to? Never 06/16/2024 Are you , , di vorced, , never , or living with a partner? 06/16/2024 AUDIT-C Answer Date Recorded Q1: How often do you have a drink containing alc ohol? 2-4 times a month 06/16/2024 Q2: How many drinks containi ng alcohol do you have on a typical day when you are drinking? 1 or 2 06/16/2024 Q3: How often do you have si x or more drinks on one occasion? Less than monthly 06/16/2024 Overall Financial Resource Strain (CARDIA) Answe r Date Recorded How hard is it for you to pa y for the very basics like food, housing, medical care, and heating? Not hard at all 06/16/2024 PHQ-2 Answer Date Recorded Patient Health Questionnaire-2 Score 0 06/23/2024 [facility] - Occupational Stress Questionnaire Answer Date Recorded Do you feel stress - tense, restless, nervous, or anxious, or unable to sleep at night because your mind is troubled all the time - these days? Only a little 06/16/2024 Exercise Vital Sign Answer Date Recorde d On average, how many days pe r week do you engage in moderate to strenuous exercise (like a brisk walk)? 1 day 06/16/2024 On average, how many minutes do you engage in exercise at this level? 30 min 06/16/2024 Hunger Vital Sign Answer Date Recorded Within the past 12 months, y ou worried that your food would run out before you got the money to buy more. Never true 06/16/19 25 Within the past 12 months, t he food you bought just didn't last and you didn't have money to get more. Never true 06/16/2024 PRAPARE - Transportation Answer Date Re corded In the past 12 months, has l ack of transportation kept you from medical appointments or from getting medications? No 08/2024 In the past 12 months, has l ack of transportation kept you from meetings, work, or from getting things needed for daily living? No 06/16/2024 Housing Stability Vital Sign Answer Juan e Recorded In the last 12 months, was t here a time when you were not able to pay the mortgage or rent on time? No 05/13/2023 In the last 12 months, how many places have you lived? 1 05/13/2023 In the last 12 months, was t here a time when you did not have a steady place to sleep or slept in a retirement (including now)? No 05/13/2023 Housing Stability Vital Sign Answer Juan e Recorded In the last 12 months, was t here a time when you were not able to pay the mortgage or rent on time? No 06/16/2024 In the past 12 months, how m any times have you moved where you were living? 0 06/16/2024 At any time in the past 12 m [facility], were you homeless or living in a retirement (including now)? No 06/16/2024 Comments Unknown Sex and Gender Information Value Date Recorded Sex Assigned at Female 05/01/2023 11:48 AM EST Legal Sex Female 10:10 AM EST Gender Identity Female 05/01/2023 11:48 AM EST Sexual Orientation Not on file documented as of this encounter Last Filed Vital Signs Vital Sign Reading Time Taken Comments Blood Pressure 128/80 10/08/2024 9:49 AM EDT Pulse 69 10/08/2024 9:49 AM EDT Temperature 36.4 C (97.5 F) 10/08/2024 9:49 AM EDT Respiratory Rate 22 10/08/2024 9:49 AM EDT Oxygen Saturation 99% 10/08/2024 9:49 AM EDT Inhaled Oxygen Concentration - - Weight 64.9 kg (143 lb) 10/08/2024 9:49 AM EDT Height 160 cm (5' 3 ) 10/08/2024 9:49 AM EDT Body Mass Index 25.33 10/08/2024 9:49 AM EDT documented in this encounter Patient Instructions * Patient Instructions* Laure Corona NP - 10/08/2024 9:40 AM EDT Cough: try using loratadine 10mg daily and flonase nasal spray documented in this encounter Progress Notes * Laure Corona NP - 10/08/2024 10:33 AM EDTAssociated Problem(s): Former smoker Patient meets requirements for low dose CT scan for lung cancer screening: age 55-80, patient is a current smoker or has quit in the last 15 years. Smoking history is > or equal to 30 pack-year. If needed the patient is able or willing to receive treatment. The patient is not currently exhibiting any s/s of lung cancer. We have discussed the benefits as well as harms of screening, follow up testing if needed, false positive rates. We have also discussed that this type of CT scan has less radiation exposure than a traditional lung CT scan. We have also discussed that it is important to follow with annual screening for this. The patient has also been counseled on the importance of smoking cessation. * Laure Corona NP - 10/08/2024 10:29 AM EDTAssociated Problem(s): Subacute cough Usually at night, likely PND Trial OCT loratadine and flonase nasal spray * Laure Corona NP - 10/08/2024 9:40 AM EDT Images from the original note were not included. Edilma Leonardo is a 69 y.o. female presents with chief complaint of Follow-up (3m) HPI: Cough: 2 months, non productive, no blood, no shortness of breath. Used to smoke: quit 2016, after 40 years 1/2 ppd=20 pack years Benadryl helped but knocked her out. No fever chills , does get occ night sweats Hypertension This is a chronic problem. The current episode started more than 1 year ago. The problem is unchanged. The problem is controlled. Associated symptoms include anxiety. Pertinent negatives include no blurred vision, palpitations or peripheral edema. There are no associated agents to hypertension. Risk factors for coronary artery disease include dyslipidemia. Past treatments include RADHA inhibitors and diuretics. The current treatment provides significant improvement. There are no compliance problems. There is no history of CAD/IL, heart failure or PVD. Identifiable causes of hypertension includea thyroid problem. Thyroid Problem Presents for follow-up visit. Patient reports no anxiety, cold intolerance, constipation, depressedmood, diarrhea, fatigue, leg swelling, palpitations, tremors or weight gain. The symptoms have beenstable. There is no history of heart failure. Anxiety Presents for follow-up visit. Patient reports no depressed mood, dizziness, excessive worry, insomnia, muscle tension, nausea, nervous/anxious behavior, palpitations or suicidal ideas. Symptoms occuroccasionally. The severity of symptoms is mild. The quality of sleep is poor (staying with mother in hospice care). Compliance with medications is 76-100%. SUBJECTIVE: MEDICATIONS: Current Outpatient Medications Medication Instructions atorvastatin (LIPITOR) 20 mg, Oral, Nightly hydroCHLOROthiazide (HYDRODIURIL) 25 mg, Oral, Daily levothyroxine (SYNTHROID, LEVOXYL) 25 mcg, Oral, Daily before breakfast lisinopril 20 mg, Oral, Daily sertraline (ZOLOFT) 50 mg, Oral, Daily ALLERGIES: Allergies Allergen Reactions Prednisone High blood pressure Aleve [Naproxen] Swelling and Rash Cephalexin Dizziness and Rash Penicillins Rash REVIEW OF SYMPTOMS: Review of Systems Constitutional: Negative for appetite change, fatigue and weight gain. Eyes: Negative for blurred vision, pain, discharge, redness and visual disturbance. Cardiovascular: Negative for palpitations and leg swelling. Gastrointestinal: Negative for abdominal pain, blood in stool, constipation, diarrhea, nausea and vomiting. Genitourinary: Negative for difficulty urinating, dysuria and frequency. Musculoskeletal: Negative for arthralgias, back pain and joint swelling. Skin: Negative for wound. Neurological: Negative for dizziness, tremors, seizures and syncope. Psychiatric/Behavioral: Negative for behavioral problems, self-injury and suicidal ideas. The patient is not nervous/anxious and does not have insomnia. Hematological: Does not bruise/bleed easily. Endocrine: Negative for cold intolerance, polydipsia, polyphagia and polyuria. Allergic/Immunologic: Negative for food allergies. PAST MEDICAL HISTORY Past Medical History: Diagnosis Date Lateral epicondylitis of left elbow 05/01/2023 Radiculopathy affecting upper extremity 05/01/2023 Past Surgical History: Procedure Laterality Date BLEPHAROPLASTY Bilateral 06/27/2023 CATARACT EXTRACTION Bilateral 2022 family history includes COPD in her mother; HTN in her mother; Stomach cancer in her father. OBJECTIVE: Visit Vitals BP 128/80 Pulse 69 Temp 97.5 ??F Resp 22 Ht 5' 3 Wt 143 lb SpO2 99% BMI 25.33 kg/m?? Smoking Status Former BSA 1.7 m?? Physical Exam Vitals and nursing note reviewed. [...] Normal range of motion and neck supple. Skin: General: Skin is warm and dry. [...] file. Problem List Items Addressed This Visit Hypothyroidism (CMS/HCC) Current med is levo at 25mcg Check labs yearly and prn dose changes Primary hypertension (CMS/HCC) - Primary Please check blood pressure daily and record DASH diet Limit caffeine Take medication as directed Contact office if chest pain, pressure, dizziness, shortness of breath, swelling legs Recommend slow position changes Current meds: lisinopril and hydrochlorothiazide (12.5mg) Relevant Orders Basic metabolic panel TIMOTEO (generalized anxiety disorder) (CMS/HCC) Current med is sertraline at 50mg daily Abnormal kidney function Relevant Orders Basic metabolic panel Subacute cough Usually at night, likely PND Trial OCT loratadine and flonase nasal spray Former smoker Patient meets requirements for low dose CT scan for lung cancer screening: age 55-80, patient is a current smoker or has quit in the last 15 years. Smoking history is > or equal to 30 pack-year. If needed the patient is able or willing to receive treatment. The patient is not currently exhibiting any s/s of lung cancer. We have discussed the benefits as well as harms of screening, follow up testing if needed, false positive rates. We have also discussed that this type of CT scan has less radiation exposure than a traditional lung CT scan. We have also discussed that it is important to follow with annual screening for this. The patient has also been counseled on the importance of smoking cessation. Relevant Orders CT lung screening low dose * Laure Corona NP - 10/08/2024 6:29 AM EDTAssociated Problem(s): TIMOTEO (generalized anxiety disorder) (CMS/HCC) Current med is sertraline at 50mg daily * Laure Corona NP - 10/08/2024 6:29 AM EDTAssociated Problem(s): Hypothyroidism (CMS/HCC) Current med is levo at 25mcg Check labs yearly and prn dose changes * Laure Corona NP - 10/08/2024 6:29 AM EDTAssociated Problem(s): Primary hypertension (CMS/HCC) Please check blood pressure daily and record DASH diet Limit caffeine Take medication as directed Contact office if chest pain, pressure, dizziness, shortness of breath, swelling legs Recommend slow position changes Current meds: lisinopril and hydrochlorothiazide (12.5mg) documented in this encounter Plan of Treatment Upcoming Encounters Date Type Department Care Team (Late st Contact Info) Description 12/09/2024 8:40 AM EDT Office Visit [facility] [address] [place] [address] Laure Corona NP [address] [place] [phone] 06/29/2025 10:00 AM EST Office Visit [facility] [address] [place] [phone] Laure Corona NP [address] [place] [phone] Scheduled Orders Name Type Priority Associated Diagnoses Orde r Schedule Basic metabolic panel Lab Routine Primary hypertension (CMS/HCC) Abnormal kidney function Expected: 10/08/2024 (Approximate), Expires: 10/08/2025 CT lung screening low dose Imaging Routine Former smoker Expected: 10/08/2024, Expires: 10/08/2025 documented as of this encounter Visit Diagnoses Diagnosis Primary hypertension (CMS/HCC)- Primary Unspecified essential hypertension Hypothyroidism, unspecified type (CMS/HCC) TIMOTEO (generalized anxiety disorder) (CMS/HCC) Generalized anxiety disorder Abnormal kidney function Nonspecific abnormal results of kidney function study Subacute cough Former smoker Personal history of tobacco use, presenting hazards to health documented in this encounter Additional Health Concerns Assessment Noted Time PHQ-9 Depression Total Score: 2 06/23/19 25 10:00 AM EST documented as of this encounter Care Teams Licensed Clinician Relationship Specialty Start Date End Date Olu Coelho MD [address] [place] [phone] PCP - General Family Medicine 07/10/23 Laure Corona NP [address] [place] [phone] PCP - ACO Reach 06/19/24 Laure Corona NP [address] [place] [phone] Nurse Practitioner Family Medicine 05/01/23 Laure Corona NP [address] [place] [address] Nurse Practitioner Family Medicine 07/10/23 documented as of this encounter
--- OUTSIDE RECORDS SUMMARY | 2024-10-14 07:45 | XMS_ITS | Encounter Summary ---
Author Organization [facility] Address [address] [place] [address] Care Team Providers Care Insect Control Inspector Name Role Phone Laure Corona TUBING TESTER Unavailable [phone] Olu Coelho MD Primary Care Provider [phone] Laure Corona TUBING TESTER Unavailable [phone] Laure Corona NP Unavailable [phone] Reason for Visit * Reason Comments Med Refill Encounter Details Date Type Department Care Team (Late st Contact Info) Description 04/25/2024 Refill [facility] [address] [place] [address] Laure Corona TUBING TESTER [address] [place] [address] Hypothyroidism, unspecified (CMS/HCC); TIMOTEO (generalized anxiety disorder) (CMS/HCC) ; Hyperlipidemia, unspecified (CMS/HCC) Social History Tobacco Use Types Packs/Day Years Used Date Smoking Tobacco: Former Cigarettes Q uit: 2016 Passive Smoke Exposure: Past Smokeless Tobacco: Never Alcohol Use Standard Drinks/Week Comments Never 2 (1 standard drink = 0.6 oz pur e alcohol) caffine: 3cups daily Humiliation, Afraid, Rape, and Kick questionnair e [...] or ex-partner? No 05/13/2023 Social Connection and Isolat ion Panel [NHANES] Answer Date Recorded In a typical week, how many times do you talk on the phone with family, friends, or neighbors? More than three times a week 06/17/2023 How often do you get togethe r with friends or relatives? Twice a week 06/17/2023 How often do you attend chur ch or jewish services? Never 06/17/2023 Do you belong to any clubs o r organizations such as rastafari groups, unions, fraternal or athletic groups, or school groups? Yes 06/17/2023 How often do you attend meet ings of the clubs or organizations you belong to? 1 to 4 times per year 06/17/2023 Are you , , di vorced, , never , or living with a partner? 06/17/2023 AUDIT-C Answer Date Recorded Q1: How often do you have a drink containing alc ohol? 2-4 times a month 06/17/2023 Average Number of Drinks Not on file 024 Q3: How often do you have si x or more drinks on one occasion? Never 06/17/2023 Overall Financial Resource Strain (CARDIA) Answe r Date Recorded How hard is it for you to pa y for the very basics like food, housing, medical care, and heating? Not hard at all 05/13/2023 PHQ-2 Answer Date Recorded Patient Health Questionnaire-2 Score 1 11/13/2023 [facility] Occupat [facility] - Occupational Stress Questionnaire Answer Date Recorded Do you feel stress - tense, restless, nervous, or anxious, or unable to sleep at night because your mind is troubled all the time - these days? Only a little 06/17/2023 Exercise Vital Sign Answer Date Recorde d On average, how many days pe r week do you engage in moderate to strenuous exercise (like a brisk walk)? 3 days 06/17/2023 On average, how many minutes do you engage in exercise at this level? 90 min 06/17/2023 Hunger Vital Sign Answer Date Recorded Within the past 12 months, y ou worried that your food would run out before you got the money to buy more. Never true 05/13/19 24 Within the past 12 months, t he food you bought just didn't last and you didn't have money to get more. Never true 05/13/2023 PRAPARE - Transportation Answer Date Re corded In the past 12 months, has l ack of transportation kept you from medical appointments or from getting medications? No 05/2023 In the past 12 months, has l ack of transportation kept you from meetings, work, or from getting things needed for daily living? No 05/13/2023 Housing Stability Vital Sign Answer [...] place to sleep or slept in a fci (including now)? No 05/13/2023 Comments Unknown Sex and Gender Information Value Date Recorded Sex Assigned at Female 05/01/2023 11:48 AM EST Legal Sex Female 10:10 AM EST Gender Identity Female 05/01/2023 11:48 AM EST Sexual Orientation Not on file documented as of this encounter Plan of Treatment Upcoming Encounters Date Type Department Care Team (Late st Contact Info) Description 12/09/2024 8:40 AM EDT [facility] Visit [facility] [address] [place] [address] Laure Corona NP [address] [place] [address] 06/29/2025 10:00 AM EST Office Visit [facility] [address] [place] [address] Laure Corona NP [address] [place] [phone] documented as of this encounter Visit Diagnoses Diagnosis Hypothyroidism, unspecified TIMOTEO (generalized anxiety disorder) (CMS/HCC) Generalized anxiety disorder Hyperlipidemia, unspecified (CMS/HCC) documented in this encounter Additional Health Concerns Assessment Noted Time PHQ-9 Depression Total Score: 3 06/17/19 24 5:00 PM EST documented as of this encounter Care Teams Insect Control Inspector Relationship Specialty Start Date End Date Olu Coelho MD [address] [place] [phone] PCP - General Family Medicine 07/10/23 Laure Corona NP [address] [place] [address] PCP - ACO Reach 06/19/24 Laure Corona NP [address] [place] [address] Nurse Practitioner Family Medicine 05/01/23 Laure Corona NP [address] [place] [address] Nurse Practitioner Family Medicine 07/10/23 documented as of this encounter
--- OUTSIDE RECORDS SUMMARY | 2024-10-14 07:45 | XMS_ITS | Clinical Summary ---
Author Organization [facility] [facility] Address [id number] [address] [place] [address] Care Team Providers Care Foreign Student Adviser Name Role Phone JacypremdorothyLaure Dandre TONY-EMERGENCY MANAGEMENT DIRECTOR Primary Care Provider Allergies Active Allergy Reactions Criticality Noted Date Comments Cephalexin Dizziness 11/11/2019 Medications levothyroxine (SYNTHROID, LEVOTHROID) 25 MCG tablet Take 25 mcg by mouth daily. 0 Active lisinopriL (PRINIVIL,ZESTR IL) 10 mg tablet Take 10 mg by mouth daily. 0 Active simvastatin (ZOCOR) 40 mg tablet Take 40 mg by mouth nightly. 0 Active aspirin 81 mg chewable tablet Chew 81 mg and swallow daily. Active mesalamine (ASACOL) 800 mg EC tablet Take 1 tablet (800 mg total) by mouth 3 (three) times a day. 90 tablet 1 0 Active Additional Information Patient not taking.Reported on 01/22/2020 Active Problems No known active problems Family History Medical History Relation Name Comments Cancer Father Esophageal cancer Father Throat cancer Maternal Grandmother Hyperlipidemia Mother Isidra Timmons Hypertension Mother Isidra Timmons Lung cancer Mother Isidra Timmons Relation Name Status Comments Father Maternal Grandmother Mother Isidra Timmons Alive Social History Tobacco Use Types Packs/Day Years Used Date Smoking Tobacco: Former Smokeless Tobacco: Never Alcohol Use Standard Drinks/Week Comments Yes 0 (1 standard drink = 0.6 oz pur e alcohol) SOCIAL Childcare Answer Date Recorded Childcare Unknown 10/22/2018 Employment Answer Date Recorded Employment Unknown 10/22/2018 Purpose - Life Answer Date Recorded Purpose and direction in life Unknown Comments Unknown Sex and Gender Information Value Date Recorded Sex Assigned at Not on file Legal Sex Female 11:31 AM EDT Gender Identity Not on file Sexual Orientation Not on file Last Filed Vital Signs Vital Sign Reading Time Taken Comments Blood Pressure 120/80 01/22/2020 8:24 AM EDT Pulse 79 12/07/2019 8:55 AM EDT Temperature 36.5 C (97.7 F) 01/22/2020 8:24 AM EDT Respiratory Rate 21 12/07/2019 8:55 AM EDT Oxygen Saturation 93% 12/07/2019 8:55 AM EDT Inhaled Oxygen Concentration - - Weight 71.7 kg (158 lb) 01/22/2020 8:24 AM EDT Height 162.6 cm (5' 4 ) 01/22/2020 8:24 AM EDT Body Mass Index 27.12 01/22/2020 8:24 AM EDT Plan of Treatment Health Maintenance Due Date Last Done Comments Depression Screening 1966 Tobacco Screening 1966 Adult BMI Screening 1972 DTaP,Tdap and Td Vaccines (1 - Tdap) 1973 Fall Risk Screening 09/16/2019 Influenza Vaccine 01/11/2025 02/25/2020, , 02/14/2017, Additional history exists Zoster (Shingles) Vaccine Completed 11/06/2017, Medical Devices Not on file Insurance MEDICARE FOR[facility]LY [facility] Care Teams Foreign Student Adviser Relationship Specialty Start Date End Date Laure Corona APRN-EMERGENCY MANAGEMENT DIRECTOR PCP - General Nurse Practitioner 11/05/19
--- OUTSIDE RECORDS SUMMARY | 2024-10-14 07:45 | XMS_ITS | Encounter Summary ---
Author Organization [facility] Address [address] [place] [address] Care Team Providers Care Photographic Spotter Name Role Phone Laure Corona NP Unavailable [phone] Olu Coelho MD Primary Care Provider [phone] Laure Corona POWER REGULATOR Unavailable [phone] Laure Corona NP Unavailable [phone] Encounter Details Date Type Department Care Team (Late st Contact Info) Description 10/08/2024 Bamboo flowsheet [facility] [address] [place] [phone] Laure Corona NP [address] [place] [address] Social History Tobacco Use Types Packs/Day Years [...] often do you attend chur ch or mu-ism services? Never 06/16/2024 Do you belong to any clubs o r organizations such as mandaen groups, unions, fraternal or athletic groups, or [...] Recorded Patient Health Questionnaire-2 Score 0 06/23/2024 [facility] - Occupational Stress [...] place to sleep or slept in a mcfp (including now)? No 05/13/2023 Housing Stability Vital Sign Answer Juan e Recorded In the last 12 months, was t here a time when you were not able to pay the mortgage or rent on time? No 06/16/2024 In the past 12 months, how m any times have you moved where you were living? 0 06/16/2024 At any time in the past 12 m [facility], were you homeless or living in a mcfp (including now)? No 06/16/2024 Comments Unknown Sex [...] 12/09/2024 8:40 AM EDT Office Visit [facility] [address] [place] [address] Laure Corona, JORDEN [address] [place] [phone] 06/29/2025 10:00 AM EST Office Visit [facility] [address] [place] [address] Laure Corona, JORDEN [address] [place] [address] documented as of this encounter Visit Diagnoses Not on filedocumented in this encounter Additional Health Concerns Assessment Noted Time PHQ-9 Depression Total Score: 2 06/23/19 10:00 AM EST documented as of this encounter Care Teams Photographic Spotter Relationship Specialty Start Date End Date Olu Coelho MD [address] [place] [address] PCP - General Family Medicine 07/10/23 Laure Corona NP [address] [place] [address] PCP - ACO Reach 06/19/24 Laure Corona NP [address] [place] [address] Nurse Practitioner Family Medicine 05/01/23 Laure Corona NP [address] [place] [address] Nurse Practitioner Family Medicine 07/10/23 documented as of this encounter
--- OUTSIDE RECORDS SUMMARY | 2024-10-14 07:45 | XMS_ITS | Data Portability ---
Author Organization [place] - [facility] Address [address] [facility] [place] [address] Assessment No assessment recorded. Plan of Treatment Reminders Order Date Submit Date Provider Last Modified By Organization Details Last Modified Time Details Appointments None recorded. Lab None recorded. Referral None recorded. Procedures None recorded. Surgeries None recorded. Imaging None recorded. Medication Orders Augmentin 875 mg-125 mg tablet 2018 019 [id number], [address] [place], [address], 9 09:12:08 Lidocaine Viscous 2 % mucosal solution 2018 019 [id number], [address] [place], [address], 9 09:12:08 fluticason e propionate 50 mcg/actuat ion nasal spray,susp ension 2018 019 [id number], [address] [place], [address], 9 09:12:09 Patient TargetsNo targets recorded. Patient Instructions Encounter Date Encounter Id Patient Instructions Last Modified By Organization Details Last Modified Time 03/19/2019 [id number] Please consult our office promptly if you develop any of the following symptoms: 1. A fever of at least 101 F or 38.4 C 2. Throat pain that is severe or does not start to improve within 5 to 7 days Call for an ambulance or go to the emergency room if you: 1. Have trouble breathing 2. Cannot control your saliva (drooling) due to difficulty swallowing 3. Have swelling of the neck or tongue 4. Cannot move your neck or have trouble opening your mouth [email or web address] Not available 03/19/2019 08:54:04 Reason for Referral None Reported. Problems Name Problem SNOMED Code Status Onset Date Resolution Date Notes Provider Name and Address Organization Details Recorded Time Hyperlipidemia 68608565 Active 2018 [facility] 9 08:57:22 Hypothyroidism 45621066 Active 2018 [facility] 9 08:57:27 Hypertensive disorder 44290741 Active 2018 [facility] 9 08:57:33 Problem Notes None recorded. Medical Equipment None Reported. Allergies Allergen ID Allergen Name Allergen Category Reaction Reaction Severity Criticality Documentation Date Start Date Code Code System Note Provider Name and Address Organization Details Recorded Time 2404 Keflex medicatio n Not available Not available Not available 03/19/2019 11322 7 RxNorm [facility] 9 08:55:12 Medications Name Sig Start Date Stop Date Status Note LastModified by Organization Details LastModified Time Augmentin 875 mg-125 mg tablet Take 1 tablet every 12 hours by oral route for 10 days. 2018 active Not Available Not Available Not Avai lable Lidocaine Viscous 2 % mucosal solution Take 10 mL every 3 hours by oral route as needed for 3 days. 2018 active Not Available Not Available Not Avai lable fluticasone propionate 50 mcg/actuatio n nasal spray,suspen ck [place] 2 sprays every day by intranasal route for 15 days. 2018 active Not Available Not Available Not Avai lable levothyroxin e active Not Available Not Available Not Available simvastatin active Not Available Not A vailable Not Available lisinopril active Not Available Not Av ailable Not Available Vitals Date Recorded Body height Body mass index (BMI) Body weight Heart rate Oxygen saturation Oxygen saturation in Arterial blood by Pulse oximetry Systolic blood pressure Diastolic blood pressure Provider Name and Address Organization Details Last Updated DateTime 9 160.02 cm 26.6 kg/m2 84811.8 6 g 82 /min 95 % 95 % 160 mm[Hg] 92 mm[Hg] Hannah Fan [facility] 9 08:59:12 Social History Question Answer Notes LastModified by Organizat ion Details LastModified Time Tobacco Smoking Status Never Smoker Not Available [facility] 03/15/2020 03:36:47 What Type Of Diet Are You Following? REGULAR [id number] Information not available 03/15/2020 What Was The Date Of Your Most Recent Tobacco Screening? 03/19/2019 [id number] Information not available 03/15/2020 Sex: Unknown Functional Status Question Answer Note LastModified by Organizat ion Details LastModified Time What is your level of alcohol consumption? Occasional socially [id number] Information not available 03/15/2020 Mental Status None recorded. Family History Nothing Reported. Medical History No medical history recorded. Gynecological HistoryNo gynecological history recorded. Obstetrics History GPAL:G 0 P 0 0 0 0 Past Encounters Encounter ID Performer Location Encounter Start Date Encounter Closed Date Diagnosis/Indication Diagnosis SNOMED-CT Code Diagnosis ICD10 Code Diagnosis Note [id number] Corey Dotson PA-C [facility] [address] [place] [address] 03/19/2019 08:46:05 03/19/2019 09:43:00 Acute pharyngitis 094092637 J02.9 Health Concerns Section Related Observation LastModified by Organization Detai ls LastModified Time None Recorded Concern Status LastModified by Organization Details LastModified Time None Recorded Advance Directives Directive None Recorded Payers Encounter Date Sequence Insurance Name Policy Number Policy Mon[place] Covered Member ID [place] Member ID Guarantor Name 03/19/2019 1 [employer] Edilma Romo [id number] Edilma Leonardo Notes Date Note Type Note Provider Name and Address Organization Details Recorded Time 03/19/2019 text/html Sore Throat UCReported bypatient.Onset/T iming:sudden Duration:started 5 day(s) ago Quality:painful;d ifficulty swallowing;laryng itis;symptoms worse during the day Severity:same;mod erate Context:no one else with similar symptoms; recent travel; allergies Alleviating factors:throat lozenges Aggravating factors:talking Associated Symptoms:no fever; no cough; no nausea; no vomiting; no abdominal pain;appetite loss;nasal congestion/discha beto Dotson [facility], [place] - [facility] 03/19/2019 09:16:51 OBGyn Episode No OBEpisode recorded.
--- OUTSIDE RECORDS SUMMARY | 2024-10-14 07:45 | XMS_ITS | Encounter Summary ---
Author Organization [facility] Address [address] [place] [address] Care Team Providers Care Seed Sales Manager Name Role Phone Laure Corona NP Unavailable [phone] Olu Coelho MD Primary Care Provider [phone] Laure Corona COP Unavailable [phone] Laure Corona NP Unavailable [phone] Encounter Details Date Type Department Care Team (Late st Contact Info) Description 11/07/2023 Orders Only [facility] [address] [place] [address] Olu Coelho MD [address] [place] [address] Social History Tobacco Use Types Packs/Day Years Used Date Smoking Tobacco: Former Cigarettes Q uit: 2016 Smokeless Tobacco: Never Alcohol Use Standard Drinks/Week Comments Yes 2 (1 standard drink = 0.6 oz [...] often do you attend chur ch or evangelical services? Never 06/17/2023 Do you belong to any clubs o r organizations such as amish groups, unions, fraternal or athletic groups, or [...] Answer Date Recorded Patient Health Questionnaire-2 Score 2 10/16/2023 [facility] - [...] place to sleep or slept in a long-term (including now)? No 05/13/2023 Comments Unknown Sex [...] Visit [facility] [address] [place] [address] Laure Corona NP [address] [place] [phone] 06/29/2025 10:00 AM EST Office Visit [facility] [address] [place] [address] Laure Corona NP [address] [place] [phone] documented as of this encounter Procedures Procedure Name Priority Date/Time Associated Diagnosis Comments XR CHEST 1 VIEW Routine 11/07/2023 9:27 AM EDT ECG 12-LEAD Routine 11/07/2023 7:[address] HEAD/BRAIN W & WO CONTRAST Routine 11/06/2023 8:04 AM EDT documented in this encounter Results * XR chest 1 view (11/07/2023 9:27 AM EDT) Anatomical Region Laterality Modality Chest Radiographic Naila ging Olu Coelho MD IMG XR PROCEDURES Final Result * ECG 12 lead (11/07/2023 7:47 AM EDT) Olu Coelho MD ECG ORDERABLES Final Result * CT HEAD/BRAIN W & WO CONTRAST (11/06/2023 8:04 AM EDT) Anatomical Region Laterality Modality Radiographic Naila ging [facility] IMG XR PROCEDURES Final Result documented in this encounter Visit Diagnoses Not on filedocumented in this encounter Additional Health Concerns Assessment Noted Time PHQ-9 Depression Total Score: 3 06/17/19 24 5:00 PM EST documented as of this encounter Care Teams Seed Sales Manager Relationship Specialty Start Date End Date Olu Coelho MD [address] [place] [address] PCP - General Family Medicine 07/10/23 Laure Corona NP [address] [place] [address] PCP - ACO Reach 06/19/24 Laure Corona NP [address] [place] [address] Nurse Practitioner Family Medicine 05/01/23 Laure Corona NP [address] [place] [address] Nurse Practitioner Family Medicine 07/10/23 documented as of this encounter
--- OUTSIDE RECORDS SUMMARY | 2024-10-14 07:45 | XMS_ITS | Clinical Summary ---
Author Organization [facility] Address [address] [place] [address] Care Team Providers Care Thermoforming Operator Name Role Phone Laure Corona NP Unavailable [phone] Olu Coelho MD Primary Care Provider [phone] Laure Corona NP Unavailable [phone] Laure Corona NP Unavailable [phone] Allergies Active Allergy Reactions Criticality Noted Date Comments Naproxen Swelling,Rash Low 05/20/2023 Cephalexin Dizziness,Rash Low 11/11/2019 Penicillins Rash Low 05/20/2023 Prednisone 07/10/2023 High blood pressure Medications lisinopril 20 MG tabletIndications:P rimary hypertension (CMS/HCC) Take 1 tablet (20 mg) by mouth Daily 90 tablet 1 4 Active hydroCHLOROthiazide (HYDRODiuril) 25 MG tabletIndications:P rimary hypertension (CMS/HCC) Take 1 tablet (25 mg) by mouth Daily 90 tablet 1 4 Active levothyroxine (Synthroid, Levoxyl) 25 MCG tabletIndications:H ypothyroidism, unspecified Take 1 tablet (25 mcg) by mouth in the morning. Take before meals. 90 tablet 1 4 Active sertraline (Zoloft) 50 MG tabletIndications:G AD (generalized anxiety disorder) (CMS/HCC) Take 1 tablet (50 mg) by mouth Daily 90 tablet 1 4 Active atorvastatin (Lipitor) 20 MG tabletIndications:M ixed hyperlipidemia (CMS/HCC) Take 1 tablet (20 mg) by mouth at bedtime 90 tablet 5 11/02/19 25 Active Active Problems Problem Noted Date Diagnosed Date Subacute cough 10/08/2024 Assessment & Plan (10/08/2024 10:29 AM EDT): Usually at night, likely PND Trial OCT loratadine and flonase nasal spray Former smoker 10/08/2024 Assessment & Plan (10/08/2024 10:33 AM EDT): Patient meets requirements for low dose CT [...] counseled on the importance of smoking cessation. Biceps muscle strain, left, initial encounter Assessment & Plan (06/23/2024 12:13 PM EST): Will monitor for now, recommend OTC muscle rub No def injury, RC appears intact as well as biceps muscle and tendon DD: possible cervical radicuopathy will call if does not get better Abnormal kidney function 05/28/2024 Assessment & Plan (06/23/2024 6:29 AM EST): Labs in 06/06: CR 1.33 BUN 32, and GFR 40, hydrochlorothiazide dose was cut down from 25mg daily to 12.5mg daily 06/22/24: Cr 1.20, BUN 27, GFR 45 Needs flu shot 04/21/2024 Assessment & Plan (04/21/2024 9:16 AM EST): Declines high dose d/t concerns about not tolerating it as sister had difficulty with this Ok for regular dose flu shot NIKIA (generalized anxiety disorder) 10/16/2023 Overview (06/23/2024): 06/23/24: phq 2, nikia 7 =1 Assessment & Plan (10/08/2024 6:29 AM EDT): Current med is sertraline at 50mg daily Assessment & Plan (06/23/2024 11:07 AM EST): Current med is sertraline at 50mg daily NIKIA 7=1 PHQ9=2 Assessment & Plan (04/21/2024 6:28 AM EST): Current med is sertraline at 50mg daily Assessment & Plan (01/21/2024 10:01 AM EDT): Continue current dose of SSRI Fu in 3 months Assessment & Plan (12/18/2023 10:49 AM EDT): Continue dose of sertraline at 50mg Fu in 4 weeks Assessment & Plan (11/13/2023 2:35 PM EDT): Recently started on Zoloft 25 mg. Using it daily for a week. Previously was using it as needed. Patient denies any improvement in her mood. Denies adverse effects. While it is too soon to have any noticeable effect of Zoloft on her mood, 25 mg typically is not a therapeutic dose and since she is tolerating it w/o adverse effects, will increase Zoloft to 50 mg. Follow up in one month to assess response to increased dose. Assessment & Plan (10/16/2023 11:38 AM EDT): After lengthy discussion with pt about life stressors, she is willing to trial an SSRI, I have advised how to take this medication Take medication only as directed. This medication will take approximately 4-6 weeks to become effective. If any suicidal thoughts, thoughts of hurting others, or hallucinations contact the office or proceed to the Emergency Room for mental health evaluation. Medication may cause dry mouth, dizziness, and in some cases worsening in depression symptoms. Please contact the office if these occur. Fu in 4 weeks Acute pain of left shoulder 07/10/2023 Assessment & Plan (07/10/2023 9:31 AM EST): The diagnosis is still evolving Therapy seems to have helped the deriklitis Will refer to Ortho BMI 25.0-25.9,adult 06/17/2023 Primary hypertension 06/17/2023 Assessment & Plan (10/08/2024 6:29 AM EDT): Please check blood pressure daily and record DASH diet Limit caffeine Take medication as directed Contact office if chest pain, pressure, dizziness, shortness of breath, swelling legs Recommend slow position changes Current meds: lisinopril and hydrochlorothiazide (12.5mg) Assessment & Plan (06/23/2024 11:04 AM EST): Please check blood pressure daily and record DASH diet Limit caffeine Take medication as directed Contact office if chest pain, pressure, dizziness, shortness of breath, swelling legs Recommend slow position changes Current meds: lisinopril and hydrochlorothiazide (12.5mg) Assessment & Plan (04/21/2024 9:17 AM EST): Please check blood pressure daily and record DASH diet Limit caffeine Take medication as directed Contact office if chest pain, pressure, dizziness, shortness of breath, swelling legs Recommend slow position changes Current meds: lisinopril and hydrochlorothiazide Home reads 110's since cutting dose down to 20mg W 40mg pressures were 90's SBP Assessment & Plan (01/21/2024 10:01 AM EDT): Home reads primarily in the 110/70 range Occ dizziness with position changes Recommend 20mg BID of lisinopril and then the 25 hydrochlorothiazide Elevated in the office, suspect white coat hypertension as well Fu in 3 months Assessment & Plan (12/18/2023 10:48 AM EDT): Pt is frustrated and overwhelmed with med changes etc At this point we will continue the hydrochlorothiazide at 25mg, and have her take 40mg lisinopril daily, I have advised if she is having dizzy lightheaded spells that she cut it to 20mg BID Continue blood pressure checks daily and prn feeling off I do think she has underlying anxiety as well that make causes fluctuations in her blood pressure We will fu in 4 weeks and go from there Assessment & Plan (11/13/2023 2:33 PM EDT): Recent hospital admission for HTN urgency BP still above goal, on average 140-150/90/100 Started on hydrochlorothiazide upon discharge from hospital and coreg increased to 6.25 q12. Currently on Lisinopril 20 q12, hydrochlorothiazide 25, Coreg 6.25 Norvasc was previously discontinued due to LE edema. Add imdur. Patient counseled and educated on adverse effects, drug interactions and to reach out to office/pharmacy if questions or concerns related to new medications. Patient asked to spread out her BP medications. BMP in one week as hydrochlorothiazide was recently started and we need to monitor electrolytes and renal function while on it. Assessment & Plan (10/16/2023 11:37 AM EDT): Swelling resolved after stopping her amlodipine Will add carvedilol at 3.125mg BID Fu in 4 weeks Assessment & Plan (09/23/2023 9:19 AM EDT): C/O swelling mostly to RLE, possible side effect of her CCB Will stop her amlodipine, cont BP checks and fu in 4 weeks, if home reads greater than 160/90 call office and we will add another medication Assessment & Plan (08/21/2023 10:02 AM EDT): Reports is feeling dizziness, and fatigued Home reads 100/s Systolic Will trial lower dose on amlodipine to 2.5mg And cont lisinopril 20mg twice daily, but move PM dose to supper time Fu in 3 weeks with readings and blood pressure cough Assessment & Plan (07/10/2023 9:11 AM EST): Continue with current meds, doing much better Assessment & Plan (06/17/2023 5:38 PM EST): Is concerned at taking lisinopril 20mg BID , has only been taking this once a day Have her try 10mg dose at evening time Will come back tomorrow w her wrist cuff and we recheck Encounter for Medicare annual wellness exam 09/2023 Assessment & Plan (06/23/2024 6:26 AM EST): Reviewed Ht/Wt/BMI Recommend eye exam yearly Recommend dental exams twice a year Balance work/leisure activities Exercises is recommended most days of the week (appropriate as chronic conditions allow) Follow up yearly and prn Assessment & Plan (06/17/2023 5:39 PM EST): Reviewed Ht/Wt/BMI Recommend eye exam yearly Recommend dental exams twice a year Balance work/leisure activities Exercises is recommended most days of the week (appropriate as chronic conditions allow) Follow up yearly and prn Encounter for screening mamm ogram for malignant neoplasm of breast 05/20/2023 Lateral epicondylitis of left elbow 05/01/2023 Assessment & Plan (05/20/2023 10:32 AM EST): Cannot take NSAID as she has an upcoming eye surgery and no NSAIDs Will provide w T #3 to use if severe pain Assessment & Plan (05/01/2023 12:54 PM EST): Trial tennis elbow strap to affected extremity Possible still was some degree of radiculopathy, will need to obtain [facility] notes and etc Radiculopathy affecting upper extremity 05/01/20 23 Assessment & Plan (07/10/2023 9:30 AM EST): No longer with NT Assessment & Plan (06/17/2023 5:36 PM EST): Continue with PT Does appear to be improving Fu in a few weeks if not resolved consider MRI Assessment & Plan (05/20/2023 10:32 AM EST): Will order PT, fu in 6 weeks if not better consider EMG or LUE or MRI Assessment & Plan (05/01/2023 12:56 PM EST): Diagnosis given in the ER Hyperlipidemia 03/19/2019 Assessment & Plan (04/21/2024 6:27 AM EST): Current med is simvastatin at 40mg daily Check labs yearly and prn dose changes Recommend low fat diet Hypothyroidism 03/19/2019 Assessment & Plan (10/08/2024 6:29 AM EDT): Current med is levo at 25mcg Check labs yearly and prn dose changes Assessment & Plan (06/23/2024 6:25 AM EST): Current med is levo at 25mcg Check labs yearly and prn dose changes Assessment & Plan (04/21/2024 6:27 AM EST): Current med is levo at 25mcg Check labs yearly and prn dose changes Resolved Problems Problem Noted Date Diagnosed Date Resolved Date Viral upper respiratory tract infection 01/21/2024 04/21/2024 Assessment & Plan (01/21/2024 10:03 AM EDT): Mild symptoms, started 2 days ago Recommend treating sxs: antihistamine, throat lozenges, warm salt water gargles, rest, fluids Recommend at home COVID testing as well Will contact office if worsening, or not improving or if positive test NAD URI, acute 07/10/2023 12/18/2023 Assessment & Plan (07/10/2023 9:33 AM EST): Non toxic, does not appear in acute distress Will trial OTC loratadine Will send in z pack if symptoms worsen, had recent eye lid surgery which also causing a lot of sinus pressure Hypertensive disorder 03/19/20192023 Assessment & Plan (05/20/2023 10:31 AM EST): Went back to 1 lisinopril daily blood pressure reads look good Assessment & Plan (05/01/2023 12:52 PM EST): At this point her last 2 visits in old EHR DBP 100's We will increase lisinopril 20mg BID Continue at home reads Fu in 2 weeks Encounters Date Type Department Care Team Description 10/08/2024 9:40 AM EDT Office Visit [facility] [address] [place] [address] Laure Corona NP Primary hypertension (CMS/HCC) (Primary Dx); Hypothyroidism, unspecified type (CMS/HCC); NIKIA (generalized anxiety disorder) (CMS/HCC); Abnormal kidney function; Subacute cough; Former smoker 10/08/2024 Bamboo flowsheet [facility] [address] [place] [address] Laure Corona NP 10/07/2024 Travel 09/02/2024 Results Follow-Up [facility] [address] [place] [address] 09/02/2024 Clinisync Result Encounter [facility] External Department Unsolicited Laure Corona NP 08/01/2024 Refill [facility] [address] [place] [address] Laure Corona NP Mixed hyperlipidemia (CMS/HCC) from Last 3 Months Immunizations Immunization Administration Dates Next Due Influenza, High-dose Seasona l, Quadrivalent, Preservative Free 02/23/2021 Influenza, injectable, MDCK, preservative free, quadrivalent 04/21/2024 Influenza, injectable, quadrivalent, preservativ e free 02/26/2018 Influenza, seasonal, injectable 02/14/2017 Influenza, seasonal, injectable, preservative fr ee 03/23/2016 Zoster, Recombinant 11/06/2017,09/04/2017 Family History Medical History Relation Name Comments Stomach cancer Father COPD Mother HTN Mother Relation Name Status Comments Father Mother Alive Social History Tobacco Use Types Packs/Day Years Used Date Smoking Tobacco: Former Cigarettes Q uit: 2016 Passive Smoke Exposure: Past Smokeless Tobacco: Never Tobacco Cessation:Counseling Given: No Alcohol Use Standard Drinks/Week Comments Never 2 [...] often do you attend chur ch or denominational services? Never 06/16/2024 Do you belong to any clubs o r organizations such as anglican groups, unions, fraternal or athletic groups, or [...] Recorded Patient Health Questionnaire-2 Score 0 06/23/2024 [facility] of Occupat ional Health - Occupational Stress [...] place to sleep or slept in a mcc (including now)? No 05/13/2023 Housing Stability Vital Sign Answer Juan e Recorded In the last 12 months, was t here a time when you were not able to pay the mortgage or rent on time? No 06/16/2024 In the past 12 months, how m any times have you moved where you were living? 0 06/16/2024 At any time in the past 12 m [facility], were you homeless or living in a mcc (including now)? No 06/16/2024 Comments Unknown Sex and Gender Information Value Date Recorded Sex Assigned at Female 05/01/2023 11:48 AM EST Legal Sex Female 10:10 AM EST Gender Identity Female 05/01/2023 11:48 AM EST Sexual Orientation Not on file Last Filed [...] Mass Index 25.33 10/08/2024 9:49 AM EDT Plan of Treatment Upcoming Encounters Date Type Department Care Team (Late st Contact Info) Description 12/09/2024 8:40 AM EDT Office Visit [facility] [address] [place] [address] Laure Corona, JORDEN [address] [place] [address] 06/29/2025 10:00 AM EST Office Visit [facility] [address] [place] [address] Laure Corona NP [address] [place] [phone] Health Maintenance Due Date Last Done Comments CT Colonography 1955 FIT 1955 FOBT 1955 Sigmoidoscopy 1955 FIT-DNA 10/26/2022 10/27/2019 Mammogram 05/27/2025 05/27/2024, 05/13, 05/22/2023, Additional history exists Medicare Annual Wellness (AWV) 06/23/2025 0 06/23/2024, 06/17/2023, 06/17/2023 Colonoscopy 12/06/2029 12/07/2019 Colorectal Cancer Screening 12/06/2029 Influenza Vaccine Discontinued 04/21/2024, , 02/26/2018, Additional history exists Pneumococcal Vaccine: 65+ Years Discontinued Procedures Procedure Name Priority Date/Time Associated Diagnosis Comments ALL LIPID PROFILE (FASTING) Routine 09/02/2024 7:50 AM EDT [facility] ALT Routine 09/02/2024 7:50 AM EDT [facility] AST Routine 09/02/2024 7:50 AM EDT MM TOMOSYNTHESIS SCREENING BI 05/27/2024 10:02 AM EST from Last 3 Months or Most Recently Relevant to Health Maintenance Results * [facility] AST (09/02/2024 7:50 AM EDT) ASPARTATE AMINO TRANSFERASE 30 15 - 37 U/L TB 09/02/2024 7:50 AM EDT 09/02/2024 7:53 AM EDT Narrative CLINISYNC - 09/02/2024 8:31 AM EDT us Laure Corona NP CLINISYNC Final Result CLINISYNC TB * [facility] ALT (09/02/2024 7:50 AM EDT) ALANINE AMINOTRANSFERASE 41 14 - 59 U/L TB 09/02/2024 7:50 AM EDT 09/02/2024 7:53 AM EDT Narrative CLINISYNC - 09/02/2024 8:31 AM EDT us Laure Corona NP CLINISYNC Final Result Performing Organization Address [facility] Co de Phone Number CLINISYNC [facility] * (ABNORMAL) ALL LIPID PROFILE (FASTING) (09/02/2024 7:50 AM EDT) TRIGLYCERIDES 70 <=150 mg/dL TBH CHOLESTEROL 170 <=200 mg/dL TBH HDL CHOLESTEROL 65(H) 40 - 60 mg/dL TB Comment: > or =60 mg/dl - LOW CARDIOVASCULAR RISK <40 mg/dl - HIGH CARDIOVASCULAR RISK LDL CHOLESTEROL CALCULATED 91.0 mg/dL TB Comment: <100 mg/dl OPTIMAL 100-129 mg/dl NEAR OR ABOVE OPTIMAL 130-159 mg/dl BORDERLINE HIGH 160-189 mg/dl HIGH >190 mg/dl VERY HIGH VLDL CHOLESTEROL 14.0 mg/dL TB CHOL HDL RATIO 2.6 TB Comment: 3.3 - 4.4 LOW RISK 4.4 - 7.1 AVERAGE RISK 7.1 - 11.0 MODERATE RISK >11.0 HIGH RISK 09/02/2024 7:50 AM EDT 09/02/2024 7:53 AM EDT Narrative CLINISYNC - 09/02/2024 8:31 AM EDT us Laure Corona NP CLINISYTENISHA Final Result Performing Organization Address [facility] Phone Number [facility] * MM TOMOSYNTHESIS SCREENING BI (05/27/2024 10:02 AM EST) Anatomical Region Laterality Modality Other 05/27/2024 10:0 2 AM EST Narrative 05/27/2024 10:03 [place] [address] Mammography Report Signed Patient: EDILMA LEONARDO MR#: [id number] : 1955 Acct:[id number] Age/Sex: 68 / F ADM Date: 05/27/24 Loc: MAMMO Attending Dr: Laure Corona NP Ordering Physician: Laure Corona NP Results: Date of Service: 05/27/24 Follow Up: Procedure(s): MM tomosynthesis screening BI Accession Number(s): [id number] cc: Laure Corona BATHHOUSE ATTENDANT Patient Name: EDILMA LEONARDO MR#: [id number] : 1955 Exam Date: 05/27/2024 Ordering Doctor: RAFIA Corona CNP RADIOLOGY REPORT PROCEDURE: MM TOMOSYNTHESIS SCREENING BI COMPARISON: MG MAMM SCREEN 3D TACO CAD, 10/31/2021. MM TOMOSYNTHESIS SCREENING BI, 05/22/2023. INDICATIONS: Screening Calculator Name NCI Breast Cancer Risk Assessment Tool 5 Year Breast Cancer Risk 1.40% Lifetime Breast Cancer Risk 4.30% Personal Breast Cancer No Personal Ovarian Cancer No Treatments None Family Cancers Grandmother-maternal with throat cancer at age 60; Mother with lung cancer at age 82; Father with throat cancer at age 82. LOCATION: [facility] BREAST COMPOSITION: The breasts are heterogeneously dense,which may obscure small masses. FINDINGS: DIAGNOSTIC [...] PALPABLE LUMP SHOULD BE BIOPSIED. Dictated by: Alessandro Unger MD on 05/27/2024 at 09:55 Approved by: Alessandro Unger MD on 05/27/2024 at 10:02 Dictated By: Alessandro Unger M.D. Signed By: 05/27/24 1003 DD/ 1002 TD/TT: Pecan Picker: Procedure Note Radiology, Radiologist, - 05/27/20[address] [place] [address] Mammography Report Signed Patient: EDILMA LEONARDO LMR#: [id number] : 5Acct:[id number] Age/Sex: 68 / FADM Date: 05/27/24 Loc: MAMMO Attending Dr: Laure Corona NP Ordering Physician: Laure Corona NPResults: Date of Service: 05/27/24Follow Up: Procedure(s): MM tomosynthesis screening BI Accession Number(s): [id number] cc: Laure Corona NP Patient Name: EDILMA LEONARDO MR#: [id number] : 1955 Exam Date: 05/27/2024 Ordering Doctor: RAFIA Corona CNP RADIOLOGY REPORT PROCEDURE: MM TOMOSYNTHESIS SCREENING BI COMPARISON: MG MAMM SCREEN 3D TACO CAD, 10/31/2021. MM TOMOSYNTHESIS SCREENING BI, 05/22/2023. INDICATIONS: Screening Calculator Name NCI Breast Cancer Risk Assessment Tool 5 Year Breast Cancer Risk 1.40% Lifetime Breast Cancer Risk 4.30% Personal Breast Cancer No Personal Ovarian Cancer No Treatments None Family Cancers Grandmother-maternal with throat cancer at age 60; Mother with lung cancer at age 82; Father with throat cancer at age 82. LOCATION: [facility] BREAST COMPOSITION: The breasts are heterogeneously dense,which may obscure small masses. FINDINGS: DIAGNOSTIC CATEGORY 1--NEGATIVE. NO CHANGE FROM COMPARISON ASSESSMENT. Scattered benign-appearing calcifications are present. Scattered benign-appearing lymph nodes are present. RIGHT BREAST: No significant suspicious finding. LEFT BREAST: No significant suspicious finding. RECOMMENDATIONS: ROUTINE MAMMOGRAM AND CLINICAL EVALUATION IN 12 MONTHS. PLEASE NOTE: A NORMAL MAMMOGRAM DOES NOT EXCLUDE THE POSSIBILITY OFBREAST CANCER. A CLINICALLY SUSPICIOUS PALPABLE LUMP SHOULD BE BIOPSIED. Dictated by: Alessandro Unger MD on 05/27/2024 at 09:55 Approved by: Alessandro Unger MD on 05/27/2024 at 10:02 Dictated By: Alessandro Unger M.D. Signed By:05/27/24 1003 DD/ 1002 TD/TT: Pecan Picker: Laure Corona NP CLINISYNC IMAGING Final Result from Last 3 Months or Most Recently Relevant to Health Maintenance Insurance MEDICARE [employer] Care Teams Thermoforming Operator Relationship Specialty Start Date End Date Olu Coelho MD [address] [place] [phone] PCP - General Family Medicine 07/10/23 Laure Corona NP [address] [place] [phone] PCP - ACO Reach 06/19/24 Laure Corona NP [address] [place] [phone] Nurse Practitioner Family Medicine 05/01/23 Laure Corona NP [address] [place] [phone] Nurse Practitioner Family Medicine 07/10/23
--- OUTSIDE RECORDS SUMMARY | 2024-10-14 07:45 | XMS_ITS | Encounter Summary ---
Author Organization [facility] Address [address] [place] [address] Care Team Providers Care Transitional Kindergarten Teacher Name Role Phone Laure Corona NP Unavailable [phone] Olu Coelho MD Primary Care Provider [phone] Laure Corona NP Unavailable [phone] Laure Corona NP Unavailable [phone] Encounter Details Date Type Department Care Team (Late st Contact Info) Description 09/02/2024 Results Follow-Up [facility] [address] [place] [address] Social History Tobacco Use Types Packs/Day Years [...] often do you attend chur ch or sikhism services? Never 06/16/2024 Do you belong to any clubs o r organizations such as mu-ism groups, unions, fraternal or athletic groups, or [...] Recorded Patient Health Questionnaire-2 Score 0 06/23/2024 [facility] of Occupat ional Health - Occupational Stress [...] any time in the past 12 m [facility], were you homeless or living in [...] Visit [facility] [address] [place] [address] Laure Corona NP [address] [place] [phone] 06/29/2025 10:00 AM EST Office Visit [facility] [address] [place] [address] Laure Corona NP [address] [place] [phone] documented as of this encounter Visit Diagnoses Not on filedocumented in this encounter Additional Health Concerns Assessment Noted Time PHQ-9 Depression Total Score: 2 06/23/19 10:00 AM EST documented as of this encounter Care Teams Transitional Kindergarten Teacher Relationship Specialty Start Date End Date Olu Coelho MD [address] [place] [phone] PCP - General Family Medicine 07/10/23 Laure Corona NP [address] [place] [phone] PCP - ACO Reach 06/19/24 Laure Corona NP [address] [place] [phone] Nurse Practitioner Family Medicine 05/01/23 Laure Corona NP [address] [place] [phone] Nurse Practitioner Family Medicine 07/10/23 documented as of this encounter
--- OUTSIDE RECORDS SUMMARY | 2024-10-14 07:45 | XMS_ITS | Encounter Summary ---
Author Organization [facility] Address [address] [place] [address] Care Team Providers Care Database Manager Name Role Phone Laure Corona NP Unavailable [phone] Olu Coelho MD Primary Care Provider Laure Corona NP Unavailable [phone] Laure Corona NP Unavailable [phone] Encounter Details Date Type Department Care Team (Late st Contact Info) Description 05/27/2024 Clinisync Result Encounter [facility] External Department Unsolicited Laure Corona, SPOOLING OPERATOR [address] [place] [phone] Social History Tobacco Use Types Packs/Day Years [...] 06/17/2023 How often do you attend chur or holiness services? Never 06/17/2023 Do you belong to any clubs o r organizations such as alevism groups, unions, fraternal or athletic groups, or [...] Recorded Patient Health Questionnaire-2 Score 1 11/13/2023 [facility] - Occupational Stress [...] place to sleep or slept in a residential (including now)? No 05/13/2023 Comments Unknown Sex [...] Visit [facility] [address] [place] [address] Laure Corona NP [address] [place] [phone] 06/29/2025 10:00 AM EST Office Visit [facility] [address] [place] [phone] Laure Corona NP [address] [place] [phone] documented as of this encounter Procedures Procedure Name Priority Date/Time Associated Diagnosis Comments MM TOMOSYNTHESIS SCREENING BI 05/27/2024 10:02 AM EST documented in this encounter Results * MM TOMOSYNTHESIS SCREENING BI (05/27/2024 10:02 AM EST) Anatomical Region Laterality Modality Other 05/27/2024 10:0 2 AM EST Narrative 05/27/2024 10:03 [place] [address] Mammography Report Signed Patient: EDILMA LEONARDO MR#: [id number] : 1955 Acct:[id number] Age/Sex: 68 / F ADM Date: 05/27/24 Loc: MAMMO Attending Dr: Laure Corona NP Ordering Physician: Laure Corona NP Results: Date of Service: 05/27/24 Follow Up: Procedure(s): MM tomosynthesis screening BI Accession Number(s): [id number] cc: Laure Corona NP Patient Name: EDILMA LEONARDO MR#: [id number] : 1955 Exam Date: 05/27/2024 Ordering Doctor: [...] throat cancer at age 81. LOCATION: [facility] BREAST COMPOSITION: The breasts are heterogeneously [...] Signed By: 05/27/24 1003 DD/ 1002 TD/TT: Wind Energy Project Manager: Procedure Note Radiology, Radiologist, MD - 05/27/2024 [place] [address] Mammography Report Signed Patient: EDILMA LEONARDO LMR#: [id number] : 5Acct:[id number] Age/Sex: 68 / FADM Date: 05/27/24 Loc: MAMMO Attending Dr: Laure Corona NP Ordering Physician: Laure Corona NPResults: Date of Service: 05/27/24Follow Up: Procedure(s): MM tomosynthesis screening BI Accession Number(s): [id number] cc: Laure Corona NP Patient Name: EDILMA LEONARDO MR#: [id number] : 1955 Exam Date: 05/27/2024 Ordering Doctor: [...] throat cancer at age 81. LOCATION: [facility] BREAST COMPOSITION: The breasts are heterogeneously [...] M.D. Signed By:05/27/24 1003 DD/ 1002 TD/TT: Wind Energy Project Manager: us Laure Corona NP [facility] Final Result documented in this encounter Visit Diagnoses Not on filedocumented in this encounter Additional Health Concerns Assessment Noted Time PHQ-9 Depression Total Score: 3 06/17/19 24 5:00 PM EST documented as of this encounter Care Teams Database Manager Relationship Specialty Start Date End Date Olu Coelho MD [address] [place] [address] PCP - General Family Medicine 07/10/23 Laure Corona NP [address] [place] [phone] PCP - ACO Reach 06/19/24 Laure Corona NP [address] [place] [address] Nurse Practitioner Family Medicine 05/01/23 Laure Corona NP [address] [place] [phone] Nurse Practitioner Family Medicine 07/10/23 documented as of this encounter
--- OUTSIDE RECORDS SUMMARY | 2024-10-14 07:45 | XMS_ITS | Encounter Summary ---
Author Organization [facility] Address [address] [place] [address] Care Team Providers Care 1St Grade Teacher Name Role Phone Laure Corona NP Unavailable [phone] Olu Coelho MD Primary Care Provider [phone] Olu Coelho MD Primary Care Provider [phone] Laure Corona NP Unavailable [phone] Laure Corona NP Unavailable [phone] Encounter Details Date Type Department Care Team (Late st Contact Info) Description 05/22/2023 Clinisync Result Encounter [facility] External Department Unsolicited Laure Corona, JORDEN [address] [place] [address] Social History Tobacco Use Types Packs/Day Years [...] Isolation Panel [NHANES] A nswer Date Recorded Frequency of Communication w ith Friends and Family Not on file 05/13/2023 How often do you get togethe r with friends or relatives? Twice a week 05/13/2023 How often do you attend chur ch or zoroastrianism services? Never 05/13/2023 Do you belong to any clubs o r organizations such as hinduism groups, unions, fraternal or athletic groups, or school groups? Yes 05/13/2023 How often do you attend meet ings of the clubs or organizations you belong to? 1 to 4 times per year 05/13/2023 Are you , , di vorced, , never , or living with a partner? 05/13/2023 AUDIT-C Answer Date Recorded Q1: How often do you have a drink containing alc ohol? 2-4 times a month 05/13/2023 Q2: How many drinks containi ng alcohol do you have on a typical day when you are drinking? 3 or 4 05/13/2023 Q3: How often do you have si x or more drinks on one occasion? Less than monthly 05/13/2023 Overall Financial Resource Strain (CARDIA) Answe r Date Recorded How hard is it for you to pa y for the very basics like food, housing, medical care, and heating? Not hard at all 05/13/2023 [facility] - Occupational Stress Questionnaire Answer Date Recorded Do you feel stress - tense, restless, nervous, or anxious, or unable to sleep at night because your mind is troubled all the time - these days? Very much 05/13/2023 Exercise Vital Sign Answer Date Recorde d On average, how many days pe r week do you engage in moderate to strenuous exercise (like a brisk walk)? 2 days 05/13/2023 On average, how many minutes do you engage in exercise at this level? 70 min 05/13/2023 Hunger Vital Sign Answer Date Recorded Within [...] in a retirement (including now)? No 05/13/2023 Comments Unknown Sex [...] Office Visit [facility] [address] [place] [address] Laure Corona NP [address] [place] [phone] 06/29/2025 10:00 AM EST Office Visit [facility] [address] [place] [address] Laure Corona NP [address] [place] [phone] documented as of this encounter Procedures Procedure Name Priority Date/Time Associated Diagnosis Comments MM TOMOSYNTHESIS SCREENING BI 05/22/2023 10:38 AM EST documented in this encounter Results * MM TOMOSYNTHESIS SCREENING BI (05/22/2023 10:38 AM EST) Anatomical Region Laterality Modality Other 05/22/2023 10:3 8 AM EST Narrative 05/22/2023 10:39 [place] [address] Mammography Report Signed Patient: EDILMA LEONARDO MR#: [id number] : 1955 Acct:[id number] Age/Sex: 67 / F ADM Date: 05/22/23 Loc: MAMMO Attending Dr: Laure Corona NP Ordering Physician: Laure Coorna NP Results: Date of Service: 05/22/23 Follow Up: Procedure(s): MM tomosynthesis screening BI Accession Number(s): [id number] cc: Laure Corona NP; Olu Coelho M.D. Patient Name: EDILMA LEONARDO MR#: [id number] : 1955 Exam Date: 05/22/2023 Ordering Doctor: RAFIA Corona CNP RADIOLOGY REPORT PROCEDURE: MM TOMOSYNTHESIS SCREENING BI COMPARISON: MG MAMM SCREEN 3D NOEL CAD, 10/31/2021. MG MAMM SCREEN 3D NOEL CAD, 10/28/2020. MG MAMM SCREEN NOEL W CAD, 10/27/2019. MG MAMM NOEL SCRN W CAD DIG, 02/07/2016. INDICATIONS: Noel Screening Mammogram Calculator Name NCI Breast Cancer Risk Assessment Tool 5 Year Breast Cancer Risk 1.40% Lifetime Breast Cancer Risk 4.60% Personal Breast Cancer No Personal Ovarian Cancer No Treatments None Family Cancers Grandmother-maternal with throat cancer at age 60; Mother with lung cancer at age 82; Father with throat cancer at age 82. LOCATION: [facility] BREAST COMPOSITION: Heterogeneously dense,which may obscure small masses. FINDINGS: DIAGNOSTIC CATEGORY 1--NEGATIVE. RIGHT BREAST: No significant suspicious finding. No significant change has occurred. LEFT BREAST: No significant suspicious finding. No significant change has occurred. RECOMMENDATIONS: ROUTINE MAMMOGRAM AND CLINICAL EVALUATION IN 12 MONTHS. PLEASE NOTE: A NORMAL MAMMOGRAM DOES NOT EXCLUDE THE POSSIBILITY OF BREAST CANCER. A CLINICALLY SUSPICIOUS PALPABLE LUMP SHOULD BE BIOPSIED. Dictated by: Vince Drew M.D. on 05/22/2023 at 10:36 Approved by: Vince Drew M.D. on 05/22/2023 at 10:38 Dictated By: Vince Drew M.D. Signed By: 05/22/23 1039 DD/ 1038 TD/TT: Neurosurgical Physician Assistant: Procedure Note Radiology, Radiologist, MD - 05/22/2023 [place] [address] Mammography Report Signed Patient: EDILMA LEONARDO LMR#: [id number] : 5Acct:[id number] Age/Sex: 67 / FADM Date: 05/22/23 Loc: MAMMO Attending Dr: Laure Corona SENIOR UI UX DESIGNER Ordering Physician: Laure Corona NPResults: Date of Service: 05/22/23Follow Up: Procedure(s): MM tomosynthesis screening BI Accession Number(s): [id number] cc: Laure Corona NP; Olu Coelho M.D. Patient Name: EDILMA LEONARDO MR#: [id number] : 1955 Exam Date: 05/22/2023 Ordering Doctor: RAFIA Corona SYSTEMS SUPPORT ENGINEER RADIOLOGY REPORT PROCEDURE: MM TOMOSYNTHESIS SCREENING BI COMPARISON: MG MAMM SCREEN 3D NOEL CAD, 10/31/2021. MG MAMM SCREEN 3DBIL CAD, 10/28/2020. MG MAMM SCREEN NOEL W CAD, 10/27/2019. MG MAMM NOEL SCRN WCAD DIG, 02/07/2016. INDICATIONS: Noel Screening Mammogram Calculator Name NCI Breast Cancer Risk Assessment Tool 5 Year Breast Cancer Risk 1.40% Lifetime Breast Cancer Risk 4.60% Personal Breast Cancer No Personal Ovarian Cancer No Treatments None Family Cancers Grandmother-maternal with throat cancer at age 60; Mother with lung cancer at age 82; Father with throat cancer at age 82. LOCATION: [facility] BREAST COMPOSITION: Heterogeneously dense,which may obscure smallmasses. FINDINGS: DIAGNOSTIC CATEGORY 1--NEGATIVE. RIGHT BREAST: No significant suspicious finding. No significant changehas occurred. LEFT BREAST: No significant suspicious finding. No significant changehas occurred. RECOMMENDATIONS: ROUTINE MAMMOGRAM AND CLINICAL EVALUATION IN 12 MONTHS. PLEASE NOTE: A NORMAL MAMMOGRAM DOES NOT EXCLUDE THE POSSIBILITY OFBREAST CANCER. A CLINICALLY SUSPICIOUS PALPABLE LUMP SHOULD BE BIOPSIED. Dictated by: Vince Drew M.D. on 05/22/2023 at 10:36 Approved by: Vicne Drew M.D. on 05/22/2023 at 10:38 Dictated By: Vince Drew M.D. Signed By:05/22/23 1039 DD/ 1038 TD/TT: Neurosurgical Physician Assistant: Laure Corona NP [facility] Final Result documented in this encounter Visit Diagnoses Not on filedocumented in this encounter Care Teams 1St Grade Teacher Relationship Specialty Start Date End Date Olu Coelho MD [address] [place] [phone] PCP - General Family Medicine 05/01/23 07/09/23 Olu Coelho MD [address] [place] [phone] PCP - General Family Medicine 07/10/23 Laure Corona NP [address] [place] [phone] PCP - ACO Reach 06/19/24 Laure Corona NP [address] [place] [phone] Nurse Practitioner Family Medicine 05/01/23 Laure Corona NP [address] [place] [address] Nurse Practitioner Family Medicine 07/10/23 documented as of this encounter
--- OUTSIDE RECORDS SUMMARY | 2024-10-14 07:45 | XMS_ITS | Encounter Summary ---
Author Organization [facility] Address [address] [place] [address] Care Team Providers Care Intake Rn Name Role Phone Laure Corona NP Unavailable [phone] Olu Coelho MD Primary Care Provider [phone] Laure Corona NP Unavailable [phone] Laure Corona NP Unavailable [phone] Encounter Details Date Type Department Care Team (Latest Contact Info) Description 10/07/2024 Travel Social History Tobacco Use Types Packs/Day Years [...] often do you attend chur ch or caodaism services? Never 06/16/2024 Do you belong to any clubs o r organizations such as adventism groups, unions, fraternal [...] Recorded Patient Health Questionnaire-2 Score 0 06/23/2024 [facility] - Occupational Stress [...] any time in the past [address] [facility], were you homeless or living in a [...] Visit [facility] [address] [place] [address] Laure Corona NP [address] [place] [address] 06/29/2025 10:00 AM EST Office Visit [facility] [address] [place] [address] Laure Corona NP [address] [place] [phone] documented as of this encounter Visit Diagnoses Not on filedocumented in this encounter Additional Health Concerns Assessment Noted Time PHQ-9 Depression Total Score: 2 06/23/19 10:00 AM EST documented as of this encounter Care Teams Intake Rn Relationship Specialty Start Date End Date Olu Coelho MD [address] [place] [phone] PCP - General Family Medicine 07/10/23 Laure Corona NP [address] [place] [address] PCP - ACO Reach 06/19/24 Laure Corona NP [address] [place] [phone] Nurse Practitioner Family Medicine 05/01/23 Laure Corona NP [address] [place] [address] Nurse Practitioner Family Medicine 07/10/23 documented as of this encounter
--- OUTSIDE RECORDS SUMMARY | 2024-10-14 07:45 | XMS_ITS | Encounter Summary ---
Author Organization [facility] Address [address] [place] [address] Care Team Providers Care Customs Director Name Role Phone Laure Corona EMBEDDED DEVELOPER Unavailable [phone] Olu Coelho MD Primary Care Provider [phone] Laure Corona EMBEDDED DEVELOPER Unavailable [phone] Laure Corona NP Unavailable [phone] Reason for Visit * Reason Comments Med Refill Encounter Details Date Type Department Care Team (Late st Contact Info) Description 01/25/2024 Refill [facility] [address] [place] [address] Laure Corona EMBEDDED DEVELOPER [address] [place] [address] Primary hypertension (CMS/HCC) Social History Tobacco Use Types Packs/Day [...] often do you attend chur ch or restoration services? Never 06/17/2023 Do you belong to any clubs o r organizations such as worship groups, unions, fraternal or athletic groups, or [...] Recorded Patient Health Questionnaire-2 Score 1 11/13/2023 [facility] - Occupational [...] 8:40 AM EDT Office Visit [facility] [address] [place] [address] Laure Corona NP [address] [place] [address] 06/29/2025 10:00 AM EST Office Visit [facility] [address] [place] [address] Laure Corona NP [address] [place] [phone] documented as of this encounter Visit Diagnoses Diagnosis Primary hypertension (CMS/HCC) Unspecified essential hypertension documented in this encounter Additional Health Concerns Assessment Noted Time PHQ-9 Depression Total Score: 3 06/17/19 24 5:00 PM EST documented as of this encounter Care Teams Customs Director Relationship Specialty Start Date End Date Olu Coelho MD [address] [place] [address] PCP - General Family Medicine 07/10/23 Laure Corona NP [address] [place] [address] PCP - ACO Reach 06/19/24 Laure Corona NP [address] [place] [address] Nurse Practitioner Family Medicine 05/01/23 Laure Corona NP [address] [place] [address] Nurse Practitioner Family Medicine 07/10/23 documented as of this encounter
--- NOTE | 2024-10-14 07:49 | CT_ITS ---
The [address] [address] Patient Name: MARK SAL MRN: [id number] date: 1955 Sex: F Assigned Patient Location: CT Current Patient Location: CT Accession/Order Number: [id number] Exam Date: 10/14/2024 08:45 Report Date: 10/14/2024 08:56 At the request of: SANTI BENNETT NP Procedure: CT lung screening low-dose LOW-DOSE SCREENING CHEST CT WITHOUT CONTRAST COMPARISON: 10/31/2021 and 10/28/2020 CLINICAL DATA: Former smoker for 30 years Spiral axial unenhanced low-dose images were obtained the chest. Images were reviewed using both narrow and wide window settings. This CT exam was performed using one or more following dose reduction techniques: Automated exposure control, adjustment of the mA and/or kV according to patient size, or use of iterative reconstruction technique. The heart is normal in size. No pericardial effusion is seen. There is minimal coronary artery plaque. No aortic aneurysm is visualized. There is a small amount plaque at the aortic arch and proximal left carotid artery. There are small nonpathologic mediastinal lymph nodes. The bony structures are intact. There is degenerative change at the spine, predominantly at the lower cervical spine. Scarring is visualized at the lung apices and both bases. The spiculated area at the anterior right lower lobe is stable. There is no developing consolidation, pleural effusion or pneumothorax. There are multiple stable tiny pulmonary nodules, measuring up to 6 mm. These are predominantly at the upper lobes. No developing adenopathy is identified. Limited cuts through the upper abdomen show no contributory findings. CT/CT lung screening low-dose IMPRESSION: SIMILAR PULMONARY NODULES. Lung RADS category 2 - benign Twelve-month low-dose CT follow-up is suggested. Impression dictated by: Rosa Kiser M.D. 10/14/2024 8:56 AM Dictation Location: [place] [address] Electronically authenticated by: [id number] Y Date: 10/14/2024 08:56
[2024-10-14 08:38] LABS: Anion Gap 14.6; Calcium 9.5 mg/dL (8.5-10.1); Carbon Dioxide 27.7 mmol/L (21.0-32.0); Chloride 103 mmol/L (98-107); Estimated GFR (African America 51 (>=60 mL/min/1.73m^2); Estimated GFR (Non-African Ame 42 (>=60 mL/min/1.73m^2); Glucose 94 mg/dL (74-106); Potassium 4.3 mmol/L (3.5-5.1); Sodium 141 mmol/L (136-145)
== END 2024-10-14 07:43 | disposition home or self-care (01) ==
LOC: CT 07:43
PROVIDERS: PCP Nurse Practitioner; Visit Provider Nurse Practitioner
DX: N28.9 Disorder of kidney and ureter, unspecified (principal); Z87.891 Personal history of nicotine dependence; I10 Essential (primary) hypertension
CPT/HCPCS: 36415; 71271; 80048

== ENCOUNTER 2025-03-16 10:25 | Outpatient (OUT) | payer MEDICARE, SELFPAY ==
--- OUTSIDE RECORDS SUMMARY | 2025-03-11 05:12 | XMS_ITS | Continuity of Care Document ---
Author Organization [facility] Address [address] [place] [address] Phone Care Team Providers Care Chemistry Technologist Name Role Phone Laure Corona NP-C Primary Care Provider Laure Corona NP-Lena Attending Provider Care Teams Patient Care Team Team Status: Active Member Role/Relationship Status Dates SYLVIA Judge Primary Care Provider Active Patient Care Team Team Status: Inactive Member Role/Relationship Status Dates SYLVIA Judge Primary Care Provider Active Start: March 11, 2025 End: March 11, 2025LIYA JudgeCAttending ProviderActiveStart: March 11, 2025 End: March 11, 2025 Chief Complaint and Reason for Visit Chief Complaint Admit Date 3M March 11, 2025 9 :27am Reason for Visit Admit Date Chronic kidney disease, stage 3 March 11, 2025 9:27am Essential hypertension March 11 9:27am TIMOTEO (generalized anxiety disorder) Octob er 2024 9:27am Hypothyroidism March 11, 2025 9 :27am Mixed hyperlipidemia March 11, 2025 9:27am Allergies, Adverse Reactions, Alerts Allergen Type Severity Reaction Last Updated Verified Status Comments naproxen Allergy Mild Rash March 11, 2025 9:56am Yes Active swelling prednisone Allergy Unknown Unknown Reaction March 11, 2025 9:56am Yes Active cephalexinAllergyUnknownDizzinessOctober 2024 9:56amYesActiveciprofloxacin AllergyUnknownGastrointestinal UpsetOctober 2024 9:56amYesActive PenicillinsAllergyUnknownUnknown ReactionOctober 2024 9:56amYesActive Social History Smoking Status Status Start Date End Date Date of Observa tion Ex-smoker (finding) April 25, 2023 6:07pm Observation Status Observation Response Date of Response Legal Sex Female (finding) Sex Assigned At BirthFemaleMay 1955 Problems Active Problems Problem Diagnosis/Recorded Date Onset Date Stat us Lateral epicondylitis of left elbow March 04, 2025 12:47pm Unknown Active Encounter for subsequent [facility] wellness visit (AWV) in Medicare patient March 04, 2025 12:46pm Unknown A ctive TIMOTEO (generalized anxiety disorder) March 04, 2025 12:47pm Unknown Active Encounter for screening mamm ogram for malignant neoplasm of breast March 04, 2025 12:46pm Unknown Acti ve Chronic kidney disease, stage 3 March 04, 2025 12: 46pm Unknown Active Acute pain of left shoulder March 04, 2025 12:45pm Unknown Active Strain of left biceps muscle March 04, 2025 12:46p m Unknown Active Hypothyroidism March 04, 2025 12:47pm Unknown Active Mixed hyperlipidemia March 06, 2025 2:02pm Unknown Active Radiculopathy affecting upper extremity March 04, 2025 12:48pm Unknown Active Essential hypertension March 06, 2025 2:03pm Unkno wn Active Former smoker March 04, 2025 12:46pm Unknown Active BMI 25.0-25.9,adult March 04, 2025 12:46pm Unknown Active Subacute cough March 04, 2025 12:48pm Unknown Active Inactive/Resolved Problems Problem Diagnosis/Recorded Date Onset Date Stat us Radiculopathy April 25, 2023 10:36pm Unknown Resolved Chest pain April 25, 2023 10:36pm Unknown Resolved Medications Medication Status Dose Units Route Directions Qty Days Refills S tart Date Stop Date End Date Reason(s) Instructions Adherence Lisinopril 20 mg tablet Active MGDecember 2022 1:00amComplies with drug therapySimvastatin 40 mg tablet DiscontinuedMGDecember 2022 1:00amOctober 2024 2:02pmLevothyroxine 25 mcg tabletActiveMCGDecember 2022 1:00amComplies with drug therapy Prednisone 20 mg rbslxwMijjpeotwsjs04PDJWVplfj486Wqqrfwqc 2022 1:00am March 06, 2025 2:04pmNaproxen 500 mg xxhnlxZonagotjlfhv338FMBICevzv daily as needed for zjci992Lwkbinhv 2022 1:[facility] 20[facility] 2:03pm Atorvastatin 20 mg zloqjuPxxmza04FUFGSlpgv at bedtimeFormerly [facility] 2024 12:00am Mixed hyperlipidemia Mixed hyperlipidemiaComplies with drug therapyHydrochlorothiazide 25 mg tablet Tvtcqgrrnuqo60RHQUMuuroQfhulfc 2024 12:00amOcthard[facility] 2024 9:55am Primary hypertension Essential (primary) hypertensionSertraline 50 mg irmulrVrlsxu34ATHZNcwbxWqtwqsv 2024 12:00amGeneralized anxiety disorder Generalized anxiety disorderComplies with drug therapyHydrochlorothiazide 25 mg wkhmmlYbdzyo98.5MGPODailyFormerly [facility] 2024 9:54amPrimary hypertension Essential (primary) hypertensionComplies with drug therapy Vital Signs Vital Reading Result Reference Range Collection Date/Time Height 63.5 [in_i] March 11, 2025 9:99ksKhrtla70.24 kgOcthardin memorial hospital 2024 9:42amBody Temperature 98.7 [degF]97.6-99.0Formerly [facility] 2024 9:42amHeart Rate72 /zme93-842Zfljzny 2024 9:42amRespiratory rate18 /irq20-87Ihjyalt 2024 9:42amOxygen saturation by Pulse lztcdvyr25 %95-100Formerly [facility] 2024 9:42amBP Haogfklz742 mm[Hg]100-140Oct[facility] 2024 9:42amBP Gqxwfjqwx38 mm[Hg]60-100Formerly [facility] 2024 9:42amBMI (Body Mass Index)25.8 kg/k8Lcstuyb 2024 9:42am Advance Directives Advance Directive Response Recorded Date/ Time Advance Directives No April 7:19pm Insurance Providers Guarantor Edilma Leonardo Address [address] [place] [id number] Info.Home Phone: Payer Group Member ID Coverage Type Subscriber Relationship to Subscriber Effective Date Expiration Date Medicare [id number] L Bridinger Id: [id number] [facility] [address] [facility] [address] Home Phone: [facility] CLAIMS Id: Plan [id number] Encounters Encounter Location(s) Arrival/Admit Date Discharge/Departure Date Discharge/Departure Disposition Provider(s) Departed Physician/ Provider Office Visit -[facility] [place] March 11, 2025 9:27am March 11, 2025 10:10am Discharged to home care or self care (routine discharge) Laure Corona LEATHER GOODS SALES REPRESENTATIVE-C Recent Diagnosis Onset Date Admit Date Chronic kidney disease, stage 3 Unknown March 11, 2025 9:27am Essential hypertension Unknown February 122024 9:27am TIMOTEO (generalized anxiety disorder) Unknown March 11, 2025 9:27am Hypothyroidism Unknown March 11 9:27am Mixed hyperlipidemia Unknown February 9:27am Assessments Diagnosis Onset Date Resolution Status Admit Date Chronic kidney disease, stage 3 acuteOctober 2024 9:27amEssential hypertensionacuteOctober 2024 9:27amGAD (generalized anxiety disorder)acuteOctober 2024 9:27am HypothyroidismacuteOctober 2024 9:27amMixed hyperlipidemiaacuteOctober 2024 9:27am Plan of Treatment [facility] 6:21amPlease check blood pressure daily and record DASH diet Limit caffeine Take medication as directed Contact office if chest pain, pressures, dizziness, shortness of breath, swelling in the legs Recommend slow position changes if you develop dizziness with position changes current meds: HCTZ, lisinopril is on levothyroxine check labs yearly, and prn dose change or changes in sxs on statin therapy check labs yearly and prn dose changes on sertraline periodic monitor of labs control blood pressure recommend avoid nephrotoxic drugs when possible labs 10/14/24 BUN 24, Cr 1.26 and gfr 42 relatively stable pattern Future Tests Future scheduled test information is unavailable Pending Tests Pending diagnostic test information is unavailable Future Visits Future appointment information is unavailable Future Procedures Future procedure information is unavailable Future Medications Future medication information is unavailable Patient Instructions Patient instructions are unavailable
--- OUTSIDE RECORDS SUMMARY | 2025-03-16 10:29 | XMS_ITS | Encounter Summary ---
Author Organization [facility] Address [address] [place] [address] Care Team Providers Care International Bank Manager Name Role Phone Laure Corona NP Unavailable [phone] Olu Coelho MD Primary Care Provider [phone] Olu Coelho MD Primary Care Provider [phone] Laure Corona NP Unavailable [phone] Laure Corona NP Unavailable [phone] Encounter Details DateTypeDepartmentCare Team (Latest Contact Info)Qvvjbovanmu71/10/2024Clinisync Result Encounter [facility] Unsolicited Laure Corona NP [address] [place] [phone] Social History Tobacco UseTypesPacks/DayYears UsedDateSmoking Tobacco: FormerCigarettesQuit: 2016Smokeless Tobacco: NeverAlcohol UseStandard Drinks/WeekCommentsYes2 (1 standard drink = 0.6 oz pure alcohol)caffine: 3cups [id number] Health Literacy AnswerDate RecordedHow often do you need to have someone help you when you read instructions, pamphlets, or other written material from your doctor or pharmacy? Never06/16/2024Humiliation, Afraid, Rape, and Kick questionnaireAnswerDate RecordedWithin the last year, have you been afraid of your partner or ex-partner?No05/13/2023Within the last year, have you been humiliated or emotionally abused in other ways by your partner or ex-partner?No05/13/2023 Within the last year, have you been kicked, hit, slapped, or otherwise physically hurt by your partner or ex-partner?No05/13/2023Within the last year, have you been raped or forced to have any kind of sexual activity by your part ner or ex-partner?No05/13/2023Social Connection and Isolation PanelAnswerDate RecordedIn a typical week, how many times do you talk on the phone with family, friends, or neighbors?Three times a week06/16/2024How often do you get together with friends or relatives?Twice a week06/16/2024How often do you attend gnosticism or mosque services?Never06/16/2024Do you belong to any clubs or organizations such as gnosticism groups, unions, fraternal or athletic groups, or school groups?No 06/16/2024How often do you attend meetings of the clubs or organizations you belong to?Never06/16/2024re you , , , , never , or living with a partner?Qmwjfyv7906/16/2024UDIT-CAnswerDate RecordedQ1: How often do you have a drink containing alcohol?2-4 times a month06/16/2024Q2: How many drinks containing alcohol do you have on a typical day when you are drinking?1 or Q3: How often do you have six or more drinks on one occasion?Less than prvachz8606/16/2024Overall Financial Resource Strain (CARDIA) AnswerDate RecordedHow hard is it for you to pay for the very basics like food, housing, medical care, and heating?Not hard at all06/16/2024PHQ-2AnswerDate RecordedPatient Health Questionnaire-2 Eacfr127Finj[facility] [place] of Occupational Health - Occupational Stress QuestionnaireAnswerDate RecordedDo you feel stress - tense, restless, nervous, or anxious, or unable to sleep at night because yourmind is troubled all the time - these days?Only a sndloi9806/16/2024 Exercise Vital SignAnswerDate RecordedOn average, how many days per week do you engage in moderate to strenuous exercise (like a brisk walk)?1 day06/16/2024On average, how many minutes do you engage in exercise at this level?30 min 06/16/2024Hunger Vital SignAnswerDate RecordedWithin the past 12 months, you worried that your food would run out before you got the money to buymore.Never true06/16/2024Within the past 12 months, the food you bought just didn't last and you didn't have money to get more.Never true06/16/2024PRAPARE - TransportationAnswerDate RecordedIn the past 12 months, has lack of transportation kept you from medical appointments or from getting medications?No 06/16/2024In the past 12 months, has lack of transportation kept you from meetings, work, or from getting things needed for daily living?No06/16/2024 Housing Stability Vital SignAnswerDate RecordedIn the last 12 months, was there a time when you were not able to pay the mortgage or rent on time?No05/13/2023In the last 12 months, how many places have you lived?In the last 12 months, was there a time when you did not have a steady place to sleep or slept in [place]ver[place]ter (including now)?No05/13/2023Housing Stability Vital SignAnswerDate RecordedIn the last 12 months, was there a time when you were not able to pay the mortgage or rent on time?No06/16/2024In the past 12 months, how many times have you moved where you were living?t any time in the past 12 months, were you homeless or living in a [facility] (including now)?No06/16/2024 CommentsUnknownSex and Gender InformationValueDate RecordedSex Assigned at PmlccPbsyqs07/20/2023 11:48 AM ESTLegal MwvOrulmk18/15/2023 10:10 AM EST Gender SjrxraofFosucs08/20/2023 11:48 AM ESTSexual OrientationNot on file documented as of this encounter Functional Status * AUDIT-C ScoreAnswerDate of AeheowmqheRdomvt152/04/2025 9:24 AM Nettie Cornell * Q1: How often do you have a drink containing alcohol?AnswerDate of Assessment Author2-4 times a month06/16/2024 9:24 AM Nettie Cornell * Q2: How many drinks containing alcohol do you have on a typical day when you are drinking?AnswerDate of AssessmentAuthor1 or 9:24 AM EST Franklin Generic * Q3: How often do you have six or more drinks on one occasion?AnswerDate of AssessmentAuthorLess than jvoihgq0406/16/2024 9:24 AM Nettie Cornell * Over the past 2 weeks, how often have you been bothered by any of the following problems?QuestionAnswerDate of AssessmentAuthorLittle interest or pleasure in doing thingsNot at all06/23/2024 10:00 AM Maryellen Tovar MAFeeling down, depressed, or hopelessNot at all06/23/2024 10:00 AM Maryellen Hsieh MAPatient Health Questionnaire-2 Wliss027 10:00 AM Maryellen Tovar MA * QuestionAnswerDate of AssessmentAuthorTrouble falling or staying asleep, or sleeping too muchSeveral days06/23/2024 10:00 AM Maryellen Tovar MA Feeling tired or having little energyNot at all06/23/2024 10:00 AM Marylelen Hsieh MAPoor appetite or overeatingSeveral days06/23/2024 10:00 AM Maryellen Tovar MAFeeling bad about yourself - or that you are a failure or have let yourself or your family downNot at all06/23/2024 10:00 AM Maryellen Tovar MATrouble concentrating on things, such as reading the newspaper or watching televisionNot at all06/23/2024 10:00 AM Maryellen Tovar MAMoving or speaking so slowly that other people could have noticed? Or the opposite - being so fidgety or restless that you have been moving around a lot more than usual.Not at all06/23/2024 10:00 AM Maryellen Tovar MAThoughts that you would be better off or hurting yourself in some wayNot at all06/23/2024 10:00 AM Maryellen Tovar MAPatient Health Questionnaire-9 Ulask095 10:00 AM Maryellen Tovar MA * How difficult have these problems made it for you to do your work, take care of things at home, or get along with other people?AnswerDate of Assessment AuthorNot difficult at all11/13/2023 2:11 PM Melissa Henao MA * Geriatric Depression Scale (Short Version)QuestionAnswerDate of Assessment AuthorAre you basically satisfied with your life?Yes06/17/2023 4:40 PM EST Maryellen Coy MAHave you dropped many of your activities and interests? No06/17/2023 4:40 PM Maryellen Tovar MADo you feel that your life is empty?No06/17/2023 4:40 PM ESTCapombjennyrMaryellne MADo you often get bored?No 06/17/2023 4:40 PM Maryellen Tovar MAAre you in good spirits most of the time?Yes06/17/2023 4:40 PM Maryellen Tovar MAAre you afraid that something bad is going to happen to you?No06/17/2023 4:40 PM ESTCapombMaryellen simmons MADo you feel happy most of the time?Yes06/17/2023 4:40 PM EST Jennifer CoyaADEELo you often feel helpless?No06/17/2023 4:40 PM EST Jennifer CoyaMikal you prefer to stay at home, rather than going out and doing new things?No06/17/2023 4:40 PM ESTCapombjennyrJenniferaADEELo you feel you have more problems with memory than most?No06/17/2023 4:40 PM ESTMaryellen Coy MADo you think it is wonderful to be alive now?Yes06/17/2023 4:40 PM Maryellen Tovar MADo you feel pretty worthless the way you are now?No 06/17/2023 4:40 PM Maryellen Tovar MADo you feel full of energy?No 06/17/2023 4:40 PM Maryellen Tovar MADo you feel that your situation is hopeless?No06/17/2023 4:40 PM Maryellen Tovar MADo you think that most people are better off than you are?No06/17/2023 4:40 PM Maryellen Tovar MAGeriatric Depression Scale (Short Version) Ilbst349 4:40 PM EST Maryellen Coy MA documented as of this encounter Plan of Treatment Not on file documented as of this encounter Procedures Procedure NamePriorityDate/TimeAssociated DiagnosisCommentsMM TOMOSYNTHESIS SCREENING BI05/22/2023 10:38 AM EST documented in this encounter Results * MM TOMOSYNTHESIS SCREENING (05/22/2023 10:38 AM EST)Anatomical Region LateralityModalityOtherSpecimen (Source)Anatomical Location / Laterality Collection Method / VolumeCollection TimeReceived Time05/22/2023 10:38 AM EST Narrative 05/22/2023 10:39 AM EST [facility] ?[address] ? [place] [address] ? Mammography Report ? Signed ? Patient: EDILMA LEONARDO L ?MR#: [id number] ?? : 1955 ?Acct:[id number] ?? Age/Sex: 67 / F ?ADM Date: // ?? Loc: MAMMO ? Attending Dr: Laure Aichholz HUMAN SERVICES PROGRAM SPECIALIST ? Ordering Physician: Aichholz,Laure HUMAN SERVICES PROGRAM SPECIALIST ?Results: ? Date of Service: //24 ?Follow Up: ? Procedure(s): MM tomosynthesis screening BI ?? Accession Number(s): [id number] ? cc: Laure Corona NP; Olu Coelho M.D. ? Patient Name: ? EDILMA LEONARDO ? MR#: [id number] ? : 1955 ? Exam Date: 05/22/2023 ?? Ordering Doctor: RAFIA Corona CNP ? RADIOLOGY REPORT ? PROCEDURE: ? MM TOMOSYNTHESIS SCREENING BI ? COMPARISON: ? MG MAMM SCREEN 3D NOEL CAD, 10/31/2021. ??MG MAMM SCREEN 3D NOEL ?? CAD, 10/28/2020. ??MG MAMM SCREEN NOEL W CAD, 10/27/2019. ??MG MAMM NOEL SCRN W CAD ?? DIG, 02/07/2016. ? INDICATIONS: ? Noel Screening Mammogram ? Calculator Name ? NCI Breast Cancer Risk Assessment Tool ?? 5 Year Breast Cancer Risk ? 1.40% ?? Lifetime Breast Cancer Risk ? 4.60% ?? Personal Breast Cancer ?No ?? Personal Ovarian Cancer ? No ?? Treatments ? None ?? Family Cancers ? Grandmother-maternal with throat cancer at age ??60; ?? Mother with lung cancer at age 82; Father with throat cancer at age 82. ? LOCATION: ? [facility] ? BREAST COMPOSITION: ? Heterogeneously dense,which may obscure small masses. ? FINDINGS: ? DIAGNOSTIC CATEGORY 1--NEGATIVE. ? RIGHT BREAST: ??No significant suspicious finding. ??No significant change has ?? occurred. ? LEFT BREAST: ??No significant suspicious finding. ??No significant change has ?? occurred. ? RECOMMENDATIONS: ? ROUTINE MAMMOGRAM AND CLINICAL EVALUATION IN 12 MONTHS. ? PLEASE NOTE: ??A NORMAL MAMMOGRAM DOES NOT EXCLUDE THE POSSIBILITY OF BREAST ?? CANCER. ??A CLINICALLY SUSPICIOUS PALPABLE LUMP SHOULD BE BIOPSIED. ? Dictated by: [place] Drew M.D. on 05/22/2023 at 10:36 ? Approved by: [place] Drew M.D. on 05/22/2023 at 10:38 ? Dictated By: ?[place] Drew M.D. ? Signed By: ?/03/05 1039 ? DD/ 1038 ? TD/TT: ? Public Events Facilities Rental Manager: Procedure Note Radiology, Radiologist, MD - 05/22/2023 [place] [address] Mammography Report Signed Patient: EDILMA LEONARDO LMR#: [id number] : 5Acct:[id number] Age/Sex: 67 / FADM Date: 05/22/23 Loc: MAMMO Attending Dr: Laure Corona NP Ordering Physician: Laure Coronaesults: Date of Service: 05/22/23Follow Up: Procedure(s): MM tomosynthesis screening BI Accession Number(s): [id number] cc: Laure Corona NP; Olu Coelho M.D. Patient Name: EDILMA LEONARDO MR#: [id number] : 1955 Exam Date: 05/22/2023 Ordering Doctor: RAFIA Corona USED BUILDING MATERIALS YARD WORKER RADIOLOGY REPORT PROCEDURE: MM TOMOSYNTHESIS SCREENING BI [...] throat cancer at age 81. LOCATION: [facility] BREAST COMPOSITION: Heterogeneously dense,which may obscure smallmasses. [...] M.D. Signed By:05/22/23 1039 DD/ 1038 TD/TT: Public Events Facilities Rental Manager: Authorizing ProviderResult TypeResult StatusLisa [facility] NPCLINISYNC IMAGING Final Result documented in this encounter Visit Diagnoses Not on filedocumented in this encounter Care Teams Team MemberRelationshipSpecialtyStart DateEnd Date Olu Coelho MD PCP - GeneralFamily Uplnzzqd46/20/232 Olu Coelho MD PCP - GeneralFamily Medicine07/10/23 Laure Corona NP [address] [place] [address] PCP - ACO Reach06/19/24 Laure Corona NP Nurse PractitionerFamily Xagujwdg02/20/23 Laure Corona NP Nurse PractitionerFamily Medicine07/10/23documented as of this encounter
--- OUTSIDE RECORDS SUMMARY | 2025-03-16 10:29 | XMS_ITS | Data Portability ---
Author Organization [place] - [facility], Telehealth Address [address] [facility] [place] [address] Assessment No assessment recorded. Plan of Treatment Reminders Order DateSubmit DateProviderLast Modified ByKory DetailsJulian Modified TimeDetailsAppointmentsNone recorded.LabNone recorded.ReferralNone recorded. ProceduresNone recorded.SurgeriesNone recorded.ImagingNone recorded.Medication OrdersAugmentin 875 mg-125 mg gcvrgz75[id number], [address] [place], [address], 03/19/2019 09:12:08Lidocaine Viscous 2 % mucosal ewjozmcu91[facility] #[id number], [address] [place], [address], 03/19/2019 09:12:08fluticasone propionate 50 mcg/actuation nasal spray,hkopgomtus35[facility] #[id number], [address] [place], [address], 03/19/2019 09:12:09 Patient TargetsNo targets recorded. Patient Instructions Encounter Date Encounter Id Patient Instructions Last Modified By Organization Details Last Modified Time 03/19/2019 [id number] Please consult o ur office promptly if you develop any of the following symptoms: 1. A fever of at least 101???F or 38.4???C 2. Throat pain that is severe or does not start to improve within 5 to 7 days Call for an ambulance or go to the emergency room if you: 1. Have trouble breathing 2. Cannot control your saliva (drooling) due to difficulty swallowing 3. Have swelling of the neck or tongue 4. Cannot move your neck or have trouble opening your pkfayzndkmkyw25Xeh kgtvbwbiw55/07/2019 08:54:04 Reason for Referral None Reported. Problems Name Problem SNOMED Code Status Onset Date Resolution Date Notes Provider Name and Address Organization Details Recorded Time Hyperlipidemia 43184891 Active 03/19/2019 [facility]03/19/2019 08:57:[id number] Nwuuqn8803/19/2019[facility]03/19/2019 08:57:27Hypertensive disorder 17140747Ihpcnq83/07/2019[facility]03/19/2019 08:57:33 Problem Notes None recorded. Medical Equipment None Reported. Allergies Allergen ID Allergen Name Allergen Category Reaction Reaction Severity Criticality Documentation Date Start Date Code Code System Note Provider Name and Address Organization Details Recorded Time 2404 Keflex medication Not available Not available Not ofwqovbjv34/07/5451007443BjOboeVkuduT[facility]/19/2019 08:55:12 Medications Name Sig Start Date Stop Date Status Note LastModified by Organization Details LastModified Time Augmentin 875 mg-125 mg tablet Take 1 ta blet every 12 hours by oral route for 10 days. 03/19/2019 activeNot AvailableNot AvailableNot AvailableLidocaine Viscous 2 % mucosal solutionTake 10 mL every 3 hours by oral route as needed for 3 days.03/19/2019 activeNot AvailableNot AvailableNot Availablefluticasone propionate 50 mcg/actuation nasal spray,suspensionSpray 2 sprays every day by intranasal route for 15 days.03/19/2019activeNot AvailableNot AvailableNot Availablelevothyroxine activeNot AvailableNot AvailableNot AvailablesimvastatinactiveNot AvailableNot AvailableNot AvailablelisinoprilactiveNot AvailableNot AvailableNot Available Vitals Date Recorded Body height Body mass index (BMI) Body weight Heart rate Oxygen saturation Oxygen saturation in Arterial blood by Pulse oximetry Systolic And Diastolic Provider Name and Address Organization Details Last Updated DateTime 9 160.02 cm 26.6 kg/m2 35427.8 6 g 82 /min 95 % 95 % 160/92 mm[Hg] Hannah Fan [facility] 9 08:59:12 Social History Question Answer Notes LastModified by Organization D etails LastModified Time Tobacco Smoking Status Never Smoker Not KbzmuhptaJhtvbvOinfld26/03/2020 03:36:47What Type Of Diet Are You Following? [id number] not skdzhjtmy53/03/2020What Was The Date Of Your Most Recent Tobacco Screening?03/19/2019DBA20201103_13Information not pfbtogimq78/03/2020 Sex: Unknown Functional Status Question Answer Note LastModified by Organizat ion Details LastModified Time What is your level of alcohol consumption? Occasional socially [id number] Information not available 03/15/2020 Mental Status None recorded. Family History Nothing Reported. Medical History No medical history recorded. Gynecological HistoryNo gynecological history recorded. Obstetrics History GPAL:G 0 P 0 0 0 0 Past Encounters Encounter ID Performer Location Encounter Start Date Encounter Closed Date Diagnosis/Indication Diagnosis SNOMED-CT Code Diagnosis ICD10 Code Diagnosis IMO Codes Diagnosis Note [id number] Corey Dotson PA-C [facility] [address] [place] [address] 03/19/2019 08:46:05 03/19/2019 09:43:00 Acute pharyngitis 851573121 J02.9 Health Concerns Section Related Observation LastModified by Organization Detai ls LastModified Time None Recorded Concern Status LastModified by Organization Details LastModified Time None Recorded Advance Directives Directive None Recorded Payers Insurance Date Sequence Insurance Name Policy Number Policy Monroy Covered Member ID Monroy Member ID Guarantor Name 03/19/2019 1 [facility] Edilma Almendarezirma [id number] Edilma Leonardo Notes Date Note Type Note Provider Name and Address Organization Details Recorded Time 9 text/html Sore Throat UCReported by PatientHPIFor quality, patient reportspainful,difficul ty swallowing,laryngitis, andsymptoms worse during the day. For severity, patient reportsmoderatebut reportssame. For aggravating factors, patient reportstalking. For associated symptoms, patient reportsappetite lossandnasal congestion/dischargebut reportsno fever,no cough,no nausea,no vomiting, andno abdominal pain. For onset/timing, patient reportssudden. For duration, patient reportsstarted 5 day(s) ago. For context, patient reportsno one else with similar symptoms,recent travel, andallergies. For alleviating factors, patient reportsthroat lozenges.ROS as noted in the HPI Corey Dotson PA-C [address] [place], [address], [facility] 03/19/2019 09:16:51 OBGyn Episode No OBEpisode recorded.
--- OUTSIDE RECORDS SUMMARY | 2025-03-16 10:29 | XMS_ITS | Clinical Summary ---
Author Organization [employer] [facility] tem Address [id number] [address] [place] [address] Care Team Providers Care Ship Purser Name Role Phone Chloe Laure Amos APRN-CAREER CENTER DIRECTOR Primary Care Provider Allergies Active AllergyReactionsCriticalityNoted DateCommentsCephalexinDizziness 11/11/2019 Medications MedicationSigDispense QuantityRefillsLast FilledStart DateEnd DateStatus levothyroxine (SYNTHROID, LEVOTHROID) 25 MCG tablet Take 25 mcg by mouth daily.09/28/2019Active lisinopriL (PRINIVIL,ZESTRIL) 10 mg tablet Take 10 mg by mouth daily.09/28/2019Active simvastatin (ZOCOR) 40 mg tablet Take 40 mg by mouth nightly.09/28/2019Active aspirin 81 mg chewable tablet Chew 81 mg and swallow daily.Active mesalamine (ASACOL) 800 mg EC tablet Take 1 tablet (800 mg total) by mouth 3 (three) times a day. 90 tablet Active Additional Information Patient not taking.Reported on 01/22/2020 Active Problems No known active problems Family History Medical HistoryRelationNameCommentsCancerFatherEsophageal cancerFatherThroat cancerMaternal GrandmotherHyperlipidemiaMotherBarbara RoseHypertensionMother Isidrayusuf Choudharyng cancerMotherBarbara RoseRelationNameStatusCommentsFather DeceasedMaternal GrandmotherDeceasedMotherBarbara RoseAlive Social History Tobacco UseTypesPacks/DayYears UsedDateSmoking Tobacco: FormerSmokeless Tobacco: NeverAlcohol UseStandard Drinks/WeekCommentsYes0 (1 standard drink = 0.6 oz pure alcohol)SOCIALChildcareAnswerDate MxuctyikBnxerkivuWjtrevi33/12/2019Employment AnswerDate XueocjuaNcievpoxvoCdudsbe42/12/2019Purpose - LifeAnswerDate Recorded Purpose and direction in kdkxUruwllr46/11/2021CommentsUnknownSex and Gender InformationValueDate RecordedSex Assigned at BirthNot on fileLegal Sex Ylgbcx9512/16/2014 11:31 AM EDTGender IdentityNot on fileSexual OrientationNot on file Last Filed Vital Signs Vital SignReadingTime TakenCommentsBlood Kbkzeqvk325/8009 8:24 AM EDT Masxu417212/07/2019 8:55 AM OCNAbjikomjcag74.5 ??C (97.7 ??F)01/22/2020 8:24 AM EDTRespiratory Smcd456312/07/2019 8:55 AM EDTOxygen Iekpwrbubd26%12/07/2019 8:55 AM EDTInhaled Oxygen Concentration--Gsaqvu34.7 kg (158 lb)01/22/2020 8:24 AM EDT Dluqnq978.6 cm (5' 4 )01/22/2020 8:24 AM EDTBody Mass Index27.1209 8:24 AM EDT Plan of Treatment Health MaintenanceDue DateLast DoneCommentsDepression Pdnzskzze68/06/1967Tobacco Eduqpmfwu95/06/1967Adult BMI Ursizmkin67/06/1973DTaP,Tdap and Td Vaccines (1 - Tdap)1973Fall Risk Xmhaoadwz39/06/2020Influenza Frjoqwy3601/11/2025 02/25/2020, 02/26/2018, 02/14/2017, Additional history existsRSV ( or age 60+ yrs) (1 - 1-dose 75+ series)2029Zoster (Shingles) VaccineCompleted 11/06/2017, 09/04/2017 Medical Devices Not on file Insurance Care Teams Team MemberRelationshipSpecialtyStart DateEnd Date Laure Corona, [employer] DIRECTOR PCP - GeneralNurse Practitioner11/05/19
--- OUTSIDE RECORDS SUMMARY | 2025-03-16 10:29 | XMS_ITS | Clinical Summary ---
Author Organization [facility] Address [address] [place] [address] Care Team Providers Care Quarter Folder Name Role Phone Laure Corona NP Unavailable [phone] Olu Coelho MD Primary Care Provider Laure Corona NP Unavailable [phone] Laure Corona NP Unavailable [phone] Allergies Active AllergyReactionsCriticalityNoted DateCommentsNaproxenSwelling,RashLow 4CephalexinDizziness,XdngAfw1111/11/20193382DsrswlosowoUtokWdg35/08/2024 Wyivvhogfw18/28/2024 High blood pressure Medications MedicationSigDispense QuantityRefillsLast FilledStart DateEnd DateStatus hydroCHLOROthiazide (HYDRODiuril) 25 MG tablet Indications:Primary hypertensionTake 1 tablet (25 mg) by mouth Daily 90 tablet 5Active lisinopril 20 MG tablet Indications:Primary hypertensionTake 1 tablet (20 mg) by mouth Daily 90 tablet 5Active sertraline (Zoloft) 50 MG tablet Indications:TIMOTEO (generalized anxiety disorder)Take 1 tablet (50 mg) by mouth Daily 90 tablet 5Active levothyroxine (Synthroid, Levoxyl) 25 MCG tablet Indications:Hypothyroidism, unspecifiedTake 1 tablet (25 mcg) by mouth in the morning. Take before meals. 90 tablet 5Active atorvastatin (Lipitor) 20 MG tablet Indications:Mixed hyperlipidemiaTake 1 tablet (20 mg) by mouth at bedtime 90 tablet 5Active Active Problems ProblemNoted DateDiagnosed DateChronic kidney disease, stage 3a12/09/2024 Assessment & Plan (12/09/2024 6:09 AM EDT): Continue periodic monitoring of renal function Recommend avoiding nephrotoxic drugs if possible Goal for adequate blood pressure control as well Subacute cough10/08/2024 Assessment & Plan (12/09/2024 6:07 AM EDT): Usually at night, likely PND Trial OCT loratadine and flonase nasal spray Assessment & Plan (10/08/2024 10:29 AM EDT): Usually at night, likely PND Trial OCT loratadine and flonase nasal spray Former czbbyo8210/08/2024 Overview (10/14/2024): Low dose CT chest: 10/14/24: stable when compared to CT from 2021 and 2022 Assessment & Plan (10/08/2024 10:33 AM EDT): [...] smoking cessation. Biceps muscle strain, left, initial obaiexeoo63/11/2025 Assessment & Plan (06/23/2024 12:13 PM EST): Will monitor for now, recommend OTC muscle rub No def injury, RC appears intact as well as biceps muscle and tendon DD: possible cervical radicuopathy will call if does not get better Needs flu shot04/21/2024 Assessment & Plan (04/21/2024 9:16 AM EST): Declines high dose d/t concerns about not tolerating it as sister had difficulty with this Ok for regular dose flu shot TIMOTEO (generalized anxiety disorder)10/16/2023 Overview (06/23/2024): 06/23/24: phq 2, timoteo 7 =1 Assessment & Plan (12/09/2024 6:07 AM EDT): Current med is sertraline at 50mg daily Assessment & Plan (10/08/2024 6:29 AM EDT): Current med is sertraline at 50mg daily Assessment & Plan (06/23/2024 11:07 AM EST): Current med is sertraline at 50mg daily TIMOTEO 7=1 PHQ9=2 Assessment & Plan (04/21/2024 6:28 [...] mg. Follow up in one month to assessresponse to increased dose. Assessment & Plan (10/16/2023 [...] in 4 weeks Acute pain of left /28/2024 Assessment & Plan (07/10/2023 9:31 AM EST): The diagnosis is still evolving Therapy seems to have helped the epicodylitis Will refer to Ortho BMI 25.0-25.9,adult06/17/2023rimary sptuclihehbu39/05/2024 Assessment & Plan (12/09/2024 6:07 AM EDT): Please check blood pressure daily and record DASH diet Limit caffeine Take medication as directed Contact office if chest pain, pressure, dizziness, shortness of breath, swelling legs Recommend slow position changes Current meds: lisinopril and hydrochlorothiazide (12.5mg) Assessment & Plan (10/08/2024 6:29 AM EDT): [...] effects, drug interactions and to reach out tooffice/pharmacy if questions or concerns related to new medications. Patient asked to spread out her BP medications. BMP in one week as hydrochlorothiazide was recentlystarted and we need to monitor electrolytes and [...] we recheck Encounter for Medicare annual wellness exam06/17/2023 Assessment & Plan (06/23/2024 6:26 AM EST): [...] up yearly and prn Encounter for screening mammogram for malignant neoplasm of kckqqy5305/20/2023 Lateral epicondylitis of left elbow05/01/2023 Assessment & Plan (05/20/2023 10:32 AM EST): Cannot take NSAID as she has an upcoming eye surgery and no NSAIDs Will provide w T #3 to use if severe pain Assessment & Plan (05/01/2023 12:54 PM EST): Trial tennis elbow strap to affected extremity Possible still was some degree of radiculopathy, will need to obtain [facility] notes and etc Radiculopathy affecting upper yfpdpygoz83/20/2023 Assessment & Plan (07/10/2023 9:30 AM EST): [...] PM EST): Diagnosis given in the ER Szbudwnrcenumc59/07/2019 Assessment & Plan (04/21/2024 6:27 AM EST): Current med is simvastatin at 40mg daily Check labs yearly and prn dose changes Recommend low fat diet Tktcktrtuavsxu50/07/2019 Assessment & Plan (10/08/2024 6:29 AM EDT): Current med is levo at 25mcg Check labs yearly and prn dose changes Assessment & Plan (06/23/2024 6:25 AM EST): Current med is levo at 25mcg Check labs yearly and prn dose changes Assessment & Plan (04/21/2024 6:27 AM EST): Current med is levo at 25mcg Check labs yearly and prn dose changes Resolved Problems ProblemNoted DateDiagnosed DateResolved DateAbnormal kidney /16/2025 12/09/2024 Assessment & Plan (06/23/2024 6:29 AM EST): Labs in 06/06: CR 1.33 BUN 32, and GFR 40, hydrochlorothiazide dose was cut down from 25mg daily to 12.5mg daily 06/22/24: Cr 1.20, BUN 27, GFR 45 Viral upper respiratory tract xvanmtxnx79/02/2024 Assessment & Plan (01/21/2024 10:03 AM EDT): Mild symptoms, started 2 days ago Recommend treating sxs: antihistamine, throat lozenges, warm salt water gargles, rest, fluids Recommend at home COVID testing as well Will contact office if worsening, or not improving or if positive test NAD URI, acute/11/2023 Assessment & Plan (07/10/2023 9:33 AM EST): Non toxic, does not appear in acute distress Will trial OTC loratadine Will send in z pack if symptoms worsen, had recent eye lid surgery which also causing a lot of sinus pressure Hypertensive rqxhkdyb06 Assessment & Plan (05/20/2023 10:31 AM EST): Went back to 1 lisinopril daily blood pressure reads look good Assessment & Plan (05/01/2023 12:52 PM EST): At this point her last 2 visits in old EHR DBP 100's We will increase lisinopril 20mg BID Continue at home reads Fu in 2 weeks Immunizations ImmunizationAdministration DatesNext DueInfluenza, High-dose Seasonal, Quadrivalent, Preservative Free02/23/2021Influenza, injectable, MDCK, preservative free, mdzjzhaprkns18/10/2024Influenza, injectable, quadrivalent, preservative free02/26/2018Influenza, seasonal, ntjzdworzv47/05/2017Influenza, seasonal, injectable, preservative free03/23/2016Zoster, Xthwhanqsik21/27/2018, 09/04/2017 Family History Medical HistoryRelationNameCommentsStomach cancerFatherCOPDMotherHTNMother RelationNameStatusCommentsFatherDeceasedMotherAlive Social History Tobacco UseTypesPacks/DayYears UsedDateSmoking Tobacco: FormerCigarettesQuit: 2016Passive Smoke Exposure: PastSmokeless Tobacco: Never Tobacco Cessation:Counseling Given: No Alcohol UseStandard Drinks/WeekCommentsNever2 (1 standard drink = 0.6 oz pure alcohol)caffine: 3cups [id number] Health LiteracyAnswerDate RecordedHow often do you need to have someone help you when you read instructions, pamphlets, or other written material from your doctor or pharmacy?Never06/16/2024Humiliation, Afraid, Rape, and Kick questionnaireAnswerDate RecordedWithin the last year, have you been afraid of your partner or ex-partner?No05/13/2023Within the last year, have you been humiliated or emotionally abused in other ways by your partner or ex-partner?No05/13/2023Within the last year, have you been kicked, hit, slapped, or otherwise physically hurt by your partner or ex-partner?No 05/13/2023Within the last year, have you been raped or forced to have any kind of sexual activity by your partner or ex-partner?No05/13/2023Social Connection and Isolation PanelAnswerDate RecordedIn a typical week, how many times do you talk on the phone with family, friends, or neighbors?Three times a week 06/16/2024How often do you get together with friends or relatives?Twice a week 06/16/2024How often do you attend mosque or baptism services?Never06/16/2024Do you belong to any clubs or organizations such as mosque groups, unions, fraternal or athletic groups, or school groups?No06/16/2024How often do you attend meetings of the clubs or organizations you belong to?Never06/16/2024re you , , , , never , or living with a partner?Ophggkg2806/16/2024UDIT-CAnswerDate RecordedQ1: How often do you have a drink containing alcohol?2-4 times a month06/16/2024Q2: How many drinks containing alcohol do you have on a typical day when you are drinking?1 or 2 06/16/2024Q3: How often do you have six or more drinks on one occasion?Less than jmesvwg3906/16/2024Overall Financial Resource Strain (CARDIA)AnswerDate Recorded How hard is it for you to pay for the very basics like food, housing, medical care, and heating?Not hard at all06/16/2024PHQ-2AnswerDate RecordedPatient Health Questionnaire-2 Hmgfd658Finmountain view hospital [place] of Occupational Health - Occupational Stress QuestionnaireAnswerDate RecordedDo you feel stress - tense, restless, nervous, or anxious, or unable to sleep at night because your mind is troubled all the time - these days?Only a fzotnh6206/16/2024Exercise Vital SignAnswerDate RecordedOn average, how many days per week do you engage in moderate to strenuous exercise (like a brisk walk)?1 day06/16/2024On average, how many minutes do you engage in exercise at this level?30 min06/16/2024Hunger Vital SignAnswerDate RecordedWithin the past 12 months, you worried that your food would run out before you got the money to buymore.Never true06/16/2024 Within the past 12 months, the food you bought just didn't last and you didn't have money to get more.Never true06/16/2024PRAPARE - TransportationAnswerDate RecordedIn the past 12 months, has lack of transportation kept you from medical appointments or from getting medications?No06/16/2024In the past 12 months, has lack of transportation kept you from meetings, work, or from getting things needed for daily living?No06/16/2024Housing Stability Vital SignAnswerDate RecordedIn the last 12 months, was there a time when you were not able to pay the mortgage or rent on time?No05/13/2023In the last 12 months, how many places have you lived?In the last 12 months, was there a time when you did not have a steady place to sleep or slept in ashelter (including now)?No 05/13/2023Housing Stability Vital SignAnswerDate RecordedIn the last 12 months, was there a time when you were not able to pay the mortgage or rent on time?No 06/16/2024In the past 12 months, how many times have you moved where you were living?t any time in the past 12 months, were you homeless or living in a fci (including now)?No06/16/2024CommentsUnknownSex and Gender InformationValueDate RecordedSex Assigned at YxxgtGchaiz16/20/2023 11:48 AM EST Legal GwkHsfqpe24/15/2023 10:10 AM ESTGender AnxjtybqLzwukz29/20/2023 11:48 AM ESTSexual OrientationNot on file Last Filed Vital Signs Vital SignReadingTime TakenCommentsBlood Yqognjju957/7007 8:38 AM EDT Lfhdn434812/09/2024 8:38 AM SZLVzcfjlxdgad88.7 ??C (98.1 ??F)12/09/2024 8:38 AM EDTRespiratory Oiwx016412/09/2024 8:38 AM EDTOxygen Azjtyrpxqh36%12/09/2024 8:38 AM EDTInhaled Oxygen Concentration--Bnvskf64.2 kg (143 lb 12.8 oz)12/09/2024 8:38 AM KQJParkfl603 cm (5' 3 )10/08/2024 9:49 AM EDTBody Mass Index25.47 10/08/2024 9:49 AM EDT Plan of Treatment Health MaintenanceDue DateLast DoneCommentsCT Fzpmqsnystzu20/06/1956FIT 1955FOBT1955 4324Grfnatjupghun65/06/1956FIT-DNACOVID- 19 Vaccine ( season), 08/05/2020, 07/16/2020 Fezvkhhas78/, 05/22/2023, 05/22/2023, Additional history exists Medicare Annual Wellness (AWV), 06/17/2023, 06/17/2023 Zbniicgxqof56Colorectal Cancer Pjweqwwyy44/27/2030Influenza YqlgdenWjzziytelemz34/10/2024, 02/23/2021, 02/26/2018, Additional history exists Pneumococcal Vaccine: 65+ YearsDiscontinued Procedures Procedure NamePriorityDate/TimeAssociated DiagnosisCommentsMM TOMOSYNTHESIS SCREENING BI05/27/2024 10:02 AM EST from Last 3 Months or Most Recently Relevant to Health Maintenance Results * MM TOMOSYNTHESIS SCREENING BI (05/27/2024 10:02 AM EST)Anatomical Region LateralityModalityOtherSpecimen (Source)Anatomical Location / Laterality Collection Method / VolumeCollection TimeReceived Time05/27/2024 10:02 AM EST Narrative 05/27/2024 10:03 AM EST [facility] ?[address] ? [place] [address] ? Mammography Report ? Signed ? Patient: EDILMA LEONARDO ?MR#: [id number] ?? : 1955 ?Acct:[id number] ?? Age/Sex: 68 / F ?ADM Date: 05/27/ ?? Loc: MAMMO ? Attending Dr: Laure J Chloe COUNTER INTELLIGENCE AGENT ? Ordering Physician: Laure Corona COUNTER INTELLIGENCE AGENT ?Results: ? Date of Service: //25 ?Follow Up: ? Procedure(s): MM tomosynthesis screening BI ?? Accession Number(s): [id number] ? cc: Chloe,Laure COUNTER INTELLIGENCE AGENT ? Patient Name: ? EDILMA BRIDINGER ? MR#: [id number] ? : 1955 ? Exam Date: 05/27/2024 ?? Ordering Doctor: RAFIA Corona CNP ? RADIOLOGY REPORT ? PROCEDURE: ? MM TOMOSYNTHESIS SCREENING BI ? COMPARISON: ? [facility] MAMM SCREEN 3D TACO CAD, 10/31/2021. ??MM TOMOSYNTHESIS ?? SCREENING BI, 05/22/2023. ? INDICATIONS: ? Screening ? Calculator Name ? NCI Breast Cancer Risk Assessment Tool ?? 5 Year Breast Cancer Risk ? 1.40% ?? Lifetime Breast Cancer Risk ? 4.30% ?? Personal Breast Cancer ?No ?? Personal Ovarian Cancer ? No ?? Treatments ? None ?? Family Cancers ? Grandmother-maternal with throat cancer at age ??60; ?? Mother with lung cancer at age 82; Father with throat cancer at age 82. ? LOCATION: ? [facility] ? BREAST COMPOSITION: ? The breasts are heterogeneously dense,which may ?? obscure small masses. ? FINDINGS: ? DIAGNOSTIC CATEGORY 1--NEGATIVE. NO CHANGE FROM COMPARISON ASSESSMENT. ? Scattered benign-appearing calcifications are present. ??Scattered ?? benign-appearing lymph nodes are present. ? RIGHT BREAST: ??No significant suspicious finding. ? LEFT BREAST: ??No significant suspicious finding. ? RECOMMENDATIONS: ? ROUTINE MAMMOGRAM AND CLINICAL EVALUATION IN 12 MONTHS. ? PLEASE NOTE: ??A NORMAL MAMMOGRAM DOES NOT EXCLUDE THE POSSIBILITY OF BREAST ?? CANCER. ??A CLINICALLY SUSPICIOUS PALPABLE LUMP SHOULD BE BIOPSIED. ? Dictated by: Alessandro Unger MD on 05/27/2024 at 09:55 ? Approved by: Alessandro Unger MD on 05/27/2024 at 10:02 ? Dictated By: ?Alessandro Unger M.D. ? Signed By: ?05/27/24 1003 ? DD/ 1002 ? TD/TT: ? Printer Slotter Feeder: Procedure Note Radiology, Radiologist, MD - 05/27/2024 [place] [address] Mammography Report Signed Patient: EDILMA LEONARDO LMR#: [id number] : 5Acct:[id number] Age/Sex: 68 / FADM Date: 05/27/24 Loc: MAMMO Attending Dr: Laure Corona NP Ordering Physician: Laure Corona NPResults: Date of Service: 05/27/24Follow Up: Procedure(s): MM tomosynthesis screening BI Accession Number(s): [id number] cc: Laure Corona COUNTER INTELLIGENCE AGENT Patient Name: EDILMA LEONARDO MR#: [id number] : 1955 Exam Date: 05/27/2024 Ordering Doctor: [...] throat cancer at age 81. LOCATION: [facility] BREAST COMPOSITION: The breasts are heterogeneously [...] M.D. Signed By:05/27/24 1003 DD/ 1002 TD/TT: Printer Slotter Feeder: Authorizing ProviderResult TypeResult StatusLisa Chloe NPCLINISYNC IMAGING Final Result from Last 3 Months or Most Recently Relevant to Health Maintenance Insurance Care Teams Team MemberRelationshipSpecialtyStart DateEnd Date Olu Coelho MD PCP - GeneralFamily Medicine07/10/23 Laure Corona NP [address] [place] [address] PCP - ACO Reach06/19/24 Laure Corona NP Nurse PractitionerFamily Jtplblmu88/20/23 Laure Corona NP Nurse PractitionerFamily Medicine07/10/23
--- OUTSIDE RECORDS SUMMARY | 2025-03-16 10:29 | XMS_ITS | Encounter Summary ---
Author Organization [facility] Address [address] [place] [address] Care Team Providers Care Corporate Securities Research Analyst Name Role Phone Laure Corona NP Unavailable [phone] Olu Coelho MD Primary Care Provider [phone] Laure Corona JURY CONSULTANT Unavailable [phone] Laure Corona NP Unavailable [phone] Encounter Details DateTypeDepartmentCare Team (Latest Contact Info)Bgatwgtddxc87/15/2025linisync Result Encounter [facility] Department Unsolicited Laure Corona, JURY CONSULTANT [address] [place] [address] Social History Tobacco UseTypesPacks/DayYears UsedDateSmoking Tobacco: FormerCigarettesQuit: 2016Passive Smoke Exposure: PastSmokeless Tobacco: NeverAlcohol UseStandard Drinks/WeekCommentsNever2 (1 standard drink = 0.6 oz pure alcohol)caffine: 3cups [id number] Health LiteracyAnswerDate RecordedHow often do you need [...] your partner or ex-partner?No05/13/2023Social Connection and Isolation Panel AnswerDate RecordedIn a typical week, how many times do you talk on the phone with family, friends, or neighbors?Three times a week06/16/2024How often do you get together with friends or relatives?Twice a week06/16/2024How often do you attend methodist or hindu services?Never06/16/2024Do you belong to any clubs or organizations such as methodist groups, unions, fraternal or athletic groups, or school groups?No06/16/2024How often do you attend meetings of the clubs or organizations you belong to?Never06/16/2024re you , , , , never , or living with a partner?Xivjmhj6106/16/2024UDIT-C AnswerDate RecordedQ1: How often do you have a drink containing alcohol?2-4 times a month06/16/2024Q2: How many drinks containing alcohol do you have on a typical day when you are drinking?1 or Q3: How often do you have six or more drinks on one occasion?Less than infljlc4306/16/2024Overall Financial Resource Strain (CARDIA)AnswerDate RecordedHow hard is it for you to pay for the very basics like food, housing, medical care, and heating?Not hard at all 06/16/2024PHQ-2AnswerDate RecordedPatient Health Questionnaire-2 Score0 06/23/2024[facility] [place] of Occupational Health - Occupational Stress QuestionnaireAnswerDate RecordedDo you feel stress - tense, restless, nervous, or anxious, or unable to sleep at night because yourmind is troubled all the time - these days?Only a wnkdwa4806/16/2024Exercise Vital SignAnswerDate Recorded On average, how many days per week do [...] 12 months, how many places have you lived?1 05/13/2023In the last 12 months, was there a time when you did not have a steady place to sleep or slept in [facility] (including now)?No05/13/2023Housing Stability Vital SignAnswerDate RecordedIn the last 12 months, was there a time when you were not able to pay the mortgage or rent on time?No06/16/2024In the past 12 months, how many times have you moved where you were living? At any time in the past 12 months, were you homeless or living in a correction (including now)?No06/16/2024CommentsUnknownSex and Gender Information ValueDate RecordedSex Assigned at IybfdBcfuxs39/20/2023 11:48 AM ESTLegal Sex Fvcbrw0404/26/2023 10:10 AM ESTGender WjfrtsoyBveoww24/20/2023 11:48 AM ESTSexual OrientationNot on filedocumented as of this encounter Functional Status * AUDIT-C ScoreAnswerDate of MoxrmuxwqrQregzh110/04/2025 9:24 AM Nettie Cornell * Q1: How often do you have a drink containing alcohol?AnswerDate of Assessment Author2-4 times a month06/16/2024 9:24 AM Aneta Generic * Q2: How many drinks containing alcohol do you have on a typical day when you are drinking?AnswerDate of AssessmentAuthor1 or 9:24 AM EST Franklin Generic * Q3: How often do you have six or more drinks on one occasion?AnswerDate of AssessmentAuthorLess than hcsbsno7306/16/2024 9:24 AM Aneta Generic * Over the past 2 weeks, how often have you been bothered by any of the following problems?QuestionAnswerDate of AssessmentAuthorLittle interest or pleasure in doing thingsNot at all06/23/2024 10:00 AM Maryellen Tovar MAFeeling down, depressed, or hopelessNot at all06/23/2024 10:00 AM Maryellen Hsieh MAPatient Health Questionnaire-2 Fczju102 10:00 AM Maryellen Tovar MA * QuestionAnswerDate of AssessmentAuthorTrouble falling or staying asleep, or sleeping too muchSeveral days06/23/2024 10:00 AM Maryellen Tovar MA Feeling tired or having little energyNot at all06/23/2024 10:00 AM Maryellen Hsieh MAPoor appetite or overeatingSeveral days06/23/2024 10:00 AM Maryellen Tovar MAFeeling bad about yourself - or that you are a failure or have let yourself or your family downNot at all06/23/2024 10:00 AM Maryellen Tovar MATroubvipul concentrating on things, such as reading the newspaper or watching televisionNot at all06/23/2024 10:00 AM Maryellen Tovar MAMoving or speaking so slowly that other people could have noticed? Or the opposite - being so fidgety or restless that you have been moving around a lot more than usual.Not at all06/23/2024 10:00 AM ESTMaryellen Coy MAThoughts that you would be better off or hurting yourself in some wayNot at all06/23/2024 10:00 AM Maryellen Tovar MAPatient Health Questionnaire-9 Sxsgh463 10:00 AM Maryellen Tovar MA documented as of this encounter Plan of Treatment Not on file documented as of this encounter Procedures Procedure NamePriorityDate/TimeAssociated DiagnosisCommentsMM TOMOSYNTHESIS SCREENING BI05/27/2024 10:02 AM EST documented in this encounter Results * MM TOMOSYNTHESIS SCREENING BI (05/27/2024 10:02 AM EST)Anatomical Region LateralityModalityOtherSpecimen (Source)Anatomical Location / Laterality Collection Method / VolumeCollection TimeReceived Time05/27/2024 10:02 AM EST Narrative 05/27/2024 10:03 AM EST [facility] ?[address] ? [place] [address] ? Mammography Report ? Signed ? Patient: EDILMA LEONARDO L ?MR#: [id number] ?? : 1955 ?Acct:[id number] ?? Age/Sex: 68 / F ?ADM Date: 05/27/24 ?? Loc: MAMMO ? Attending Dr: Laure J Chloe JURY CONSULTANT ? Ordering Physician: Laure Corona JURY CONSULTANT ?Results: ? Date of Service: // ?Follow Up: ? Procedure(s): MM tomosynthesis screening BI ?? Accession Number(s): [id number] ? cc: Laure Corona JURY CONSULTANT ? Patient Name: ? EDILMA LEONARDO ? MR#: [id number] ? : 1955 ? Exam Date: 05/27/2024 [...] 1003 ? DD/ 1002 ? TD/TT: ? [employer] Processor: Procedure Note Radiology, Radiologist, - 05/27/2024 [place] [address] Mammography Report Signed Patient: EDILMA LEONARDO LMR#: [id number] : 5Acct:[id number] Age/Sex: 68 / FADM Date: 05/27/24 Loc: MAMMO Attending Dr: Laure Corona NP Ordering Physician: Laure Corona NPResults: Date of Service: 05/27/24Follow Up: Procedure(s): MM tomosynthesis screening BI Accession Number(s): [id number] cc: Laure Corona NP Patient Name: EDILMA LEONARDO MR#: [id number] : 1955 Exam Date: 05/27/2024 Ordering Doctor: RAFIA Corona WEBSPHERE ADMINISTRATOR RADIOLOGY REPORT PROCEDURE: MM TOMOSYNTHESIS SCREENING BI [...] M.D. Signed By:05/27/24 1003 DD/ 1002 TD/TT: [employer] Processor: Authorizing ProviderResult TypeResult StatusLisa Chloe NPCLINISYNC IMAGING Final Result documented in this encounter Visit Diagnoses Not on filedocumented in this encounter Additional Health Concerns AssessmentNoted TimePHQ-9 Depression Total Score: 5:00 PM EST documented as of this encounter Care Teams Team MemberRelationshipSpecialtyStart DateEnd Date Olu Coelho MD [facility]CP [facility]Fab[facility]/10/23 Laure Corona NP [address] [place] [address] PCP - ACO Reach06/19/24 Laure Corona NP [facility]Card[facility] Pwfplnqz85/20/23 Laure Corona NP [facility]Card[facility] Medicine07/10/23documented as of this encounter
--- NOTE | 2025-03-16 10:54 | XR_ITS ---
The [address] [address] Patient Name: MARK SAL MRN: [id number] date: 1955 Sex: F Assigned Patient Location: [facility] Current Patient Location: [facility] Accession/Order Number: [id number] Exam Date: 03/16/2025 10:40 Report Date: 03/16/2025 11:09 At the request of: SANTI BENNETT NP Procedure: XR shoulder TACO min 2V CLINICAL HISTORY: Bilateral Shoulder and neck pain. No injury. CERVICAL SPINE - 3 views: COMPARISON: None AP, lateral and odontoid views were obtained. There is osteopenia. Straightening of the normal cervical lordosis is seen. No acute compression fractures are noted. There is slight retrolisthesis of C4 with respect to adjacent vertebra. There is disc space narrowing from C4 - 5 down. Endplate spurring and bilateral facet hypertrophy are seen. The atlantoaxial relationship is maintained. There is no prevertebral soft tissue swelling. XR/XR shoulder TACO min 2V IMPRESSION: DEGENERATIVE CHANGES. NO ACUTE PLAIN FILM FINDINGS. BILATERAL SHOULDERS - 3 views each COMPARISON: Chest x-ray 11/07/2023 AP, Y and Grashey views were obtained. There is no acute fracture or dislocation. There is mild hypertrophy at the right acromioclavicular joint and minimal at the left. There is also minor sclerosis at the greater tuberosities. No soft tissue abnormalities are identified. IMPRESSION: MINOR DEGENERATIVE CHANGE, GREATER ON THE RIGHT. NO ACUTE BONY FINDINGS. Impression dictated by: Rosa Kiser M.D. 03/16/2025 11:09 AM Dictation Location: [place] [address] Electronically authenticated by: [id number] Y Date: 03/16/2025 11:09
--- NOTE | 2025-03-16 10:54 | XR_ITS ---
The [address] [address] Patient Name: MARK SAL MRN: [id number] date: 1955 Sex: F Assigned Patient Location: [facility] Current Patient Location: [facility] Accession/Order Number: [id number] Exam Date: 03/16/2025 10:40 Report Date: 03/16/2025 11:09 At the request of: SANTI BENNETT NP Procedure: XR shoulder TACO min 2V CLINICAL HISTORY: Bilateral Shoulder and neck pain. No injury. CERVICAL SPINE - 3 views: COMPARISON: None AP, lateral and odontoid views were obtained. There is osteopenia. Straightening of the normal cervical lordosis is seen. No acute compression fractures are noted. There is slight retrolisthesis of C4 with respect to adjacent vertebra. There is disc space narrowing from C4 - 5 down. Endplate spurring and bilateral facet hypertrophy are seen. The atlantoaxial relationship is maintained. There is no prevertebral soft tissue swelling. XR/XR cervical spine 2-3V IMPRESSION: DEGENERATIVE CHANGES. NO ACUTE PLAIN FILM FINDINGS. BILATERAL SHOULDERS - 3 views each COMPARISON: Chest x-ray 11/07/2023 AP, Y and Grashey views were obtained. There is no acute fracture or dislocation. There is mild hypertrophy at the right acromioclavicular joint and minimal at the left. There is also minor sclerosis at the greater tuberosities. No soft tissue abnormalities are identified. IMPRESSION: MINOR DEGENERATIVE CHANGE, GREATER ON THE RIGHT. NO ACUTE BONY FINDINGS. Impression dictated by: Rosa Kiser M.D. 03/16/2025 11:09 AM Dictation Location: [place] [address] Electronically authenticated by: [id number] Y Date: 03/16/2025 11:09
== END 2025-03-16 10:26 | disposition home or self-care (01) ==
PROVIDERS: PCP Nurse Practitioner; Visit Provider Nurse Practitioner
DX: M25.511 Pain in right shoulder (principal); M25.512 Pain in left shoulder; M54.2 Cervicalgia
CPT/HCPCS: 72040; 73030